=== PATIENT | female | born 1940 | race Caucasian/White ===

== ENCOUNTER 2016-12-03 10:37 | Outpatient (CLI) | payer MEDICARE, OTHER ==
--- NOTE | 2016-12-03 11:18 | XRAY Report ---
TWO VIEW CHEST: 12/03/2016 CLINICAL INDICATION: A 76-year-old with cough, [id number] smoking history, recent upper respiratory infection. COMPARISON: 04/28/2006. FINDINGS: Frontal and lateral views of the chest demonstrate a normal cardiac silhouette. The lungs are clear. No effusion or pneumothorax is present. IMPRESSION: NO EVIDENCE OF ACUTE CARDIOPULMONARY DISEASE. 11:9:30 JOB #: [id number] EXT JOB #:[id number]
== END 2016-12-03 10:38 | disposition home or self-care (01) ==
LOC: DI 10:37
PROVIDERS: ATTEND Physician Assistant Medical
DX: R05 Cough (principal)
CPT/HCPCS: 71020

== ENCOUNTER 2017-01-07 08:15 | Outpatient (CLI) | payer MEDICARE, OTHER ==
[2017-01-07 15:52] LABS: BASOPHILS # (AUTO) 0.1 10^3/uL (0.0-0.1); BASOPHILS % (AUTO) 1.3 %; EOSINOPHILS # (AUTO) 0.4 10^3/uL (0.0-0.7); EOSINOPHILS % (AUTO) 6.7 %; HCT - HEMATOCRIT 40.7 % (37.0-47.0); HGB - HEMOGLOBIN 13.6 g/dL (12.0-16.0); LYMPHOCYTES # (AUTO) 1.6 10^3/uL (1.5-3.5); LYMPHOCYTES % (AUTO) 27.4 %; MEAN CORPUSCULAR HEMOGLOBIN 32.1 pg (27.0-31.0); MEAN CORPUSCULAR HGB CONC 33.4 g/dL (32.0-36.0); MEAN CORPUSCULAR VOLUME 95.9 fL (81.0-99.0); MEAN PLATELET VOLUME 7.2 fL (7.9-10.8); MONOCYTES # (AUTO) 0.5 10^3/uL (0.0-1.0); MONOCYTES % (AUTO) 8.9 %; NEUTROPHILS # (AUTO) 3.3 10^3/uL (1.5-6.6); NEUTROPHILS % (AUTO) 55.7 %; NUCLEATED RED BLOOD CELLS AUTO 0.1 /100WBC; RED BLOOD COUNT 4.25 10^6/uL (4.20-5.40); RED CELL DISTRIBUTION WIDTH 13.9 % (12.0-15.0); UNCORRECTED WHITE BLOOD COUNT 5.9 x10^3/uL; WHITE BLOOD COUNT 5.9 x10^3/uL (4.8-10.8)
[2017-01-07 16:07] LABS: ALBUMIN/GLOBULIN RATIO 1.5 (1.0-2.2); BILIRUBIN,TOTAL 0.8 mg/dL (0.2-1.0); BUN - BLOOD UREA NITROGEN 13 mg/dL (6-20); CALCIUM 9.6 mg/dL (8.5-10.3); CARBON DIOXIDE - CO2 29 mmol/L (21-32); CHLORIDE 104 mmol/L (101-111); CHOL/HDL RATIO 2.8 (<4.4); CHOLESTEROL 165 mg/dL; CREATININE 0.8 mg/dL (0.4-1.0); GFR - MDRD 70 (>89); GLUCOSE 100 mg/dL (70-100); HDL CHOLESTEROL 59 mg/dL; LDL/HDL RATIO 1.5 (<4.4); SODIUM 142 mmol/L (135-145); TOTAL PROTEIN 6.7 g/dL (6.7-8.2); TRIGLYCERIDES 98 mg/dL; VLDL CHOLESTEROL 20 mg/dL
== END 2017-01-07 08:16 | disposition home or self-care (01) ==
LOC: LAB.R 08:15
PROVIDERS: ATTEND Physician Assistant Medical
DX: M81.0 Age-related osteoporosis without current pathological fracture (principal); F41.9 Anxiety disorder, unspecified; Z79.899 Other long term (current) drug therapy
CPT/HCPCS: 80053; 80061; 82306; 84443; 85025

== ENCOUNTER 2017-07-08 12:00 | Outpatient (CLI) | payer MEDICARE, OTHER ==
--- NOTE | 2017-07-09 14:01 | XRAY Report ---
EXAM: RIGHT HAND RADIOGRAPHY EXAM DATE: 07/08/2017 12:13 PM. CLINICAL HISTORY: Osteoarthritis of hand. COMPARISON: None. TECHNIQUE: 3 views. FINDINGS: Bones: Normal. No fractures or bone lesions. Joints: Moderately severe osteoarthritic change seen at the first CMC joint with "olbw-fu-ofli" appea rajan and marginal arthrosis. IP joints at the second through fifth fingers are also moderately narrow. Soft Tissues: Normal. No soft tissue swelling. IMPRESSION: 1. Moderate to severe osteoarthritic change at the first CMC joint with "nugd-il-shlk" appearance and marginal arthrosis. 2. IP joints of the second to fifth fingers also moderately narrow. [facility] Referring Provider Line: [phone] SITE ID: [id number]
== END 2017-07-08 12:01 | disposition home or self-care (01) ==
LOC: DI 12:00
PROVIDERS: ATTEND Physician Assistant Medical
DX: M19.041 Primary osteoarthritis, right hand (principal)

== ENCOUNTER 2017-12-13 16:48 | Emergency (ER) | payer MEDICARE, OTHER ==
--- NOTE | 2017-12-13 17:07 | ED Physician Documentation ---
PD HPI NVD - Stated complaint Stated Complaint: V/D - Chief complaint Chief Complaint: Abd Pain - History obtained from History obtained from: Patient - History of Present Illness Timing - onset: How many hours ago (4), Today Timing - duration: Hours (4) Timing - details: Abrupt onset, Still present Associated symptoms: No: Fever, Abdominal pain, Hematemesis, Hematochezia, Near syncope / syncope Contributing factors: Bad food (she had eggs benedict at [employer] this mroning and thought it tasted bad.). No: Sick contact Improved by: No: Vomiting Worsened by: Eating Similar symptoms before: Has not had sx before Recently seen: Not recently seen Review of Systems Constitutional: denies: Fever, Chills, Myalgias Nose: denies: Rhinorrhea / runny nose, Congestion Throat: denies: Sore throat Cardiac: denies: Chest pain / pressure Respiratory: denies: Cough GI: reports: Nausea, Vomiting, Diarrhea. denies: Abdominal Pain, Abdominal Swelling : denies: Dysuria, Frequency Skin: denies: Rash, Lesions Neurologic: denies: Near syncope, Altered mental status PD PAST MEDICAL HISTORY - Past Medical History Cardiovascular: Hypertension, Coronary artery disease, [place] Respiratory: None Endocrine/Autoimmune: None GI: None : None HEENT: Macular degeneration Psych: None Musculoskeletal: None Derm: None - Past Surgical History Past Surgical History: Yes General: Appendectomy Cardiovascular: Coronary stent - Present Medications Home Medications: Ambulatory Orders Medication Instructions Recorded Confirmed Aspirin [Aspir 81] 81 mg PO DAILY 06/16/13 08/26/15 Atorvastatin Calcium [Lipitor] 60 mg PO HS 06/16/13 08/26/15 Carvedilol [Coreg] 3.125 mg PO BID 06/16/13 08/26/15 Hydrocodone/Acetaminophen [[place] 10 - 325 mg PO 5XD 08/27/15 08/27/15 10-325 Tablet] LORazepam [Lorazepam] 1 mg PO QPM 08/27/15 08/27/15 Diphenoxylate HCl/Atropine 1 each PO Q6H PRN #12 tablet 12/13/17 [Diphenoxylate-Atrop 2.5-0.025] Ondansetron Odt [Zofran] 4 mg TL Q6H PRN #10 tablet 12/13/17 - Allergies Allergies/Adverse Reactions: Allergies Allergy/AdvReac Type Severity Reaction Status Date / Time clopidogrel bisulfate * Allergy Severe Rash Verified 08/26/15 09:41 [From Plavix] erythromycin base Allergy Mild Rash Verified 08/26/15 09:41 [Erythromycin Base] Penicillins Allergy Mild Rash Verified 08/26/15 09:41 spironolactone Allergy Mild Rash Verified 08/26/15 09:41 diazepam [From Valium] AdvReac Mild Anxiety Verified 08/26/15 09:41 - Social History Does the pt smoke?: No Smoking Status: Never smoker Does the pt drink ETOH?: Yes Does the pt have substance abuse?: No PD ED PE NORMAL - Vitals Vital signs reviewed: Yes - General General: Alert and oriented X 3, Well developed/nourished, Other (actively vomiting. Appears uncomfortable. ) - HEENT HEENT: Pharynx benign - Neck Neck: Supple, no meningeal sign, No adenopathy - Cardiac Cardiac: RRR, No murmur - Respiratory Respiratory: Clear bilaterally - Abdomen Abdomen: Soft, Non tender, Non distended, No organomegaly. No: Normal bowel sounds (increased) - Female Female : Deferred - Rectal Rectal: Deferred - Back Back: No CVA TTP - Derm Derm: Normal color, Warm and dry - Extremities Extremities: No tenderness to palpate, Normal ROM s pain - Neuro Neuro: Alert and oriented X 3, No motor deficit, Normal speech Results - Vitals Vitals: Vital Signs - 24 hr 12/13/17 12/13/17 16:56 18:52 Temperature 35.8 C L Heart Rate 86 90 Respiratory 20 16 Rate Blood Pressure 187/97 H 169/86 H O2 Saturation 100 97 Oxygen O2 Source Room air - Labs Labs: Laboratory Tests 12/13/17 17:39 Sodium 141 Potassium 3.4 L Chloride 104 Carbon Dioxide 25 Anion Gap 12.0 BUN 15 Creatinine 0.8 Estimated GFR (MDRD) 70 L Glucose 128 H Calcium 9.6 Total Bilirubin 1.1 H AST 27 ALT 29 Alkaline Phosphatase 95 Total Protein 7.1 Albumin 4.5 Globulin 2.6 Albumin/Globulin Ratio 1.7 Lipase 49 PD MEDICAL DECISION MAKING - ED course Complexity details: re-evaluated patient (much improved with IV fluids and meds , and taking orals well. Feels much better. ), considered differential (abrupt onset vomiting and diarrhea without abd pain nor tenderness. I did not feel workup needed. ), d/w patient Departure - Departure Disposition: 01 Home, Self Care Clinical Impression: Nausea vomiting and diarrhea Food poisoning Qualifiers: Encounter type: initial encounter Injury intent: accidental or unintentional Qualified Code(s): T62.91XA - Toxic effect of unspecified noxious substance eaten as food, accidental (unintentional), initial encounter Condition: Stable Record reviewed to determine appropriate education?: Yes Instructions: ED Food Poison Or Gastroenteritis Follow-Up: Madiha Daley PA-C [Primary Care Provider] - Prescriptions: Diphenoxylate HCl/Atropine [Diphenoxylate-Atrop 2.5-0.025] 1 each PO Q6H PRN # 12 tablet PRN Reason: Diarrhea Ondansetron Odt [Zofran] 4 mg TL Q6H PRN #10 tablet PRN Reason: Nausea / Vomiting Comments: Abrupt symptoms of stomach virus or food poisoning like this typically is short lived and will improve in 12-24 hours. Use ondansetron if needed for nausea and Lomotil if needed for diarrhea. Tylenol if needed for cramps or pains. Small frequent fluids. [place] food initially and progress as able. Recheck if not better in a day. Discharge Date/Time: 12/13/17 19:18
[2017-12-13] MEDS ORDERED: SODIUM CHLORIDE 0.9% 1,000 ML IV ONE (17:23)
[2017-12-13] MEDS ORDERED: ONDANSETRON 4 MG/2 ML VIAL IVP STA (17:23)
[2017-12-13] MEDS ORDERED: DIPHENOX/ATROPINE 2.5/0.025 MG TABLET PO STA (17:24)
[2017-12-13 17:57] LABS: ALBUMIN 4.5 g/dL (3.2-5.5); ALBUMIN/GLOBULIN RATIO 1.7 (1.0-2.2); BILIRUBIN,TOTAL 1.1 mg/dL (0.2-1.0); CALCIUM 9.6 mg/dL (8.5-10.3); CREATININE 0.8 mg/dL (0.4-1.0); TOTAL PROTEIN 7.1 g/dL (6.7-8.2)
[2017-12-13 18:53] VITALS: BP 169/86
== END 2017-12-13 19:18 | disposition home or self-care (01) ==
LOC: ED 16:48
DX: T62.8X1A Toxic effect of other specified noxious substances eaten as food, accidental (unintentional), initial encounter (principal); R11.2 Nausea with vomiting, unspecified; R19.7 Diarrhea, unspecified; I10 Essential (primary) hypertension; Z79.82 Long term (current) use of aspirin
CPT/HCPCS: 36415; 80053; 83690; 96361; 96374; 99283; A9270

== ENCOUNTER 2018-01-14 08:35 | Outpatient (CLI) | payer MEDICARE, OTHER ==
[2018-01-14 11:45] LABS: BASOPHILS # (AUTO) 0.1 10^3/uL (0.0-0.1); BASOPHILS % (AUTO) 0.9 %; EOSINOPHILS # (AUTO) 0.3 10^3/uL (0.0-0.7); EOSINOPHILS % (AUTO) 4.9 %; LYMPHOCYTES # (AUTO) 1.4 10^3/uL (1.5-3.5); LYMPHOCYTES % (AUTO) 24.2 %; MEAN CORPUSCULAR HEMOGLOBIN 33.1 pg (27.0-31.0); MEAN CORPUSCULAR HGB CONC 33.4 g/dL (32.0-36.0); MEAN CORPUSCULAR VOLUME 99.4 fL (81.0-99.0); MEAN PLATELET VOLUME 7.1 fL (7.9-10.8); MONOCYTES # (AUTO) 0.5 10^3/uL (0.0-1.0); MONOCYTES % (AUTO) 8.9 %; NEUTROPHILS # (AUTO) 3.6 10^3/uL (1.5-6.6); NEUTROPHILS % (AUTO) 61.1 %; PLT - PLATELET COUNT 280 10^3/uL (130-450); RED BLOOD COUNT 4.22 10^6/uL (4.20-5.40); RED CELL DISTRIBUTION WIDTH 13.9 % (12.0-15.0); WHITE BLOOD COUNT 5.9 x10^3/uL (4.8-10.8)
[2018-01-14 11:57] LABS: ALBUMIN/GLOBULIN RATIO 1.7 (1.0-2.2); ALKALINE PHOSPHATASE 82 IU/L (42-121); ALT ALANINE AMINOTRANSFERASE 18 IU/L (10-60); AST ASPARTATE AMINOTRANSFERASE 21 IU/L (10-42); BILIRUBIN,TOTAL 0.5 mg/dL (0.2-1.0); BUN - BLOOD UREA NITROGEN 14 mg/dL (6-20); CALCIUM 9.1 mg/dL (8.5-10.3); CARBON DIOXIDE - CO2 29 mmol/L (21-32); CHLORIDE 103 mmol/L (101-111); CHOL/HDL RATIO 2.7 (<4.4); CHOLESTEROL 159 mg/dL; CREATININE 0.6 mg/dL (0.4-1.0); GFR - MDRD 97 (>89); GLUCOSE 90 mg/dL (70-100); HDL CHOLESTEROL 59 mg/dL; LDL CHOLESTEROL,CALCULATED 80 mg/dL; LDL/HDL RATIO 1.4 (<4.4); SODIUM 139 mmol/L (135-145); TOTAL PROTEIN 6.4 g/dL (6.7-8.2); VLDL CHOLESTEROL 20 mg/dL
== END 2018-01-14 08:36 | disposition home or self-care (01) ==
LOC: LAB.R 08:35
PROVIDERS: ATTEND Physician Assistant Medical
DX: M81.0 Age-related osteoporosis without current pathological fracture (principal); Z79.899 Other long term (current) drug therapy; I10 Essential (primary) hypertension; E78.2 Mixed hyperlipidemia; F41.9 Anxiety disorder, unspecified
CPT/HCPCS: 80053; 80061; 82306; 83721; 84443; 85025

== ENCOUNTER 2018-01-24 10:10 | Outpatient (CLI) | payer MEDICARE, OTHER ==
--- NOTE | 2018-01-24 13:45 | DEXA Report ---
Procedure Date: 01/24/2018 Accession Number: [id number] / [id number] Procedure: DEX - Dexa Spine and/or Hip CPT Code: FULL RESULT: EXAM: Dexa Spine and/or Hip DATE: 01/24/2018 10:33 AM CLINICAL HISTORY: POSTMENOPAUSAL TECHNIQUE: Dual energy x-ray absorptiometry (DXA) was performed on a COTA System. Regions measured are the AP Spine, femoral neck, and if needed forearm. COMPARISON: None. In accordance with the International Society for Clinical Densitometry (ISCD) guidelines, data from previous exams may be reanalyzed using current recommendations and techniques. This is done to allow a more accurate basis for comparison with the current study. FINDINGS: The data for the lumbar spine is as follows: BMD (g/cm/cm) T-SCORE Z-SCORE REGION L1 0.907 -1.9 -0.6 L2 0.954 -2.0 -0.8 L3 1.088 -0.9 0.3 L4 1.243 0.4 1.6 TOTAL 1.059 -1.0 0.2 NOTE: All evaluable vertebrae are used for classification The data for the hip is as follows: BMD (g/cm/cm) T-SCORE Z-SCORE REGION Neck 0.806 -1.7 0.0 TOTAL 0.796 -1.7 -0.2 NOTE: The femoral neck or total proximal femur, whichever is lowest, is used for classification. IMPRESSION: THE WHO CLASSIFICATION BASED ON THE INTERNATIONAL REFERENCE STANDARD IS OSTEOPENIA. THE FRACTURE RISK IS INCREASED. RECOMMENDATION: Patients with diagnosis of osteoporosis or osteopenia should have regular bone mineral density assessment. For those eligible for Medicare, routine testing is allowed once every 2 years. Testing frequency can be increased for patients who have rapidly progressing disease or for those who are receiving medical therapy to restore bone mass. COMMENT: World Health Organization (WHO) definitions for osteoporosis and osteopenia: NORMAL BMD: T-score at -1.0 or higher, fracture risk is low OSTEOPENIA BMD: T-score between -1.0 and -2.5, fracture risk is increased. OSTEOPOROSIS BMD: T-score at -2.5 or lower, fracture risk is high. National Osteoporosis Foundation recommends: 1. Obtain adequate dietary calcium (at least 1200 mg per day) and vitamin D (400-800 international units per day). 2. Participate, as appropriate, in regular weightbearing and muscle-strengthening exercise. 3. Avoid tobacco use and reduce alcohol and caffeine intake. 4. For more detailed information see the website at www.NOF.org.
== END 2018-01-24 10:11 | disposition home or self-care (01) ==
LOC: DI 10:10
PROVIDERS: ATTEND Physician Assistant Medical
DX: M85.89 Other specified disorders of bone density and structure, multiple sites (principal)
CPT/HCPCS: 77080

== ENCOUNTER 2018-02-25 07:29 | Outpatient (CLI) | payer MEDICARE, OTHER ==
--- NOTE | 2018-02-25 13:24 | Ultrasound Report ---
Procedure Date: 02/25/2018 Accession Number: [id number] / [id number] Procedure: US - Retroperitoneal Limited CPT Code: FULL RESULT: EXAM: Retroperitoneal Limited DATE: 02/25/2018 8:26 AM CLINICAL HISTORY: AAA COMPARISON: 08/17/2015. TECHNIQUE: Real-time sonographic imaging of retroperitoneal vascular structures, including color-flow, was performed by the vegetable grader. Multiple canvas products sales representative static images were saved for review. FINDINGS: The infrarenal aortic aneurysm is stable at 2 x 2 centimeters in maximal diameter. The proximal abdominal aorta measures up to 2.3 cm in the mid abdominal aorta measures up to 2.3 cm. Right common iliac artery measures up to 0.9 x 1.3 cm and the left common iliac artery measures up to 1.0 x 1.2 cm. Vessels are patent by color Doppler. Atherosclerosis is noted throughout. IMPRESSION: Stable infrarenal abdominal aortic aneurysm, 3.2 cm. [facility]
== END 2018-02-25 07:30 | disposition home or self-care (01) ==
LOC: DI 07:29
PROVIDERS: ATTEND Physician Assistant Medical
DX: I71.4 Abdominal aortic aneurysm, without rupture (principal); Z78.0 Asymptomatic menopausal state
CPT/HCPCS: 76775

== ENCOUNTER 2018-08-23 08:00 | Outpatient (CLI) | payer MEDICARE, OTHER ==
[2018-08-23 13:10] LABS: BILIRUBIN,URINE NEGATIVE (NEGATIVE); GLUCOSE, URINE (UA) NEGATIVE (NEGATIVE); KETONES,URINE (UA) NEGATIVE (NEGATIVE); LEUKOCYTE ESTERASE, URINE SMALL (NEGATIVE); NITRITE,URINE NEGATIVE (NEGATIVE); OCCULT BLOOD,URINE NEGATIVE (NEGATIVE); PH,URINE 6.5 PH (5.0-7.5); PROTEIN,URINE NEGATIVE (NEGATIVE); UROBILINOGEN,URINE 0.2 (NORMAL) E.U./dL (NORMAL)
[2018-08-23 13:13] LABS: CLARITY,URINE CLEAR (CLEAR)
[2018-08-23 13:17] LABS: BACTERIA,URINE Rare /HPF (None Seen); RBC,URINE 0-5 /HPF (0-5); SQUAMOUS EPITHELIAL CELL,UR FEW Squamous (<= Few)
[2018-08-23 13:20] LABS: BASOPHILS # (AUTO) 0.1 10^3/uL (0.0-0.1); BASOPHILS % (AUTO) 0.8 %; EOSINOPHILS # (AUTO) 0.2 10^3/uL (0.0-0.7); EOSINOPHILS % (AUTO) 2.5 %; HGB - HEMOGLOBIN 13.1 g/dL (12.0-16.0); LYMPHOCYTES # (AUTO) 1.3 10^3/uL (1.5-3.5); LYMPHOCYTES % (AUTO) 15.5 %; MEAN CORPUSCULAR HEMOGLOBIN 34.2 pg (27.0-31.0); MEAN CORPUSCULAR VOLUME 97.7 fL (81.0-99.0); MEAN PLATELET VOLUME 7.3 fL (7.9-10.8); MONOCYTES # (AUTO) 0.5 10^3/uL (0.0-1.0); MONOCYTES % (AUTO) 6.4 %; NEUTROPHILS % (AUTO) 74.8 %; PLT - PLATELET COUNT 351 10^3/uL (130-450); RED BLOOD COUNT 3.82 10^6/uL (4.20-5.40); RED CELL DISTRIBUTION WIDTH 14.3 % (12.0-15.0); WHITE BLOOD COUNT 8.1 x10^3/uL (4.8-10.8)
[2018-08-23 13:36] LABS: ALBUMIN/GLOBULIN RATIO 1.6 (1.0-2.2); ALKALINE PHOSPHATASE 78 IU/L (42-121); ALT ALANINE AMINOTRANSFERASE 19 IU/L (10-60); AST ASPARTATE AMINOTRANSFERASE 22 IU/L (10-42); BILIRUBIN,TOTAL 0.4 mg/dL (0.2-1.0); BUN - BLOOD UREA NITROGEN 13 mg/dL (6-20); CALCIUM 9.5 mg/dL (8.5-10.3); CARBON DIOXIDE - CO2 28 mmol/L (21-32); CHLORIDE 102 mmol/L (101-111); CREATININE 0.7 mg/dL (0.4-1.0); GFR - MDRD 81 (>89); GLUCOSE 113 mg/dL (70-100); SODIUM 141 mmol/L (135-145); TOTAL PROTEIN 6.5 g/dL (6.7-8.2)
[2018-08-23 13:37] LABS: CRP - C-REACTIVE PROTEIN < 1.0 mg/dL (0-1.0)
== END 2018-08-23 23:59 | disposition home or self-care (01) ==
LOC: LAB.R 08:00
PROVIDERS: ATTEND Physician Assistant Medical
DX: R53.83 Other fatigue (principal); M15.9 Polyosteoarthritis, unspecified
CPT/HCPCS: 80053; 81001; 81003; 84443; 85025; 85651; 86140; 87086

== ENCOUNTER 2018-11-20 10:56 | Emergency (ER) | payer MEDICARE, OTHER ==
--- NOTE | 2018-11-20 12:03 | XRAY Report ---
Reason: SOB,cough Procedure Date: 11/20/2018 Accession Number: [id number] / [id number] Procedure: XR - Chest 2 View X-Ray CPT Code: 45475 FULL RESULT: EXAM: CHEST RADIOGRAPHY EXAM DATE: 11/20/2018 11:26 AM. CLINICAL HISTORY: SOB,cough. COMPARISON: CHEST 2 VIEW PA/LAT 12/03/2016 10:46 AM. TECHNIQUE: 2 views. FINDINGS: Lungs/Pleura: No focal opacities evident. No pleural effusion. No pneumothorax. Increased volumes noted. Bronchial wall thickening noted. Mediastinum: Heart and mediastinal contours are unremarkable. Other: None. IMPRESSION: 1. Nonspecific bronchial wall thickening could represent bronchitis or reactive airways disease. 2. No consolidation, effusions or pneumothorax. 3. Probable COPD. [facility]
[2018-11-20] MEDS ORDERED: LIDOCAINE 1% 2 ML VIAL MC ONE (12:38)
[2018-11-20] MEDS ORDERED: IPRATROPIUM/ALBUTEROL 3 ML NEB INH STA (12:38)
[2018-11-20] MEDS ORDERED: CHERRY SYRUP 10 ML UDC PO ONE (12:38)
[2018-11-20] MEDS ORDERED: cefTRIAXone 1 GM VIAL IM STA (12:38)
[2018-11-20] MEDS ORDERED: DEXAMETHASONE 10 MG/ML VIAL PO STA (12:38)
--- NOTE | 2018-11-20 12:42 | ED Physician Documentation ---
PD HPI URI - Stated complaint Stated Complaint: SOA COUGHING - Chief complaint Chief Complaint: Resp - History obtained from History obtained from: Patient, Family - History of Present Illness Timing - onset: How many days ago (5) Timing duration: Days (5) Timing details: Gradual onset, Still present Associated symptoms: Nasal congestion, Rhinorrhea, Dry cough, Dyspnea Contributing factors: Sick contact Improves by: Rest, Medication Similar symptoms before: Diagnosis (bronchitis) Recently seen: Not recently seen - Additional information Additional information: . 78-year-old female with cough and congestion feels some shortness of breath associated with this and she is short of breath anytime she tries to walk any distance. She is not bringing up any phlegm. She has not had a fever. She has used an inhaler previously but it is Review of Systems Constitutional: denies: Fever Eyes: denies: Decreased vision Ears: denies: Ear pain Nose: reports: Rhinorrhea / runny nose, Congestion Throat: denies: Sore throat Cardiac: denies: Chest pain / pressure, Palpitations Respiratory: reports: Dyspnea, Cough GI: denies: Abdominal Pain, Nausea, Vomiting : denies: Dysuria PD PAST MEDICAL HISTORY - Past Medical History Cardiovascular: Hypertension, Coronary artery disease, [place] Respiratory: None Endocrine/Autoimmune: None GI: None : None HEENT: Macular degeneration Psych: None Musculoskeletal: None Derm: None - Past Surgical History Past Surgical History: Yes General: Appendectomy Cardiovascular: Coronary stent - Present Medications Home Medications: Ambulatory Orders Medication Instructions Recorded Confirmed Atorvastatin Calcium [Lipitor] 60 mg PO HS 06/16/13 11/20/18 Carvedilol [Coreg] 3.125 mg PO BID 06/16/13 11/20/18 Hydrocodone/Acetaminophen [[place] 10 - 325 mg PO 5XD 08/27/15 11/20/18 10-325 Tablet] Ondansetron Odt [Zofran] 4 mg TL Q6H PRN #10 tablet 12/13/17 11/20/18 RX: Albuterol Sulf [Ventolin Hfa 1 - 2 puffs INH Q4HR PRN #1 inhaler 11/20/18 Inhaler] RX: Amlodipine Besylate 1 tab PO DAILY 11/20/18 11/20/18 RX: Cefdinir 300 mg PO BID #20 capsule 11/20/18 RX: Gabapentin 1 tab PO BID PRN 11/20/18 11/20/18 RX: Pantoprazole [Protonix] 1 tab PO DAILY 11/20/18 11/20/18 RX: traZODone [Desyrel] 1 tab PO QPM 11/20/18 11/20/18 - Allergies Allergies/Adverse Reactions: Allergies Allergy/AdvReac Type Severity Reaction Status Date / Time clopidogrel bisulfate * Allergy Severe Rash Verified 11/20/18 11:06 [From Plavix] erythromycin base Allergy Mild Rash Verified 11/20/18 11:06 [Erythromycin Base] Penicillins Allergy Mild Rash Verified 11/20/18 11:06 spironolactone Allergy Mild Rash Verified 11/20/18 11:06 diazepam [From Valium] AdvReac Mild Anxiety Verified 11/20/18 11:06 - Social History Does the pt smoke?: No Smoking Status: Never smoker Does the pt drink ETOH?: Yes Does the pt have substance abuse?: No PD ED PE NORMAL - Vitals Vital signs reviewed: Yes (hypertensive mild ) - General General: Alert and oriented X 3, No acute distress, Well developed/nourished - HEENT HEENT: Atraumatic, PERRL, EOMI, Ears normal - Neck Neck: Supple, no meningeal sign, No bony TTP - Cardiac Cardiac: RRR, No murmur - Respiratory Respiratory: No respiratory distress, Other (diminished breath sounds ) - Abdomen Abdomen: Soft, Non tender - Back Back: No CVA TTP, No spinal TTP - Derm Derm: Normal color, Warm and dry, No rash - Extremities Extremities: No deformity, No edema - Neuro Neuro: Alert and oriented X 3, ornamental plasterer helper 2-12 intact, No motor deficit, No sensory deficit, Normal speech Eye Opening: Spontaneous Motor: Obeys Commands Verbal: Oriented GCS Score: 15 - Psych Psych: Normal mood, Normal affect Results - Vitals Vitals: Vital Signs - 24 hr 11/20/18 11/20/18 11/20/18 11:04 12:50 13:24 Temperature 36.9 C 36.4 C L Heart Rate 83 63 71 Respiratory 17 20 12 Rate Blood Pressure 132/72 H 143/64 H O2 Saturation 95 94 Oxygen O2 Source Room air - Rads (name of study) chest Radiology: Prelim report reviewed, EMP read indepedently, See rad report PD MEDICAL DECISION MAKING - ED course Complexity details: reviewed results, re-evaluated patient, considered differential, d/w patient, d/w family ED course: 78-year-old female with a cough and congestion with some shortness of breath has some reactive airway disease she has marked improvement with use of a DuoNeb treatment she is taught how to use the spacer and we will place her on some antibiotic and we have given her a dose of dexamethasone. Departure - Departure Disposition: 01 Home, Self Care Clinical Impression: Bronchitis, asthmatic Condition: Stable Instructions: ED Bronchitis Asthmatic Follow-Up: Madiha Daley PA-C [Provider Admit Priv/Credential] - Prescriptions: RX: Albuterol Sulf [Ventolin Hfa Inhaler] 1 - 2 puffs INH Q4HR PRN #1 inhaler PRN Reason: Shortness Of Air/Wheezing RX: Cefdinir 300 mg PO BID #20 capsule Discharge Date/Time: 11/20/18 13:43
[2018-11-20 13:25] VITALS: BP 143/64
== END 2018-11-20 13:43 | disposition home or self-care (01) ==
LOC: ED 10:56
DX: J45.909 Unspecified asthma, uncomplicated (principal); I10 Essential (primary) hypertension
CPT/HCPCS: 71046; 94640; 99283; A9270

== ENCOUNTER 2018-12-06 16:11 | Outpatient (CLI) | payer MEDICARE, OTHER ==
[2018-12-06 16:40] LABS: HGB - HEMOGLOBIN 12.8 g/dL (12.0-16.0); MEAN CORPUSCULAR HEMOGLOBIN 32.4 pg (27.0-31.0); MEAN CORPUSCULAR HGB CONC 33.1 g/dL (32.0-36.0); MEAN CORPUSCULAR VOLUME 97.8 fL (81.0-99.0); MEAN PLATELET VOLUME 6.3 fL (7.9-10.8); RED BLOOD COUNT 3.94 10^6/uL (4.20-5.40); RED CELL DISTRIBUTION WIDTH 13.8 % (12.0-15.0); WHITE BLOOD COUNT 7.3 x10^3/uL (4.8-10.8)
[2018-12-06 16:46] LABS: ALBUMIN 4.1 g/dL (3.2-5.5); ALBUMIN/GLOBULIN RATIO 1.9 (1.0-2.2); BILIRUBIN,TOTAL 0.6 mg/dL (0.2-1.0); CALCIUM 9.5 mg/dL (8.5-10.3); CREATININE 0.8 mg/dL (0.4-1.0); TOTAL PROTEIN 6.3 g/dL (6.7-8.2)
== END 2018-12-06 16:12 | disposition home or self-care (01) ==
LOC: LAB 16:11
PROVIDERS: ATTEND Nurse Practitioner
DX: R60.9 Edema, unspecified (principal); I25.10 Atherosclerotic heart disease of native coronary artery without angina pectoris; I10 Essential (primary) hypertension
CPT/HCPCS: 36415; 80053; 83880; 85027

== ENCOUNTER 2018-12-08 08:31 | Outpatient (CLI) | payer MEDICARE, OTHER | END 2018-12-08 08:32 | disposition home or self-care (01) | LOC: DI 08:31 | PROVIDERS: ATTEND Nurse Practitioner | DX: R60.9 Edema, unspecified (principal); I25.10 Atherosclerotic heart disease of native coronary artery without angina pectoris; I10 Essential (primary) hypertension | CPT/HCPCS: 93306 ==

== ENCOUNTER 2019-03-23 08:09 | Outpatient (CLI) | payer MEDICARE, OTHER ==
[2019-03-23 08:43] LABS: CHOL/HDL RATIO 2.4 (<4.4); CHOLESTEROL 151 mg/dL; HDL CHOLESTEROL 62 mg/dL; LDL CHOLESTEROL,CALCULATED 78 mg/dL; LDL/HDL RATIO 1.3 (<4.4); VLDL CHOLESTEROL 11 mg/dL
== END 2019-03-23 08:10 | disposition home or self-care (01) ==
LOC: LAB 08:09
PROVIDERS: ATTEND Internal Medicine
DX: E78.2 Mixed hyperlipidemia (principal)
CPT/HCPCS: 36415; 80061; 83721

== ENCOUNTER 2019-07-05 09:00 | Outpatient (CLI) | payer MEDICARE, OTHER | END 2019-07-05 23:59 | disposition home or self-care (01) | LOC: LAB.R 09:00 | PROVIDERS: ATTEND Family Medicine | DX: R30.0 Dysuria (principal) | CPT/HCPCS: 87086 ==

== ENCOUNTER 2019-07-11 17:49 | Emergency (ER) | payer MEDICARE, OTHER ==
[2019-07-11 18:02] VITALS: BP 150/72
--- NOTE | 2019-07-11 18:09 | ED Physician Documentation ---
PD HPI UPPER EXT INJURY - Stated complaint Stated Complaint: GLF/RT ARM, BACK PX - Chief complaint Chief Complaint: Ext Problem - History obtained from History obtained from: Patient - History of Present Illness Location: Right, Shoulder, Arm Type of injury: Fall (She pushed grocery cart firmly to get it back into its shore and was off balance and fell forward onto her right shoulder. She denies other injury. She is hurting in the upper humerus and shoulder area. She denies prior injury to that area.) Where injury occurred: Other (Grocery store parking lot) Timing - onset: How many hours ago (2), Today Timing - duration: Hours (2) Timing - details: Abrupt onset, Still present Worsened by: Moving, Palpating Associated symptoms: No: Weakness, Numbness, Swelling Contributing factors: No: Anticoagulated Similar symptoms before: Has not had sx before Review of Systems Cardiac: denies: Chest pain / pressure Skin: denies: Abrasion (s), Laceration (s) Neurologic: denies: Altered mental status, Head injury PD PAST MEDICAL HISTORY - Past Medical History Cardiovascular: Hypertension, Coronary artery disease, [place] Respiratory: None Endocrine/Autoimmune: None GI: None : None HEENT: Macular degeneration Psych: None Musculoskeletal: None Derm: None - Past Surgical History Past Surgical History: Yes General: Appendectomy Cardiovascular: Coronary stent - Present Medications Home Medications: Ambulatory Orders Medication Instructions Recorded Confirmed Atorvastatin Calcium [Lipitor] 60 mg PO HS 06/16/13 11/20/18 carvediloL [Coreg] 3.125 mg PO BID 06/16/13 11/20/18 Hydrocodone/Acetaminophen [[place] 10 - 325 mg PO 5XD 08/27/15 11/20/18 10-325 Tablet] Ondansetron Odt [Zofran] 4 mg TL Q6H PRN #10 tablet 12/13/17 11/20/18 Albuterol Sulf [Ventolin Hfa 1 - 2 puffs INH Q4HR PRN #1 inhaler 11/20/18 Inhaler] Amlodipine Besylate 1 tab PO DAILY 11/20/18 11/20/18 Cefdinir 300 mg PO BID #20 capsule 11/20/18 Gabapentin 1 tab PO BID PRN 11/20/18 11/20/18 Pantoprazole [Protonix] 1 tab PO DAILY 11/20/18 11/20/18 traZODone [Desyrel] 1 tab PO QPM 11/20/18 11/20/18 Hydrocodone/Acetaminophen [[place] 1 each PO Q6H PRN #20 tablet 07/11/19 5-325 Tablet] - Allergies Allergies/Adverse Reactions: Allergies Allergy/AdvReac Type Severity Reaction Status Date / Time clopidogrel bisulfate * Allergy Severe Rash Verified 07/11/19 17:55 [From Plavix] erythromycin base Allergy Mild Rash Verified 07/11/19 17:55 [Erythromycin Base] Penicillins Allergy Mild Rash Verified 07/11/19 17:55 spironolactone Allergy Mild Rash Verified 07/11/19 17:55 diazepam [From Valium] AdvReac Mild Anxiety Verified 07/11/19 17:55 - Social History Does the pt smoke?: No Smoking Status: Never smoker Does the pt drink ETOH?: Yes Does the pt have substance abuse?: No PD ED PE NORMAL - Vitals Vital signs reviewed: Yes - General General: Alert and oriented X 3, No acute distress, Well developed/nourished - HEENT HEENT: Atraumatic - Neck Neck: Supple, no meningeal sign, No bony TTP, No adenopathy - Derm Derm: Normal color - Extremities Extremities: Other (The right wrist and forearm and elbow and not tender. The clavicle is also not tender. The right upper humerus has tenderness to palpation without any notable swelling. There is pain with attempted range of motion. There is no obvious dislocation by physical palpation.) - Neuro Neuro: Alert and oriented X 3, No motor deficit, No sensory deficit, Normal speech Results - Vitals Vitals: Vital Signs - 24 hr 07/11/19 17:55 Temperature 36.8 C Heart Rate 65 Respiratory 16 Rate Blood Pressure 150/72 H O2 Saturation 98 Oxygen O2 Source Room air - Rads (name of study) right humerus Radiology: Prelim report reviewed, EMP read contemporaneously (greater tuberosity nondisplaced fracture. ), See rad report PD MEDICAL DECISION MAKING - ED course Complexity details: reviewed results (looks like nondisplaced tuberosity fractu re. ), considered differential, d/w patient Departure - Departure Disposition: 01 Home, Self Care Clinical Impression: Accidental fall Qualifiers: Encounter type: initial encounter Qualified Code(s): W19.XXXA - Unspecified fall, initial encounter Fracture of greater tuberosity of humerus Qualifiers: Encounter type: initial encounter Fracture type: closed Fracture alignment: nondisplaced Laterality: right Qualified Code(s): S42.254A - Nondisplaced fracture of greater tuberosity of right humerus, initial encounter for closed fracture Condition: Stable Record reviewed to determine appropriate education?: Yes Instructions: ED Fx Upper Ext Follow-Up: Madiha Carter ARNP, TIARRA-C [Primary Care Provider] - Capo Knight MD [Provider Admit Priv/Credential] - Prescriptions: Hydrocodone/Acetaminophen [[place] 5-325 Tablet] 1 each PO Q6H PRN #20 tablet PRN Reason: Pain Comments: Use the sling much of the time. Gentle range of motion down low is okay. No overhead reaching, push pull, heavy lifting. Tylenol 4 times a day for pain or use hydrocodone if needed for worse pain. Follow-up with orthopedics or if they are unable to see you than your primary care in about 1 to 1-1/2 weeks to reevaluate if this is healing well enough and at that point they may start increasing your range of motion and exercises.
[2019-07-11] MEDS ORDERED: HYDROcod/ACETAM 5/325 MG TABLET PO STA (18:15)
--- NOTE | 2019-07-11 19:02 | XRAY Report ---
Reason: fall Procedure Date: 07/11/2019 Accession Number: [id number] / [id number] Procedure: XR - Humerus RT CPT Code: Final Report FULL RESULT: EXAM: RIGHT HUMERUS RADIOGRAPHY EXAM DATE: 07/11/2019 06:38 PM. CLINICAL HISTORY: Fall. COMPARISON: None. TECHNIQUE: 2 views. FINDINGS: Bones: The bones are osteopenic. Acute minimally displaced fracture of the humeral head which appears to be isolated to the greater tuberosity/lateral aspect. No suspicious osseous lesion. Joints: Mild acromioclavicular joint osteoarthritis. No dislocation. Other: None. IMPRESSION: 1. Acute minimally displaced fracture of the humeral head which appears to be isolated to the greater tuberosity/lateral aspect. Recommend Orthopedic Surgery consultation and CT shoulder for further evaluation. [facility]
== END 2019-07-11 19:05 | disposition home or self-care (01) ==
LOC: ED 17:49
DX: S42.254A Nondisplaced fracture of greater tuberosity of right humerus, initial encounter for closed fracture (principal); W18.30XA Fall on same level, unspecified, initial encounter; Y93.89 Activity, other specified; Y92.512 Supermarket, store or market as the place of occurrence of the external cause; I10 Essential (primary) hypertension
CPT/HCPCS: 73060; 99283; 99284; A9270

== ENCOUNTER 2019-07-18 09:14 | Outpatient (CLI) | payer MEDICARE, OTHER ==
--- NOTE | 2019-07-18 13:27 | XRAY Report ---
Reason: BACK PAIN,THORACIC LUMBAR REGION Procedure Date: 07/18/2019 Accession Number: [id number] / [id number] Procedure: XR - Lumbar Spine 2 View CPT Code: Final Report FULL RESULT: EXAM: LUMBOSACRAL SPINE RADIOGRAPHY EXAM DATE: 07/18/2019 09:36 AM. CLINICAL HISTORY: Back pain, thoracic lumbar region. COMPARISONS: XR LUMBOSACRAL SPINE 4 VIEWS 02/03/2008 7:46 AM. TECHNIQUE: 2 views. FINDINGS: Alignment: No finding of approximately 11 degrees of levoconvex thoracolumbar scoliosis centered about L2. A roughly 1.1 cm anterolisthesis of L4 on L5, apparent anterolisthesis potentially exacerbated by positioning, increased from prior. Bones: Five xso-pxv-imqaegh lumbar vertebral bodies are present. The bones are qualitatively osteopenic; this limits evaluation for underlying fractures or masses. Within these limitations, no definite fracture is seen. Disks: Within exam limitations, disk space height is mostly preserved. Facets: Significant and multilevel facet arthropathy more pronounced in the lower lumbar spine. Sacroiliac Joints: Unremarkable. Soft Tissues: Normal. The visualized bowel gas pattern is normal. IMPRESSION: Interval development of thoracolumbar scoliosis and listhesis as described. Marked osteopenia with no fracture seen as visualized. Given decreased sensitivity imposed by profound osteopenia and significant interval change in spinal configuration including listhesis, I recommend CT examination for further evaluation. [facility]
--- NOTE | 2019-07-18 13:30 | XRAY Report ---
Reason: BACK PAIN,THORACIC LUMBAR REGION Procedure Date: 07/18/2019 Accession Number: [id number] / [id number] Procedure: XR - Thoracic Spine 2 View CPT Code: Final Report FULL RESULT: EXAM: THORACIC SPINE RADIOGRAPHY EXAM DATE: 07/18/2019 09:37 AM. CLINICAL HISTORY: Back pain, thoracic/lumbar region. COMPARISON: CHEST 2 VIEW 11/20/2018 11:17 AM. CHEST 2 VIEW PA/LAT 12/03/2016 10:46 AM. TECHNIQUE: 2 views. FINDINGS: Alignment: There is thoracic kyphosis. No significant listhesis or scoliosis. Bones: The bones are qualitatively osteopenic; this limits evaluation for underlying fractures or masses. Within these limitations, there is mild loss of vertebral body height at what is likely T9, no more than 30% loss of height anteriorly. This finding is new compared to October 2018. Disks: Mild multilevel loss of disk space height. Soft Tissues: Cardiac stent is noted. The visualized lungs and cardiomediastinal silhouette are stable with redemonstration of calcifications of the aortic arch. IMPRESSION: Age indeterminate interval development of lower thoracic compression deformity in the setting of osteopenia, new compared to October 2018. RADIA
== END 2019-07-18 09:15 | disposition home or self-care (01) ==
LOC: DI 09:14
PROVIDERS: ATTEND Nurse Practitioner
DX: M51.34 Other intervertebral disc degeneration, thoracic region (principal); M43.8X4 Other specified deforming dorsopathies, thoracic region; M85.88 Other specified disorders of bone density and structure, other site; M47.816 Spondylosis without myelopathy or radiculopathy, lumbar region; M41.9 Scoliosis, unspecified; M43.16 Spondylolisthesis, lumbar region
CPT/HCPCS: 72070; 72100

== ENCOUNTER 2019-07-27 15:10 | Outpatient (CLI) | payer MEDICARE, OTHER ==
--- NOTE | 2019-07-27 16:09 | CT Report ---
Reason: DJD, L-SPINE Procedure Date: 07/27/2019 Accession Number: [id number] / [id number] Procedure: CT - LUMBAR SPINE WO CPT Code: Final Report FULL RESULT: EXAM: CT LUMBAR SPINE WITHOUT CONTRAST EXAM DATE: 07/27/2019 03:27 PM. CLINICAL HISTORY: Degenerative joint disease, back pain, status post ground-level fall, possible thoracic spine fracture on plain film radiographs. COMPARISONS: ABDOMEN/PELVIS W/ 08/26/2015 10:19 PM LUMBAR SPINE 2 VIEW 07/18/2019 9:27 AM. TECHNIQUE: Thin-section axial images were acquired of the lumbar spine from T12 to S1 without contrast. Post-processing: Coronal and sagittal reformats. Other: None. In accordance with CT protocol optimization, one or more of the following dose reduction techniques were utilized for this exam: automated exposure control, adjustment of mA and/or KV based on patient size, or use of iterative reconstructive technique. FINDINGS: Alignment: There is 4 mm leftward displacement of L3 on L4. There is 4 degrees levoscoliosis measured between L1-L2 and L4-L5. There is 6 mm anterolisthesis of L4 on L5. Bones: Five [id number] lumbar vertebral bodies are present. There is defect of bilateral L5 pars intra-articularis. No social or malalignment. There is adjacent osteophytosis. Disk Levels/Facets: T12-L1: Unremarkable. L1-L2: Unremarkable. L2-L3: Unremarkable. L3-L4: There is disk height loss. There is mild disk bulge. There is moderate bilateral facet hypertrophy. There is mild central canal narrowing. There is mild bilateral neural foraminal narrowing. L4-L5: There is 6 mm anterolisthesis of L4 on L5. There is a broad-based disk bulge. There is severe bilateral facet hypertrophy. There is moderate central canal narrowing. There is mild bilateral neural foraminal narrowing. L5-S1: Disk unremarkable. Moderate bilateral facet hypertrophy. No central canal or neural foraminal narrowing. Musculature: Normal. No fatty atrophy. Other: The aorta is calcified. There is a 3.2 cm infrarenal abdominal aortic aneurysm. There are bilateral nonobstructing renal calculi. IMPRESSION: 1. Interval fractures of bilateral L5 pars interarticularis. 2. Interval increase in size of 3.2 cm abdominal aortic aneurysm (previously 3 cm). 3. Grade 1 anterolisthesis of L4 on L5 with severe bilateral facet hypertrophy and moderate central canal narrowing. (Unchanged) 4. L3-L4 mild central canal narrowing. 4. Mild bilateral L3-L4 and mild bilateral L4-L5 neural foraminal narrowing. 6. Nonobstructing bilateral renal calculi. RADIA
--- NOTE | 2019-07-27 16:18 | CT Report ---
Reason: WEDGE COMPRESSION FRACTURE OF THORACIC SPINE Procedure Date: 07/27/2019 Accession Number: [id number] / [id number] Procedure: CT - THORACIC SPINE WO CPT Code: Final Report FULL RESULT: EXAM: CT THORACIC SPINE WITHOUT CONTRAST EXAM DATE: 07/27/2019 03:27 PM. CLINICAL HISTORY: WEDGE COMPRESSION FRACTURE OF THORACIC SPINE, fall, back pain. COMPARISONS: LUMBAR SPINE 2 VIEW 07/18/2019 9:27 AM ABDOMEN/PELVIS W/ 08/26/2015 10:19 PM CHEST 2 VIEW 11/20/2018 11:17 AM. TECHNIQUE: Thin-section axial images were acquired of the thoracic spine from C7 to L1 without contrast. Post-processing: Coronal and sagittal reformats. Other: None. In accordance with CT protocol optimization, one or more of the following dose reduction techniques were utilized for this exam: automated exposure control, adjustment of mA and/or KV based on patient size, or use of iterative reconstructive technique. FINDINGS: Alignment: 51 degrees kyphosis measured between T2-T3 and T10-T11. Bones: Deformity of superior endplate of T10 with 30% anterior height loss. There are fracture lines evident in the superior endplate (series 3, images 104 through 106). There is a mild amount of adjacent edema. No additional fracture. Disk Levels/Facets: There is no CT evidence of central canal narrowing. No evidence of neural foraminal narrowing. Musculature: Normal. No fatty atrophy. Other: The visualized lungs are clear. There are vascular calcifications. IMPRESSION: 1. Acute or subacute T10 wedge compression fracture with 30% anterior height loss. 2. Otherwise unremarkable thoracic spine CT. RADIA
--- NOTE | 2019-07-27 21:55 | CT Report ---
Reason: RT FRACTURE OF HUMERUS Procedure Date: 07/27/2019 Accession Number: [id number] / [id number] Procedure: CT - UPPER EXTREMITY WO - RT CPT Code: Final Report FULL RESULT: EXAM: RIGHT SHOULDER CT WITHOUT CONTRAST EXAM DATE: 07/27/2019 03:27 PM. CLINICAL HISTORY: RT FRACTURE OF HUMERUS. COMPARISON: HUMERUS RT 07/11/2019 6:23 PM. TECHNIQUE: Thin-section axial images were acquired of the shoulder without contrast. Post-processing: Oblique coronal and sagittal reformats. Other: None. In accordance with CT protocol optimization, one or more of the following dose reduction techniques were utilized for this exam: automated exposure control, adjustment of mA and/or KV based on patient size, or use of iterative reconstructive technique. FINDINGS: Bones: The bones are osteopenic. Subacute comminuted fracture of the greater tuberosity of the humerus involving the rotator cuff footplate. The fracture is minimally displaced and mildly impacted. The fracture is isolated to the greater tuberosity with no intra-articular extension. No significant callus formation identified, no medullary continuity. Acromioclavicular joint: Mild degenerative changes. Glenohumeral Joint: Mild degenerative changes. No large effusion. No calcified loose bodies. Musculature: Normal age related fatty atrophy. Other: Question mild subacromial subdeltoid bursitis. The visualized lungs are unremarkable. No lymphadenopathy in the visualized axilla. The aortic arch is calcified. IMPRESSION: 1. Subacute comminuted fracture of the greater tuberosity of the humerus involving the rotator cuff footplate. The fracture is isolated to the greater tuberosity with no intra-articular extension. No significant callus formation, no medullary continuity. 2. Question mild subacromial subdeltoid bursitis. RADIA
== END 2019-07-27 15:11 | disposition home or self-care (01) ==
LOC: DI 15:10
PROVIDERS: ATTEND Nurse Practitioner
DX: M43.06 Spondylolysis, lumbar region (principal); M51.36 Other intervertebral disc degeneration, lumbar region; M47.817 Spondylosis without myelopathy or radiculopathy, lumbosacral region; M47.816 Spondylosis without myelopathy or radiculopathy, lumbar region; M48.061 Spinal stenosis, lumbar region without neurogenic claudication; I71.4 Abdominal aortic aneurysm, without rupture; N20.0 Calculus of kidney; S22.070A Wedge compression fracture of T9-T10 vertebra, initial encounter for closed fracture; S42.251A Displaced fracture of greater tuberosity of right humerus, initial encounter for closed fracture; M19.011 Primary osteoarthritis, right shoulder
CPT/HCPCS: 72128; 72131

== ENCOUNTER 2019-08-25 07:47 | Outpatient (CLI) | payer MEDICARE, OTHER ==
[2019-08-25 08:17] LABS: ALBUMIN 4.1 g/dL (3.2-5.5); ALBUMIN/GLOBULIN RATIO 1.6 (1.0-2.2); BILIRUBIN,TOTAL 0.8 mg/dL (0.2-1.0); CALCIUM 9.4 mg/dL (8.5-10.3); TOTAL PROTEIN 6.6 g/dL (6.7-8.2)
[2019-08-25 09:36] LABS: BASOPHILS # (AUTO) 0.1 10^3/uL (0.0-0.1); BASOPHILS % (AUTO) 0.8 %; EOSINOPHILS # (AUTO) 0.2 10^3/uL (0.0-0.7); EOSINOPHILS % (AUTO) 2.5 %; LYMPHOCYTES # (AUTO) 1.7 10^3/uL (1.5-3.5); LYMPHOCYTES % (AUTO) 19.4 %; MEAN CORPUSCULAR HEMOGLOBIN 32.2 pg (27.0-31.0); MEAN CORPUSCULAR HGB CONC 31.8 g/dL (32.0-36.0); MEAN CORPUSCULAR VOLUME 101.2 fL (81.0-99.0); MONOCYTES # (AUTO) 0.8 10^3/uL (0.0-1.0); MONOCYTES % (AUTO) 8.7 %; NEUTROPHILS # (AUTO) 5.9 10^3/uL (1.5-6.6); PLT - PLATELET COUNT 278 10^3/uL (130-450); RED BLOOD COUNT 4.04 10^6/uL (4.20-5.40); RED CELL DISTRIBUTION WIDTH 14.6 % (12.0-15.0); WHITE BLOOD COUNT 8.7 x10^3/uL (4.8-10.8)
== END 2019-08-25 07:48 | disposition home or self-care (01) ==
LOC: LAB 07:47
PROVIDERS: ATTEND Nurse Practitioner
DX: Z01.818 Encounter for other preprocedural examination (principal); Z79.899 Other long term (current) drug therapy; R60.9 Edema, unspecified
CPT/HCPCS: 36415; 80053; 85025; 93005

== ENCOUNTER 2019-09-14 15:11 | Emergency (ER) | payer MEDICARE, OTHER ==
[2019-09-14] MEDS ORDERED: ONDANSETRON 4 MG/2 ML VIAL IVP STA (15:48)
[2019-09-14 16:26] LABS: BASOPHILS # (AUTO) 0.1 10^3/uL (0.0-0.1); BASOPHILS % (AUTO) 0.6 %; EOSINOPHILS % (AUTO) 0.2 %; HGB - HEMOGLOBIN 11.7 g/dL (12.0-16.0); LYMPHOCYTES # (AUTO) 1.2 10^3/uL (1.5-3.5); LYMPHOCYTES % (AUTO) 8.9 %; MEAN CORPUSCULAR HEMOGLOBIN 33.7 pg (27.0-31.0); MEAN CORPUSCULAR HGB CONC 32.8 g/dL (32.0-36.0); MEAN CORPUSCULAR VOLUME 102.9 fL (81.0-99.0); MEAN PLATELET VOLUME 9.1 fL (7.9-10.8); MONOCYTES # (AUTO) 0.5 10^3/uL (0.0-1.0); NEUTROPHILS # (AUTO) 11.4 10^3/uL (1.5-6.6); NEUTROPHILS % (AUTO) 85.8 %; PLT - PLATELET COUNT 303 10^3/uL (130-450); RED BLOOD COUNT 3.47 10^6/uL (4.20-5.40); RED CELL DISTRIBUTION WIDTH 13.6 % (12.0-15.0); WHITE BLOOD COUNT 13.3 x10^3/uL (4.8-10.8)
[2019-09-14 16:36] LABS: INR 1.2 (0.8-1.2)
[2019-09-14 16:43] LABS: ALBUMIN/GLOBULIN RATIO 1.7 (1.0-2.2); BILIRUBIN,TOTAL 0.8 mg/dL (0.2-1.0); CALCIUM 9.6 mg/dL (8.5-10.3); CREATININE 0.7 mg/dL (0.4-1.0); PARTIAL THROMBOPLASTIN TIME 26.6 secs (24.9-33.3); TOTAL PROTEIN 6.4 g/dL (6.7-8.2)
[2019-09-14 18:39] VITALS: BP 105/88
--- NOTE | 2019-09-14 19:33 | ED Physician Documentation ---
History of Present Illness - Stated complaint Stated Complaint: SOA, VOMITING BLOOD - Chief complaint Chief Complaint: General - History obtained from History obtained from: Patient, Family - History of Present Illness Timing: How many weeks ago (2) - Additonal information Additional information: Patient comes emergency department complaining of insomnia, hot flashes, chronic back and right shoulder pain, and over the last few days, intermittent vomiting. The patient denies any fevers or chills. She states it feels like when she went through menopause previously. She denies any vaginal discharge or bleeding. No abdominal pain. No dysuria, diarrhea, or constipation. No chest pain or shortness of breath. Patient states that she has started to feel anxious at night, because she knows she is going to have trouble sleeping and it keeps her awake. She states she was on a medication to help her sleep, but that this stopped working. She then tried taking Flexeril, but this did not work either. After this, she tried taking Vicodin and Tylenol for a couple of nights, and that seemed to help, but a few nights ago, this stopped working as well. Patient states she is following up with Ortho about her shoulder, which she states needs surgery. She has been stressed out about this. She states that when she vomited today, she noticed that it was brown and looked a little "red-tinged". She also states she had a stool that looked "black". She has a very distant history about 6 to 8 years ago, at least, of having a gastric ulcer. She has not had any upper abdominal pain and has not had any other black stools or any other episodes of vomiting.She states she is lost about 10 pounds in the last month because she does not feel like eating due to "just not feeling good". No other complaints at this time. She states she is not currently nauseated. Review of Systems Ten Systems: 10 systems reviewed and negative Constitutional: reports: Other (Hot flashes.) Eyes: reports: Reviewed and negative Ears: reports: Reviewed and negative Nose: reports: Reviewed and negative Throat: reports: Reviewed and negative Cardiac: reports: Reviewed and negative Respiratory: reports: Reviewed and negative GI: reports: Nausea, Vomiting, Hematemesis, Bloody / black stool : reports: Reviewed and negative Skin: reports: Reviewed and negative Musculoskeletal: reports: Reviewed and negative Neurologic: reports: Reviewed and negative Psychiatric: reports: Reviewed and negative Endocrine: reports: Reviewed and negative Immunocompromised: reports: Reviewed and negative PD PAST MEDICAL HISTORY - Past Medical History Cardiovascular: Hypertension, Coronary artery disease, [place] Respiratory: None Neuro: None Endocrine/Autoimmune: None GI: None : None HEENT: Macular degeneration Psych: None Musculoskeletal: None Derm: None - Past Surgical History Past Surgical History: Yes General: Appendectomy Cardiovascular: Coronary stent - Present Medications Home Medications: Ambulatory Orders Medication Instructions Recorded Confirmed Atorvastatin Calcium [Lipitor] 60 mg PO HS 06/16/13 11/20/18 carvediloL [Coreg] 3.125 mg PO BID 06/16/13 11/20/18 Hydrocodone/Acetaminophen [[place] 10 - 325 mg PO 5XD 08/27/15 11/20/18 10-325 Tablet] Ondansetron Odt [Zofran] 4 mg TL Q6H PRN #10 tablet 12/13/17 11/20/18 Albuterol Sulf [Ventolin Hfa 1 - 2 puffs INH Q4HR PRN #1 inhaler 11/20/18 Inhaler] Amlodipine Besylate 1 tab PO DAILY 11/20/18 11/20/18 Cefdinir 300 mg PO BID #20 capsule 11/20/18 Gabapentin 1 tab PO BID PRN 11/20/18 11/20/18 Pantoprazole [Protonix] 1 tab PO DAILY 11/20/18 11/20/18 traZODone [Desyrel] 1 tab PO QPM 11/20/18 11/20/18 Hydrocodone/Acetaminophen [[place] 1 each PO Q6H PRN #20 tablet 07/11/19 5-325 Tablet] Omeprazole 20 mg PO DAILY 60 Days #60 09/14/19 capsule. Ondansetron Odt [Zofran Odt] 4 mg TL Q6H 10 Days #12 tab 09/14/19 - Allergies Allergies/Adverse Reactions: Allergies Allergy/AdvReac Type Severity Reaction Status Date / Time clopidogrel bisulfate * Allergy Severe Rash Verified 07/11/19 17:55 [From Plavix] erythromycin base Allergy Mild Rash Verified 07/11/19 17:55 [Erythromycin Base] Penicillins Allergy Mild Rash Verified 07/11/19 17:55 spironolactone Allergy Mild Rash Verified 07/11/19 17:55 diazepam [From Valium] AdvReac Mild Anxiety Verified 07/11/19 17:55 - Social History Does the pt smoke?: No Smoking Status: Never smoker Does the pt drink ETOH?: Yes Does the pt have substance abuse?: No - Immunizations Immunizations are current?: Yes - POLST Patient has POLST: No PD ED PE NORMAL - Vitals Vital signs reviewed: Yes - General General: Alert and oriented X 3, No acute distress - HEENT HEENT: PERRL - Neck Neck: Supple, no meningeal sign - Cardiac Cardiac: RRR, No murmur - Respiratory Respiratory: Clear bilaterally - Abdomen Abdomen: Soft, Non tender, Non distended - Rectal Rectal: Other (Rectal exam revealed dark brown stool without gross blood. Guaiac testing was mandatorily performed in the lab and stated only "positive". ) - Derm Derm: Warm and dry - Extremities Extremities: No deformity - Neuro Neuro: Alert and oriented X 3 - Psych Psych: Normal mood, Normal affect Results - Vitals Vitals: Vital Signs - 24 hr 09/14/19 09/14/19 09/14/19 15:20 16:12 18:38 Temperature 36 C L Heart Rate 92 98 106 H Respiratory 18 16 16 Rate Blood Pressure 138/85 H 151/79 H 105/88 H O2 Saturation 99 99 97 Oxygen O2 Source Room air - Labs Labs: Microbiology 09/14/19 17:07 Occult Blood - Final Stool Laboratory Tests 09/14/19 09/14/19 09/14/19 15:55 15:55 15:55 WBC 13.3 H RBC 3.47 L Hgb 11.7 L Hct 35.7 L MCV 102.9 H MCH 33.7 H MCHC 32.8 RDW 13.6 Plt Count 303 MPV 9.1 Neut # (Auto) 11.4 H Lymph # (Auto) 1.2 L [place] # (Auto) 0.5 Eos # (Auto) 0.0 Baso # (Auto) 0.1 Absolute Nucleated RBC 0.00 Nucleated RBC % 0.0 PT INR APTT Sodium 142 Potassium 4.2 Chloride 108 Carbon Dioxide 24 Anion Gap 10.0 BUN 42 H Creatinine 0.7 Estimated GFR (MDRD) 81 L Glucose 122 H Calcium 9.6 Total Bilirubin 0.8 AST 20 ALT 25 Alkaline Phosphatase 67 Total Protein 6.4 L Albumin 4.0 Globulin 2.4 Albumin/Globulin Ratio 1.7 Lipase 43 TSH Blood Type O POSITIVE Antibody Screen NEGATIVE 09/14/19 09/14/19 15:55 15:55 WBC RBC Hgb Hct MCV MCH MCHC RDW Plt Count MPV Neut # (Auto) Lymph # (Auto) [place] # (Auto) Eos # (Auto) Baso # (Auto) Absolute Nucleated RBC Nucleated RBC % PT 14.0 H INR 1.2 APTT 26.6 Sodium Potassium Chloride Carbon Dioxide Anion Gap BUN Creatinine Estimated GFR (MDRD) Glucose Calcium Total Bilirubin AST ALT Alkaline Phosphatase Total Protein Albumin Globulin Albumin/Globulin Ratio Lipase TSH 0.90 Blood Type Antibody Screen PD MEDICAL DECISION MAKING - ED course Complexity details: reviewed old records, reviewed results, re-evaluated patient, considered differential, d/w patient, d/w family ED course: Patient was worked up in the emergency department laboratory studies and given a liter 0.9 normal saline. Her stool did not appear melanotic grossly, and it was unclear whether the patient's guaiac test was trace positive or whether was strongly positive, given that it is required that it be done in the lab and I could not view it personally. However, the patient's hemoglobin was 11.7 which was only minimally decreased. As such, I did not feel that it was likely, also given the fact the patient has not had any abdominal pain, that the patient had had major bleeding or recurrence of an ulcer. However, I did discuss with her that she does need to make an appointment with her primary care physician to have her upper GI bleeding evaluated. In the meantime, I have placed her on a PPI at home. The rest of the patient's labs were unremarkable forAbnormalities. She does have a TSH pending, which was not able to be completed during the time she was in the emergency department, due to lab analyzer malfunction. I have advised her to have her primary care physician follow-up on these results. We have discussed that I am not sure why she is having hot flashes at her age. She will need to talk to her primary care physician about further work-up of this issue. However, no emergent condition has been identified tonight. We have discussed home management symptoms as well as the usual indications for return. Departure - Departure Disposition: 01 Home, Self Care Clinical Impression: Hot flashes Vomiting Qualifiers: Vomiting type: bilious vomiting Nausea presence: with nausea Qualified Code(s): R11.14 - Bilious vomiting Anemia Qualifiers: Anemia type: unspecified type Qualified Code(s): D64.9 - Anemia, unspecified Condition: Fair Instructions: Anemia, ED Nausea Vomiting Prescriptions: Omeprazole 20 mg PO DAILY 60 Days #60 capsule. Ondansetron Odt [Zofran Odt] 4 mg TL Q6H 10 Days #12 tab Comments: Your labs, overall, looked fairly good. Your stool was found to be somewhat positive for blood, though it was not a dark black color.Your red blood cell levels were slightly decreased, but there is no evidence that you have lost a major amount of blood. However, given the history of ulcer, however distant, it is important for you to follow up with your primary care physician to discuss whether it is time to have another endoscopy. Please take the stomach medication, as directed, until you follow-up with your doctor. The thyroid test is still pending and will not be back tonight. Please have your doctor follow- up with the hospital on these test results. It is not clear why you are having the sensation of hot flashes. Your doctor can do further endocrine testing to see if there is any derangement in your hormones which could be causing you to feel this way.You may try the different sleeping medication to see if this helps should get better rest at night. Once again, it is very important that you call to make an appointment with your doctor to be seen within the next week to discuss these problems further. No emergent condition has been identified tonight. Discharge Date/Time: 09/14/19 19:03
== END 2019-09-14 19:03 | disposition home or self-care (01) ==
LOC: ED 15:11
DX: R23.2 Flushing (principal); R11.14 Bilious vomiting; D64.9 Anemia, unspecified; I10 Essential (primary) hypertension
CPT/HCPCS: 36415; 80053; 82272; 83690; 84443; 85025; 85610; 85730; 86850; 86900; 86901; 93005; 99283; 99284

== ENCOUNTER 2019-09-20 09:12 | Outpatient (CLI) | payer MEDICARE, OTHER ==
--- NOTE | 2019-09-20 16:09 | XRAY Report ---
Reason: displaced fracture of greater tuberosity Procedure Date: 09/20/2019 Accession Number: [id number] / [id number] Procedure: XR - Shoulder 3 View RT CPT Code: Final Report FULL RESULT: EXAM: RIGHT SHOULDER RADIOGRAPHY 3 VIEWS EXAM DATE: 09/20/2019. CLINICAL HISTORY: Follow-up displaced fracture of greater tuberosity. COMPARISON: CT done 07/27/2019. TECHNIQUE: AP, Grashey and scapular Y views. FINDINGS: Bones: The comminuted depressed fracture of the greater tuberosity is unchanged in position. Increased density consistent with callus present at the fracture site. No new abnormality. Joints: No dislocation. Soft tissues: Atherosclerosis of the axillary artery. Visualized right lung is clear. IMPRESSION: Comminuted displaced and depressed fracture of the greater tuberosity is unchanged in position from the CT done 07/27/2019. Callus. In the interval. RADIA
== END 2019-09-20 09:13 | disposition home or self-care (01) ==
LOC: DI 09:12
PROVIDERS: ATTEND Family Medicine
DX: S42.251A Displaced fracture of greater tuberosity of right humerus, initial encounter for closed fracture (principal)

== ENCOUNTER 2019-09-22 09:22 | Outpatient (CLI) | payer MEDICARE, OTHER | END 2019-09-22 09:23 | disposition critical access hospital (66) | LOC: EMS 09:22 | PROVIDERS: ATTEND Surgery | DX: M54.5 Low back pain (principal); W18.30XA Fall on same level, unspecified, initial encounter; Y92.008 Other place in unspecified non-institutional (private) residence as the place of occurrence of the external cause | CPT/HCPCS: A0425; A0429 ==

== ENCOUNTER 2019-09-22 09:28 | Emergency (ER) | payer MEDICARE, OTHER ==
--- NOTE | 2019-09-22 09:52 | ED Physician Documentation ---
PD HPI ALTERED MENTAL STATUS - Stated complaint Stated Complaint: GLF - Chief complaint Chief Complaint: General - History obtained from History obtained from: Patient PD PAST MEDICAL HISTORY - Past Medical History Cardiovascular: Hypertension, Coronary artery disease, [place] Respiratory: None Neuro: None Endocrine/Autoimmune: None GI: None : None HEENT: Macular degeneration Psych: None Musculoskeletal: None Derm: None - Past Surgical History Past Surgical History: Yes General: Appendectomy Cardiovascular: Coronary stent - Present Medications Home Medications: Ambulatory Orders Medication Instructions Recorded Confirmed Atorvastatin Calcium [Lipitor] 60 mg PO HS 06/16/13 11/20/18 carvediloL [Coreg] 3.125 mg PO BID 06/16/13 11/20/18 Hydrocodone/Acetaminophen [[place] 10 - 325 mg PO 5XD 08/27/15 11/20/18 10-325 Tablet] Ondansetron Odt [Zofran] 4 mg TL Q6H PRN #10 tablet 12/13/17 11/20/18 Albuterol Sulf [Ventolin Hfa 1 - 2 puffs INH Q4HR PRN #1 inhaler 11/20/18 Inhaler] Amlodipine Besylate 1 tab PO DAILY 11/20/18 11/20/18 Cefdinir 300 mg PO BID #20 capsule 11/20/18 Gabapentin 1 tab PO BID PRN 11/20/18 11/20/18 Pantoprazole [Protonix] 1 tab PO DAILY 11/20/18 11/20/18 traZODone [Desyrel] 1 tab PO QPM 11/20/18 11/20/18 Hydrocodone/Acetaminophen [[place] 1 each PO Q6H PRN #20 tablet 07/11/19 5-325 Tablet] Omeprazole 20 mg PO DAILY 60 Days #60 09/14/19 capsule. Ondansetron Odt [Zofran Odt] 4 mg TL Q6H 10 Days #12 tab 09/14/19 - Allergies Allergies/Adverse Reactions: Allergies Allergy/AdvReac Type Severity Reaction Status Date / Time clopidogrel bisulfate * Allergy Severe Rash Verified 09/22/19 10:02 [From Plavix] erythromycin base Allergy Mild Rash Verified 09/22/19 10:02 [Erythromycin Base] Penicillins Allergy Mild Rash Verified 09/22/19 10:02 spironolactone Allergy Mild Rash Verified 07/11/19 17:55 diazepam [From Valium] AdvReac Mild Anxiety Verified 09/22/19 10:02 - Social History Does the pt smoke?: No Smoking Status: Never smoker Does the pt drink ETOH?: Yes Does the pt have substance abuse?: No - Immunizations Immunizations are current?: Yes - POLST Patient has POLST: No Results - Vitals Vitals: Vital Signs - 24 hr 09/22/19 09:30 Temperature 36.4 C L Heart Rate 72 Respiratory 20 Rate Blood Pressure 183/75 H O2 Saturation 100 Oxygen O2 Source Room air
[2019-09-22] MEDS ORDERED: IPRATROPIUM/ALBUTEROL 3 ML NEB INH STA (11:13)
--- NOTE | 2019-09-22 11:13 | ED Physician Documentation ---
PD HPI SYNCOPE - Stated complaint Stated Complaint: GLF - Chief complaint Chief Complaint: General - History obtained from History obtained from: Patient - History of Present Illness Witnessed: Unwitnessed Timing - onset: How many weeks ago (has been feeling generally weaker and off balance, with some muscle twitching for couple of weeks. has had some cough and wheezing this week. Feeling difficult to walk on her own. Had controlled slump/fall this morning without injury. But could not get herself back up and had to "crawl to the phone to call for help".) Duration: Seconds Preceding symptoms: No: Headache, Vision changes, Dyspnea Associated symptoms: No: Incontinant of urine Injury occurred: Fell. No: Head injury, Neck injury Similar symptoms before: No diagnosis Recently seen: Clinic (seen by PCP for these symptoms and had gabapentin dose decreased in half and Trazodone dose decreased in half. She says that was 3 days ago, so on lower dose of those meds for 2 days without much improvement. Also having cough and wheezing the past few days.) Review of Systems Constitutional: denies: Fever, Chills, Myalgias Nose: reports: Congestion. denies: Rhinorrhea / runny nose Throat: reports: Sore throat Respiratory: reports: Cough GI: denies: Abdominal Pain, Nausea, Vomiting, Diarrhea : reports: Frequency. denies: Dysuria, Hematuria, Discharge Skin: denies: Abrasion (s), Laceration (s) Neurologic: reports: Generalized weakness. denies: Focal weakness, Numbness, Difficulty speaking, Altered mental status, Headache, Head injury PD PAST MEDICAL HISTORY - Past Medical History Cardiovascular: Hypertension, Coronary artery disease, [place] Respiratory: None Neuro: None Endocrine/Autoimmune: None GI: None : None HEENT: Macular degeneration Psych: None Musculoskeletal: None Derm: None - Past Surgical History Past Surgical History: Yes General: Appendectomy Cardiovascular: Coronary stent - Present Medications Home Medications: Ambulatory Orders Medication Instructions Recorded Confirmed Atorvastatin Calcium [Lipitor] 60 mg PO HS 06/16/13 11/20/18 carvediloL [Coreg] 3.125 mg PO BID 06/16/13 11/20/18 Hydrocodone/Acetaminophen [[place] 10 - 325 mg PO 5XD 08/27/15 11/20/18 10-325 Tablet] Ondansetron Odt [Zofran] 4 mg TL Q6H PRN #10 tablet 05/21/18 04/28/19 Albuterol Sulf [Ventolin Hfa 1 - 2 puffs INH Q4HR PRN #1 inhaler 11/20/18 Inhaler] Amlodipine Besylate 1 tab PO DAILY 11/20/18 11/20/18 Cefdinir 300 mg PO BID #20 capsule 11/20/18 Gabapentin 1 tab PO BID PRN 11/20/18 11/20/18 Pantoprazole [Protonix] 1 tab PO DAILY 11/20/18 11/20/18 traZODone [Desyrel] 1 tab PO QPM 11/20/18 11/20/18 Hydrocodone/Acetaminophen [[place] 1 each PO Q6H PRN #20 tablet 07/11/19 5-325 Tablet] Omeprazole 20 mg PO DAILY 60 Days #60 09/14/19 capsule. Ondansetron Odt [Zofran Odt] 4 mg TL Q6H 10 Days #12 tab 09/14/19 Albuterol Sulfate [Albuterol 2 puffs IH QID #1 hfa.aer.ad 09/22/19 Sulfate Hfa] Ferrous Sulfate 325 mg PO DAILY #30 tablet 09/22/19 dexAMETHasone [Decadron] 4 mg PO DAILY #5 tablet 09/22/19 - Allergies Allergies/Adverse Reactions: Allergies Allergy/AdvReac Type Severity Reaction Status Date / Time clopidogrel bisulfate * Allergy Severe Rash Verified 09/22/19 10:02 [From Plavix] erythromycin base Allergy Mild Rash Verified 09/22/19 10:02 [Erythromycin Base] Penicillins Allergy Mild Rash Verified 09/22/19 10:02 spironolactone Allergy Mild Rash Verified 07/11/19 17:55 diazepam [From Valium] AdvReac Mild Anxiety Verified 09/22/19 10:02 - Living Situation Living Situation: reports: Alone Living Arrangement: reports: At home (family in area ) - Social History Does the pt smoke?: No Smoking Status: Never smoker Does the pt drink ETOH?: Yes Does the pt have substance abuse?: No - Immunizations Immunizations are current?: Yes - POLST Patient has POLST: No PD ED PE NORMAL - Vitals Vital signs reviewed: Yes - General General: Alert and oriented X 3, No acute distress, Well developed/nourished - HEENT HEENT: Atraumatic, Ears normal, Moist mucous membranes, Pharynx benign - Neck Neck: Supple, no meningeal sign, No adenopathy - Cardiac Cardiac: RRR, No murmur - Respiratory Respiratory: No: Clear bilaterally (no coarse sounds. Has exp wheezing noted diffusely. ) - Abdomen Abdomen: Soft, Non tender - Back Back: No CVA TTP, No spinal TTP - Derm Derm: Normal color, Warm and dry - Extremities Extremities: No tenderness to palpate, No edema, No calf tenderness / cord - Neuro Neuro: Alert and oriented X 3, No motor deficit, Normal speech Results - Vitals Vitals: Vital Signs - 24 hr 09/22/19 09/22/19 09/22/19 09:30 12:32 12:36 Temperature 36.4 C L Heart Rate 72 80 80 Respiratory 20 20 20 Rate Blood Pressure 183/75 H 148/71 H O2 Saturation 100 100 Oxygen O2 Source Room air - EKG (time done) 11:22 Rate: Rate (enter#) (70s), Other (a lot of artifact baseline, so not interpretable. ) Ischemia: Normal ST segments - Labs Labs: Laboratory Tests 09/22/19 09/22/19 09/22/19 11:30 11:30 11:30 WBC 9.2 RBC 3.01 L Hgb 9.9 L Hct 31.1 L MCV 103.3 H MCH 32.9 H MCHC 31.8 L RDW 14.1 Plt Count 345 MPV 8.7 Neut # (Auto) 7.0 H Lymph # (Auto) 1.1 L [place] # (Auto) 0.8 Eos # (Auto) 0.1 Baso # (Auto) 0.1 Absolute Nucleated RBC 0.00 Nucleated RBC % 0.0 Sodium 144 Potassium 3.8 Chloride 111 Carbon Dioxide 26 Anion Gap 7.0 BUN 17 Creatinine 0.9 Estimated GFR (MDRD) 60 L Glucose 125 H Calcium 9.2 Phosphorus 2.6 Magnesium 2.0 Total Bilirubin 0.7 AST 17 ALT 16 Alkaline Phosphatase 60 Troponin I High Sens 10.2 B-Natriuretic Peptide Total Protein 6.2 L Albumin 3.7 Globulin 2.5 Albumin/Globulin Ratio 1.5 Lipase 33 Vitamin B12 TSH 09/22/19 09/22/19 11:30 11:30 WBC RBC Hgb Hct MCV MCH MCHC RDW Plt Count MPV Neut # (Auto) Lymph # (Auto) [place] # (Auto) Eos # (Auto) Baso # (Auto) Absolute Nucleated RBC Nucleated RBC % Sodium Potassium Chloride Carbon Dioxide Anion Gap BUN Creatinine Estimated GFR (MDRD) Glucose Calcium Phosphorus Magnesium Total Bilirubin AST ALT Alkaline Phosphatase Troponin I High Sens B-Natriuretic Peptide 290 H Total Protein Albumin Globulin Albumin/Globulin Ratio Lipase Vitamin B12 345 TSH 0.91 - Rads (name of study) chest xray Radiology: See rad report PD MEDICAL DECISION MAKING - ED course Complexity details: re-evaluated patient (feels improved breathing with neb. Less weakness feeling than coming here. Able to walk in ER, with some assistance for balance, but did better with using a walker. Symptoms may be med related and would need to be on the lower dose of the gabapentin a bit longer to see if symptoms improve. Also seems like bronchitis.), considered differential (generalized weakness for a week, gradual onset, and has had cough/wheezing as well, with dyspnea. No chest pain. Had slumping fall due to weakness this morning. ), d/w patient, d/w family (daughter concerned about her weakness and trouble standing. However, she is able to stand and walk around slowly with walker. ) Departure - Departure Disposition: 01 Home, Self Care Clinical Impression: Generalized weakness, Near syncope Anemia Qualifiers: Anemia type: iron deficiency Iron deficiency anemia type: unspecified iron deficiency Qualified Code(s): D50.9 - Iron deficiency anemia, unspecified Dyspnea Qualifiers: Dyspnea type: dyspnea on exertion Qualified Code(s): R06.09 - Other forms of dyspnea Condition: Stable Record reviewed to determine appropriate education?: Yes Instructions: ED Wheezing, ED Weakness [facility] Follow-Up: Madiha Carter ARNP, EQUIPMENT MANAGER-C [Primary Care Provider] - Prescriptions: Albuterol Sulfate [Albuterol Sulfate Hfa] 2 puffs IH QID #1 hfa.aer.ad dexAMETHasone [Decadron] 4 mg PO DAILY #5 tablet Ferrous Sulfate 325 mg PO DAILY #30 tablet Comments: Stay well-hydrated. For now continue at the decreased doses of medicine you had been directed (the lower trazodone and gabapentin). You are anemic which may have been from some of the intestinal bleeding with your recent visit. Add an iron supplement daily. Continue with the omeprazole. Use an albuterol inhaler 2 puffs 4 times a day for the next 7 to 10 days to help with wheeziness and improve breathing. Decadron steroid anti-inflammatory daily for 5 more days to help with bronchial inflammation. The allergies with the wheezing may be also given you some of the weakness and we will see if that helps improve things as well. Follow-up with your primary care next week for recheck, call today for an appointment. Your basic electrolytes and kidney function are okay otherwise. I would give a few more days at the lower dose of the gabapentin to see if some of the twitching improves. Discharge Date/Time: 09/22/19 13:27
[2019-09-22 11:41] LABS: BASOPHILS # (AUTO) 0.1 10^3/uL (0.0-0.1); BASOPHILS % (AUTO) 0.5 %; EOSINOPHILS # (AUTO) 0.1 10^3/uL (0.0-0.7); EOSINOPHILS % (AUTO) 1.5 %; HGB - HEMOGLOBIN 9.9 g/dL (12.0-16.0); LYMPHOCYTES # (AUTO) 1.1 10^3/uL (1.5-3.5); LYMPHOCYTES % (AUTO) 12.2 %; MEAN CORPUSCULAR HEMOGLOBIN 32.9 pg (27.0-31.0); MEAN CORPUSCULAR HGB CONC 31.8 g/dL (32.0-36.0); MEAN CORPUSCULAR VOLUME 103.3 fL (81.0-99.0); MEAN PLATELET VOLUME 8.7 fL (7.9-10.8); MONOCYTES # (AUTO) 0.8 10^3/uL (0.0-1.0); MONOCYTES % (AUTO) 8.2 %; NEUTROPHILS % (AUTO) 76.7 %; PLT - PLATELET COUNT 345 10^3/uL (130-450); RED BLOOD COUNT 3.01 10^6/uL (4.20-5.40); RED CELL DISTRIBUTION WIDTH 14.1 % (12.0-15.0); WHITE BLOOD COUNT 9.2 x10^3/uL (4.8-10.8)
[2019-09-22 11:58] LABS: ALBUMIN 3.7 g/dL (3.2-5.5); ALBUMIN/GLOBULIN RATIO 1.5 (1.0-2.2); BILIRUBIN,TOTAL 0.7 mg/dL (0.2-1.0); CALCIUM 9.2 mg/dL (8.5-10.3); CREATININE 0.9 mg/dL (0.4-1.0); PHOSPHORUS 2.6 mg/dL (2.5-4.6); TOTAL PROTEIN 6.2 g/dL (6.7-8.2)
[2019-09-22 12:13] LABS: THYROID STIMULATING HORMONE 0.91 uIU/mL (0.34-5.60)
[2019-09-22 12:32] VITALS: BP 148/71
== END 2019-09-22 13:27 | disposition home or self-care (01) ==
LOC: ED 09:28
DX: R55 Syncope and collapse (principal); R53.1 Weakness; D50.9 Iron deficiency anemia, unspecified; R06.09 Other forms of dyspnea; I10 Essential (primary) hypertension
CPT/HCPCS: 36415; 80053; 82607; 83690; 83735; 83880; 84100; 84443; 84484; 85025; 93005; 94640; 99284

== ENCOUNTER 2019-09-25 15:55 | Outpatient (CLI) | payer MEDICARE, OTHER | END 2019-09-25 15:56 | disposition short-term general hospital (02) | LOC: EMS 15:55 | PROVIDERS: ATTEND Surgery | DX: R00.1 Bradycardia, unspecified (principal) | CPT/HCPCS: A0425; A0427 ==

== ENCOUNTER 2019-12-19 08:00 | Outpatient (CLI) | payer MEDICARE, OTHER ==
--- NOTE | 2019-12-20 14:57 | XRAY Report ---
Reason: RIGHT HUMERUS GREATER TUBEROSITY FRACTURE Procedure Date: 12/19/2019 Accession Number: [id number] / [id number] Procedure: WCP - Shoulder 3 View RT CPT Code: Final Report FULL RESULT: EXAM: RIGHT SHOULDER RADIOGRAPHY EXAM DATE: 12/19/2019 02:49 PM. CLINICAL HISTORY: RIGHT HUMERUS GREATER TUBEROSITY FRACTURE. COMPARISON: SHOULDER 3 VIEW RT 09/20/2019 9:22 AM UPPER EXTREMITY RIGHT W/O 07/27/2019 3:23 PM. TECHNIQUE: 3 views. FINDINGS: Bones: Healing comminuted greater tuberosity fracture. Interval callus development. Fracture line is now quite subtle. Joints: The glenohumeral and acromioclavicular joints are normal. Soft tissues: Atherosclerotic arterial calcifications. Potential calcific tendinosis. IMPRESSION: Healing right humeral greater tuberosity fracture. RADIA
== END 2019-12-19 23:59 | disposition home or self-care (01) ==
LOC: DI.WCP 08:00
PROVIDERS: ATTEND Nurse Practitioner
DX: S42.251D Displaced fracture of greater tuberosity of right humerus, subsequent encounter for fracture with routine healing (principal); R19.7 Diarrhea, unspecified; I10 Essential (primary) hypertension; D64.9 Anemia, unspecified; R00.1 Bradycardia, unspecified; K21.9 Gastro-esophageal reflux disease without esophagitis; I25.10 Atherosclerotic heart disease of native coronary artery without angina pectoris; E78.2 Mixed hyperlipidemia
CPT/HCPCS: 36415; 80053; 82728; 83540; 84466; 85025; 85045

== ENCOUNTER 2019-12-19 14:18 | Outpatient (CLI) | payer MEDICARE, OTHER ==
[2019-12-19 18:05] LABS: ABSOLUTE RETICS # AUTO 0.048 10^6/uL (0.020-0.110); BASOPHILS # (AUTO) 0.1 10^3/uL (0.0-0.1); BASOPHILS % (AUTO) 0.8 %; EOSINOPHILS # (AUTO) 0.1 10^3/uL (0.0-0.7); EOSINOPHILS % (AUTO) 1.2 %; HGB - HEMOGLOBIN 11.7 g/dL (12.0-16.0); LYMPHOCYTES # (AUTO) 1.4 10^3/uL (1.5-3.5); LYMPHOCYTES % (AUTO) 13.6 %; MEAN CORPUSCULAR HEMOGLOBIN 31.2 pg (27.0-31.0); MEAN CORPUSCULAR HGB CONC 30.6 g/dL (32.0-36.0); MEAN CORPUSCULAR VOLUME 101.9 fL (81.0-99.0); MEAN PLATELET VOLUME 9.7 fL (7.9-10.8); MONOCYTES # (AUTO) 0.8 10^3/uL (0.0-1.0); MONOCYTES % (AUTO) 7.3 %; NEUTROPHILS # (AUTO) 7.9 10^3/uL (1.5-6.6); NEUTROPHILS % (AUTO) 76.6 %; PLT - PLATELET COUNT 283 10^3/uL (130-450); RED BLOOD COUNT 3.75 10^6/uL (4.20-5.40); RED CELL DISTRIBUTION WIDTH 13.4 % (12.0-15.0); WHITE BLOOD COUNT 10.3 x10^3/uL (4.8-10.8)
[2019-12-19 18:27] LABS: ALBUMIN 4.3 g/dL (3.2-5.5); ALBUMIN/GLOBULIN RATIO 1.9 (1.0-2.2); BILIRUBIN,TOTAL 0.6 mg/dL (0.2-1.0); CALCIUM 9.4 mg/dL (8.5-10.3); CREATININE 1.2 mg/dL (0.4-1.0); TOTAL PROTEIN 6.6 g/dL (6.7-8.2)
== END 2019-12-19 23:59 | disposition home or self-care (01) ==
LOC: LAB.WCP 14:18
PROVIDERS: ATTEND Nurse Practitioner
DX: R19.7 Diarrhea, unspecified (principal); I10 Essential (primary) hypertension; D64.9 Anemia, unspecified; R00.1 Bradycardia, unspecified; K21.9 Gastro-esophageal reflux disease without esophagitis; I25.10 Atherosclerotic heart disease of native coronary artery without angina pectoris; E78.2 Mixed hyperlipidemia
CPT/HCPCS: 36415; 80053; 82728; 83540; 84466; 85025; 85045

== ENCOUNTER 2020-03-08 11:58 | Outpatient (CLI) | payer MEDICARE, OTHER ==
[2020-03-08 12:27] LABS: BASOPHILS # (AUTO) 0.1 10^3/uL (0.0-0.1); BASOPHILS % (AUTO) 1.1 %; EOSINOPHILS # (AUTO) 0.2 10^3/uL (0.0-0.7); EOSINOPHILS % (AUTO) 2.1 %; HGB - HEMOGLOBIN 11.3 g/dL (12.0-16.0); LYMPHOCYTES # (AUTO) 1.3 10^3/uL (1.5-3.5); MEAN CORPUSCULAR HEMOGLOBIN 33.4 pg (27.0-31.0); MEAN CORPUSCULAR HGB CONC 31.9 g/dL (32.0-36.0); MEAN CORPUSCULAR VOLUME 104.7 fL (81.0-99.0); MEAN PLATELET VOLUME 8.4 fL (7.9-10.8); MONOCYTES # (AUTO) 0.5 10^3/uL (0.0-1.0); MONOCYTES % (AUTO) 6.2 %; NEUTROPHILS # (AUTO) 5.5 10^3/uL (1.5-6.6); NEUTROPHILS % (AUTO) 73.1 %; PLT - PLATELET COUNT 249 10^3/uL (130-450); RED BLOOD COUNT 3.38 10^6/uL (4.20-5.40); WHITE BLOOD COUNT 7.5 x10^3/uL (4.8-10.8)
[2020-03-08 12:50] LABS: ALBUMIN 4.1 g/dL (3.2-5.5); ALBUMIN/GLOBULIN RATIO 1.8 (1.0-2.2); BILIRUBIN,TOTAL 0.7 mg/dL (0.2-1.0); CALCIUM 9.4 mg/dL (8.5-10.3); CREATININE 1.3 mg/dL (0.4-1.0); TOTAL PROTEIN 6.4 g/dL (6.7-8.2)
== END 2020-03-08 11:59 | disposition home or self-care (01) ==
LOC: LAB 11:58
PROVIDERS: ATTEND Family Medicine
DX: D64.9 Anemia, unspecified (principal); R19.7 Diarrhea, unspecified; K21.9 Gastro-esophageal reflux disease without esophagitis
CPT/HCPCS: 36415; 80053; 81599; 82150; 83516; 83690; 84443; 85025; 86255

== ENCOUNTER 2020-03-09 09:14 | Outpatient (CLI) | payer MEDICARE, OTHER | END 2020-03-09 23:59 | disposition home or self-care (01) | LOC: LAB 09:14 | PROVIDERS: ATTEND Family Medicine | DX: R19.7 Diarrhea, unspecified (principal); D64.9 Anemia, unspecified; K21.9 Gastro-esophageal reflux disease without esophagitis | CPT/HCPCS: 81599; 83993; 87045; 87046; 87177; 87209; 87329; 87427; 87493 ==

== ENCOUNTER 2020-03-19 07:09 | Emergency (ER) | payer MEDICARE, OTHER ==
[2020-03-19] MEDS ORDERED: SODIUM CHLORIDE 0.9% 1,000 ML IV STA ×2 (07:48→08:53)
--- NOTE | 2020-03-19 07:59 | ED Physician Documentation ---
PD HPI DYSPNEA - Stated complaint Stated Complaint: SOA, DIZZY - Chief complaint Chief Complaint: Resp - History obtained from History obtained from: Patient - History of Present Illness Timing - onset: How many weeks ago (2) Timing - onset during: Light activity Timing - duration: Weeks (2) Timing - details: Gradual onset, Still present Inciting event(s): Other (has developed diarrhea) Improved by: Rest Worsened by: Exertion Associated symptoms: No: Fever, Cough, Hemoptysis, Wheezing, Chest pain / discomfort, Palpitations, Diaphoresis, Bilateral edema, Unilateral edema, Anxiety Similar symptoms before: Diagnosis (CHF) Recently seen: Not recently seen - Additional information Additional information: 79-year-old female with a history of COPD and CHF has developed weakness and she reports that over the past 2 weeks she has had diarrhea and her diarrhea was so bad yesterday that she was unable to get into see her doctor in follow-up. This morning she is somewhat better and able to get in to be seen. She states that yesterday she had been taking Lomotil and eventually then took some Imodium on top of that and her diarrhea was finally controlled. She reports taking as many as 20 Imodium tablets in a day without resolution of her diarrhea. Review of Systems Constitutional: reports: Fatigue, Other (Weakness). denies: Fever, Chills, Myalgias Eyes: denies: Decreased vision Ears: denies: Ear pain Nose: reports: Rhinorrhea / runny nose, Congestion Throat: denies: Sore throat Cardiac: denies: Chest pain / pressure, Palpitations, Pedal edema, Calf pain Respiratory: reports: Dyspnea. denies: Cough, Hemoptysis, Wheezing GI: reports: Diarrhea. denies: Abdominal Pain, Nausea, Vomiting : denies: Dysuria, Frequency Skin: denies: Rash Musculoskeletal: denies: Neck pain, Back pain, Extremity pain Neurologic: reports: Generalized weakness. denies: Focal weakness, Numbness PD PAST MEDICAL HISTORY - Past Medical History Cardiovascular: Hypertension, Coronary artery disease, [place] Respiratory: None Neuro: None Endocrine/Autoimmune: None GI: None REALTIME REPORTER: None : None HEENT: Macular degeneration Psych: None Musculoskeletal: None Derm: None - Past Surgical History Past Surgical History: Yes General: Appendectomy Cardiovascular: Coronary stent - Present Medications Home Medications: Ambulatory Orders Medication Instructions Recorded Confirmed Atorvastatin Calcium [Lipitor] 60 mg PO HS 06/16/13 11/20/18 carvediloL [Coreg] 3.125 mg PO BID 06/16/13 11/20/18 Hydrocodone/Acetaminophen [[place] 10 - 325 mg PO 5XD 08/27/15 11/20/18 10-325 Tablet] Ondansetron Odt [Zofran] 4 mg TL Q6H PRN #10 tablet 12/13/17 11/20/18 Albuterol Sulf [Ventolin Hfa 1 - 2 puffs INH Q4HR PRN #1 inhaler 11/20/18 Inhaler] Amlodipine Besylate 1 tab PO DAILY 11/20/18 11/20/18 Cefdinir 300 mg PO BID #20 capsule 11/20/18 Gabapentin 1 tab PO BID PRN 11/20/18 11/20/18 Pantoprazole [Protonix] 1 tab PO DAILY 11/20/18 11/20/18 traZODone [Desyrel] 1 tab PO QPM 11/20/18 11/20/18 Hydrocodone/Acetaminophen [[place] 1 each PO Q6H PRN #20 tablet 07/11/19 5-325 Tablet] Omeprazole 20 mg PO DAILY 60 Days #60 09/14/19 capsule. Ondansetron Odt [Zofran Odt] 4 mg TL Q6H 10 Days #12 tab 09/14/19 Albuterol Sulfate [Albuterol 2 puffs IH QID #1 hfa.aer.ad 09/22/19 Sulfate Hfa] Ferrous Sulfate 325 mg PO DAILY #30 tablet 09/22/19 dexAMETHasone [Decadron] 4 mg PO DAILY #5 tablet 09/22/19 Ciprofloxacin HCl [Cipro] 500 mg PO BID #14 tablet 03/19/20 - Allergies Allergies/Adverse Reactions: Allergies Allergy/AdvReac Type Severity Reaction Status Date / Time clopidogrel bisulfate * Allergy Severe Rash Verified 03/19/20 07:19 [From Plavix] erythromycin base Allergy Mild Rash Verified 03/19/20 07:19 [Erythromycin Base] Penicillins Allergy Mild Rash Verified 03/19/20 07:19 spironolactone Allergy Mild Rash Verified 03/19/20 07:19 diazepam [From Valium] AdvReac Mild Anxiety Verified 03/19/20 07:19 - Social History Does the pt smoke?: No Smoking Status: Never smoker Does the pt drink ETOH?: Yes Does the pt have substance abuse?: No - Immunizations Immunizations are current?: Yes - POLST Patient has POLST: No PD ED PE NORMAL - Vitals Vital signs reviewed: Yes (Normal) - General General: Alert and oriented X 3, No acute distress, Well developed/nourished - HEENT HEENT: Atraumatic, PERRL, EOMI - Neck Neck: Supple, no meningeal sign, No bony TTP - Cardiac Cardiac: RRR, No murmur - Respiratory Respiratory: No respiratory distress, Clear bilaterally - Abdomen Abdomen: Normal bowel sounds, Soft, Non tender, Non distended, No organomegaly - Back Back: No CVA TTP, No spinal TTP - Derm Derm: Normal color, Warm and dry, No rash - Extremities Extremities: No deformity, No edema, No calf tenderness / cord - Neuro Neuro: Alert and oriented X 3, train inspector 2-12 intact, No motor deficit, Normal speech Eye Opening: Spontaneous Motor: Obeys Commands Verbal: Oriented GCS Score: 15 - Psych Psych: Normal mood, Normal affect Results - Vitals Vitals: Vital Signs - 24 hr 03/19/20 03/19/20 07:19 09:27 Temperature 36.6 C Heart Rate 75 50 L Respiratory 18 14 Rate Blood Pressure 125/79 115/85 H O2 Saturation 99 100 Oxygen O2 Source Room air - Labs Labs: Laboratory Tests 03/19/20 03/19/20 03/19/20 08:00 08:00 08:00 WBC 6.3 RBC 3.70 L Hgb 12.3 Hct 38.4 MCV 103.8 H MCH 33.2 H MCHC 32.0 RDW 13.9 Plt Count 260 MPV 9.1 Neut # (Auto) 3.7 Lymph # (Auto) 1.7 [place] # (Auto) 0.6 Eos # (Auto) 0.2 Baso # (Auto) 0.1 Absolute Nucleated RBC 0.00 Nucleated RBC % 0.0 Sodium 140 Potassium 3.6 Chloride 107 Carbon Dioxide 22 Anion Gap 11.0 BUN 28 H Creatinine 1.3 H Estimated GFR (MDRD) 40 L Glucose 96 Calcium 9.8 Magnesium 1.9 Total Bilirubin 0.5 AST 20 ALT 25 Alkaline Phosphatase 76 B-Natriuretic Peptide 70 Total Protein 6.3 L Albumin 4.0 Globulin 2.3 Albumin/Globulin Ratio 1.7 Lipase 53 H Urine Color Urine Clarity Urine pH Ur Specific Tok Urine Protein Urine Glucose (UA) Urine Ketones Urine Occult Blood Urine Nitrite Urine Bilirubin Urine Urobilinogen Ur Leukocyte Esterase Urine RBC Urine WBC Ur Squamous Epith Cells Urine Bacteria Ur Microscopic Review Urine Culture Comments 03/19/20 09:17 WBC RBC Hgb Hct MCV MCH MCHC RDW Plt Count MPV Neut # (Auto) Lymph # (Auto) [place] # (Auto) Eos # (Auto) Baso # (Auto) Absolute Nucleated RBC Nucleated RBC % Sodium Potassium Chloride Carbon Dioxide Anion Gap BUN Creatinine Estimated GFR (MDRD) Glucose Calcium Magnesium Total Bilirubin AST ALT Alkaline Phosphatase B-Natriuretic Peptide Total Protein Albumin Globulin Albumin/Globulin Ratio Lipase Urine Color YELLOW Urine Clarity SL. CLOUDY Urine pH 5.5 Ur Specific Tok 1.020 Urine Protein NEGATIVE Urine Glucose (UA) NEGATIVE Urine Ketones NEGATIVE Urine Occult Blood NEGATIVE Urine Nitrite POSITIVE H Urine Bilirubin NEGATIVE Urine Urobilinogen 0.2 (NORMAL) Ur Leukocyte Esterase MODERATE H Urine RBC 0-5 Urine WBC 11-25 H Ur Squamous Epith Cells FEW Squamous Urine Bacteria Moderate H Ur Microscopic Review INDICATED Urine Culture Comments INDICATED Procedures - IVC sono (time) 07:40 Bedside IVC sono: IVC measures (cm), IVC collapsed c insp (cm) (complete), Dehydration (est 2+ liter deficit) PD MEDICAL DECISION MAKING - ED course Complexity details: reviewed old records, reviewed results, re-evaluated patient, considered differential, d/w patient ED course: 79-year-old female with a history of reactive airway disease and congestive heart failure has developed some odd shortness of breath. She does state that she is short of breath if she tries to exert herself and she feels particularly weak. She has had diarrhea for 2 weeks and she is found to be significantly dehydrated on interrogation of the inferior vena cava. Her lungs sound clear. She has no peripheral edema. I suspect the patient is significantly dehydrated and she is administered intravenous saline. She has physical improvement and is able to produce a urine specimen that appears infected. She is without symptoms. She has had diarrhea for the past year and stool sample from last week does not demonstrate common pathogen. She is elevated on the Calprotectin in the stool consistent with inflammatory bowel. She is administered IV rocephin and we will place her on cipro for the infection in the urine with hopes of empiric t reatment of colitis as well. Departure - Departure Disposition: Home, Self Care Clinical Impression: Dehydration Urinary tract infection Qualifiers: Urinary tract infection type: acute cystitis Hematuria presence: without perla turia Qualified Code(s): N30.00 - Acute cystitis without hematuria Condition: Stable Instructions: ED Dehydration, ED UTI Cystitis Female Follow-Up: Madiha Carter ARNP, ALMOND PAN FINISHER-C [Primary Care Provider] - Prescriptions: Ciprofloxacin HCl [Cipro] 500 mg PO BID #14 tablet
[2020-03-19 08:20] LABS: BASOPHILS # (AUTO) 0.1 10^3/uL (0.0-0.1); BASOPHILS % (AUTO) 1.1 %; EOSINOPHILS # (AUTO) 0.2 10^3/uL (0.0-0.7); EOSINOPHILS % (AUTO) 3.2 %; HGB - HEMOGLOBIN 12.3 g/dL (12.0-16.0); LYMPHOCYTES # (AUTO) 1.7 10^3/uL (1.5-3.5); LYMPHOCYTES % (AUTO) 27.8 %; MEAN CORPUSCULAR HEMOGLOBIN 33.2 pg (27.0-31.0); MEAN CORPUSCULAR VOLUME 103.8 fL (81.0-99.0); MEAN PLATELET VOLUME 9.1 fL (7.9-10.8); MONOCYTES # (AUTO) 0.6 10^3/uL (0.0-1.0); MONOCYTES % (AUTO) 8.9 %; NEUTROPHILS # (AUTO) 3.7 10^3/uL (1.5-6.6); NEUTROPHILS % (AUTO) 58.7 %; PLT - PLATELET COUNT 260 10^3/uL (130-450); RED CELL DISTRIBUTION WIDTH 13.9 % (12.0-15.0); WHITE BLOOD COUNT 6.3 x10^3/uL (4.8-10.8)
[2020-03-19 08:34] LABS: ALBUMIN/GLOBULIN RATIO 1.7 (1.0-2.2); BILIRUBIN,TOTAL 0.5 mg/dL (0.2-1.0); CALCIUM 9.8 mg/dL (8.5-10.3); CREATININE 1.3 mg/dL (0.4-1.0); MAGNESIUM 1.9 mg/dL (1.7-2.8); TOTAL PROTEIN 6.3 g/dL (6.7-8.2)
[2020-03-19 09:32] LABS: BILIRUBIN,URINE NEGATIVE (NEGATIVE); GLUCOSE, URINE (UA) NEGATIVE (NEGATIVE); KETONES,URINE (UA) NEGATIVE (NEGATIVE); LEUKOCYTE ESTERASE, URINE MODERATE (NEGATIVE); NITRITE,URINE POSITIVE (NEGATIVE); OCCULT BLOOD,URINE NEGATIVE (NEGATIVE); PH,URINE 5.5 PH (5.0-7.5); PROTEIN,URINE NEGATIVE (NEGATIVE); UROBILINOGEN,URINE 0.2 (NORMAL) E.U./dL (NORMAL)
[2020-03-19 09:34] LABS: CLARITY,URINE SL. CLOUDY (CLEAR)
[2020-03-19] MEDS ORDERED: cefTRIAXone 1 GM in SODIUM CHLORIDE 0.9% MINIBAG 100 ML IV STA (09:43)
[2020-03-19 10:01] LABS: RBC,URINE 0-5 /HPF (0-5)
[2020-03-19 10:02] LABS: BACTERIA,URINE Moderate /HPF (None Seen); SQUAMOUS EPITHELIAL CELL,UR FEW Squamous (<= Few)
[2020-03-19 11:01] VITALS: BP 116/70
== END 2020-03-19 11:03 | disposition home or self-care (01) ==
LOC: ED 07:09
DX: E86.0 Dehydration (principal); N30.00 Acute cystitis without hematuria
CPT/HCPCS: 36415; 80053; 81001; 81003; 83690; 83735; 83880; 85025; 87077; 87086; 87181; 96361; 96365; 99284

== ENCOUNTER 2020-04-09 11:17 | Outpatient (CLI) | payer MEDICARE, OTHER ==
[2020-04-09 11:33] LABS: BASOPHILS # (AUTO) 0.1 10^3/uL (0.0-0.1); BASOPHILS % (AUTO) 0.6 %; EOSINOPHILS # (AUTO) 0.3 10^3/uL (0.0-0.7); EOSINOPHILS % (AUTO) 3.2 %; HGB - HEMOGLOBIN 11.7 g/dL (12.0-16.0); LYMPHOCYTES # (AUTO) 1.9 10^3/uL (1.5-3.5); LYMPHOCYTES % (AUTO) 24.4 %; MEAN CORPUSCULAR HEMOGLOBIN 33.2 pg (27.0-31.0); MEAN CORPUSCULAR HGB CONC 31.9 g/dL (32.0-36.0); MEAN CORPUSCULAR VOLUME 104.3 fL (81.0-99.0); MEAN PLATELET VOLUME 8.3 fL (7.9-10.8); MONOCYTES # (AUTO) 0.7 10^3/uL (0.0-1.0); MONOCYTES % (AUTO) 8.6 %; NEUTROPHILS % (AUTO) 62.8 %; PLT - PLATELET COUNT 236 10^3/uL (130-450); RED BLOOD COUNT 3.52 10^6/uL (4.20-5.40); RED CELL DISTRIBUTION WIDTH 13.2 % (12.0-15.0); WHITE BLOOD COUNT 7.9 x10^3/uL (4.8-10.8)
[2020-04-09 11:47] LABS: ALBUMIN 4.2 g/dL (3.2-5.5); ALBUMIN/GLOBULIN RATIO 1.8 (1.0-2.2); BILIRUBIN,TOTAL 0.6 mg/dL (0.2-1.0); CALCIUM 9.5 mg/dL (8.5-10.3); CREATININE 1.3 mg/dL (0.4-1.0); TOTAL PROTEIN 6.5 g/dL (6.7-8.2)
--- NOTE | 2020-04-09 15:05 | XRAY Report ---
PROCEDURE: Thoracic Spine 3 View INDICATIONS: LAB DRAW,SCOLIOSUS,DJD,LUMBOSACRAL SPINE TECHNIQUE: 3 views of the thoracic spine were acquired. COMPARISON: CT the thoracic spine 07/27/2019 FINDINGS: Bones: There is a moderate anterior wedge compression fracture of T10 with vertebroplasty cement inte rnally. There is mild superior endplate scalloping of T6 without significant anterior column height l oss.. No suspicious bony lesions. 12 pairs of ribs are noted, and appear intact where visualized. Soft tissues: No paravertebral stripe thickening. Wire less pacemaker device present projecting to the left of the spine. IMPRESSION: 1. There is a new superior endplate scalloping deformity of T6 without significant anterior column he ight loss. 2. Interval vertebroplasty of the T10 compression fracture with slight progression of height loss com pared to the prior CT scan. Reviewed by: Coty Barrios MD on 04/09/2020 3:04 PM PDT Approved by: Coty Barrios MD on 04/09/2020 3:04 PM PDT Station ID: [id number]
--- NOTE | 2020-04-09 15:09 | XRAY Report ---
PROCEDURE: Lumbar Spine 2 View INDICATIONS: LAB DRAW,SCOLIOSUS,DJD,LUMBOSACRAL SPINE TECHNIQUE: 2 views of the lumbar spine were acquired. COMPARISON: CT lumbar spine 07/27/2019 FINDINGS: Bones: 5 [id number] vertebrae are present. Stable grade 1 anterolisthesis L4 on 5. Bilateral L5 pars defects.. No vertebral body compression fractures. No suspicious bony lesions. Soft tissues: Overlying bowel gas pattern is normal. No suspicious soft tissue calcifications. Hea vy abdominal aortic and iliac calcification. IMPRESSION: 1. No lumbar compression fractures. 2. Stable grade 1 L4-5 anterolisthesis. 3. L5 pars defects without anterolisthesis. 4. Atherosclerosis Reviewed by: Coty Barrios MD on 04/09/2020 3:08 PM PDT Approved by: Coty Barrios MD on 04/09/2020 3:08 PM PDT Station ID: [id number]
== END 2020-04-09 11:18 | disposition home or self-care (01) ==
LOC: LAB 11:17 → DI 11:18
PROVIDERS: ATTEND Nurse Practitioner
DX: M43.16 Spondylolisthesis, lumbar region (principal); I70.0 Atherosclerosis of aorta; R93.7 Abnormal findings on diagnostic imaging of other parts of musculoskeletal system; M35.3 Polymyalgia rheumatica; R79.9 Abnormal finding of blood chemistry, unspecified; D64.9 Anemia, unspecified; I25.10 Atherosclerotic heart disease of native coronary artery without angina pectoris; I10 Essential (primary) hypertension
CPT/HCPCS: 36415; 72072; 72100; 80053; 83880; 85025

== ENCOUNTER 2020-04-22 09:55 | Outpatient (CLI) | payer MEDICARE, OTHER ==
--- NOTE | 2020-04-22 11:40 | DEXA Report ---
PROCEDURE: Dexa Spine and/or Hip INDICATIONS: WEDGE COMPRESSION FX THORACIC, OSTEOPOROSIS TECHNIQUE: Dual energy x-ray absorptiometry (DXA) was performed on a [employer] System. Regions measur ed are the AP Spine, femoral neck, and if needed forearm. COMPARISON: 01/24/18 FINDINGS: Lumbar Spine: Bone Mineral Density 1.004 g/cm/cm,T score -1.5, compared to -1.0 on prior exam. Left Hip: Bone Mineral Density 0.767 g/cm/cm,T score -1.9, compared to -1.7 on prior exam. Left Femoral Neck: Bone Mineral Density 0.784 g/cm/cm, T score -1.8, compared to -1.7 on prior exam. (T score greater or equal to -1.0: NORMAL) (T score from -1.1 to -2.4: OSTEOPENIA) (T score less than or equal to -2.5 to: OSTEOPOROSIS) Impression: Moderate osteopenia in the spine, hip and femoral neck, progressive. Patients with diagnosis of osteoporosis or osteopenia should have regular bone mineral density assess ment. For those eligible for Medicare, routine testing is allowed once every 2 years. Testing frequ ency can be increased for patients who have rapidly progressing disease or for those who are receivin g medical therapy to restore bone mass. Reviewed by: Shira Greene MD on 04/22/2020 11:38 AM PDT Approved by: Shira Greene MD on 04/22/2020 11:38 AM PDT Station ID: [id number]
== END 2020-04-22 09:56 | disposition home or self-care (01) ==
LOC: DI 09:55
PROVIDERS: ATTEND Nurse Practitioner
DX: M85.89 Other specified disorders of bone density and structure, multiple sites (principal); S22.000A Wedge compression fracture of unspecified thoracic vertebra, initial encounter for closed fracture; S42.251A Displaced fracture of greater tuberosity of right humerus, initial encounter for closed fracture
CPT/HCPCS: 77080

== ENCOUNTER 2020-06-13 14:45 | Outpatient (CLI) | payer MEDICARE, OTHER ==
--- NOTE | 2020-06-13 17:25 | MRI Report ---
PROCEDURE: Thoracic Spine W/O INDICATIONS: CLOSED WEDGE FX OF T6, BACK PAIN TECHNIQUE: Noncontrast sagittal T1 spine echo and T2 fast spin echo, sagittal STIR, axial T1 and T2 fast spin ec ho through the thoracic spine. COMPARISON: Plain films of the thoracic spine dated 04.09.28. FINDINGS: Image quality: Excellent. Alignment and Curvature: There is moderate diffuse thoracic kyphosis. Bone Marrow: Marrow is of normal overall signal. No acute vertebral body compression fractures. Mi ld chronic wedging of T6. Moderate chronic wedging of T10 which demonstrates bony cement material wit hin it. Mild reactive signal within the end plates adjacent to the mid/lower thoracic endplates. Spinal Cord: Visualized spinal cord is normal in size and signal. Paraspinous Soft Tissues: No paravertebral masses. Disc space levels: Multilevel disc desiccation. Mild retropulsion at the upper T10 level, causing mil d canal stenosis. IMPRESSION: 1. Status post vertebral augmentation at T10 which demonstrates moderate chronic wedging. 2. Mild chronic wedging of T6. 3. No acute fracture. 4. Multilevel degenerative disc disease. No neural impingement. Reviewed by: Mena Giron MD on 06/13/2020 4:24 PM AKST Approved by: Mena Giron MD on 06/13/2020 4:24 PM AKST Station ID: [id number]
--- NOTE | 2020-06-13 17:32 | MRI Report ---
PROCEDURE: Lumbar Spine W/O INDICATIONS: CLOSED WEDGE FX OF T6, BACK PAIN TECHNIQUE: Noncontrast sagittal T1 spin echo and T2 fast echo, sagittal STIR, coronal T2, axial T1 and T2 fast s pin echo through the lumbar spine. COMPARISON: Plain films of the lumbar spine dated 04.09.20. FINDINGS: Image quality: Excellent. Alignment and Curvature: 5 lumbar type vertebral bodies are present by plain film. Mild grade 1 anter olisthesis of L3 on L4 and L4 on L5. Bone Marrow: Marrow is of normal overall signal. No acute vertebral body compression fractures. Mi ld reactive signal within the endplates adjacent to the T12-L1, L1-L2, L2-L3, L3-L4, and L4-L5 interv ertebral discs. Spinal Cord: Conus medullaris terminates at the lower L2 level. Visualized cord demonstrates normal signal and size. Paraspinous Soft Tissues: No paravertebral masses. T12-L1: Normal in appearance. L1-L2: Mild disc height loss and desiccation. Mild diffuse disc bulge. Mild facet and ligament fla vum hypertrophy. Mild canal stenosis. Mild bilateral foraminal stenosis. L2-L3: Mild disc desiccation and diffuse disc bulge. Mild facet and ligament flavum hypertrophy. M ild epidural lipomatosis. Mild canal stenosis. Mild bilateral foraminal stenosis. L3-L4: Severe disc height loss and desiccation. Mild diffuse disc bulge. Moderate facet hypertrophy . Mild ligament flavum hypertrophy and epidural lipomatosis. Mild canal stenosis. Moderate right and mild left foraminal stenosis. L4-L5: Moderate disc height loss and desiccation. Mild diffuse disc bulge with small superimposed bro ad-based right posterolateral protrusion. Mild facet and ligament flavum hypertrophy. Mild epidural l ipomatosis. Mild canal stenosis. Mild left and moderate right foraminal stenosis. L5-S1: Mild disc height loss and desiccation. Mild diffuse disc bulge. Moderate bilateral facet hyp ertrophy. Mild canal stenosis. Mild bilateral foraminal stenosis. IMPRESSION: 1. Micromultilevel lumbar 2. Mild multilevel canal stenoses. 3. Multilevel foraminal stenoses, worst at L3-L4 and L4-L5 where there are moderate foraminal stenose s. Reviewed by: Mena Giron MD on 06/13/2020 4:31 PM AKST Approved by: Mena Giron MD on 06/13/2020 4:31 PM AKST Station ID: [id number]
== END 2020-06-13 14:46 | disposition home or self-care (01) ==
LOC: DI 14:45
PROVIDERS: ATTEND Orthopaedic Surgery
DX: M43.15 Spondylolisthesis, thoracolumbar region (principal); S22.050A Wedge compression fracture of T5-T6 vertebra, initial encounter for closed fracture; M51.34 Other intervertebral disc degeneration, thoracic region; M51.26 Other intervertebral disc displacement, lumbar region; M48.061 Spinal stenosis, lumbar region without neurogenic claudication
CPT/HCPCS: 72146; 72148

== ENCOUNTER 2020-09-25 11:54 | Outpatient (CLI) | payer MEDICARE, OTHER ==
--- NOTE | 2020-09-25 16:26 | XRAY Report ---
PROCEDURE: Hip w/Pelvis 2-3V RT INDICATIONS: RIGHT HIP PAIN TECHNIQUE: AP pelvis with lateral view(s) of the right hip(s). COMPARISON: None. FINDINGS: Bones: No fractures or dislocations. Pelvic ring appears intact. No suspicious bony lesions. Soft tissues: The visualized bowel gas pattern is normal. No suspicious soft tissue calcifications. IMPRESSION: There is a slight degree of the hip joint space narrowing present bilaterally, considere d mild osteoarthritis, and no trauma is seen. Reviewed by: Gregorio Reyes MD on 09/25/2020 4:25 PM PST Approved by: Gregorio Reyes MD on 09/25/2020 4:25 PM PST Station ID: [id number]
== END 2020-09-25 11:55 | disposition home or self-care (01) ==
LOC: DI 11:54
PROVIDERS: ATTEND Pain Medicine Pain Medicine
DX: M25.551 Pain in right hip (principal)

== ENCOUNTER 2020-12-05 07:11 | Outpatient (CLI) | payer MEDICARE, OTHER ==
--- NOTE | 2020-12-05 14:55 | Ultrasound Report ---
PROCEDURE: Abdomen Limited INDICATIONS: SCAR OF SKIN TECHNIQUE: Real-time focused scanning was performed of the abdomen, with image documentation. COMPARISON: None FINDINGS: Sonographic images of the right lower quadrant demonstrate an approximately 11 x 3 x 3 mm focus of heterogeneous echogenicity immediately below the skin surface. IMPRESSION: Focus of heterogeneous echogenicity at the level of concern. This could represent a small postoperati ve hematoma or potentially postoperative seroma. Other etiologies such as a lipid poor lipoma cannot be excluded. Reviewed by: Shira Greene MD on 12/05/2020 2:54 PM PDT Approved by: Shira Greene MD on 12/05/2020 2:54 PM PDT Station ID: [id number]
== END 2020-12-05 07:12 | disposition home or self-care (01) ==
LOC: DI 07:11
PROVIDERS: ATTEND Internal Medicine
DX: R93.5 Abnormal findings on diagnostic imaging of other abdominal regions, including retroperitoneum (principal)

== ENCOUNTER 2021-03-10 16:21 | Emergency (ER) | payer MEDICARE, OTHER ==
[2021-03-10] MEDS ORDERED: SODIUM CHLORIDE 0.9% 1,000 ML IV STA ×3 (16:37→19:08)
--- NOTE | 2021-03-10 17:03 | XRAY Report ---
PROCEDURE: Chest 1 View X-Ray INDICATIONS: Chest Pain TECHNIQUE: One view of the chest was acquired. COMPARISON: 04/09/2020, 07/18/2019 FINDINGS: Surgical changes and devices: None. Lungs and pleura: No pleural effusions or pneumothorax. Lungs are clear. Mediastinum: Mediastinal contours appear normal. Heart size is mildly enlarged. Bones and chest wall: No suspicious bony lesions. Overlying soft tissues appear unremarkable. IMPRESSION: No acute cardiopulmonary pathology. Reviewed by: Gerard Alas MD on 03/10/2021 5:01 PM PDT Approved by: Gerard Alas MD on 03/10/2021 5:01 PM PDT Station ID: [id number]
[2021-03-10 17:05] LABS: BASOPHILS # (AUTO) 0.1 10^3/uL (0.0-0.1); BASOPHILS % (AUTO) 0.8 %; EOSINOPHILS # (AUTO) 0.2 10^3/uL (0.0-0.7); EOSINOPHILS % (AUTO) 1.5 %; HCT - HEMATOCRIT 40.5 % (37.0-47.0); LYMPHOCYTES # (AUTO) 1.8 10^3/uL (1.5-3.5); LYMPHOCYTES % (AUTO) 18.6 %; MEAN CORPUSCULAR HEMOGLOBIN 33.7 pg (27.0-31.0); MEAN CORPUSCULAR HGB CONC 32.1 g/dL (32.0-36.0); MEAN CORPUSCULAR VOLUME 104.9 fL (81.0-99.0); MONOCYTES # (AUTO) 0.8 10^3/uL (0.0-1.0); NEUTROPHILS # (AUTO) 6.9 10^3/uL (1.5-6.6); NEUTROPHILS % (AUTO) 70.1 %; PLT - PLATELET COUNT 308 10^3/uL (130-450); RED BLOOD COUNT 3.86 10^6/uL (4.20-5.40); WHITE BLOOD COUNT 9.8 x10^3/uL (4.8-10.8)
[2021-03-10 17:26] LABS: ALBUMIN 4.3 g/dL (3.2-5.5); ALBUMIN/GLOBULIN RATIO 1.6 (1.0-2.2); BILIRUBIN,TOTAL 0.8 mg/dL (0.2-1.0); CALCIUM 10.2 mg/dL (8.5-10.3); CREATININE 2.2 mg/dL (0.4-1.0); POTASSIUM 5.3 mmol/L (3.5-5.0)
--- NOTE | 2021-03-10 17:32 | ED Physician Documentation ---
History of Present Illness - Stated complaint Stated Complaint: LIGHTHEADED - Chief complaint Chief Complaint: General - History obtained from History obtained from: Patient, Family - History of Present Illness Timing: Today Pain level max: 0 Pain level now: 0 - Additonal information Additional information: Patient is an 80-year-old female who is brought into the emergency department today for near syncope. She states she has felt lightheaded and dizzy especially when standing up quickly or bending over today. She states she has not been eating and drinking well lately. Feels like she has a UTI. No chest pain. No shortness of breath. No palpitations. Worse with bending or standing up quickly, better with rest. Currently asymptomatic. She states she does have pain and burning with urination. No fevers. No chills. Review of Systems Constitutional: denies: Fever, Chills Throat: denies: Sore throat Cardiac: denies: Chest pain / pressure, Palpitations Respiratory: denies: Cough GI: denies: Abdominal Pain, Abdominal Swelling, Nausea, Vomiting, Diarrhea Skin: denies: Rash Musculoskeletal: reports: Neck pain (had some neck pain earlier today, none now). 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 : None HEENT: Macular degeneration Psych: None Musculoskeletal: None Derm: None - Past Surgical History Past Surgical History: Yes General: Appendectomy Cardiovascular: Coronary stent - Present Medications Home Medications: Ambulatory Orders Medication Instructions Recorded Confirmed Atorvastatin Calcium [Lipitor] 60 mg PO HS 06/16/13 11/20/18 carvediloL [Coreg] 3.125 mg PO BID 06/16/13 11/20/18 Hydrocodone/Acetaminophen [Ramsey 10 - 325 mg PO 5XD 08/27/15 11/20/18 10-325 Tablet] Ondansetron Odt [Zofran] 4 mg TL Q6H PRN #10 tablet 12/13/17 11/20/18 Albuterol Sulf [Ventolin Hfa 1 - 2 puffs INH Q4HR PRN #1 inhaler 11/20/18 Inhaler] Amlodipine Besylate 1 tab PO DAILY 11/20/18 11/20/18 Cefdinir 300 mg PO BID #20 capsule 11/20/18 Gabapentin 1 tab PO BID PRN 11/20/18 11/20/18 Pantoprazole [Protonix] 1 tab PO DAILY 11/20/18 11/20/18 traZODone [Desyrel] 1 tab PO QPM 11/20/18 11/20/18 Hydrocodone/Acetaminophen [Ramsey 1 each PO Q6H PRN #20 tablet 07/11/19 5-325 Tablet] Omeprazole 20 mg PO DAILY 60 Days #60 09/14/19 capsule. Ondansetron Odt [Zofran Odt] 4 mg TL Q6H 10 Days #12 tab 09/14/19 Albuterol Sulfate [Albuterol 2 puffs IH QID #1 hfa.aer.ad 09/22/19 Sulfate Hfa] Ferrous Sulfate 325 mg PO DAILY #30 tablet 09/22/19 dexAMETHasone [Decadron] 4 mg PO DAILY #5 tablet 09/22/19 Ciprofloxacin HCl [Cipro] 500 mg PO BID #14 tablet 03/19/20 Nitrofurantoin [Macrobid] 100 mg PO BID #10 cap 03/10/21 - Allergies Allergies/Adverse Reactions: Allergies Allergy/AdvReac Type Severity Reaction Status Date / Time clopidogrel bisulfate * Allergy Severe Rash Verified 03/10/21 16:33 [From Plavix] erythromycin base Allergy Mild Rash Verified 03/10/21 16:33 [Erythromycin Base] Penicillins Allergy Mild Rash Verified 03/10/21 16:33 spironolactone Allergy Mild Rash Verified 03/10/21 16:33 diazepam [From Valium] AdvReac Mild Anxiety Verified 03/10/21 16:33 - Social History Does the pt smoke?: No Smoking Status: Never smoker Does the pt drink ETOH?: Yes Does the pt have substance abuse?: No - Immunizations Immunizations are current?: Yes - POLST Patient has POLST: No PD ED PE NORMAL - Vitals Vital signs reviewed: Yes - General General: Alert and oriented X 3, No acute distress, Well developed/nourished - HEENT HEENT: PERRL, Moist mucous membranes - Neck Neck: Supple, no meningeal sign - Cardiac Cardiac: RRR, Strong equal pulses - Respiratory Respiratory: No respiratory distress, Clear bilaterally - Abdomen Abdomen: Soft, Non tender, Non distended - Back Back: No CVA TTP, No spinal TTP - Derm Derm: Warm and dry - Extremities Extremities: No edema, No calf tenderness / cord - Neuro Neuro: Alert and oriented X 3, recruiting manager 2-12 intact, No motor deficit, No sensory deficit, Normal speech Eye Opening: Spontaneous Motor: Obeys Commands Verbal: Oriented GCS Score: 15 - Psych Psych: Normal mood, Normal affect Results - Vitals Vitals: Vital Signs - 24 hr 03/10/21 03/10/21 03/10/21 16:26 16:52 17:06 Temperature 35.7 C L Heart Rate 75 74 72 Respiratory 18 21 20 Rate Blood Pressure 80/45 L 74/56 L 102/69 O2 Saturation 97 97 98 03/10/21 03/10/21 03/10/21 17:30 18:00 18:30 Temperature Heart Rate 57 L 52 L 59 L Respiratory 17 21 16 Rate Blood Pressure 84/41 L 92/38 L 88/55 L O2 Saturation 96 94 94 03/10/21 03/10/21 03/10/21 19:00 19:30 20:00 Temperature Heart Rate 55 L 71 60 Respiratory 16 19 15 Rate Blood Pressure 94/54 L 96/65 110/75 O2 Saturation 94 94 98 03/10/21 20:30 Temperature Heart Rate 76 Respiratory 15 Rate Blood Pressure 112/84 H O2 Saturation 96 Oxygen O2 Source Room air - EKG (time done) 1628 Rate: Rate (enter#) (71) Rhythm: NSR Sawyer: Normal Intervals: Prolonged MT QRS: Normal Ischemia: Normal ST segments - Labs Labs: Laboratory Tests 03/10/21 03/10/21 03/10/21 16:52 16:52 16:52 WBC 9.8 RBC 3.86 L Hgb 13.0 Hct 40.5 MCV 104.9 H MCH 33.7 H MCHC 32.1 RDW 14.0 Plt Count 308 MPV 9.0 Neut # (Auto) 6.9 H Lymph # (Auto) 1.8 Josephine # (Auto) 0.8 Eos # (Auto) 0.2 Baso # (Auto) 0.1 Absolute Nucleated RBC 0.00 Nucleated RBC % 0.0 Sodium 139 Potassium 5.3 H Chloride 105 Carbon Dioxide 22 Anion Gap 12.0 BUN 62 H Creatinine 2.2 H Estimated GFR (MDRD) 21 L Glucose 146 H Calcium 10.2 Total Bilirubin 0.8 AST 21 ALT 31 Alkaline Phosphatase 77 Troponin I High Sens 6.0 Total Protein 7.0 Albumin 4.3 Globulin 2.7 Albumin/Globulin Ratio 1.6 Lipase 46 Urine Color Urine Clarity Urine pH Ur Specific [place] Urine Protein Urine Glucose (UA) Urine Ketones Urine Occult Blood Urine Nitrite Urine Bilirubin Urine Urobilinogen Ur Leukocyte Esterase Urine RBC Urine WBC Urine WBC Clumps Ur Squamous Epith Cells Urine Bacteria Ur Microscopic Review Urine Culture Comments 03/10/21 18:18 WBC RBC Hgb Hct MCV MCH MCHC RDW Plt Count MPV Neut # (Auto) Lymph # (Auto) Josephine # (Auto) Eos # (Auto) Baso # (Auto) Absolute Nucleated RBC Nucleated RBC % Sodium Potassium Chloride Carbon Dioxide Anion Gap BUN Creatinine Estimated GFR (MDRD) Glucose Calcium Total Bilirubin AST ALT Alkaline Phosphatase Troponin I High Sens Total Protein Albumin Globulin Albumin/Globulin Ratio Lipase Urine Color YELLOW Urine Clarity CLOUDY Urine pH 5.0 Ur Specific [place] 1.015 Urine Protein NEGATIVE Urine Glucose (UA) NEGATIVE Urine Ketones NEGATIVE Urine Occult Blood TRACE-INTA Urine Nitrite POSITIVE H Urine Bilirubin NEGATIVE Urine Urobilinogen 0.2 (NORMAL) Ur Leukocyte Esterase MODERATE H Urine RBC 6-10 H Urine WBC >25 H Urine WBC Clumps PRESENT Ur Squamous Epith Cells FEW Squamous Urine Bacteria Many H Ur Microscopic Review INDICATED Urine Culture Comments INDICATED PD MEDICAL DECISION MAKING - ED course Complexity details: reviewed results, re-evaluated patient, considered differential, d/w patient, d/w family ED course: Patient with acute kidney injury, dehydration and UTI. She was hypotensive and orthostatic initially. Given IV fluids and oral antibiotics. Afebrile. No evidence of sepsis. Her blood pressure increased. She states her normal blood pressures around 100-120. She is no longer lightheaded or dizzy when she stands. Ambulating without difficulty. No abdominal or flank pain. No chest pain. No palpitations. We will place on antibiotics for home and have her recheck her labs with her doctor in a few days. Patient and family counseled regarding signs and symptoms for which I believe and urgent re-evaluation would be necessary. Patient with good understanding of and agreement to plan and is comfortable going home at this time This document was made in part using voice recognition software. While efforts are made to proofread this document, sound alike and grammatical errors may occur. Departure - Departure Disposition: 01 Home, Self Care Clinical Impression: Orthostatic hypotension, Acute kidney injury UTI (urinary tract infection) Qualifiers: Urinary tract infection type: acute cystitis Hematuria presence: without hematuria Qualified Code(s): N30.00 - Acute cystitis without hematuria Condition: Good Instructions: ED Hypotension Orthostatic, ED UTI Cystitis Female Follow-Up: your,doctor in 1 week [Other] Prescriptions: Nitrofurantoin [Macrobid] 100 mg PO BID #10 cap Comments: Take all antibiotics until gone. Make sure you are drinking plenty of water at home. You need to follow-up with your doctor in about 3 days to have your kidney function rechecked. Return if you worsen. Discharge Date/Time: 03/10/21 20:48
[2021-03-10 18:27] LABS: BILIRUBIN,URINE NEGATIVE (NEGATIVE); GLUCOSE, URINE (UA) NEGATIVE (NEGATIVE); KETONES,URINE (UA) NEGATIVE (NEGATIVE); LEUKOCYTE ESTERASE, URINE MODERATE (NEGATIVE); NITRITE,URINE POSITIVE (NEGATIVE); OCCULT BLOOD,URINE TRACE-INTA (NEGATIVE); PROTEIN,URINE NEGATIVE (NEGATIVE); UROBILINOGEN,URINE 0.2 (NORMAL) E.U./dL (NORMAL)
[2021-03-10 18:32] LABS: CLARITY,URINE CLOUDY (CLEAR)
[2021-03-10 19:01] LABS: BACTERIA,URINE Many /HPF (None Seen); SQUAMOUS EPITHELIAL CELL,UR FEW Squamous (<= Few); WBC CLUMPS,URINE PRESENT; WBC,URINE >25 /HPF (0-5)
[2021-03-10] MEDS ORDERED: cefTRIAXone 1 GM VIAL IVP STA (19:08)
[2021-03-10 20:33] VITALS: BP 112/84
== END 2021-03-10 20:48 | disposition home or self-care (01) ==
LOC: ED 16:21
DX: I95.1 Orthostatic hypotension (principal); N17.9 Acute kidney failure, unspecified; E86.0 Dehydration; N30.00 Acute cystitis without hematuria; I10 Essential (primary) hypertension
CPT/HCPCS: 36415; 80053; 81001; 81003; 83690; 84484; 85025; 87086; 87181; 93005; 96361; 96374; 99284

== ENCOUNTER 2021-03-12 09:50 | Outpatient (CLI) | payer MEDICARE, OTHER ==
[2021-03-12 10:38] LABS: ALBUMIN 4.1 g/dL (3.2-5.5); ALBUMIN/GLOBULIN RATIO 1.9 (1.0-2.2); BILIRUBIN,TOTAL 0.7 mg/dL (0.2-1.0); CALCIUM 9.6 mg/dL (8.5-10.3); CREATININE 0.9 mg/dL (0.4-1.0); POTASSIUM 4.6 mmol/L (3.5-5.0); TOTAL PROTEIN 6.3 g/dL (6.7-8.2)
== END 2021-03-12 09:51 | disposition home or self-care (01) ==
LOC: LAB 09:50
PROVIDERS: ATTEND Family Medicine
DX: R79.9 Abnormal finding of blood chemistry, unspecified (principal)
CPT/HCPCS: 36415; 80053

== ENCOUNTER 2021-04-22 08:00 | Outpatient (CLI) | payer MEDICARE, OTHER ==
[2021-04-22 18:00] LABS: BASOPHILS # (AUTO) 0.1 10^3/uL (0.0-0.1); BASOPHILS % (AUTO) 1.2 %; EOSINOPHILS # (AUTO) 0.4 10^3/uL (0.0-0.7); EOSINOPHILS % (AUTO) 4.6 %; HCT - HEMATOCRIT 39.2 % (37.0-47.0); HGB - HEMOGLOBIN 12.5 g/dL (12.0-16.0); LYMPHOCYTES # (AUTO) 1.9 10^3/uL (1.5-3.5); LYMPHOCYTES % (AUTO) 22.9 %; MEAN CORPUSCULAR HEMOGLOBIN 33.3 pg (27.0-31.0); MEAN CORPUSCULAR HGB CONC 31.9 g/dL (32.0-36.0); MEAN CORPUSCULAR VOLUME 104.5 fL (81.0-99.0); MEAN PLATELET VOLUME 9.1 fL (7.9-10.8); MONOCYTES # (AUTO) 0.7 10^3/uL (0.0-1.0); MONOCYTES % (AUTO) 8.8 %; NEUTROPHILS # (AUTO) 5.1 10^3/uL (1.5-6.6); NEUTROPHILS % (AUTO) 61.5 %; PLT - PLATELET COUNT 326 10^3/uL (130-450); RED BLOOD COUNT 3.75 10^6/uL (4.20-5.40); RED CELL DISTRIBUTION WIDTH 13.2 % (12.0-15.0); WHITE BLOOD COUNT 8.3 x10^3/uL (4.8-10.8)
[2021-04-22 18:20] LABS: ALBUMIN 4.2 g/dL (3.2-5.5); ALBUMIN/GLOBULIN RATIO 1.6 (1.0-2.2); BILIRUBIN,TOTAL 0.8 mg/dL (0.2-1.0); CALCIUM 9.5 mg/dL (8.5-10.3); CREATININE 0.8 mg/dL (0.4-1.0); POTASSIUM 4.3 mmol/L (3.5-5.0); TOTAL PROTEIN 6.8 g/dL (6.7-8.2)
[2021-04-22 18:28] LABS: THYROID STIMULATING HORMONE 2.53 uIU/mL (0.34-5.60)
[2021-04-26 12:17] LABS: NIL 0.02 IU/mL
== END 2021-04-22 23:59 | disposition home or self-care (01) ==
LOC: LAB.WCP 08:00
PROVIDERS: ATTEND Family Medicine
DX: N95.1 Menopausal and female climacteric states (principal); Z20.822 Contact with and (suspected) exposure to COVID-19
CPT/HCPCS: 36415; 80053; 84443; 85025; 86480; U0004; 83615

== ENCOUNTER 2021-04-28 07:00 | Outpatient (CLI) | payer MEDICARE, OTHER ==
[2021-04-28 14:51] LABS: CREATININE 0.8 mg/dL (0.4-1.0)
== END 2021-04-28 23:59 | disposition home or self-care (01) ==
LOC: LAB 07:00
PROVIDERS: ATTEND Family Medicine
DX: I70.213 Atherosclerosis of native arteries of extremities with intermittent claudication, bilateral legs (principal); N95.1 Menopausal and female climacteric states
CPT/HCPCS: 36415; 82565; 83615

== ENCOUNTER 2021-04-28 14:21 | Outpatient (CLI) | payer MEDICARE, OTHER | END 2021-04-28 14:22 | disposition home or self-care (01) | LOC: LAB 14:21 | PROVIDERS: ATTEND Family Medicine | DX: I70.213 Atherosclerosis of native arteries of extremities with intermittent claudication, bilateral legs (principal) ==

== ENCOUNTER 2021-04-29 12:42 | Outpatient (CLI) | payer MEDICARE, OTHER ==
[2021-04-29] MEDS ORDERED: IOVERSOL 320 100 ML VIAL IVP ONE ×3 (12:57→18:01)
--- NOTE | 2021-04-29 17:14 | CT Report ---
PROCEDURE: ANGIO LOWER EXT W/WO - B/L INDICATIONS: ATHEROSCLEROSIS OF ARTERIES OF EXTREM W/CLAUDICATI CONTRAST: IV CONTRAST: Optiray 320 ml: 125 PO CONTRAST: *NO PO CONTRAST TECHNIQUE: After the administration of intravenous contrast, 2 and 5 mm sections acquired from T12 to the feet, with optional delayed image acquisition from the knees to the feet. 3-dimensional maximum intensity projection (MIP) coronal and sagittal reformats, and/or 3-dimensional volume rendering reformatting w as then performed. For radiation dose reduction, the following was used: automated exposure control , adjustment of mA and/or kV according to patient size. COMPARISON: Correlation is made with abdominal ultrasound examinations dated 08/17/2015 and 12/05/2020 . FINDINGS: Image quality: Excellent. Extravascular tissues: Lung bases are clear. Heart size is normal. Liver and spleen are normal in size and enhancement. Gallbladder appears irregular and is partially decompressed at the time of thi s study Biliary system is non dilated. Pancreas enhances normally. No adrenal nodules. Kidneys ar e normal in size and enhancement, without hydronephrosis. Non opacified bowel loops demonstrate norm al wall thickness and enhancement. No free fluid or air. No retroperitoneal or mesenteric adenopath y. No ventral hernias. Bladder wall thickness is normal. No inguinal hernias or adenopathy. No sandoval spicious bony lesions. No vertebral body compression fractures. Abdominal aorta: Abdominal aorta demonstrates atherosclerotic calcification and irregularity. Within the proximal abdominal aorta, there is a mild aneurysm measuring 3.6 cm transversely and 3.2 cm AP. Right lower extremity: Vascular calcification and irregularity can be seen throughout. There is at l east 50% narrowing seen involving the right proximal common iliac artery. There is at least 50% narro wing can be seen involving the right internal iliac artery and the right external iliac artery. Dense calcification with areas of at least 50% narrowing can be seen involving the right common femoral ar erik. The right profunda femoris artery is within normal limits. Atherosclerotic irregularity is seen involving the right superficial femoral artery, with areas of up to 70% narrowing distally. Generali zed irregularity seen of the right popliteal artery. Irregularity with calcification can be seen invo lving the trifurcation vessels, with poor flow seen at the distal aspect of the right peroneal artery . Left lower extremity: The left lower extremity arterial system demonstrates atherosclerotic calcific ation and irregularity throughout. There is approximately 50% narrowing seen involving the left commo n iliac artery. Areas of at least 50% narrowing can be seen involving the left internal iliac artery and left external iliac artery. Dense calcification can be seen involving the left common femoral art kelton, with areas of 50% narrowing. The left profunda femoris artery is within normal limits. Atherosc lerotic calcification and irregularity can be seen involving the left superficial femoral artery, wit h areas of at least 50% narrowing distally. The left vertebral artery is irregular, with areas of 50% narrowing. There is poor flow seen at the distal aspect of the left peroneal artery. IMPRESSION: Mild abdominal aortic aneurysm seen that measures 2.27 m AP and 3.6 cm transversely. Dense atherosclerotic calcification and irregularity can be seen involving the lower extremity arteri al systems on both sides. Numerous areas of 50% narrowing can be seen, there is a 70% narrowing invol ving the right superficial femoral artery. Two-vessel runoff is seen on each side. Interventional radiology consultation is recommended, if clinically appropriate. Irregularity seen of the gallbladder wall. This has been previously seen by ultrasound. A follow-up u ltrasound is suggested, if clinically appropriate. Reviewed by: Mati Corrigan MD on 04/29/2021 4:13 PM ANDREW Approved by: Mati Corrigan MD on 04/29/2021 4:13 PM ANDREW Station ID: [id number]
== END 2021-04-29 12:43 | disposition home or self-care (01) ==
LOC: DI 12:42
PROVIDERS: ATTEND Family Medicine
DX: I70.213 Atherosclerosis of native arteries of extremities with intermittent claudication, bilateral legs (principal); I71.4 Abdominal aortic aneurysm, without rupture
CPT/HCPCS: 73706; Q9967

== ENCOUNTER 2021-06-03 11:43 | Outpatient (CLI) | payer MEDICARE, OTHER ==
--- NOTE | 2021-06-03 15:07 | XRAY Report ---
PROCEDURE: Knee 4 View LT INDICATIONS: LEFT KNEE PAIN TECHNIQUE: 4 views of the left knee(s) were acquired. COMPARISON: None. FINDINGS: Bones: No fractures or dislocations. No suspicious bony lesions. Soft tissues: No joint effusion. No suspicious soft tissue calcifications. IMPRESSION: No acute fracture. No osseous lesion. If symptoms and/or clinical suspicion for patholog y continue, further assessment with repeat plain films, or advanced imaging (e.g., CT, MRI, or bone s can) is recommended for further assessment. Reviewed by: Mena Giron MD on 06/03/2021 3:05 PM PST Approved by: Mena Giron MD on 06/03/2021 3:05 PM PST Station ID: [id number]
== END 2021-06-03 11:44 | disposition home or self-care (01) ==
LOC: DI 11:43
PROVIDERS: ATTEND Family Medicine
DX: M25.562 Pain in left knee (principal)

== ENCOUNTER 2021-08-06 09:49 | Outpatient (CLI) | payer MEDICARE, OTHER ==
[2021-08-06 10:21] LABS: CHOL/HDL RATIO 2.1 (<4.4); CHOLESTEROL 174 mg/dL; HDL CHOLESTEROL 83 mg/dL; LDL CHOLESTEROL,CALCULATED 80 mg/dL; TRIGLYCERIDES 56 mg/dL; VLDL CHOLESTEROL 11 mg/dL
== END 2021-08-06 09:50 | disposition home or self-care (01) ==
LOC: LAB 09:49
PROVIDERS: ATTEND Nurse Practitioner Family
DX: E78.5 Hyperlipidemia, unspecified (principal)
CPT/HCPCS: 36415; 80061; 83721

== ENCOUNTER 2021-09-18 11:52 | Outpatient (CLI) | payer MEDICARE, OTHER ==
--- NOTE | 2021-09-18 14:52 | CT Report ---
PROCEDURE: CHEST WO INDICATIONS: SHORTNESS OF BREATH, COPD TECHNIQUE: Noncontrast 1mm axial images were acquired from the pulmonary apices to the posterior costophrenic an gles. Axial 5 mm soft tissue kernel reconstructions were performed as well as 8 mm axial MIP and cor onal and sagittal 5 mm reformations. For radiation dose reduction, the following was used: automate d exposure control, adjustment of mA and/or kV according to patient size. COMPARISON: CXR 03/10/2021. CT thoracic spine 07/27/2019. FINDINGS: Image quality: Excellent. Lungs and pleura: Mild emphysematous change. Multiple small pulmonary nodules measuring 0.4 cm or le ss. Several of these are seen on the prior CT thoracic spine 07/27/2019. No acute air space opacities . No pleural effusions or pneumothorax. Central and peripheral airways are patent and normal in aleah iber. Mediastinum: Heart size is normal. Three-vessel coronary artery calcifications. No pericardial effu brock. No mediastinal adenopathy by size criteria. Thoracic aorta and central pulmonary arteries are normal in size. Esophagus is normal in caliber. No hiatal hernia. Bones and chest wall: No suspicious bony lesions. T10 compression fracture with vertebroplasty. Righ t shoulder DJD. No axillary or supraclavicular adenopathy by size criteria. The thyroid is normal in size and there are no incidental findings. Device at the left paramedian chest wall. Abdomen: Kidneys appear atrophic. Left adrenal nodule measuring 1.3 cm, (4/57), unchanged since 2019. This measures less than 10 Hounsfield units and is is consistent with a benign adenoma. IMPRESSION: 1. Mild emphysematous change. 2. No acute airspace opacity. 3. Multiple small pulmonary nodules measuring 0.4 cm or less. Many of these are seen on the CT from 2 020. Favor benign etiology. 4. Small benign left adrenal adenoma. Reviewed by: John Torrez MD on 09/18/2021 2:50 PM PST Approved by: John Torrez MD on 09/18/2021 2:50 PM PST Station ID: [id number]
== END 2021-09-18 11:53 | disposition home or self-care (01) ==
LOC: DI 11:52
PROVIDERS: ATTEND Family Medicine
DX: J43.9 Emphysema, unspecified (principal); R91.8 Other nonspecific abnormal finding of lung field; D35.02 Benign neoplasm of left adrenal gland

== ENCOUNTER 2021-11-27 13:35 | Outpatient (CLI) | payer MEDICARE, OTHER ==
--- NOTE | 2021-11-27 14:44 | Ultrasound Report ---
PROCEDURE: Duplex Ext Veins Left INDICATIONS: LEFT LEG EDEMA TECHNIQUE: Real-time imaging, as well as color and pulse Doppler interrogation, were performed of the lower extr emity deep veins from the inguinal ligament to the popliteal fossa. COMPARISON: None. FINDINGS: The deep veins are normally compressible, and free of intraluminal thrombus. Color and pu lse Doppler demonstrate normal phasic intraluminal flow. There is normal augmentation response to di stal compression maneuver. IMPRESSION: No sonographic evidence of DVT. Circumferential soft tissue edema in the left lower extr emity. Reviewed by: Mal Rosas MD on 11/27/2021 2:43 PM PDT Approved by: Mal Rosas MD on 11/27/2021 2:43 PM PDT Station ID: [id number]
== END 2021-11-27 13:36 | disposition home or self-care (01) ==
LOC: DI 13:35
PROVIDERS: ATTEND Family Medicine
DX: R60.0 Localized edema (principal)

== ENCOUNTER 2022-04-09 14:22 | Emergency (ER) | payer MEDICARE, OTHER ==
[2022-04-09] MEDS ORDERED: SODIUM CHLORIDE 0.9% 1,000 ML IV STA (14:47)
--- NOTE | 2022-04-09 14:51 | ED Physician Documentation ---
History of Present Illness - Stated complaint Stated Complaint: GEN WEAKNESS - Chief complaint Chief Complaint: General - Additonal information Additional information: 81-year-old female is brought to the emergency department for evaluation of 1 week diarrhea, increased generalized weakness and loss of appetite as well as abdominal pain. The patient reports that about a week ago she began having up to 10 or more watery stools a day. Nonbloody. She has at times taken up to 8 or 12 Imodium tablets without relief of the symptoms. She is also begun to feel generally weak, dehydrated and has a lack of appetite. She often has abdominal cramping. She denies any formal previous surgical abdominal history. She is not anticoagulated. She is on well water. Denies any recent antibiotics or travel. Due to the frequency of the diarrhea she has been incontinent of stool at times Review of Systems Constitutional: reports: Fatigue. denies: Fever, Chills Cardiac: denies: Chest pain / pressure, Palpitations Respiratory: denies: Dyspnea, Cough GI: reports: Abdominal Pain, Nausea, Vomiting, Diarrhea. 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 : None HEENT: Macular degeneration Psych: None Musculoskeletal: None Derm: None - Past Surgical History Past Surgical History: Yes General: Appendectomy Cardiovascular: Coronary stent - Present Medications Home Medications: Ambulatory Orders Medication Instructions Recorded Confirmed Atorvastatin Calcium [Lipitor] 80 mg PO HS 06/16/03/03/22 Albuterol Sulf [Ventolin Hfa 1 - 2 puffs INH Q4HR PRN #1 inhaler 11/20/18 03/03/22 Inhaler] Gabapentin 1 tab PO QID 11/20/18 03/03/22 Pantoprazole [Protonix] 1 tab PO DAILY 11/20/18 03/03/22 traZODone [Desyrel] 2 tab PO QPM 11/20/18 03/03/22 Albuterol Sulfate [Albuterol 2 puffs IH QID #1 hfa.aer.ad 09/22/19 03/03/22 Sulfate Hfa] Alendronate [Fosamax] 1 tab PO PRN PRN 07/11/21 03/03/22 Aspirin [Aspirin EC] 81 mg PO DAILY 07/11/21 03/03/22 Calcium Carbonate/Vitamin D3 2 tab PO DAILY 07/11/21 03/03/22 [Calcium 600 mg-D3 10 Mcg Sfgl] Cholecalciferol (Vitamin D3) 5,000 unit PO DAILY 07/11/21 03/03/22 [Vitamin D3] D-Mannose [Azo D-Mannose] 500 mg PO DAILY 07/11/21 03/03/22 Ibuprofen 2 tab PO BID 07/11/21 03/03/22 Multivitamin 1 each PO DAILY 07/11/21 03/03/22 busPIRone [Buspar] 1.5 tab PO DAILY 07/11/21 03/03/22 cilostazoL [Cilostazol] 1 tab PO BID 07/11/21 03/03/22 methocarbamoL [Methocarbamol] 500 mg PO PRN PRN 07/11/21 03/03/22 chlordiazePOXIDE [Librium] 25 mg PO Q6H PRN #12 cap 02/26/22 03/03/22 Azithromycin 500 mg PO DAILY 2 Days #4 tablet 04/09/22 - Allergies Allergies/Adverse Reactions: Allergies Allergy/AdvReac Type Severity Reaction Status Date / Time clopidogrel bisulfate * Allergy Severe Rash Verified 04/09/22 14:27 [From Plavix] erythromycin base Allergy Mild Rash Verified 04/09/22 14:27 [Erythromycin Base] Penicillins Allergy Mild Rash Verified 04/09/22 14:27 spironolactone Allergy Mild Rash Verified 04/09/22 14:27 diazepam [From Valium] AdvReac Mild Anxiety Verified 04/09/22 14:27 - Social History Does the pt smoke?: No Smoking Status: Never smoker Does the pt drink ETOH?: Yes Does the pt have substance abuse?: No - Immunizations Immunizations are current?: Yes - POLST Patient has POLST: No PD ED PE NORMAL - General General: Alert and oriented X 3, No acute distress - HEENT HEENT: Atraumatic. No: Moist mucous membranes (Dry mouth and oropharyngeal spaces) - Neck Neck: Supple, no meningeal sign, No adenopathy - Cardiac Cardiac: RRR, No murmur - Respiratory Respiratory: No respiratory distress, Clear bilaterally - Abdomen Abdomen: Normal bowel sounds, Soft. No: Non tender (generalized non focal, non peritoneal abdominal tenderness) - Back Back: No CVA TTP, No spinal TTP - Derm Derm: Normal color, Warm and dry, No rash - Extremities Extremities: No deformity, No tenderness to palpate, Normal ROM s pain - Neuro Neuro: Alert and oriented X 3 Eye Opening: Spontaneous Motor: Obeys Commands Verbal: Oriented GCS Score: 15 Results - Vitals Vitals: Vital Signs - 24 hr 04/09/22 14:27 Temperature 36.5 C Heart Rate 80 Respiratory 16 Rate Blood Pressure 144/85 H O2 Saturation 98 Oxygen O2 Source Room air - Labs Labs: Laboratory Tests 04/09/22 04/09/22 15:18 15:18 WBC 14.3 H RBC 4.26 Hgb 14.1 Hct 42.2 MCV 99.1 H MCH 33.1 H MCHC 33.4 RDW 12.9 Plt Count 361 MPV 8.8 Neut # (Auto) 12.6 H Lymph # (Auto) 1.0 L [place] # (Auto) 0.5 Eos # (Auto) 0.0 Baso # (Auto) 0.1 Absolute Nucleated RBC 0.00 Nucleated RBC % 0.0 Sodium 137 Potassium 3.9 Chloride 106 Carbon Dioxide 21 Anion Gap 10.0 BUN 15 Creatinine 0.8 Estimated GFR (MDRD) 69 L Glucose 141 H Calcium 10.6 H Total Bilirubin 0.7 AST 24 ALT 31 Alkaline Phosphatase 95 Total Protein 7.5 Albumin 4.3 Globulin 3.2 Albumin/Globulin Ratio 1.3 Lipase 285 H - Rads (name of study) CT abd Radiology: Final report received (Mild fluid-filled small bowel loops which could represent enteritis. It is overall nonobstructive pattern) PD MEDICAL DECISION MAKING - ED course Complexity details: reviewed results, re-evaluated patient, considered differential, d/w patient, d/w family ED course: 81-year-old female presents emergency department for evaluation of diarrhea that began about 1 week ago. No fevers and nonbloody. No recent antibiotic use but she is had a difficult time with incontinence due to the volume of stool. Her daughter reports to me that she is recently sober as of 1 month ago. Her labs today show a mild leukocytosis. She does have a mildly elevated lipase at just about 285. Stool culture as well as C. difficile of the stool is pending. The patient was unable to adequately give us a urine sample and she declined an in and out catheterization. The CT of the abdomen showed a diffuse enteritis. Given her age and the failure the diarrhea to resolve over the last week with routine conservative measures she will be started on a 3-day course of azithromycin for presumed infectious diarrhea. I am also recommending that they use a dose or 2 of Pepto-Bismol at home. If the stool culture C. difficile is positive antibiotic regimen will be changed. Routine care and concerns for avoidance of dehydration were also discussed. This patient did present with 2 large [employer] bins full of medication totaling more than 60. There were multiple repeat scripts and many very old medications. I am encouraging the patient and her daughter to follow-up with her primary to determine exactly what medications should be taken every day as polypharmacy may be contributing to the symptoms. Emergent return precautions otherwise discussed Departure - Departure Disposition: 01 Home, Self Care Clinical Impression: Elevated lipase Diarrhea Qualifiers: Diarrhea type: unspecified type Qualified Code(s): R19.7 - Diarrhea, unspecified Condition: Stable Instructions: ED Diarrhea Bacterial Inf Td Prescriptions: Azithromycin 500 mg PO DAILY 2 Days #4 tablet Comments: Karolyn you are seen today in the ER because you have had pretty bad diarrhea now for about 1 week. Today the most significant finding in your labs is that you have a mildly elevated lipase. This may be due to your years of alcohol use. The CT of your abdomen however did not show any bowel obstructions or problems with the gallbladder or liver. It does suggest an enteritis which is the medical term for inflammation within the small intestine. This could be the cause of the diarrhea. We are starting you on some antibiotics to treat possible infection. Your first dose of azithromycin was given in the emergency department today. For the next 2 days you are to take 500 mg. We have made the recommendation for you to take a dose or 2 of Pepto-Bismol to help reduce your diarrhea but you do need to make sure you are staying hydrated so I recommend using Pedialyte, broth or water at home. If you feel your symptoms are not getting better, you develop fevers or have bloody stools return immediately to the ER. It is important that you follow-up with your primary provider next week to discuss this ED visit. 1 point of discussion should be the concern of polypharmacy and which medications you are taking each day
[2022-04-09] MEDS ORDERED: ONDANSETRON 4 MG/2 ML VIAL IVP STA (14:53)
[2022-04-09] MEDS ORDERED: HYDROmorphone 1 MG/ML CARPUJECT IVP STA (14:53)
[2022-04-09 15:24] LABS: BASOPHILS # (AUTO) 0.1 10^3/uL (0.0-0.1); BASOPHILS % (AUTO) 0.6 %; EOSINOPHILS % (AUTO) 0.2 %; HCT - HEMATOCRIT 42.2 % (37.0-47.0); HGB - HEMOGLOBIN 14.1 g/dL (12.0-16.0); MEAN CORPUSCULAR HEMOGLOBIN 33.1 pg (27.0-31.0); MEAN CORPUSCULAR HGB CONC 33.4 g/dL (32.0-36.0); MEAN CORPUSCULAR VOLUME 99.1 fL (81.0-99.0); MEAN PLATELET VOLUME 8.8 fL (7.9-10.8); MONOCYTES # (AUTO) 0.5 10^3/uL (0.0-1.0); MONOCYTES % (AUTO) 3.4 %; NEUTROPHILS # (AUTO) 12.6 10^3/uL (1.5-6.6); NEUTROPHILS % (AUTO) 88.2 %; PLT - PLATELET COUNT 361 10^3/uL (130-450); RED BLOOD COUNT 4.26 10^6/uL (4.20-5.40); RED CELL DISTRIBUTION WIDTH 12.9 % (12.0-15.0); WHITE BLOOD COUNT 14.3 x10^3/uL (4.8-10.8)
[2022-04-09 15:46] LABS: ALBUMIN 4.3 g/dL (3.2-5.5); ALBUMIN/GLOBULIN RATIO 1.3 (1.0-2.2); BILIRUBIN,TOTAL 0.7 mg/dL (0.2-1.0); CALCIUM 10.6 mg/dL (8.5-10.3); CREATININE 0.8 mg/dL (0.4-1.0); POTASSIUM 3.9 mmol/L (3.5-5.0); TOTAL PROTEIN 7.5 g/dL (6.7-8.2)
--- NOTE | 2022-04-09 16:15 | CT Report ---
PROCEDURE: Abdomen/Pelvis WO INDICATIONS: diarrhea for 1 weeks TECHNIQUE: Noncontrast 5 mm thick sections acquired from the diaphragms to the symphysis. 5 mm coronal and sagi ttal reformats were then performed. For radiation dose reduction, the following was used: automated exposure control, adjustment of mA and/or kV according to patient size. COMPARISON: None. FINDINGS: Image quality: Excellent. ABDOMEN: Lung bases: Lung bases are clear. Heart size is enlarged. Solid organs: Liver and spleen are normal in size. Low-attenuation focus is present within the live r measuring 4 mm. Gallbladder is partially contracted, limiting evaluation. Pancreas is normal in co ntours. No adrenal nodules. Kidneys are atrophic in size, without hydronephrosis. Nonobstructing bi lateral renal calculi are present as well as renal vascular calcifications. Peritoneum and bowel: Unenhanced bowel loops are nonobstructive. Fluid-filled small bowel loops are present. No free fluid or air. Nodes and vessels: No retroperitoneal or mesenteric adenopathy by size criteria. Aorta and inferior vena cava are normal in caliber. Calcifications are present at the origin of the superior mesenteri c artery causing at least 60% stenosis as well as calcification at the origin of the left renal arter y with at least 60% stenosis. Miscellaneous: No ventral hernias. PELVIS: Genitourinary: Bladder wall thickness is normal. Miscellaneous: No inguinal hernias or adenopathy. Bones: No suspicious bony lesions. No vertebral body compression fractures. IMPRESSION: Mild fluid-filled small bowel loops which could represent enteritis. It is overall nonobstructive pat tern. Reviewed by: Shira Greene MD on 04/09/2022 4:14 PM PDT Approved by: Shira Greene MD on 04/09/2022 4:14 PM PDT Station ID: [id number]
[2022-04-09] MEDS ORDERED: AZITHROMYCIN 250 MG TABLET PO STA (16:48)
[2022-04-09 17:43] VITALS: BP 143/111
--- NOTE | 2022-04-10 12:11 | ED Physician Documentation ---
ED Addendum - Addendum Addendum: 04/10/22 12:09 Patient was seen in the emergency department yesterday for 1 week of diarrhea. Screening labs showed no worrisome electrolyte abnormality spearing a mildly elevated lipase. Patient did not have any upper abdominal tenderness and a CT of the abdomen showed an enteritis but nothing to suggest acute pancreatitis. Patient also has a history of alcohol abuse and has been sober now for 30 days. Stool culture yesterday was negative for C. difficile. The rest of the culture is pending. Given her age and the volume of the diarrhea we chose to empirically treat for suspected infectious etiology. She was given 500 mg of azithromycin in the emergency department yesterday but she does have an erythromycin allergy and the pharmacy refused to fill the azithromycin sent therefore a new prescription for Flagyl has been sent to the [facility] in [place].
== END 2022-04-09 17:50 | disposition home or self-care (01) ==
LOC: EDUNIT# → SUPCPDRO 14:22 → ED 14:22
DX: R19.7 Diarrhea, unspecified (principal); R74.8 Abnormal levels of other serum enzymes; I10 Essential (primary) hypertension
CPT/HCPCS: 36415; 74176; 80053; 83690; 85025; 87045; 87046; 87427; 87493; 96361; 96374; 99284; A9270; J1170

== ENCOUNTER 2022-04-28 05:43 | Outpatient (CLI) | payer MEDICARE, OTHER | END 2022-04-28 05:44 | disposition critical access hospital (66) | LOC: EMS 05:43 | DX: R47.81 Slurred speech (principal); R29.810 Facial weakness; R53.1 Weakness | CPT/HCPCS: A0425; A0429 ==

== ENCOUNTER 2022-04-28 05:57 | Emergency (ER) | payer MEDICARE, OTHER ==
[2022-04-28 06:27] LABS: BASOPHILS # (AUTO) 0.1 10^3/uL (0.0-0.1); BASOPHILS % (AUTO) 0.8 %; EOSINOPHILS # (AUTO) 0.2 10^3/uL (0.0-0.7); EOSINOPHILS % (AUTO) 3.2 %; HCT - HEMATOCRIT 35.4 % (37.0-47.0); HGB - HEMOGLOBIN 11.6 g/dL (12.0-16.0); LYMPHOCYTES # (AUTO) 0.9 10^3/uL (1.5-3.5); MEAN CORPUSCULAR HEMOGLOBIN 32.7 pg (27.0-31.0); MEAN CORPUSCULAR HGB CONC 32.8 g/dL (32.0-36.0); MEAN CORPUSCULAR VOLUME 99.7 fL (81.0-99.0); MEAN PLATELET VOLUME 9.1 fL (7.9-10.8); MONOCYTES # (AUTO) 0.5 10^3/uL (0.0-1.0); MONOCYTES % (AUTO) 8.4 %; NEUTROPHILS # (AUTO) 4.6 10^3/uL (1.5-6.6); NEUTROPHILS % (AUTO) 73.1 %; PLT - PLATELET COUNT 230 10^3/uL (130-450); RED BLOOD COUNT 3.55 10^6/uL (4.20-5.40); WHITE BLOOD COUNT 6.3 x10^3/uL (4.8-10.8)
--- NOTE | 2022-04-28 06:32 | ED Physician Documentation ---
History of Present Illness - Stated complaint Stated Complaint: CODE STROKE - Chief complaint Chief Complaint: Critical Care - History obtained from History obtained from: Patient, Family (daughter), EMS - Additonal information Additional information: 81-year-old woman with past medical history of high blood pressure, IA status post stent, not currently on any blood thinners, presents with Difficulty speaking and right-sided weakness when found on the floor the bathroom around 4 AM per daughter. Last seen normal at 8:30 PM last night.Further history limited by patient acuity. Patient was code stroke upon arrival. 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 HEENT: Macular degeneration Psych: None Musculoskeletal: None Derm: None - Past Surgical History Past Surgical History: Yes General: Appendectomy Cardiovascular: Coronary stent - Present Medications Home Medications: Ambulatory Orders Medication Instructions Recorded Confirmed Atorvastatin Calcium [Lipitor] 80 mg PO HS 06/16/13 04/28/22 Albuterol Sulf [Ventolin Hfa 1 - 2 puffs INH Q4HR PRN #1 inhaler 11/20/18 04/28/22 Inhaler] Gabapentin 1 tab PO QID 11/20/18 04/28/22 Pantoprazole [Protonix] 1 tab PO DAILY 11/20/18 04/28/22 traZODone [Desyrel] 2 tab PO QPM 11/20/18 04/28/22 Albuterol Sulfate [Albuterol 2 puffs IH QID #1 hfa.aer.ad 09/22/19 04/28/22 Sulfate Hfa] Alendronate [Fosamax] 1 tab PO PRN PRN 07/11/21 04/28/22 Aspirin [Aspirin EC] 81 mg PO DAILY 07/11/21 04/28/22 Calcium Carbonate/Vitamin D3 2 tab PO DAILY 07/11/21 04/28/22 [Calcium 600 mg-D3 10 Mcg Sfgl] Cholecalciferol (Vitamin D3) 5,000 unit PO DAILY 07/11/21 04/28/22 [Vitamin D3] D-Mannose [Azo D-Mannose] 500 mg PO DAILY 07/11/21 04/28/22 Ibuprofen 2 tab PO BID 07/11/21 04/28/22 Multivitamin 1 each PO DAILY 07/11/21 04/28/22 cilostazoL [Cilostazol] 1 tab PO BID 07/11/21 04/28/22 chlordiazePOXIDE [Librium] 25 mg PO Q6H PRN #12 cap 02/26/22 04/28/22 Furosemide [Lasix] 10 mg PO 04/28/22 - Allergies Allergies/Adverse Reactions: Allergies Allergy/AdvReac Type Severity Reaction Status Date / Time clopidogrel bisulfate * Allergy Severe Rash Verified 04/28/22 06:06 [From Plavix] erythromycin base Allergy Mild Rash Verified 04/28/22 06:06 [Erythromycin Base] Penicillins Allergy Mild Rash Verified 04/28/22 06:06 spironolactone Allergy Mild Rash Verified 04/28/22 06:06 diazepam [From Valium] AdvReac Mild Anxiety Verified 04/28/22 06:06 - Social History Does the pt smoke?: No Smoking Status: Never smoker Does the pt drink ETOH?: Yes Does the pt have substance abuse?: No - Immunizations Immunizations are current?: Yes - POLST Patient has POLST: No PD ED PE NORMAL - Vitals Vital signs reviewed: Yes - General General: Alert and oriented X 3, No acute distress, Well developed/nourished - HEENT HEENT: Atraumatic, PERRL, EOMI, Moist mucous membranes, Pharynx benign - Neck Neck: Supple, no meningeal sign - Cardiac Cardiac: RRR - Respiratory Respiratory: No respiratory distress, Clear bilaterally - Abdomen Abdomen: Non tender, Non distended - Derm Derm: Normal color, Warm and dry - Extremities Extremities: No deformity - Neuro Neuro: Other (Alert and oriented. NIHSS 5 (1 for dysarthria, 1 for aphasia, 1 for right upper extremity drift, 1 for ataxia in right upper extremity, 1 for ability to answer questions.)) - Psych Psych: Normal mood, Normal affect Results - Vitals Vitals: Vital Signs - 24 hr 04/28/22 04/28/22 04/28/22 05:58 06:33 07:03 Temperature 36.3 C L Heart Rate 85 87 73 Respiratory 18 17 16 Rate Blood Pressure 135/70 H 168/76 H 152/88 H O2 Saturation 94 95 92 Oxygen O2 Source Room air - EKG (time done) 0636 Rate: Rate (enter#) (80) Rhythm: NSR [place]: Normal Intervals: Prolonged AK (308) Ischemia: Other (abnormal progression in precordial leads) - Labs Labs: Laboratory Tests 04/28/22 04/28/22 04/28/22 06:20 06:20 06:20 WBC 6.3 RBC 3.55 L Hgb 11.6 L Hct 35.4 L MCV 99.7 H MCH 32.7 H MCHC 32.8 RDW 13.0 Plt Count 230 MPV 9.1 Neut # (Auto) 4.6 Lymph # (Auto) 0.9 L [place] # (Auto) 0.5 Eos # (Auto) 0.2 Baso # (Auto) 0.1 Absolute Nucleated RBC 0.00 Nucleated RBC % 0.0 Sodium 137 Potassium 3.2 L Chloride 107 Carbon Dioxide 23 Anion Gap 7.0 BUN 16 Creatinine 0.9 Estimated GFR (MDRD) 60 L Glucose 106 H Calcium 9.4 Total Bilirubin 0.6 AST 15 ALT 20 Alkaline Phosphatase 76 Troponin I High Sens 27.0 H* Total Protein 5.5 L Albumin 3.3 Globulin 2.2 Albumin/Globulin Ratio 1.5 Lipase 27 PD MEDICAL DECISION MAKING - ED course ED course: 6:15am no bleed on ED physician wet read of CT. normotensive at this time. d/w Dr. Prajapati, manager of applications development stroke neurologist, [facility] - agree that patient is outside window for tPA given LSN 8:30pm last night. possible lacunar stroke given symptom pattern. f/u with MRI, TTE. give asa 325 now PO if tolerated. permissive hypertension. goal SBP <200. avoid hypotension. 6:40am d/w radiology - there is a Focal occlusion of L MCA from distal M1 segment to proximal M2 segment. will contact Dr. Prajapati, stroke neurology regarding this for potential thrombectomy. patient is still outside 6 hour typic al thrombectomy window but we will see if she may be a candidate for intervention. 6:50am d/w Dr. Prajapati - patient is now having improvement in RUE weakness. Dr. Prajapati suspects M1 occlusion may be chronic and patient may have robust M2 flow, interventionalist will not likely take for thrombectomy given low NIHSS however if patient shows signs of decline in the first 24h she may be taken to IR. Dr. Prajapati is going to work on transfer to either [facility] or [facility]. 7am - reassessment - NIHSS 5 (patient now with mild R facial droop, but RUE ataxia has resolved). 7:20am - d/w Dr. Prajapati and juan jeffries, accepting MD Dr. Ocasio (interventional radiology). patient to be flown out via life flight. 7:30am - too foggy out. life flight declined. will transport lights and sirens by [facility] ground transport. - Critical Care Time Includes: Direct patient care, Review records, Reassess patient, Document care, Coordinate care, Medical consult Data interpretation: Labs, CXR Departure - Departure Disposition: 02 Transfer Acute Care Hosp Clinical Impression: Acute ischemic left MCA stroke Condition: Stable
[2022-04-28 06:40] LABS: ALBUMIN 3.3 g/dL (3.2-5.5); ALBUMIN/GLOBULIN RATIO 1.5 (1.0-2.2); BILIRUBIN,TOTAL 0.6 mg/dL (0.2-1.0); CALCIUM 9.4 mg/dL (8.5-10.3); CREATININE 0.9 mg/dL (0.4-1.0); POTASSIUM 3.2 mmol/L (3.5-5.0); TOTAL PROTEIN 5.5 g/dL (6.7-8.2)
[2022-04-28] MEDS ORDERED: ASPIRIN 325 MG TABLET PO STA (07:12)
[2022-04-28 07:38] VITALS: BP 179/92
--- NOTE | 2022-04-28 08:31 | XRAY Report ---
PROCEDURE: Chest 1 View X-Ray INDICATIONS: Chest Pain TECHNIQUE: One view of the chest was acquired. COMPARISON: 03/05/2022 and a 1621. FINDINGS: Surgical changes and devices: Malleolus spacer is noted projecting in left infrahilar region. Lungs and pleura: No pleural effusions or pneumothorax. There is pulmonary vascular congestion. Hazy opacities throughout bilateral lung pond are seen suggestive of pulmonary edema. No definite focal infiltrate. Mediastinum: Mediastinal contours appear normal. Heart size is enlarged. Bones and chest wall: No suspicious bony lesions. Overlying soft tissues appear unremarkable. IMPRESSION: Finding is suggestive of CHF. No gross pneumothorax. No significant pleural effusion. No significant discrepancies from preliminary reading. Reviewed by: Gerard Alas MD on 04/28/2022 8:30 AM PDT Approved by: Gerard Alas MD on 04/28/2022 8:30 AM PDT Station ID: [id number]
--- NOTE | 2022-04-28 08:33 | CT Report ---
PROCEDURE: ANGIO HEAD W/WO INDICATIONS: code stroke CONTRAST: IV CONTRAST: Optiray 320 ml: 80 PO CONTRAST: *NO PO CONTRAST TECHNIQUE: Precontrast 4.5 mm thick angled axial sections acquired from the foramen magnum to the vertex. Afte r the administration of intravenous contrast, 1 mm thick sections acquired through the [place] of [place] is. Postcontrast 4.5 mm thick sections then re-acquired from the foramen magnum to the vertex. 3-di mensional dznedni-gxobmpqlc-vcwbgcjrdy (MIP) and/or volume rendering reformats were acquired of the c entral intracranial vasculature. For radiation dose reduction, the following was used: automated ex posure control, adjustment of mA and/or kV according to patient size. COMPARISON: CTA Neck 04/28/22 FINDINGS: Image quality: Excellent. Anterior circulation: Intracranial internal carotid arteries are normal in size and flow. The flow within the paired anterior cerebral arteries is normal and symmetric. There is occlusion at the dist al left to M2 segment. The anterior communicating artery is seen. No aneurysms are seen. Posterior circulation: Slight left vertebral artery dominance. Visualized portions of the vertebral arteries demonstrate normal caliber, and join to form a normal appearing basilar artery. Flow withi n the posterior cerebral arteries is normal and symmetric. No aneurysms are seen. The ventricular system and cortical sulci demonstrate atrophy, consistent for patient's stated age. There are areas of hypodensity in the periventricular and subcortical white matter. There is no acut e intra or extra-axial fluid collection. No acute hemorrhage, mass lesion or midline shift. Brainst em is unremarkable. Globes are symmetrical. Sinuses are aerated. Osseous structures are intact. IMPRESSION: 1. No acute intracranial process. 2. Moderate atrophy and chronic microvascular ischemic changes. 3. There is occlusion within the distal left M1 segment of the middle cerebral artery appearing acut e. The above findings are concordant with preliminary report. Reviewed by: Shira Greene MD on 04/28/2022 8:32 AM PDT Approved by: Shira Greene MD on 04/28/2022 8:32 AM PDT Station ID: [id number]
--- NOTE | 2022-04-28 11:26 | CT Report ---
PROCEDURE: ANGIO NECK W INDICATIONS: code stroke CONTRAST: IV CONTRAST: Optiray 320 ml: 80 PO CONTRAST: *NO PO CONTRAST TECHNIQUE: After the administration of intravenous contrast, 1.5 mm axial sections acquired from the aortic arch to the [place]. Coronal 3-D maximum intensity projection (MIP) and/or volume rendering ref ormats were then performed. For radiation dose reduction, the following was used: automated exposur e control, adjustment of mA and/or kV according to patient size. COMPARISON: CTA head 04/28/2022, CT chest 09/18/2021 FINDINGS: Image quality: Excellent. The origins of the left and right common and external carotid arteries demonstrate no areas of hemody namically significant stenosis, vascular occlusion or aneurysmal dilation. There is calcification at the origin of the left internal carotid artery resulting in approximately 50-60% stenosis. There is moderate narrowing of the left carotid bulb. In addition, calcification is also noted at the origin o f the right internal carotid artery, measuring approximately 50%. Origin of the left vertebral artery and right vertebral artery demonstrate no areas of hemodynamically significant stenosis, vascular oc clusion or aneurysmal dilation. Aortic arch demonstrates conventional anatomy. Limited, visualized po rtions of the subclavian vasculature are unremarkable. 3 mm right upper lobe nodule is present on ser ies 2 image 65. It is unchanged compared to 09/18/2021. 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 3 mm right upper lobe nodule, unchanged from 09/18/2021. Recommend interval follow-up to document stab ility over 24 month period. The estimate of stenosis included in the report of the imaging study was calculated using the NASCET method CLINICAL RECOMMENDATION STATEMENTS: In patients <35 years with an ITN detected on CT, MRI, or extrathyroidal ultrasound, the Committee re commends further evaluation with dedicated thyroid ultrasound if the nodule is "e1 cm and has no susp icious imaging features, and if the patient has normal life expectancy. In patients "e35 years with an ITN detected on CT, MRI, or extrathyroidal ultrasound, the Committee r ecommends further evaluation with dedicated thyroid ultrasound if the nodule is "e1.5 cm and has no s uspicious imaging features, and if the patient has normal life expectancy. (ACR, 2014) Reviewed by: Shira Greene MD on 04/28/2022 11:24 AM PDT Approved by: Shira Greene MD on 04/28/2022 11:24 AM PDT Station ID: [id number]
== END 2022-04-28 08:14 | disposition short-term general hospital (02) ==
LOC: EDUNIT# → ED 05:57
DX: I63.89 Other cerebral infarction (principal); R47.01 Aphasia; G81.91 Hemiplegia, unspecified affecting right dominant side; R29.810 Facial weakness; R29.705 NIHSS score 5; Z20.822 Contact with and (suspected) exposure to COVID-19
CPT/HCPCS: 36415; 70496; 70498; 71045; 80053; 83690; 84484; 85025; 87635; 93005; 99285; 99291; A9270; Q9967

== ENCOUNTER 2022-04-30 17:55 | Emergency (ER) | payer MEDICARE, OTHER ==
--- NOTE | 2022-04-30 18:18 | ED Physician Documentation ---
PD HPI FOCAL NEURO - Stated complaint Stated Complaint: STRUGGLING TO SPEAK - Chief complaint Chief Complaint: Neuro - History obtained from History obtained from: Patient, Family - Additional information Additional information: This is an 81-year-old woman who presents by private vehicle with her daughter. The morning before last she was seen here for stroke symptoms and noted to have a left M1 occlusion and was flown to [facility] where her symptoms resolved and subsequently was discharged on aspirin. Today around 1 PM started to have similar symptoms again which included difficulty with speech and word finding as well as some right facial droop. Symptoms are somewhat better now. Since her symptoms were better while she was at [facility], no intervention was done. She denies headache. She has no history of heart rhythm problems but does have coronary stents. Review of Systems Constitutional: reports: Reviewed and negative Ears: reports: Reviewed and negative Throat: reports: Reviewed and negative Cardiac: reports: Reviewed and negative PD PAST MEDICAL HISTORY - Past Medical History Cardiovascular: Hypertension, Coronary artery disease, [place] Respiratory: None Neuro: None Endocrine/Autoimmune: None GI: None BELLMAN: None : None HEENT: Macular degeneration Psych: None Musculoskeletal: None Derm: None - Past Surgical History Past Surgical History: Yes General: Appendectomy Cardiovascular: Coronary stent - Present Medications Home Medications: Ambulatory Orders Medication Instructions Recorded Confirmed Atorvastatin Calcium [Lipitor] 80 mg PO HS 06/16/13 04/28/22 Albuterol Sulf [Ventolin Hfa 1 - 2 puffs INH Q4HR PRN #1 inhaler 11/20/18 04/28/22 Inhaler] Gabapentin 1 tab PO QID 11/20/18 04/28/22 Pantoprazole [Protonix] 1 tab PO DAILY 11/20/18 04/28/22 traZODone [Desyrel] 2 tab PO QPM 11/20/18 04/28/22 Albuterol Sulfate [Albuterol 2 puffs IH QID #1 hfa.aer.ad 09/22/19 04/28/22 Sulfate Hfa] Alendronate [Fosamax] 1 tab PO PRN PRN 07/11/21 04/28/22 Aspirin [Aspirin EC] 81 mg PO DAILY 07/11/21 04/28/22 Calcium Carbonate/Vitamin D3 2 tab PO DAILY 07/11/21 04/28/22 [Calcium 600 mg-D3 10 Mcg Sfgl] Cholecalciferol (Vitamin D3) 5,000 unit PO DAILY 07/11/21 04/28/22 [Vitamin D3] D-Mannose [Azo D-Mannose] 500 mg PO DAILY 07/11/21 04/28/22 Ibuprofen 2 tab PO BID 07/11/21 04/28/22 Multivitamin 1 each PO DAILY 07/11/21 04/28/22 cilostazoL [Cilostazol] 1 tab PO BID 07/11/21 04/28/22 chlordiazePOXIDE [Librium] 25 mg PO Q6H PRN #12 cap 02/26/22 04/28/22 Furosemide [Lasix] 10 mg PO 04/28/22 Clopidogrel [Plavix] 75 mg PO DAILY #21 tablet 04/30/22 - Allergies Allergies/Adverse Reactions: Allergies Allergy/AdvReac Type Severity Reaction Status Date / Time clopidogrel bisulfate * Allergy Severe Rash Verified 04/28/22 06:06 [From Plavix] erythromycin base Allergy Mild Rash Verified 04/28/22 06:06 [Erythromycin Base] Penicillins Allergy Mild Rash Verified 04/28/22 06:06 spironolactone Allergy Mild Rash Verified 04/28/22 06:06 diazepam [From Valium] AdvReac Mild Anxiety Verified 04/28/22 06:06 - Social History Does the pt smoke?: No Smoking Status: Never smoker Does the pt drink ETOH?: Yes Does the pt have substance abuse?: No - Immunizations Immunizations are current?: Yes - POLST Patient has POLST: No PD ED PE NORMAL - Vitals Vital signs reviewed: Yes - General General: Alert and oriented X 3, No acute distress - HEENT HEENT: PERRL, EOMI, Other (Very mild word finding difficulties and dysarthria, I do not appreciate a facial droop at this juncture.) - Neck Neck: Supple, no meningeal sign, No bony TTP - Cardiac Cardiac: RRR, No murmur - Respiratory Respiratory: No respiratory distress, Clear bilaterally - Abdomen Abdomen: Non tender - Derm Derm: Normal color, Warm and dry - Extremities Extremities: No edema, No calf tenderness / cord - Neuro Neuro: Alert and oriented X 3, Normal speech NIHSS - Time Time: 18:10 - Level of Consciousness Level of consciousness: (0) Alert, Keenly responsive LOC Questions: (0) Answers both Q's correct LOC Commands: (0) Performs both correctly - Gaze Best Gaze: (0) Normal - Visual Visual: (0) No loss - Facial Palsy Facial Palsy: (0) Normal, symmetrical movement - Motor Arms (both separate) Motor Arm (right): (0) No drift Motor Arm (left): (0) No drift - Motor Legs (both separate) Motor Leg (right): (0) No drift Motor Leg (left): (0) No drift - Limb Ataxia Limb Ataxia: (0) Absent - Sensory Sensory: (0) Normal - Best Language Best Language: (1) [id number] - Dysarthria Dysarthria: (1) [id number] dysarthria - Extinction and Inattention (formally neg Extinction and inattention: (0) No abnormality - Total Score/Results Total Score/Result: 2 Results - Vitals Vitals: Vital Signs - 24 hr 04/30/22 04/30/22 18:11 18:47 Temperature 36.8 C Heart Rate 72 63 Respiratory 18 14 Rate Blood Pressure 170/93 H 153/65 H O2 Saturation 98 99 Oxygen O2 Source Room air - Labs Labs: Laboratory Tests 04/30/22 04/30/22 04/30/22 18:24 18:24 19:17 WBC 7.1 RBC 3.98 L Hgb 13.1 Hct 39.2 MCV 98.5 MCH 32.9 H MCHC 33.4 RDW 13.1 Plt Count 287 MPV 9.0 Neut # (Auto) 4.2 Lymph # (Auto) 1.9 [place] # (Auto) 0.6 Eos # (Auto) 0.3 Baso # (Auto) 0.1 Absolute Nucleated RBC 0.00 Nucleated RBC % 0.0 INR (Fingerstick) 1.2 Sodium 138 Potassium 3.3 L Chloride 101 Carbon Dioxide 26 Anion Gap 11.0 BUN 11 Creatinine 0.9 Estimated GFR (MDRD) 60 L Glucose 102 H Calcium 9.5 PD MEDICAL DECISION MAKING - ED course ED course: 81yo with known left M1 MCA occlusion With waxing and waning strokelike symptoms today. Initial head CT was negative without contrast for hemorrhage and I spoke with Dr. Hunt, telestroke neurologist at 1900 who recommended loading with Plavix 300 mg. He reviewed chart, had MRI 02/26 with positive CVA in that distribution. She has a listed allergy to plavix, another DAPT tx is appropriate. I discussed with the patient what her previous reaction to clopidogrel was since she has a listed allergy to clopidogrel. She says she got a rash but it was not even for sure related to the complete a grill. Discussion with the patient and they are willing to retry it and she very much wants to go home. Admission to the hospital for observation was offered and declined. Departure - Departure Disposition: Home, Self Care Clinical Impression: Cerebrovascular accident (CVA) Qualifiers: CVA mechanism: embolism Precerebral and cerebral artery: middle cerebral artery Laterality of affected vessel: left Qualified Code(s): I63.412 - Cerebral infarction due to embolism of left middle cerebral artery Condition: Good Record reviewed to determine appropriate education?: Yes Instructions: ED Stroke Completed Prescriptions: Clopidogrel [Plavix] 75 mg PO DAILY #21 tablet Comments: As discussed the MRI done at [facility] the other night did prove that you had had a stroke, but they did not feel it necessary to address the clot by digging it out as it was probably there too long. The neurologist recommended we restart you on Plavix, you were loaded tonight with a higher dose and I am prescribing it for the next 3 weeks. Follow-up with your primary care physician, next available appointment. Return for new or worsening symptoms. Drink plenty of fluids.
[2022-04-30] MEDS ORDERED: iohexoL-300 100 ML VIAL ONE (18:31)
[2022-04-30 18:35] LABS: BASOPHILS # (AUTO) 0.1 10^3/uL (0.0-0.1); BASOPHILS % (AUTO) 0.9 %; EOSINOPHILS # (AUTO) 0.3 10^3/uL (0.0-0.7); EOSINOPHILS % (AUTO) 3.8 %; HCT - HEMATOCRIT 39.2 % (37.0-47.0); HGB - HEMOGLOBIN 13.1 g/dL (12.0-16.0); LYMPHOCYTES # (AUTO) 1.9 10^3/uL (1.5-3.5); LYMPHOCYTES % (AUTO) 26.8 %; MEAN CORPUSCULAR HEMOGLOBIN 32.9 pg (27.0-31.0); MEAN CORPUSCULAR HGB CONC 33.4 g/dL (32.0-36.0); MEAN CORPUSCULAR VOLUME 98.5 fL (81.0-99.0); MONOCYTES # (AUTO) 0.6 10^3/uL (0.0-1.0); MONOCYTES % (AUTO) 7.9 %; NEUTROPHILS # (AUTO) 4.2 10^3/uL (1.5-6.6); NEUTROPHILS % (AUTO) 60.2 %; PLT - PLATELET COUNT 287 10^3/uL (130-450); RED BLOOD COUNT 3.98 10^6/uL (4.20-5.40); RED CELL DISTRIBUTION WIDTH 13.1 % (12.0-15.0); WHITE BLOOD COUNT 7.1 x10^3/uL (4.8-10.8)
[2022-04-30] MEDS ORDERED: iohexoL-300 100 ML VIAL IVP ONE (18:42)
[2022-04-30 18:43] LABS: CALCIUM 9.5 mg/dL (8.5-10.3); CREATININE 0.9 mg/dL (0.4-1.0); POTASSIUM 3.3 mmol/L (3.5-5.0)
--- NOTE | 2022-04-30 18:51 | CT Report ---
PROCEDURE: Head W/O Stroke Protocol INDICATIONS: stroke sx TECHNIQUE: Noncontrast 4.5 mm thick angled axial sections acquired from the foramen magnum to the vertex, with c oronal reformats. For radiation dose reduction, the following was used: automated exposure control, adjustment of mA and/or kV according to patient size. COMPARISON: FINDINGS: Image quality: Excellent. CSF spaces: Basal cisterns are patent. No extra-axial fluid collections. Ventricles are normal in size and shape. Brain: No midline shift. No intracranial masses or hemorrhage. Robert-white matter interface is norm al. Skull and face: Calvarium and visualized facial bones are intact, without suspicious lesions. Sinuses: Visualized sinuses and mastoids are clear. IMPRESSION: CT head without acute intracranial abnormalities. Age-related senescent changes and sequela of chronic small vessel ischemic disease. Findings were discussed telephonically with Dr. Arhcibald at 1848 hrs. This study fulfills neurological imaging criteria for inclusion or exclusion of acute stroke therapie s based on available published neurological imaging guidelines. Reviewed by: Brennen Sanderson MD on 04/30/2022 6:49 PM PDT Approved by: Brennen Sanderson MD on 04/30/2022 6:49 PM PDT Station ID: [id number]
[2022-04-30] MEDS ORDERED: CLOPIDOGREL 300 MG TABLET PO STA (19:28)
--- NOTE | 2022-04-30 19:28 | CT Report ---
PROCEDURE: ANGIO HEAD W/WO INDICATIONS: stroke sx CONTRAST: IV CONTRAST: Optiray 320 ml: 80 PO CONTRAST: *NO PO CONTRAST TECHNIQUE: Precontrast 4.5 mm thick angled axial sections acquired from the foramen magnum to the vertex. Afte r the administration of intravenous contrast, 1 mm thick sections acquired through the [place] of [place] is. Postcontrast 4.5 mm thick sections then re-acquired from the foramen magnum to the vertex. 3-di mensional jnjvfph-kczxpsili-qczdygpexa (MIP) and/or volume rendering reformats were acquired of the c entral intracranial vasculature. For radiation dose reduction, the following was used: automated ex posure control, adjustment of mA and/or kV according to patient size. COMPARISON: 04/28/2022 FINDINGS: Image quality: Excellent. Anterior circulation: Intracranial internal carotid arteries are normal in size and flow. Moderate a therosclerotic calcifications of the intracranial segments of the internal carotid arteries without h igh-grade stenosis identified. The flow within the paired anterior cerebral arteries is normal and s ymmetric. Redemonstration of occlusion of the distal left middle cerebral artery, distal to the M2 se gment. Right middle cerebral artery appears patent. The anterior communicating artery is seen. No an eurysms are seen. Posterior circulation: Left dominant vertebral artery system as before. Visualized portions of the v ertebral arteries demonstrate normal caliber, and join to form a normal appearing basilar artery. Fl ow within the posterior cerebral arteries is normal and symmetric. No aneurysms are seen. CSF spaces: Ventricles are stable in size and shape. Basal cisterns are patent. No extra-axial flu id collections. Brain: No midline shift. No mass or mass effect. Robert-white matter interface appears intact. No abn ormal enhancement identified. Skull and face: Calvarium and facial bones appear intact, without suspicious lesions. Sinuses: Visualized sinuses and mastoids are clear. IMPRESSION: 1. Stable appearance of occlusion of the left middle cerebral artery distal to the M2 segment. 2. Stable CT evaluation of the head. Reviewed by: Brennen Sanderson MD on 04/30/2022 7:27 PM PDT Approved by: Brennen Sanderson MD on 04/30/2022 7:27 PM PDT Station ID: [id number]
--- NOTE | 2022-04-30 19:37 | CT Report ---
PROCEDURE: ANGIO NECK W INDICATIONS: stroke sx CONTRAST: IV CONTRAST: Optiray 320 ml: 80 PO CONTRAST: *NO PO CONTRAST TECHNIQUE: After the administration of intravenous contrast, 1.5 mm axial sections acquired from the aortic arch to the [place] of [place]. Coronal 3-D maximum intensity projection (MIP) and/or volume rendering ref ormats were then performed. For radiation dose reduction, the following was used: automated exposur e control, adjustment of mA and/or kV according to patient size. COMPARISON: 04/28/2022. FINDINGS: Image quality: Diagnostic. There is conventional anatomy of the great vessels off the aortic arch. Atherosclerotic calcification s noted at the origins of the great vessels without hemodynamically significant stenosis. Origins of the vertebral arteries are also patent without high-grade stenosis. Bilateral vertebral arteries are patent throughout the visualized course. Slight left vertebral artery dominance. Dense atheroscleroti c calcifications at the carotid bifurcation bilaterally with approximately 50% to 60% narrowing of th e proximal bilateral internal carotid arteries. No evidence for high-grade stenosis, occlusion, disse ction, or aneurysm. Atherosclerotic calcifications noted over the intracranial segments of the bilate ral internal carotid arteries without high-grade stenosis. Partially visualized occlusion of the dist al left middle cerebral artery better seen on dedicated CT angiogram of the head. Please see separate report. Visualized portion of the bilateral subclavian arteries are unremarkable. Soft tissues: Visualized neck soft tissues demonstrate no suspicious abnormalities. The thyroid is normal in size and there are no incidental findings. Bones: No suspicious bony lesions. No acute compression fractures. Multilevel cervical spondylosis, unchanged. Visualized cervical spine demonstrates straightening of cervical lordosis. This may be rel ated to positioning and/or muscle spasms. IMPRESSION: Stable appearance of 50-60% narrowing of the proximal internal carotid arteries bilaterally. Moderate atherosclerotic vascular calcifications. No evidence for high-grade occlusion of the visualized neck arterial vasculature. The estimate of stenosis included in the report of the imaging study was calculated using the NASCET method CLINICAL RECOMMENDATION STATEMENTS: In patients <35 years with an ITN detected on CT, MRI, or extrathyroidal ultrasound, the Committee re commends further evaluation with dedicated thyroid ultrasound if the nodule is "e1 cm and has no susp icious imaging features, and if the patient has normal life expectancy. In patients "e35 years with an ITN detected on CT, MRI, or extrathyroidal ultrasound, the Committee r ecommends further evaluation with dedicated thyroid ultrasound if the nodule is "e1.5 cm and has no s uspicious imaging features, and if the patient has normal life expectancy. (ACR, 2014) Reviewed by: Brennen Sanderson MD on 04/30/2022 7:35 PM PDT Approved by: Brennen Sanderson MD on 04/30/2022 7:35 PM PDT Station ID: [id number]
[2022-04-30 19:41] VITALS: BP 164/79
== END 2022-04-30 19:42 | disposition home or self-care (01) ==
LOC: ED 17:55
DX: I63.412 Cerebral infarction due to embolism of left middle cerebral artery (principal); R29.702 NIHSS score 2; I10 Essential (primary) hypertension
CPT/HCPCS: 36415; 36416; 70450; 70496; 70498; 80048; 85025; 85610; 99283; 99284; A9270; Q9967

== ENCOUNTER 2022-06-16 07:19 | Outpatient (CLI) | payer MEDICARE, OTHER ==
--- NOTE | 2022-06-16 10:57 | Ultrasound Report ---
PROCEDURE: Retroperitoneal Limited INDICATIONS: AAA TECHNIQUE: Real-time scanning was performed of the retroperitoneal organs, with image documentation. COMPARISON: Recommend annual ultrasound, limited, 02/25/2018. CT abdomen/pelvis without, 04/09/2022. FINDINGS: There are scattered atherosclerotic plaques in the abdominal aorta and iliac arteries. Proximal abdominal aorta: 2.4 x 2.3 cm. Image abdominal aorta: 1.9 x 1.9 cm. Distal abdominal aorta: 2.8 x 3.6 cm (previously 3.2 cm). Right common iliac artery: 0.9 x 1.0 cm Left common iliac artery: 0.9 x 1.0 cm IMPRESSION: 1. Mild distal abdominal aortic aneurysm, slightly increased. 2. Atherosclerosis. Reviewed by: Tavares Brush MD on 06/16/2022 10:56 AM PST Approved by: Tavares Brush MD on 06/16/2022 10:56 AM PST Station ID: [id number]
== END 2022-06-16 07:20 | disposition home or self-care (01) ==
LOC: DI 07:19
PROVIDERS: ATTEND Family Medicine
DX: I71.40 Abdominal aortic aneurysm, without rupture, unspecified (principal); I70.0 Atherosclerosis of aorta

== ENCOUNTER 2022-07-20 09:22 | Emergency (ER) | payer MEDICARE, OTHER ==
--- NOTE | 2022-07-20 10:49 | XRAY Report ---
PROCEDURE: Knee 3 View LT INDICATIONS: fell/slipped TECHNIQUE: 3 views of the left knee(s) were acquired. COMPARISON: 06/03/2021. Correlation is also made with the accompanying hip plain films. FINDINGS: Bones: No fractures or dislocations. No suspicious bony lesions. There is mild to moderate lateral and medial femorotibial joint space narrowing, with associated dege nerative change with subchondral sclerosis and osteophyte formation. On the sunrise view, there is mild lateral patellofemoral joint space narrowing, with associated rem odeling changes, including spurs along the margins of the patella. Soft tissues: There is a mild left knee joint effusion. No suspicious soft tissue calcifications. Atherosclerotic calcification is seen. IMPRESSION: Mild joint effusion. No acute bony abnormality is identified by plain film. Underlying degenerative changes are seen. Reviewed by: Mati Corrigan MD on 07/20/2022 9:48 AM [facility] Approved by: Mati Corrigan MD on 07/20/2022 9:48 AM [facility] Station ID: [id number]
--- NOTE | 2022-07-20 10:53 | XRAY Report ---
PROCEDURE: Hip w/Pelvis 2-3V LT INDICATIONS: fell to side; pain hip and knee TECHNIQUE: AP pelvis with lateral view(s) of the left hip(s). COMPARISON: 08-27-15. Correlation is also made with the accompanying knee plain films. FINDINGS: Bones: Chronic appearing lucency can be seen involving the left greater trochanter, with corticated m argins. No additional focal bony abnormalities can be seen. Pelvic ring appears intact. No suspiciou s bony lesions. Age-appropriate degenerative changes are seen. Soft tissues: The visualized bowel gas pattern is normal. No suspicious soft tissue calcifications. IMPRESSION: There is chronic appearing lucency involving the left greater trochanter. Please could r elate with focal tenderness. If clinically appropriate, please consider a follow-up dedicated CT for further evaluation. Reviewed by: Mati Corrigan MD on 07/20/2022 9:52 AM [facility] Approved by: Mati Corrigan MD on 07/20/2022 9:52 AM [facility] Station ID: [id number]
--- NOTE | 2022-07-20 12:24 | CT Report ---
PROCEDURE: PELVIS WO INDICATIONS: left hip possible fracture on xray TECHNIQUE: Noncontrast 3 mm axial sections acquired through the bony pelvis, with coronal and sagittal reformatt ing. For radiation dose reduction, the following was used: automated exposure control, adjustment of mA and/or kV according to patient size. COMPARISON: Correlation is made with hip plain films, 07/20/2022. Relation is made with prior abdome n and pelvis CT, 04/09/2022. FINDINGS: Image quality: Excellent. Bones: There is a comminuted, moderately displaced fracture seen of the left greater trochanter. The bone at this site appears lucent. No dislocation is seen. No additional focal bony abnormalities can be seen. Generalized degenerative changes are seen. Soft tissues: No dilated loops of small bowel are seen. No significant colonic abnormality can be se en. There is partial visualization of a distal abdominal aortic aneurysm, 3.37 m AP. Dense atheroscle rotic calcification can be seen. An apparent fibroid uterus can be seen. There is a fat-containing ri ght renal hernia. No enlarged lymph nodes are detected. IMPRESSION: Comminuted fracture of the left greater trochanter. At the fracture site, the bone appears lucent, and this may be related to a pathologic fracture. Additional findings: Abdominal aortic aneurysm partially seen Apparent fibroid uterus Fat-containing right renal hernia Reviewed by: Mati Corrigan MD on 07/20/2022 11:23 AM [facility] Approved by: Mati Corrigan MD on 07/20/2022 11:23 AM [facility] Station ID: [id number]
--- NOTE | 2022-07-20 13:33 | ED Physician Documentation ---
PD HPI LOWER EXT INJURY - Stated complaint Stated Complaint: FALL/LT LEG PX - Chief complaint Chief Complaint: Trauma Ext - History obtained from History obtained from: Patient - History of Present Illness PD HPI LOW EXT INJURY LOCATION: Left, Hip Type of injury: Fall Where injury occurred: Home Timing - onset: How many days ago (5) Timing - duration: Days (5) Timing - details: Abrupt onset, Still present (she tripped on a cord and fell to left side, striking hip and knee. Pain lateral left hip continues with walking. Using walker at home.) Worsened by: Moving, Palpating Associated symptoms: No: Weakness, Numbness, Swelling Contributing factors: No: Anticoagulated Similar symptoms before: Has not had sx before Review of Systems Constitutional: denies: Fever, Chills Nose: denies: Rhinorrhea / runny nose, Congestion Throat: denies: Sore throat Cardiac: denies: Chest pain / pressure Respiratory: denies: Dyspnea, Cough GI: denies: Abdominal Pain, Nausea, Vomiting Skin: denies: Abrasion (s) Musculoskeletal: denies: Back pain Neurologic: denies: Focal weakness, Numbness PD PAST MEDICAL HISTORY - Past Medical History Cardiovascular: Hypertension, Coronary artery disease, [place] Respiratory: None Neuro: None Endocrine/Autoimmune: None GI: None 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 HEENT: Macular degeneration Psych: None Musculoskeletal: None Derm: None - Past Surgical History Past Surgical History: Yes General: Appendectomy Cardiovascular: Coronary stent - Present Medications Home Medications: Ambulatory Orders Medication Instructions Recorded Confirmed Atorvastatin Calcium [Lipitor] 80 mg PO HS 06/16/13 04/28/22 Albuterol Sulf [Ventolin Hfa 1 - 2 puffs INH Q4HR PRN #1 inhaler 11/20/18 04/28/22 Inhaler] Gabapentin 1 tab PO QID 11/20/18 04/28/22 Pantoprazole [Protonix] 1 tab PO DAILY 11/20/18 04/28/22 traZODone [Desyrel] 2 tab PO QPM 11/20/18 04/28/22 Albuterol Sulfate [Albuterol 2 puffs IH QID #1 hfa.aer.ad 09/22/19 04/28/22 Sulfate Hfa] Alendronate [Fosamax] 1 tab PO PRN PRN 07/11/21 04/28/22 Aspirin [Aspirin EC] 81 mg PO DAILY 07/11/21 04/28/22 Calcium Carbonate/Vitamin D3 2 tab PO DAILY 07/11/21 04/28/22 [Calcium 600 mg-D3 10 Mcg Sfgl] Cholecalciferol (Vitamin D3) 5,000 unit PO DAILY 07/11/21 04/28/22 [Vitamin D3] D-Mannose [Azo D-Mannose] 500 mg PO DAILY 07/11/21 04/28/22 Ibuprofen 2 tab PO BID 07/11/21 04/28/22 Multivitamin 1 each PO DAILY 07/11/21 04/28/22 cilostazoL [Cilostazol] 1 tab PO BID 07/11/21 04/28/22 chlordiazePOXIDE [Librium] 25 mg PO Q6H PRN #12 cap 02/26/22 04/28/22 Furosemide [Lasix] 10 mg PO 04/28/22 Clopidogrel [Plavix] 75 mg PO DAILY #21 tablet 04/30/22 Acetaminophen [Acetaminophen Extra 500 mg PO QID PRN #50 tablet 07/20/22 Strength] Docusate Sodium 100Mg Capsule 100 mg PO DAILY #20 cap 07/20/22 [Colace 100Mg Capsule] Meloxicam [Mobic] 7.5 mg PO DAILY 10 Days #10 tablet 07/20/22 oxyCODONE [Roxicodone] 5 mg PO Q8H PRN #20 tablet 07/20/22 - Allergies Allergies/Adverse Reactions: Allergies Allergy/AdvReac Type Severity Reaction Status Date / Time clopidogrel bisulfate * Allergy Severe Rash Verified 07/20/22 09:49 [From Plavix] erythromycin base Allergy Mild Rash Verified 07/20/22 09:49 [Erythromycin Base] Penicillins Allergy Mild Rash Verified 07/20/22 09:49 spironolactone Allergy Mild Rash Verified 07/20/22 09:49 diazepam [From Valium] AdvReac Mild Anxiety Verified 07/20/22 09:49 - Social History Does the pt smoke?: No Smoking Status: Never smoker Does the pt drink ETOH?: Yes Does the pt have substance abuse?: No - Immunizations Immunizations are current?: Yes - POLST Patient has POLST: No PD ED PE NORMAL - Vitals Vital signs reviewed: Yes - General General: Alert and oriented X 3, No acute distress (no uncomfortable sitting in wheelchair in ED triage. ), Well developed/nourished - HEENT HEENT: Atraumatic - Neck Neck: Supple, no meningeal sign, No bony TTP - Back Back: No spinal TTP - Derm Derm: Normal color, Warm and dry - Extremities Extremities: Other (left lateral hip with local tenderness over the trochanter area. knee with mild tender lateral/anterior without effusion. ) - Neuro Neuro: Alert and oriented X 3, No motor deficit, No sensory deficit Results - Vitals Vitals: Vital Signs - 24 hr 07/20/22 07/20/22 09:45 13:44 Temperature 36.7 C 36.0 C L Heart Rate 73 76 Respiratory 18 16 Rate Blood Pressure 158/84 H 191/99 H O2 Saturation 97 97 Oxygen O2 Source Room air - Rads (name of study) knee xray Radiology: Prelim report reviewed (no fractures), See rad report hip xray Radiology: Prelim report reviewed (chronic changes at greater trochanter. suggest CT. ), See rad report pelvic CT/left hip Radiology: Prelim report reviewed (comminuted greater trochanter fracture. femoral shaft without fracture. ), See rad report PD Medical Decision Making - ED course Complexity details: reviewed results (trochanter fracture. can treat conservatively. She has walker at home. ), considered differential, d/w patient Departure - Departure Disposition: 01 Home, Self Care Clinical Impression: Fall from slip, trip, or stumble Qualifiers: Encounter type: initial encounter Qualified Code(s): W01.0XXA - Fall on same level from slipping, tripping and stumbling without subsequent striking against object, initial encounter Trochanteric fracture of femur Qualifiers: Encounter type: initial encounter Fracture type: closed Laterality: left Qualified Code(s): S72.102A - Unspecified trochanteric fracture of left femur, initial encounter for closed fracture Condition: Stable Record reviewed to determine appropriate education?: Yes Follow-Up: Ayde Humphries ARNP [Primary Care Provider] - [facility] [Provider Group] Prescriptions: Acetaminophen [Acetaminophen Extra Strength] 500 mg PO QID PRN #50 tablet PRN Reason: Pain Docusate Sodium 100Mg Capsule [Colace 100Mg Capsule] 100 mg PO DAILY #20 cap Meloxicam [Mobic] 7.5 mg PO DAILY 10 Days #10 tablet oxyCODONE [Roxicodone] 5 mg PO Q8H PRN #20 tablet PRN Reason: Pain Comments: Baljit do have a fracture of the trochanter of the left hip which is an attachment point for muscles and ligaments and not part of the main weightbearing structure of the hip. This would be treated conservatively with just decreased use and supported balance and weightbearing with walker. We can use some anti-inflammatories such as meloxicam once daily. For pain use Tylenol 4 times daily for the next week or 2. To that add oxycodone every 6-8 hours if needed for worse pain. Also use a daily stool softener during this time to reduce chance of constipation. Activity as tolerated with her walker. It would be good to ensure this is healing reasonably so follow-up with orthopedics in a about 1-1/2 weeks, call today or tomorrow for an appointment. I transmitted your prescriptions to [facility] pharmacy in [place]. I am prescribing a short course of narcotic pain medication for you. These are potentially dangerous and addictive medications that should be used carefully. These medications may constipate you. Take an mmhj-xkt-hpkwwwu stool softener such as docusate twice daily with plenty of water while taking these medications. If you go 24 hours without a bowel movement, take lvma-poo-fijfqnm MiraLAX, per package instructions. Do not drink or drive while taking these medications. If you received narcotic or sedating medications while in the emergency department do not drive for 24 hours. Store this medication in a safe, secure place and out of reach of children. It is a violation of federal law to give or sell this medication to another person or to use in a manner other than prescribed. The ED will not refill narcotic prescriptions, including prescriptions lost or stolen. You can dispose of unwanted medications at the [facility]'s office or at several pharmacies such as [facility]. Discharge Date/Time: 07/20/22 14:05
[2022-07-20] MEDS ORDERED: oxyCODONE 5 MG TABLET PO STA (13:45)
[2022-07-20] MEDS ORDERED: NAPROXEN 250 MG TABLET PO STA (13:45)
[2022-07-20] MEDS ORDERED: ACETAMINOPHEN 325 MG TABLET PO STA (13:45)
[2022-07-20 13:50] VITALS: BP 191/99
== END 2022-07-20 14:05 | disposition home or self-care (01) ==
LOC: ED 09:22
DX: S72.112A Displaced fracture of greater trochanter of left femur, initial encounter for closed fracture (principal); W01.0XXA Fall on same level from slipping, tripping and stumbling without subsequent striking against object, initial encounter; M25.462 Effusion, left knee; I10 Essential (primary) hypertension; I25.10 Atherosclerotic heart disease of native coronary artery without angina pectoris; I25.2 Old myocardial infarction
CPT/HCPCS: 72192; 73502; 73562; 99283; 99284; A9270

== ENCOUNTER 2022-07-22 20:30 | Emergency (ER) | payer MEDICARE, OTHER ==
--- NOTE | 2022-07-22 20:41 | ED Physician Documentation ---
PD HPI LOWER EXT INJURY - Stated complaint Stated Complaint: L LEG PX - History obtained from History obtained from: Patient, Family (daughter (in ED at bedside)) - History of Present Illness PD HPI LOW EXT INJURY LOCATION: Left, Hip Type of injury: Fall Where injury occurred: Home Timing - onset: How many weeks ago (1) Timing - details: Abrupt onset Improved by: Rest Worsened by: Moving, Palpating Contributing factors: No: Prior ortho surgery, Prosthetic joint Recently seen: Emergency Dept (2 days ago) - Additional information Additional information: Patient was treated and released from this emergency department 2 days ago with chief complaint of left hip pain patient per the ED MD chart from that visit, patient had fallen 5 days prior, and presented due to increasing difficulty with weightbearing on the left leg as well as ambulating with her walker. She was found on this recent ER visit to have a left greater trochanteric fracture seen on CT scan. Although it was a comminuted fracture, there was no evidence of a intertrochanteric or femoral neck fracture. Thus, she was discharged home. Patient presents again to this emergency department, daughter is at bedside. Patient and daughter say that patient is having difficulty getting up and out of her bed to an extent that they do not feel that she can continue to be cared for at home. The patient's daughter, for example, says that to get patient into the car and subsequently out of the car and into the emergency department, she required assistance from both the daughter as well as 2 other young strong family members. Patient says the pain medication that was prescribed is not controlling the pain. The pain medication is 5 mg oxycodone in the prescription says to take 1 every 8 hours as needed. Patient says she last took a dose at 8 AM, which is a little over 12 hours before this HPI. When I ask why she has waited so long between doses, she reiterates that she feels the pain medication does "nothing". Review of Systems Constitutional: reports: Reviewed and negative Cardiac: reports: Reviewed and negative Respiratory: reports: Reviewed and negative GI: reports: Reviewed and negative Musculoskeletal: reports: Joint pain, Pain with weight bearing. 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 HEENT: Macular degeneration Psych: None Musculoskeletal: None Derm: None - Past Surgical History Past Surgical History: Yes General: Appendectomy Cardiovascular: Coronary stent - Present Medications Home Medications: Ambulatory Orders Medication Instructions Recorded Confirmed Atorvastatin Calcium [Lipitor] 80 mg PO HS 06/16/13 04/28/22 Albuterol Sulf [Ventolin Hfa 1 - 2 puffs INH Q4HR PRN #1 inhaler 11/20/18 04/28/22 Inhaler] Gabapentin 1 tab PO QID 11/20/18 04/28/22 Pantoprazole [Protonix] 1 tab PO DAILY 11/20/18 04/28/22 traZODone [Desyrel] 2 tab PO QPM 11/20/18 04/28/22 Albuterol Sulfate [Albuterol 2 puffs IH QID #1 hfa.aer.ad 09/22/19 04/28/22 Sulfate Hfa] Alendronate [Fosamax] 1 tab PO PRN PRN 07/11/21 04/28/22 Aspirin [Aspirin EC] 81 mg PO DAILY 07/11/21 04/28/22 Calcium Carbonate/Vitamin D3 2 tab PO DAILY 07/11/21 04/28/22 [Calcium 600 mg-D3 10 Mcg Sfgl] Cholecalciferol (Vitamin D3) 5,000 unit PO DAILY 07/11/21 04/28/22 [Vitamin D3] D-Mannose [Azo D-Mannose] 500 mg PO DAILY 07/11/21 04/28/22 Ibuprofen 2 tab PO BID 07/11/21 04/28/22 Multivitamin 1 each PO DAILY 07/11/21 04/28/22 cilostazoL [Cilostazol] 1 tab PO BID 07/11/21 04/28/22 chlordiazePOXIDE [Librium] 25 mg PO Q6H PRN #12 cap 02/26/22 04/28/22 Furosemide [Lasix] 10 mg PO 04/28/22 Clopidogrel [Plavix] 75 mg PO DAILY #21 tablet 04/30/22 Acetaminophen [Acetaminophen Extra 500 mg PO QID PRN #50 tablet 07/20/22 Strength] Docusate Sodium 100Mg Capsule 100 mg PO DAILY #20 cap 07/20/22 [Colace 100Mg Capsule] Meloxicam [Mobic] 7.5 mg PO DAILY 10 Days #10 tablet 07/20/22 oxyCODONE [Roxicodone] 5 mg PO Q8H PRN #20 tablet 07/20/22 - Allergies Allergies/Adverse Reactions: Allergies Allergy/AdvReac Type Severity Reaction Status Date / Time clopidogrel bisulfate * Allergy Severe Rash Verified 07/22/22 20:42 [From Plavix] erythromycin base Allergy Mild Rash Verified 07/22/22 20:42 [Erythromycin Base] Penicillins Allergy Mild Rash Verified 07/22/22 20:42 spironolactone Allergy Mild Rash Verified 07/22/22 20:42 diazepam [From Valium] AdvReac Mild Anxiety Verified 07/22/22 20:42 - Social History Does the pt smoke?: No Smoking Status: Never smoker Does the pt drink ETOH?: Yes Does the pt have substance abuse?: No - Immunizations Immunizations are current?: Yes - POLST Patient has POLST: No PD ED PE NORMAL - Vitals Vital signs reviewed: Yes - General General: Alert and oriented X 3, No acute distress (at rest; appears to have painful discomfort with movement involving LLE, particularly at left hip), Well developed/nourished - Abdomen Abdomen: Soft, Non tender - Extremities Extremities: No edema PD ED PE EXPANDED - Extremities Extremities: Tenderness (left hip), Limited ROM (left hip) Results - Vitals Vitals: Vital Signs - 24 hr 07/22/22 07/22/22 07/22/22 20:34 21:40 22:40 Temperature 36.4 C L Heart Rate 84 84 Respiratory 16 16 17 Rate Blood Pressure 172/88 H 190/112 H O2 Saturation 98 98 07/23/22 07/23/22 07/23/22 02:50 03:48 04:58 Temperature Heart Rate 78 87 Respiratory 16 16 18 Rate Blood Pressure 177/89 H O2 Saturation 99 98 07/23/22 07/23/22 06:50 07:24 Temperature Heart Rate 77 Respiratory 17 16 Rate Blood Pressure 165/81 H O2 Saturation 98 Oxygen O2 Source Room air - Labs Labs: Laboratory Tests 07/23/22 07/23/22 07:42 07:42 WBC 20.7 H RBC 4.05 L Hgb 12.6 Hct 38.5 MCV 95.1 MCH 31.1 H MCHC 32.7 RDW 14.1 Plt Count 381 MPV 8.5 Neut # (Auto) 18.1 H Lymph # (Auto) 1.3 L [place] # (Auto) 0.8 Eos # (Auto) 0.1 Baso # (Auto) 0.1 Absolute Nucleated RBC 0.00 Nucleated RBC % 0.0 Manual Slide Review Indicated Platelet Estimate NORMAL (130-450,000) Platelet Morphology NORMAL APPEARANCE RBC Morph Micro Appear NORMAL APPEARANCE Sodium 136 Potassium 3.5 Chloride 101 Carbon Dioxide 25 Anion Gap 10.0 BUN 15 Creatinine 0.6 Estimated GFR (MDRD) 96 Glucose 114 H Calcium 9.3 PD Medical Decision Making - ED course Complexity details: reviewed old records, reviewed results, re-evaluated patient, considered differential, d/w patient, d/w family ED course: I discussed options with patient and her daughter (in ED at bedside). At this time, there are no indications for admission into the hospital. I pointed out that the pain medication is a lower-dose and less-frequent schedule than typical for this medication, although increasing amount per dose and/or frequency will increase risk of side effects including unsteadiness, falls. After much discussion , patient and daughter continue to express that they do not feel patient is going to be adequately taken care of at home. The plan is to hold p atient until AM for SW consult so that options appropriate to this situation can be better considered and discussed. Care of patient is turned over to oncoming ED physician at end of my shift pending SW consult
[2022-07-22] MEDS ORDERED: oxyCODONE 5 MG TABLET PO STA (21:31)
[2022-07-22] MEDS ORDERED: LOPERAMIDE 2 MG CAPSULE PO STA (22:18)
[2022-07-22] MEDS ORDERED: DIPHENOX/ATROPINE 2.5/0.025 MG TABLET PO STA (22:24)
[2022-07-23] MEDS ORDERED: oxyCODONE 5 MG TABLET PO STA (07:03)
[2022-07-23 07:46] LABS: BASOPHILS # (AUTO) 0.1 10^3/uL (0.0-0.1); BASOPHILS % (AUTO) 0.4 %; EOSINOPHILS # (AUTO) 0.1 10^3/uL (0.0-0.7); EOSINOPHILS % (AUTO) 0.6 %; HCT - HEMATOCRIT 38.5 % (37.0-47.0); HGB - HEMOGLOBIN 12.6 g/dL (12.0-16.0); LYMPHOCYTES # (AUTO) 1.3 10^3/uL (1.5-3.5); LYMPHOCYTES % (AUTO) 6.1 %; MEAN CORPUSCULAR HEMOGLOBIN 31.1 pg (27.0-31.0); MEAN CORPUSCULAR HGB CONC 32.7 g/dL (32.0-36.0); MEAN CORPUSCULAR VOLUME 95.1 fL (81.0-99.0); MEAN PLATELET VOLUME 8.5 fL (7.9-10.8); MONOCYTES # (AUTO) 0.8 10^3/uL (0.0-1.0); NEUTROPHILS # (AUTO) 18.1 10^3/uL (1.5-6.6); NEUTROPHILS % (AUTO) 87.6 %; PLT - PLATELET COUNT 381 10^3/uL (130-450); RED BLOOD COUNT 4.05 10^6/uL (4.20-5.40); RED CELL DISTRIBUTION WIDTH 14.1 % (12.0-15.0); WHITE BLOOD COUNT 20.7 x10^3/uL (4.8-10.8)
[2022-07-23 07:54] LABS: CALCIUM 9.3 mg/dL (8.5-10.3); CREATININE 0.6 mg/dL (0.4-1.0); POTASSIUM 3.5 mmol/L (3.5-5.0)
[2022-07-23 07:55] LABS: SLIDE REVIEW? Indicated
[2022-07-23 08:08] LABS: PLATELET ESTIMATE, MANUAL NORMAL (130-450,000) (NORMAL); PLATELET MORPHOLOGY NORMAL APPEARANCE (NORMAL); RBC MORPHOLOGY (MULTIPLE) NORMAL APPEARANCE (NORMAL)
--- NOTE | 2022-07-23 08:19 | XRAY Report ---
PROCEDURE: Hip w/Pelvis 2-3V LT INDICATIONS: L greater troch fx, inc pain TECHNIQUE: AP pelvis with lateral view(s) of the left hip(s). COMPARISON: 07/20/2022. FINDINGS: Bones: Again noted is comminuted fracture of left greater trochanter with slight superior and medial displacement of greater trochanteric fragment not significantly changed in appearance compared to pre vious pelvic CT study. No new fracture or dislocation. No evidence of avascular necrosis of femoral h ead. Pelvic ring appears intact. No suspicious bony lesions. Soft tissues: The visualized bowel gas pattern is normal. No suspicious soft tissue calcifications. IMPRESSION: Stable appearing slightly displaced and comminuted left greater trochanteric fracture. No new fracture or dislocation. No evidence of avascular necrosis. Reviewed by: Gerard Alas MD on 07/23/2022 8:17 AM PST Approved by: Gerard Alas MD on 07/23/2022 8:17 AM PST Station ID: [id number]
[2022-07-23 10:15] LABS: B. PARAPERTUSSIS- RESP PCR PAN NOT DETECTED; B. PERTUSSIS- RESP PCR PANEL NOT DETECTED; C. PNEUMONIAE- RESP PCR PANEL NOT DETECTED; CORONAVIRUS 229E-RESP PCR NOT DETECTED; CORONAVIRUS HKU1-RESP PCR NOT DETECTED; CORONAVIRUS NL63-RESP PCR NOT DETECTED; CORONAVIRUS OC43-RESP PCR NOT DETECTED; HUMAN METAPNEUMOVIRUS NOT DETECTED; INFLUENZA A- RESP PCR PANEL NOT DETECTED; INFLUENZA B - RESP PCR PANEL NOT DETECTED; M. PNEUMONIAE- RESP PCR PANEL NOT DETECTED; PARAINFLUENZA VIRUS 1 NOT DETECTED; PARAINFLUENZA VIRUS 2 NOT DETECTED; PARAINFLUENZA VIRUS 3 NOT DETECTED; PARAINFLUENZA VIRUS 4 NOT DETECTED; RHINOVIRUS/ENTEROVIRUS NOT DETECTED; RSV- RESP PCR PANEL NOT DETECTED; SARS-CoV-2 -RESP PCR PANEL NOT DETECTED
[2022-07-23] MEDS ORDERED: HYDROmorphone 2 MG TABLET PO STA (10:47)
--- NOTE | 2022-07-23 10:50 | ED Physician Documentation ---
ED Addendum - Addendum Addendum: 07/23/22 10:48 Patient was signed out to me by Dr. Armas awaiting social work consult. best worker evaluated the patient and the family would like to take her home with different pain medication. They will obtain a commode for home as well. They have family to help care for her. Patient is sitting up at the edge of the bed. Pain well controlled. Reviewed her CT findings from her visit yesterday and inform them of the possible pathological fracture. Recommend that she follow-up closely with orthopedics and her primary care provider. Patient and family counseled regarding signs and symptoms for which I believe and urgent re- evaluation would be necessary. Patient with good understanding of and agreement to plan and is comfortable going home at this time This document was made in part using voice recognition software. While efforts are made to proofread this document, sound alike and grammatical errors may occur. Departure - Departure Disposition: 01 Home, Self Care Clinical Impression: Greater trochanter fracture Qualifiers: Encounter type: initial encounter Fracture type: closed Fracture alignment: displaced Laterality: left Qualified Code(s): S72.112A - Displaced fracture of greater trochanter of left femur, initial encounter for closed fracture Condition: Good Instructions: ED Fx Lower Ext Follow-Up: LAMINE VARMA PA [Primary Care Provider] - [facility] [Provider Group] [facility] [Provider Group] Prescriptions: HYDROmorphone [Dilaudid] 2 mg PO Q6H PRN #14 tablet PRN Reason: pain Comments: Please follow-up with the orthopedist of your choice for further care. You may bear weight as tolerated. You will need to use a walker at home. A bedside commode should help as well. Your prescriptions were sent to [facility]. Your CT scan does show a lucency at the bone near the fracture site, could be possibly related to a pathological fracture, this can be further evaluated by orthopedics. I am prescribing a short course of narcotic pain medication for you. These are potentially dangerous and addictive medications that should be used carefully. These medications may constipate you. Take an tpvh-enz-dijnemm stool softener (docusate) twice daily with plenty of water while taking these medications. If you go 24 hours without a bowel movement, take mwum-sio-zjhrsnb miralax, per package instructions. Do not drink or drive while taking these medications. If you received narcotic or sedating medications while in the emergency department, do not drive for 24 hours. Store this medication in a safe, secure place and out of reach of children. It is a violation of federal law to give or sell this medication to another person or to use in a manner other than prescribed. The ED will not refill narcotic prescriptions, including prescriptions lost or stolen. To dispose of unwanted medications: 1. [facility] [address] in [place] has a medication drop box. They accept prescription medications (in pill form) Wednesday through Wednesday 9:00 a.m. to 5:00 p.m. 2. The [facility] [employer] accepts prescription medications (in pill form only) for disposal year round. Call for more information. 3. Contact the [facility] for the next [facility] sponsored prescription drug collection event. , [phone], or [phone]; L hip CT Scan FINDINGS: Image quality: Excellent. Bones: There is a comminuted, moderately displaced fracture seen of the left greater trochanter. The bone at this site appears lucent. No dislocation is seen. No additional focal bony abnormalities can be seen. Generalized degenerative changes are seen. Soft tissues: No dilated loops of small bowel are seen. No significant colonic abnormality can be seen. There is partial visualization of a distal abdominal aortic aneurysm, 3.37 m AP. Dense atherosclerotic calcification can be seen. An apparent fibroid uterus can be seen. There is a fat- containing right renal hernia. No enlarged lymph nodes are detected. IMPRESSION: Comminuted fracture of the left greater trochanter. At the fracture site, the bone appears lucent, and this may be related to a pathologic fracture. Additional findings: Abdominal aortic aneurysm partially seen Apparent fibroid uterus Fat-containing right renal hernia
[2022-07-23 10:57] VITALS: BP 160/99
== END 2022-07-23 11:08 | disposition home or self-care (01) ==
LOC: ED 20:30
DX: S72.112D Displaced fracture of greater trochanter of left femur, subsequent encounter for closed fracture with routine healing (principal); W18.30XD Fall on same level, unspecified, subsequent encounter; Z20.822 Contact with and (suspected) exposure to COVID-19; T40.2X1A Poisoning by other opioids, accidental (unintentional), initial encounter; T39.011A Poisoning by aspirin, accidental (unintentional), initial encounter; R41.0 Disorientation, unspecified; T50.905A Adverse effect of unspecified drugs, medicaments and biological substances, initial encounter; Y92.009 Unspecified place in unspecified non-institutional (private) residence as the place of occurrence of the external cause; S42.252D Displaced fracture of greater tuberosity of left humerus, subsequent encounter for fracture with routine healing
CPT/HCPCS: 36415; 73502; 80048; 80053; 80307; 83690; 85025; 87633; 93005; 99283; 99284; A9270; G0480; 80320; 80329

== ENCOUNTER 2022-07-23 18:15 | Outpatient (CLI) | payer MEDICARE, OTHER | END 2022-07-23 18:16 | disposition critical access hospital (66) | LOC: EMS 18:15 | DX: R41.0 Disorientation, unspecified (principal); T40.2X1A Poisoning by other opioids, accidental (unintentional), initial encounter; T39.011A Poisoning by aspirin, accidental (unintentional), initial encounter | CPT/HCPCS: A0425; A0429 ==

== ENCOUNTER 2022-07-23 18:29 | Emergency (ER) | payer MEDICARE, OTHER ==
--- NOTE | 2022-07-23 18:36 | ED Physician Documentation ---
History of Present Illness - Stated complaint Stated Complaint: ACCIDENTAL OD - History obtained from History obtained from: Patient, EMS - Additonal information Additional information: 81-year-old woman recently seen for a greater trochanter fracture of the left hip went home earlier today. She was out of her element having been up all night and then slept for a few hours at home. She got up at 4 PM and was confused because of everything that had transpired and actually took extra of her medications. Specifically she took 7 x 2 mg hydromorphones and somewhere from 3 to 6 x 500 mg aspirin with caffeine. Advised to come in by poison control. She is feeling okay. Her hip still hurts though. 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 HEENT: Macular degeneration Psych: None Musculoskeletal: None Derm: None - Past Surgical History Past Surgical History: Yes General: Appendectomy Cardiovascular: Coronary stent - Present Medications Home Medications: Ambulatory Orders Medication Instructions Recorded Confirmed Atorvastatin Calcium [Lipitor] 80 mg PO HS 06/16/13 04/28/22 Albuterol Sulf [Ventolin Hfa 1 - 2 puffs INH Q4HR PRN #1 inhaler 11/20/18 04/28/22 Inhaler] Gabapentin 1 tab PO QID 11/20/18 04/28/22 Pantoprazole [Protonix] 1 tab PO DAILY 11/20/18 04/28/22 traZODone [Desyrel] 2 tab PO QPM 11/20/18 04/28/22 Albuterol Sulfate [Albuterol 2 puffs IH QID #1 hfa.aer.ad 09/22/19 04/28/22 Sulfate Hfa] Alendronate [Fosamax] 1 tab PO PRN PRN 07/11/21 04/28/22 Aspirin [Aspirin EC] 81 mg PO DAILY 07/11/21 04/28/22 Calcium Carbonate/Vitamin D3 2 tab PO DAILY 07/11/21 04/28/22 [Calcium 600 mg-D3 10 Mcg Sfgl] Cholecalciferol (Vitamin D3) 5,000 unit PO DAILY 07/11/21 04/28/22 [Vitamin D3] D-Mannose [Azo D-Mannose] 500 mg PO DAILY 07/11/21 04/28/22 Ibuprofen 2 tab PO BID 07/11/21 04/28/22 Multivitamin 1 each PO DAILY 07/11/21 04/28/22 cilostazoL [Cilostazol] 1 tab PO BID 07/11/21 04/28/22 chlordiazePOXIDE [Librium] 25 mg PO Q6H PRN #12 cap 02/26/22 04/28/22 Furosemide [Lasix] 10 mg PO 04/28/22 Clopidogrel [Plavix] 75 mg PO DAILY #21 tablet 04/30/22 Acetaminophen [Acetaminophen Extra 500 mg PO QID PRN #50 tablet 07/20/22 Strength] Docusate Sodium 100Mg Capsule 100 mg PO DAILY #20 cap 07/20/22 [Colace 100Mg Capsule] Meloxicam [Mobic] 7.5 mg PO DAILY 10 Days #10 tablet 07/20/22 oxyCODONE [Roxicodone] 5 mg PO Q8H PRN #20 tablet 07/20/22 HYDROmorphone [Dilaudid] 2 mg PO Q6H PRN #14 tablet 07/23/22 - Allergies Allergies/Adverse Reactions: Allergies Allergy/AdvReac Type Severity Reaction Status Date / Time clopidogrel bisulfate * Allergy Severe Rash Verified 07/22/22 20:42 [From Plavix] erythromycin base Allergy Mild Rash Verified 07/22/22 20:42 [Erythromycin Base] Penicillins Allergy Mild Rash Verified 07/22/22 20:42 spironolactone Allergy Mild Rash Verified 07/22/22 20:42 diazepam [From Valium] AdvReac Mild Anxiety Verified 07/22/22 20:42 - Social History Does the pt smoke?: No Smoking Status: Never smoker Does the pt drink ETOH?: Yes Does the pt have substance abuse?: No - Immunizations Immunizations are current?: Yes - POLST Patient has POLST: No PD ED PE NORMAL - Vitals Vital signs reviewed: Yes - General General: Alert and oriented X 3, No acute distress - HEENT HEENT: Other (Small pupils) - Cardiac Cardiac: RRR, No murmur - Respiratory Respiratory: No respiratory distress, Clear bilaterally - Abdomen Abdomen: Non tender - Neuro Neuro: Alert and oriented X 3, Normal speech Results - Vitals Vitals: Vital Signs - 24 hr 07/23/22 07/23/22 18:37 21:57 Temperature 36.6 C Heart Rate 95 100 Respiratory 19 17 Rate Blood Pressure 181/88 H 170/102 H O2 Saturation 95 97 Oxygen O2 Source Room air - EKG (time done) 1842 Rate: Rate (enter#) (88) Rhythm: NSR Alexander: Normal Intervals: Prolonged CO QRS: Normal Ischemia: Q waves (anterior). No: ST elevation c/w ischemia, ST depression - Labs Labs: Laboratory Tests 07/23/22 07/23/22 07/23/22 18:40 18:40 19:45 WBC 17.7 H RBC 4.16 L Hgb 12.6 Hct 40.4 MCV 97.1 MCH 30.3 MCHC 31.2 L RDW 14.3 Plt Count 381 MPV 9.2 Neut # (Auto) 15.4 H Lymph # (Auto) 1.2 L [place] # (Auto) 0.8 Eos # (Auto) 0.0 Baso # (Auto) 0.1 Absolute Nucleated RBC 0.00 Nucleated RBC % 0.0 Sodium 137 Potassium 3.8 Chloride 100 L Carbon Dioxide 22 Anion Gap 15.0 H BUN 18 Creatinine 0.7 Estimated GFR (MDRD) 80 L Glucose 126 H Calcium 9.5 Total Bilirubin 1.2 H AST 25 ALT 22 Alkaline Phosphatase 98 Total Protein 7.2 Albumin 3.8 Globulin 3.4 Albumin/Globulin Ratio 1.1 Lipase 28 Salicylates < 6.0 < 6.0 Acetaminophen < 10 L < 10 L Ethyl Alcohol < 5.0 PD Medical Decision Making - ED course ED course: Per poison control recommendations we will check labs and also she will need a 4-hour Tylenol level which would be at 8 PM and every 2 hours salicylate levels until downtrending. Subsequent labs were again negative for Tylenol and aspirin. She remained well- appearing with normal vital signs in the emergency department. Disposition will be a problem though, she was not tolerating at home today due to her hip fracture, the supportive daughter is at the bedside and she had made arrangements for her to go to [facility] tomorrow morning. She is not a safe discharge and will stay in the department tonight for transfer to [facility] tomorrow. Care to the overnight emergency physician at shift change pending discharge in the morning. Departure - Departure Clinical Impression: Fracture of greater tuberosity of humerus Qualifiers: Encounter type: initial encounter Fracture type: closed Fracture alignment: displaced Laterality: left Qualified Code(s): S42.252A - Displaced fracture of greater tuberosity of left humerus, initial encounter for closed fracture Accidental overdose Qualifiers: Encounter type: initial encounter Qualified Code(s): T50.901A - Poisoning by unspecified drugs, medicaments and biological substances, accidental (unintentional), initial encounter Condition: Stable
[2022-07-23 18:47] LABS: BASOPHILS # (AUTO) 0.1 10^3/uL (0.0-0.1); BASOPHILS % (AUTO) 0.5 %; EOSINOPHILS % (AUTO) 0.2 %; HCT - HEMATOCRIT 40.4 % (37.0-47.0); HGB - HEMOGLOBIN 12.6 g/dL (12.0-16.0); LYMPHOCYTES # (AUTO) 1.2 10^3/uL (1.5-3.5); LYMPHOCYTES % (AUTO) 6.6 %; MEAN CORPUSCULAR HEMOGLOBIN 30.3 pg (27.0-31.0); MEAN CORPUSCULAR HGB CONC 31.2 g/dL (32.0-36.0); MEAN CORPUSCULAR VOLUME 97.1 fL (81.0-99.0); MEAN PLATELET VOLUME 9.2 fL (7.9-10.8); MONOCYTES # (AUTO) 0.8 10^3/uL (0.0-1.0); MONOCYTES % (AUTO) 4.6 %; NEUTROPHILS # (AUTO) 15.4 10^3/uL (1.5-6.6); NEUTROPHILS % (AUTO) 86.8 %; PLT - PLATELET COUNT 381 10^3/uL (130-450); RED BLOOD COUNT 4.16 10^6/uL (4.20-5.40); RED CELL DISTRIBUTION WIDTH 14.3 % (12.0-15.0); WHITE BLOOD COUNT 17.7 x10^3/uL (4.8-10.8)
[2022-07-23 19:03] LABS: ACETAMINOPHEN < 10 ug/mL (10-30); ALBUMIN 3.8 g/dL (3.2-5.5); ALBUMIN/GLOBULIN RATIO 1.1 (1.0-2.2); ALKALINE PHOSPHATASE 98 IU/L (42-121); ALT ALANINE AMINOTRANSFERASE 22 IU/L (10-60); AST ASPARTATE AMINOTRANSFERASE 25 IU/L (10-42); BILIRUBIN,TOTAL 1.2 mg/dL (0.2-1.0); BUN - BLOOD UREA NITROGEN 18 mg/dL (6-20); CALCIUM 9.5 mg/dL (8.5-10.3); CARBON DIOXIDE - CO2 22 mmol/L (21-32); CHLORIDE 100 mmol/L (101-111); CREATININE 0.7 mg/dL (0.4-1.0); ETOH - ETHANOL < 5.0 mg/dL; GFR - MDRD 80 (>89); GLUCOSE 126 mg/dL (70-100); LIPASE 28 U/L (22-51); POTASSIUM 3.8 mmol/L (3.5-5.0); SALICYLATE < 6.0 mg/dL; SODIUM 137 mmol/L (135-145); TOTAL PROTEIN 7.2 g/dL (6.7-8.2)
[2022-07-23 20:31] LABS: ACETAMINOPHEN < 10 ug/mL (10-30); SALICYLATE < 6.0 mg/dL
[2022-07-23] MEDS ORDERED: traZODone 50 MG TABLET PO STA (21:08)
[2022-07-23] MEDS ORDERED: HYDROmorphone 2 MG TABLET PO PRN (21:46)
[2022-07-24] MEDS ORDERED: HYDROmorphone 1 MG/ML CARPUJECT IVP STA (01:20)
[2022-07-24 09:44] VITALS: BP 156/89
--- NOTE | 2022-07-24 10:22 | ED Physician Documentation ---
ED Addendum - Addendum Addendum: 07/24/22 10:19 The patient's daughter is here states the [facility] is ready to take the patient. Paperwork has been submitted by her primary care and they are ready for her. The patient is awake alert and conversant. She states she is doing little bit better now this morning. She does not have much pain with just laying in bed. She does have some passive range of motion of the hip without much discomfort earlier this morning. The hospital is full. The patient might have met criteria for observation or hospitalization due to the altered mentation and the intractable pain. No beds are available however. Disposition: [facility] condition. Diagnoses: 1. Intractable pain due to trochanteric fracture on the left hip 2. Medication side effects from pain medication causing confusion 3. Accidental overdose on pain medication.
== END 2022-07-24 10:45 | disposition home or self-care (01) ==
LOC: EDUNIT# → ED 18:29
DX: T40.2X1A Poisoning by other opioids, accidental (unintentional), initial encounter (principal); T39.011A Poisoning by aspirin, accidental (unintentional), initial encounter; R41.0 Disorientation, unspecified; T50.905A Adverse effect of unspecified drugs, medicaments and biological substances, initial encounter; Y92.009 Unspecified place in unspecified non-institutional (private) residence as the place of occurrence of the external cause; S42.252D Displaced fracture of greater tuberosity of left humerus, subsequent encounter for fracture with routine healing
CPT/HCPCS: 36415; 80053; 80307; 83690; 85025; 93005; 99284; A9270; G0480; 80320; 80329

== ENCOUNTER 2022-08-09 08:00 | Outpatient (CLI) | payer MEDICARE, OTHER ==
[2022-08-09 17:30] LABS: CORONAVIRUS 229E-RESP PCR NOT DETECTED; CORONAVIRUS HKU1-RESP PCR NOT DETECTED; CORONAVIRUS NL63-RESP PCR NOT DETECTED; CORONAVIRUS OC43-RESP PCR NOT DETECTED
[2022-08-09 17:38] LABS: B. PARAPERTUSSIS- RESP PCR PAN NOT DETECTED; B. PERTUSSIS- RESP PCR PANEL NOT DETECTED; C. PNEUMONIAE- RESP PCR PANEL NOT DETECTED; HUMAN METAPNEUMOVIRUS NOT DETECTED; INFLUENZA A- RESP PCR PANEL NOT DETECTED; INFLUENZA B - RESP PCR PANEL NOT DETECTED; M. PNEUMONIAE- RESP PCR PANEL NOT DETECTED; PARAINFLUENZA VIRUS 1 NOT DETECTED; PARAINFLUENZA VIRUS 2 NOT DETECTED; PARAINFLUENZA VIRUS 3 NOT DETECTED; PARAINFLUENZA VIRUS 4 NOT DETECTED; RHINOVIRUS/ENTEROVIRUS NOT DETECTED; RSV- RESP PCR PANEL NOT DETECTED; SARS-CoV-2 -RESP PCR PANEL DETECTED
== END 2022-08-09 23:59 | disposition home or self-care (01) ==
LOC: LAB.R 08:00
PROVIDERS: ATTEND Internal Medicine
DX: U07.1 COVID-19 (principal)
CPT/HCPCS: 87633

== ENCOUNTER 2022-08-14 09:32 | Outpatient (CLI) | payer MEDICARE, OTHER ==
[2022-08-18 15:09] LABS: CREATININE URINE 42.7 mg/dL (Not Estab.); CREATININE URINE 24HR 598 mg/24 hr (800-1800); PROTEIN TOTAL URINE 7.8 mg/dL (Not Estab.); PROTEIN URINE 24HR 109 mg/24 hr (30-150)
== END 2022-08-14 09:33 | disposition home or self-care (01) ==
LOC: LAB.R 09:32
DX: C90.00 Multiple myeloma not having achieved remission (principal)
CPT/HCPCS: 82570; 84156; 84166

== ENCOUNTER 2023-05-12 11:59 | Emergency (ER) | payer MEDICARE, OTHER ==
[2023-05-12 12:15] VITALS: O2SAT 98
[2023-05-12 12:48] LABS: BASOPHILS # (AUTO) 0.1 10^3/uL (0.0-0.1); BASOPHILS % (AUTO) 1.1 %; EOSINOPHILS # (AUTO) 0.2 10^3/uL (0.0-0.7); EOSINOPHILS % (AUTO) 2.2 %; HCT - HEMATOCRIT 43.3 % (37.0-47.0); HGB - HEMOGLOBIN 13.9 g/dL (12.0-16.0); LYMPHOCYTES % (AUTO) 14.1 %; MEAN CORPUSCULAR HEMOGLOBIN 32.1 pg (27.0-31.0); MEAN CORPUSCULAR HGB CONC 32.1 g/dL (32.0-36.0); MEAN PLATELET VOLUME 8.2 fL (7.9-10.8); MONOCYTES # (AUTO) 0.5 10^3/uL (0.0-1.0); NEUTROPHILS # (AUTO) 5.4 10^3/uL (1.5-6.6); NEUTROPHILS % (AUTO) 74.2 %; PLT - PLATELET COUNT 278 10^3/uL (130-450); RED BLOOD COUNT 4.33 10^6/uL (4.20-5.40); RED CELL DISTRIBUTION WIDTH 13.6 % (12.0-15.0); WHITE BLOOD COUNT 7.3 x10^3/uL (4.8-10.8)
[2023-05-12 13:01] LABS: ALBUMIN 4.3 g/dL (3.2-5.5); ALBUMIN/GLOBULIN RATIO 1.8 (1.0-2.2); BILIRUBIN,TOTAL 0.6 mg/dL (0.2-1.0); CALCIUM 10.4 mg/dL (8.5-10.3); CREATININE 0.7 mg/dL (0.6-1.3); POTASSIUM 4.1 mmol/L (3.5-4.5); TOTAL PROTEIN 6.7 g/dL (6.4-8.9)
[2023-05-12] MEDS ORDERED: ONDANSETRON 4 MG/2 ML VIAL IVP STA (14:25)
[2023-05-12] MEDS ORDERED: HYDROmorphone 1 MG/ML CARPUJECT IVP STA ×2 (14:25→15:46)
--- NOTE | 2023-05-12 14:26 | ED Physician Documentation ---
PD HPI ABD PAIN - Stated complaint Stated Complaint: ABD PX - Chief complaint Chief Complaint: Abd Pain - History obtained from History obtained from: Patient - Additional information Additional information: 82-year-old woman who had appendectomy as a child. Then subsequently in her later adult life had some wound dehiscence and subsequently a scar revision. Otherwise no abdominal surgeries. For the last 3 days has had right lower quadrant pain radiating to the right lateral abdomen. It is associated with some retching. She has chronic diarrhea which is unchanged from prior no urinary complaints or fevers. 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 HEENT: Macular degeneration Psych: None Musculoskeletal: None Derm: None - Past Surgical History Past Surgical History: Yes General: Appendectomy Cardiovascular: Coronary stent - Present Medications Home Medications: Ambulatory Orders Medication Instructions Recorded Confirmed Atorvastatin Calcium [Lipitor] 80 mg PO HS 06/16/13 04/28/22 Albuterol Sulf [Ventolin Hfa 1 - 2 puffs INH Q4HR PRN #1 inhaler 11/20/18 04/28/22 Inhaler] Gabapentin 1 tab PO QID 11/20/18 04/28/22 Pantoprazole [Protonix] 1 tab PO DAILY 11/20/18 04/28/22 traZODone [Desyrel] 2 tab PO QPM 11/20/18 04/28/22 Albuterol Sulfate [Albuterol 2 puffs IH QID #1 hfa.aer.ad 09/22/19 04/28/22 Sulfate Hfa] Alendronate [Fosamax] 1 tab PO PRN PRN 07/11/21 04/28/22 Aspirin [Aspirin EC] 81 mg PO DAILY 07/11/21 04/28/22 Calcium Carbonate/Vitamin D3 2 tab PO DAILY 07/11/21 04/28/22 [Calcium 600 mg-D3 10 Mcg Sfgl] Cholecalciferol (Vitamin D3) 5,000 unit PO DAILY 07/11/21 04/28/22 [Vitamin D3] D-Mannose [Azo D-Mannose] 500 mg PO DAILY 07/11/21 04/28/22 Ibuprofen 2 tab PO BID 07/11/21 04/28/22 Multivitamin 1 each PO DAILY 07/11/21 04/28/22 cilostazoL [Cilostazol] 1 tab PO BID 07/11/21 04/28/22 chlordiazePOXIDE [Librium] 25 mg PO Q6H PRN #12 cap 02/26/22 04/28/22 Furosemide [Lasix] 10 mg PO 04/28/22 Clopidogrel [Plavix] 75 mg PO DAILY #21 tablet 04/30/22 Acetaminophen [Acetaminophen Extra 500 mg PO QID PRN #50 tablet 07/20/22 Strength] Docusate Sodium 100Mg Capsule 100 mg PO DAILY #20 cap 07/20/22 [Colace 100Mg Capsule] Meloxicam [Mobic] 7.5 mg PO DAILY 10 Days #10 tablet 07/20/22 oxyCODONE [Roxicodone] 5 mg PO Q8H PRN #20 tablet 07/20/22 HYDROmorphone [Dilaudid] 2 mg PO Q6H PRN #14 tablet 07/23/22 HYDROcod/ACETAM 5/325 [[place] 5/325] 1 - 2 tab PO Q6H PRN #15 tablet 05/12/23 Ondansetron Odt [Zofran] 4 mg TL Q6H PRN #10 tablet 05/12/23 - Allergies Allergies/Adverse Reactions: Allergies Allergy/AdvReac Type Severity Reaction Status Date / Time clopidogrel bisulfate * Allergy Severe Rash Verified 07/22/22 20:42 [From Plavix] erythromycin base Allergy Mild Rash Verified 07/22/22 20:42 [Erythromycin Base] Penicillins Allergy Mild Rash Verified 07/22/22 20:42 spironolactone Allergy Mild Rash Verified 07/22/22 20:42 diazepam [From Valium] AdvReac Mild Anxiety Verified 07/22/22 20:42 - Social History Does the pt smoke?: No Smoking Status: Never smoker Does the pt drink ETOH?: Yes Does the pt have substance abuse?: No - Immunizations Immunizations are current?: Yes - POLST Patient has POLST: No PD ED PE NORMAL - Vitals Vital signs reviewed: Yes - General General: Alert and oriented X 3, No acute distress - Cardiac Cardiac: RRR, No murmur - Respiratory Respiratory: No respiratory distress, Clear bilaterally - Abdomen Abdomen: Normal bowel sounds, Soft, Other (Incision with subcutaneous scarring in the right lower quadrant, no tenderness.) - Back Back: No CVA TTP, Other (No CVA tenderness nor a shingles rash.) - Neuro Neuro: Alert and oriented X 3, Normal speech Results - Vitals Vitals: Vital Signs - 24 hr 05/12/23 05/12/23 05/12/23 12:03 12:08 14:08 Temperature 36.2 C L 36.5 C Heart Rate 44 L 44 L 80 Respiratory 18 18 16 Rate Blood Pressure 143/79 H 143/79 H 160/90 H O2 Saturation 98 98 98 Oxygen O2 Source Room air - Labs Labs: Laboratory Tests 05/12/23 05/12/23 12:43 12:43 WBC 7.3 RBC 4.33 Hgb 13.9 Hct 43.3 MCV 100.0 H MCH 32.1 H MCHC 32.1 RDW 13.6 Plt Count 278 MPV 8.2 Neut # (Auto) 5.4 Lymph # (Auto) 1.0 L [place] # (Auto) 0.5 Eos # (Auto) 0.2 Baso # (Auto) 0.1 Absolute Nucleated RBC 0.00 Nucleated RBC % 0.0 Sodium 139 Potassium 4.1 Chloride 106 Carbon Dioxide 26 Anion Gap 7.0 BUN 12 Creatinine 0.7 Estimated GFR (MDRD) 80 L Glucose 106 H Calcium 10.4 H Total Bilirubin 0.6 AST 23 ALT 26 Alkaline Phosphatase 128 H Total Protein 6.7 Albumin 4.3 Globulin 2.4 Albumin/Globulin Ratio 1.8 Lipase 33 PD Medical Decision Making - ED course ED course: 82-year-old woman presents with abdominal pain, benign exam. Work-up in the emergency department shows normal CBC, CMP showing mild hypercalcemia and very modest elevation of alkaline phosphatase with otherwise normal liver enzymes. CT of the abdomen pelvis showing some evidence of mild biliary obstruction without gallstones or choledocholithiasis. She cannot have MRCP at least here as she has a pacemaker in place. We also discussed the incidental small AAA and she was already aware of it and undergoing surveillance for it. I will email her primary care physician and she will need follow-up with GI for either MRCP in a Hospital capable of doing an MRI in a patient with a pacemaker, we are not, or ERCP I would think. My concern would still be for bile duct cancer given the findings. Departure - Departure Disposition: 01 Home, Self Care Clinical Impression: Abdominal pain Qualifiers: Abdominal location: right upper quadrant Qualified Code(s): R10.11 - Right upper quadrant pain Condition: Good Record reviewed to determine appropriate education?: Yes Prescriptions: HYDROcod/ACETAM 5/325 [[place] 5/325] 1 - 2 tab PO Q6H PRN #15 tablet PRN Reason: Pain Ondansetron Odt [Zofran] 4 mg TL Q6H PRN #10 tablet PRN Reason: Nausea / Vomiting Comments: You were seen today for abdominal pain that we found is that your bile ducts looked inflamed. Under normal circumstances we would get an MRI, but cannot be done here due to your pacemaker. I will email Dyllan Baugh and have him refer you to GI for further evaluation and treatment. Return for any new or worsening symptoms. As discussed, you also have the small AAA which just needs to be surveillance every year. I sent your prescription electronically to [facility] in [place]. You should call Dr. Baugh's office to arrange a follow-up appointment to close the loop. I am prescribing a short course of narcotic pain medication for you. These are potentially dangerous and addictive medications that should be used carefully. These medications may constipate you. Take an [id number]-[id number] stool softener (docusate) twice daily with plenty of water while taking these medications. If you go 24 hours without a bowel movement, take [id number] miralax, per package instructions. Do not drink or drive while taking these medications. If you received narcotic or sedating medications while in the emergency department, do not drive for 24 hours. Store this medication in a safe, secure place and out of reach of children. It is a violation of federal law to give or sell this medication to another person or to use in a manner other than prescribed. The ED will not refill narcotic prescriptions, including prescriptions lost or stolen. To dispose of unwanted medications: 1. [facility] provides a drop box for medication in pill form only (no liquids) 8:00 am to 4:30 p.m. Wednesday-Wednesday in the lobby of the [facility], [address] [place] [address]. Empty pills into ziplock bag before disposal. Call [phone] for information. 2.[employer] is a free service available to all [facility] residents. Go to [email or web address] Note that many narcotic pain relievers also contain Tylenol/acetaminophen. Please ensure that your total dose of acetaminophen from all sources does not exceed 3 g (3000 mg) per day. Forms: PCP List
--- NOTE | 2023-05-12 15:37 | CT Report ---
PROCEDURE: ABDOMEN/PELVIS W INDICATIONS: IV only, right lower quadrant pain CONTRAST: 100mL Omni 300 TECHNIQUE: After the administration of IV contrast, 5 mm thick sections acquired from the diaphragms to the symp hysis. 5 mm thick coronal and sagittal reformats were acquired. For radiation dose reduction, the f ollowing was used: automated exposure control, adjustment of mA and/or kV according to patient size. COMPARISON: 04/09/2022 FINDINGS: Image quality: Excellent. Lung bases and heart: Bilateral lung bases are clear. Heart size is enlarged, no pericardial effusion . Pacemaker leads are seen in right atrium and right ventricle. Liver: No solid mass. Well-circumscribed subcentimeter hypodensities are again noted in right and lef t hepatic lobe and likely represent hepatic cysts series 2 images 21 and 30 Gallbladder and biliary tree: Gallbladder is markedly distended. No calcified stone is seen. There is intrahepatic biliary ductal dilatation and dilatation of common bile that measures up to 1.5 cm in d iameter. No gross choledocholithiasis is seen. Spleen: No splenomegaly. Small hypodensities in posterior aspect of spleen are seen. Pancreas: Mild dilatation of pancreatic duct measures up to 5 mm in diameter is seen.. Adrenals: 1.8 x 1.5 cm left adrenal nodule is noted and measures 2.5 Hounsfield units in density on p revious noncontrast CT of abdomen and pelvis in 2021 likely represent benign adrenal adenoma.. Kidneys and ureters: Nonobstructing stones are seen in bilateral kidneys measures up to 7 mm in size in mid to lower pole left kidney. No hydronephrosis or hydroureter. Bowel and peritoneum: There is no evidence of bowel obstruction. Suggestion of diffuse small bowel wa ll and gastric wall thickening. No significant colonic wall thickening. No significant mesenteric fat stranding. No abscess collection. Appendix is not definitively seen in right lower quadrant abdomen. No gross inflammatory changes are seen in right lower quadrant abdomen. No free fluid or free air. Lymph nodes: No central or retroperitoneal adenopathy. Vessels: Infrarenal abdominal aortic aneurysm is seen measures up to 3.1 cm in largest AP diameter.. Severe atherosclerotic calcifications are noted throughout abdominal aorta and bilateral iliac arteri es. PELVIS Reproductive organs: Unremarkable. Bladder: No abnormal wall thickening, accounting for underdistension. Pelvic lymph nodes: No pelvic adenopathy by size criteria. Bones: No aggressive osseous abnormality. There is prior internal fixation of left proximal femur. De generative disc disease throughout lower thoracic and lumbar spine is seen. Other: No significant ventral or inguinal hernia. IMPRESSION: 1. Markedly distended urinary bladder with intra and extrahepatic biliary ductal dilatation. No galls tones or choledocholithiasis is seen. No significant gallbladder wall thickening or pericholecystic f luid. Mild dilatation of pancreatic duct. Finding may representgallbladder wall contractility disorde r. Nuclear medicine HIDA scan or MRCP can be done for further evaluation. 2. Gastric and small bowel wall thickening with mild fluid distention of small bowel loops concerning for gastroenteritis with mild ileus. No focal transition zone. No secondary CT signs of acute append icitis. No abscess collection. No free fluid or free air. 3. Incidentally noted of possible left adrenal adenoma as above. 4. Tiny hypodensities in liver likely represent small cysts. 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 5. Infrarenal abdominal aortic aneurysm measures up to 3.1 cm in largest AP diameter. Severe atherosc lerotic disease. Reviewed by: Gerard Alas MD on 05/12/2023 3:36 PM PDT Approved by: Gerard Alas MD on 05/12/2023 3:36 PM PDT Station ID: [id number]
[2023-05-12 16:33] VITALS: BP 168/88
[2023-05-12] MEDS ORDERED: iohexoL-300 100 ML VIAL IVP ONE (20:18)
== END 2023-05-12 16:24 | disposition home or self-care (01) ==
LOC: ED 11:59
DX: R10.11 Right upper quadrant pain (principal); I71.40 Abdominal aortic aneurysm, without rupture, unspecified; Z95.0 Presence of cardiac pacemaker
CPT/HCPCS: 36415; 74177; 80053; 83690; 85025; 96374; 96375; 96376; 99284; J1170; Q9967

== ENCOUNTER 2023-05-24 11:35 | Outpatient (CLI) | payer MEDICARE, OTHER | END 2023-05-24 11:36 | disposition home or self-care (01) | LOC: LAB 11:35 | PROVIDERS: ATTEND Internal Medicine | DX: K83.8 Other specified diseases of biliary tract (principal); R79.89 Other specified abnormal findings of blood chemistry; R97.8 Other abnormal tumor markers | CPT/HCPCS: 36415; 82378; 86301 ==

== ENCOUNTER 2023-06-03 07:36 | Outpatient (CLI) | payer MEDICARE, OTHER | END 2023-06-03 23:59 | disposition critical access hospital (66) | LOC: EMS 07:36 | DX: R53.1 Weakness (principal); R10.31 Right lower quadrant pain; M79.605 Pain in left leg; M25.512 Pain in left shoulder | CPT/HCPCS: A0425; A0429 ==

== ENCOUNTER 2023-06-03 07:51 | Emergency (ER) | payer MEDICARE, OTHER ==
--- NOTE | 2023-06-03 08:23 | ED Physician Documentation ---
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 HEENT: Macular degeneration Psych: None Musculoskeletal: None Derm: None - Past Surgical History Past Surgical History: Yes General: Appendectomy Cardiovascular: Coronary stent - Present Medications Home Medications: Ambulatory Orders Medication Instructions Recorded Confirmed Atorvastatin Calcium [Lipitor] 80 mg PO HS 06/16/13 06/03/23 Albuterol Sulf [Ventolin Hfa 1 - 2 puffs INH Q4HR PRN #1 inhaler 11/20/18 06/03/23 Inhaler] Gabapentin 1 tab PO QID 11/20/18 06/03/23 Pantoprazole [Protonix] 1 tab PO DAILY 11/20/18 06/03/23 traZODone [Desyrel] 2 tab PO QPM 11/20/18 06/03/23 Albuterol Sulfate [Albuterol 2 puffs IH QID #1 hfa.aer.ad 09/22/19 06/03/23 Sulfate Hfa] Ibuprofen 2 tab PO BID 07/11/21 06/03/23 Multivitamin 1 each PO DAILY 07/11/21 06/03/23 Acetaminophen [Acetaminophen Extra 500 mg PO QID PRN #50 tablet 07/20/22 06/03/23 Strength] Meloxicam [Mobic] 7.5 mg PO DAILY 10 Days #10 tablet 07/20/22 06/03/23 HYDROcod/ACETAM 5/325 [[place] 5/325] 1 - 2 tab PO Q6H PRN #15 tablet 05/12/23 06/03/23 Ondansetron Odt [Zofran] 4 mg TL Q6H PRN #10 tablet 05/12/23 06/03/23 HYDROcodone/ACET 10/325 [[place] 10 1 each PO Q6H PRN #25 tablet 06/03/23 mg/325 mg] dexAMETHasone [Decadron] 4 mg PO DAILY #5 tablet 06/03/23 - Allergies Allergies/Adverse Reactions: Allergies Allergy/AdvReac Type Severity Reaction Status Date / Time clopidogrel bisulfate * Allergy Severe Rash Verified 06/03/23 08:06 [From Plavix] erythromycin base Allergy Mild Rash Verified 06/03/23 08:06 [Erythromycin Base] Penicillins Allergy Mild Rash Verified 06/03/23 08:06 spironolactone Allergy Mild Rash Verified 06/03/23 08:06 diazepam [From Valium] AdvReac Mild Anxiety Verified 06/03/23 08:06 - Social History Does the pt smoke?: No Smoking Status: Never smoker Does the pt drink ETOH?: Yes Does the pt have substance abuse?: No - Immunizations Immunizations are current?: Yes - POLST Patient has POLST: No Results - Vitals Vitals: Vital Signs - 24 hr 06/03/23 06/03/23 08:01 09:48 Temperature 36.7 C Heart Rate 86 79 Respiratory 18 14 Rate Blood Pressure 170/99 H 123/109 H O2 Saturation 98 97 Oxygen O2 Source Room air - Labs Labs: Laboratory Tests 06/03/23 06/03/23 06/03/23 08:51 08:51 10:32 WBC 13.4 H RBC 4.07 L Hgb 12.9 Hct 40.2 MCV 98.8 MCH 31.7 H MCHC 32.1 RDW 13.3 Plt Count 216 MPV 9.3 Neut # (Auto) Not Reportable Lymph # (Auto) Not Reportable [place] # (Auto) Not Reportable Eos # (Auto) Not Reportable Baso # (Auto) Not Reportable Absolute Nucleated RBC Not Reportable Total Counted 100 Band Neuts % (Manual) 0 Abnorm Lymph % (Manual) 0 Nucleated RBC % Not Reportable Neutrophils # (Manual) 11.5 H Lymphocytes # (Manual) 0.9 L Monocytes # (Manual) 0.8 Eosinophils # (Manual) 0.1 Basophils # (Manual) 0.0 Differential Comment MANUAL DIFFERENTIAL WBC Morphology NORMAL APPEARANCE Platelet Estimate NORMAL (130-450,000) Platelet Morphology NORMAL APPEARANCE RBC Morph Micro Appear NORMAL APPEARANCE Sodium 132 L Potassium 3.4 L Chloride 96 L Carbon Dioxide 27 Anion Gap 9.0 BUN 10 Creatinine 0.5 L Estimated GFR (MDRD) 118 Glucose 108 H Calcium 9.5 Magnesium 1.4 L Total Bilirubin 0.9 AST 74 H ALT 110 H Alkaline Phosphatase 162 H Total Protein 6.4 Albumin 3.6 Globulin 2.8 Albumin/Globulin Ratio 1.3 Lipase 49 Urine Color ORANGE Urine Clarity HAZY Urine pH 6.0 Ur Specific [place] 1.020 Urine Protein 100 H Urine Glucose (UA) NEGATIVE Urine Ketones 15 H Urine Occult Blood TRACE-INTA Urine Nitrite NEGATIVE Urine Bilirubin NEGATIVE Urine Urobilinogen 1 (NORMAL) Ur Leukocyte Esterase SMALL H Urine RBC 0-5 Urine WBC 6-10 H Ur Squamous Epith Cells FEW Squamous Urine Bacteria Few Ur Microscopic Review INDICATED Urine Culture Comments INDICATED Departure - Departure Disposition: 01 Home, Self Care Clinical Impression: Acute pain of left hip Condition: Stable Record reviewed to determine appropriate education?: Yes Follow-Up: Dyllan Baugh MD [Primary Care Provider] - Prescriptions: dexAMETHasone [Decadron] 4 mg PO DAILY #5 tablet HYDROcodone/ACET 10/325 [[place] 10 mg/325 mg] 1 each PO Q6H PRN #25 tablet PRN Reason: Pain 5-7 Comments: We can try changing your pain medicine from the current oxycodone to hydrocodone to see if that does better for you. It is a 10 mg tablets so would be 1 tablet 4 times daily as needed for pain. For milder pain you can use acetaminophen 500 to 650 mg 4 times daily. We can try an anti-inflammatory for the short-term as well. I prescribed Decadron steroid anti-inflammatory for 5 days. I would suggest calling your orthopedist and have a follow-up appointment. See if considerations such as some of the arthritis in the hip or the some of the prior fracture fragments could be now rubbing on areas that are causing pain. See if they have ideas of other interventions (injections or such). I sent a prescription to [facility] pharmacy. I am prescribing a short course of narcotic pain medication for you. These are potentially dangerous and addictive medications that should be used carefully. These medications may constipate you. Take an guzy-oqz-[id number] stool softener such as docusate twice daily with plenty of water while taking these medications. If you go 24 hours without a bowel movement, take rtwc-xwe-[id number] MiraLAX, per package instructions. Do not drink or drive while taking these medications. If you received narcotic or sedating medications while in the emergency department do not drive for 24 hours. Store this medication in a safe, secure place and out of reach of children. It is a violation of federal law to give or sell this medication to another person or to use in a manner other than prescribed. The ED will not refill narcotic prescriptions, including prescriptions lost or stolen. You can dispose of unwanted medications at the [facility]'s office or at several pharmacies such as [facility]. Take a daily stool softener while on the pain medicines so you do not get constipated. Forms: PCP List
[2023-06-03] MEDS ORDERED: HYDROmorphone 1 MG/ML CARPUJECT IVP STA ×2 (08:26→09:41)
[2023-06-03] MEDS ORDERED: KETOROLAC 15 MG/ML VIAL IVP STA (08:26)
--- NOTE | 2023-06-03 08:57 | XRAY Report ---
PROCEDURE: Hip w/Pelvis 2-3V LT INDICATIONS: left hip pain few days. prior hip repair TECHNIQUE: AP pelvis with lateral view(s) of the left hip(s). COMPARISON: X-ray left hip 07/23/2022 FINDINGS: Bones: No acute fractures or dislocations. Postsurgical changes from left intertrochanteric fracture fixation. The hardware appears intact without surrounding fracture or lucency. Mild degenerative padma nges of the right hip. No suspicious bony lesions. Soft tissues: No suspicious soft tissue calcifications or masses. Atherosclerotic vascular calcifica tions. IMPRESSION: No acute bony abnormality. Postoperative changes from left hip ORIF without evidence of subluxation. Reviewed by: Adolph Rosario MD on 06/03/2023 8:56 AM PST Approved by: Adolph Rosario MD on 06/03/2023 8:56 AM PST Station ID: [id number]
[2023-06-03 08:59] LABS: BASOPHILS % (AUTO) 0.4 %; EOSINOPHILS % (AUTO) 0.1 %; HCT - HEMATOCRIT 40.2 % (37.0-47.0); HGB - HEMOGLOBIN 12.9 g/dL (12.0-16.0); LYMPHOCYTES % (AUTO) 4.2 %; MEAN CORPUSCULAR HEMOGLOBIN 31.7 pg (27.0-31.0); MEAN CORPUSCULAR HGB CONC 32.1 g/dL (32.0-36.0); MEAN CORPUSCULAR VOLUME 98.8 fL (81.0-99.0); MEAN PLATELET VOLUME 9.3 fL (7.9-10.8); MONOCYTES % (AUTO) 7.1 %; PLT - PLATELET COUNT 216 10^3/uL (130-450); RED BLOOD COUNT 4.07 10^6/uL (4.20-5.40); RED CELL DISTRIBUTION WIDTH 13.3 % (12.0-15.0); WHITE BLOOD COUNT 13.4 x10^3/uL (4.8-10.8)
[2023-06-03 09:15] LABS: ABNORMAL LYMPHS % (MANUAL) 0 %; BAND NEUTROPHILS % (MANUAL) 0 %
[2023-06-03 09:18] LABS: ALBUMIN 3.6 g/dL (3.2-5.5); ALBUMIN/GLOBULIN RATIO 1.3 (1.0-2.2); BILIRUBIN,TOTAL 0.9 mg/dL (0.2-1.0); CALCIUM 9.5 mg/dL (8.5-10.3); CREATININE 0.5 mg/dL (0.6-1.3); MAGNESIUM 1.4 mg/dL (1.7-2.3); POTASSIUM 3.4 mmol/L (3.5-4.5); TOTAL PROTEIN 6.4 g/dL (6.4-8.9)
[2023-06-03 09:43] LABS: EOSINOPHILS # (MANUAL) 0.1 10^3/uL (0-0.7); LYMPHOCYTES # (MANUAL) 0.9 10^3/uL (1.5-3.5); LYMPHOCYTES % (MANUAL) 7 %; MONOCYTES # (MANUAL) 0.8 10^3/uL (0.0-1.0); NEUTROPHILS # (MANUAL) 11.5 10^3/uL (1.5-6.6)
[2023-06-03 09:44] LABS: PLATELET ESTIMATE, MANUAL NORMAL (130-450,000) (NORMAL); PLATELET MORPHOLOGY NORMAL APPEARANCE (NORMAL); RBC MORPHOLOGY (MULTIPLE) NORMAL APPEARANCE (NORMAL); WBC MORPHOLOGY (MULTIPLE) NORMAL APPEARANCE (NORMAL)
[2023-06-03 09:45] LABS: DIFFERENTIAL COMMENT MANUAL DIFFERENTIAL
[2023-06-03 09:54] VITALS: O2SAT 97
[2023-06-03 10:40] LABS: BILIRUBIN,URINE NEGATIVE (NEGATIVE); GLUCOSE, URINE (UA) NEGATIVE (NEGATIVE); KETONES,URINE (UA) 15 mg/dL (NEGATIVE); LEUKOCYTE ESTERASE, URINE SMALL (NEGATIVE); NITRITE,URINE NEGATIVE (NEGATIVE); OCCULT BLOOD,URINE TRACE-INTA (NEGATIVE); PROTEIN,URINE 100 mg/dL (NEGATIVE); UROBILINOGEN,URINE 1 (NORMAL) E.U./dL (NORMAL)
[2023-06-03 10:50] LABS: CLARITY,URINE HAZY (CLEAR)
[2023-06-03 11:01] LABS: RBC,URINE 0-5 /HPF (0-5); SQUAMOUS EPITHELIAL CELL,UR FEW Squamous (<= Few)
[2023-06-03 11:02] LABS: BACTERIA,URINE Few /HPF (None Seen)
[2023-06-03 11:31] VITALS: BP 142/88
== END 2023-06-03 11:31 | disposition home or self-care (01) ==
LOC: EDUNIT# → ED 07:51
DX: M25.552 Pain in left hip (principal); I10 Essential (primary) hypertension
CPT/HCPCS: 36415; 73502; 80053; 81001; 83690; 83735; 85025; 87086; 96374; 96375; 96376; 99284; J1170; 81003

== ENCOUNTER 2023-08-13 10:39 | Emergency (ER) | payer MEDICARE, OTHER ==
--- NOTE | 2023-08-13 11:40 | ED Physician Documentation ---
PD HPI LOWER EXT INJURY - Stated complaint Stated Complaint: GLF - Chief complaint Chief Complaint: Ext Problem - Additional information Additional information: 82-year-old female presents emergency department for left lower extremity pain a nd swelling. Patient reports that she had a mechanical fall about 2 weeks ago, she was walking down the stairs with her arms fall she fell down the last stair onto her left side. She has well-healing bruising to the left side of her face scattered well-healing bruises to her bilateral lower extremities denies any pain to her face or elsewhere in her body but feels like her left lower extremity starting to get more swollen and painful. She denies any use of blood thinners or antiplatelets. Left lower extremity she reports the skin is feeling more tight and she is having a harder time ambulating on it although she is able to ambulate without any difficulty. Denies any fevers or chills. 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 HEENT: Macular degeneration Psych: None Musculoskeletal: None Derm: None - Past Surgical History Past Surgical History: Yes General: Appendectomy Cardiovascular: Coronary stent - Present Medications Home Medications: Ambulatory Orders Medication Instructions Recorded Confirmed Atorvastatin Calcium [Lipitor] 80 mg PO HS 06/16/13 06/03/23 Albuterol Sulf [Ventolin Hfa 1 - 2 puffs INH Q4HR PRN #1 inhaler 11/20/18 06/03/23 Inhaler] Gabapentin 1 tab PO QID 11/20/18 06/03/23 Pantoprazole [Protonix] 1 tab PO DAILY 11/20/18 06/03/23 traZODone [Desyrel] 2 tab PO QPM 11/20/18 06/03/23 Albuterol Sulfate [Albuterol 2 puffs IH QID #1 hfa.aer.ad 09/22/19 06/03/23 Sulfate Hfa] Ibuprofen 2 tab PO BID 07/11/21 06/03/23 Multivitamin 1 each PO DAILY 07/11/21 06/03/23 Acetaminophen [Acetaminophen Extra 500 mg PO QID PRN #50 tablet 07/20/22 06/03/23 Strength] Meloxicam [Mobic] 7.5 mg PO DAILY 10 Days #10 tablet 07/20/22 06/03/23 HYDROcod/ACETAM 5/325 [C[place]ril 5/325] 1 - 2 tab PO Q6H PRN #15 tablet 05/12/23 06/03/23 Ondansetron Odt [Zofran] 4 mg TL Q6H PRN #10 tablet 05/12/23 06/03/23 HYDROcodone/ACET 10/325 [[place] 10 1 each PO Q6H PRN #25 tablet 06/03/23 mg/325 mg] dexAMETHasone [Decadron] 4 mg PO DAILY #5 tablet 06/03/23 - Allergies Allergies/Adverse Reactions: Allergies Allergy/AdvReac Type Severity Reaction Status Date / Time clopidogrel bisulfate * Allergy Severe Rash Verified 08/13/23 10:48 [From Plavix] erythromycin base Allergy Mild Rash Verified 08/13/23 10:48 [Erythromycin Base] Penicillins Allergy Mild Rash Verified 08/13/23 10:48 spironolactone Allergy Mild Rash Verified 08/13/23 10:48 diazepam [From Valium] AdvReac Mild Anxiety Verified 08/13/23 10:48 - Social History Does the pt smoke?: No Smoking Status: Never smoker Does the pt drink ETOH?: Yes Does the pt have substance abuse?: No - Immunizations Immunizations are current?: Yes - POLST Patient has POLST: No PD ED PE NORMAL - Vitals Vital signs reviewed: Yes - General General: Alert and oriented X 3, No acute distress, Well developed/nourished - HEENT HEENT: PERRL, EOMI, Other (Well-healing bruises to left side of her face without any swelling) - Neck Neck: No bony TTP - Cardiac Cardiac: RRR, No murmur, Strong equal pulses - Respiratory Respiratory: No respiratory distress, Clear bilaterally - Derm Derm: Other (Scattered bruising to left face bilateral lower extremities more bruising on the left lower leg with erythema surrounding what appears to be a large hematoma to connelly) - Extremities Extremities: No deformity, Other (2+ pitting edema to left lower extremity, No pitting edema to right lower extremity.) Results - Vitals Vitals: Vital Signs - 24 hr 08/13/23 08/13/23 10:44 13:00 Temperature 36.4 C L Heart Rate 80 63 Respiratory 20 20 Rate Blood Pressure 130/76 151/98 H O2 Saturation 100 97 Oxygen O2 Source Room air - Rads (name of study) RLE venous duplex Relevant Findings:: Final report received, EMP independent interpretation of test (No DVT, 5cm fluid collection to anterior connelly.) PD Medical Decision Making - ED course ED course: 82 yo female here with left lower extremity swelling after experiencing a fall about a week ago. Venous duplex was completed to rule out DVT which was found to be negative. Patient was told to go home continue to elevate leg above her heart and to start using compression stockings to help with the swelling. She is given strict return precautions and told to follow-up with primary care provider. Departure - Departure Disposition: Home, Self Care Clinical Impression: Hematoma of left lower extremity Qualifiers: Encounter type: initial encounter Qualified Code(s): S80.12XA - Contusion of left lower leg, initial encounter Condition: Good Instructions: ED Hematoma Comments: We have completed an ultrasound of your left lower extremity to rule out DVT which came back negative. As we discussed I would recommend keeping your left leg elevated above your heart to help with the swelling and uses your compression stockings that you have at home as well. Apply ice as needed for 20 minutes at a time to that hematoma and do some gentle massaging to help your body reabsorb the section of blood collection. Please come back to the emergency department for starting develop any fevers or chills, worsening pain, worsening swelling or redness or any other concerning symptoms. Forms: PCP List Discharge Date/Time: 08/13/23 13:02
[2023-08-13 13:02] VITALS: BP 151/98; O2SAT 97
--- NOTE | 2023-08-13 13:07 | Ultrasound Report ---
PROCEDURE: Duplex Ext Veins Left INDICATIONS: LLE swelling TECHNIQUE: Real-time imaging, as well as color and pulse Doppler interrogation, were performed of the lower extr emity deep veins from the inguinal ligament to the popliteal fossa. Attempted visualization of the ca lf veins was performed. COMPARISON: None. FINDINGS: The deep veins are normally compressible, and free of intraluminal thrombus. Color and pu lse Doppler demonstrate normal phasic intraluminal flow. There is normal augmentation response to di stal compression maneuver. There is a 5 cm fluid collection a region of recent injury involving the lateral margin of the left l ower leg/calf which likely represents a postsurgical hematoma. IMPRESSION: No deep venous thrombosis of the visualized lower extremity. Reviewed by: Susana Stevens MD, PhD on 08/13/2023 1:06 PM PST Approved by: Susana Stevens MD, PhD on 08/13/2023 1:06 PM [facility] Station ID: [id number]
== END 2023-08-13 13:02 | disposition home or self-care (01) ==
LOC: ED 10:39
DX: S80.12XA Contusion of left lower leg, initial encounter (principal); W10.9XXA Fall (on) (from) unspecified stairs and steps, initial encounter
CPT/HCPCS: 99283; 99284

== ENCOUNTER 2023-09-07 12:33 | Emergency (ER) | payer MEDICARE, OTHER ==
[2023-09-07 12:45] VITALS: BP 131/84; O2SAT 99
--- NOTE | 2023-09-07 13:47 | XRAY Report ---
PROCEDURE: Tib/Fib LT INDICATIONS: fall, pain TECHNIQUE: 2 views of the tibia and fibula were acquired. COMPARISON: None. FINDINGS: Bones: No displaced fibular or tibial shaft fracture. Soft tissues: Vascular calcifications. Partially seen ankle degenerative changes and calcaneal enthe sopathy. Possible small soft tissue dystrophic calcifications also present. IMPRESSION: No acute osseous abnormality. If there is high concern for occult injury, consider repeat radiography or cross-sectional imaging. Reviewed by: Amilcar Jay MD on 09/07/2023 1:46 PM PST Approved by: Amilcar Jay MD on 09/07/2023 1:46 PM PST Station ID: [id number]
--- NOTE | 2023-09-07 14:30 | ED Physician Documentation ---
PD HPI LOWER EXT INJURY - Stated complaint Stated Complaint: LT FOOT PX/SWELLING - Chief complaint Chief Complaint: Ext Problem - History obtained from History obtained from: Patient - History of Present Illness PD HPI LOW EXT INJURY LOCATION: Left, Lower leg Type of injury: Fall (anterior lower leg contusion with small laceration from fall a month ago. Was slow healing with local swelling. Has had increased swelling/ pain/ redness of the area the past few days. 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 HEENT: Macular degeneration Psych: None Musculoskeletal: None Derm: None - Past Surgical History Past Surgical History: Yes General: Appendectomy Cardiovascular: Coronary stent - Present Medications Home Medications: Ambulatory Orders Medication Instructions Recorded Confirmed Atorvastatin Calcium [Lipitor] 80 mg PO HS 06/16/13 06/03/23 Albuterol Sulf [Ventolin Hfa 1 - 2 puffs INH Q4HR PRN #1 inhaler 11/20/18 06/03/23 Inhaler] Gabapentin 1 tab PO QID 11/20/18 06/03/23 Pantoprazole [Protonix] 1 tab PO DAILY 11/20/18 06/03/23 traZODone [Desyrel] 2 tab PO QPM 11/20/18 06/03/23 Albuterol Sulfate [Albuterol 2 puffs IH QID #1 hfa.aer.ad 09/22/19 06/03/23 Sulfate Hfa] Ibuprofen 2 tab PO BID 07/11/21 06/03/23 Multivitamin 1 each PO DAILY 07/11/21 06/03/23 Acetaminophen [Acetaminophen Extra 500 mg PO QID PRN #50 tablet 07/20/22 06/03/23 Strength] Meloxicam [Mobic] 7.5 mg PO DAILY 10 Days #10 tablet 07/20/22 06/03/23 Ondansetron Odt [Zofran] 4 mg TL Q6H PRN #10 tablet 05/12/23 06/03/23 dexAMETHasone [Decadron] 4 mg PO DAILY #5 tablet 06/03/23 Doxycycline Hyclate 100 mg PO BID 7 Days #14 cap 09/07/23 Mupirocin 2% Oint [Bactroban 2% 1 applic TOP TID #15 gm 09/07/23 Oint] - Allergies Allergies/Adverse Reactions: Allergies Allergy/AdvReac Type Severity Reaction Status Date / Time clopidogrel bisulfate * Allergy Severe Rash Verified 09/07/23 12:44 [From Plavix] erythromycin base Allergy Mild Rash Verified 09/07/23 12:44 [Erythromycin Base] Penicillins Allergy Mild Rash Verified 09/07/23 12:44 spironolactone Allergy Mild Rash Verified 09/07/23 12:44 diazepam [From Valium] AdvReac Mild Anxiety Verified 09/07/23 12:44 - Social History Does the pt smoke?: No Smoking Status: Never smoker Does the pt drink ETOH?: Yes Does the pt have substance abuse?: No - Immunizations Immunizations are current?: Yes - POLST Patient has POLST: No PD ED PE NORMAL - Vitals Vital signs reviewed: Yes - General General: Alert and oriented X 3, No acute distress, Well developed/nourished - Derm Derm: Normal color, Warm and dry - Extremities Extremities: Other (anterior lower tibial area with focal swelling that has some redness around it. There is some bruising noted below it. No redness extension proximally. No calf tenderness. The area has minimal fluctuance. ) - Neuro Neuro: Alert and oriented X 3, No motor deficit, No sensory deficit Results - Vitals Vitals: Oxygen O2 Source Room air PD Medical Decision Making - ED course Complexity details: reviewed results (xray shows no fx nor fbs. ), considered differential (has had an hematoma/contusion for amonth and is getting more swollen and [ainful now the past few days. Presume infection. ), d/w patient Departure - Departure Disposition: 01 Home, Self Care Clinical Impression: Hematoma of lower extremity, Wound infection Condition: Stable Record reviewed to determine appropriate education?: Yes Instructions: ED Hematoma Follow-Up: Dyllan Baugh MD [Primary Care Provider] - Prescriptions: Mupirocin 2% Oint [Bactroban 2% Oint] 1 applic TOP TID #15 gm Doxycycline Hyclate 100 mg PO BID 7 Days #14 cap Comments: This looks to be a small collection of fluid in the area of the injury. It can be some old blood (hematoma) or just fluid from the injury (seroma). However with the increasing pain with some redness and warmth, presumption would be it is developing some infection. It does not feel like enough residual fluid at th is point need to open it with an incision. I would try some topical and oral antibiotics and see if that gets that partial and of it better. Use Edmundo wrap to help with swelling around the ankle and lower leg. Elevated often. I would suggest some warm towels or compresses to the area couple of times a day for 15 or 20 minutes at a time (there is no special timeframe per se). I sent your prescriptions to your preferred pharmacy. Consider some anti-inflammatory such as naproxen or ibuprofen twice daily as well to help with some of the inflammation. Recheck if not improving over the next several days. Forms: PCP List Discharge Date/Time: 09/07/23 15:22
[2023-09-07] MEDS: DOXYCYCLINE 100 MG TABLET PO STA (14:57)
== END 2023-09-07 15:22 | disposition home or self-care (01) ==
LOC: ED 12:33
DX: S80.12XA Contusion of left lower leg, initial encounter (principal); S81.812D Laceration without foreign body, left lower leg, subsequent encounter; L08.9 Local infection of the skin and subcutaneous tissue, unspecified; X58.XXXA Exposure to other specified factors, initial encounter; I10 Essential (primary) hypertension; I25.10 Atherosclerotic heart disease of native coronary artery without angina pectoris; I25.2 Old myocardial infarction; Z79.899 Other long term (current) drug therapy
CPT/HCPCS: 73590; 99283; A9270

== ENCOUNTER 2023-10-29 11:02 | Inpatient (IN) | payer MEDICARE, OTHER ==
--- NOTE | 2023-10-29 11:32 | ED Physician Documentation ---
PD HPI SKIN - Stated complaint Stated Complaint: HOLE IN LEG - Chief complaint Chief Complaint: Wound - Additional information Additional information: 83-year-old female presents emergency department for ongoing left lower extremity pain and swelling. Patient originally presented to the emergency department early July for concerns of a possible DVT of the left lower extremity. She fell about 2 weeks prior to that so since early July she has been having chronic issues with this left lower extremity. She recently had a well-healing bruise to the left connelly as well as multiple other bruises that have since then healed well without any difficulty. She had a venous duplex complete at that time which did not reveal a DVT and she was sent home with return precautions. She then came back to the emergency department September 07 for ongoing swelling of the left lower extremity that was having a lot of difficulty with healing. At that time she was diagnosed with a hematoma that is a small collection of old blood on the left lower extremity and she was given a prescription of doxycycline and mupirocin. She said going home she was doing her dressing changes daily and she noticed a thin piece of skin over the bruise that she pulled off and she said a very large amount of bright ronda blood came oozing out. She says it was not old blood. After that she said that she has had a pretty deep hole in her left connelly that she has been going to her primary care provider's office for weekly to have dressing change and packing complete but now she is complaining of new left lower extremity swelling and pain out of proportion that is spreading now down to her left calf. She says that she has been noticing some chills at home just some generalized unwell feeling. She went to her primary care provider's office today who sent her here to the emergency department because they have been having a really hard time getting her in with the wound care clinic as they are booked out until mid October or November. She has no history of type 2 diabetes. 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 HEENT: Macular degeneration Psych: None Musculoskeletal: None Derm: None - Past Surgical History Past Surgical History: Yes General: Appendectomy Cardiovascular: Coronary stent - Present Medications Home Medications: Ambulatory Orders Medication Instructions Recorded Confirmed Atorvastatin Calcium [Lipitor] 80 mg PO HS 06/16/13 10/29/23 Gabapentin 400 mg PO QPM 11/20/18 10/29/23 traZODone [Desyrel] 200 mg PO QPM PRN 11/20/18 10/29/23 Ibuprofen 400 mg PO BID PRN 07/11/21 10/29/23 Multivitamin 1 each PO DAILY 07/11/21 10/29/23 Meloxicam [Mobic] 7.5 mg PO DAILY 10 Days #10 tablet 07/20/22 10/29/23 Ondansetron Odt [Zofran] 4 mg TL Q6H PRN #10 tablet 05/12/23 10/29/23 Acetaminophen [Acetaminophen Extra 1,000 mg PO TID PRN 10/29/23 10/29/23 Strength] Aspirin EC [Ecotrin] 81 mg PO BID 10/29/23 10/29/23 Cholecalciferol [Vitamin D3] 50 mcg PO DAILY 10/29/23 10/29/23 Ipratropium [place] 2 spray KARINA TID PRN 10/29/23 10/29/23 Melatonin 5 mg PO QPM PRN 10/29/23 10/29/23 amLODIPine [Norvasc] mg PO DAILY 10/29/23 - Allergies Allergies/Adverse Reactions: Allergies Allergy/AdvReac Type Severity Reaction Status Date / Time clopidogrel bisulfate * Allergy Severe Rash Verified 10/29/23 11:35 [From Plavix] erythromycin base Allergy Mild Rash Verified 10/29/23 11:35 [Erythromycin Base] Penicillins Allergy Mild Rash Verified 10/29/23 11:35 spironolactone Allergy Mild Rash Verified 10/29/23 11:35 diazepam [From Valium] AdvReac Mild Anxiety Verified 10/29/23 11:35 - Social History Does the pt smoke?: No Smoking Status: Never smoker Does the pt drink ETOH?: Yes Does the pt have substance abuse?: No - Immunizations Immunizations are current?: Yes - POLST Patient has POLST: No PD ED PE NORMAL - Vitals Vital signs reviewed: Yes - General General: Alert and oriented X 3, No acute distress, Well developed/nourished - Derm Derm: Other (LLE erythema, 2+ pitting edema, weaping ulcer to left connelly with mild discoloration, tenderness out of proportion) Results - Vitals Vitals: Vital Signs - 24 hr 10/29/23 10/29/23 11:14 14:53 Temperature 36.4 C L 36.0 C L Heart Rate 69 53 L Respiratory 16 18 Rate Blood Pressure 116/69 182/91 H O2 Saturation 99 98 Oxygen O2 Source Room air - Labs Labs: Microbiology 10/29/23 12:03 Wound Culture - Preliminary Left Lower Extremity - Wound Laboratory Tests 10/29/23 10/29/23 11:50 11:50 WBC 7.6 RBC 3.98 L Hgb 12.4 Hct 40.8 MCV 102.5 H MCH 31.2 H MCHC 30.4 L RDW 14.3 Plt Count 256 MPV 9.5 Neut # (Auto) 5.2 Lymph # (Auto) 1.2 L [place] # (Auto) 0.5 Eos # (Auto) 0.2 Baso # (Auto) 0.1 Absolute Nucleated RBC 0.00 Nucleated RBC % 0.0 Sodium 138 Potassium 4.3 Chloride 106 Carbon Dioxide 27 Anion Gap 5.0 L BUN 18 Creatinine 1.0 Estimated GFR (MDRD) 53 L Glucose 88 Calcium 10.3 Magnesium 1.8 Total Bilirubin 0.3 AST 23 ALT 23 Alkaline Phosphatase 125 H Total Protein 6.4 Albumin 4.0 Globulin 2.4 Albumin/Globulin Ratio 1.7 Lipase 29 - Rads (name of study) CT with con of left lower extremity Relevant Findings:: Final report received, EMP independent interpretation of test, Other PD Medical Decision Making - ED course ED course: 83-year-old female presents emergency department for left lower extremity pain and swelling. Patient has been having this issue since early July she has tried multiple oral antibiotics for this wound infection and has had little to no relief. She comes in today with worsening left lower extremity swelling and pain out of proportion. A CT with contrast was completed to rule out possibility of this being necrotizing fasciitis which was found to be negative. CT results did not show any drainable abscesses or fluid collection but does show ulceration over the anterior aspect of the mid lower leg with extensive cellulitis in posterior left knee extending around left lower extremity left ankle and foot. There is a small amount of fluid along the posterior fascia and distal calf muscle without any evidence of emphysema or necrotizing fasciitis. I spoke with hospitalist Dr. Stone who suggested reaching out to surgery team for possible debridement of the wound as patient is having a delayed recovery and thinks this could be helpful. I spoke with Dr. Lees who came and evalua latha the patient and does not believe surgical debridement is warranted at this point in time see report note from Dr. Lees. Dr. Stone has graciously agreed to admit the patient for IV antibiotics he will be following patient to make sure that it is overall improving and send are getting worse, wound management and observing for possible abscess collection. 2 sets of blood cultures were collected as well as wound cultures collected prior to initiating Rocephin and vancomycin. Patient is agreeable to stay for hospitalization and IV antibiotics and understands the plan moving forward. Departure - Departure Disposition: [facility] DC/[place] Clinical Impression: Left leg cellulitis Discharge Date/Time: 10/29/23 16:50
[2023-10-29 11:55] LABS: BASOPHILS # (AUTO) 0.1 10^3/uL (0.0-0.1); BASOPHILS % (AUTO) 1.2 %; EOSINOPHILS # (AUTO) 0.2 10^3/uL (0.0-0.7); EOSINOPHILS % (AUTO) 2.9 %; HCT - HEMATOCRIT 40.8 % (37.0-47.0); HGB - HEMOGLOBIN 12.4 g/dL (12.0-16.0); LYMPHOCYTES # (AUTO) 1.2 10^3/uL (1.5-3.5); LYMPHOCYTES % (AUTO) 16.3 %; MEAN CORPUSCULAR HEMOGLOBIN 31.2 pg (27.0-31.0); MEAN CORPUSCULAR HGB CONC 30.4 g/dL (32.0-36.0); MEAN CORPUSCULAR VOLUME 102.5 fL (81.0-99.0); MEAN PLATELET VOLUME 9.5 fL (7.9-10.8); MONOCYTES # (AUTO) 0.5 10^3/uL (0.0-1.0); MONOCYTES % (AUTO) 6.8 %; NEUTROPHILS # (AUTO) 5.2 10^3/uL (1.5-6.6); NEUTROPHILS % (AUTO) 68.2 %; PLT - PLATELET COUNT 256 10^3/uL (130-450); RED BLOOD COUNT 3.98 10^6/uL (4.20-5.40); RED CELL DISTRIBUTION WIDTH 14.3 % (12.0-15.0); WHITE BLOOD COUNT 7.6 x10^3/uL (4.8-10.8)
[2023-10-29 12:19] LABS: ALBUMIN/GLOBULIN RATIO 1.7 (1.0-2.2); BILIRUBIN,TOTAL 0.3 mg/dL (0.2-1.0); CALCIUM 10.3 mg/dL (8.5-10.3); MAGNESIUM 1.8 mg/dL (1.7-2.3); POTASSIUM 4.3 mmol/L (3.5-4.5); TOTAL PROTEIN 6.4 g/dL (6.4-8.9)
[2023-10-29] MEDS: HYDROmorphone 0.5 MG/0.5 ML SYRINGE IVP STA ×3 (12:30→16:08)
[2023-10-29] MEDS ORDERED: iohexoL-300 100 ML VIAL ONE (12:37)
[2023-10-29] MEDS: iohexoL-300 100 ML VIAL IVP ONE (13:05)
--- NOTE | 2023-10-29 13:24 | CT Report ---
PROCEDURE: Lower Extremity LT W INDICATIONS: r/o nec fasc? Left connelly, LLE swelling, severe pain TECHNIQUE: After administration of contrast into mm axial sections acquired of the left lower extremity, with co tory and sagittal reformats. For radiation dose reduction, the following was used: automated expos ure control, adjustment of mA and/or kV according to patient size. CONTRAST: 100ml omni 300 COMPARISON: Left lower leg radiograph dated 09/07/2023. FINDINGS: Image quality: Excellent. Bones: Osteoarthritic changes are noted in left knee and left foot joints. No fracture or dislocatio n. No suspicious intraosseous lesion. No cortical erosion or abnormal periosteal reaction is seen. Soft tissues: There is subcutaneous soft tissue edema and swelling over dorsal aspect of left knee a nd proximal lower leg. Diffuse subcutaneous soft tissue edema and swelling throughout mid to distal l ower leg extending to hindfoot, midfoot and forefoot is seen. There is alteration involving anterior aspect of mid to distal lower leg. No discrete drainable peripherally enhancing fluid collection is s een. No area of abnormal intramuscular enhancement. Small amount of fluid is noted along dorsal fasci a of mid to distal gastrocnemius muscle and proximal portion of the soleus muscle. No large fascial f luid collection is noted. There is no abnormal soft tissue calcifications. No calcified intra-articul ar loose bodies. IMPRESSION: 1. Ulceration over anterior aspect of mid lower leg. Extensive cellulitis in posterior left knee exte nding to around left lower leg, left ankle and foot. No discrete drainable abscess collection is seen . No enhancing soft tissue mass. Small amount of fluid along posterior fascia of distal gastrocnemius muscle and proximal soleus muscle. No large fascial fluid collection is seen. No subcutaneous emphys luma or abnormal soft tissue calcifications. No evidence of necrotizing fasciitis. 2. Left knee and left foot osteoarthritis. No fracture or dislocation. No evidence of osteomyelitis. No suspicious bony lesions. Reviewed by: Gerard Alas MD on 10/29/2023 1:23 PM PDT Approved by: Gerard Alas MD on 10/29/2023 1:23 PM PDT Station ID: [id number]
--- NOTE | 2023-10-29 15:30 | CONSULTATION NOTE ---
Referring Provider Consult Date: 10/29/23 Chief Complaint - Chief Complaint Chief Complaint: painful swollen left leg History of Present Illness - History Obtained From Records Reviewed: yes History obtained from: pt Exam Limitations: none - History of Present Illness HPI Comment/Other: she bruised her left connelly just over 3 months ago. a couple weeks ago it open up by the bruise and spontaneously drained. she had more drainage with compression around that time. over the last 2 days she has had thin scant drainage needing dressing care 1 x per day. consult for leg debridement. she had a ct scan. 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 : reports: None HEENT: reports: Macular degeneration Psych: reports: None Musculoskeletal: reports: None Derm: reports: None MRSA Hx?: No - Past Surgical History General: reports: Appendectomy Cardiovascular: reports: Coronary stent - POLST Patient has POLST: No Meds/Allgy - Home Medications Home Medications: Ambulatory Orders Medication Instructions Recorded Confirmed Atorvastatin Calcium [Lipitor] 80 mg PO HS 06/16/13 06/03/23 Gabapentin 1 tab PO QID 11/20/18 06/03/23 traZODone [Desyrel] 2 tab PO QPM 11/20/18 06/03/23 Ibuprofen 2 tab PO BID 07/11/21 06/03/23 Multivitamin 1 each PO DAILY 07/11/21 06/03/23 Acetaminophen [Acetaminophen Extra 500 mg PO QID PRN #50 tablet 07/20/22 06/03/23 Strength] Meloxicam [Mobic] 7.5 mg PO DAILY 10 Days #10 tablet 07/20/22 06/03/23 Ondansetron Odt [Zofran] 4 mg TL Q6H PRN #10 tablet 05/12/23 06/03/23 Doxycycline Hyclate 100 mg PO BID 7 Days #14 cap 09/07/23 - Allergies Allergies/Adverse Reactions: Allergies Allergy/AdvReac Type Severity Reaction Status Date / Time clopidogrel bisulfate * Allergy Severe Rash Verified 10/29/23 11:35 [From Plavix] erythromycin base Allergy Mild Rash Verified 10/29/23 11:35 [Erythromycin Base] Penicillins Allergy Mild Rash Verified 10/29/23 11:35 spironolactone Allergy Mild Rash Verified 10/29/23 11:35 diazepam [From Valium] AdvReac Mild Anxiety Verified 10/29/23 11:35 Review of Systems - Other Findings Other Findings: history edema and compression stocking use. she states she can still get her compression stocking on 10 pt ros as above otherwise unremarkable Exam - Vital Signs Vital Signs: Vital Signs x48h Temp Pulse Resp BP Pulse Ox 10/29/23 14:53 36.0 C L 53 L 18 182/91 H 98 10/29/23 11:14 36.4 C L 69 16 116/69 99 - Physical Exam General Appearance: positive: No acute distress, Alert Eyes Bilateral: positive: PERRL, EOMI Neck: positive: No JVD, Trachea midline Respiratory: positive: No respiratory distress Skin: positive: Other (left connelly 3 to 4 mm circular full thickness skin loss with underlying tissue healthy. smaller 2 mm excoriation present. minimal cellulitis. no necrotic tissue mild diffuse edema present) Neurologic/Psychiatric: positive: Oriented x3 Conclusion/Plan - Problem List (1) Left leg cellulitis Conclusion/Plan: no necrotic tissue or abscess to drain. excision/ surgery not indicated - Lab Results Fish Bones: 10/29/23 11:50 10/29/23 11:50 - Diagnostic Imaging Results Diagnostic Imaging Results: positive: Final report reviewed, Read independently
--- NOTE | 2023-10-29 15:45 | PHARMACY PROGRESS NOTE ---
- Therapy Status Basis for treatment: Empirical Treatment indication: CELLULITIS Trough goal: AUC/MADHU 400-600 Concurrent antibiotics: CEFTRIAXONE 1 GM X 1 - SILKE Risk Risk level for Acute Kidney Injury: Moderate Acute Kidney Injury risk factors: Wt >100kg or BMI >40, Chronic baseline hypertension - Monitoring and Recommendation Clinical response to treatment: Lab Results 10/29/23 11:50 BUN 18 Creatinine 1.0 Estimated GFR (MDRD) 53 L Cultures 10/29/23 12:03 Left Lower Extremity - Wound Wound Culture - Preliminary Monitoring plan: Daily serum creatinine Areas for additional monitoring: IV to PO when appropriate, Therapy de- escalation based on culture results Pharmacy recommendation: Continue current regime (2 gm (14 mg/kg) IV q24h for estimated AUC/MADHU of 572)
[2023-10-29] MEDS ORDERED: SODIUM CHLORIDE FLUSH 0.9% 10 ML SYRINGE IVP PRN (15:48)
[2023-10-29] MEDS ORDERED: ONDANSETRON ODT 4 MG TABLET TL PRN (15:48)
[2023-10-29] MEDS ORDERED: ONDANSETRON 4 MG/2 ML VIAL IVP PRN (15:48)
--- NOTE | 2023-10-29 16:02 | HISTORY & PHYSICAL EXAMINATION ---
Chief Complaint - Chief Complaint Chief Complaint: Left lower extremity wound History of Present Illness - Admitted From Admitted From:: ED - History Obtained From Records Reviewed: Yes History obtained from: Patient Exam Limitations: None - History of Present Illness HPI Comment/Other: Patient is an 83-year-old female with a past medical history of CAD, hypertension who presented to the ED due to a draining left lower extremity wound from injury she suffered in July after losing her connelly while stumbling. Since then she has had multiple evaluations. Patient initially presented to the ED where she was evaluated for a DVT which was negative. She again returned to the ED on September 07 for ongoing swelling and she was diagnosed with a hematoma and given doxycycline and mupirocin which she completed. She was eval by her PCP who referred her to the wound clinic however she has not been able to go for her initial consultation yet. Patient has been having dressing changes and she reports that on one of her changes a small scab came off and revealed a hole at the wound site. This has been draining and appears to have a fluctuant area around the site. CT scan was performed in the ED showing ulceration over the mid lower leg with extensive cellulitis without any discrete drainable abscess. Wound culture has been obtained. She has been started on IV vancomycin and ceftriaxone. General surgery did evaluate the patient in person and does not feel there is any areas requiring debridement. 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 : reports: None HEENT: reports: Macular degeneration Psych: reports: None Musculoskeletal: reports: None Derm: reports: None MRSA Hx?: No - Past Surgical History General: reports: Appendectomy Cardiovascular: reports: Coronary stent - POLST Patient has POLST: No Meds/Allgy - Home Medications Home Medications: Ambulatory Orders Medication Instructions Recorded Confirmed Atorvastatin Calcium [Lipitor] 80 mg PO HS 06/16/13 06/03/23 Gabapentin 1 tab PO QID 11/20/18 06/03/23 traZODone [Desyrel] 2 tab PO QPM 11/20/18 06/03/23 Ibuprofen 2 tab PO BID 07/11/21 06/03/23 Multivitamin 1 each PO DAILY 07/11/21 06/03/23 Acetaminophen [Acetaminophen Extra 500 mg PO QID PRN #50 tablet 12/26/22 11/09/23 Strength] Meloxicam [Mobic] 7.5 mg PO DAILY 10 Days #10 tablet 07/20/22 06/03/23 Ondansetron Odt [Zofran] 4 mg TL Q6H PRN #10 tablet 05/12/23 06/03/23 Doxycycline Hyclate 100 mg PO BID 7 Days #14 cap 09/07/23 - Allergies Allergies/Adverse Reactions: Allergies Allergy/AdvReac Type Severity Reaction Status Date / Time clopidogrel bisulfate * Allergy Severe Rash Verified 10/29/23 11:35 [From Plavix] erythromycin base Allergy Mild Rash Verified 10/29/23 11:35 [Erythromycin Base] Penicillins Allergy Mild Rash Verified 10/29/23 11:35 spironolactone Allergy Mild Rash Verified 10/29/23 11:35 diazepam [From Valium] AdvReac Mild Anxiety Verified 10/29/23 11:35 Review of Systems - Constitutional Constitutional: denies: Fatigue, Fever, Chills, Malaise - Cardiovascular Cariovascular: denies: Irregular heart rate, Palpitations, Chest pain, Edema - All Other Systems All Other Systems: reports: Reviewed and negative Exam - Vital Signs Reviewed Vital Signs: Yes Vital Signs: Vital Signs x48h Temp Pulse Resp BP Pulse Ox 10/29/23 14:53 36.0 C L 53 L 18 182/91 H 98 10/29/23 11:14 36.4 C L 69 16 116/69 99 - Physical Exam General Appearance: positive: No acute distress, Alert Respiratory: positive: Chest non-tender, No respiratory distress, Breath sounds nml Cardiovascular: positive: Regular rate & rhythm, No murmur, No gallop Extremities: positive: Other (Left connelly showing an ulceration, draining purulent materal. Surrounding area is tender to the touch.) Conclusion/Plan - Problem List (1) Left leg cellulitis Conclusion/Plan: --Started on IV vancomycin and ceftriaxone. --Wound cultures are currently pending. Blood cultures have also been obtained. --Will see if we can discharge her to the wound clinic. --No debridement required per general surgery. - Lab Results Lab results reviewed: Yes Fish Bones: 10/29/23 11:50 10/29/23 11:50 - Diagnostic Imaging Results Diagnostic Imaging Results: positive: Final report reviewed
[2023-10-29] MEDS: cefTRIAXone 1 GM VIAL IVP STA (16:07)
[2023-10-29] MEDS: SODIUM CHLORIDE FLUSH 0.9% 10 ML SYRINGE IVP SCH (18:29)
[2023-10-29] MEDS: VANCOMYCIN INJ 2 GM in SODIUM CHLORIDE 0.9% 500 ML IV SCH (18:29)
[2023-10-29] MEDS: HYDROcod/ACETAM 5/325 MG TABLET PO PRN (19:12)
[2023-10-29] MEDS: GABAPENTIN 400 MG CAPSULE PO SCH (21:08)
[2023-10-29] MEDS: traZODone 50 MG TABLET PO PRN (21:08)
[2023-10-29] MEDS: ASPIRIN EC 81 MG TABLET PO SCH (21:08)
[2023-10-29] MEDS: ATORVASTATIN 40 MG TABLET PO SCH (21:08)
[2023-10-30] MEDS ORDERED: IPRATROPIUM BROMIDE NAS PRN (07:20)
[2023-10-30] MEDS: CHOLECALCIFEROL 25 MCG TABLET PO SCH (08:14)
[2023-10-30] MEDS: ENOXAPARIN 40 MG/0.4 ML SYRINGE SUBQ SCH (08:14)
[2023-10-30] MEDS: cefTRIAXone 2 GM in SODIUM CHLORIDE 0.9% MINIBAG 100 ML IV SCH (08:14)
[2023-10-30] MEDS: ACETAMINOPHEN 325 MG TABLET PO PRN (10:44)
--- NOTE | 2023-10-30 12:27 | PROVIDER PROGRESS NOTE ---
Assessment/Plan - Problem List (1) Left leg cellulitis Assessment/Plan: (1) Left leg cellulitis Conclusion/Plan: --Started on IV vancomycin and ceftriaxone. --Wound cultures are currently pending. Blood cultures have also been obtained. --Will see if we can discharge her to the wound clinic. --No debridement required per general surgery. Dispo: Anticipate discharge once wound cultures are finalized. Remains on IV antibiotics. - Current Meds Current Meds: Current Medications Generic Name Dose Route Start Last Admin Trade Name Freq PRN Reason Stop Dose Admin Acetaminophen 650 mg 10/29/23 15:48 10/30/23 10:44 Acetaminophen 325 Mg Tablet PO 650 mg Q4HR PRN Administration Pain 1 to 4, or Fever Hydrocodone Bitart/Acetaminophen 1 tab 10/29/23 15:48 10/30/23 11:51 Hydrocod/Acetam 5/325 Mg Tablet PO 1 tab Q4HR PRN Administration Pain 5 to 7 Aspirin 81 mg 10/29/23 21:00 10/30/23 08:14 Aspirin Ec 81 Mg Tablet PO 81 mg BID NELLY Administration Atorvastatin Calcium 80 mg 10/29/23 21:00 10/29/23 21:08 Atorvastatin 40 Mg Tablet PO 80 mg HS NELLY Administration Cholecalciferol 50 mcg 10/30/23 09:00 10/30/23 08:14 Cholecalciferol 25 Mcg Tablet PO 50 mcg DAILY NELLY Administration Enoxaparin Sodium 40 mg 10/30/23 09:00 10/30/23 08:14 Enoxaparin 40 Mg/0.4 Ml Syringe SUBQ 40 mg DAILY NELLY Administration Gabapentin 400 mg 10/29/23 21:00 10/29/23 21:08 Gabapentin 400 Mg Capsule PO 400 mg HS NELLY Administration Vancomycin HCl 2 gm/ Sodium 500 mls @ 250 mls/hr 10/29/23 16:30 10/29/23 20:30 Chloride IV Infused Q24H NELLY Infusion Ceftriaxone Sodium 2 gm/ 100 mls @ 200 mls/hr 10/30/23 09:00 10/30/23 08:14 Sodium Chloride IV 200 mls/hr DAILY NELLY Administration Sodium Chloride 10 ml 10/29/23 17:00 10/30/23 08:15 Sodium Chloride Flush 0.9% 10 Ml Syringe IVP 10 ml 0100,0900,1700 NELLY Administration Trazodone HCl 200 mg 10/29/23 19:00 10/29/23 21:08 Trazodone 50 Mg Tablet PO 200 mg QPM PRN Administration Insomnia - Lab Result Fish Bone Diagrams: 10/29/23 11:50 10/29/23 11:50 - Additional Planning My Orders: My Active Orders 10/29/23 15:48 Activity Orders [RC] Q2HR IO [RC] IOSHIFT Incentive Spirometry - RT [RC] TID Initiate Bowel Care Protocol [RC] .protocol Initiate Line Care Protocol [RC] QSHIFT Initiate Personal Care Protoco [RC] .protocol Oxygen Therapy [RC] .PRN Vital Signs [RC] 0800,1600,0000 Acetaminophen [Tylenol] 650 mg PO Q4HR PRN HYDROcod/ACETAM 5/325 [[place] 5/325] 1 tab PO Q4HR PRN Ondansetron Inj [Zofran Inj] 4 mg IVP Q6HR PRN Ondansetron Odt [Zofran Odt] 4 mg TL Q6HR PRN Sodium Chloride Flush 0.9% [Normal Saline Flush 0.9%] 10 ml IVP PRN PRN Code Status [OTHERS] Routine Condition of Patient [OTHERS] Routine DVT Prophylaxis [OTHERS] Routine 10/29/23 Dinner Regular Diet [DIET] 10/29/23 17:00 Sodium Chloride Flush 0.9% [Normal Saline Flush 0.9%] 10 ml IVP 0100,0900,1700 10/29/23 19:00 traZODone [Desyrel] 200 mg PO QPM PRN 10/29/23 21:00 Aspirin EC [Ecotrin] 81 mg PO BID Atorvastatin [Lipitor] 80 mg PO HS Gabapentin [Neurontin] 400 mg PO HS 10/30/23 07:20 Patient Own Med 2 each KARINA TID PRN 10/30/23 09:00 Cholecalciferol [Vitamin D3] 50 mcg PO DAILY Enoxaparin [Lovenox] 40 mg SUBQ DAILY amLODIPine [Norvasc] DOSE UNIT RTE FREQ cefTRIAXone [Rocephin] 2 gm Sodium Chloride 0.9% Minibag [Normal Saline 0.9% Minibag] 100 ml IV DAILY 10/31/23 05:00 BMP - BASIC METABOLIC PANEL [CHEM] DAILYLAB CBC [CBC - COMP BLD CT W/AUTO DIFF] [HEME] DAILYLAB 11/01/23 05:00 BMP - BASIC METABOLIC PANEL [CHEM] DAILYLAB CBC [CBC - COMP BLD CT W/AUTO DIFF] [HEME] DAILYLAB 11/02/23 05:00 BMP - BASIC METABOLIC PANEL [CHEM] DAILYLAB CBC [CBC - COMP BLD CT W/AUTO DIFF] [HEME] DAILYLAB 11/03/23 05:00 BMP - BASIC METABOLIC PANEL [CHEM] DAILYLAB CBC [CBC - COMP BLD CT W/AUTO DIFF] [HEME] DAILYLAB 11/04/23 05:00 BMP - BASIC METABOLIC PANEL [CHEM] DAILYLAB CBC [CBC - COMP BLD CT W/AUTO DIFF] [HEME] DAILYLAB Subjective - Subjective Patient Reports: Feeling Better, Resting Comfortably, No Complaints Objective Vital Signs: Vital Signs - 24 hr 10/29/23 10/29/23 10/29/23 14:53 16:00 23:54 Temperature 36.0 C L 36.6 C 36.6 C Heart Rate 53 L Heart Rate [ 76 70 Radial] Respiratory 18 16 18 Rate Blood Pressure 182/91 H Blood Pressure 149/84 H 139/73 H [Right Brachial artery] O2 Saturation 98 90 L 95 10/30/23 07:52 Temperature 36.6 C Heart Rate Heart Rate [ 67 Radial] Respiratory 18 Rate Blood Pressure Blood Pressure 151/81 H [Right Brachial artery] O2 Saturation 97 Oxygen O2 Source Room air I&O (Last 24 Hrs): Intake and Output Totals x24h 10/28/23 10/29/23 10/30/23 23:59 23:59 23:59 Intake Total 1000 240 Balance 1000 240 Neuro: Alert, CN 2-12 Grossly Intact, Oriented Times 3 Cardiovascular: Regular rate, Normal S1, Normal S2, No murmurs Respiratory: Chest non-tender, No respiratory distress, Breath sounds nml Abdomen: Normal bowel sounds, Soft, No tenderness, No hepatospenomegaly, No masses Extremities: No clubbing, No cyanosis, No edema, Normal pulses, No tenderness/swelling, Other (Wound area is wrapped. No discharge.) - Results Results: Laboratory Results WBC 7.6 x10^3/uL (4.8-10.8) 10/29/23 11:50 RBC 3.98 10^6/uL (4.20-5.40) L 10/29/23 11:50 Hgb 12.4 g/dL (12.0-16.0) 10/29/23 11:50 Hct 40.8 % (37.0-47.0) 10/29/23 11:50 MCV 102.5 fL (81.0-99.0) H 10/29/23 11:50 MCH 31.2 pg (27.0-31.0) H 10/29/23 11:50 MCHC 30.4 g/dL (32.0-36.0) L 10/29/23 11:50 RDW 14.3 % (12.0-15.0) 10/29/23 11:50 Plt Count 256 10^3/uL (130-450) 10/29/23 11:50 MPV 9.5 fL (7.9-10.8) 10/29/23 11:50 Neut # (Auto) 5.2 10^3/uL (1.5-6.6) 10/29/23 11:50 Lymph # (Auto) 1.2 10^3/uL (1.5-3.5) L 10/29/23 11:50 [place] # (Auto) 0.5 10^3/uL (0.0-1.0) 10/29/23 11:50 Eos # (Auto) 0.2 10^3/uL (0.0-0.7) 10/29/23 11:50 Baso # (Auto) 0.1 10^3/uL (0.0-0.1) 10/29/23 11:50 Absolute Nucleated RBC 0.00 x10^3/uL 10/29/23 11:50 Nucleated RBC % 0.0 /100WBC 10/29/23 11:50 Sodium 138 mmol/L (135-145) 10/29/23 11:50 Potassium 4.3 mmol/L (3.5-4.5) 10/29/23 11:50 Chloride 106 mmol/L (101-111) 10/29/23 11:50 Carbon Dioxide 27 mmol/L (21-32) 10/29/23 11:50 Anion Gap 5.0 (6-13) L 10/29/23 11:50 BUN 18 mg/dL (6-20) 10/29/23 11:50 Creatinine 1.0 mg/dL (0.6-1.3) 10/29/23 11:50 Estimated GFR (MDRD) 53 (>89) L 10/29/23 11:50 Glucose 88 mg/dL (74-104) 10/29/23 11:50 Calcium 10.3 mg/dL (8.5-10.3) 10/29/23 11:50 Magnesium 1.8 mg/dL (1.7-2.3) 10/29/23 11:50 Total Bilirubin 0.3 mg/dL (0.2-1.0) 10/29/23 11:50 AST 23 IU/L (10-42) 10/29/23 11:50 ALT 23 IU/L (10-60) 10/29/23 11:50 Alkaline Phosphatase 125 IU/L (42-121) H 10/29/23 11:50 Total Protein 6.4 g/dL (6.4-8.9) 10/29/23 11:50 Albumin 4.0 g/dL (3.2-5.5) 10/29/23 11:50 Globulin 2.4 g/dL (2.1-4.2) 10/29/23 11:50 Albumin/Globulin Ratio 1.7 (1.0-2.2) 10/29/23 11:50 Lipase 29 U/L (11-82) 10/29/23 11:50 - Procedures Procedures: Procedures EXCISION OF STOMACH, ENDO, DIAGN (08/26/15) TRANSFUSE NONAUT RED BLOOD CELLS IN PERIPH VEIN, PERC (08/26/15)
--- NOTE | 2023-10-30 13:40 | PHARMACY PROGRESS NOTE ---
- Best Possible Medication History Admit Date and Time: 10/29/23 1548 Processed by: Pharmacy Medications reviewed in ED?: Yes Medication History completed: Yes Patient Interview: Completed Secondary Source(s): Insurance records As the person ultimately responsible for medication therapy, providers are able to order a medication from an existing home medication list in [facility] via the "Reconcile Routine" prior to Confirmation of that medication by donor support technician. Such practice is discouraged except when the physician, in their clinical judgment, deems that a medical need exists for a medication without regard to previous use.
[2023-10-31 05:28] LABS: BASOPHILS # (AUTO) 0.1 10^3/uL (0.0-0.1); BASOPHILS % (AUTO) 1.3 %; EOSINOPHILS # (AUTO) 0.3 10^3/uL (0.0-0.7); EOSINOPHILS % (AUTO) 6.2 %; HCT - HEMATOCRIT 37.8 % (37.0-47.0); HGB - HEMOGLOBIN 11.9 g/dL (12.0-16.0); LYMPHOCYTES # (AUTO) 1.2 10^3/uL (1.5-3.5); LYMPHOCYTES % (AUTO) 25.9 %; MEAN CORPUSCULAR HEMOGLOBIN 31.9 pg (27.0-31.0); MEAN CORPUSCULAR HGB CONC 31.5 g/dL (32.0-36.0); MEAN CORPUSCULAR VOLUME 101.3 fL (81.0-99.0); MEAN PLATELET VOLUME 8.4 fL (7.9-10.8); MONOCYTES # (AUTO) 0.4 10^3/uL (0.0-1.0); MONOCYTES % (AUTO) 9.8 %; NEUTROPHILS # (AUTO) 2.5 10^3/uL (1.5-6.6); NEUTROPHILS % (AUTO) 55.2 %; PLT - PLATELET COUNT 234 10^3/uL (130-450); RED BLOOD COUNT 3.73 10^6/uL (4.20-5.40); RED CELL DISTRIBUTION WIDTH 14.1 % (12.0-15.0); WHITE BLOOD COUNT 4.5 x10^3/uL (4.8-10.8)
[2023-10-31 05:47] LABS: CALCIUM 9.8 mg/dL (8.5-10.3); CREATININE 0.7 mg/dL (0.6-1.3); POTASSIUM 3.8 mmol/L (3.5-4.5)
[2023-10-31] MEDS: MULTIVITAMIN TABLET PO SCH (07:43)
[2023-10-31] MEDS: amLODIPine 5 MG TABLET PO SCH (08:47)
[2023-10-31] MEDS ORDERED: NON FORMULARY MED (Multivitamin [Multivitamin] 1 EACH Tablet) PO SCH (09:00)
--- NOTE | 2023-10-31 11:07 | PROVIDER PROGRESS NOTE ---
Assessment/Plan - Problem List (1) Left leg cellulitis Assessment/Plan: (1) Left leg cellulitis Conclusion/Plan: --Started on IV vancomycin and ceftriaxone. --Wound cultures are currently pending. Blood cultures have also been obtained. --Will see if we can discharge her to the wound clinic. She has a follow up in October. --No debridement required per general surgery. --Dressing change today. Dispo: Anticipate discharge once wound cultures are finalized. Remains on IV antibiotics. - Current Meds Current Meds: Current Medications Generic Name Dose Route Start Last Admin Trade Name Freq PRN Reason Stop Dose Admin Acetaminophen 650 mg 10/29/23 15:48 10/30/23 14:55 Acetaminophen 325 Mg Tablet PO 650 mg Q4HR PRN Administration Pain 1 to 4, or Fever Amlodipine Besylate 5 mg 10/31/23 09:00 10/31/23 08:47 Amlodipine 5 Mg Tablet PO 5 mg DAILY NELLY Administration Aspirin 81 mg 10/29/23 21:00 10/31/23 08:47 Aspirin Ec 81 Mg Tablet PO 81 mg BID NELLY Administration Atorvastatin Calcium 80 mg 10/29/23 21:00 10/30/23 21:10 Atorvastatin 40 Mg Tablet PO 80 mg HS NELLY Administration Cholecalciferol 50 mcg 10/30/23 09:00 10/31/23 08:47 Cholecalciferol 25 Mcg Tablet PO 50 mcg DAILY NELLY Administration Enoxaparin Sodium 40 mg 10/30/23 09:00 10/31/23 08:47 Enoxaparin 40 Mg/0.4 Ml Syringe SUBQ 40 mg DAILY NELLY Administration Gabapentin 400 mg 10/29/23 21:00 10/30/23 21:10 Gabapentin 400 Mg Capsule PO 400 mg HS NELLY Administration Vancomycin HCl 2 gm/ Sodium 500 mls @ 250 mls/hr 10/29/23 16:30 10/30/23 18:51 Chloride IV Infused Q24H NELLY Infusion Ceftriaxone Sodium 2 gm/ 100 mls @ 200 mls/hr 10/30/23 09:00 10/31/23 08:48 Sodium Chloride IV 200 mls/hr DAILY NELLY Administration Multivitamins 1 tab 10/31/23 08:00 10/31/23 07:43 Multivitamin Tablet PO 1 tab DAILYWM NELLY Administration Sodium Chloride 10 ml 10/29/23 17:00 10/31/23 08:48 Sodium Chloride Flush 0.9% 10 Ml Syringe IVP 10 ml 0100,0900,1700 NELLY Administration Trazodone HCl 200 mg 10/29/23 19:00 10/30/23 21:10 Trazodone 50 Mg Tablet PO 200 mg QPM PRN Administration Insomnia - Lab Result Fish Bone Diagrams: 10/31/23 05:23 10/31/23 05:23 - Additional Planning My Orders: My Active Orders 10/31/23 08:00 Multivitamin [Theragran] 1 tab PO DAILYWM 10/31/23 09:00 amLODIPine [Norvasc] 5 mg PO DAILY 10/31/23 10:39 HYDROcod/ACETAM 5/325 [[place] 5/325] 1 - 2 tab PO Q4HR PRN 11/01/23 05:00 BMP - BASIC METABOLIC PANEL [CHEM] DAILYLAB CBC [CBC - COMP BLD CT W/AUTO DIFF] [HEME] DAILYLAB 11/02/23 05:00 BMP - BASIC METABOLIC PANEL [CHEM] DAILYLAB CBC [CBC - COMP BLD CT W/AUTO DIFF] [HEME] DAILYLAB 11/03/23 05:00 BMP - BASIC METABOLIC PANEL [CHEM] DAILYLAB CBC [CBC - COMP BLD CT W/AUTO DIFF] [HEME] DAILYLAB 11/04/23 05:00 BMP - BASIC METABOLIC PANEL [CHEM] DAILYLAB CBC [CBC - COMP BLD CT W/AUTO DIFF] [HEME] DAILYLAB Subjective - Subjective Patient Reports: Resting Comfortably, No Complaints Objective Vital Signs: Vital Signs - 24 hr 10/30/23 10/30/23 10/31/23 15:59 23:48 08:00 Temperature 36.6 C 36.5 C 36.5 C Heart Rate [ 63 73 71 Brachial] Respiratory 20 18 18 Rate Blood Pressure 143/72 H 146/72 H 153/95 H [Right Brachial artery] O2 Saturation 97 96 100 Oxygen O2 Source Room air I&O (Last 24 Hrs): Intake and Output Totals x24h 10/29/23 10/30/23 10/31/23 23:59 23:59 23:59 Intake Total 1000 2080 240 Balance 1000 2080 240 General: Alert, Oriented x3, Cooperative, No acute distress Cardiovascular: Regular rate, Normal S1, Normal S2, No murmurs Respiratory: Chest non-tender, No respiratory distress, Breath sounds nml Abdomen: Normal bowel sounds, Soft, No tenderness, No hepatospenomegaly, No masses Comments/Notes: Unchanged wound. - Results Results: Laboratory Results WBC 4.5 x10^3/uL (4.8-10.8) L 10/31/23 05:23 RBC 3.73 10^6/uL (4.20-5.40) L 10/31/23 05:23 Hgb 11.9 g/dL (12.0-16.0) L 10/31/23 05:23 Hct 37.8 % (37.0-47.0) 10/31/23 05:23 MCV 101.3 fL (81.0-99.0) H 10/31/23 05:23 MCH 31.9 pg (27.0-31.0) H 10/31/23 05:23 MCHC 31.5 g/dL (32.0-36.0) L 10/31/23 05:23 RDW 14.1 % (12.0-15.0) 10/31/23 05:23 Plt Count 234 10^3/uL (130-450) 10/31/23 05:23 MPV 8.4 fL (7.9-10.8) 10/31/23 05:23 Neut # (Auto) 2.5 10^3/uL (1.5-6.6) 10/31/23 05:23 Lymph # (Auto) 1.2 10^3/uL (1.5-3.5) L 10/31/23 05:23 [place] # (Auto) 0.4 10^3/uL (0.0-1.0) 10/31/23 05:23 Eos # (Auto) 0.3 10^3/uL (0.0-0.7) 10/31/23 05:23 Baso # (Auto) 0.1 10^3/uL (0.0-0.1) 10/31/23 05:23 Absolute Nucleated RBC 0.00 x10^3/uL 10/31/23 05:23 Nucleated RBC % 0.0 /100WBC 10/31/23 05:23 Sodium 141 mmol/L (135-145) 10/31/23 05:23 Potassium 3.8 mmol/L (3.5-4.5) 10/31/23 05:23 Chloride 108 mmol/L (101-111) 10/31/23 05:23 Carbon Dioxide 30 mmol/L (21-32) 10/31/23 05:23 Anion Gap 3.0 (6-13) L 10/31/23 05:23 BUN 15 mg/dL (6-20) 10/31/23 05:23 Creatinine 0.7 mg/dL (0.6-1.3) 10/31/23 05:23 Estimated GFR (MDRD) 80 (>89) L 10/31/23 05:23 Glucose 99 mg/dL (74-104) 10/31/23 05:23 Calcium 9.8 mg/dL (8.5-10.3) 10/31/23 05:23 Magnesium 1.8 mg/dL (1.7-2.3) 10/29/23 11:50 Total Bilirubin 0.3 mg/dL (0.2-1.0) 10/29/23 11:50 AST 23 IU/L (10-42) 10/29/23 11:50 ALT 23 IU/L (10-60) 10/29/23 11:50 Alkaline Phosphatase 125 IU/L (42-121) H 10/29/23 11:50 Total Protein 6.4 g/dL (6.4-8.9) 10/29/23 11:50 Albumin 4.0 g/dL (3.2-5.5) 10/29/23 11:50 Globulin 2.4 g/dL (2.1-4.2) 10/29/23 11:50 Albumin/Globulin Ratio 1.7 (1.0-2.2) 10/29/23 11:50 Lipase 29 U/L (11-82) 10/29/23 11:50 - Procedures Procedures: Procedures EXCISION OF STOMACH, ENDO, DIAGN (08/26/15) TRANSFUSE NONAUT RED BLOOD CELLS IN PERIPH VEIN, PERC (08/26/15)
[2023-10-31] MEDS: HYDROcod/ACETAM 5/325 MG TABLET PO PRN (11:34)
[2023-11-01 05:56] LABS: BASOPHILS # (AUTO) 0.1 10^3/uL (0.0-0.1); BASOPHILS % (AUTO) 1.6 %; EOSINOPHILS # (AUTO) 0.3 10^3/uL (0.0-0.7); EOSINOPHILS % (AUTO) 5.4 %; HCT - HEMATOCRIT 39.7 % (37.0-47.0); HGB - HEMOGLOBIN 12.7 g/dL (12.0-16.0); LYMPHOCYTES # (AUTO) 1.6 10^3/uL (1.5-3.5); LYMPHOCYTES % (AUTO) 29.2 %; MEAN CORPUSCULAR HEMOGLOBIN 32.2 pg (27.0-31.0); MEAN CORPUSCULAR VOLUME 100.8 fL (81.0-99.0); MEAN PLATELET VOLUME 10.1 fL (7.9-10.8); MONOCYTES # (AUTO) 0.5 10^3/uL (0.0-1.0); MONOCYTES % (AUTO) 8.7 %; NEUTROPHILS % (AUTO) 53.7 %; PLT - PLATELET COUNT 206 10^3/uL (130-450); RED BLOOD COUNT 3.94 10^6/uL (4.20-5.40); RED CELL DISTRIBUTION WIDTH 14.1 % (12.0-15.0); WHITE BLOOD COUNT 5.5 x10^3/uL (4.8-10.8)
[2023-11-01 06:14] LABS: CALCIUM 9.8 mg/dL (8.5-10.3); CREATININE 0.7 mg/dL (0.6-1.3)
[2023-11-01 07:52] VITALS: O2SAT 97
--- NOTE | 2023-11-01 10:42 | Discharge Plan ---
Discharge Plan Problem Reviewed?: Yes Disposition: Home, Self Care Prescriptions: HYDROcod/ACETAM /325 [[place] 5/325] 1 - 2 tab PO Q4HR PRN #5 tab PRN Reason: Pain 5 to 7 Cefdinir 300 mg PO BID 4 Days #8 cap Diet: Regular Activity Restrictions: No Restrictions No Smoking: If you smoke, Please STOP! Call for help.
--- NOTE | 2023-11-01 10:44 | DISCHARGE SUMMARY ---
Discharge Summary Admit Date: 10/29/23 Discharge Date: 11/01/23 Discharging Provider: Shireen Maldonado Discharge Disposition: 01 Home, Self Care - HPI History of Present Illness: Patient is an 83-year-old female with a past medical history of CAD, hypertension who presented to the ED due to a draining left lower extremity wound from injury she suffered in July after losing her connelly while stumbling. Since then she has had multiple evaluations. Patient initially presented to the ED where she was evaluated for a DVT which was negative. She again returned to the ED on September 07 for ongoing swelling and she was diagnosed with a hematoma and given doxycycline and mupirocin which she completed. She was eval by her PCP who referred her to the wound clinic however she has not been able to go for her initial consultation yet. Patient has been having dressing changes and she reports that on one of her changes a small scab came off and revealed a hole at the wound site. This has been draining and appears to have a fluctuant area around the site. CT scan was performed in the ED showing ulceration over the mid lower leg with extensive cellulitis without any discrete drainable abscess. Wound culture has been obtained. She has been started on IV vancomycin and ceftriaxone. General surgery did evaluate the patient in person and does not feel there is any areas requiring debridement. - HOSPITAL COURSE Hospital Course: Patient is a an 83-year-old female who presented to the ED due to a draining left lower extremity wound from injury sustained in July. Patient was admitted and started on IV vancomycin and ceftriaxone after being evaluated by general surgery. They had not recommended any debridement or incision and drainage. A wound culture was obtained which did not show any pathologic organisms. She was subsequently discharged on cefdinir for her wound. She has been instructed to follow-up with her PCP in regards to getting a referral for wound care at [facility] as [facility] be hospitals wound care clinic has a prolonged wait list. - ALLERGIES Allergies/Adverse Reactions: Allergies Allergy/AdvReac Type Severity Reaction Status Date / Time clopidogrel bisulfate * Allergy Severe Rash Verified 10/29/23 11:35 [From Plavix] erythromycin base Allergy Mild Rash Verified 10/29/23 11:35 [Erythromycin Base] Penicillins Allergy Mild Rash Verified 10/29/23 11:35 spironolactone Allergy Mild Rash Verified 10/29/23 11:35 diazepam [From Valium] AdvReac Mild Anxiety Verified 10/29/23 11:35 - MEDICATIONS Home Medications: Ambulatory Orders Medication Instructions Recorded Confirmed Atorvastatin Calcium [Lipitor] 80 mg PO HS 06/16/13 10/29/23 Gabapentin 400 mg PO QPM 11/20/18 10/29/23 traZODone [Desyrel] 200 mg PO QPM PRN 11/20/18 10/29/23 Ibuprofen 400 mg PO BID PRN 07/11/21 10/29/23 Multivitamin 1 each PO DAILY 07/11/21 10/29/23 Meloxicam [Mobic] 7.5 mg PO DAILY 10 Days #10 tablet 07/20/22 10/29/23 Ondansetron Odt [Zofran Odt] 4 mg TL Q6H PRN #10 tablet 05/12/23 10/29/23 Acetaminophen [Acetaminophen Extra 1,000 mg PO TID PRN 10/29/23 10/29/23 Strength] Aspirin EC [Ecotrin] 81 mg PO BID 10/29/23 10/29/23 Cholecalciferol [Vitamin D3] 50 mcg PO DAILY 10/29/23 10/29/23 Ipratropium [place] 2 spray KARINA TID PRN 10/29/23 10/29/23 Melatonin 5 mg PO QPM PRN 10/29/23 10/29/23 amLODIPine [Norvasc] 5 mg PO DAILY 10/29/23 10/30/23 Cefdinir 300 mg PO BID 4 Days #8 cap 11/01/23 HYDROcod/ACETAM 5/325 [[place] 5/325] 1 - 2 tab PO Q4HR PRN #5 tab 11/01/23 - PHYSICAL EXAM AT DISCHARGE General Appearance: positive: No acute distress, Alert Respiratory: positive: Chest non-tender, No respiratory distress, Breath sounds nml Cardiovascular: positive: Regular rate & rhythm, No murmur, No gallop Skin: positive: Other (R LE wound.) - LABS Result Diagrams: 11/01/23 05:08 11/01/23 05:08
[2023-11-01 11:32] VITALS: BP 147/83
== END 2023-11-01 12:41 | disposition home or self-care (01) | DRG 603 ==
LOC: ED 11:02 → MS2 15:48
PROVIDERS: ADMIT Family Medicine; ATTEND Family Medicine
DX: L03.116 Cellulitis of left lower limb (principal); L97.929 Non-pressure chronic ulcer of unspecified part of left lower leg with unspecified severity; I25.10 Atherosclerotic heart disease of native coronary artery without angina pectoris; I10 Essential (primary) hypertension; I25.2 Old myocardial infarction; Z79.899 Other long term (current) drug therapy; Z88.0 Allergy status to penicillin; Z88.1 Allergy status to other antibiotic agents; Z88.8 Allergy status to other drugs, medicaments and biological substances
CPT/HCPCS: 36415; 73701; 80048; 80053; 83690; 83735; 85025; 87040; 87070; 87205; 96374; 96376; 99285; A9270; J1170; J1650; J3370; Q9967

== ENCOUNTER 2023-11-30 06:47 | Outpatient (CLI) | payer MEDICARE, OTHER ==
--- NOTE | 2023-11-30 17:08 | Ultrasound Report ---
PROCEDURE: Arterial Duplex Lwr Ext LT INDICATIONS: UNSPECIFIED OPEN WOUND, LEFT LOWER LEG TECHNIQUE: Color and pulse Doppler interrogation was performed of the left lower extremity arterial system, with image documentation. COMPARISON: None FINDINGS: Common femoral artery: 113 cm/sec, with triphasic flow. Deep femoral artery: 74 cm/sec, with triphasic flow. Proximal superficial femoral artery: 77 cm/sec, with triphasic flow. Mid superficial femoral artery: 96 cm/sec, with triphasic flow. Distal superficial femoral artery: 80 cm/sec, with triphasic flow. Popliteal artery: 76 cm/sec, with triphasic flow. Posterior tibial artery: 60 cm/sec, with triphasic flow. Anterior tibial artery/dorsalis pedis: 60 cm/sec, with triphasic flow. Robert-scale imaging description: Mild atherosclerotic plaque is present throughout. No focal hemodyna mically significant stenosis. IMPRESSION: Patent lower extremity vasculature without hemodynamically significant stenosis. Reviewed by: Larisa Mondragon MD on 11/30/2023 5:07 PM PDT Approved by: Larisa Mondragon MD on 11/30/2023 5:07 PM PDT Station ID: [id number]
== END 2023-11-30 06:48 | disposition home or self-care (01) ==
LOC: DI 06:47
PROVIDERS: ATTEND Surgery
DX: S81.802A Unspecified open wound, left lower leg, initial encounter (principal)

== ENCOUNTER 2024-01-13 19:41 | Outpatient (CLI) | payer MEDICARE, OTHER | END 2024-01-13 23:59 | disposition critical access hospital (66) | LOC: EMS 19:41 | DX: R06.02 Shortness of breath (principal); F41.9 Anxiety disorder, unspecified | CPT/HCPCS: A0425; A0429 ==

== ENCOUNTER 2024-01-13 19:54 | Inpatient (IN) | payer MEDICARE, OTHER ==
--- NOTE | 2024-01-13 21:02 | ED Physician Documentation ---
History of Present Illness - Stated complaint Stated Complaint: SOA - Chief complaint Chief Complaint: Resp - History obtained from History obtained from: Patient, Family (daughter) - Additonal information Additional information: 83-year-old woman presents to the ED with multiple medical complaints, predominantly that she is not able to sleep due to left lower extremity wound pain. She endorses some nausea and shortness of breath associated with pain. Denies chest pain, dizziness, cough, fever, nausea vomiting. Denies leg swelling. Denies erythema around the wound or increased swelling. PD PAST MEDICAL HISTORY - Past Medical History Cardiovascular: Hypertension, Coronary artery disease, [place] Respiratory: None Neuro: None Endocrine/Autoimmune: None GI: None [employer]: None : None HEENT: Macular degeneration Psych: None Musculoskeletal: None Derm: None - Past Surgical History Past Surgical History: Yes General: Appendectomy Cardiovascular: Coronary stent - Present Medications Home Medications: Ambulatory Orders Medication Instructions Recorded Confirmed Atorvastatin Calcium [Lipitor] 80 mg PO HS 06/16/13 10/29/23 Gabapentin 400 mg PO QPM 11/20/18 10/29/23 traZODone [Desyrel] 200 mg PO QPM PRN 11/20/18 10/29/23 Ibuprofen 400 mg PO BID PRN 07/11/21 10/29/23 Multivitamin 1 each PO DAILY 07/11/21 10/29/23 Meloxicam [Mobic] 7.5 mg PO DAILY 10 Days #10 tablet 07/20/22 10/29/23 Ondansetron Odt [Zofran Odt] 4 mg TL Q6H PRN #10 tablet 05/12/23 10/29/23 Acetaminophen [Acetaminophen Extra 1,000 mg PO TID PRN 10/29/23 10/29/23 Strength] Aspirin EC [Ecotrin] 81 mg PO BID 10/29/23 10/29/23 Cholecalciferol [Vitamin D3] 50 mcg PO DAILY 10/29/23 10/29/23 Ipratropium [place] 2 spray KARINA TID PRN 10/29/23 10/29/23 Melatonin 5 mg PO QPM PRN 10/29/23 10/29/23 amLODIPine [Norvasc] 5 mg PO DAILY 10/29/23 10/30/23 Cefdinir 300 mg PO BID 4 Days #8 cap 11/01/23 HYDROcod/ACETAM 5/325 [[place] 5/325] 1 - 2 tab PO Q4HR PRN #5 tab 11/01/23 Oxycodone HCl/Acetaminophen 1 each PO Q4H PRN #8 tablet 01/13/24 [Percocet 5-325 mg Tablet] - Allergies Allergies/Adverse Reactions: Allergies Allergy/AdvReac Type Severity Reaction Status Date / Time clopidogrel bisulfate * Allergy Severe Rash Verified 01/13/24 20:01 [From Plavix] erythromycin base Allergy Mild Rash Verified 01/13/24 20:01 [Erythromycin Base] Penicillins Allergy Mild Rash Verified 01/13/24 20:01 spironolactone Allergy Mild Rash Verified 01/13/24 20:01 diazepam [From Valium] AdvReac Mild Anxiety Verified 01/13/24 20:01 - Social History Does the pt smoke?: No Smoking Status: Never smoker Does the pt drink ETOH?: Yes Does the pt have substance abuse?: No - Immunizations Immunizations are current?: Yes - POLST Patient has POLST: No PD ED PE NORMAL - Vitals Vital signs reviewed: Yes - General General: Alert and oriented X 3, No acute distress, Well developed/nourished - HEENT HEENT: Atraumatic, PERRL, EOMI - Neck Neck: Supple, no meningeal sign - Cardiac Cardiac: RRR - Respiratory Respiratory: No respiratory distress, Clear bilaterally - Abdomen Abdomen: Non tender, Non distended - Derm Derm: Normal color, Warm and dry, Other (Small left lower extremity wound, covered with clean bandage. When exposed, no signs of cellulitis and it appears to be healing well.) - Extremities Extremities: No tenderness to palpate, Normal ROM s pain, No edema Results - Vitals Vitals: Vital Signs - 24 hr 01/13/24 19:54 Temperature 36.6 C Heart Rate 99 Respiratory 16 Rate Blood Pressure 104/74 O2 Saturation 99 Oxygen O2 Source Room air PD Medical Decision Making - ED course ED course: 83-year-old woman presents with left lower extremity causing her pain, associated nausea and shortness of breath related to pain. She was provided with pain meds with relief. Return precautions given. plan to f/u with pcp and wound clinic. Departure - Departure Disposition: Home, Self Care Clinical Impression: Leg pain Condition: Stable Instructions: ED RICE Prescriptions: Oxycodone HCl/Acetaminophen [Percocet 5-325 mg Tablet] 1 each PO Q4H PRN #8 tablet PRN Reason: Pain >8 Comments: You were seen in the emergency department for leg pain. Pain meds sent to [facility]. Do not use when driving or operating heavy machinery. Dispose of any unused pills at your local police station. This medication may cause constipation. If you are prone to constipation then please take with [id number] sennadocusate and MiraLAX. Please follow-up with your primary care provider and return to the emergency department if you have any new or worsening symptoms or other concerns. Forms: PCP List
[2024-01-13] MEDS ORDERED: MORPHINE 2 MG/ML CARPUJECT ONE (21:18)
[2024-01-13] MEDS: MORPHINE 2 MG/ML CARPUJECT IVP STA (21:20)
[2024-01-13 21:33] LABS: BASOPHILS # (AUTO) 0.1 10^3/uL (0.0-0.1); BASOPHILS % (AUTO) 0.7 %; EOSINOPHILS % (AUTO) 0.4 %; HCT - HEMATOCRIT 26.7 % (37.0-47.0); HGB - HEMOGLOBIN 8.3 g/dL (12.0-16.0); LYMPHOCYTES # (AUTO) 1.2 10^3/uL (1.5-3.5); LYMPHOCYTES % (AUTO) 14.3 %; MEAN CORPUSCULAR HEMOGLOBIN 32.8 pg (27.0-31.0); MEAN CORPUSCULAR HGB CONC 31.1 g/dL (32.0-36.0); MEAN CORPUSCULAR VOLUME 105.5 fL (81.0-99.0); MEAN PLATELET VOLUME 9.7 fL (7.9-10.8); MONOCYTES # (AUTO) 0.4 10^3/uL (0.0-1.0); NEUTROPHILS % (AUTO) 70.7 %; PLT - PLATELET COUNT 293 10^3/uL (130-450); RED BLOOD COUNT 2.53 10^6/uL (4.20-5.40); RED CELL DISTRIBUTION WIDTH 14.4 % (12.0-15.0); WHITE BLOOD COUNT 8.5 x10^3/uL (4.8-10.8)
[2024-01-13 21:38] LABS: SLIDE REVIEW? Indicated
[2024-01-13 21:52] LABS: BILIRUBIN,TOTAL 0.4 mg/dL (0.2-1.0); CALCIUM 9.8 mg/dL (8.5-10.3); CREATININE 0.9 mg/dL (0.6-1.3); POTASSIUM 4.6 mmol/L (3.5-4.5)
[2024-01-13 21:58] LABS: DIFFERENTIAL COMMENT MANUAL=AUTO DIFF; PLATELET ESTIMATE, MANUAL NORMAL (130-450,000) (NORMAL); PLATELET MORPHOLOGY NORMAL APPEARANCE (NORMAL); RBC MORPHOLOGY (MULTIPLE) H (NORMAL)
--- NOTE | 2024-01-13 21:59 | ED Physician Documentation ---
ED Addendum - Addendum Addendum: 01/13/24 21:54 Note that patient requested discharge prior to labs resulting and stated that she was feeling completely asymptomatic except for pain in the leg. As she was leaving she became acutely lightheaded, vomited and had a presyncopal episode. She returned to the ED where orthostatic vital signs were done which determined she did not have orthostasis. However her labs had resulted at the time and showed new onset anemia with hemoglobin 8.3, decreased from 11/01/2023 with 12.7. Patient had black emesis reportedly in the waiting room and given her new medication of Eliquis that she started a week ago she is a candidate for blood transfusion and possible GI intervention by her surgeon. Dr. Lees recommends admission to med/surg for stabilization and possible endoscopy tomorrow. 01/13/24 21:59 Disposition admit Condition stable Impression 1. shortness of breath 2. anemia 3. black emesis 4. dizziness
[2024-01-13] MEDS ORDERED: traZODone 50 MG TABLET PO PRN (22:28)
[2024-01-13] MEDS ORDERED: NON FORMULARY MED (Melatonin [Melatonin] 5 MG Tablet) PO PRN (22:28)
[2024-01-13] MEDS ORDERED: ONDANSETRON ODT 4 MG TABLET TL PRN ×2 (22:28→22:31)
--- NOTE | 2024-01-13 22:47 | HISTORY & PHYSICAL EXAMINATION ---
Chief Complaint - Chief Complaint Chief Complaint: Weakness History of Present Illness - Admitted From Admitted From:: ER - History Obtained From Records Reviewed: Yes History obtained from: Patient, staff, chart Exam Limitations: Virtual exam - History of Present Illness HPI Comment/Other: H&P was conducted via video remotely, using Access Cart. Patient is in [place]. Physician is in [place]. CVIR TECH at bedside. 83 yo F with PMH of AFib on Eliquis, HTN, CAD, Macular Degeneration, LLE wound presented to the ER with c/o 2 day h/o weakness. Pt has had wound on LLE since 05/2023; it is healing, but is sometimes painful and keeps her awake at night. Pt was started on Eliquis 7-10 days ago for her AFib with no noticed side effects. Pt noticed that she had increased weakness, fatigue, SOB about 2 days ago, on Wednesday. Yesterday, she had a black BM, formed. No other symptoms. She saw her PCP earlier today for weakness. She then came to the ER. She could not give more history. She was given pain medications for her LLE wound pain. As she was being discharged, she had Nausea with black emesis x 1 and felt dizzy. She had not had these symptoms prior to this. No abdo pain. No CP, cough. No F/C. No dysuria. In the ER, BP 99/83, Hgb 8.3 (down from 12.7 in 10/2023), MCV 105.5 ER Provider D/W General Surgeon who will consult and possibly do EGD in AM. Pt was given Morphine in the ER and PRBC 1 unit was ordered. 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 : reports: None HEENT: reports: Macular degeneration Psych: reports: None Musculoskeletal: reports: None Derm: reports: None MRSA Hx?: No - Past Surgical History General: reports: Appendectomy Cardiovascular: reports: Coronary stent - POLST Patient has POLST: No Meds/Allgy - Home Medications Home Medications: Ambulatory Orders Medication Instructions Recorded Confirmed Atorvastatin Calcium [Lipitor] 80 mg PO HS 06/16/13 10/29/23 Gabapentin 400 mg PO QPM 11/20/18 10/29/23 traZODone [Desyrel] 200 mg PO QPM PRN 11/20/18 10/29/23 Ibuprofen 400 mg PO BID PRN 07/11/21 10/29/23 Multivitamin 1 each PO DAILY 07/11/21 10/29/23 Meloxicam [Mobic] 7.5 mg PO DAILY 10 Days #10 tablet 07/20/22 10/29/23 Ondansetron Odt [Zofran Odt] 4 mg TL Q6H PRN #10 tablet 05/12/23 10/29/23 Acetaminophen [Acetaminophen Extra 1,000 mg PO TID PRN 10/29/23 10/29/23 Strength] Aspirin EC [Ecotrin] 81 mg PO BID 10/29/23 10/29/23 Cholecalciferol [Vitamin D3] 50 mcg PO DAILY 10/29/23 10/29/23 Ipratropium [place] 2 spray KARINA TID PRN 10/29/23 10/29/23 Melatonin 5 mg PO QPM PRN 10/29/23 10/29/23 amLODIPine [Norvasc] 5 mg PO DAILY 10/29/23 10/30/23 Cefdinir 300 mg PO BID 4 Days #8 cap 11/01/23 HYDROcod/ACETAM 5/325 [Flint 5/325] 1 - 2 tab PO Q4HR PRN #5 tab 11/01/23 Oxycodone HCl/Acetaminophen 1 each PO Q4H PRN #8 tablet 01/13/24 [Percocet 5-325 mg Tablet] - Allergies Allergies/Adverse Reactions: Allergies Allergy/AdvReac Type Severity Reaction Status Date / Time clopidogrel bisulfate * Allergy Severe Rash Verified 01/13/24 20:01 [From Plavix] erythromycin base Allergy Mild Rash Verified 01/13/24 20:01 [Erythromycin Base] Penicillins Allergy Mild Rash Verified 01/13/24 20:01 spironolactone Allergy Mild Rash Verified 01/13/24 20:01 diazepam [From Valium] AdvReac Mild Anxiety Verified 01/13/24 20:01 Review of Systems - All Other Systems All Other Systems: reports: Reviewed and negative Exam - Vital Signs Reviewed Vital Signs: Yes Vital Signs: Vital Signs x48h Temp Pulse Pulse Pulse Pulse Resp BP 01/13/24 22:20 89 16 109/72 01/13/24 21:51 98 98 93 01/13/24 21:30 87 16 99/83 H 01/13/24 19:54 36.6 C 99 16 104/74 BP BP BP Pulse Ox 01/13/24 22:20 97 01/13/24 21:51 125/68 106/63 119/63 01/13/24 21:30 97 01/13/24 19:54 99 - Physical Exam General Appearance: positive: No acute distress, Alert Eyes Bilateral: positive: EOMI, No scleral icterus Respiratory: positive: Other (Access cart stethoscope not working; per ER Provider: CTA B/L) Cardiovascular: positive: Other (Access cart stethoscope not working; per ER Pr ovider: RRR, no murmurs) Abdomen: positive: Other (per ER Provider: non-distended, NT, Soft) Extremities: positive: Other (per ER Provider: moves all extrem, no edema; Small left lower extremity wound, covered with clean bandage. When exposed, no signs of cellulitis and it appears to be healing well.) Neurologic/Psychiatric: positive: Oriented x3, Mood/affect nml, Other (per ER Provider: NFD) Conclusion/Plan - Problem List (1) GI bleed Conclusion/Plan: GI Bleed Anemia, macrocytic Melena Hematemesis Hypotension Dizziness Weakness Fatigue -BP 99/83, Hgb 8.3 (down from 12.7 in 10/2023), MCV 105.5 -ER Provider D/W General Surgeon who will consult and possibly do EGD in AM. -Pt was given Morphine in the ER and PRBC 1 unit was ordered. -admit to Med Tele -IVF: bolus then infusion -continue 1U PRBC txn ordered by ER -check FOB -H/H q6h -Protonix 40 mg IV Q12h -check B12/Folate, iron studies -anti-emetics PRN -hold home medications: Eliquis, ASA, Motrin, Mobic, Amlodipine -NPO -mgmt per General Surgeon AFib on Eliquis HTN CAD -BP 99/83 -continue home medications: statin -hold home medications: Eliquis, ASA, Amlodipine LLE wound, healing -continue home medications: Tylenol, HC, Gabapentin -hold home medications: Motrin, Mobic VTE Prophylaxis: SCDs only d/t GI Bleed Code Status: D/W pt; she is DNR/DNI; her daughter has medical POA ~Maite Hutton MD Hospitalist - Lab Results Lab results reviewed: Yes Fish Bones: 01/13/24 20:55 01/13/24 20:55
[2024-01-13] MEDS ORDERED: IPRATROPIUM 0.2 MG/ML NEB INH PRN (22:49)
--- NOTE | 2024-01-13 22:53 | XRAY Report ---
PROCEDURE: Chest 1V INDICATIONS: soa TECHNIQUE: One view of the chest was acquired. COMPARISON: 03/10/2021 FINDINGS: Surgical changes and devices: Left cardiac pacemaker Lungs and pleura: No pleural effusions or pneumothorax. Lungs are clear. Mediastinum: Mediastinal contours appear normal. Heart size is normal. Bones and chest wall: No suspicious bony lesions. Overlying soft tissues appear unremarkable. IMPRESSION: No acute cardiopulmonary process. Reviewed by: Brennen Lisa MD on 01/13/2024 10:51 PM PDT Approved by: Brennen Lisa MD on 01/13/2024 10:51 PM PDT Station ID: [id number]
[2024-01-13 23:09] LABS: HCT - HEMATOCRIT 24.9 % (37.0-47.0); HGB - HEMOGLOBIN 7.9 g/dL (12.0-16.0)
[2024-01-14] MEDS: SODIUM CHLORIDE 0.9% 500 ML IV ONE (00:50)
[2024-01-14] MEDS: PANTOPRAZOLE 40 MG VIAL IVP SCH ×2 (00:55→12:51)
[2024-01-14] MEDS: HYDROcod/ACETAM 5/325 MG TABLET PO PRN (00:58)
[2024-01-14] MEDS: ACETAMINOPHEN 500 MG TABLET PO PRN (03:44)
[2024-01-14] MEDS: LACTATED RINGERS 1,000 ML IV SCH (06:22)
[2024-01-14] MEDS: SODIUM CHLORIDE FLUSH 0.9% 10 ML SYRINGE IVP SCH (06:24)
[2024-01-14] MEDS: ONDANSETRON 4 MG/2 ML VIAL IVP PRN (07:27)
[2024-01-14] MEDS: SODIUM CHLORIDE FLUSH 0.9% 10 ML SYRINGE IVP PRN (07:28)
[2024-01-14 07:29] LABS: BASOPHILS % (AUTO) 0.6 %; EOSINOPHILS % (AUTO) 0.2 %; HCT - HEMATOCRIT 23.9 % (37.0-47.0); HGB - HEMOGLOBIN 7.7 g/dL (12.0-16.0); LYMPHOCYTES # (AUTO) 1.7 10^3/uL (1.5-3.5); LYMPHOCYTES % (AUTO) 27.6 %; MEAN CORPUSCULAR HGB CONC 32.2 g/dL (32.0-36.0); MEAN CORPUSCULAR VOLUME 96.4 fL (81.0-99.0); MEAN PLATELET VOLUME 9.7 fL (7.9-10.8); MONOCYTES # (AUTO) 0.4 10^3/uL (0.0-1.0); MONOCYTES % (AUTO) 6.5 %; NEUTROPHILS # (AUTO) 3.7 10^3/uL (1.5-6.6); NEUTROPHILS % (AUTO) 60.4 %; PLT - PLATELET COUNT 240 10^3/uL (130-450); RED BLOOD COUNT 2.48 10^6/uL (4.20-5.40); RED CELL DISTRIBUTION WIDTH 18.7 % (12.0-15.0); WHITE BLOOD COUNT 6.2 x10^3/uL (4.8-10.8)
[2024-01-14 07:43] LABS: CALCIUM 9.4 mg/dL (8.5-10.3); CREATININE 0.7 mg/dL (0.6-1.3); MAGNESIUM 1.6 mg/dL (1.7-2.3); POTASSIUM 4.4 mmol/L (3.5-4.5)
[2024-01-14] MEDS: MULTIVITAMIN TABLET PO SCH (08:38)
[2024-01-14] MEDS: CHOLECALCIFEROL 25 MCG TABLET PO SCH (08:38)
[2024-01-14 10:58] LABS: HCT - HEMATOCRIT 22.6 % (37.0-47.0); HGB - HEMOGLOBIN 7.1 g/dL (12.0-16.0)
--- NOTE | 2024-01-14 11:22 | PHARMACY PROGRESS NOTE ---
- Best Possible Medication History Admit Date and Time: 01/13/241 Processed by: Pharmacy Medications reviewed in ED?: No Medication History completed: Yes Patient Interview: Pt unable to participate Secondary Source(s): Physician records, Pharmacy records, Insurance records, Previous admit records As the person ultimately responsible for medication therapy, providers are able to order a medication from an existing home medication list in [facility] via the "Reconcile Routine" prior to Confirmation of that medication by data support analyst. Such practice is discouraged except when the physician, in their clinical judgme nt, deems that a medical need exists for a medication without regard to previous use.
[2024-01-14] MEDS: LORazepam 1 MG TABLET PO PRN (12:51)
[2024-01-14 17:21] LABS: HCT - HEMATOCRIT 20.9 % (37.0-47.0)
[2024-01-14 17:26] LABS: HGB - HEMOGLOBIN 6.9 g/dL (12.0-16.0)
--- NOTE | 2024-01-14 17:29 | CONSULTATION NOTE ---
Referring Provider Consult Date: 01/14/24 Chief Complaint - Chief Complaint Chief Complaint: n/v and dark stool and feeling weak History of Present Illness - History Obtained From Records Reviewed: yes History obtained from: pt Exam Limitations: none - History of Present Illness HPI Comment/Other: history of aspirin and meloxicam use. started on eliquis a week ago. ugi bleed with coffee ground emesis and dark stool. last dark stool this am. she feels much improved after medical care. 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 : reports: Incontinence HEENT: reports: Macular degeneration Psych: reports: None Musculoskeletal: reports: None Derm: reports: Other MRSA Hx?: No Other Past Medical History: Pacemaker placed six months ago - Past Surgical History General: reports: Appendectomy Ortho: reports: Other Cardiovascular: reports: Coronary stent - POLST Patient has POLST: No Meds/Allgy - Home Medications Home Medications: Ambulatory Orders Medication Instructions Recorded Confirmed Atorvastatin Calcium [Lipitor] 80 mg PO HS 06/16/13 01/14/24 Gabapentin 400 mg PO QPM 11/20/18 01/14/24 traZODone [Desyrel] 200 mg PO QPM PRN 11/20/18 01/14/24 Meloxicam [Mobic] 7.5 mg PO DAILY 10 Days #10 tablet 07/20/22 01/14/24 Acetaminophen [Acetaminophen Extra 1,000 mg PO TID 10/29/23 01/14/24 Strength] Aspirin EC [Ecotrin] 81 mg PO BID 10/29/23 01/14/24 Oxycodone HCl/Acetaminophen 1 each PO Q4H PRN #8 tablet 01/13/24 [Percocet 5-325 mg Tablet] Diphenoxylate HCl/Atropine 1 - 2 tab PO Q6H PRN 01/14/24 01/14/24 [Diphenoxylate-Atrop 2.5-0.025] HYDROcod/ACET 5/325 Prepack 4 1 tab PO Q6H PRN 01/14/24 01/14/24 [NORCO 5/325 Prepack 4] Ondansetron Odt [Zofran Odt] 4 mg TL Q12H PRN 01/14/24 01/14/24 amLODIPine [Norvasc] 5 mg PO DAILY 01/14/24 01/14/24 cilostazoL [Cilostazol] 50 mg PO BID 01/14/24 01/14/24 - Allergies Allergies/Adverse Reactions: Allergies Allergy/AdvReac Type Severity Reaction Status Date / Time clopidogrel bisulfate * Allergy Severe Rash Verified 01/13/24 20:01 [From Plavix] erythromycin base Allergy Mild Rash Verified 01/13/24 20:01 [Erythromycin Base] Penicillins Allergy Mild Rash Verified 01/13/24 20:01 spironolactone Allergy Mild Rash Verified 01/13/24 20:01 diazepam [From Valium] AdvReac Mild Anxiety Verified 01/13/24 20:01 Review of Systems - Other Findings Other Findings: she has significant comorbidities Exam - Vital Signs Reviewed Vital Signs: Yes Vital Signs: Vital Signs x48h Temp Pulse Pulse Resp BP Pulse Ox O2 Flow Rate 01/14/24 15:24 36.6 C 116 H 20 134/76 H 98 1 01/14/24 12:31 36.5 C 104 H 98 1 01/14/24 10:00 1 01/14/24 09:55 120 H 115/68 99 1 - Physical Exam General Appearance: positive: No acute distress, Alert Eyes Bilateral: positive: PERRL, EOMI Neck: positive: No JVD Respiratory: positive: No respiratory distress Abdomen: positive: Non-tender, No distention Neurologic/Psychiatric: positive: Oriented x3 Conclusion/Plan - Problem List (1) GI bleed due to NSAIDs Conclusion/Plan: agree with current care. she has 50 pack year hx, copd, hx multiple strokes with lucar infarcts, and hx CAD. sats earlier today on standing were in the 70's. she unlikely has a bleeding vessel. 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 ok to have clears. no plan for egd today - Lab Results Lab results reviewed: Yes Fish Bones: 01/14/24 17:15 01/14/24 07:20
--- NOTE | 2024-01-14 19:32 | PROVIDER PROGRESS NOTE ---
Assessment/Plan - Problem List (1) Gastrointestinal hemorrhage Assessment/Plan: Risk factors for gastrointestinal hemorrhage include alcohol use, NSAID use and use of aspirin in addition to recent anticoagulation with apixaban Plan: 1. Continue treatment with pantoprazole. 2. Withhold anticoagulation. 3. SCDs for DVT prophylaxis. 4. Surgery consulted for possible endoscopy procedure. 5. Continue to monitor hemoglobin and hematocrit. (2) Anemia due to acute blood loss Assessment/Plan: Continue to monitor hemoglobin and hematocrit and replace blood products as needed. (3) Atrial fibrillation Assessment/Plan: Withhold anticoagulation - Current Meds Current Meds: Current Medications Generic Name Dose Route Start Last Admin Trade Name Freq PRN Reason Stop Dose Admin Acetaminophen 1,000 mg 01/13/24 22:28 01/14/24 03:44 Acetaminophen 500 Mg Tablet PO 1,000 mg TID PRN Administration PAIN 1-4 Hydrocodone Bitart/Acetaminophen 1 tab 01/13/24 22:28 01/14/24 16:03 Hydrocod/Acetam 5/325 Mg Tablet PO 1 tab Q4HR PRN Administration Pain 5 to 7 Cholecalciferol 50 mcg 01/14/24 09:00 01/14/24 08:38 Cholecalciferol 25 Mcg Tablet PO 50 mcg DAILY NELLY Administration Lactated Ringer's 1,000 mls @ 100 mls/hr 01/13/24 23:00 01/14/24 15:55 Lr IV 100 mls/hr .Q10H NELLY Administration Lorazepam 1 mg 01/14/24 12:27 01/14/24 12:51 Lorazepam 1 Mg Tablet PO 1 mg Q6H PRN Administration Anxiety Multivitamins 1 tab 01/14/24 08:00 01/14/24 08:38 Multivitamin Tablet PO 1 tab DAILYWM NELLY Administration Ondansetron HCl 4 mg 01/13/24 22:31 01/14/24 07:27 Ondansetron 4 Mg/2 Ml Vial IVP 4 mg Q6HR PRN Administration Nausea / Vomiting Pantoprazole Sodium 40 mg 01/14/24 11:00 01/14/24 12:51 Pantoprazole 40 Mg Vial IVP 40 mg BID NELLY Administration Sodium Chloride 10 ml 01/13/24 22:31 01/14/24 07:28 Sodium Chloride Flush 0.9% 10 Ml Syringe IVP 10 ml PRN PRN Administration NEEDED PER PROVIDER ORDERS Sodium Chloride 10 ml 01/14/24 01:00 01/14/24 18:25 Sodium Chloride Flush 0.9% 10 Ml Syringe IVP Not Given 0100,0900,1700 NELLY - Lab Result Fish Bone Diagrams: 01/14/24 17:15 01/14/24 07:20 - Additional Planning My Orders: My Active Orders 01/14/24 11:00 Pantoprazole [Protonix] 40 mg IVP BID 01/14/24 12:27 LORazepam [Ativan] 1 mg PO Q6H PRN 01/14/24 18:54 Transfuse RBCs Leukoreduced [RC] .ONCE 01/14/24 18:59 TYPE AND SCREEN Routine 01/14/24 19:00 RBC, LEUKOREDUCED Routine TYPE AND SCREEN Routine 01/15/24 Breakfast Clear Liquid Diet [DIET] Subjective - Subjective Patient Reports: Other (Alert. Denies chest pain, shortness of breath and abdominal pain.) Objective Vital Signs: Vital Signs - 24 hr 01/13/24 01/13/24 01/13/24 19:54 21:30 21:51 Temperature 36.6 C Heart Rate 99 87 Heart Rate [ Brachial] Heart Rate [ Monitoring electrodes] Heart Rate [ 98 Sitting] Heart Rate [ 98 Standing] Heart Rate [ 93 Supine] Respiratory 16 16 Rate Blood Pressure 104/74 99/83 H Blood Pressure [Right Brachial artery] Blood Pressure 125/68 [Sitting] Blood Pressure 106/63 [Standing] Blood Pressure 119/63 [Supine] O2 Saturation 99 97 If not protocol : Oxygen Flow, liters/minute 01/13/24 01/14/24 01/14/24 22:20 00:00 03:10 Temperature 36.5 C 36.7 C Heart Rate 89 88 Heart Rate [ Brachial] Heart Rate [ 82 118 H Monitoring electrodes] Heart Rate [ Sitting] Heart Rate [ Standing] Heart Rate [ Supine] Respiratory 16 18 12 Rate Blood Pressure 109/72 136/72 H Blood Pressure 155/75 H 141/80 H [Right Brachial artery] Blood Pressure [Sitting] Blood Pressure [Standing] Blood Pressure [Supine] O2 Saturation 97 96 96 If not protocol : Oxygen Flow, liters/minute 01/14/24 01/14/24 01/14/24 03:27 05:34 06:17 Temperature 36.7 C 36.7 C 36.6 C Heart Rate Heart Rate [ Brachial] Heart Rate [ 98 110 H 82 Monitoring electrodes] Heart Rate [ Sitting] Heart Rate [ Standing] Heart Rate [ Supine] Respiratory 20 18 16 Rate Blood Pressure Blood Pressure 111/58 L 120/76 112/63 [Right Brachial artery] Blood Pressure [Sitting] Blood Pressure [Standing] Blood Pressure [Supine] O2 Saturation 98 98 98 If not protocol : Oxygen Flow, liters/minute 01/14/24 01/14/24 01/14/24 07:44 09:55 10:00 Temperature 36.5 C Heart Rate Heart Rate [ 95 Brachial] Heart Rate [ 120 H Monitoring electrodes] Heart Rate [ Sitting] Heart Rate [ Standing] Heart Rate [ Supine] Respiratory 20 Rate Blood Pressure Blood Pressure 129/70 115/68 [Right Brachial artery] Blood Pressure [Sitting] Blood Pressure [Standing] Blood Pressure [Supine] O2 Saturation 98 99 If not protocol 1 1 : Oxygen Flow, liters/minute 01/14/24 01/14/24 12:31 15:24 Temperature 36.5 C 36.6 C Heart Rate Heart Rate [ 104 H 116 H Brachial] Heart Rate [ Monitoring electrodes] Heart Rate [ Sitting] Heart Rate [ Standing] Heart Rate [ Supine] Respiratory 20 Rate Blood Pressure Blood Pressure 134/76 H [Right Brachial artery] Blood Pressure [Sitting] Blood Pressure [Standing] Blood Pressure [Supine] O2 Saturation 98 98 If not protocol 1 1 : Oxygen Flow, liters/minute Oxygen O2 Source Nasal cannula I&O (Last 24 Hrs): Intake and Output Totals x24h 01/12/24 01/13/24 01/14/24 23:59 23:59 23:59 Intake Total 1255 Balance 1255 General: Alert, Oriented x3, No acute distress Neck: Supple, No JVD Neuro: Alert, Non Focal Cardiovascular: Other (Positive S1-S2 no extra heart sounds.) Respiratory: Other (Good air exchange in all lung pond no wheezing no crackles) Abdomen: Soft, Other Extremities: No cyanosis, No edema - Results Results: Laboratory Results WBC 6.2 x10^3/uL (4.8-10.8) 01/14/24 07:20 RBC 2.48 10^6/uL (4.20-5.40) L 01/14/24 07:20 Hgb 6.9 g/dL (12.0-16.0) L* 01/14/24 17:15 Hct 20.9 % (37.0-47.0) L 01/14/24 17:15 MCV 96.4 fL (81.0-99.0) 01/14/24 07:20 MCH 31.0 pg (27.0-31.0) 01/14/24 07:20 MCHC 32.2 g/dL (32.0-36.0) 01/14/24 07:20 RDW 18.7 % (12.0-15.0) H 01/14/24 07:20 Plt Count 240 10^3/uL (130-450) 01/14/24 07:20 MPV 9.7 fL (7.9-10.8) 01/14/24 07:20 Neut # (Auto) 3.7 10^3/uL (1.5-6.6) 01/14/24 07:20 Lymph # (Auto) 1.7 10^3/uL (1.5-3.5) 01/14/24 07:20 Bay # (Auto) 0.4 10^3/uL (0.0-1.0) 01/14/24 07:20 Eos # (Auto) 0.0 10^3/uL (0.0-0.7) 01/14/24 07:20 Baso # (Auto) 0.0 10^3/uL (0.0-0.1) 01/14/24 07:20 Absolute Nucleated RBC 0.00 x10^3/uL 01/14/24 07:20 Band Neuts % (Manual) Not Reportable 01/13/24 20:55 Abnorm Lymph % (Manual) Not Reportable 01/13/24 20:55 Nucleated RBC % 0.0 /100WBC 01/14/24 07:20 Neutrophils # (Manual) Not Reportable 01/13/24 20:55 Lymphocytes # (Manual) Not Reportable 01/13/24 20:55 Monocytes # (Manual) Not Reportable 01/13/24 20:55 Eosinophils # (Manual) Not Reportable 01/13/24 20:55 Basophils # (Manual) Not Reportable 01/13/24 20:55 Differential Comment MANUAL=AUTO DIFF 01/13/24 20:55 Manual Slide Review Indicated 01/13/24 20:55 Platelet Estimate NORMAL (130-450,000) (NORMAL) 01/13/24 20:55 Platelet Morphology NORMAL APPEARANCE (NORMAL) 01/13/24 20:55 RBC Morph Micro Appear H (NORMAL) 01/13/24 20:55 Sodium 139 mmol/L (135-145) 01/14/24 07:20 Potassium 4.4 mmol/L (3.5-4.5) 01/14/24 07:20 Chloride 110 mmol/L (101-111) 01/14/24 07:20 Carbon Dioxide 23 mmol/L (21-32) 01/14/24 07:20 Anion Gap 6.0 (6-13) 01/14/24 07:20 BUN 67 mg/dL (6-20) H 01/14/24 07:20 Creatinine 0.7 mg/dL (0.6-1.3) 01/14/24 07:20 Estimated GFR (MDRD) 80 (>89) L 01/14/24 07:20 Glucose 127 mg/dL (74-104) H 01/14/24 07:20 Calcium 9.4 mg/dL (8.5-10.3) 01/14/24 07:20 Magnesium 1.6 mg/dL (1.7-2.3) L 01/14/24 07:20 Iron 239 ug/dL (50-212) H 01/14/24 07:20 TIBC 259 ug/dL (250-450) 01/14/24 07:20 % Saturation 92 % (20-50) H 01/14/24 07:20 Transferrin 185 mg/dL (203-362) L 01/14/24 07:20 Total Bilirubin 0.4 mg/dL (0.2-1.0) 01/13/24 20:55 AST 16 IU/L (10-42) 01/13/24 20:55 ALT 21 IU/L (10-60) 01/13/24 20:55 Alkaline Phosphatase 72 IU/L (42-121) 01/13/24 20:55 Total Protein 6.0 g/dL (6.4-8.9) L 01/13/24 20:55 Albumin 4.0 g/dL (3.2-5.5) 01/13/24 20:55 Globulin 2.0 g/dL (2.1-4.2) L 01/13/24 20:55 Albumin/Globulin Ratio 2.0 (1.0-2.2) 01/13/24 20:55 Lipase 15 U/L (11-82) 01/13/24 20:55 Vitamin B12 457 pg/mL (180-914) 01/14/24 07:20 Blood Type O POSITIVE 01/13/24 22:02 Antibody Screen NEGATIVE 01/13/24 22:02 Crossmatch IS Only See Detail 01/13/24 22:02 - Procedures Procedures: Procedures EXCISION OF STOMACH, ENDO, DIAGN (08/26/15) TRANSFUSE NONAUT RED BLOOD CELLS IN PERIPH VEIN, PERC (08/26/15)
[2024-01-14] MEDS: ATORVASTATIN 40 MG TABLET PO SCH (20:11)
[2024-01-14] MEDS: GABAPENTIN 400 MG CAPSULE PO SCH (20:12)
[2024-01-15 01:16] LABS: HCT - HEMATOCRIT 20.3 % (37.0-47.0)
[2024-01-15 01:18] LABS: HGB - HEMOGLOBIN 6.4 g/dL (12.0-16.0)
--- NOTE | 2024-01-15 09:23 | PROVIDER PROGRESS NOTE ---
Assessment/Plan - Problem List (1) Gastrointestinal hemorrhage Assessment/Plan: Risk factors for gastrointestinal hemorrhage include alcohol use, NSAID use and use of aspirin in addition to recent anticoagulation with apixaban Plan: 1. Continue treatment with IV pantoprazole 40 mg BID 2. Withhold anticoagulation. 3. SCDs for DVT prophylaxis. 4. It is Dr. Lees opinion that patient would not benefit from an endoscopy procedure at this time. He recommended starting a clear liquid diet. Continue to monitor. Patient has a long history of alcohol use and is at risk for esopageal varices. Her GI hemorrhage is most likely an upper gastrointestinal hemorrhage and may be related to NSAID, aspirin and alcohol use. 5. Continue to monitor hemoglobin and hematocrit. (2) Anemia due to acute blood loss Assessment/Plan: Continue to monitor hemoglobin and hematocrit and replace blood products as needed. Since admission, patient has received 2 units of packed red blood cells and hemoglobin/hematocrit is currently 7.9/24.3 with a platelet count of 205. She is not medically cleared for discharge at this time. Recommend she have 3 stable hemoglobin/hematocrit prior to discharge.If she has evidence of recurrent hemorrhage, reconsult general surgery for reevaluation. (3) Atrial fibrillation Assessment/Plan: Withhold anticoagulation - Current Meds Current Meds: Current Medications Generic Name Dose Route Start Last Admin Trade Name Freq PRN Reason Stop Dose Admin Acetaminophen 1,000 mg 01/13/24 22:28 01/14/24 03:44 Acetaminophen 500 Mg Tablet PO 1,000 mg TID PRN Administration PAIN 1-4 Hydrocodone Bitart/Acetaminophen 1 tab 01/13/24 22:28 01/15/24 06:08 Hydrocod/Acetam 5/325 Mg Tablet PO 1 tab Q4HR PRN Administration Pain 5 to 7 Atorvastatin Calcium 80 mg 01/14/24 21:00 01/14/24 20:11 Atorvastatin 40 Mg Tablet PO 80 mg HS NELLY Administration Cholecalciferol 50 mcg 01/14/24 09:00 01/15/24 08:05 Cholecalciferol 25 Mcg Tablet PO 50 mcg DAILY NELLY Administration Gabapentin 400 mg 01/14/24 21:00 01/14/24 20:12 Gabapentin 400 Mg Capsule PO 400 mg QPM NELLY Administration Lactated Ringer's 1,000 mls @ 100 mls/hr 01/13/24 23:00 01/15/24 07:30 Lr IV 100 mls/hr .Q10H NELLY Infusion Lorazepam 1 mg 01/14/24 12:27 01/14/24 21:01 Lorazepam 1 Mg Tablet PO 1 mg Q6H PRN Administration Anxiety Multivitamins 1 tab 01/14/24 08:00 01/15/24 08:05 Multivitamin Tablet PO 1 tab DAILYWM NELLY Administration Ondansetron HCl 4 mg 01/13/24 22:31 01/14/24 07:27 Ondansetron 4 Mg/2 Ml Vial IVP 4 mg Q6HR PRN Administration Nausea / Vomiting Pantoprazole Sodium 40 mg 01/14/24 11:00 01/15/24 08:05 Pantoprazole 40 Mg Vial IVP 40 mg BID NELLY Administration Sodium Chloride 10 ml 01/13/24 22:31 01/14/24 20:11 Sodium Chloride Flush 0.9% 10 Ml Syringe IVP 10 ml PRN PRN Administration NEEDED PER PROVIDER ORDERS Sodium Chloride 10 ml 01/14/24 01:00 01/15/24 08:08 Sodium Chloride Flush 0.9% 10 Ml Syringe IVP 10 ml 0100,0900,1700 NELLY Administration - Lab Result Fish Bone Diagrams: 01/15/24 09:30 01/15/24 09:30 - Additional Planning My Orders: My Active Orders 01/14/24 11:00 Pantoprazole [Protonix] 40 mg IVP BID 01/14/24 12:27 LORazepam [Ativan] 1 mg PO Q6H PRN 01/14/24 18:54 Transfuse RBCs Leukoreduced [RC] .ONCE 01/15/24 Breakfast Clear Liquid Diet [DIET] Subjective - Subjective Patient Reports: Other (Alert. Reports her abdominal discomfort has improved. She denies shortness of breath and chest pain. She has no other complaints at this time.) Objective Vital Signs: Vital Signs - 24 hr 01/14/24 01/14/24 01/14/24 09:55 10:00 12:31 Temperature 36.5 C Heart Rate [ 104 H Brachial] Heart Rate [ 120 H Monitoring electrodes] Respiratory Rate Blood Pressure 115/68 [Right Brachial artery] O2 Saturation 99 98 If not protocol 1 1 1 : Oxygen Flow, liters/minute 01/14/24 01/14/24 01/14/24 15:24 20:00 20:47 Temperature 36.6 C 36.6 C 36.8 C Heart Rate [ 116 H 94 101 H Brachial] Heart Rate [ Monitoring electrodes] Respiratory 24 Rate Blood Pressure 134/76 H 110/64 117/61 [Right Brachial artery] O2 Saturation 98 97 95 If not protocol 1 1 1 : Oxygen Flow, liters/minute 01/14/24 01/14/24 01/14/24 21:03 23:26 23:56 Temperature 36.6 C 36.7 C 36.6 C Heart Rate [ 101 H 81 93 Brachial] Heart Rate [ Monitoring electrodes] Respiratory 22 20 17 Rate Blood Pressure 114/60 105/50 L 124/62 [Right Brachial artery] O2 Saturation 95 96 98 If not protocol 1 1 : Oxygen Flow, liters/minute 01/15/24 01/15/24 01/15/24 02:44 03:05 06:17 Temperature 36.5 C 36.6 C 36.6 C Heart Rate [ 76 77 76 Brachial] Heart Rate [ Monitoring electrodes] Respiratory 18 18 16 Rate Blood Pressure 107/65 112/51 L 113/56 L [Right Brachial artery] O2 Saturation 98 97 98 If not protocol 1 1 1 : Oxygen Flow, liters/minute Oxygen O2 Source Nasal cannula I&O (Last 24 Hrs): Intake and Output Totals x24h 01/13/24 01/14/24 01/15/24 23:59 23:59 23:59 Intake Total 2946.667 1191.667 Balance 2946.667 1191.667 General: Alert, Oriented x3 HEENT: Atraumatic Neck: No JVD, No thyromegaly Neuro: Alert, Non Focal Cardiovascular: Other (Positive S1-S2 no extra heart sounds.) Respiratory: Other (Good air exchange in all lung pond no wheezing no crack les.) Abdomen: Other (Soft nontender nondistended positive bowel sounds.) Extremities: No cyanosis, No edema Skin: No rashes - Results Results: Laboratory Results WBC 6.2 x10^3/uL (4.8-10.8) 01/14/24 07:20 RBC 2.48 10^6/uL (4.20-5.40) L 01/14/24 07:20 Hgb 6.4 g/dL (12.0-16.0) L* 01/15/24 01:11 Hct 20.3 % (37.0-47.0) L 01/15/24 01:11 MCV 96.4 fL (81.0-99.0) 01/14/24 07:20 MCH 31.0 pg (27.0-31.0) 01/14/24 07:20 MCHC 32.2 g/dL (32.0-36.0) 01/14/24 07:20 RDW 18.7 % (12.0-15.0) H 01/14/24 07:20 Plt Count 240 10^3/uL (130-450) 01/14/24 07:20 MPV 9.7 fL (7.9-10.8) 01/14/24 07:20 Neut # (Auto) 3.7 10^3/uL (1.5-6.6) 01/14/24 07:20 Lymph # (Auto) 1.7 10^3/uL (1.5-3.5) 01/14/24 07:20 [place] # (Auto) 0.4 10^3/uL (0.0-1.0) 01/14/24 07:20 Eos # (Auto) 0.0 10^3/uL (0.0-0.7) 01/14/24 07:20 Baso # (Auto) 0.0 10^3/uL (0.0-0.1) 01/14/24 07:20 Absolute Nucleated RBC 0.00 x10^3/uL 01/14/24 07:20 Band Neuts % (Manual) Not Reportable 01/13/24 20:55 Abnorm Lymph % (Manual) Not Reportable 01/13/24 20:55 Nucleated RBC % 0.0 /100WBC 01/14/24 07:20 Neutrophils # (Manual) Not Reportable 01/13/24 20:55 Lymphocytes # (Manual) Not Reportable 01/13/24 20:55 Monocytes # (Manual) Not Reportable 01/13/24 20:55 Eosinophils # (Manual) Not Reportable 01/13/24 20:55 Basophils # (Manual) Not Reportable 01/13/24 20:55 Differential Comment MANUAL=AUTO DIFF 01/13/24 20:55 Manual Slide Review Indicated 01/13/24 20:55 Platelet Estimate NORMAL (130-450,000) (NORMAL) 01/13/24 20:55 Platelet Morphology NORMAL APPEARANCE (NORMAL) 01/13/24 20:55 RBC Morph Micro Appear H (NORMAL) 01/13/24 20:55 Sodium 139 mmol/L (135-145) 01/14/24 07:20 Potassium 4.4 mmol/L (3.5-4.5) 01/14/24 07:20 Chloride 110 mmol/L (101-111) 01/14/24 07:20 Carbon Dioxide 23 mmol/L (21-32) 01/14/24 07:20 Anion Gap 6.0 (6-13) 01/14/24 07:20 BUN 67 mg/dL (6-20) H 01/14/24 07:20 Creatinine 0.7 mg/dL (0.6-1.3) 01/14/24 07:20 Estimated GFR (MDRD) 80 (>89) L 01/14/24 07:20 Glucose 127 mg/dL (74-104) H 01/14/24 07:20 Calcium 9.4 mg/dL (8.5-10.3) 01/14/24 07:20 Magnesium 1.6 mg/dL (1.7-2.3) L 01/14/24 07:20 Iron 239 ug/dL (50-212) H 01/14/24 07:20 TIBC 259 ug/dL (250-450) 01/14/24 07:20 % Saturation 92 % (20-50) H 01/14/24 07:20 Transferrin 185 mg/dL (203-362) L 01/14/24 07:20 Total Bilirubin 0.4 mg/dL (0.2-1.0) 01/13/24 20:55 AST 16 IU/L (10-42) 01/13/24 20:55 ALT 21 IU/L (10-60) 01/13/24 20:55 Alkaline Phosphatase 72 IU/L (42-121) 01/13/24 20:55 Total Protein 6.0 g/dL (6.4-8.9) L 01/13/24 20:55 Albumin 4.0 g/dL (3.2-5.5) 01/13/24 20:55 Globulin 2.0 g/dL (2.1-4.2) L 06/20/24 20:55 Albumin/Globulin Ratio 2.0 (1.0-2.2) 01/13/24 20:55 Lipase 15 U/L (11-82) 01/13/24 20:55 Vitamin B12 457 pg/mL (180-914) 01/14/24 07:20 Blood Type O POSITIVE 01/13/24 22:02 Antibody Screen NEGATIVE 01/13/24 22:02 Crossmatch IS Only See Detail 01/13/24 22:02 - Procedures Procedures: Procedures EXCISION OF STOMACH, ENDO, DIAGN (08/26/15) TRANSFUSE NONAUT RED BLOOD CELLS IN PERIPH VEIN, PERC (08/26/15)
[2024-01-15 09:37] LABS: BASOPHILS % (AUTO) 0.4 %; EOSINOPHILS % (AUTO) 0.7 %; HCT - HEMATOCRIT 24.3 % (37.0-47.0); HGB - HEMOGLOBIN 7.9 g/dL (12.0-16.0); LYMPHOCYTES % (AUTO) 15.5 %; MEAN CORPUSCULAR HEMOGLOBIN 31.6 pg (27.0-31.0); MEAN CORPUSCULAR HGB CONC 32.5 g/dL (32.0-36.0); MEAN CORPUSCULAR VOLUME 97.2 fL (81.0-99.0); MEAN PLATELET VOLUME 9.1 fL (7.9-10.8); MONOCYTES % (AUTO) 6.5 %; NEUTROPHILS % (AUTO) 66.9 %; PLT - PLATELET COUNT 205 10^3/uL (130-450); RED CELL DISTRIBUTION WIDTH 17.2 % (12.0-15.0); WHITE BLOOD COUNT 7.2 x10^3/uL (4.8-10.8)
[2024-01-15 09:40] LABS: SLIDE REVIEW? Indicated
[2024-01-15 09:41] LABS: ABNORMAL LYMPHS % (MANUAL) 0 %
[2024-01-15 09:56] LABS: CALCIUM 9.3 mg/dL (8.5-10.3); CREATININE 0.7 mg/dL (0.6-1.3); MAGNESIUM 1.7 mg/dL (1.7-2.3); POTASSIUM 3.9 mmol/L (3.5-4.5)
[2024-01-15 10:11] LABS: BAND NEUTROPHILS % (MANUAL) 3 %; LYMPHOCYTES # (MANUAL) 1.2 10^3/uL (1.5-3.5); LYMPHOCYTES % (MANUAL) 17 %; MONOCYTES # (MANUAL) 0.4 10^3/uL (0.0-1.0); NEUTROPHILS # (MANUAL) 5.6 10^3/uL (1.5-6.6)
[2024-01-15 10:12] LABS: DIFFERENTIAL COMMENT MANUAL DIFFERENTIAL
[2024-01-15 10:13] LABS: PLATELET ESTIMATE, MANUAL NORMAL (130-450,000) (NORMAL); PLATELET MORPHOLOGY NORMAL APPEARANCE (NORMAL); WBC MORPHOLOGY (MULTIPLE) NORMAL APP (NORMAL)
[2024-01-15 16:14] LABS: HGB - HEMOGLOBIN 7.7 g/dL (12.0-16.0)
[2024-01-15 21:59] LABS: HCT - HEMATOCRIT 23.5 % (37.0-47.0); HGB - HEMOGLOBIN 7.5 g/dL (12.0-16.0)
[2024-01-16 04:37] LABS: BASOPHILS # (AUTO) 0.1 10^3/uL (0.0-0.1); BASOPHILS % (AUTO) 0.9 %; EOSINOPHILS # (AUTO) 0.2 10^3/uL (0.0-0.7); EOSINOPHILS % (AUTO) 2.7 %; HCT - HEMATOCRIT 23.1 % (37.0-47.0); HGB - HEMOGLOBIN 7.5 g/dL (12.0-16.0); LYMPHOCYTES # (AUTO) 1.2 10^3/uL (1.5-3.5); LYMPHOCYTES % (AUTO) 22.2 %; MEAN CORPUSCULAR HEMOGLOBIN 32.1 pg (27.0-31.0); MEAN CORPUSCULAR HGB CONC 32.5 g/dL (32.0-36.0); MEAN CORPUSCULAR VOLUME 98.7 fL (81.0-99.0); MEAN PLATELET VOLUME 9.9 fL (7.9-10.8); MONOCYTES # (AUTO) 0.4 10^3/uL (0.0-1.0); MONOCYTES % (AUTO) 6.9 %; NEUTROPHILS # (AUTO) 3.2 10^3/uL (1.5-6.6); NEUTROPHILS % (AUTO) 58.3 %; PLT - PLATELET COUNT 212 10^3/uL (130-450); RED BLOOD COUNT 2.34 10^6/uL (4.20-5.40); RED CELL DISTRIBUTION WIDTH 17.2 % (12.0-15.0); WHITE BLOOD COUNT 5.5 x10^3/uL (4.8-10.8)
[2024-01-16 04:52] LABS: SLIDE REVIEW? Indicated
[2024-01-16 04:54] LABS: CREATININE 0.6 mg/dL (0.6-1.3); MAGNESIUM 1.7 mg/dL (1.7-2.3); POTASSIUM 3.6 mmol/L (3.5-4.5)
[2024-01-16 05:21] LABS: PLATELET ESTIMATE, MANUAL NORMAL (130-450,000) (NORMAL); PLATELET MORPHOLOGY NORMAL APPEARANCE (NORMAL)
[2024-01-16] MEDS: PANTOPRAZOLE 40 MG TABLET PO SCH (08:39)
--- NOTE | 2024-01-16 12:32 | Discharge Plan ---
Discharge Plan Problem Reviewed?: Yes Disposition: 01 Home, Self Care Condition: Stable Prescriptions: Oxycodone HCl/Acetaminophen [Percocet 5-325 mg Tablet] 1 each PO Q4H PRN #8 tablet PRN Reason: Pain >8 Pantoprazole [Protonix] 40 mg PO BID #60 tab Pantoprazole [Protonix] 40 mg PO DAILY #30 tablet Pantoprazole [Protonix] 40 mg PO DAILY #60 tablet Diet: Soft Activity Restrictions: Activity as Tolerated Shower Restrictions: No Driving Restrictions: No Assistance Devices: Walker Weight Bearing: Full Weight Instruction Topics: ED RICE Health Concerns: History of Present Illness: Karolyn Keith is an 83-year-old woman admitted on January 13, 2024 with complaints of melena. Patient has a past medical history significant for paroxysmal atrial fibrillation and treatment was initiated with apixaban 1 week prior to her admission. Patient also takes meloxicam, aspirin and reportedly may drink alcohol. Hospital Course: She was admitted to the medical floor as an inpatient. Treatment was initiated with pantoprazole 40 mg twice daily intravenously and then transition to 40 mg twice daily by mouth. On admission, hemoglobin hematocrit were 6.9/20.9. Patient was transfused with 2 units packed red blood cells during her hospitalization. She remained hemodynamically stable throughout her hospitalization. She had no significant arrhythmias except for her baseline intermittent paroxysmal atrial fibrillation. On January 14, 2024, general surgery was consulted for endoscopy procedure. Dr. Edgar Lees felt she was at too high risk for an endoscopy procedure and recommended empiric treatment with proton pump inhibitors. Over the last 24 hours, hemoglobin/hematocrit have remained stable and patient can be discharged to home at this time. CODE STATUS: DO NOT RESUSCITATE. Plan of Treatment: 1. Continue all medications as prescribed. 2. Withhold apixaban (Eliquis) for 2 weeks and then reinitiate therapy unless instructed otherwise by your primary care provider. 3. Please take pantoprazole 40 mg twice daily for 4 weeks and then transition to 40 mg once daily for 60 days. Please discuss with your primary care provider whether you should should continue to take pantoprazole for an extended period of time. 4. Please stop taking meloxicam and aspirin. Recommend discontinuing the meloxicam and aspirin indefinitely unless Dr. Baugh decides to reinitiate treatment with those medications at a later date. 5. Please do not drink any alcohol. 6. Please either obtain a urea breath test or stool antigen assay for Helicobacter pylori. Unfortunately these tests could not be performed in the hospital. 7. Recommend consultation with a telecommunications field engineer to evaluate for endoscopy procedure as an outpatient. 8. Please follow-up with Dr. Dyllan Baugh in 2-4 weeks. Care Goals: Goal of care is to return to baseline function and to avoid future episodes of gastrointestinal hemorrhage. Assessment: (1) Gastrointestinal hemorrhage Assessment/Plan: Risk factors for gastrointestinal hemorrhage include alcohol use, NSAID use and use of aspirin in addition to recent anticoagulation with apixaban Plan: 1. Continue treatment with Pantoprazole 40 mg twice daily for 4 weeks and then pantoprazole 40 mg daily for 8 weeks. 2. Withhold anticoagulation for 14 more days and then reinitiate treatment with apixaban or another anticoagulant such as warfarin. Please discuss with your primary care provider. 3. It is Dr. Lees opinion that patient would not benefit from an endoscopy procedure at this time. Continue to monitor. Patient has a long history of alcohol use and is at risk for esopageal varices. Her GI hemorrhage is most likely an upper gastrointestinal hemorrhage and may be related to NSAID, aspirin and alcohol use. 4. Recommend patient undergo an endoscopy procedure as an outpatient. Recommend consultation with gastroenterology. 5. Continue to monitor hemoglobin and hematocrit intermittently as an outpatient. (2) Anemia due to acute blood loss Assessment/Plan: Since admission, patient has received 2 units of packed red blood cells and hemoglobin/hematocrit is currently stable at 7.5/23.1 with a platelet count of 212K. (3) Atrial fibrillation Assessment/Plan: Recommend withholding anticoagulation for 14 days then Reinitiate treatment with apixaban or another anticoagulant per primary care provider Additional Instructions or Follow Up instructions: You were seen in the emergency department for leg pain. Pain meds sent to [facility]. Do not use when driving or operating heavy machinery. Dispose of any unused pills at your local police station. This medication may cause constipation. If you are prone to constipation then please take with [id number] sennadocusate and MiraLAX. Please follow-up with your primary care provider and return to the emergency department if you have any new or worsening symptoms or other concerns. No Smoking: If you smoke, Please STOP! Call for help. Follow-up with: Dyllan Baugh MD [Primary Care Provider] -
--- NOTE | 2024-01-16 12:32 | DISCHARGE SUMMARY ---
"Discharge Summary Admit Date: 01/13/24 Discharge Date: 01/16/24 Discharging Provider: Bo Webster MD Primary Care Provider: Dyllan Baugh MD Code Status: Do Not Attempt Resuscitation Condition at Discharge: Stable Discharge Disposition: 01 Home, Self Care Discharge Facility Name: [facility] - DIAGNOSES Admission Diagnoses: (1) Gastrointestinal hemorrhage (2) Anemia due to acute blood loss Discharge Diagnoses with Status of Each Condition: (1) Gastrointestinal hemorrhage (2) Anemia due to acute blood loss (3) Atrial fibrillation - HPI History of Present Illness: Karolyn Keith is an 83-year-old woman admitted on January 13, 2024 with complaints of melena. Patient has a past medical history significant for paroxysmal atrial fibrillation and treatment was initiated with apixaban 1 week prior to her a dmission. Patient also takes meloxicam, aspirin and reportedly may drink alcohol. - CONSULTS | PROCEDURES Consultations: 01/14/2024 General Surgery (Dr. Edgar Lees) - HOSPITAL COURSE Hospital Course: She was admitted to the medical floor as an inpatient. Treatment was initiated with pantoprazole 40 mg twice daily intravenously and then transition to 40 mg twice daily by mouth. On admission, hemoglobin hematocrit were 6.9/20.9. Patient was transfused with 2 units packed red blood cells during her hospitalization. She remained hemodynamically stable throughout her hospitalization. She had no significant arrhythmias except for her baseline intermittent paroxysmal atrial fibrillation. On January 14, 2024, general surgery was consulted for endoscopy procedure. Dr. Edgar Lees felt she was at too high risk for an endoscopy procedure and recommended empiric treatment with proton pump inhibitors. Over the last 24 hours, hemoglobin/hematocrit have remained stable and patient can be discharged to home at this time. CODE STATUS: DO NOT RESUSCITATE. - ALLERGIES Allergies/Adverse Reactions: Allergies Allergy/AdvReac Type Severity Reaction Status Date / Time clopidogrel bisulfate * Allergy Severe Rash Verified 01/13/24 20:01 [From Plavix] erythromycin base Allergy Mild Rash Verified 01/13/24 20:01 [Erythromycin Base] Penicillins Allergy Mild Rash Verified 01/13/24 20:01 spironolactone Allergy Mild Rash Verified 01/13/24 20:01 diazepam [From Valium] AdvReac Mild Anxiety Verified 01/13/24 20:01 - MEDICATIONS Home Medications: Ambulatory Orders Medication Instructions Recorded Confirmed Atorvastatin Calcium [Lipitor] 80 mg PO HS 06/16/13 01/14/24 Gabapentin 400 mg PO QPM 11/20/18 01/14/24 traZODone [Desyrel] 200 mg PO QPM PRN 11/20/18 01/14/24 Meloxicam [Mobic] 7.5 mg PO DAILY 10 Days #10 tablet 07/20/22 01/14/24 Acetaminophen [Acetaminophen Extra 1,000 mg PO TID 10/29/23 01/14/24 Strength] Oxycodone HCl/Acetaminophen 1 each PO Q4H PRN #8 tablet 01/13/24 [Percocet 5-325 mg Tablet] Diphenoxylate HCl/Atropine 1 - 2 tab PO Q6H PRN 01/14/24 01/14/24 [Diphenoxylate-Atrop 2.5-0.025] HYDROcod/ACET 5/325 Prepack 4 1 tab PO Q6H PRN 01/14/24 01/14/24 [NORCO 5/325 Prepack 4] Ondansetron Odt [Zofran Odt] 4 mg TL Q12H PRN 01/14/24 01/14/24 amLODIPine [Norvasc] 5 mg PO DAILY 01/14/24 01/14/24 cilostazoL [Cilostazol] 50 mg PO BID 01/14/24 01/14/24 Multivitamin [Theragran] 1 tab PO DAILYWM tab 01/16/24 Pantoprazole [Protonix] 40 mg PO BID #60 tab 01/16/24 Pantoprazole [Protonix] 40 mg PO DAILY #30 tablet 01/16/24 Pantoprazole [Protonix] 40 mg PO DAILY #60 tablet 01/16/24 - PHYSICAL EXAM AT DISCHARGE General Appearance: positive: No acute distress, Alert Eyes Bilateral: positive: Conjunctivae nml, No scleral icterus Neck: positive: No JVD, Trachea midline Respiratory: positive: Other (Good air exchange in all lung pond no wheezing no crackles.) Cardiovascular: positive: Other (Positive S1-S2 no extra heart sounds.) Abdomen: positive: Other (Soft nontender nondistended positive bowel sounds.) Skin: positive: No rash Extremities: positive: No pedal edema Neurologic/Psychiatric: positive: Oriented x3, Motor nml - LABS Result Diagrams: 01/16/24 04:10 01/16/24 04:10 - QUALITY (Female Hip Fx Only) Was patient sent home on osteoporosis medication?: No - FOLLOW UP Follow Up: Please follow-up with Dr. Dyllan Baugh in 2-4 weeks - TIME SPENT Time Spent in Discharge (Minutes): 33 (33 minutes spent coordinating discharge for Karolyn Griggs. Time was spent writing prescriptions, discussing with pharmacy, and counseling patient and family with regard to her discharge.)"
[2024-01-16 13:12] VITALS: O2SAT 98
[2024-01-16 15:24] VITALS: BP 127/67
[2024-01-17 20:07] LABS: FOLATE HEMOLYSATE 423.6 ng/mL (Not Estab.); FOLATE RBC 1810 ng/mL (>498); HEMATOCRIT 23.4 % (34.0-46.6)
== END 2024-01-16 15:42 | disposition home or self-care (01) | DRG 378 ==
LOC: EDUNIT# → ED 19:54 → MS2 22:31
PROVIDERS: ADMIT Internal Medicine; ATTEND Internal Medicine
PROC: 30233N1 Transfusion of Nonautologous Red Blood Cells into Peripheral Vein, Percutaneous Approach (ICD-10-PCS; principal; 2024-01-14)
DX: M79.605 Pain in left leg (principal); R06.02 Shortness of breath; R55 Syncope and collapse; R11.2 Nausea with vomiting, unspecified; D64.9 Anemia, unspecified; K92.0 Hematemesis; D62 Acute posthemorrhagic anemia; K92.1 Melena; I48.0 Paroxysmal atrial fibrillation; I10 Essential (primary) hypertension; I25.10 Atherosclerotic heart disease of native coronary artery without angina pectoris; I25.2 Old myocardial infarction; I95.9 Hypotension, unspecified; J44.9 Chronic obstructive pulmonary disease, unspecified; S81.802D Unspecified open wound, left lower leg, subsequent encounter; X58.XXXD Exposure to other specified factors, subsequent encounter; R42 Dizziness and giddiness; R53.1 Weakness; R53.83 Other fatigue; Z66 Do not resuscitate; Z79.01 Long term (current) use of anticoagulants; Z79.82 Long term (current) use of aspirin; Z87.891 Personal history of nicotine dependence; Z88.0 Allergy status to penicillin; Z88.8 Allergy status to other drugs, medicaments and biological substances; Z90.49 Acquired absence of other specified parts of digestive tract; Z95.0 Presence of cardiac pacemaker; Z95.5 Presence of coronary angioplasty implant and graft
CPT/HCPCS: 36415; 71045; 80048; 80053; 82607; 82747; 83540; 83690; 83735; 84466; 85014; 85018; 85025; 86850; 86900; 86901; 86920; 96374; 99284; 99285; A9270; J7120; J8499; P9016; 82274; 83013; 85027; 87338

== ENCOUNTER 2024-03-30 09:46 | Outpatient (CLI) | payer MEDICARE, OTHER ==
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
== END 2024-03-30 09:47 | disposition home or self-care (01) ==
LOC: DI 09:46
PROVIDERS: ATTEND Student in an Organized Health Care Education/Training Program
DX: M85.89 Other specified disorders of bone density and structure, multiple sites (principal); Z78.0 Asymptomatic menopausal state

== ENCOUNTER 2024-04-14 13:56 | Emergency (ER) | payer MEDICARE, OTHER ==
[2024-04-14 14:10] VITALS: BP 134/85; O2SAT 70
--- NOTE | 2024-04-14 14:11 | ED Physician Documentation ---
History of Present Illness - Stated complaint Stated Complaint: RT HAND LAC - Chief complaint Chief Complaint: Laceration - Additonal information Additional information: 83-year-old female anticoagulated presents emergency department for right hand laceration. Patient reports she is right-hand dominant she was outside feeding the deer as she turned around to go open the door she lost her balance that she has a bad hip and hit the dorsal aspect of her right hand onto the doorknob. She reports there was a significant amount of bleeding at home prior to arrival and is worried she may need stitches. 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: None : Incontinence HEENT: Macular degeneration Psych: None Musculoskeletal: None Derm: Other - Past Surgical History Past Surgical History: Yes General: Appendectomy Ortho: Other Cardiovascular: Coronary stent - Present Medications Home Medications: Ambulatory Orders Medication Instructions Recorded Confirmed Atorvastatin Calcium [Lipitor] 80 mg PO HS 06/16/13 01/14/24 Gabapentin 400 mg PO QPM 11/20/18 01/14/24 traZODone [Desyrel] 200 mg PO QPM PRN 11/20/18 01/14/24 Meloxicam [Mobic] 7.5 mg PO DAILY 10 Days #10 tablet 07/20/22 01/14/24 Acetaminophen [Acetaminophen Extra 1,000 mg PO TID 10/29/23 01/14/24 Strength] Oxycodone HCl/Acetaminophen 1 each PO Q4H PRN #8 tablet 01/13/24 [Percocet 5-325 mg Tablet] Diphenoxylate HCl/Atropine 1 - 2 tab PO Q6H PRN 01/14/24 01/14/24 [Diphenoxylate-Atrop 2.5-0.025] HYDROcod/ACET 5/325 Prepack 4 1 tab PO Q6H PRN 01/14/24 01/14/24 [NORCO 5/325 Prepack 4] Ondansetron Odt [Zofran Odt] 4 mg TL Q12H PRN 01/14/24 01/14/24 amLODIPine [Norvasc] 5 mg PO DAILY 01/14/24 01/14/24 cilostazoL [Cilostazol] 50 mg PO BID 01/14/24 01/14/24 Multivitamin [Theragran] 1 tab PO DAILYWM tab 01/16/24 Pantoprazole [Protonix] 40 mg PO BID #60 tab 01/16/24 Pantoprazole [Protonix] 40 mg PO DAILY #30 tablet 01/16/24 Pantoprazole [Protonix] 40 mg PO DAILY #60 tablet 01/16/24 - Allergies Allergies/Adverse Reactions: Allergies Allergy/AdvReac Type Severity Reaction Status Date / Time clopidogrel bisulfate * Allergy Severe Rash Verified 04/14/24 14:02 [From Plavix] erythromycin base Allergy Mild Rash Verified 04/14/24 14:02 [Erythromycin Base] Penicillins Allergy Mild Rash Verified 04/14/24 14:02 spironolactone Allergy Mild Rash Verified 04/14/24 14:02 diazepam [From Valium] AdvReac Mild Anxiety Verified 04/14/24 14:02 - Social History Does the pt smoke?: No Smoking Status: Never smoker Does the pt drink ETOH?: Yes Does the pt have substance abuse?: No - Immunizations Immunizations are current?: No Immunizations: TDAP >10years/unknown - POLST Patient has POLST: No PD ED PE NORMAL - Vitals Vital signs reviewed: Yes - General General: Alert and oriented X 3, No acute distress, Well developed/nourished - Derm Derm: Other (4cm laceration across the dorsal aspect of the Right hand. bleeding controlled with surrounding hematoma) - Extremities Extremities: No deformity, Other (tenderness with palpation to the dorsal aspect of right hand) Results - Vitals Vitals: Vital Signs - 24 hr 04/14/24 14:02 Temperature 36.5 C Heart Rate 68 Respiratory 16 Rate Blood Pressure 134/85 H O2 Saturation 70 L Oxygen O2 Source Room air - Rads (name of study) right hand Xray Relevant Findings:: Final report received, EMP independent interpretation of test, Other (No acute bony abnormalities or findings) Procedures - Laceration (location) right hand Length in cm: 4 Wound type: Linear Neurovascular status: Sensory intact, Motor intact, Vascular intact Tendon involvement: Tendon intact Anesthesia: Lidocaine 1% with epi Wound preparation: Irrigated copiously NS, Wound explored, To the base Skin layer closure: Nylon, Interrupted, Size #-0 - enter number (4-0), Sutures - enter # (4) Other: Patient tolerated well, No complications, Neurovascular intact, Dressing applied, Tetanus booster given PD Medical Decision Making - ED course ED course: Wound inspected under direct bright light with good visualization. Area with linear laceration across soft tissue through adipose without exposure of muscle belly or tendon. X-rays are complete for further evaluation no acute bony abnormalities or findings. No overt foreign body. Area hemostatic After pressure dressing applied And injection of lidocaine with epi. Neurovascular exam congruent with above. Area extensively irrigated with sterile normal saline under pressure. Laceration repaired in simple fashion With a total of 4 interrupted sutures. (please see procedure note for further details). Patient tolerated procedure well and neurovascular exam intact and unchanged post repair with intact distal pulses and cap refill. Cautious return precautions discussed w/ full understanding. Wound care discussed. Prompt follow up with primary care Provider or urgent care discussed and return for suture removal in 10-12 days. Patient was informed that she may benefit from skipping her blood thinners for couple days that she is going to continue to ooze if she does not and understands the risks of doing so. Departure - Departure Disposition: 01 Home, Self Care Clinical Impression: Laceration of right hand Qualifiers: Encounter type: initial encounter Foreign body presence: without foreign body Qualified Code(s): S61.411A - Laceration without foreign body of right hand, initial encounter Instructions: ED Laceration All Comments: Come back for any signs of infection which would include: Redness, swelling, drainage, increased pain, or fevers. You can wash it soap and water. Keep it covered and moist with bacitracin ointment which is available over the counter; avoid neosporin. Follow-up with your physician in 10-12 days for suture removal. Forms: PCP List Discharge Date/Time: 04/14/24 15:10
[2024-04-14] MEDS: ACETAMINOPHEN 500 MG TABLET PO STA (14:27)
[2024-04-14] MEDS: LIDOCAINE 1%-EPI 1:100000 20 ML MDV TD STA (14:28)
[2024-04-14] MEDS: BACITRACIN ZINC OINT 1 PACKET TOP STA (14:49)
[2024-04-14] MEDS: TETANUS/DIPHTHERIA/PERTUSSIS 0.5 ML SYRINGE IM ONE (14:51)
--- NOTE | 2024-04-14 14:51 | XRAY Report ---
PROCEDURE: Hand 3+V RT INDICATIONS: right dorsal hand laceration TECHNIQUE: 3 views of the hand(s) acquired. COMPARISON: None. FINDINGS: Bones: No fractures or dislocations. 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 No suspicious bony lesions. Soft tissues: No suspicious soft tissue calcifications or masses. No radiopaque foreign body or soft tissue gas. IMPRESSION: No acute bony abnormality. Reviewed by: Jono Coats MD on 04/14/2024 2:49 PM PDT Approved by: Jono Coats MD on 04/14/2024 2:49 PM PDT Station ID: [id number]
== END 2024-04-14 15:10 | disposition home or self-care (01) ==
LOC: ED 13:56
DX: S61.411A Laceration without foreign body of right hand, initial encounter (principal); W22.09XA Striking against other stationary object, initial encounter; Y93.K9 Activity, other involving animal care
CPT/HCPCS: 12002; 73130; 90471; 90715; 99283; A9270

== ENCOUNTER 2025-03-18 11:51 | Inpatient (IN) ==
--- OUTSIDE RECORDS SUMMARY | 2025-03-18 11:57 | EXTERNAL MEDICAL SUMMARY RPT | Continuity of Care Document ---
Author Organization [facility] Address [address] [address] Phone Problems date description facility 2024-12-20 13:19 Other specified isael pausal and perimenopausal disorders [employer] 2024-12-25 10:01 Nondisplaced fractur e of greater trochanter of left femur, sequela [employer] [facility] 2024-12-26 00:02 Nondisplaced fractur e of greater trochanter of left femur, [facility] 2025-01-14 18:05 Heart failure, unspecified [email or web address] [facility] 2025-01-17 08:54 Heart failure, unspecified [email or web address] [facility] 2025-01-17 08:54 Shortness of breath [facility] 2025-01-17 08:54 Other specified symp toms and signs involving the circulatory and respiratory systems [facility] 2025-01-17 08:54 Other fatigue [facility] 2025-02-01 10:08 Pneumonia, unspecified organism [facility] 2025-02-01 10:22 Pneumonia, unspecified organism [facility] 2025-02-01 12:17 Pneumonia, unspecified organism [facility] 2025-02-05 14:03 Anemia, unspecified [facility] 2025-02-05 14:03 Pneumonia, unspecified organism [facility] 2025-02-05 14:03 Weakness [facility] 2025-02-15 11:54 Urinary tract infection, site n ot specified [employer] [facility] 2025-02-15 12:05 Urinary tract infection, site n ot specified [facility] 2025-02-15 15:09 Urinary tract infection, site n ot specified [facility] 2025-02-16 00:04 Urinary tract infection, site n ot specified [employer] [facility] 2025-03-10 20:09 Heart failure, unspecified [email or web address] [facility] 2025-03-12 11:27 Heart failure, unspecified [facility] 2025-03-13 09:36 Heart failure, unspecified [employer] [facility] 2025-03-13 09:36 Shortness of breath josefina Goldberg [facility] 2025-03-14 14:02 Abscess of tendon sheath, right lower leg [facility] Results/Labs test date facility value unit notes Result panel 1 ABNORMAL LYMPHS % (MANUAL) 2025-01-14 15:50 [facility] 0 % (missing) BASOPHILS # (MANUAL) 2025-01-14 15:50 [facility] 0.0 10 3/ul (missing) EOSINOPHILS # (MANUAL) 2025-01-14 15:50 [employer] [facility] 0.0 10 3/ul (missing) BILIRUBIN,TOTAL 2025-01-14 15:50 [facility] 0.4 mg/dl As of January 2023 testing method has changed, this may include reference ranges. MONOCYTES # (MANUAL) 2025-01-14 15:50 [employer] 0.6 10 3/ul (missing) CREATININE 2025-01-14 15:50 [employer] 0.8 mg/dl As of January 2023 testing method has changed, this may include reference ranges. PLATELET MORPHOLOGY 2025-01-14 15:50 [employer] 1+ GIANT PLATELETS (missing ) (missing) ALBUMIN/GLOBULIN RATIO 2025-01-14 15:50 [employer] 1.8 (missing ) (missing) TOTAL CELLS COUNTED 2025-01-14 15:50 [employer] 100 (missing ) (missing) MEAN CORPUSCULAR VOLUME 2025-01-14 15:50 [employer] [facility] 102.5 fl (missing) WHITE BLOOD COUNT 2025-01-14 15:50 [employer] [facility] 11.3 x10 3/ul (missing) CHLORIDE 2025-01-14 15:50 [employer] [facility] 110 mmol/l As of January 2023 testing method has changed, this may include reference ranges. ALKALINE PHOSPHATASE 2025-01-14 15:50 [employer] 113 iu/l As of January 2023 testing method has changed, this may include reference ranges. GLUCOSE 2025-01-14 15:50 [facility] 116 mg/dl As of January 2023 testing method has changed, this may include reference ranges. BUN - BLOOD UREA NITROGEN 2025-01-14 15:50 [facility] 14 mg/dl As of January 2023 testing method has changed, this may include reference ranges. SODIUM 2025-01-14 15:50 [facility] 143 mmol/l Unknown ALT ALANINE AMINOTRANSFERASE 2025-01-14 15:50 [facility] 15 iu/l As of January 2023 testing method has changed, this may include reference ranges. RED CELL DISTRIBUTION WIDTH 2025-01-14 15:50 [employer] 16.8 % (missing) AST ASPARTATE AMINOTRANSFERASE 2025-01-14 15:50 [facility] 19 iu/l As of January 2023 testing method has changed, this may include reference ranges. BAND NEUTROPHILS % (MANUAL) 2025-01-14 15:50 [employer] 2 % (missing) GLOBULIN 2025-01-14 15:50 [employer] 2.1 g/dl (missing) LYMPHOCYTES # (MANUAL) 2025-01-14 15:50 [employer] 2.6 10 3/ul (missing) CARBON DIOXIDE - CO2 2025-01-14 15:50 [employer] 26 mmol/l As of January 2023 testing method has changed, this may include reference ranges. MEAN CORPUSCULAR HGB CONC 2025-01-14 15:50 [employer] 28.7 g/dl (missing) MEAN CORPUSCULAR HEMOGLOBIN 2025-01-14 15:50 [employer] 29.4 pg (missing) INR 2025-01-14 15:50 [employer] 3.1 (missing ) Oral Anticoagulant Indication INR range Venous Thrombosis, P.E. 2.0 - 3.0 Mechanical Valve 2.5 - 3.5 RED BLOOD COUNT 2025-01-14 15:50 [employer] 3.20 10 6/ul (missing) ALBUMIN 2025-01-14 15:50 [employer] 3.7 g/dl As of January 2023 testing method has changed, this may include reference ranges. POTASSIUM 2025-01-14 15:50 [employer] 3.8 mmol/l As of January 2023 testing method has changed, this may include reference ranges. HCT - HEMATOCRIT 2025-01-14 15:50 [facility] 32.8 % (missing) PT - PROTHROMBIN TIME 2025-01-14 15:50 [facility] 33.6 secs (missing) REACTIVE LYMPHS % (MANUAL) 2025-01-14 15:50 [facility] 4 % (missing) PLT - PLATELET COUNT 2025-01-14 15:50 [facility] 416 10 3/ul (missing) TOTAL PROTEIN 2025-01-14 15:50 [facility] 5.8 g/dl As of January 2023 testing method has changed, this may include reference ranges. BNP - B-NATRIURETIC PEPTIDE 2025-01-14 15:50 [facility] 537 pg/ml (missing) GFR - MDRD 2025-01-14 15:50 [facility] 68 (missing ) Social History date description facility
--- NOTE | 2025-03-18 12:38 | ED Physician Documentation ---
History of Present Illness Stated complaint Stated Complaint: SOA, GI Chief complaint Chief Complaint: General History obtained from History obtained from: Patient and Family Additonal information Additional information: This is a shira 84-year-old woman with history of congestive heart failure, coronary disease with stents in place, atrial fibrillation. She also has a history of remote ulcer bleed. Over the last week or 2 she is having worsening shortness of breath. That is despite doubling her Lasix from 20 mg a day up to 40 mg a day. She is also had some dark and tarry stools over the last few days. They tell me she also has some sort of hematologic problem pending workup with anemia, elevated white count. She is to see hematology in the next few weeks. She is in no physical pain except for chronic pain of the hip which she has a known hip fracture with failing hardware in place, but her medical condition as of late has precluded fixation. That said she would like a painkiller for that. Meds/Allgy Home Medications Ambulatory Orders Medication Instructions Recorded Confirmed atorvastatin 40 mg tablet (Lipitor) 80 mg PO HS 03/18/25 acetaminophen 500 mg tablet 1,000 mg PO TID 10/29/23 0 03/18/25 (Acetaminophen Extra Strength) Diphenoxylate Hcl/Atropine 1 - 2 tab PO Q6H PRN Diarrh ea 01/14/24 03/18/25 [Diphenoxylate-Atrop 2.5-0.025] amlodipine 5 mg tablet 5 mg PO DAILY 01/14/2403/18 cilostazol 50 mg tablet 50 mg PO BID 01/14/24 ondansetron 4 mg disintegrating 4 mg translingual Q12H PRN Nausea 01/14/24 03/18/25 tablet / Vomiting multivitamin with folic acid 400 1 tab PO DAILYWM 12/2503/18/25 mcg tablet (Thera) furosemide 20 mg tablet (Lasix) 20 mg PO DAILY #14 tab s 01/14/25 03/18/25 gabapentin 100 mg capsule 200 mg PO QPM 02/15/2503/18 trazodone 50 mg tablet 50 mg PO QPM PRN Insomnia 03/18/25 metoprolol succinate 25 mg mg PO 03/18/25 tablet,extended release 24 hr Allergies Allergies Allergy/AdvReac Type Severity Reaction Status Date / Time clopidogrel bisulfate * Allergy Severe Rash Verified 03/18/25 12:07 (From Plavix) erythromycin base Allergy Mild Rash Verified 03/18/25 12:07 (Erythromycin Base) Penicillins Allergy Mild Rash Verified 03/18/25 12:07 spironolactone Allergy Mild Rash Verified 03/18/25 12:07 diazepam (From Valium) AdvReac Mild Anxiety Verified 03/18/25 12:07 PFS Active Problems All Active Problems (Updated 03/18/25 @ 13:22 by Ramon Archibald MD) CHF (congestive heart failure) (Acute) Acute upper gastrointestinal bleeding (Acute) Complicated UTI (urinary tract infection) (Acute) Anemia (Acute) Pneumonia (Acute) Hematoma (Acute) Cellulitis of hand (Acute) Chronic sinusitis (Acute) Cat scratch of hand (Acute) Medical History Medical History GI bleed Nausea vomiting and diarrhea Food poisoning Bronchitis, asthmatic Accidental fall Fracture of greater tuberosity of humerus Vomiting Hot flashes Anemia Generalized weakness Near syncope Dyspnea Urinary tract infection Dehydration Open wound of abdomen ISTAP type 1 skin tear of right forearm Open wound of right wrist Left leg cellulitis Shortness of breath Dizziness Gastrointestinal hemorrhage Anemia due to acute blood loss Venous stasis ulcer of left lower leg with edema of left lower leg Atrial fibrillation Non-pressure chronic ulcer of skin of other sites with fat layer exposed Esophageal varices determined by endoscopy Hyperlipidemia HTN (hypertension) ETOH abuse Hx of cholecystitis GI bleed due to NSAIDs Social History Social History (Updated 03/18/25 @ 12:23 by Brandon Rivera, RN, BSN) Smoking Status: Current every day smoker If you are a former smoker, when did you quit? (Date/Year): 07/26/2008 Number of Years Smoked: 65 How many cigarettes a day do you smoke? (20 cigarettes=1 Pk): 1 Do you dip or chew tobacco?: No Patient requests smoking cessation consult: No Initiate information on smoking cessation: No Living arrangement: At home (family in area ) Living Condition: Alone Level: Assisted Do you feel safe in your home environment?: Yes History of physical, verbal, emotional, or financial abuse?: No Frequency: Occasional POLST Patient has POLST: No Exam Exam Vital Signs: Vital Signs x48h Temp Pulse Resp BP Pulse Ox 03/18/25 12:06 36.5 C 89 24 118/53 L 95 Constitutional She does appear mildly breathless, she is in A-fib on the monitor with rates in the 80s. Respiratory Mildly tachypneic, wheezes at the bases and diminished at the bases. Cardiovascular Irregularly irregular, no murmur Gastrointestinal nontender to palpation Extremities 3+ pitting pedal edema Neurology GCS 15 Results Vitals Vitals: Vital Signs - 24 hr 03/18/25 12:06 03/18/25 12:55 Temperature 36.5 C Temperature Source Temporal Artery Scan Pulse Rate 89 Respiratory Rate 24 Blood Pressure 118/53 L O2 Saturation 95 O2 Source Room air Pain Intensity 6 8 Oxygen O2 Source Room air EKG (time done) 1213: EKG releavant findings:: EKG personally interpreted by author of this note. Relevant findings are: Atrial fibrillation with rate of 72. Single PVC on the rhythm strip. Anterior Q waves. No ST elevation or depression. Labs Labs: Laboratory Tests 03/18/25 12:49 WBC 21.0 H RBC 2.55 L Hgb 6.8 L* Hct 24.7 L MCV 96.9 MCH 26.7 L MCHC 27.5 L RDW 18.1 H Plt Count 328 MPV 10.3 Sodium 140 Potassium 3.5 Chloride 102 Carbon Dioxide 33 H Anion Gap 5.0 L BUN 19 Creatinine 0.8 Estimated GFR (MDRD) 68 L Glucose 106 H Calcium 9.2 Magnesium 2.0 Total Bilirubin 1.3 H AST 39 ALT 26 Alkaline Phosphatase 105 B-Natriuretic Peptide 482 H Total Protein 6.1 L Albumin 3.3 Globulin 2.8 Albumin/Globulin Ratio 1.2 Rads (name of study) 1v CXR Cardiomegaly and mild vascular congestion slightly improved : Relevant Findings:: Final report received and EMP independent interpretation of test (Mild chf) PD Medical Decision Making ED course ED course: This is a shira 84-year-old woman who is anticoagulated for A-fib and has a history of recently worsening CHF. She also has a history of ulcer bleeding and has some dark and tarry stools. She is found to be more anemic than her usual, and is guaiac positive. She was administered IV Protonix, Lasix, pcc and we will ready blood. Given her comorbidities I spoke with the OVER SHORT AND DAMAGE CLERK, Julito Fabian who said she was appropriate to sedate at this facility. Subsequently spoke with Dr. Montano who will consult and potentially do EGD tomorrow. Subsequently spoke with Dr. Meyers for admission at 1:23 PM. The patient and family are counseled as to the diagnosis and need for admission. This document was made in part using voice recognition software, while efforts are made to proofread this document, sound alike an grammatical errors may o ccur. Discharge Plan Discharge Patient Disposition: 66 [facility] DC/Xfer Condition: Serious Clinical Impression: Acute upper gastrointestinal bleeding, CHF (congestive heart failure) Prescriptions: No Action atorvastatin [Lipitor] 40 MG tablet 80 mg PO HS trazodone 50 mg tablet 50 mg PO QPM PRN (Reason: Insomnia) gabapentin 100 mg capsule 200 mg PO QPM acetaminophen [Acetaminophen Extra Strength] 500 MG tablet 1,000 mg PO TID Diphenoxylate Hcl/Atropine [Diphenoxylate-Atrop 2.5-0.025] 1 EACH tablet 1 - 2 tab PO Q6H PRN (Reason: Diarrhea) Patient Comments: TAKE ONE OR TWO TABLETS BY MOUTH EVERY 6 HOURS NEEDED. UP TO 8 TABLETS DAILY cilostazol 50 MG tablet 50 mg PO BID amlodipine 5 MG tablet 5 mg PO DAILY ondansetron 4 MG tablet,disintegrating 4 mg translingual Q12H PRN (Reason: Nausea / Vomiting) multivitamin with folic acid [Thera] 1 TAB tablet 1 tab PO DAILYWM 0RF furosemide [Lasix] 20 mg tablet 20 mg PO DAILY Qty: 14 0RF metoprolol succinate 25 mg tablet extended release 24 hr PO Patient Comments: TAKE 1/2 TABLET BY MOUTH ONCE DAILY Print Language: Occitan
[2025-03-18] MEDS: HYDROcod/ACETAM 5/325 MG TABLET PO STA (12:55)
[2025-03-18 12:56] LABS: HCT - HEMATOCRIT 24.7 % (37.0-47.0); MEAN PLATELET VOLUME 10.3 fL (7.9-10.8); PLT - PLATELET COUNT 328 10^3/uL (130-450); RED CELL DISTRIBUTION WIDTH 18.1 % (12.0-15.0)
[2025-03-18 13:02] LABS: HGB - HEMOGLOBIN 6.8 g/dL (12.0-16.0)
[2025-03-18 13:03] LABS: ABNORMAL LYMPHS % (MANUAL) 0 %; BASOPHILS # (MANUAL) 0.0 10^3/uL (0-0.1); EOSINOPHILS # (MANUAL) 0.0 10^3/uL (0-0.7); MONOCYTES # (MANUAL) 0.0 10^3/uL (0.0-1.0)
[2025-03-18 13:08] LABS: ALT ALANINE AMINOTRANSFERASE 26.0 IU/L (10-60); AST ASPARTATE AMINOTRANSFERASE 39.0 IU/L (10-42); BUN - BLOOD UREA NITROGEN 19.0 mg/dL (6-20); CARBON DIOXIDE - CO2 33.0 mmol/L (21-32); CREATININE 0.8 mg/dL (0.6-1.3); GFR - MDRD 68.0 (>89)
--- NOTE | 2025-03-18 13:15 | XRAY Report ---
PROCEDURE: XR Chest 1V INDICATIONS: dyspnea TECHNIQUE: Single frontal view of the chest was obtained COMPARISON: 03/10/2025 FINDINGS: Instrumentation: Left-sided dual-chamber pacemaker Heart size, mediastinum and pulmonary vasculature: Heart size is enlarged. Mild vascular congestion. Atherosclerotic vascular calcification noted in the aortic arch. Lungs and pleural spaces: Clear. No pneumothorax or pleural effusion. Osseous structures: Unremarkable IMPRESSION: Cardiomegaly and mild vascular congestion slightly improved Reviewed by: Randall Redmond MD on 03/18/2025 12:14 PM AKDT Approved by: Randall Redmond MD on 03/18/2025 12:14 PM AKDT Station ID: [id number]
[2025-03-18 13:23] LABS: BAND NEUTROPHILS % (MANUAL) 1 %; LYMPHOCYTES # (MANUAL) 3.2 10^3/uL (1.5-3.5); LYMPHOCYTES % (MANUAL) 13 %; MYELOCYTES % (MANUAL) 13 %; NEUTROPHILS # (MANUAL) 15.1 10^3/uL (1.5-6.6); NUCLEATED RBC (MANUAL) 12 %; REACTIVE LYMPHS % (MANUAL) 2 %
--- NOTE | 2025-03-18 13:29 | HISTORY & PHYSICAL EXAMINATION ---
Chief Complaint Chief Complaint Chief Complaint: Shortness of breath History of Present Illness Admitted From Admitted From:: Home History Obtained From Records Reviewed: EMR History obtained from: Patient, patient's daughter Exam Limitations: None History of Present Illness HPI Comment/Other: Patient is a 84-year-old female with a history of atrial fibrillation on Eliquis, heart failure with reduced ejection fraction who presents with worsening shortness of breath. Patient states that for the past 2 to 3 weeks, she has had progressive shortness of breath. This is worsened with activity and lying flat. She recently saw her custodial foreman, last Wednesday, and was switched from diuretic that she cannot recall to Lasix. She has been taking this daily without any relief of her shortness of breath. She endorses a low-salt diet. She tries to take keep under 50 ounces, but she drinks a lot of Pepsi and tea at home. Additionally, she has been having dark stools at home. She states this has been ongoing for about 2 weeks. She has never noticed any bright red blood there. She has never had an EGD or colonoscopy. Of note, she was admitted in 12/2023 for similar bleeding. At that time, her Eliquis was held, and her hemoglobin stabilized without any intervention. Finally, in the outpatient setting, she has been having marked leukocytosis, as high as the 20s, as well as anemia. She was recently referred to a cake press operator, and has an appointment with them on April 11. She has not had a bone marrow biopsy done. She does endorse night sweats. She has not had any weight loss. In the ER, she was slightly tachycardic with heart rate of 89, afebrile, satting 95% on room air, and respiratory rate was 24. Her blood pressure was 118/53. Lab work revealed white count of 21. Her hemoglobin was 6.8, and her baseline appears to be around 7.5. Urinalysis, BMP are ordered, and are pending. She received 1 unit packed red blood cells, as well as PCC. She also got a dose of IV Lasix. Chest x-ray showed cardiomegaly, as well as mild vascular congestion. She is admitted for acute GI bleed, and shortness of breath. Meds/Allgy Home Medications Ambulatory Orders Medication Instructions Recorded Confirmed atorvastatin 40 mg tablet (Lipitor) 80 mg PO HS 03/18/25 acetaminophen 500 mg tablet 1,000 mg PO TID 10/29/23 0 03/18/25 (Acetaminophen Extra Strength) Diphenoxylate Hcl/Atropine 1 - 2 tab PO Q6H PRN Diarrh ea 01/14/24 03/18/25 [Diphenoxylate-Atrop 2.5-0.025] amlodipine 5 mg tablet 5 mg PO DAILY 01/14/2403/18 cilostazol 50 mg tablet 50 mg PO BID 01/14/24 ondansetron 4 mg disintegrating 4 mg translingual Q12H PRN Nausea 01/14/24 03/18/25 tablet / Vomiting multivitamin with folic acid 400 1 tab PO DAILYWM 12/2503/18/25 mcg tablet (Thera) furosemide 20 mg tablet (Lasix) 20 mg PO DAILY #14 tab s 01/14/25 03/18/25 gabapentin 100 mg capsule 200 mg PO QPM 02/15/2503/18 trazodone 50 mg tablet 50 mg PO QPM PRN Insomnia 03/18/25 metoprolol succinate 25 mg mg PO 03/18/25 tablet,extended release 24 hr Allergies Allergies Allergy/AdvReac Type Severity Reaction Status Date / Time clopidogrel bisulfate * Allergy Severe Rash Verified 03/18/25 12:07 (From Plavix) erythromycin base Allergy Mild Rash Verified 03/18/25 12:07 (Erythromycin Base) Penicillins Allergy Mild Rash Verified 03/18/25 12:07 spironolactone Allergy Mild Rash Verified 03/18/25 12:07 diazepam (From Valium) AdvReac Mild Anxiety Verified 03/18/25 12:07 PFS Active Problems All Active Problems (Updated 03/18/25 @ 15:23 by Erwin Chandra MD) CHF (congestive heart failure) (Acute) Acute upper gastrointestinal bleeding (Acute) Complicated UTI (urinary tract infection) (Acute) Anemia (Acute) Pneumonia (Acute) Hematoma (Acute) Cellulitis of hand (Acute) Chronic sinusitis (Acute) Cat scratch of hand (Acute) Medical History Medical History GI bleed Nausea vomiting and diarrhea Food poisoning Bronchitis, asthmatic Accidental fall Fracture of greater tuberosity of humerus Vomiting Hot flashes Anemia Generalized weakness Near syncope Dyspnea Urinary tract infection Dehydration Open wound of abdomen ISTAP type 1 skin tear of right forearm Open wound of right wrist Left leg cellulitis Shortness of breath Dizziness Gastrointestinal hemorrhage Anemia due to acute blood loss Venous stasis ulcer of left lower leg with edema of left lower leg Atrial fibrillation Non-pressure chronic ulcer of skin of other sites with fat layer exposed Esophageal varices determined by endoscopy Hyperlipidemia HTN (hypertension) ETOH abuse Hx of cholecystitis GI bleed due to NSAIDs Social History Social History (Updated 03/18/25 @ 12:23 by Brandon Rivera, RN, BSN) Smoking Status: Current every day smoker If you are a former smoker, when did you quit? (Date/Year): 07/26/2008 Number of Years Smoked: 65 How many cigarettes a day do you smoke? (20 cigarettes=1 Pk): 1 Do you dip or chew tobacco?: No Do you vape?: No Patient requests smoking cessation consult: No Initiate information on smoking cessation: No Living arrangement: At home (family in area ) Living Condition: Alone Level: Assisted Do you feel safe in your home environment?: Yes History of physical, verbal, emotional, or financial abuse?: No Frequency: Occasional POLST Patient has POLST: No Review of Systems Constitutional Reports: Chills, Weakness and Poor appetite; Denies: Fatigue, Fever or Malaise Eyes Denies: Pain, Irritation, Blurry vision, Vision loss or Diplopia Ears, nose, mouth, and throat Denies: Ear pain, Hearing loss, Tinnitus, Nose bleeds, Nasal discharge, Mouth lesions, Bleeding gums or Neck pain Cardiovascular Reports: Irregular heart rate, edema, shortness of breath with exertion, shortness of breath when lying down and Decreased exercise tolerance; Denies: chest pain, palpitations or Syncope Respiratory Reports: Shortness of breath; Denies: Cough, Sputum production or Wheezing Gastrointestinal Reports: Rectal bleeding; Denies: Abdominal pain, Abdominal distention, Nausea, Vomiting, Heartburn, Diarrhea or Constipation Genitourinary Denies: Painful urination, Urinary frequency or Urinary urgency Musculoskeletal Denies: Back pain, Neck pain, Extremity pain, Extremity swelling or Joint pain Integumentary/Breast Denies: Rash, Itching, Dryness, Redness or Skin pain Neurological Denies: Headache, General weakness, Weakness in extremities, Numbness in extremities, Abnormal gait or Dizziness Psychiatric Denies: Depression, Anxiety, Mood swings or Panic attacks Endocrine Denies: Excessive urination, Excessive thirst or Fatigue Hematologic/Lymphatic Reports: Anemia; Denies: Easy bruising or Easy bleeding Allergic/Immunologic Denies: Hives, Tongue swelling, Facial swelling or Wheezing Prior Level of Functionality: Lives with her daughter. Ambulates with cane and walker. Dependent on daughter for activities of daily living. Exam Exam Vital Signs: Vital Signs x48h Temp Pulse Pulse Resp BP BP Pulse Ox 03/18/25 15:33 98.6 F 77 20 123/65 95 03/18/25 14:40 97.9 F 77 20 128/57 L 93 03/18/25 12:06 97.7 F 89 24 118/53 L 95 Constitutional normal general appearance, no apparent distress, average body habitus and no limitations HENMT normocephalic, head/scalp atraumatic and hearing grossly normal bilaterally Eyes PERRL, EOMs intact bilaterally and conjunctivae normal Neck/C-Spine visual inspection normal, trachea midline and cervical spine nontender Chest inspection of chest normal Respiratory breath sounds equal bilaterally, normal respiratory effort, clear to auscultation bilaterally, no wheezes, no rales and no retractions Cardiovascular normal heart rate noted, rhythm abnormal (irregular), no gallop, no rub and no murmur Gastrointestinal abdomen normal to inspection, abdomen soft to palpation, nontender to palpation and normoactive bowel sounds Genitourinary no CVA tenderness and bladder normal to palpation Back/Pelvis spine normal to inspection, no thoracic spine tenderness and no lumbar spine tenderness Extremities normal to inspection, normal to palpation and no tenderness 3+ pitting edema to knees Neurology no movement abnormality noted and no focal motor deficit noted Psychiatry mental status grossly normal, oriented x3, thought process normal, cooperative and affect normal Skin skin color normal, no rash, no lesions and no wounds Conclusion/Plan Problem List (1) Acute upper gastrointestinal bleeding: Plan: Patient presents with a hemoglobin of 6.8. Baseline is about 7.5. Also endorses dark stools at home for about 2 weeks. Stool guaiac is positive. Continue to trend H&H every 8 hours. IV Protonix 40 mg twice daily. Hold home Eliquis. General Surgery consulted in case of need for EGD. (2) CHF (congestive heart failure): Plan: Patient with a history of congestive heart failure, with reduced EF, unknown ejection fraction. proBNP ordered, pending. Received a dose of IV Lasix. Continue diuresis slowly. She is currently n.p.o., and may be having an active GI bleed. Qualifiers: Heart failure chronicity: chronic Heart failure type: unspecified Q ualified Code(s): I50.9 - Heart failure, unspecified (3) Shortness of breath: Plan: Likely multifactorial secondary to congestive heart failure exacerbation as well as anemia. Treatment as above. (4) Anemia due to acute blood loss: Plan: Acute on chronic anemia with positive guaiac. Treat for GI bleed as above. Patient should also see hematology in the outpatient setting for further workup including bone marrow biopsy. Outpatient doctor has completed iron studiesvitamin B12 is within normal limits, folate is within normal limits. Iron levels were high in 2023 at 239, and when repeated in January 2025 or 44. TIBC is low, percent saturation is normal, and ferritin is normal as well. (5) Atrial fibrillation: Plan: Hold Eliquis at this time. Continue metoprolol. Qualifiers: Atrial fibrillation type: unspecified Qualified Code(s): I48.91 - Unspecified atrial fibrillation (6) Hyperlipidemia: Plan: Continue statin. Qualifiers: Hyperlipidemia type: unspecified Qualified Code(s): E78.5 - Hyperlipidemia, unspecified (7) HTN (hypertension): Plan: Hold antihypertensives in setting of active GI bleed. Qualifiers: Hypertension type: unspecified Qualified Code(s): I10 - Essential (primary) hypertension Lab Results Lab results reviewed: Yes 03/18/25 12:49 03/18/25 12:49 Diagnostic Imaging Results Diagnostic Imaging Results: positive Final report reviewed Core Measures Anticipated LOS I expect patient to be DC'd or transferred within 96 hours.: Yes Issues Hospital Issues and Management Plan: None anticipated. DVT/VTE - Prophylaxis VTE/DVT Device ordered at admit?: Yes VTE/DVT Prophylaxis med ordered at admit?: No Not Ordered - Medical Reason: Contraindicated
[2025-03-18] MEDS: FUROSEMIDE 40 MG/4 ML VIAL IVP STA (13:37)
[2025-03-18] MEDS: PANTOPRAZOLE 40 MG VIAL IVP STA (13:37)
[2025-03-18] MEDS: HUM PROTHROMBIN CPLX(PCC)-LANS 2,000 UNIT IV STA (13:56)
--- OUTSIDE RECORDS SUMMARY | 2025-03-18 13:58 | EXTERNAL MEDICAL SUMMARY RPT | Continuity of Care Document ---
Author Organization [place] Address [address] [address] Phone Problems date description facility 2024-12-20 13:19 Other specified isael pausal and perimenopausal disorders [facility] 2024-12-25 10:01 Nondisplaced fractur e of greater trochanter of left femur, sequela [facility] 2024-12-26 00:02 Nondisplaced fractur e of greater trochanter [facility] left femur[facility] 2025-01-14 18:05 Heart failure, unspecified [facility] 2025-01-17 08:54 Heart failure, unspecified [facility] 2025-01-17 08:54 [facility] 2025-01-17 08:54 Other specified symp toms and signs involving the circulatory and respiratory systems [email or web address] 2025-[facility]-17 08:54 Other fatigue [facility] 2025-02-01 10:08 Pneumonia, unspecified organism [facility] 2025-02-01 10:22 Pneumonia, unspecified organism [facility] 2025-02-01 12:17 Pneumonia, unspecified [email or web address] 2025-02-05 14:03 Anemia, unspecified [facility] 2025-02-05 14:03 Pneumonia, unspecified organism [facility] 2025-02-05 14:03 Weakness [email or web address] 2025-02-15 11:54 Urinary tract infection, site n ot specified [facility] 2025-02-15 12:05 Urinary tract infection, site n ot specified [facility] 2025-02-15 15:09 Urinary tract infection, site n ot specified [facility] 2025-02-16 00:04 Urinary tract infection, site n ot specified [facility] 2025-03-10 20:09 Heart failure, unspecified id [facility] 2025-03-12 11:27 Heart failure, unspecified anthony [facility] 2025-03-13 09:36 Heart failure, unspecified [facility] 2025-03-13 09:36 Shortness of breath Yris Goldberg [facility] 2025-03-14 14:02 Abscess of tendon sheath, right lower leg [facility] 2025-03-18 12:07 Abscess of tendon sheath, right lower leg [facility] Results/Labs test date facility value unit notes Result panel 1 ABNORMAL LYMPHS % (MANUAL) 2025-01-14 15:50 [facility] 0 % (missing) BASOPHILS # (MANUAL) 2025-01-14 15:50 [facility] 0.0 10 3/ul (missing) EOSINOPHILS # (MANUAL) 2025-01-14 15:50 [facility] 0.0 10 3/ul (missing) BILIRUBIN,TOTAL 2025-01-14 15:50 [facility] 0.4 mg/dl As of January 2023 testing method has changed, this may include reference ranges. MONOCYTES # (MANUAL) 2025-01-14 15:50 [facility] 0.6 10 3/ul (missing) CREATININE 2025-01-14 15:50 [facility] 0.8 mg/dl As of January 2023 testing method has changed, this may include reference ranges. PLATELET MORPHOLOGY 2025-01-14 15:50 [facility] 1+ GIANT PLATELETS (missing ) (missing) ALBUMIN/GLOBULIN RATIO 2025-01-14 15:50 [facility] 1.8 (missing ) (missing) TOTAL CELLS COUNTED 2025-01-14 15:50 [facility] 100 (missing ) (missing) MEAN CORPUSCULAR VOLUME 2025-01-14 15:50 [facility] 102.5 fl (missing) WHITE BLOOD COUNT 2025-01-14 15:50 [facility] 11.3 x10 3/ul (missing) CHLORIDE 2025-01-14 15:50 [facility] 110 mmol/l As of January 2023 testing method has changed, this may include reference ranges. ALKALINE PHOSPHATASE 2025-01-14 15:50 [facility] 113 iu/l As of January 2023 testing method has changed, this may include reference ranges. GLUCOSE 2025-01-14 15:50 [facility] 116 mg/dl As of January 2023 testing method has changed, this may include reference ranges. BUN - BLOOD UREA NITROGEN 2025-01-14 15:50 [facility] 14 mg/dl As of January 2023 testing method has changed, this may include reference ranges. SODIUM 2025-01-14 15:50 [facility] 143 mmol/l Unknown ALT ALANINE AMINOTRANSFERASE 2025-01-14 15:50 [facility] 15 iu/l As of January 2023 testing method has changed, this may include reference ranges. RED CELL DISTRIBUTION WIDTH 2025-01-14 15:50 [facility] 16.8 % (missing) AST ASPARTATE AMINOTRANSFERASE 2025-01-14 15:50 [facility] 19 iu/l As of January 2023 testing method has changed, this may include reference ranges. BAND NEUTROPHILS % (MANUAL) 2025-01-14 15:50 [facility] 2 % (missing) GLOBULIN 2025-01-14 15:50 [facility] 2.1 g/dl (missing) LYMPHOCYTES # (MANUAL) 2025-01-14 15:50 [facility] 2.6 10 3/ul (missing) CARBON DIOXIDE - CO2 2025-01-14 15:50 [facility] 26 mmol/l As of January 2023 testing method has changed, this may include reference ranges. MEAN CORPUSCULAR HGB CONC 2025-01-14 15:50 [facility] 28.7 g/dl (missing) MEAN CORPUSCULAR HEMOGLOBIN 2025-01-14 15:50 [facility] 29.4 pg (missing) INR 2025-01-14 15:50 [facility] 3.1 (missing ) Oral Anticoagulant Indication INR range Venous Thrombosis, P.E. 2.0 - 3.0 Mechanical Valve 2.5 - 3.5 RED BLOOD COUNT 2025-01-14 15:50 [facility] 3.20 10 6/ul (missing) ALBUMIN 2025-01-14 15:50 [facility] 3.7 g/dl As of January 2023 testing method has changed, this may include reference ranges. POTASSIUM 2025-01-14 15:50 [facility] 3.8 mmol/l As of January 2023 testing method has changed, this may include reference ranges. HCT - HEMATOCRIT 2025-01-14 15:50 [facility] 32.8 % (missing) PT - PROTHROMBIN TIME 2025-01-14 15:50 [facility] 33.6 secs (missing) REACTIVE LYMPHS % (MANUAL) 2025-01-14 15:50 [facility] 4 % (missing) PLT - PLATELET COUNT 2025-01-14 15:50 [facility] [facility] 416 10 3/ul (missing) TOTAL PROTEIN 2025-01-14 15:50 [facility] 5.8 g/dl As of January 2023 testing method has changed, this may include reference ranges. BNP - B-NATRIURETIC PEPTIDE 2025-01-14 15:50 [facility] 537 pg/ml (missing) GFR - MDRD 2025-01-14 15:50 [email or web address] 68 (missing ) Social History date description facility
[2025-03-18] MEDS: LACTATED RINGERS 1,000 ML IV SCH (14:47)
[2025-03-18] MEDS: ACETAMINOPHEN 325 MG TABLET PO PRN (16:12)
[2025-03-18] MEDS: SODIUM CHLORIDE FLUSH 0.9% 10 ML SYRINGE IVP SCH (17:26)
[2025-03-18] MEDS ORDERED: ACETAMINOPHEN 1,000 MG/100 ML 1,000 MG/100 ML BAG IV PRN (17:51)
[2025-03-18] MEDS: oxyCODONE 5 MG TABLET PO PRN (18:04)
[2025-03-18 19:53] LABS: KETONES,URINE (UA) NEGATIVE (NEGATIVE); OCCULT BLOOD,URINE NEGATIVE (NEGATIVE)
[2025-03-18 19:54] LABS: GLUCOSE, URINE (UA) NEGATIVE (NEGATIVE); SQUAMOUS EPITHELIAL CELL,UR MOD Squamous (<= Few)
[2025-03-18] MEDS: PANTOPRAZOLE 40 MG VIAL IVP SCH (20:26)
[2025-03-18 22:07] LABS: HCT - HEMATOCRIT 29.3 % (37.0-47.0); HGB - HEMOGLOBIN 8.5 g/dL (12.0-16.0)
[2025-03-18 22:15] LABS: KETONES,URINE (UA) NEGATIVE (NEGATIVE); OCCULT BLOOD,URINE NEGATIVE (NEGATIVE)
[2025-03-18 22:16] LABS: GLUCOSE, URINE (UA) NEGATIVE (NEGATIVE); SQUAMOUS EPITHELIAL CELL,UR FEW Squamous (<= Few)
[2025-03-18] MEDS: CIPROFLOXACIN 400 MG/200 ML 400 MG/200 ML BAG IV SCH (23:10)
[2025-03-19] MEDS: MORPHINE 10 MG/ML VIAL IVP ONE (00:50)
[2025-03-19] MEDS: MORPHINE 2 MG/ML CARPUJECT IVP ONE (01:11)
[2025-03-19 04:25] LABS: HCT - HEMATOCRIT 28.0 % (37.0-47.0); HGB - HEMOGLOBIN 8.1 g/dL (12.0-16.0)
[2025-03-19 08:26] LABS: HCT - HEMATOCRIT 29.6 % (37.0-47.0); HGB - HEMOGLOBIN 8.5 g/dL (12.0-16.0); MEAN PLATELET VOLUME 10.1 fL (7.9-10.8); PLT - PLATELET COUNT 293.0 10^3/uL (130-450); RED CELL DISTRIBUTION WIDTH 19.0 % (12.0-15.0)
[2025-03-19 08:41] LABS: BUN - BLOOD UREA NITROGEN 17.0 mg/dL (6-20); CARBON DIOXIDE - CO2 31.0 mmol/L (21-32); CREATININE 0.9 mg/dL (0.6-1.3); GFR - MDRD 60.0 (>89)
[2025-03-19] MEDS: PANTOPRAZOLE 40 MG TABLET PO SCH (09:06)
[2025-03-19] MEDS: cefTRIAXone 1 GM VIAL IVP SCH (09:08)
--- NOTE | 2025-03-19 10:00 | PROVIDER PROGRESS NOTE ---
Subjective Subjective Subjective: Patient is feeling a little better today. Her chronic back pain is acting up. She still has some mild shortness of breath, worsened with activity. She has not had a bowel movement so no blood in her stool. Denies any fevers or chills. Current Medications Current Medications Current Medications: Current Medications Generic Name Dose Route Start Last Admin Trade Name Freq PRN Reason Stop Dose Admin Atorvastatin Calcium 80 mg 03/19/25 21:00 Atorvastatin 40 Mg Tablet PO HS NELLY Ceftriaxone Sodium 1 gm 03/19/25 09:00 03/19/25 09:08 Ceftriaxone 1 Gm Vial IVP 1 gm DAILY NELLY Administration Furosemide 20 mg 03/19/25 14:00 Furosemide 20 Mg/2 Ml Vial IVP BIDDIURETIC NELLY Gabapentin 200 mg 03/19/25 21:00 Gabapentin 100 Mg Capsule PO QPM NELLY Lidocaine 1 patch 03/18/25 17:51 03/19/25 09:08 Lidocaine Patch 4% TOP 1 patch DAILY PRN Administration PAIN 5-7 Multivitamins 1 tab 03/20/25 08:00 Multivitamin Tablet PO DAILYWM NELLY Oxycodone HCl 5 mg 03/18/25 17:53 03/19/25 09:07 Oxycodone 5 Mg Tablet PO 5 mg Q4HR PRN Administration Moderate Pain (Level 4-6) Pantoprazole Sodium 40 mg 03/19/25 09:00 03/19/25 09:06 Pantoprazole 40 Mg Tablet PO 40 mg BID NELLY Administration Sodium Chloride 10 ml 03/18/25 14:11 Sodium Chloride Flush 0.9% 10 Ml Syringe IVP PRN PRN NEEDED PER PROVIDER ORDERS Sodium Chloride 10 ml 03/18/25 17:00 03/19/25 09:11 Sodium Chloride Flush 0.9% 10 Ml Syringe IVP 10 ml 0100,0900,1700 NELLY Administration Sterile Water 10 ml 03/19/25 09:00 03/19/25 09:13 Water For Injection,Sterile 10 Ml Vial MC 10 ml DAILY NELLY Administration Trazodone HCl 50 mg 03/18/25 23:30 03/18/25 23:10 Trazodone 50 Mg Tablet PO 50 mg QPM NELLY Administration Objective Vital Signs/Intake & Output Reviewed Vital Signs: Yes Vital Signs: Vital Signs x48h Temp Pulse Resp BP Pulse Ox 03/19/25 08:18 98.1 F 80 18 146/68 H 95 Intake & Output: Intake & Output 03/16/25 03/17/25 03/18/25 03/19/25 23:59 23:59 23:59 23:59 Intake Total 380 / 380 200 / 200 Output Total 470 / 470 300 / 300 Balance -90 / -90 -100 / -100 Weight (kg) 64.5 kg Objective General Appearance: positive No acute distress, Alert, Mild distress and Other (Slightly tachypneic, even at rest) Eyes Bilateral: positive Normal inspection, PERRL and EOMI ENT: positive ENT inspection nml, Pharynx nml and No signs of dehydration Neck: positive Nml inspection, Thyroid nml and No JVD Respiratory: positive Chest non-tender, No respiratory distress and Other Cardiovascular: positive No murmur, No gallop and Irregularly irregular; negative Tachycardia or Systolic murmur Abdomen: positive Non-tender, No organomegaly and No distention; negative Guarding or Splenomegaly Back: positive Nml inspection; negative CVA tenderness (R) or CVA tenderness (L) Skin: positive Color nml, No rash, Warm and Dry Extremities: positive Non-tender, Full ROM, Nml appearance and Pedal edema (3+ to knee) Neurologic/Psychiatric: positive Oriented x3, Motor nml and Mood/affect nml Lab Results 03/19/25 08:20 03/19/25 08:20 Other Labs: Lab Results x24hrs 03/19/25 03/19/25 03/18/25 Range/Units 08:20 04:19 22:02 WBC 27.2 H (4.8-10.8) x10^3/uL RBC 3.21 L (4.20-5.40) 10^6/uL Hgb 8.5 L 8.1 L 8.5 L (12.0-16.0) g/dL Hct 29.6 L 28.0 L 29.3 L (37.0-47.0) % MCV 92.2 (81.0-99.0) fL MCH 26.5 L (27.0-31.0) pg MCHC 28.7 L (32.0-36.0) g/dL RDW 19.0 H (12.0-15.0) % Plt Count 293 (130-450) 10^3/uL MPV 10.1 (7.9-10.8) fL Neut # (Auto) Lymph # (Auto) [place] # (Auto) Eos # (Auto) Baso # (Auto) Absolute Nucleated RBC Total Counted Band Neuts % (Manual) (0 - 10) % Reactive Lymphs % (Man) % Abnorm Lymph % (Manual) % Myelocytes % ( - 0) % Nucleated RBC % Neutrophils # (Manual) (1.5-6.6) 10^3/uL Lymphocytes # (Manual) (1.5-3.5) 10^3/uL Monocytes # (Manual) (0.0-1.0) 10^3/uL Eosinophils # (Manual) (0-0.7) 10^3/uL Basophils # (Manual) (0-0.1) 10^3/uL Nucleated RBCs % Differential Comment RBC Morph Micro Appear (NORMAL) Sodium 139 (135-145) mmol/L Potassium 4.1 (3.5-4.5) mmol/L Chloride 100 L (101-111) mmol/L Carbon Dioxide 31 (21-32) mmol/L Anion Gap 8.0 (6-13) BUN 17 (6-20) mg/dL Creatinine 0.9 (0.6-1.3) mg/dL Estimated GFR (MDRD) 60 L (>89) Glucose 122 H (74-104) mg/dL Calcium 9.3 (8.5-10.3) mg/dL Magnesium (1.7-2.3) mg/dL Total Bilirubin (0.2-1.0) mg/dL AST (10-42) IU/L ALT (10-60) IU/L Alkaline Phosphatase (42-121) IU/L B-Natriuretic Peptide (5-100) pg/mL Total Protein (6.4-8.9) g/dL Albumin (3.2-5.5) g/dL Globulin (2.1-4.2) g/dL Albumin/Globulin Ratio (1.0-2.2) Urine Color Urine Clarity (CLEAR) Urine pH (5.0-7.5) PH Ur Specific [place] (1.002-1.030) Urine Protein (NEGATIVE) mg/dL Urine Glucose (UA) (NEGATIVE) mg/dL Urine Ketones (NEGATIVE) mg/dL Urine Occult Blood (NEGATIVE) Urine Nitrite (NEGATIVE) Urine Bilirubin (NEGATIVE) Urine Urobilinogen (NORMAL) E.U./dL Ur Leukocyte Esterase (NEGATIVE) Urine RBC (0-5) /HPF Urine WBC (0-5) /HPF Ur Squamous Epith Cells (<= Few) Urine Bacteria (None Seen) /HPF Urine Culture Comments Blood Type Antibody Screen Crossmatch IS Only 03/18/25 03/18/25 03/18/25 Range/Units 21:52 19:20 15:30 WBC (4.8-10.8) x10^3/uL RBC (4.20-5.40) 10^6/uL Hgb (12.0-16.0) g/dL Hct (37.0-47.0) % MCV (81.0-99.0) fL MCH (27.0-31.0) pg MCHC (32.0-36.0) g/dL RDW (12.0-15.0) % Plt Count (130-450) 10^3/uL MPV (7.9-10.8) fL Neut # (Auto) Lymph # (Auto) [place] # (Auto) Eos # (Auto) Baso # (Auto) Absolute Nucleated RBC Total Counted Band Neuts % (Manual) (0 - 10) % Reactive Lymphs % (Man) % Abnorm Lymph % (Manual) % Myelocytes % ( - 0) % Nucleated RBC % Neutrophils # (Manual) (1.5-6.6) 10^3/uL Lymphocytes # (Manual) (1.5-3.5) 10^3/uL Monocytes # (Manual) (0.0-1.0) 10^3/uL Eosinophils # (Manual) (0-0.7) 10^3/uL Basophils # (Manual) (0-0.1) 10^3/uL Nucleated RBCs % Differential Comment RBC Morph Micro Appear (NORMAL) Sodium (135-145) mmol/L Potassium (3.5-4.5) mmol/L Chloride (101-111) mmol/L Carbon Dioxide (21-32) mmol/L Anion Gap (6-13) BUN (6-20) mg/dL Creatinine (0.6-1.3) mg/dL Estimated GFR (MDRD) (>89) Glucose (74-104) mg/dL Calcium (8.5-10.3) mg/dL Magnesium (1.7-2.3) mg/dL Total Bilirubin (0.2-1.0) mg/dL AST (10-42) IU/L ALT (10-60) IU/L Alkaline Phosphatase (42-121) IU/L B-Natriuretic Peptide 403 H (5-100) pg/mL Total Protein (6.4-8.9) g/dL Albumin (3.2-5.5) g/dL Globulin (2.1-4.2) g/dL Albumin/Globulin Ratio (1.0-2.2) Urine Color YELLOW YELLOW Urine Clarity HAZY HAZY (CLEAR) Urine pH 5.0 6.0 (5.0-7.5) PH Ur Specific [place] 1.020 1.015 (1.002-1.030) Urine Protein TRACE NEGATIVE (NEGATIVE) mg/dL Urine Glucose (UA) NEGATIVE NEGATIVE (NEGATIVE) mg/dL Urine Ketones NEGATIVE NEGATIVE (NEGATIVE) mg/dL Urine Occult Blood NEGATIVE NEGATIVE (NEGATIVE) Urine Nitrite NEGATIVE NEGATIVE (NEGATIVE) Urine Bilirubin NEGATIVE NEGATIVE (NEGATIVE) Urine Urobilinogen 0.2 (NORMAL) 0.2 (NORMAL) (NORMAL) E.U./dL Ur Leukocyte Esterase MODERATE H TRACE H (NEGATIVE) Urine RBC None Seen 0-5 (0-5) /HPF Urine WBC 11-25 H 6-10 H (0-5) /HPF Ur Squamous Epith Cells FEW Squamous MOD Squamous H (<= Few) Urine Bacteria Moderate H Moderate H (None Seen) /HPF Urine Culture Comments INDICATED Blood Type Antibody Screen Crossmatch IS Only 03/18/25 03/18/25 03/18/25 Range/Units 13:20 12:49 12:49 WBC (4.8-10.8) x10^3/uL RBC (4.20-5.40) 10^6/uL Hgb (12.0-16.0) g/dL Hct (37.0-47.0) % MCV (81.0-99.0) fL MCH (27.0-31.0) pg MCHC (32.0-36.0) g/dL RDW (12.0-15.0) % Plt Count (130-450) 10^3/uL MPV (7.9-10.8) fL Neut # (Auto) Lymph # (Auto) [place] # (Auto) Eos # (Auto) Baso # (Auto) Absolute Nucleated RBC Total Counted Band Neuts % (Manual) (0 - 10) % Reactive Lymphs % (Man) % Abnorm Lymph % (Manual) % Myelocytes % ( - 0) % Nucleated RBC % Neutrophils # (Manual) (1.5-6.6) 10^3/uL Lymphocytes # (Manual) (1.5-3.5) 10^3/uL Monocytes # (Manual) (0.0-1.0) 10^3/uL Eosinophils # (Manual) (0-0.7) 10^3/uL Basophils # (Manual) (0-0.1) 10^3/uL Nucleated RBCs % Differential Comment RBC Morph Micro Appear 1+ MACROCYTOSIS 1+ TEARDROP CELLS (NORMAL) Sodium 140 (135-145) mmol/L Potassium 3.5 (3.5-4.5) mmol/L Chloride 102 (101-111) mmol/L Carbon Dioxide 33 H (21-32) mmol/L Anion Gap 5.0 L (6-13) BUN 19 (6-20) mg/dL Creatinine 0.8 (0.6-1.3) mg/dL Estimated GFR (MDRD) 68 L (>89) Glucose 106 H (74-104) mg/dL Calcium 9.2 (8.5-10.3) mg/dL Magnesium 2.0 (1.7-2.3) mg/dL Total Bilirubin 1.3 H (0.2-1.0) mg/dL AST 39 (10-42) IU/L ALT 26 (10-60) IU/L Alkaline Phosphatase 105 (42-121) IU/L B-Natriuretic Peptide 482 H (5-100) pg/mL Total Protein 6.1 L (6.4-8.9) g/dL Albumin 3.3 (3.2-5.5) g/dL Globulin 2.8 (2.1-4.2) g/dL Albumin/Globulin Ratio 1.2 (1.0-2.2) Urine Color Urine Clarity (CLEAR) Urine pH (5.0-7.5) PH Ur Specific [place] (1.002-1.030) Urine Protein (NEGATIVE) mg/dL Urine Glucose (UA) (NEGATIVE) mg/dL Urine Ketones (NEGATIVE) mg/dL Urine Occult Blood (NEGATIVE) Urine Nitrite (NEGATIVE) Urine Bilirubin (NEGATIVE) Urine Urobilinogen (NORMAL) E.U./dL Ur Leukocyte Esterase (NEGATIVE) Urine RBC (0-5) /HPF Urine WBC (0-5) /HPF Ur Squamous Epith Cells (<= Few) Urine Bacteria (None Seen) /HPF Urine Culture Comments Blood Type O POSITIVE Antibody Screen NEGATIVE Crossmatch IS Only See Detail 03/18/25 03/18/25 03/18/25 Range/Units 12:49 12:49 12:49 WBC (4.8-10.8) x10^3/uL RBC (4.20-5.40) 10^6/uL Hgb (12.0-16.0) g/dL Hct (37.0-47.0) % MCV (81.0-99.0) fL MCH (27.0-31.0) pg MCHC (32.0-36.0) g/dL RDW (12.0-15.0) % Plt Count (130-450) 10^3/uL MPV (7.9-10.8) fL Neut # (Auto) Lymph # (Auto) [place] # (Auto) Eos # (Auto) Baso # (Auto) Absolute Nucleated RBC Total Counted Band Neuts % (Manual) (0 - 10) % Reactive Lymphs % (Man) % Abnorm Lymph % (Manual) % Myelocytes % ( - 0) % Nucleated RBC % Neutrophils # (Manual) (1.5-6.6) 10^3/uL Lymphocytes # (Manual) (1.5-3.5) 10^3/uL Monocytes # (Manual) (0.0-1.0) 10^3/uL Eosinophils # (Manual) (0-0.7) 10^3/uL Basophils # (Manual) (0-0.1) 10^3/uL Nucleated RBCs % Differential Comment RBC Morph Micro Appear 1+ POLYCHROMASIA 2+ MICROCYTOSIS 1+ OVALOCYTES (NORMAL) Sodium (135-145) mmol/L Potassium (3.5-4.5) mmol/L Chloride (101-111) mmol/L Carbon Dioxide (21-32) mmol/L Anion Gap (6-13) BUN (6-20) mg/dL Creatinine (0.6-1.3) mg/dL Estimated GFR (MDRD) (>89) Glucose (74-104) mg/dL Calcium (8.5-10.3) mg/dL Magnesium (1.7-2.3) mg/dL Total Bilirubin (0.2-1.0) mg/dL AST (10-42) IU/L ALT (10-60) IU/L Alkaline Phosphatase (42-121) IU/L B-Natriuretic Peptide (5-100) pg/mL Total Protein (6.4-8.9) g/dL Albumin (3.2-5.5) g/dL Globulin (2.1-4.2) g/dL Albumin/Globulin Ratio (1.0-2.2) Urine Color Urine Clarity (CLEAR) Urine pH (5.0-7.5) PH Ur Specific [place] (1.002-1.030) Urine Protein (NEGATIVE) mg/dL Urine Glucose (UA) (NEGATIVE) mg/dL Urine Ketones (NEGATIVE) mg/dL Urine Occult Blood (NEGATIVE) Urine Nitrite (NEGATIVE) Urine Bilirubin (NEGATIVE) Urine Urobilinogen (NORMAL) E.U./dL Ur Leukocyte Esterase (NEGATIVE) Urine RBC (0-5) /HPF Urine WBC (0-5) /HPF Ur Squamous Epith Cells (<= Few) Urine Bacteria (None Seen) /HPF Urine Culture Comments Blood Type Antibody Screen Crossmatch IS Only 03/18/25 Range/Units 12:49 WBC 21.0 H (4.8-10.8) x10^3/uL RBC 2.55 L (4.20-5.40) 10^6/uL Hgb 6.8 L* (12.0-16.0) g/dL Hct 24.7 L (37.0-47.0) % MCV 96.9 (81.0-99.0) fL MCH 26.7 L (27.0-31.0) pg MCHC 27.5 L (32.0-36.0) g/dL RDW 18.1 H (12.0-15.0) % Plt Count 328 (130-450) 10^3/uL MPV 10.3 (7.9-10.8) fL Neut # (Auto) Not Reportable Lymph # (Auto) Not Reportable [place] # (Auto) Not Reportable Eos # (Auto) Not Reportable Baso # (Auto) Not Reportable Absolute Nucleated RBC Not Reportable Total Counted 100 Band Neuts % (Manual) 1 (0 - 10) % Reactive Lymphs % (Man) 2 % Abnorm Lymph % (Manual) 0 % Myelocytes % 13 H ( - 0) % Nucleated RBC % Not Reportable Neutrophils # (Manual) 15.1 H (1.5-6.6) 10^3/uL Lymphocytes # (Manual) 3.2 (1.5-3.5) 10^3/uL Monocytes # (Manual) 0.0 (0.0-1.0) 10^3/uL Eosinophils # (Manual) 0.0 (0-0.7) 10^3/uL Basophils # (Manual) 0.0 (0-0.1) 10^3/uL Nucleated RBCs 12 % Differential Comment MANUAL DIFFERENTIAL RBC Morph Micro Appear 2+ HYPOCHROMASIA (NORMAL) Sodium (135-145) mmol/L Potassium (3.5-4.5) mmol/L Chloride (101-111) mmol/L Carbon Dioxide (21-32) mmol/L Anion Gap (6-13) BUN (6-20) mg/dL Creatinine (0.6-1.3) mg/dL Estimated GFR (MDRD) (>89) Glucose (74-104) mg/dL Calcium (8.5-10.3) mg/dL Magnesium (1.7-2.3) mg/dL Total Bilirubin (0.2-1.0) mg/dL AST (10-42) IU/L ALT (10-60) IU/L Alkaline Phosphatase (42-121) IU/L B-Natriuretic Peptide (5-100) pg/mL Total Protein (6.4-8.9) g/dL Albumin (3.2-5.5) g/dL Globulin (2.1-4.2) g/dL Albumin/Globulin Ratio (1.0-2.2) Urine Color Urine Clarity (CLEAR) Urine pH (5.0-7.5) PH Ur Specific [place] (1.002-1.030) Urine Protein (NEGATIVE) mg/dL Urine Glucose (UA) (NEGATIVE) mg/dL Urine Ketones (NEGATIVE) mg/dL Urine Occult Blood (NEGATIVE) Urine Nitrite (NEGATIVE) Urine Bilirubin (NEGATIVE) Urine Urobilinogen (NORMAL) E.U./dL Ur Leukocyte Esterase (NEGATIVE) Urine RBC (0-5) /HPF Urine WBC (0-5) /HPF Ur Squamous Epith Cells (<= Few) Urine Bacteria (None Seen) /HPF Urine Culture Comments Blood Type Antibody Screen Crossmatch IS Only Assessment/Plan Problem List (1) Acute upper gastrointestinal bleeding: Impression: Patient presents with a hemoglobin of 6.8. Improved to 8.5 after one unit of blood. Baseline is about 7.5. Also endorses dark stools at home for about 2 weeks. Stool guaiac is positive. Hemoblobin stable. No active GI bleeding. IV Protonix 40 mg twice daily switched to oral tabs. Hold home Eliquis. Start clear liquids this AM. General Surgery consulted in case of need for EGD - spoke with Dr. Montano, will hold on consult/EGD today as hemoglobin has stabilized. (2) CHF (congestive heart failure): Impression: Patient with a history of congestive heart failure, with reduced EF, unknown ejection fraction. I have requested records from her furniture stainer, Dr. Hager, at [facility]. Pending. proBNP slightly elevated. Received a dose of IV Lasix. Continue diuresis today with IV Lasix 20mg BID. Qualifiers: Heart failure chronicity: chronic Heart failure type: unspecified Q ualified Code(s): I50.9 - Heart failure, unspecified (3) Leukocytosis: Impression: Patient has leukocytosis of 27,000. Per her, this has been happening in the outpatient setting, and her PCP has referred her to early childhood assistant for bone marrow biopsy and further evaluation. Blood cultures are ordered, pending. UA is positive for an infection. Will start IV Rocephin. Continue to trend. Qualifiers: Leukocytosis type: unspecified Qualified Code(s): D72.829 - Elevated white blood cell count, unspecified (4) Shortness of breath: Impression: Likely multifactorial secondary to congestive heart failure exacerbation as well as anemia. Treatment as above. (5) Anemia due to acute blood loss: Impression: Acute on chronic anemia with positive guaiac. Should receive complete outpatient workup including colonoscopy. Patient should also see hematology in the outpatient setting for further workup including bone marrow biopsy. Outpatient doctor has completed iron studiesvitamin B12 is within normal limits, folate is within normal limits. Iron levels were high in 2023 at 239, and when repeated in January 2025 or 44. TIBC is low, percent saturation is normal, and ferritin is normal as well. (6) Atrial fibrillation: Impression: Hold Eliquis at this time. Continue metoprolol. Qualifiers: Atrial fibrillation type: unspecified Qualified Code(s): I48.91 - Unspecified atrial fibrillation (7) Hyperlipidemia: Impression: Continue statin. Qualifiers: Hyperlipidemia type: unspecified Qualified Code(s): E78.5 - Hyperlipidemia, unspecified (8) HTN (hypertension): Impression: Hold antihypertensives in setting of active GI bleed. Qualifiers: Hypertension type: unspecified Qualified Code(s): I10 - Essential (primary) hypertension
[2025-03-19] MEDS: MORPHINE 2 MG/ML CARPUJECT IVP PRN (11:59)
[2025-03-19] MEDS: ACETAMINOPHEN 325 MG TABLET PO PRN (12:00)
[2025-03-19] MEDS: SODIUM CHLORIDE FLUSH 0.9% 10 ML SYRINGE IVP PRN (12:00)
[2025-03-19] MEDS: FUROSEMIDE 20 MG/2 ML VIAL IVP SCH (13:40)
--- NOTE | 2025-03-19 18:01 | PHARMACY PROGRESS NOTE ---
Best Possible Medication History Admit Date and Time: 03/18/25 [id number] Home Medications Medication Instructions Recorded Confirmed Type atorvastatin 40 mg tablet (Lipitor) 80 mg PO HS 03/18/25 History acetaminophen 500 mg tablet 1,000 mg PO TID 10/29/23 0 03/18/25 History (Acetaminophen Extra Strength) amlodipine 5 mg tablet 5 mg PO DAILY 01/14/2403/18 History cilostazol 50 mg tablet 50 mg PO BID 01/14/24 History ondansetron 4 mg disintegrating 4 mg translingual Q12H PRN Nausea 01/14/24 03/18/25 History tablet / Vomiting multivitamin with folic acid 400 1 tab PO DAILYWM 12/2503/18/25 Rx mcg tablet (Thera) furosemide 20 mg tablet (Lasix) 20 mg PO DAILY #14 tab s 01/14/25 03/18/25 Rx gabapentin 100 mg capsule 400 mg PO QPM 02/15/2503/19 History trazodone 50 mg tablet 100 mg PO QPM PRN Insomnia 0 02/15/25 03/19/25 History metoprolol succinate 25 mg 12.5 mg PO DAILY 03/18/25 0 03/19/25 History tablet,extended release 24 hr diphenoxylate-atropine 2.5 1 - 2 tab PO Q6H PRN diarrh ea 03/19/25 03/19/25 History mg-0.025 mg tablet Processed by: Pharmacy Medications reviewed in ED?: Yes Medication History completed: Yes Patient Interview: Completed Secondary Source(s): Insurance records [facility] Statement: As the person ultimately responsible for medication therapy, providers are able to order a medication from an existing home medication list in [facility] via the "Reconcile Routine" prior to Confirmation of that medication by program support clerk. Such practice is discouraged except when the physician, in their clinical judgment, deems that a medical need exists for a medication without regard to previous use.
[2025-03-19] MEDS: GABAPENTIN 100 MG CAPSULE PO SCH (20:28)
[2025-03-19] MEDS: ATORVASTATIN 40 MG TABLET PO SCH (20:29)
[2025-03-19] MEDS: ONDANSETRON 4 MG/2 ML VIAL IVP PRN (20:56)
[2025-03-20 05:03] LABS: HCT - HEMATOCRIT 26.6 % (37.0-47.0); HGB - HEMOGLOBIN 7.6 g/dL (12.0-16.0); MEAN PLATELET VOLUME 10.1 fL (7.9-10.8); PLT - PLATELET COUNT 230.0 10^3/uL (130-450); RED CELL DISTRIBUTION WIDTH 19.0 % (12.0-15.0)
[2025-03-20 05:20] LABS: BUN - BLOOD UREA NITROGEN 17.0 mg/dL (6-20); CARBON DIOXIDE - CO2 32.0 mmol/L (21-32); CREATININE 0.8 mg/dL (0.6-1.3); GFR - MDRD 68.0 (>89)
[2025-03-20] MEDS: MULTIVITAMIN TABLET PO SCH (08:40)
--- NOTE | 2025-03-20 12:50 | PROVIDER PROGRESS NOTE ---
Subjective Prog Note Date Prog Note Date: 03/20/25 Prog Note Time: 12:40 Subjective Pt reports feeling: Improved Subjective: She is still pretty tired. But she says that she feels better. She is actually able to sit up in a chair and speak without completely losing her breath. She still gets very short of breath and tachypneic with walking to the bathroom. Because she has been so tachypneic, she thought that maybe she qualified for oxygen. She did have a nasal cannula on March 10, and December 2023. But with this stay she has been on room air and saturating at 92 to 96%. She is sitting up eating breakfast. She has eaten 25 to 75% of her food. No bowel movement since admission. Current Medications Current Medications Current Medications: Current Medications Generic Name Dose Route Start Last Admin Trade Name Freq PRN Reason Stop Dose Admin Acetaminophen 650 mg 03/19/25 11:43 03/20/25 12:28 Acetaminophen 325 Mg Tablet PO 650 mg Q4HR PRN Administration Pain or Fever > 38C (100.4F) Atorvastatin Calcium 80 mg 03/19/25 21:00 03/19/25 20:29 Atorvastatin 40 Mg Tablet PO 80 mg HS NELLY Administration Ceftriaxone Sodium 1 gm 03/19/25 09:00 03/20/25 08:40 Ceftriaxone 1 Gm Vial IVP 1 gm DAILY NELLY Administration Furosemide 20 mg 03/19/25 14:00 03/20/25 06:03 Furosemide 20 Mg/2 Ml Vial IVP 20 mg BIDDIURETIC NELLY Administration Gabapentin 200 mg 03/19/25 21:00 03/19/25 20:28 Gabapentin 100 Mg Capsule PO 200 mg QPM NELLY Administration Hydroxyzine Pamoate 25 mg 03/19/25 11:43 03/19/25 20:28 Hydroxyzine Pamoate 25 Mg Capsule PO 25 mg BID PRN Administration Anxiety Lidocaine 1 patch 03/18/25 17:51 03/19/25 09:08 Lidocaine Patch 4% TOP 1 patch DAILY PRN Administration PAIN 5-7 Morphine Sulfate 2 mg 03/19/25 11:44 03/20/25 11:14 Morphine 2 Mg/Ml Carpuject IVP 2 mg Q6HR PRN Administration Severe Pain (Level 7-10) Multivitamins 1 tab 03/20/25 08:00 03/20/25 08:40 Multivitamin Tablet PO Not Given DAILYWM NELLY Ondansetron HCl 4 mg 03/19/25 20:48 03/19/25 20:56 Ondansetron 4 Mg/2 Ml Vial IVP 4 mg Q4HR PRN Administration Nausea / Vomiting Oxycodone HCl 5 mg 03/18/25 17:53 03/20/25 09:32 Oxycodone 5 Mg Tablet PO 5 mg Q4HR PRN Administration Moderate Pain (Level 4-6) Pantoprazole Sodium 40 mg 03/20/25 16:00 Pantoprazole 40 Mg Tablet PO [facility]AC [facility] Sodium Chloride 10 ml 03/18/25 14:11 03/19/25 19:13 Sodium Chloride Flush 0.9% 10 Ml Syringe IVP 10 ml PRN PRN Administration NEEDED PER PROVIDER ORDERS Sodium Chloride 10 ml 03/18/25 17:00 03/20/25 08:40 Sodium Chloride Flush 0.9% 10 Ml Syringe IVP 10 ml 0100,0900,1700 NELLY Administration Sterile Water 10 ml 03/19/25 09:00 03/20/25 08:40 Water For Injection,Sterile 10 Ml Vial MC 10 ml DAILY NELLY Administration Trazodone HCl 100 mg 03/19/25 20:02 03/19/25 20:28 Trazodone 50 Mg Tablet PO 100 mg QPM PRN Administration Insomnia Objective Vital Signs/Intake & Output Reviewed Vital Signs: Yes Vital Signs: Vital Signs x48h Temp Resp BP Pulse Ox 03/20/25 08:44 36.5 C 16 127/71 96 Intake & Output: Intake & Output 03/17/25 03/18/25 03/19/25 03/20/25 23:59 23:59 23:59 23:59 Intake Total 380 / 380 950 / 950 360 / 360 Output Total 470 / 470 700 / 700 650 / 650 Balance -90 / -90 250 / 250 -290 / -290 Weight (kg) 64.5 kg Objective General Appearance: positive No acute distress, Alert and Other (Colleen tiny elderly female who is alert, oriented, cheerful, chatting away, and following commands. 5 foot 2 inches tall, 64.5 kg) Eyes Bilateral: positive Normal inspection, PERRL and EOMI ENT: positive Pharynx nml and No signs of dehydration Neck: positive No JVD; negative Stiff neck or Carotid bruit Respiratory: positive Chest non-tender, No respiratory distress and Breath sounds nml Cardiovascular: positive Regular rate & rhythm and Tachycardia (Pulse rate consistently in the high 90s since yesterday.) Abdomen: positive Non-tender, No organomegaly and Nml bowel sounds Skin: positive Warm, Dry and Pallor Extremities: positive Non-tender, Full ROM and Nml appearance Neurologic/Psychiatric: positive Oriented x3, CN's nml (2-12) and Motor nml Lab Results 03/20/25 04:12 03/20/25 04:12 Other Labs: Lab Results x24hrs 03/20/25 Range/Units 04:12 WBC 20.0 H (4.8-10.8) x10^3/uL RBC 2.84 L (4.20-5.40) 10^6/uL Hgb 7.6 L (12.0-16.0) g/dL Hct 26.6 L (37.0-47.0) % MCV 93.7 (81.0-99.0) fL MCH 26.8 L (27.0-31.0) pg MCHC 28.6 L (32.0-36.0) g/dL RDW 19.0 H (12.0-15.0) % Plt Count 230 (130-450) 10^3/uL MPV 10.1 (7.9-10.8) fL Sodium 139 (135-145) mmol/L Potassium 4.0 (3.5-4.5) mmol/L Chloride 101 (101-111) mmol/L Carbon Dioxide 32 (21-32) mmol/L Anion Gap 6.0 (6-13) BUN 17 (6-20) mg/dL Creatinine 0.8 (0.6-1.3) mg/dL Estimated GFR (MDRD) 68 L (>89) Glucose 117 H (74-104) mg/dL Calcium 8.7 (8.5-10.3) mg/dL Magnesium 2.1 (1.7-2.3) mg/dL Assessment/Plan Problem List (1) Acute upper gastrointestinal bleeding: Impression: Patient presents with a hemoglobin of 6.8. Improved to 8.5 after one unit of blood. Baseline is about 7.5. Today she is 7.6. Also endorses dark stools at home for about 2 weeks. Stool guaiac is positive.But she has not had any active bowel movement since admission.Her IV Protonix was switched to oral Protonix on March 19. We are holding her home [place]. She tolerated clear liquids yesterday and as such I am advancing her diet today.I am not happy that the hemoglobin dropped close to 1 g today. I will continue to monitor. Plan is for discharge tomorrow. But if her hemoglobin drops, she may have to stay another day. General Surgery consulted in case of need for EGD - spoke with Dr. Montano, will hold on consult/EGD today as hemoglobin has stabilized. (2) CHF (congestive heart failure): Impression: Patient with a history of congestive heart failure, with reduced EF, unknown ejection fraction. I have requested records from her field reviewer, Dr. Hager, at [facility]. Pending. proBNP slightly elevated. I am continuing her Lasix 20 mg IV push. Weight was 60 kg on March 10. In the ER she was 63.9 kg. Today she is 64.9 kg. Urine output has been between 470 cc and 700 cc with this Lasix. Will increase to 40 mg since she appears to be with water weight increase and not a negative fluid balance Qualifiers: Heart failure chronicity: chronic Heart failure type: unspecified Q ualified Code(s): I50.9 - Heart failure, unspecified (3) Leukocytosis: Impression: Patient has leukocytosis of 27,000. Per her, this has been happening in the outpatient setting, and her PCP has referred her to product responsibility liaison for bone marrow biopsy and further evaluation. Previous smear review was in March 10 as ordered by the ER provider. She has hypochromic microcytic anemia with nucleated red cells. Neutrophilia with a left shift and no definitive dysplastic features. Blood cultures are without any growth. UA is positive for infection. She received ciprofloxacin on the , and has received Rocephin on the and today. I should be able to stop Rocephin tomorrow. Qualifiers: Leukocytosis type: unspecified Qualified Code(s): D72.829 - Elevated white blood cell count, unspecified (4) Shortness of breath: Impression: Likely multifactorial secondary to congestive heart failure exacerbation as well as anemia. Treatment as above. (5) Anemia due to acute blood loss: Impression: Acute on chronic anemia with positive guaiac. Should receive complete outpatient workup including colonoscopy. Patient should also see hematology in the outpatient setting for further workup including bone marrow biopsy. Outpatient doctor has completed iron studiesvitamin B12 is within normal limits, folate is within normal limits. Iron levels were high in 2023 at 239, and when repeated in January 2025 or . TIBC is low, percent saturation is normal, and ferritin is normal as well. (6) Atrial fibrillation: Impression: Hold Eliquis at this time. Continue metoprolol. Qualifiers: Atrial fibrillation type: unspecified Qualified Code(s): I48.91 - Unspecified atrial fibrillation (7) Hyperlipidemia: Impression: Continue statin. Qualifiers: Hyperlipidemia type: unspecified Qualified Code(s): E78.5 - Hyperlipidemia, unspecified (8) HTN (hypertension): Impression: Hold antihypertensives in setting of active GI bleed. Qualifiers: Hypertension type: unspecified Qualified Code(s): I10 - Essential (primary) hypertension
[2025-03-20] MEDS: FUROSEMIDE 20 MG/2 ML VIAL IVP SCH (13:28)
[2025-03-20 15:27] LABS: HCT - HEMATOCRIT 29.0 % (37.0-47.0); HGB - HEMOGLOBIN 8.1 g/dL (12.0-16.0); MEAN PLATELET VOLUME 10.8 fL (7.9-10.8); PLT - PLATELET COUNT 246.0 10^3/uL (130-450); RED CELL DISTRIBUTION WIDTH 18.9 % (12.0-15.0)
[2025-03-20] MEDS: PANTOPRAZOLE 40 MG TABLET PO SCH (18:40)
[2025-03-21 09:25] LABS: HCT - HEMATOCRIT 28.2 % (37.0-47.0); HGB - HEMOGLOBIN 8.1 g/dL (12.0-16.0); MEAN PLATELET VOLUME 10.5 fL (7.9-10.8); PLT - PLATELET COUNT 259.0 10^3/uL (130-450); RED CELL DISTRIBUTION WIDTH 18.4 % (12.0-15.0)
[2025-03-21 09:37] LABS: BUN - BLOOD UREA NITROGEN 20.0 mg/dL (6-20); CARBON DIOXIDE - CO2 32.0 mmol/L (21-32); CREATININE 1.0 mg/dL (0.6-1.3); GFR - MDRD 53.0 (>89)
--- NOTE | 2025-03-21 09:44 | Discharge Summary ---
"Discharge Summary Admit Date: 03/18/25 Discharge Date: 03/22/25 Discharging Provider: Dr. Erwin Chandra Primary Care Provider: Dr. Dyllan Baugh Code Status: Do Not Attempt Resuscitation Discharge Facility Name: Home with Home Health DIAGNOSES Discharge Diagnoses with Status of Each Condition: Acute upper GI bleedpatient presented with hemoglobin of 6.8has been stable around 8.1 after one unit of blood here. She does have a history of iron deficiency anemia and has been taking iron supplements appropriately with vitamin C supplementation in the outpatient setting. Stool guaiac was positive. She was advised to continue oral Protonix 40 mg twice daily on discharge. She was advised extensively to follow-up with general surgery to get a colonoscopy completed. CHF Completed diuresis with IV Lasix here. Breathing more comfortably at this time. Continue oral Lasix, cardiac diet, daily ins and outs. Leukocytosispatient has had a leukocytosis is 27,000 while here. She has been having elevated levels in the outpatient setting as well. Here, she completed a course of Rocephin for urinary tract infection. To evaluate further, I did get a CT abdomen/pelvis which showed some biliary dilatation. This was followed with abdominal ultrasound which showed some sludge. She is not having any typical pain there. She does not have any nausea or vomiting. Advised to follow-up with the MRCP or ERCP in the outpatient setting if she does experience pain in that region. Shortness of breathdue to congestive heart failure as well as anemia. Resolved. Anemialikely due to acute blood loss. Continue oral iron supplementation. Patient needs a colonoscopy in the outpatient setting. Atrial fibrillationhold Eliquis at this time. Continue metoprolol. Advised to recheck hemoglobin in 1 week, follow-up with PCP, and resume when they say it is okay to do so. Hyperlipidemiacontinue statin. Hypertensioncontinue home metoprolol and amlodipine. Fractured screw within the distal aspect of the femoral prosthesis of the left femurhas had pain in this left hip since then. She has been told by her orthopedic surgeon that he would not operate on it until her anemia was resolved, and her cardiac status was stable. She needs to follow-up with with the above recommendations prior to this being revised. Dilated biliary duct - Patient had abdominal pain. CT abdomen/pelvis ordered as she had a significant leukocytosis. This showed dilated common bile duct. Followed by abdominal ultrasound which showed the same, as well as gallbladder sludge. Patient was not having symptoms. No fevers or chills. Tolerating food well. Advised that she may require MRCP or ERCP in the future if she has further pain here. HPI History of Present Illness: Patient is a 84-year-old female with a history of atrial fibrillation on Eliquis, heart failure with reduced ejection fraction who presents with worsening shortness of breath. Patient states that for the past 2 to 3 weeks, she has had progressive shortness of breath. This is worsened with activity and lying flat. She recently saw her movie machine operator, last Wednesday, and was switched from diuretic that she cannot recall to Lasix. She has been taking this daily without any relief of her shortness of breath. She endorses a low-salt diet. She tries to take keep under 50 ounces, but she drinks a lot of Pepsi and tea at home. Additionally, she has been having dark stools at home. She states this has been ongoing for about 2 weeks. She has never noticed any bright red blood there. She has never had an EGD or colonoscopy. Of note, she was admitted in 12/2023 for similar bleeding. At that time, her Eliquis was held, and her hemoglobin stabilized without any intervention. Finally, in the outpatient setting, she has been having marked leukocytosis, as high as the 20s, as well as anemia. She was recently referred to a climatology professor, and has an appointment with them on April 11. She has not had a bone marrow biopsy done. She does endorse night sweats. She has not had any weight loss. In the ER, she was slightly tachycardic with heart rate of 89, afebrile, satting 95% on room air, and respiratory rate was 24. Her blood pressure was 118/53. Lab work revealed white count of 21. Her hemoglobin was 6.8, and her baseline appears to be around 7.5. Urinalysis, BMP are ordered, and are pending. She received 1 unit packed red blood cells, as well as PCC. She also got a dose of IV Lasix. Chest x-ray showed cardiomegaly, as well as mild vascular congestion. She is admitted for acute GI bleed, and shortness of breath. CONSULTS | PROCEDURES Procedures: Abdominal ultrasound, abdomen/pelvis CT, chest x-ray HOSPITAL COURSE Hospital Course: Patient is a 84-year-old female with a history of iron deficiency anemia, atrial fibrillation on Eliquis, heart failure with reduced ejection fraction who presented with dark stools and progressive shortness of breath. Patient presented with hemoglobin of 6.8has been stable around 8.1 after one unit of blood here. She does have a history of iron deficiency anemia and has been taking iron supplements appropriately with vitamin C supplementation in the outpatient setting. Stool guaiac was positive. She was advised to continue oral Protonix 40 mg twice daily on discharge. She was advised extensively to follow-up with general surgery to get a colonoscopy completed. For her CHF, she did have lower extremity swelling and bilateral bibasilar crackles. Completed diuresis with IV Lasix here. Breathing more comfortably at this time. Continue oral Lasix, cardiac diet, daily ins and outs. Patient has had a leukocytosis as high as 27,000 while here. She has been having elevated levels in the outpatient setting as well. Here, she completed a course of Rocephin for urinary tract infection. To evaluate further, I did get a CT abdomen/pelvis which showed some biliary dilatation. This was followed with abdominal ultrasound which showed some sludge. She is not having any typical pain there. She does not have any nausea or vomiting. Advised to follow-up with the MRCP or ERCP in the outpatient setting if she does experience pain in that region. She has an appointment with hematology on 04/11 to further evaluate as well. Shortness of breath was attributed to congestive heart failure as well as anemia. Resolved. Anemia was likely due to acute blood loss. Continue oral iron supplementation. Patient needs a colonoscopy in the outpatient setting. Atrial fibrillation - she was advbised hold Eliquis at this time. Continue metoprolol. Advised to recheck hemoglobin in 1 week, follow-up with PCP, and resume when they say it is okay to do so. She has a fractured screw within the distal aspect of the femoral prosthesis of the left femurhas had pain in this left hip since then. She has been told by her orthopedic surgeon that he would not operate on it until her anemia was resolved, and her cardiac status was stable. She needs to follow-up with with the above recommendations prior to this being revised. She was also noted to have a dilated biliary duct as stated above - patient had abdominal pain. CT abdomen/pelvis ordered as she had a significant leukocytosis. This showed dilated common bile duct. Followed by abdominal ultrasound which showed the same, as well as gallbladder sludge. Patient was not having symptoms. No fevers or chills. Tolerating food well. Advised that she may require MRCP or ERCP in the future if she has further pain here. She needs close follow up with a primary care provider, cardiology, general surgery, orthopedic surgery on discharge. ALLERGIES Allergies Allergy/AdvReac Type Severity Reaction Status Date / Time clopidogrel bisulfate * Allergy Severe Rash Verified 03/18/25 12:07 (From Plavix) erythromycin base Allergy Mild Rash Verified 03/18/25 12:07 (Erythromycin Base) Penicillins Allergy Mild Rash Verified 03/18/25 12:07 spironolactone Allergy Mild Rash Verified 03/18/25 12:07 diazepam (From Valium) AdvReac Mild Anxiety Verified 03/18/25 12:07 MEDICATIONS Ambulatory Orders Medication Instructions Recorded Confirmed atorvastatin 40 mg tablet (Lipitor) 80 mg PO HS 03/18/25 acetaminophen 500 mg tablet 1,000 mg PO TID 10/29/23 0 03/18/25 (Acetaminophen Extra Strength) amlodipine 5 mg tablet 5 mg PO DAILY 01/14/2403/18 cilostazol 50 mg tablet 50 mg PO BID 01/14/24 ondansetron 4 mg disintegrating 4 mg translingual Q12H PRN Nausea 01/14/24 03/18/25 tablet / Vomiting multivitamin with folic acid 400 1 tab PO DAILYWM 12/2503/18/25 mcg tablet (Thera) furosemide 20 mg tablet (Lasix) 20 mg PO DAILY #14 tab s 01/14/25 03/18/25 gabapentin 100 mg capsule 400 mg PO QPM 02/15/2503/19 trazodone 50 mg tablet 100 mg PO QPM PRN Insomnia 0 02/15/25 03/19/25 metoprolol succinate 25 mg 12.5 mg PO DAILY 03/18/25 0 03/19/25 tablet,extended release 24 hr diphenoxylate-atropine 2.5 1 - 2 tab PO Q6H PRN diarrh ea 03/19/25 03/19/25 mg-0.025 mg tablet pantoprazole 40 mg tablet,delayed 40 mg PO BIDAC #60 t abs 03/21/25 release oxycodone 5 mg tablet 5 mg PO Q8H PRN pain #14 tab s 03/22/25 PHYSICAL EXAM AT DISCHARGE Vital Signs: Vital Signs x48h Temp Pulse Resp BP Pulse Ox 03/22/25 13:55 97.9 F 78 18 111/65 96 03/22/25 08:07 98.1 F 84 16 106/60 92 General Appearance: positive No acute distress, Alert, No distress Eyes Bilateral: positive Normal inspection, PERRL and EOMI ENT: positive ENT inspection nml, Pharynx nml and No signs of dehydration Neck: positive Nml inspection, Thyroid nml and No JVD Respiratory: positive Chest non-tender, No respiratory distress and Other Cardiovascular: positive No murmur, No gallop and Irregularly irregular; negative Tachycardia or Systolic murmur Abdomen: positive Non-tender, No organomegaly and No distention; negative Guarding or Splenomegaly Back: positive Nml inspection; negative CVA tenderness (R) or CVA tenderness (L) Skin: positive Color nml, No rash, Warm and Dry Extremities: positive Non-tender, Full ROM, Nml appearance and Pedal edema (1+ to knee, improved) Neurologic/Psychiatric: positive Oriented x3, Motor nml and Mood/affect nml LABS 03/22/25 05:39 03/22/25 05:39 FOLLOW UP Follow Up: She needs close follow up with a primary care provider, cardiology, general surgery, orthopedic surgery on discharge. TIME SPENT Time Spent in Discharge (Minutes): 35 Discharge Plan Discharge Patient Disposition: 06 Home Health Service Condition: Stable Prescriptions: New pantoprazole 40 mg Tablet,Delayed Release (Dr/Ec) 40 mg PO BIDAC Qty: 60 0RF oxycodone 5 mg tablet 5 mg PO Q8H PRN (Reason: pain) Qty: 14 0RF Continued atorvastatin [Lipitor] 40 MG tablet 80 mg PO HS trazodone 50 mg tablet 100 mg PO QPM PRN (Reason: Insomnia) gabapentin 100 mg capsule 400 mg PO QPM acetaminophen [Acetaminophen Extra Strength] 500 MG tablet 1,000 mg PO TID cilostazol 50 MG tablet 50 mg PO BID amlodipine 5 MG tablet 5 mg PO DAILY ondansetron 4 MG tablet,disintegrating 4 mg translingual Q12H PRN (Reason: Nausea / Vomiting) multivitamin with folic acid [Thera] 1 TAB tablet 1 tab PO DAILYWM 0RF furosemide [Lasix] 20 mg tablet 20 mg PO DAILY Qty: 14 0RF metoprolol succinate 25 mg tablet extended release 24 hr 12.5 mg PO DAILY Patient Comments: TAKE 1/2 TABLET BY MOUTH ONCE DAILY diphenoxylate-atropine 2.5-0.025 mg tablet 1 - 2 tab PO Q6H PRN (Reason: diarrhea) Patient Comments: TAKE 1 TO 2 TABLETS BY MOUTH EVERY SIX HOURS NEEDED, up to 8 tablets daily Activity Restrictions: Activity as Tolerated Diet: Regular Health Concerns: You came in because of worsening shortness of breath over the last few days. We talked about how this was likely attributed to a few things: First of all, your anemia. Your blood levels have been low, even in the outpatient setting. You are having some dark stools. You received 1 unit of blood while here, and your hemoglobin or blood levels have stabilized. I would like you to hold your Eliquis for an additional week, have your levels rechecked, and then restart if they continue to be stable after consulting with your primary care provider and your movie machine operator. You can also continue your iron pill every other day with vitamin C as prescribed. As you know, this can sometimes cause constipation, which you say is never a problem you have had. I would also like you to continue Protonix 40 mg twice a day, which helps suppress some acid in your stomach and prevents the formation of ulcers which can lead to bleeding. As discussed, you need to follow-up with a general surgeon in the outpatient and make sure that you get a colonoscopy done. Your low blood levels, and the fact that you are having night sweats, and a decreased appetite are concerning. Secondly, you had some fluid buildup on your lungs. I understand that you were taking Lasix at home without much relief. We have put you on a stronger dose via your IV, and you are looking and feeling much better. Please continue your Lasix dose at home. Finally, we talked about your high white blood cell count. I know that you for the past year, your primary care provider has been working on trying to figure this out. You received IV antibiotics here for a urinary tract infection. Yesterday evening, you had some new abdominal pain. I wanted to make sure we weren't missing a source of infection. We ordered a CT abdomen/pelvis and it did show some biliary dilatation, which means that the entrance to your gallbladder, where there is a bile duct, was larger than anticipated. We followed this with an abdominal ultrasound which confirmed this. Sometimes this means that there can be stones passing through here which can intermittently cause pain. There were no signs of cholecystitis or gallbladder infection, and your abdominal pain quickly resolved. We talked about how you may have to follow-up in the outpatient if this were to come back with a MRCP or ERCP, or even consider an elective gallbladder removal if it becomes too cumbersome. However, you feel great right now, and have no abdominal pain or nausea or vomiting. Nevertheless, for this high white count, I know that you have an appointment with the climatology professor on 04/11. Please make sure you attend this. Thank you for allowing us to take care of you. We are glad you're feeling better. Print Language: German Patient Instructions: Anemia Stand Alone Forms: PCP List Follow-up Care: Dyllan Baugh MD [Primary Care Provider, Internal Medicine] Nader Montano MD [Provider Admit Priv/Credential, Surgery, General] Vitals documented within 30 minutes of discharge?: Yes"
[2025-03-21] MEDS: POTASSIUM CHLORIDE 20 MEQ TABLET PO ONE (10:31)
--- NOTE | 2025-03-21 14:01 | PROVIDER PROGRESS NOTE ---
Subjective Subjective Subjective: Patient is feeling a little better today. Her chronic back pain is acting up. She still has some mild shortness of breath, worsened with activity. She has not had a bowel movement so no blood in her stool. Denies any fevers or chills.She is having some abdominal pain which is intermittent and new for her. She states at home, she has high-volume diarrhea at all times. This has been ongoing for the last few years. She has never had a colonoscopy in the past. Current Medications Current Medications Current Medications: Current Medications Generic Name Dose Route Start Last Admin Trade Name Freq PRN Reason Stop Dose Admin Acetaminophen 650 mg 03/19/25 11:43 03/20/25 20:56 Acetaminophen 325 Mg Tablet PO 650 mg Q4HR PRN Administration Pain or Fever > 38C (100.4F) Atorvastatin Calcium 80 mg 03/19/25 21:00 03/20/25 20:57 Atorvastatin 40 Mg Tablet PO 80 mg HS NELLY Administration Ceftriaxone Sodium 1 gm 03/19/25 09:00 03/21/25 08:23 Ceftriaxone 1 Gm Vial IVP 1 gm DAILY NELLY Administration Furosemide 40 mg 03/20/25 14:00 03/21/25 06:02 Furosemide 20 Mg/2 Ml Vial IVP 40 mg BIDDIURETIC NELLY Administration Gabapentin 200 mg 03/19/25 21:00 03/20/25 20:57 Gabapentin 100 Mg Capsule PO 200 mg QPM NELLY Administration Hydroxyzine Pamoate 25 mg 03/19/25 11:43 03/21/25 06:07 Hydroxyzine Pamoate 25 Mg Capsule PO 25 mg BID PRN Administration Anxiety Lidocaine 1 patch 03/18/25 17:51 03/19/25 09:08 Lidocaine Patch 4% TOP 1 patch DAILY PRN Administration PAIN 5-7 Morphine Sulfate 2 mg 03/19/25 11:44 03/20/25 22:42 Morphine 2 Mg/Ml Carpuject IVP 2 mg Q6HR PRN Administration Severe Pain (Level 7-10) Multivitamins 1 tab 03/20/25 08:00 03/21/25 08:23 Multivitamin Tablet PO Not Given DAILYWM NELLY Ondansetron HCl 4 mg 03/19/25 20:48 03/21/25 12:43 Ondansetron 4 Mg/2 Ml Vial IVP 4 mg Q4HR PRN Administration Nausea / Vomiting Oxycodone HCl 5 mg 03/18/25 17:53 03/21/25 08:59 Oxycodone 5 Mg Tablet PO 5 mg Q4HR PRN Administration Moderate Pain (Level 4-6) Pantoprazole Sodium 40 mg 03/20/25 16:00 03/21/25 06:02 Pantoprazole 40 Mg Tablet PO 40 mg BIDAC NELLY Administration Sodium Chloride 10 ml 03/18/25 14:11 03/19/25 19:13 Sodium Chloride Flush 0.9% 10 Ml Syringe IVP 10 ml PRN PRN Administration NEEDED PER PROVIDER ORDERS Sodium Chloride 10 ml 03/18/25 17:00 03/21/25 08:23 Sodium Chloride Flush 0.9% 10 Ml Syringe IVP 10 ml 0100,0900,1700 NELLY Administration Sterile Water 10 ml 03/19/25 09:00 03/21/25 08:23 Water For Injection,Sterile 10 Ml Vial MC 10 ml DAILY NELLY Administration Trazodone HCl 100 mg 03/19/25 20:02 03/19/25 20:28 Trazodone 50 Mg Tablet PO 100 mg QPM PRN Administration Insomnia Objective Vital Signs/Intake & Output Reviewed Vital Signs: Yes Vital Signs: Vital Signs x48h Temp Pulse Resp BP Pulse Ox 03/21/25 07:27 97.7 F 98 18 110/71 98 Intake & Output: Intake & Output 03/18/25 03/19/25 03/20/25 03/21/25 23:59 23:59 23:59 23:59 Intake Total 380 / 380 950 / 950 1140 / 1140 600 / 600 Output Total 470 / 470 700 / 700 1350 / 1350 1000 / 1000 Balance -90 / -90 250 / 250 -210 / -210 -400 / -400 Weight (kg) 64.5 kg Objective General Appearance: positive No acute distress, Alert, Mild distress and Other (Slightly tachypneic, even at rest) Eyes Bilateral: positive Normal inspection, PERRL and EOMI ENT: positive ENT inspection nml, Pharynx nml and No signs of dehydration Neck: positive Nml inspection, Thyroid nml and No JVD Respiratory: positive Chest non-tender, No respiratory distress and Other Cardiovascular: positive No murmur, No gallop and Irregularly irregular; negative Tachycardia or Systolic murmur Abdomen: positive Non-tender, No organomegaly and No distention; negative Guarding or Splenomegaly Back: positive Nml inspection; negative CVA tenderness (R) or CVA tenderness (L) Skin: positive Color nml, No rash, Warm and Dry Extremities: positive Non-tender, Full ROM, Nml appearance and Pedal edema (3+ to knee) Neurologic/Psychiatric: positive Oriented x3, Motor nml and Mood/affect nml Lab Results 03/21/25 09:10 03/21/25 09:10 Other Labs: Lab Results x24hrs 03/21/25 03/20/25 Range/Units 09:10 15:12 WBC 25.4 H 23.5 H (4.8-10.8) x10^3/uL RBC 3.01 L 3.10 L (4.20-5.40) 10^6/uL Hgb 8.1 L 8.1 L (12.0-16.0) g/dL Hct 28.2 L 29.0 L (37.0-47.0) % MCV 93.7 93.5 (81.0-99.0) fL MCH 26.9 L 26.1 L (27.0-31.0) pg MCHC 28.7 L 27.9 L (32.0-36.0) g/dL RDW 18.4 H 18.9 H (12.0-15.0) % Plt Count 259 246 (130-450) 10^3/uL MPV 10.5 10.8 (7.9-10.8) fL Sodium 135 (135-145) mmol/L Potassium 3.0 L (3.5-4.5) mmol/L Chloride 95 L (101-111) mmol/L Carbon Dioxide 32 (21-32) mmol/L Anion Gap 8.0 (6-13) BUN 20 (6-20) mg/dL Creatinine 1.0 (0.6-1.3) mg/dL Estimated GFR (MDRD) 53 L (>89) Glucose 162 H (74-104) mg/dL Calcium 8.7 (8.5-10.3) mg/dL Assessment/Plan Problem List (1) Acute upper gastrointestinal bleeding: Impression: Patient presents with a hemoglobin of 6.8. Improved to 8.5 after one unit of blood. Stable now around 8.1. Baseline is about 7.5. Also endorses dark stools at home for about 2 weeks. Stool guaiac is positive. Hemoblobin stable. No active GI bleeding. IV Protonix 40 mg twice daily switched to oral tabs. Hold home Eliquis. Start regular diet today. General Surgery consulted in case of need for EGD - spoke with Dr. Montano, will hold on consult/EGD today as hemoglobin has stabilized. (2) CHF (congestive heart failure): Impression: Patient with a history of congestive heart failure, with reduced EF, unknown ejection fraction. I have requested records from her blade sharpener, Dr. Hager, at [facility]. Pending. proBNP slightly elevated. Received a dose of IV Lasix. Continue diuresis today with IV Lasix 40 mg BID. Continue cardiac diet, daily intakes, strict ins and outs. Over the last few days, she has put out 700 cc of urine, then 1350, then 1000cc. Qualifiers: Heart failure chronicity: chronic Heart failure type: unspecified Q ualified Code(s): I50.9 - Heart failure, unspecified (3) Leukocytosis: Impression: Patient has leukocytosis of 27,000. Per her, this has been happening in the outpatient setting, and her PCP has referred her to corporate ethics officer for bone marrow biopsy and further evaluation. Blood cultures are ordered, pending. UA is positive for an infection. Continue Rocephin. Continue to trend. In case there is an infectious etiology for this leukocytosis has not been explored yet, CT abdomen/pelvis has been ordered. Patient has been having ongoing abdominal pain, as well as diarrhea. Qualifiers: Leukocytosis type: unspecified Qualified Code(s): D72.829 - Elevated white blood cell count, unspecified (4) Shortness of breath: Impression: Likely multifactorial secondary to congestive heart failure exacerbation as well as anemia. Treatment as above. (5) Anemia due to acute blood loss: Impression: Acute on chronic anemia with positive guaiac. Should receive complete outpatient workup including colonoscopy. Patient should also see hematology in the outpatient setting for further workup including bone marrow biopsy. Outpatient doctor has completed iron studiesvitamin B12 is within normal limits, folate is within normal limits. Iron levels were high in 2023 at 239, and when repeated in January 2025 or 44. TIBC is low, percent saturation is normal, and ferritin is normal as well. (6) Atrial fibrillation: Impression: Hold Eliquis at this time. Continue metoprolol. Qualifiers: Atrial fibrillation type: unspecified Qualified Code(s): I48.91 - Unspecified atrial fibrillation (7) Hyperlipidemia: Impression: Continue statin. Qualifiers: Hyperlipidemia type: unspecified Qualified Code(s): E78.5 - Hyperlipidemia, unspecified (8) HTN (hypertension): Impression: Hold antihypertensives in setting of active GI bleed. Qualifiers: Hypertension type: unspecified Qualified Code(s): I10 - Essential (primary) hypertension
--- NOTE | 2025-03-21 18:48 | CT Report ---
EXAM: CT Abdomen/Pelvis W DATE: 03/21/2025 12:20 PM PDT INDICATION: 84 years Female with abd pain/leukocytosis TECHNIQUE: Using MDCT technique, axial images were obtained through the abdomen and pelvis, from the bases of the lungs through the pubic symphysis, following the intravenous administration of contrast. Sagittal and coronal MPR reconstructions were performed. Scan was performed in compliance with NEMA XR 29-213 Dose Limiting Standard. In accordance with CT protocol optimization, one or more of the following dose reduction techniques were utilized for this exam: automated exposure control, adjustment of mA and/or KV based on patient size, or use of iterative reconstructive technique. PROTOCOL: Routine LIMITATION: None. CONTRAST: 80 cc Omnipaque 300 COMPARISON: 05/12/2023 FINDINGS: Lung bases and visualized mediastinum: Significant cardiomegaly. Small pericardial effusion. Bilateral geographic areas of groundglass density Liver: No significant focal lesion seen. Significant hepatomegaly measuring 20.5 cm. Spleen: Stable appearance of several small hypodense lesions, most likely benign. Splenomegaly measuring 15 cm Pancreas: No significant focal lesion seen. Gallbladder and bile ducts: Decompressed gallbladder at this time. There is persistent prominence of the CBD measuring 1 cm. There is mild to moderate intrahepatic biliary dilatation, also probably with some periportal edema. Adrenal glands: No significant focal lesion seen. Kidneys and ureters: No calculi, hydronephrosis, or suspicious focal lesions are seen. GI tract, mesentery, and peritoneum: No significant lesion seen. Upper abdomen and retroperitoneal spaces: No significant adenopathy or other mass seen. Vascular structures: Infrarenal abdominal aortic aneurysm measuring 3.6 x 3.1 cm, stable or slightly more prominent. Severe atherosclerotic disease. Urinary bladder: No significant focal lesion seen. Reproductive organs: The uterus and adnexal regions are unremarkable. Inguinal regions and abdominal wall: There is a right inguinal hernia measuring 2.6 x 2.3 cm. This contains a short segment of small bowel, without signs of complications. Osseous structures: No significant focal lesion seen. IMPRESSION: 1. Mild to moderate biliary dilatation, improved compared to prior study, with collapsed gallbladder at this time. No definite obstructing lesion seen. 2. Chronic findings as above, no acute intra-abdominal abnormality seen. 3. Cardiomegaly with probable mild alveolar pulmonary edema, also a small pericardial effusion. Reviewed by: Mike Sal MD on 03/21/2025 6:47 PM PDT Approved by: Mike Sal MD on 03/21/2025 6:47 PM PDT Station ID: [id number]
[2025-03-22 06:04] LABS: HCT - HEMATOCRIT 27.8 % (37.0-47.0); HGB - HEMOGLOBIN 7.8 g/dL (12.0-16.0); MEAN PLATELET VOLUME 10.3 fL (7.9-10.8); PLT - PLATELET COUNT 219.0 10^3/uL (130-450); RED CELL DISTRIBUTION WIDTH 18.1 % (12.0-15.0)
[2025-03-22 06:25] LABS: BUN - BLOOD UREA NITROGEN 20.0 mg/dL (6-20); CARBON DIOXIDE - CO2 33.0 mmol/L (21-32); CREATININE 0.9 mg/dL (0.6-1.3); GFR - MDRD 60.0 (>89)
[2025-03-22] MEDS: POTASSIUM CHLORIDE 20 MEQ TABLET PO ONE ×2 (12:15→12:21)
--- NOTE | 2025-03-22 12:15 | Ultrasound Report ---
PROCEDURE: US Abdomen Limited INDICATIONS: galbladder TECHNIQUE: Real-time focused scanning was performed of the abdomen, with image documentation. COMPARISONS: CT yesterday FINDINGS: Liver measures 18 cm. No focal lesion identified. Small perihepatic fluid seen superior to the liver. Gallbladder sludge. No sonographic Peoples's sign. Wall measures 2 mm, within normal limits. CBD is dilated at 14 mm. Bladder is distended Pancreas is unremarkable. Right kidney measures 11 cm. No solid lesion identified. IVC is patent. IMPRESSION: There is gallbladder sludge and distention. No sonographic Peoples's sign to suggest cholecystitis. CBD is dilated at 14 mm. MRCP is reasonable to further evaluate if clinically appropriate. Small volume perihepatic fluid. Reviewed by: Amilcar Jay MD on 03/22/2025 12:13 PM PDT Approved by: Amilcar Jay MD on 03/22/2025 12:13 PM PDT Station ID: [id number]
[2025-03-22 14:47] VITALS: BP 111/65; TEMP 97.9; O2SAT 96
== END 2025-03-22 14:15 | disposition home health service (06) | DRG 377 ==
LOC: ED 11:51 → MS3 13:54
PROVIDERS: ADMIT Internal Medicine; ATTEND Internal Medicine
DX: D64.9 Anemia, unspecified; I25.10 Atherosclerotic heart disease of native coronary artery without angina pectoris; K83.8 Other specified diseases of biliary tract; Z79.01 Long term (current) use of anticoagulants; N39.0 Urinary tract infection, site not specified; M25.552 Pain in left hip; D72.829 Elevated white blood cell count, unspecified; I50.9 Heart failure, unspecified; Z95.5 Presence of coronary angioplasty implant and graft; M54.9 Dorsalgia, unspecified; I50.23 Acute on chronic systolic (congestive) heart failure; D62 Acute posthemorrhagic anemia; I48.91 Unspecified atrial fibrillation; I11.0 Hypertensive heart disease with heart failure; E78.5 Hyperlipidemia, unspecified; K92.2 Gastrointestinal hemorrhage, unspecified; G89.29 Other chronic pain; T84.011A Broken internal left hip prosthesis, initial encounter; R00.0 Tachycardia, unspecified; F17.210 Nicotine dependence, cigarettes, uncomplicated

== ENCOUNTER 2025-05-18 23:15 | Inpatient (IN) ==
--- OUTSIDE RECORDS SUMMARY | 2025-05-18 23:29 | EXTERNAL MEDICAL SUMMARY RPT | Continuity of Care Document ---
Author Organization [place] Address [address] [address] Phone Problems date description facility 2025-03-10 20:09 Heart failure, unspecified [facility] 2025-03-12 11:27 Heart failure, unspecified [facility] 2025-03-13 09:36 Heart failure, unspecified [facility] 2025-03-13 09:36 [facility] 2025-03-14 14:02 Abscess of tendon sheath, right lower leg [facility] 2025-03-18 12:07 Abscess of tendon sheath, right lower leg [facility] 2025-03-18 13:55 Gastrointestinal hemorrhage, un specified [facility] 2025-03-18 14:43 Gastrointestinal hemorrhage, un [facility] 2025-03-19 08:35 Acute posthemorrhagic anemia [facility] 2025-03-19 08:35 Hyperlipidemia, unspecified [facility] 2025-03-19 08:35 Essential (primary) hypertensio n [facility] 2025-03-19 08:35 [facility] 2025-03-19 08:35 Heart failure, unspecified [facility] 2025-03-19 08:35 Gastrointestinal hemorrhage, un specified [facility] 2025-03-19 08:35 [facility]ness [facility] breath [facility] 2025-03-21 09:44 Acute posthemorrhagic anemia [facility] 2025-03-21 09:44 Elevated white blood cell count , unspecified [facility] 2025-03-21 09:44 Hyperlipidemia, unspecified i [facility] 2025-03-21 09:44 Essential (primary) hypertensio n [facility] 2025-03-21 09:44 Unspecified atrial fibrillation [facility] 2025-03-21 09:44 Heart failure, unspecified [facility] 2025-03-21 09:44 Gastrointestinal hemorrhage, un specified [facility] 2025-03-21 09:44 Shortness of breath [facility]25-03-21 12:05 [facility]orrhagic [facility] 2025-03-21 12:05 Elevated white blood cell count , unspecified [facility] 2025-03-21 12:05 Hyperlipidemia, unspecified i [facility] 2025-03-21 12:05 Essential (primary) [facility]ensio n [facility] 2025-03-21 12:05 Unspecified atrial fibrillation [facility] 2025-03-21 12:05 Heart failure, unspecified anthony [facility] 2025-03-21 12:05 Gastrointestinal hemorrhage, un specified [facility] 2025-03-21 12:05 Shortness of breath josefina [facility] 2025-03-21 12:06 Acute [facility]hemorrhagic anemia [facility] 2025-03-21 12:06 Elevated white blood cell count , unspecified [facility] 2025-03-21 12:06 Hyperlipidemia, unspecified [facility] 2025-03-21 12:06 Essential (primary) hypertensio n [facility] 2025-03-21 12:06 Unspecified atrial fibrillation [facility] 2025-03-21 12:06 Heart failure, unspecified anthony [facility] 2025-03-21 12:06 Gastrointestinal hemorrhage, un specified [facility] 2025-03-21 12:06 Shortness of breath [facility] 2025-03-22 12:48 Acute posthemorrhagic anemia [facility] 2025-03-22 12:48 Elevated white blood cell count , [facility] 2025-03-22 12:48 Hyperlipidemia, unspecified i [facility] 2025-03-22 12:48 Essential (primary) [facility]ensio n [facility] 2025-03-22 12:48 Unspecified atrial fibrillation [facility]25-03-[facility] 12:48 Heart failure, unspecified id [facility] 2025-03-22 12:48 Gastrointestinal hemorrhage, un specified [facility] 2025-03-22 12:48 Shortness of breath [facility] 2025-03-22 13:33 Acute posthemorrhagic anemia [facility] 2025-03-22 13:33 Elevated white blood cell count , unspecified [facility] 2025-03-22 13:33 Hyperlipidemia, unspecified i [facility] 2025-03-22 13:33 Essential (primary) hypertensio n [facility] 2025-03-22 13:33 Unspecified atrial fibrillation [facility] 2025-03-22 13:33 Heart failure, unspecified [facility] 2025-03-22 13:33 Gastrointestinal hemorrhage, un specified [facility] 2025-03-22 13:33 Shortness of breath anthonybeleno Friedmana [facility] 2025-03-22 14:47 Acute posthemorrhagic anemia [facility] 2025-03-22 14:47 Elevated white blood cell count , unspecified [facility] 2025-03-22 14:47 Hyperlipidemia, unspecified i [facility] 2025-03-22 14:47 Essential (primary) hypertensio n [facility] 2025-03-22 14:47 Unspecified atrial fibrillation [facility] 2025-03-22 14:47 Heart failure, unspecified id [facility] 2025-03-22 14:47 Gastrointestinal hemorrhage, un specified [facility] 2025-03-22 14:47 Shortness of breath josefina Friedmana [facility] 2025-04-11 11:58 Abscess of tendon sheath, right lower leg [facility] 2025-04-11 11:59 Abscess of tendon sheath, right lower leg [facility] 2025-04-11 12:00 Abscess of tendon sheath, right lower leg [facility] 2025-04-11 12:06 Abscess of tendon sheath, right lower leg [facility] 2025-04-11 13:02 Anemia, unspecified [facility] 2025-04-11 13:02 Elevated white blood cell count , unspecified [facility] 2025-04-11 13:02 Hepatomegaly with sp lenomegaly, not elsewhere [facility] 2025-04-12 00:05 Anemia, unspecified [facility] 2025-04-12 06:59 Anemia, unspecified [facility] 2025-04-12 06:59 Elevated white blood cell count , unspecified [facility] 2025-04-12 06:59 Hepatomegaly with sp lenomegaly, not elsewhere classified [facility] 2025-04-12 08:13 Anemia, unspecified [facility] 2025-04-12 08:56 Acute posthemorrhagic anemia [facility] 2025-04-12 08:56 Anemia, unspecified [facility] 2025-04-12 08:56 Elevated white blood cell count , unspecified [facility] 2025-04-12 08:56 Hyperlipidemia, unspecified i [facility] 2025-04-12 08:56 Other chronic pain [facility] 2025-04-12 08:56 Essential (primary) hypertensio n [facility] 2025-04-12 08:56 Unspecified atrial fibrillation [facility] 2025-04-12 08:56 Heart failure, unspecified [facility] 2025-04-12 08:56 Pneumonia, unspecified organism [facility] 2025-04-12 08:56 Gastrointestinal hemorrhage, un specified [facility] 2025-04-12 08:56 Pain in left knee [facility] 2025-04-12 08:56 Pain in left leg [facility] 2025-04-12 08:56 Shortness of breath [facility] 2025-04-12 08:56 Other specified symp toms and signs involving the circulatory and respiratory systems [facility] 2025-04-12 08:56 Hepatomegaly with sp lenomegaly, not elsewhere classified [facility] 2025-04-12 08:56 Other fecal abnormalities [facility] 2025-04-12 08:56 Weakness [facility] 2025-04-12 08:56 Other fatigue [facility] 2025-04-12 08:56 Laceration without f oreign body of right hand, initial encounter [facility] 2025-04-12 08:56 Unspecified injury of left hip, initial encounter [facility] 2025-04-12 08:57 Acute posthemorrhagic anemia [facility] 2025-04-12 08:57 Anemia, unspecified [facility] 2025-04-12 08:57 Elevated white blood cell count , unspecified [facility] 2025-04-12 08:57 Hyperlipidemia, unspecified i [facility] 2025-04-12 08:57 Other chronic pain [facility] 2025-04-12 08:57 Essential (primary) hypertensio n [facility] 2025-04-12 08:57 Unspecified atrial fibrillation [facility] 2025-04-12 08:57 Heart failure, unspecified [facility] 2025-04-12 08:57 Pneumonia, unspecified organism [facility] 2025-04-12 08:57 Gastrointestinal hemorrhage, un specified [facility] 2025-04-12 08:57 Pain in left knee [facility] 2025-04-12 08:57 Pain in left leg [facility] 2025-04-12 08:57 Shortness of breath [facility] 2025-04-12 08:57 Other specified symp toms and signs involving the circulatory and respiratory systems [facility] 2025-04-12 08:57 Hepatomegaly with sp lenomegaly, not elsewhere classified [facility] 2025-04-12 08:57 Other fecal abnormalities [facility] 2025-04-12 08:57 Weakness [facility] 2025-04-12 08:57 Other fatigue [facility] 2025-04-12 08:57 Laceration without f oreign body of right hand, initial encounter [facility] 2025-04-12 08:57 Unspecified injury of left hip, initial encounter [facility] 2025-04-16 13:26 Anemia, unspecified [facility] 2025-05-04 13:46 Anemia, unspecified [facility] 2025-05-05 00:01 Anemia, unspecified [facility] 2025-05-05 00:01 Elevated white blood cell count , unspecified [facility] 2025-05-05 00:01 Hepatomegaly with sp lenomegaly, not elsewhere [facility] 2025-05-08 16:17 Anemia, unspecified [facility] 2025-05-08 16:17 Elevated white blood cell count , unspecified [facility] 2025-05-08 16:17 Hepatomegaly with sp lenomegaly, not elsewhere classified [facility] 2025-05-17 07:48 Anemia, unspecified [facility] 2025-05-17 07:48 Elevated white blood cell count , unspecified [facility] 2025-05-17 08:23 Anemia, unspecified [facility] 2025-05-17 08:23 Elevated white blood cell count , unspecified [facility] 2025-05-18 00:03 Anemia, unspecified [facility] 2025-05-18 00:03 Elevated white blood cell count , unspecified [facility] 2025-05-18 10:58 Elevated white blood cell count , unspecified [facility] Results/Labs test date facility value unit notes Result panel 1 CIPROFLOXACIN 2025-02-15 11:12 [facility] >=4 (missing) (missing) LEVOFLOXACIN 2025-02-15 11:12 [facility] >=8 (missing) (missing) CEFEPIME 2025-02-15 11:12 [facility] <=0.12 (missing) (missing) ERTAPENEM 2025-02-15 11:12 [facility] <=0.12 (missing) (missing) CEFTRIAXONE 2025-02-15 11:12 [facility] <=0.25 (missing) (missing) IMIPENEM 2025-02-15 11:12 [facility] <=0.25 (missing) (missing) GENTAMICIN 2025-02-15 11:12 [facility] <=1 (missing) (missing) TOBRAMYCIN 2025-02-15 11:12 [facility] <=1 (missing) (missing) NITROFURANTOIN 2025-02-15 11:12 [facility] <=16 (missing) (missing) TRIMETHOPRIM/SULFA METHOXAZOLE 2025-02-15 11:12 [facility] <=20 (missing) (missing) CUL, URINE 2025-02-15 11:12 [facility] 100>100,000 CFU/mL (missing) (missing) CEFAZOLIN 2025-02-15 11:12 [facility] 16 (missing) (missing) AMPICILLIN 2025-02-15 11:12 [facility] 16 (missing) This organism is NEGATIVE for Extended Spectrum Beta Lactamase AMPICILLIN/SULBACT AM 2025-02-15 11:12 [facility] 4 (missing) (missing) O:ESCCOL 2025-02-15 11:12 [facility] ESCCOLESCHERICHIA COLIESCHERICHIA COLI (missing) (missing) CUL, URINE 2025-02-15 11:12 [facility] UCC.6COLONY COUNT (missing) (missing) Result panel 2 ABNORMAL LYMPHS % (MANUAL) 2025-03-10 17:28 [facility] 0 % (missing) BASOPHILS # (MANUAL) 2025-03-10 17:28 [facility] 0.0 10 3/ul (missing) EOSINOPHILS # (MANUAL) 2025-03-10 17:28 [facility] 0.0 10 3/ul (missing) MONOCYTES # (MANUAL) 2025-03-10 17:28 [facility] 0.0 10 3/ul (missing) LYMPHOCYTES # (MANUAL) 2025-03-10 17:28 [facility] 0.6 10 3/ul (missing) METAMYELOCYTES % (MANUAL) 2025-03-10 17:28 [facility] 1 % (missing) NUCLEATED RBC (MANUAL) 2025-03-10 17:28 [facility] 1 % (missing) RBC MORPHOLOGY (MULTIPLE) 2025-03-10 17:28 [facility] 1+ ANISOCYTOSIS (reji ng) (missing) PLATELET MORPHOLOGY 2025-03-10 17:28 [facility] 1+ LARGE PLATELETS (reji ng) (missing) RBC MORPHOLOGY (MULTIPLE) 2025-03-10 17:28 [facility] 1+ MICROCYTOSIS (reji ng) (missing) RBC MORPHOLOGY (MULTIPLE) 2025-03-10 17:28 [facility] 1+ POLYCHROMASIA (reji ng) (missing) CREATININE 2025-03-10 17:28 [facility] 1.1 mg/dl As of January 2023 testing method has changed, this may include reference ranges. BILIRUBIN,TOTAL 2025-03-10 17:28 [facility] 1.2 mg/dl As of January 2023 testing method has changed, this may include reference ranges. ALBUMIN/GLOBULIN RATIO 2025-03-10 17:28 [facility] 1.3 (reji ng) (missing) NEUTROPHILS # (MANUAL) 2025-03-10 17:28 [facility] 10.2 10 3/ul (missing) MEAN PLATELET VOLUME 2025-03-10 17:28 [facility] 10.8 fl (missing) TROPONIN I HIGH SENSITIVITY 2025-03-10 17: [facility] 10.8 ng/l A HIGH SENSITIVITY TROPONIN result of >= 14.9 ng/L for females is considered POSITIVE. A HIGH SENSITIVITY TROPONIN result of >= 19.8 ng/L for males is considered POSITIVE. A HIGH SENSITIVITY TROPONIN result of >= 17.9 ng/L for unspecified is considered POSITIVE. TOTAL CELLS COUNTED 2025-03-10 17: [facility] (reji ng) (missing) CHLORIDE 2025-03-10 17:28 [facility] 103 mmol/l As of January 2023 testing method has changed, this may include reference ranges. WHITE BLOOD COUNT 2025-03-10 17: [facility] 11.6 x10 3/ul (missing) ALKALINE PHOSPHATASE 2025-03-10 17:28 [facility] 119 iu/l As of January 2023 testing method has changed, this may include reference ranges. SODIUM 2025-03-10 17:28 [facility] 137 mmol/l (missing) BUN - BLOOD [facility] NITROGEN 2025-03-10 17:28 [facility] 17 mg/dl As of January 2023 testing method has changed, this may include reference ranges. RED CELL DISTRIBUTION WIDTH 2025-03-10 17:28 [facility] 17.2 % (missing) BAND NEUTROPHILS % (MANUAL) 2025-03-10 17:28 [facility] 2 % (missing) MYELOCYTES % (MANUAL) 2025-03-10 17:28 [facility] 2 % (missing) RBC MORPHOLOGY (MULTIPLE) 2025-03-10 17:28 [facility] 2+ BASO STIPPLING (critical access hospital) (missing) RBC MORPHOLOGY (MULTIPLE) 2025-03-10 17:28 [facility] 2+ HYPOCHROMASIA (critical access hospital) (missing) RED BLOOD COUNT 2025-03-10 17:28 [facility] 2.71 10 6/ul (missing) GLOBULIN 2025-03-10 17:28 [facility] 2.8 g/dl (missing) LIPASE 2025-03-10 17:28 [facility] 21 u/l As of January 2023 testing method has changed, this may include reference ranges. HCT - HEMATOCRIT 2025-03-10 17: [facility] 26.3 % (missing) MEAN CORPUSCULAR HEMOGLOBIN 2025-03-10 17: [facility] 26.9 pg (missing) CARBON DIOXIDE - CO2 2025-03-10 17: [facility] 27 mmol/l As of January 2023 testing method has changed, this may include reference ranges. MEAN CORPUSCULAR HGB CONC 2025-03-10 17:28 [facility] 27.8 g/dl (missing) ALT ALANINE AMINOTRANSFERASE 2025-03-10 17:28 [facility] 28 iu/l As of January 2023 testing method has changed, this may include reference ranges. ALBUMIN 2025-03-10 17: [facility] 3.5 g/dl As of January 2023 testing method has changed, this may include reference ranges. POTASSIUM 2025-03-10 17:28 [facility] 3.8 mmol/l As of January 2023 testing method has changed, this may include reference ranges. PLT - PLATELET COUNT 2025-03-10 17:28 [facility] 337 10 3/ul (missing) PROMYELOCYTES % (MANUAL) 2025-03-10 17:28 [facility] 4 % (missing) GFR - MDRD 2025-03-10 17:28 [facility] 47 (critical access hospital) The IDMS-traceable MDRD Study Equation has been validated extensively in and populations between the ages of 18 and 70 with impaired kidney function (eGFR < 60 mL/min/1.73m2) and has shown good performance for patients with all common causes of kidney disease. Although this equation has not been validated for patients older than 70, an MDRD-derived eGFR may still be a useful tool for providers caring for patients older than 70. References: http://www.nkde p.nih.gov/lab-e valuation/gfr/c reatinine-stand ardization, last updated September 2011. AST ASPARTATE AMINOTRANSFERASE 2025-03-10 17:28 [facility] 49 iu/l As of January 2023 testing method has changed, this may include reference ranges. BNP - B-NATRIURETIC PEPTIDE 2025-03-10 17:28 [facility] 563 pg/ml (missing) TOTAL PROTEIN 2025-03-10 17:28 [facility] 6.3 g/dl As of January 2023 testing method has changed, this may include reference ranges. ANION GAP 2025-03-10 17:28 [facility] 7.0 (reji ng) (missing) HGB - HEMOGLOBIN 2025-03-10 17:28 [facility] 7.3 g/dl (missing) CALCIUM 2025-03-10 17:28 [facility] 8.7 mg/dl As of January 2023 testing method has changed, this may include reference ranges. GLUCOSE 2025-03-10 17:28 [facility] 83 mg/dl As of January 2023 testing method has changed, this may include reference ranges. MEAN CORPUSCULAR VOLUME 2025-03-10 17:28 [facility] 97.0 fl (missing) SLIDE REVIEW? 2025-03-10 17:28 [facility] Indicated (reji ng) (missing) SLIDE SENT FOR PATH REVIEW? 2025-03-10 17:28 [facility] Indicated (reji ng) (missing) DIFFERENTIAL COMMENT 2025-03-10 17:28 [facility] MANUAL DIFFERENTIAL (reji ng) (missing) PLATELET ESTIMATE, MANUAL 2025-03-10 17:28 [facility] NORMAL (130-450,000) (reji ng) (missing) Result panel 3 PATHOLOGIST SLIDE COMMENTS 2025-03-10 18:14 [facility] SEE SEPARATE REPORT (missing) 03/10/25 [id number] [facility] Report faxed to the ordering physician and scanned to the patient's EMR. Pathologist Slide Review Performed At: [facility], [facility] [address], [address] [place] [address] CLIA# [id number] Result panel 4 ABNORMAL LYMPHS % (MANUAL) 2025-03-18 12:49 [facility] 0 % (missing) BASOPHILS # (MANUAL) 2025-03-18 12:49 [facility] 0.0 10 3/ul (missing) EOSINOPHILS # (MANUAL) 2025-03-18 12:49 [facility] 0.0 10 3/ul (missing) MONOCYTES # (MANUAL) 2025-03-18 12:49 [facility] 0.0 10 3/ul (missing) CREATININE 2025-03-18 12:49 [facility] 0.8 mg/dl As of January 2023 testing method has changed, this may include reference ranges. BAND NEUTROPHILS % (MANUAL) 2025-03-18 12:49 [facility] 1 % (missing) RBC MORPHOLOGY (MULTIPLE) 2025-03-18 12:49 [facility] 1+ MACROCYTOSIS (reji ng) (missing) RBC MORPHOLOGY (MULTIPLE) 2025-03-18 12:49 [facility] 1+ OVALOCYTES (reji ng) (missing) RBC MORPHOLOGY (MULTIPLE) 2025-03-18 12:49 [facility] 1+ POLYCHROMASIA (reji ng) (missing) RBC MORPHOLOGY (MULTIPLE) 2025-03-18 12:49 [facility] 1+ TEARDROP CELLS (reji ng) (missing) ALBUMIN/GLOBULIN RATIO 2025-03-18 12:49 [facility] 1.2 (reji ng) (missing) BILIRUBIN,TOTAL 2025-03-18 12:49 [facility] 1.3 mg/dl As of January 2023 testing method has changed, this may include reference ranges. MEAN PLATELET VOLUME 2025-03-18 12:49 [facility] 10.3 fl (missing) TOTAL CELLS COUNTED 2025-03-18 12:49 [facility] 100 (reji ng) (missing) CHLORIDE 2025-03-18 12:49 [facility] 102 mmol/l As of January 2023 testing method has changed, this may include reference ranges. ALKALINE PHOSPHATASE 2025-03-18 12:49 [facility] 105 iu/l As of January 2023 testing method has changed, this may include reference ranges. GLUCOSE 2025-03-18 12:49 [facility] 106 mg/[facility] As of January 2023 testing method has changed, this may include reference ranges. NUCLEATED RBC (MANUAL) 2025-03-18 12:49 [facility] 12 % (missing) MYELOCYTES % (MANUAL) 2025-03-18 12:49 [facility] 13 % (missing) SODIUM 2025-03-18 12:49 [facility] 140 mmol/l (missing) NEUTROPHILS # (MANUAL) 2025-03-18 12:49 [facility] 15.1 10 3/ul (missing) RED CELL DISTRIBUTION WIDTH 2025-03-18 12:49 [facility] 18.1 % (missing) BUN - BLOOD UREA NITROGEN 2025-03-18 12:49 [facility] 19 mg/dl As of January 2023 testing method has changed, this may include reference ranges. REACTIVE LYMPHS % (MANUAL) 2025-03-18 12:49 [facility] 2 % (missing) RBC MORPHOLOGY (MULTIPLE) 2025-03-18 12:49 [facility] 2+ HYPOCHROMASIA (reji ng) (missing) RBC MORPHOLOGY (MULTIPLE) 2025-03-18 12:49 [facility] 2+ MICROCYTOSIS (reji ng) (missing) MAGNESIUM 2025-03-18 12:49 [facility] 2.0 mg/dl As of January 2023 testing method has changed, this may include reference ranges. RED BLOOD COUNT 2025-03-18 12:49 [facility] 2.55 10 6/ul (missing) GLOBULIN 2025-03-18 12:49 [facility] 2.8 g/dl (missing) WHITE BLOOD COUNT 2025-03-18 12:49 [facility] 21.0 x10 3/ul (missing) HCT - HEMATOCRIT 2025-03-18 12:49 [facility] 24.7 % (missing) ALT ALANINE AMINOTRANSFERASE 2025-03-18 12:49 [facility] 26 iu/l As of January 2023 testing method has changed, this may include reference ranges. MEAN CORPUSCULAR HEMOGLOBIN 2025-03-18 12:49 [facility] 26.7 pg (missing) MEAN CORPUSCULAR HGB CONC 2025-03-18 12:49 [facility] 27.5 g/dl (missing) LYMPHOCYTES # (MANUAL) 2025-03-18 12:49 [facility] 3.2 10 3/ul (missing) ALBUMIN 2025-03-18 12:49 [facility] 3.3 g/dl As of January 2023 testing method has changed, this may include reference ranges. POTASSIUM 2025-03-18 12:49 [facility] 3.5 mmol/l As of January 2023 testing method has changed, this may include reference ranges. PLT - PLATELET COUNT 2025-03-18 12:49 [facility] 328 10 3/ul (missing) CARBON DIOXIDE - CO2 2025-03-18 12:49 [facility] 33 mmol/l As of January 2023 testing method has changed, this may include reference ranges. AST ASPARTATE AMINOTRANSFERASE 2025-03-18 12:49 [facility] 39 iu/l As of January 2023 testing method has changed, this may include reference ranges. BNP - B-NATRIURETIC PEPTIDE 2025-03-18 12:49 [facility] 482 pg/ml (missing) ANION GAP 2025-03-18 12:49 [facility] 5.0 (reji ng) (missing) TOTAL PROTEIN 2025-03-18 12:49 [facility] 6.1 g/dl As of January 2023 testing method has changed, this may include reference ranges. HGB - HEMOGLOBIN 2025-03-18 12:49 [facility] 6.8 g/dl Called to JORDYN Fong/SUJATHA/ED by Burt Echevarria M.T.([facility]) at 1300 03/18/25. Read back(Y/N)? Y GFR - MDRD 2025-03-18 12:49 [facility] 68 (reji ng) The IDMS-traceable MDRD Study Equation has been validated extensively in and populations between the ages of 18 and 70 with impaired kidney function (eGFR < 60 mL/min/1.73m2) and has shown good performance for patients with all common causes of kidney disease. Although this equation has not been validated for patients older than 70, an MDRD-derived eGFR may still be a useful tool for providers caring for patients older than 70. References: http://www.nkde p.nih.gov/lab-e valuation/gfr/c reatinine-stand ardization, last updated September 2011. CALCIUM 2025-03-18 12:49 [facility] 9.2 mg/dl As of January 2023 testing method has changed, this may include reference ranges. MEAN CORPUSCULAR VOLUME 2025-03-18 12:49 [facility] 96.9 fl (missing) DIFFERENTIAL COMMENT 2025-03-18 12:49 [facility] MANUAL DIFFERENTIAL (reji ng) (missing) Result panel 5 OCCULT BLOOD IN PAT. SINGLE 2025-03-18 13:05 [facility] 1ONE (missing) (missin g) OCCULT BLOOD IN PAT. SINGLE 2025-03-18 13:05 [facility] NEGREFERENCE RANGE: NEGATIVE (missing) (missing) OCCULT BLOOD IN PAT. SINGLE 2025-03-18 13:05 [facility] NO.CARDSNUMBER OF CARDS (missing) (missing) OCCULT BLOOD IN PAT. SINGLE 2025-03-18 13:05 [facility] OCCULTOCCULT BLOOD (missing) (missing) OCCULT BLOOD IN PAT. SINGLE 2025-03-18 13:05 [facility] PPOSITIVE (missing) (missin g) OCCULT BLOOD IN PAT. SINGLE 2025-03-18 13:05 [facility] RR.NEGRR.NEG (missing) (missin g) Result panel 6 BNP - B-NATRIURETIC PEPTIDE 2025-03-18 15:30 [facility] 403 pg/ml (missing) Result panel 7 RBC,URINE 2025-03-18 19:20 [facility] 0-5 /hpf (missing) UROBILINOGEN,URI NE 2025-03-18 19:20 [facility] 0.2 (NORMAL) e.u./dl (missing) SPECIFIC GRAVITY,URINE 2025-03-18 19:20 [facility] 1.015 (missing) (missing) WBC,URINE 2025-03-18 19:20 [facility] 6-10 /hpf (missing) PH,URINE 2025-03-18 19:20 [facility] 6.0 ph (missing) CLARITY,URINE 2025-03-18 19:20 [facility] HAZY (missing) (missing) SQUAMOUS EPITHELIAL CELL,UR 2025-03-18 19:20 [facility] MOD Squamous (missing) (missing) BACTERIA,URINE 2025-03-18 19:20 [facility] Moderate /hpf (missing) NITRITE,URINE 2025-03-18 19:20 [facility] NEGATIVE (missing) (missing) OCCULT BLOOD,URINE 2025-03-18 19:20 [facility] NEGATIVE (missing) (missing) BILIRUBIN,URINE 2025-03-18 19:20 [facility] NEGATIVE (missing) Bilirubin can be influenced by color interference. Please correlate positive results with clinical presentation GLUCOSE, URINE (UA) 2025-03-18 19:20 [facility] NEGATIVE mg/dl (missing) KETONES,URINE (UA) 2025-03-18 19:20 [facility] NEGATIVE mg/dl (missing) PROTEIN,URINE 2025-03-18 19:20 [facility] NEGATIVE mg/dl (missing) LEUKOCYTE ESTERASE, URINE 2025-03-18 19:20 [facility] TRACE (missing) (missing) COLOR,URINE 2025-03-18 19:20 [facility] YELLOW (missing) (missing) Result panel 8 UROBILINOGEN,URINE 2025-03-18 21:52 [facility] 0.2 (NORMAL) e.u./dl (missing) SPECIFIC GRAVITY,URINE 2025-03-18 21:52 [facility] 1.020 (missing) (missing) WBC,URINE 2025-03-18 21:52 [facility] 11-25 /hpf (missing) PH,URINE 2025-03-18 21:52 [facility] 5.0 ph (missing) CUL, URINE 2025-03-18 21:52 [facility] CXPCULTURE IN PROGRESS. RESULTS TO FOLLOW. (missing) (missing) SQUAMOUS EPITHELIAL CELL,UR 2025-03-18 21:52 [facility] FEW Squamous (missing) (missing) CLARITY,URINE 2025-03-18 21:52 [facility] HAZY (missing) (missing) UR CULTURE IF IND 2025-03-18 21:52 [facility] INDICATED (missing) (missing) LEUKOCYTE ESTERASE, URINE 2025-03-18 21:52 [facility] MODERATE (missing) (missing) BACTERIA,URINE 2025-03-18 21:52 [facility] Moderate /hpf (missing) NITRITE,URINE 2025-03-18 21:52 [facility] NEGATIVE (missing) (missing) OCCULT BLOOD,URINE 2025-03-18 21:52 [facility] NEGATIVE (missing) (missing) BILIRUBIN,URINE 2025-03-18 21:52 [facility] NEGATIVE (missing) Bilirubin can be influenced by color interference. Please correlate positive results with clinical presentation GLUCOSE, URINE (UA) 2025-03-18 21:52 [facility] NEGATIVE mg/dl (missing) KETONES,URINE (UA) 2025-03-18 21:52 [facility] NEGATIVE mg/dl (missing) CUL, URINE 2025-03-18 21:52 [facility] NGNo growth (missing) (missing) RBC,URINE 2025-03-18 21:52 [facility] None Seen /hpf (missing) PROTEIN,URINE 2025-03-18 21:52 [facility] TRACE mg/dl (missing) COLOR,URINE 2025-03-18 21:52 [facility] YELLOW (missing) URINE CLEAN CATCH Result panel 9 HCT - HEMATOCRIT 2025-03-18 22:02 [facility] 29.3 % (missing) HGB - HEMOGLOBIN 2025-03-18 22:02 [facility] 8.5 g /dl (missing) Result panel 10 HCT - HEMATOCRIT 2025-03-19 04:19 [facility] 28.0 % (missing) HGB - HEMOGLOBIN 2025-03-19 04:19 [facility] 8.1 g /dl (missing) Result panel 11 CREATININE 2025-03-19 08:20 [facility] 0.9 mg/dl As of January 2023 testing method has changed, this may include reference ranges. MEAN PLATELET VOLUME 2025-03-19 08:20 [facility] 10.1 fl (missing) CHLORIDE 2025-03-19 08:20 [facility] 100 mmol/l As of January 2023 testing method has changed, this may include reference ranges. GLUCOSE 2025-03-19 08:20 [facility] 122 mg/dl As of January 2023 testing method has changed, this may include reference ranges. SODIUM 2025-03-19 08:20 [facility] 139 mmol/l (missing) BUN - BLOOD UREA NITROGEN 2025-03-19 08:20 [facility] 17 mg/dl As of Jan testing method has changed, this may include reference ranges. RED CELL DISTRIBUTION WIDTH 2025-03-19 08:20 [facility] 19.0 % (mi ssing) MEAN CORPUSCULAR HEMOGLOBIN 2025-03-19 08:20 [facility] 26.5 pg (missing) WHITE BLOOD COUNT 2025-03-19 08:20 [facility] 27.2 x10 3/ul (missing) MEAN CORPUSCULAR HGB CONC 2025-03-19 08:20 [facility] 28.7 g/dl (missing) HCT - HEMATOCRIT 2025-03-19 08:20 [facility] 29.6 % (missing) PLT - PLATELET COUNT 2025-03-19 08:20 [facility] 293 10 3/ul (missing) RED BLOOD COUNT 2025-03-19 08:20 [facility] 3.21 10 6/ul (missing) CARBON DIOXIDE - CO2 2025-03-19 08:20 [facility] 31 mmol/l As of January 2023 testing method has changed, this may include reference ranges. POTASSIUM 2025-03-19 08:20 [facility] 4.1 mmol/l As of January 2023 testing method has changed, this may include reference ranges. GFR - MDRD 2025-03-19 08:20 [facility] 60 (missin g) The IDMS-traceable MDRD Study Equation has been validated extensively in and populations between the ages of 18 and 70 with impaired kidney function (eGFR < 60 mL/min/1.73m2) and has shown good performance for patients with all common causes of kidney disease. Although this equation has not been validated for patients older than 70, an MDRD-derived eGFR may still be a useful tool for providers caring for patients older than 70. References: http://www.nkdep.n ih.gov/lab-evaluat ion/gfr/creatinine -stand ardization, last updated September 2011. ANION GAP 2025-03-19 08:20 [facility] 8.0 (missing ) (missing) HGB - HEMOGLOBIN 2025-03-19 08:20 [facility] 8.5 g /dl (missing) CALCIUM 2025-03-19 08:20 [facility] 9.3 mg/dl As of January 2023 testing method has changed, this may include reference ranges. MEAN CORPUSCULAR VOLUME 2025-03-19 08:20 [facility] 92.2 fl (missing) Result panel 12 CULTURE, BLOOD #1 2025-03-19 12:25 [facility] NG1D NO GROWTH AFTER 1 DAY (missing) (missing) CULTURE, BLOOD #1 2025-03-19 12:25 [facility] NG2D NO GROWTH AFTER 2 DAYS (missing) (missing) CULTURE, BLOOD #1 2025-03-19 12:25 [facility] NG5D NO GROWTH AFTER 5 DAYS (missing) (missing) Result panel 13 CULTURE, BLOOD #2 2025-03-19 12:31 [facility] NG1D NO GROWTH AFTER 1 DAY (missing) (missing) CULTURE, BLOOD #2 2025-03-19 12:31 [facility] NG2D NO GROWTH AFTER 2 DAYS (missing) (missing) CULTURE, BLOOD #2 2025-03-19 12:31 [facility] NG5D NO GROWTH AFTER 5 DAYS (missing) (missing) Result panel 14 CREATININE 2025-03-20 04:12 [facility] 0.8 mg/dl As of January 2023 testing method has changed, this may include reference ranges. MEAN PLATELET VOLUME 2025-03-20 04:12 [facility] 10.1 fl (missing) CHLORIDE 2025-03-20 04:12 [facility] 101 mmol/l As of January 2023 testing method has changed, this may include reference ranges. GLUCOSE 2025-03-20 04:12 [facility] 117 mg/dl As of January 2023 testing method has changed, this may include reference ranges. SODIUM 2025-03-20 04:12 [facility] 139 mmol/l (missing) BUN - BLOOD UREA NITROGEN 2025-03-20 04:12 [facility] 17 mg/dl As of Jan testing method has changed, this may include reference ranges. RED CELL DISTRIBUTION WIDTH 2025-03-20 04:12 [facility] 19.0 % (mi ssing) MAGNESIUM 2025-03-20 04:12 [facility] 2.1 mg/dl As of January 2023 testing method has changed, this may include reference ranges. RED BLOOD COUNT 2025-03-20 04:12 [facility] 2.84 10 6/ul (missing) WHITE BLOOD COUNT 2025-03-20 04:12 [facility] 20.0 x10 3/ul (missing) PLT - PLATELET COUNT 2025-03-20 04:12 [facility] 230 10 3/ul (missing) HCT - HEMATOCRIT 2025-03-20 04:12 [facility] 26.6 % (missing) MEAN CORPUSCULAR HEMOGLOBIN 2025-03-20 04:12 [facility] 26.8 pg (missing) MEAN CORPUSCULAR HGB CONC 2025-03-20 04:12 [facility] 28.6 g/dl (missing) CARBON DIOXIDE - CO2 2025-03-20 04:12 [facility] 32 mmol/l As of January 2023 testing method has changed, this may include reference ranges. POTASSIUM 2025-03-20 04:12 [facility] 4.0 mmol/l As of January 2023 testing method has changed, this may include reference ranges. ANION GAP 2025-03-20 04:12 [facility] 6.0 (missing ) (missing) GFR - MDRD 2025-03-20 04:12 [facility] 68 (missin g) The IDNM-traceable MDRD Study Equation has been validated extensively in and populations between the ages of 18 and 70 with impaired kidney function (eGFR < 60 mL/min/1.73m2) and has shown good performance for patients with all common causes of kidney disease. Although this equation has not been validated for patients older than 70, an MDRD-derived eGFR may still be a useful tool for providers caring for patients older than 70. References: http://www.nkdep.n ih.gov/lab-evaluat ion/gfr/creatinine -stand ardization, last updated September 2011. HGB - HEMOGLOBIN 2025-03-20 04:12 [facility] 7.6 g /dl (missing) CALCIUM 2025-03-20 04:12 [facility] 8.7 mg/dl As of January 2023 testing method has changed, this may include reference ranges. MEAN CORPUSCULAR VOLUME 2025-03-20 04:12 [facility] 93.7 fl (missing) Result panel 15 MEAN PLATELET VOLUME 2025-03-20 15:12 [facility] 10.8 fl (missing) RED CELL DISTRIBUTION WIDTH 2025-03-20 15:12 [facility] 18.9 % (missing) WHITE BLOOD COUNT 2025-03-20 15:12 [facility] 23.5 x10 3/ul (missing) PLT - PLATELET COUNT 2025-03-20 15:12 [facility] 246 10 3/ul (missing) MEAN CORPUSCULAR HEMOGLOBIN 2025-03-20 15:12 [facility] 26.1 pg (missing) MEAN CORPUSCULAR HGB CONC 2025-03-20 15:12 [facility] 27 .9 g/dl (missing) HCT - HEMATOCRIT 2025-03-20 15:12 [facility] 29.0 % (missing) RED BLOOD COUNT 2025-03-20 15:12 [facility] 3.10 10 6/ul (missing) HGB - HEMOGLOBIN 2025-03-20 15:12 [facility] 8.1 g /dl (missing) MEAN CORPUSCULAR VOLUME 2025-03-20 15:12 [facility] 93.5 fl (missing) Result panel 16 CREATININE 2025-03-21 09:10 [facility] 1.0 mg/dl As of January 2023 testing method has changed, this may include reference ranges. MEAN PLATELET VOLUME 2025-03-21 09:10 [facility] 10.5 fl (missing) SODIUM 2025-03-21 09:10 [facility] 135 mmol/l (missing) GLUCOSE 2025-03-21 09:10 [facility] 162 mg/dl As of January 2023 testing method has changed, this may include reference ranges. RED CELL DISTRIBUTION WIDTH 2025-03-21 09:10 [facility] 18.4 % (mi ssing) BUN - BLOOD UREA NITROGEN 2025-03-21 09:10 [facility] 20 mg/dl As of Jan testing method has changed, this may include reference ranges. WHITE BLOOD COUNT 2025-03-21 09:10 [facility] 25.4 x10 3/ul (missing) PLT - PLATELET COUNT 2025-03-21 09:10 [facility] 259 10 3/ul (missing) MEAN CORPUSCULAR HEMOGLOBIN 2025-03-21 09:10 [facility] 26.9 pg (missing) HCT - HEMATOCRIT 2025-03-21 09:10 [facility] 28.2 % (missing) MEAN CORPUSCULAR HGB CONC 2025-03-21 09:10 [facility] 28.7 g/dl (missing) POTASSIUM 2025-03-21 09:10 [facility] 3.0 mmol/l As of January 2023 testing method has changed, this may include reference ranges. RED BLOOD COUNT 2025-03-21 09:10 [facility] 3.01 10 6/ul (missing) CARBON DIOXIDE - CO2 2025-03-21 09:10 [facility] 32 mmol/l As of January 2023 testing method has changed, this may include reference ranges. GFR - MDRD 2025-03-21 09:10 [facility] 53 (missin g) The IDMS-traceable MDRD Study Equation has been validated extensively in and populations between the ages of 18 and 70 with impaired kidney function (eGFR < 60 mL/min/1.73m2) and has shown good performance for patients with all common causes of kidney disease. Although this equation has not been validated for patients older than 70, an MDRD-derived eGFR may still be a useful tool for providers caring for patients older than 70. References: http://www.nkdep.n ih.gov/lab-evaluat ion/gfr/creatinine -stand ardization, last updated September 2011. ANION GAP 2025-03-21 09:10 [facility] 8.0 (missing ) (missing) HGB - HEMOGLOBIN 2025-03-21 09:10 [facility] 8.1 g /dl (missing) CALCIUM 2025-03-21 09:10 [facility] 8.7 mg/dl As of January 2023 testing method has changed, this may include reference ranges. MEAN CORPUSCULAR VOLUME 2025-03-21 09:10 [facility] 93.7 fl (missing) CHLORIDE 2025-03-21 09:10 [facility] 95 mmol/l As of January 2023 testing method has changed, this may include reference ranges. Result panel 17 TROPONIN I HIGH SENSITIVITY 2025-03-21 18:48 [facility] 11.4 ng/l A HIGH SE NSITIVITY TROPONIN result of >= 14.9 ng/L for females is considered POSITIVE. A HIGH SENSITIVITY TROPONIN result of >= 19.8 ng/L for males is considered POSITIVE. A HIGH SENSITIVITY TROPONIN result of >= 17.9 ng/L for unspecified is considered POSITIVE. Result panel 18 CREATININE 2025-03-22 05:39 [facility] 0.9 mg/dl As of January 2023 testing method has changed, this may include reference ranges. MEAN PLATELET VOLUME 2025-03-22 05:39 [facility] 10.3 fl (missing) SODIUM 2025-03-22 05:39 [facility] 137 mmol/l (missing) WHITE BLOOD COUNT 2025-03-22 05:39 [facility] 15.8 x10 3/ul (missing) RED CELL DISTRIBUTION WIDTH 2025-03-22 05:39 [facility] 18.1 % (mi ssing) MAGNESIUM 2025-03-22 05:39 [facility] 2.0 mg/dl As of January 2023 testing method has changed, this may include reference ranges. RED BLOOD COUNT 2025-03-22 05:39 [facility] 2.95 10 6/ul (missing) BUN - BLOOD UREA NITROGEN 2025-03-22 05:39 [facility] 20 mg/dl As of Jan testing method has changed, this may include reference ranges. PLT - PLATELET COUNT 2025-03-22 05:39 [facility] 219 10 3/ul (missing) MEAN CORPUSCULAR HEMOGLOBIN 2025-03-22 05:39 [facility] 26.4 pg (missing) HCT - HEMATOCRIT 2025-03-22 05:39 [facility] 27.8 % (missing) MEAN CORPUSCULAR HGB CONC 2025-03-22 05:39 [facility] 28.1 g/dl (missing) POTASSIUM 2025-03-22 05:39 [facility] 3.3 mmol/l As of January 2023 testing method has changed, this may include reference ranges. CARBON DIOXIDE - CO2 2025-03-22 05:39 [facility] 33 mmol/l As of January 2023 testing method has changed, this may include reference ranges. ANION GAP 2025-03-22 05:39 [facility] 5.0 (missing ) (missing) GFR - MDRD 2025-03-22 05:39 [facility] 60 (in g) The IDMS-traceable MDRD Study Equation has been validated extensively in and populations between the ages of 18 and 70 with impaired kidney function (eGFR < 60 mL/min/1.73m2) and has shown good performance for patients with all common causes of kidney disease. Although this equation has not been validated for patients older than 70, an MDRD-derived eGFR may still be a useful tool for providers caring for patients older than 70. References: http://www.nkdep.n ih.gov/lab-evaluat ion/gfr/creatinine -stand ardization, last updated September 2011. HGB - HEMOGLOBIN 2025-03-22 05:39 [facility] 7.8 g /dl (missing) CALCIUM 2025-03-22 05:39 [facility] 8.6 mg/dl As of January 2023 testing method has changed, this may include reference ranges. GLUCOSE 2025-03-22 05:39 [facility] 93 mg/dl As of January 2023 testing method has changed, this may include reference ranges. MEAN CORPUSCULAR VOLUME 2025-03-22 05:39 [facility] 94.2 fl (missing) CHLORIDE 2025-03-22 05:39 [facility] 99 mmol/l As of January 2023 testing method has changed, this may include reference ranges. Result panel 19 FOLATE RBC 2025-04-11 13:16 [facility] >2006 ng/ml Performed at: [facility] [address], [place], [place] [id number] Pill Coater: Teresa Simon MD, Phone: [phone] Performed at: [facility] [address], [place], [place] [id number] Pill Coater: Tee Ibrahim MD, Phone: [phone] FOLATE HEMOLYSATE 2025-04-11 13:16 [facility] >620.0 ng/ml (missing) ABNORMAL LYMPHS % (MANUAL) 2025-04-11 13:16 [facility] 0 % (missing) BASOPHILS # (MANUAL) 2025-04-11 13:16 [facility] 0.1 10 3/ul (missing) EOSINOPHILS # (MANUAL) 2025-04-11 13:16 [facility] 0.1 10 3/ul (missing) BASOPHILS # (AUTO) 2025-04-11 13:16 [facility] 0.1 10 3/ul (missing) EOSINOPHILS # (AUTO) 2025-04-11 13:16 [facility] 0.1 10 3/ul (missing) MONOCYTES # (MANUAL) 2025-04-11 13:16 [facility] 0.2 10 3/ul (missing) [id number] 2025-04-11 13:16 [facility] 0.4 g/dl (missing) [id number] 2025-04-11 13:16 [facility] 0.6 g/dl (missing) MONOCYTES # (AUTO) 2025-04-11 13:16 [facility] 0.7 10 3/ul (missing) CRP - C-REACTIVE PROTEIN 2025-04-11 13:16 [facility] 0.7 mg/dl As of January 2023 testing method has changed, this may include reference ranges. BILIRUBIN,TOTAL 2025-04-11 13:16 [facility] 0.8 mg/dl As of January 2023 testing method has changed, this may include reference ranges. BETA GLOBULIN 2025-04-11 13:16 [facility] 0.9 g/dl (missing) NRBC ABSOLUTE COUNT (AUTO) 2025-04-11 13:16 [facility] 0.98 x10 3/ul (missing) A/G RATIO 2025-04-11 13:16 [facility] 1.0 (missing ) (missing) CREATININE 2025-04-11 13:16 [facility] 1.0 mg/dl As of January 2023 testing method has changed, this may include reference ranges. KAPPA/LAMBDA RATIO SERUM 2025-04-11 13:16 [facility] 1.19 (missing ) Performed at: [facility] [address], [place], [place] [id number] Pill Coater: Teresa Simon MD, Phone: [phone] LYMPHOCYTES # (AUTO) 2025-04-11 13:16 [facility] 1.2 10 3/ul (missing) GAMMA GLOBULIN 2025-04-11 13:16 [facility] 1.2 g/dl (missing) ALBUMIN/GLOBULIN RATIO 2025-04-11 13:16 [facility] 1.4 (missing ) (missing) LYMPHOCYTES # (MANUAL) 2025-04-11 13:16 [facility] 1.9 10 3/ul (missing) MEAN PLATELET VOLUME 2025-04-11 13:16 [facility] 10.2 fl (missing) TOTAL CELLS COUNTED 2025-04-11 13:16 [facility] 100 (missing ) (missing) ALKALINE PHOSPHATASE 2025-04-11 13:16 [facility] 101 iu/l As of January 2023 testing method has changed, this may include reference ranges. CHLORIDE 2025-04-11 13:16 [facility] 103 mmol/l As of January 2023 testing method has changed, this may include reference ranges. WHITE BLOOD COUNT 2025-04-11 13:16 [facility] 11.3 x10 3/ul (missing) GLUCOSE 2025-04-11 13:16 [facility] 123 mg/dl As of January 2023 testing method has changed, this may include reference ranges. SODIUM 2025-04-11 13:16 [facility] 139 mmol/l Unknown IRON 2025-04-11 13:16 [facility] 144 ug/dl As of January 2023 testing method has changed, this may include reference ranges. ALT ALANINE AMINOTRANSFERASE 2025-04-11 13:16 [facility] 17 iu/l As of January 2023 testing method has changed, this may include reference ranges. BUN - BLOOD UREA NITROGEN 2025-04-11 13:16 [facility] 17 mg/dl As of January 2023 testing method has changed, this may include reference ranges. PLT - PLATELET COUNT 2025-04-11 13:16 [facility] 180 10 3/ul (missing) RED CELL DISTRIBUTION WIDTH 2025-04-11 13:16 [facility] 19.7 % (missing) BAND NEUTROPHILS % (MANUAL) 2025-04-11 13:16 [facility] 2 % (missing) GLOBULIN 2025-04-11 13:16 [facility] 2.7 g/dl (missing) ALBUMIN 2025-04-11 13:16 [facility] 2.9 g/dl (missing) TRANSFERRIN 2025-04-11 13:16 [facility] 243 mg/dl As of January 2023 testing method has changed, this may include reference ranges. MEAN CORPUSCULAR HEMOGLOBIN 2025-04-11 13:16 [facility] 25.8 pg (missing) IMMUNOGLOBULIN A (IGA) 2025-04-11 13:16 [facility] 255 mg/dl (missing) MEAN CORPUSCULAR HGB CONC 2025-04-11 13:16 [facility] 26.3 g/dl (missing) AST ASPARTATE AMINOTRANSFERASE 2025-04-11 13:16 [facility] 29 iu/l As of January 2023 testing method has changed, this may include reference ranges. RBC MORPHOLOGY (MULTIPLE) 2025-04-11 13:16 [facility] 3+ ANISOCYTOSIS (missing ) (missing) GLOBULIN TOTAL 2025-04-11 13:16 [facility] 3.1 g/dl (missing) RED BLOOD COUNT 2025-04-11 13:16 [facility] 3.26 10 6/ul (missing) ALBUMIN 2025-04-11 13:16 [facility] 3.7 g/dl As of January 2023 testing method has changed, this may include reference ranges. POTASSIUM 2025-04-11 13:16 [facility] 3.9 mmol/l As of January 2023 testing method has changed, this may include reference ranges. CARBON DIOXIDE - CO2 2025-04-11 13:16 [facility] 30 mmol/l As of January 2023 testing method has changed, this may include reference ranges. HEMATOCRIT 2025-04-11 13:16 [facility] 30.9 % (missing) HCT - HEMATOCRIT 2025-04-11 13:16 [facility] 31.9 % (missing) LDH - LACTATE DEHYDROGENASE 2025-04-11 13:16 [facility] 328 iu/l As of January 2023 testing method has changed, this may include reference ranges. LAMBDA FREE LT CHAINS SERUM 2025-04-11 13:16 [facility] 34.2 mg/l (missing) TOTAL IRON BINDING CAPACITY 2025-04-11 13:16 [facility] 340 ug/dl (missing) METAMYELOCYTES % (MANUAL) 2025-04-11 13:16 [facility] 4 % (missing) KAPPA FREE LT CHAINS SERUM 2025-04-11 13:16 [facility] 40.7 mg/l (missing) % IRON SATURATION 2025-04-11 13:16 [facility] 42 % (missing) FERRITIN 2025-04-11 13:16 [facility] 51.8 ng/ml (missing) GFR - MDRD 2025-04-11 13:16 [facility] 53 (missing ) The IDMS-traceable MDRD Study Equation has been validated extensively in and populations between the ages of 18 and 70 with impaired kidney function (eGFR < 60 mL/min/1.73m2) and has shown good performance for patients with all common causes of kidney disease. Although this equation has not been validated for patients older than 70, an MDRD-derived eGFR may still be a useful tool for providers caring for patients older than 70. References: http://www.nkdep.n ih.gov/lab-evaluat ion/gfr/creatinine -stand ardization, last updated September 2011. MYELOCYTES % (MANUAL) 2025-04-11 13:16 [facility] 6 % (missing) REACTIVE LYMPHS % (MANUAL) 2025-04-11 13:16 [facility] 6 % (missing) ANION GAP 2025-04-11 13:16 [facility] 6.0 (missing ) (missing) PROTEIN TOTAL 2025-04-11 13:16 [facility] 6.0 g/dl (missing) TOTAL PROTEIN 2025-04-11 13:16 [facility] 6.4 g/dl As of January 2023 testing method has changed, this may include reference ranges. NEUTROPHILS # (AUTO) 2025-04-11 13:16 [facility] 6.6 10 3/ul (missing) IMMUNOGLOBULIN M (IGM) 2025-04-11 13:16 [facility] 69 mg/dl (missing) HAPTOGLOBIN 2025-04-11 13:16 [facility] 69 mg/dl Performed at: [facility] [address], [place], [place] [id number] Pill Coater: Tee Ibrahim MD, Phone: [phone] NEUTROPHILS # (MANUAL) 2025-04-11 13:16 [facility] 7.8 10 3/ul (missing) HGB - HEMOGLOBIN 2025-04-11 13:16 [facility] 8.4 g/dl (missing) NUCLEATED RED BLOOD CELLS AUTO 2025-04-11 13:16 [facility] 8.7 /100wbc (missing) IMMUNOGLOBULIN G (IGG) 2025-04-11 13:16 [facility] 898 mg/dl (missing) NUCLEATED RBC (MANUAL) 2025-04-11 13:16 [facility] 9 % (missing) CALCIUM 2025-04-11 13:16 [facility] 9.2 mg/dl As of January 2023 testing method has changed, this may include reference ranges. MEAN CORPUSCULAR VOLUME 2025-04-11 13:16 [facility] 97.9 fl (missing) PLEASE NOTE 2025-04-11 13:16 [facility] Comment (missing ) Protein electrophoresis scan will follow via computer, mail, or drop wire operator delivery. Performed at: [facility] [address], [place], [place] [id number] Pill Coater: Tee Ibrahim MD, Phone: [phone] Performed at: [facility] [address], [place], [place] [id number] Pill Coater: Teresa Simon MD, Phone: [phone] IMMUNOFIXATION SERUM 2025-04-11 13:16 [facility] Comment (missing ) The immunofixation pattern appears unremarkable. Evidence of monoclonal protein is not apparent. DIFFERENTIAL COMMENT 2025-04-11 13:16 [facility] MANUAL DIFFERENTIAL (missing ) (missing) M-SPIKE 2025-04-11 13:16 [facility] Not Observed g/dl (missing) Result panel 20 BAND NEUTROPHILS % (MANUAL) 2025-05-17 07:54 [facility] 0 % (missing) BASOPHILS # (MANUAL) 2025-05-17 07:54 [facility] 0.0 10 3/ul (missing) MONOCYTES # (MANUAL) 2025-05-17 07:54 [facility] 0.2 10 3/ul (missing) BILIRUBIN,TOTAL 2025-05-17 07:54 [facility] 0.8 mg/dl As of January 2023 testing method has changed, this may include reference ranges. RBC MORPHOLOGY (MULTIPLE) 2025-05-17 07:54 [facility] 1+ ANISOCYTOSIS (miss ing) (missing) RBC MORPHOLOGY (MULTIPLE) 2025-05-17 07:54 [facility] 1+ POLYCHROMASIA (miss ing) (missing) WBC MORPHOLOGY (MULTIPLE) 2025-05-17 07:54 [facility] 1+ TOXIC GRANULATION (miss ing) (missing) CREATININE 2025-05-17 07:54 [facility] 1.1 mg/dl As of January 2023 testing method has changed, this may include reference ranges. EOSINOPHILS # (MANUAL) 2025-05-17 07:54 [facility] 1.3 10 3/ul (missing) ALBUMIN/GLOBULIN RATIO 2025-05-17 07:54 [facility] 1.5 (miss ing) (missing) TOTAL CELLS COUNTED 2025-05-17 07:54 [facility] 100 (miss ing) (missing) GLUCOSE 2025-05-17 07:54 [facility] 100 mg/dl As of January 2023 testing method has changed, this may include reference ranges. CHLORIDE 2025-05-17 07:54 [facility] 101 mmol/ l As of January 2023 testing method has changed, this may include reference ranges. ALKALINE PHOSPHATASE 2025-05-17 07:54 [facility] 102 iu/l As of January 2023 testing method has changed, this may include reference ranges. SODIUM 2025-05-17 07:54 [facility] 140 mmol/ l (missing) WHITE BLOOD COUNT 2025-05-17 07:54 [facility] 15.9 x10 3/ul (missing) ALT ALANINE AMINOTRANSFERASE 2025-05-17 07:54 [facility] 18 iu/l As of January 2023 testing method has changed, this may include reference ranges. RED CELL DISTRIBUTION WIDTH 2025-05-17 07:54 [facility] 18.3 % (missing) NUCLEATED RBC (MANUAL) 2025-05-17 07:54 [facility] 2 % (missing) RBC MORPHOLOGY (MULTIPLE) 2025-05-17 07:54 [facility] 2+ STOMATOCYTES (miss ing) (missing) GLOBULIN 2025-05-17 07:54 [facility] 2.6 g/dl (missing) BUN - BLOOD UREA NITROGEN 2025-05-17 07:54 [facility] 21 mg/dl As of January 2023 testing method has changed, this may include reference ranges. MEAN CORPUSCULAR HEMOGLOBIN 2025-05-17 07:54 [facility] 25.4 pg (missing) MEAN CORPUSCULAR HGB CONC 2025-05-17 07:54 [facility] 27.4 g/dl (missing) METAMYELOCYTES % (MANUAL) 2025-05-17 07:54 [facility] 3 % (missing) RBC MORPHOLOGY (MULTIPLE) 2025-05-17 07:54 [facility] 3+ HYPOCHROMASIA (miss ing) (missing) POTASSIUM 2025-05-17 07:54 [facility] 3.4 mmol/ l As of January 2023 testing method has changed, this may include reference ranges. RED BLOOD COUNT 2025-05-17 07:54 [facility] 3.50 10 6/ul (missing) ALBUMIN 2025-05-17 07:54 [facility] 3.9 g/dl As of January 2023 testing method has changed, this may include reference ranges. AST ASPARTATE AMINOTRANSFERASE 2025-05-17 07:54 [facility] 30 iu/l As of January 2023 testing method has changed, this may include reference ranges. HCT - HEMATOCRIT 2025-05-17 07:54 [facility] 32.5 % (missing) CARBON DIOXIDE - CO2 2025-05-17 07:54 [facility] 35 mmol/ l As of January 2023 testing method has changed, this may include reference ranges. ANION GAP 2025-05-17 07:54 [facility] 4.0 (miss ing) (missing) LYMPHOCYTES # (MANUAL) 2025-05-17 07:54 [facility] 4.6 10 3/ul (missing) PLT - PLATELET COUNT 2025-05-17 07:54 [facility] 408 10 3/ul (missing) GFR - MDRD 2025-05-17 07:54 [facility] 47 (miss ing) The IDMS-traceable MDRD Study Equation has been validated extensively in and populations between the ages of 18 and 70 with impaired kidney function (eGFR < 60 mL/min/1.73m2) and has shown good performance for patients with all common causes of kidney disease. Although this equation has not been validated for patients older than 70, an MDRD-derived eGFR may still be a useful tool for providers caring for patients older than 70. References: http://www.nkdep.ni h.gov/lab-evaluatio n/gfr/creatinine-st and ardization, last updated September 2011. TOTAL PROTEIN 2025-05-17 07:54 [facility] 6.5 g/dl As of January 2023 testing method has changed, this may include reference ranges. MYELOCYTES % (MANUAL) 2025-05-17 07:54 [facility] 7 % (missing) NEUTROPHILS # (MANUAL) 2025-05-17 07:54 [facility] 8.3 10 3/ul (missing) HGB - HEMOGLOBIN 2025-05-17 07:54 [facility] 8.9 g/dl (missing) ABNORMAL LYMPHS % (MANUAL) 2025-05-17 07:54 [facility] 9 % (missing) CALCIUM 2025-05-17 07:54 [facility] 9.4 mg/dl As of January 2023 testing method has changed, this may include reference ranges. MEAN PLATELET VOLUME 2025-05-17 07:54 [facility] 9.5 fl (missing) MEAN CORPUSCULAR VOLUME 2025-05-17 07:54 [facility] 92.9 fl (missing) FLOW COMMENT 2025-05-17 07:54 [facility] Comment (miss ing) 1. The findings are concerning for a high-grade primary myeloid neoplasm / evolving acute leukemia. Correlation with the patient?s complete clinical history is recommended; and assessment of a bone marrow specimen, with appropriate genetic and molecular studies will be required for more definitive evaluation. 2. Peripheral blood evaluation demonstrated 2% blasts in a background of left shifted granulocytes with dysplasia. - FLOW CYTOMETRY ANALYSIS: CD34+ myeloid blasts: 6.8% with partial dim expression of CD7, and CD56; mild drop in CD38; and normal expression of CD34, CD117, HLA-DR, CD13, CD33, and dim CD45. Granulocytes: 80.3% with left shift and partial aberrant expression of CD56, mild dyssynchronous maturational expression of CD13, and CD16; and loss of CD10. Monocytes: 1.2% Lymphocytes: 10.2% - B-cells: 1.9% with normal kappa:lambda ratio of 1.0. - T-cells: 73.8% with normal CD4:CD8 ratio of 2.5. - NK-cells: 20.5% Viability: 96.3% LEUKEMIA/LYMPHOMA COMMENT 2025-05-17 07:54 [facility] Comment (miss ing) Each antibody in this assay was utilized to assess for potential abnormalities of studied cell populations or to characterize identified abnormalities. This test was developed and its performance characteristics determined by [facility]. It has not been cleared or approved by the U.S. Food and Drug Administration. The FDA has determined that such clearance or approval is not necessary. This test is used for clinical purposes. It should not be regarded as investigational or for research. Performed at: [address] [id number] Pill Coater: Tee Ibrahim MD, Phone: [phone] SPECIMEN TYPE 2025-05-17 07:54 [facility] Comment (miss ing) Peripheral Blood RESULTING PATH NAME 2025-05-17 07:54 [facility] Comment (miss ing) Reviewed by: Jam Song MD, Pathologist NPI- [id number] FLOW INTERPRETATION 2025-05-17 07:54 [facility] Comment (miss ing) SPECIMEN TYPE: Peripheral Blood FLOW INTERPRETATION: Increased myeloid blasts, 6.8% by flow cytometry, with mild immunophenotypic alterations, and granulocytes with left shift and multiple immunophenotypic aberrancies, see comments. No monotypic B-cells or aberrant T-cell population. INDICATIONS FOR STUDY 2025-05-17 07:54 [facility] Comment (miss ing) The following antigens were evaluated: CD2, CD3, CD4, CD5, CD7, CD8, CD10, CD11b, CD11c, CD13, CD14, CD15, CD16, CD19, CD20, CD22, CD23, CD33, CD34, CD38, CD45, CD56, CD57, CD64, CD103, CD117, FMC-7, HLA-DR, kappa and lambda. DIFFERENTIAL COMMENT 2025-05-17 07:54 [facility] MANUAL DIFFERENTIAL (miss ing) (missing) PLATELET ESTIMATE, MANUAL 2025-05-17 07:54 [facility] NORMAL (130-450,000) (miss ing) (missing) PLATELET MORPHOLOGY 2025-05-17 07:54 [facility] NORMAL APPEARANCE (miss ing) (missing) CLINICAL INFORMATION 2025-05-17 07:54 [facility] TNP (miss ing) (missing) LAB 07:54 [facility] TNP (miss ing) (missing) Social History date description facility
[2025-05-18 23:46] LABS: HCT - HEMATOCRIT 25.4 % (37.0-47.0); MEAN PLATELET VOLUME 10.4 fL (7.9-10.8); PLT - PLATELET COUNT 361 10^3/uL (130-450); RED CELL DISTRIBUTION WIDTH 18.1 % (12.0-15.0)
[2025-05-18 23:48] LABS: HGB - HEMOGLOBIN 6.9 g/dL (12.0-16.0)
[2025-05-18 23:49] LABS: BASOPHILS # (MANUAL) 0.0 10^3/uL (0-0.1); MONOCYTES # (MANUAL) 0.0 10^3/uL (0.0-1.0)
[2025-05-19 00:04] LABS: ALT ALANINE AMINOTRANSFERASE 17.0 IU/L (10-60); AST ASPARTATE AMINOTRANSFERASE 30.0 IU/L (10-42); BUN - BLOOD UREA NITROGEN 43.0 mg/dL (6-20); CARBON DIOXIDE - CO2 30.0 mmol/L (21-32); CREATININE 1.0 mg/dL (0.6-1.3); GFR - MDRD 53.0 (>89)
[2025-05-19 00:21] LABS: ABNORMAL LYMPHS % (MANUAL) 2 %; BAND NEUTROPHILS % (MANUAL) 1 %; EOSINOPHILS # (MANUAL) 0.2 10^3/uL (0-0.7); LYMPHOCYTES # (MANUAL) 4.0 10^3/uL (1.5-3.5); LYMPHOCYTES % (MANUAL) 16 %; METAMYELOCYTES % (MANUAL) 1 %; MYELOCYTES % (MANUAL) 8 %; NEUTROPHILS # (MANUAL) 14.6 10^3/uL (1.5-6.6); NUCLEATED RBC (MANUAL) 10 %; PROMYELOCYTES % (MANUAL) 6 %
[2025-05-19 00:26] LABS: WBC MORPHOLOGY (MULTIPLE) 1+AGRANULA (NORMAL)
[2025-05-19 00:30] LABS: PLATELET ESTIMATE, MANUAL NORMAL (130-450,000) (NORMAL); PLATELET MORPHOLOGY 1+ LARGE PLATELETS (NORMAL)
--- NOTE | 2025-05-19 00:34 | ED Physician Documentation ---
History of Present Illness Stated complaint Stated Complaint: DARK STOOL Chief complaint Chief Complaint: General Additonal information Additional information: Patient is an 84-year-old female with recent endoscopy a couple days ago here at our hospital for workup of anemia. During that procedure they did find an oozing ulcer, which was clipped. She states that since that time, she had had ongoing discomfort that is hard for her to localize. She states that generally she feels bloated and uncomfortable, but has a hard time localizing what exactly is making her not feel well. She denies chest pain or shortness of breath. She denies orthopnea. She denies any increased lower extremity swelling. She states that the reason she came to the ER tonight is because she had a dark stool, and was concerned for potential GI bleeding. She denies fever, chills, nausea, vomiting. Denies hematemesis. She denies urination changes. Review of Systems Status of ROS: See HPI Meds/Allgy Home Medications Ambulatory Orders Medication Instructions Recorded Confirmed atorvastatin 40 mg tablet (Lipitor) 80 mg PO HS 05/17/25 acetaminophen 500 mg tablet 1,000 mg PO TID 10/29/23 1 (Acetaminophen Extra Strength) amlodipine 5 mg tablet 5 mg PO DAILY 01/14/2405/17 ondansetron 4 mg disintegrating 4 mg translingual Q12H PRN Nausea 01/14/24 05/17/25 tablet / Vomiting multivitamin with folic acid 400 1 tab PO DAILYWM 12/2505/17/25 mcg tablet (Thera) furosemide 20 mg tablet (Lasix) 20 mg PO DAILY #14 tab s 01/14/25 05/17/25 gabapentin 100 mg capsule 400 mg PO QPM 02/15/2505/17 trazodone 50 mg tablet 100 mg PO QPM PRN Insomnia 0 02/15/25 05/17/25 metoprolol succinate 25 mg 12.5 mg PO DAILY 03/18/25 1 tablet,extended release 24 hr diphenoxylate-atropine 2.5 1 - 2 tab PO Q6H PRN diarrh ea 03/19/25 05/17/25 mg-0.025 mg tablet pantoprazole 40 mg tablet,delayed 40 mg PO BIDAC #60 t abs 03/21/25 05/17/25 release oxycodone 5 mg tablet 5 mg PO Q8H PRN pain #14 tab s 03/22/25 05/17/25 sodium sul 1.479 gram-potas ch See Rx Instructions PO PER PKG DIR 04/23/25 05/17/25 0.188 gram-magnes sul 0.225 gram bowel prep #1 kit tablet (Sutab) Held on 05/17/25. Instructions: not having colonoscopy apixaban 5 mg tablet (Eliquis) 5 mg PO BID 05/11/25 pantoprazole 40 mg tablet,delayed 40 mg PO QDAY #30 ta bs 05/17/25 release sucralfate 100 mg/mL oral 10 ml PO QID 30 days #1,200 mL 05/17/25 suspension (Carafate) Allergies Allergies Allergy/AdvReac Type Severity Reaction Status Date / Time clopidogrel bisulfate * Allergy Severe Rash Verified 05/18/25 23:25 (From Plavix) erythromycin base Allergy Mild Rash Verified 05/18/25 23:25 (Erythromycin Base) Penicillins Allergy Mild Rash Verified 05/18/25 23:25 spironolactone Allergy Mild Rash Verified 05/18/25 23:25 diazepam (From Valium) AdvReac Mild Anxiety Verified 05/18/25 23:25 PFSH Active Problems All Active Problems (Updated 05/19/25 @ 02:00 by Jorge L Johnston MD) Anemia (Chronic) GI bleed (Acute) Rectal bleeding (Acute) Healthcare maintenance (Acute) Hepatosplenomegaly (Acute) Chronic pain (Acute) Leukocytosis (Acute) Complicated UTI (urinary tract infection) (Acute) Anemia (Acute) Pneumonia (Acute) Hematoma (Acute) Cellulitis of hand (Acute) Chronic sinusitis (Acute) Cat scratch of hand (Acute) Medical History Medical History Implantable loop recorder present GI bleed Nausea vomiting and diarrhea Food poisoning Bronchitis, asthmatic Accidental fall Fracture of greater tuberosity of humerus Vomiting Hot flashes Anemia Generalized weakness Near syncope Dyspnea Urinary tract infection Dehydration Open wound of abdomen ISTAP type 1 skin tear of right forearm Open wound of right wrist Left leg cellulitis Shortness of breath Dizziness Gastrointestinal hemorrhage Anemia due to acute blood loss Venous stasis ulcer of left lower leg with edema of left lower leg Atrial fibrillation Non-pressure chronic ulcer of skin of other sites with fat layer exposed Esophageal varices determined by endoscopy Hyperlipidemia HTN (hypertension) ETOH abuse Hx of cholecystitis GI bleed due to NSAIDs Surgical History Surgical History History of vertebroplasty (~1979) T-[address] Leahy History of tonsillectomy and adenoidectomy History of bilateral cataract extraction History of appendectomy Family History Family History Sister Breast cancer Father CVA (cerebral vascular accident) Dementia Mother ALS (amyotrophic lateral sclerosis) Son Diabetes Social History Social History Smoking Status: Former smoker If you are a former smoker, when did you quit? (Date/Year): 07/26/2008 Number of Years Smoked: 65 How many cigarettes a day do you smoke? (20 cigarettes=1 Pk): 1 Do you dip or chew tobacco?: No Do you vape?: No Patient requests smoking cessation consult: No Initiate information on smoking cessation: No Living arrangement: At home (family in area ) Living Condition: Alone Level: Assisted Do you feel safe in your home environment?: Yes History of physical, verbal, emotional, or financial abuse?: No ETOH Use: None Frequency: Occasional Substance Use: denies use POLST Patient has POLST: No POLST CPR Status: Attempt Resuscitation (CPR) Level of Medical Intervention: Full Treatment Exam Exam Vital Signs: Vital Signs x48h Temp Pulse Pulse Resp BP BP Pulse Ox 05/19/25 02:00 36.5 C 98 15 97/74 95 05/19/25 01:33 36.6 C 88 14 109/59 L 98 05/18/25 23:23 36.6 C 92 15 121/64 95 Constitutional normal general appearance Resting comfortably, no acute distress. Nontoxic, no diaphoresis, no pallor. HENMT normocephalic Eyes conjunctivae normal and no scleral icterus Neck/C-Spine cervical full ROM noted and supple Respiratory breath sounds equal bilaterally, normal respiratory effort, clear to auscultation bilaterally and no wheezes Clear to auscultation bilaterally, satting at 96% on room air. No increased respiratory effort Cardiovascular Heart rate in the low 90s, regular. Normal S1-S2, no murmurs. Radial pulses 2+ and symmetric Gastrointestinal abdomen soft to palpation, nontender to palpation and nontender to percussion Nontender to palpation. No guarding, no rigidity, no peritoneal signs. Mild distention. 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 terminal worker II-XII intact and GCS 15 Psychiatry mental status grossly normal and oriented x3 Skin skin color normal Results Vitals Vitals: Vital Signs - 24 hr 05/18/25 23:23 05/19/25 00:56 05/19/25 01:33 Temperature 36.6 C 36.6 C Temperature Source Temporal Artery Scan Temporal Artery Scan Pulse Rate 92 Pulse Rate [Monitoring electrodes] 88 Respiratory Rate 15 14 Blood Pressure 121/64 Blood Pressure [Right Automatic] 109/59 L O2 Saturation 95 98 O2 Source Room air Room air Sedation scale 0-Fully awake Pain Intensity 6 8 5 05/19/25 02:00 Temperature 36.5 C Temperature Source Temporal Artery Scan Pulse Rate Pulse Rate [Monitoring electrodes] 98 Respiratory Rate 15 Blood Pressure Blood Pressure [Right Automatic] 97/74 O2 Saturation 95 O2 Source Room air Sedation scale 0-Fully awake Pain Intensity 0 Oxygen O2 Source Room air Labs Labs: Laboratory Tests 05/18/25 05/18/25 05/18/25 23:42 23:42 23:42 WBC 22.1 H RBC 2.68 L Hgb 6.9 L* Hct 25.4 L MCV 94.8 MCH 25.7 L MCHC 27.2 L RDW 18.1 H Plt Count 361 MPV 10.4 Neut # (Auto) Not Reportable Lymph # (Auto) Not Reportable Hudson # (Auto) Not Reportable Eos # (Auto) Not Reportable Baso # (Auto) Not Reportable Absolute Nucleated RBC Not Reportable Total Counted 100 Band Neuts % (Manual) 1 Abnorm Lymph % (Manual) 2 Metamyelocytes % 1 H Myelocytes % 8 H Promyelocytes % 6 H Nucleated RBC % Not Reportable Neutrophils # (Manual) 14.6 H Lymphocytes # (Manual) 4.0 H Monocytes # (Manual) 0.0 Eosinophils # (Manual) 0.2 Basophils # (Manual) 0.0 Nucleated RBCs 10 Differential Comment MANUAL DIFFERENTIAL WBC Morphology 1+AGRANULA Platelet Estimate NORMAL (130-450,000) Platelet Morphology 1+ LARGE PLATELETS RBC Morph Micro Appear 1+ ANISOCYTOSIS 1+ MICROCYTOSIS 2+ HYPOCHROMASIA Sodium 138 Potassium 3.4 L Chloride 101 Carbon Dioxide 30 Anion Gap 7.0 BUN 43 H Creatinine 1.0 Estimated GFR (MDRD) 53 L Glucose 122 H Calcium 9.3 Total Bilirubin 1.0 AST 30 ALT 17 Alkaline Phosphatase 80 Troponin I High Sens 7.7 B-Natriuretic Peptide 203 H Total Protein 6.2 L Albumin 3.9 Globulin 2.3 Albumin/Globulin Ratio 1.7 Blood Type Antibody Screen Crossmatch IS Only 05/19/25 00:16 WBC RBC Hgb Hct MCV MCH MCHC RDW Plt Count MPV Neut # (Auto) Lymph # (Auto) Hudson # (Auto) Eos # (Auto) Baso # (Auto) Absolute Nucleated RBC Total Counted Band Neuts % (Manual) Abnorm Lymph % (Manual) Metamyelocytes % Myelocytes % Promyelocytes % Nucleated RBC % Neutrophils # (Manual) Lymphocytes # (Manual) Monocytes # (Manual) Eosinophils # (Manual) Basophils # (Manual) Nucleated RBCs Differential Comment WBC Morphology Platelet Estimate Platelet Morphology RBC Morph Micro Appear Sodium Potassium Chloride Carbon Dioxide Anion Gap BUN Creatinine Estimated GFR (MDRD) Glucose Calcium Total Bilirubin AST ALT Alkaline Phosphatase Troponin I High Sens B-Natriuretic Peptide Total Protein Albumin Globulin Albumin/Globulin Ratio Blood Type O POSITIVE Antibody Screen NEGATIVE Crossmatch IS Only See Detail PD Medical Decision Making ED course ED course: Assessment: Patient is is an 84-year-old female with multiple comorbidities presenting with concerns for GI bleed. She had clipping of a oozing ulcer in her stomach couple days ago here at our hospital. Since that time she states that she has had a dark tarry stool. Vital signs stable. Endorses some mild abdominal distention and vague discomfort that she cannot localize. Denies chest pain or shortness of breath. DDx: Includes but is not limited to, ACS, [place], NSTEMI, STEMI, gastritis, peptic ulcer disease, gastric ulcer, gastric perforation, GI bleed, anemia, electrolyte abnormality, etc. Workup: CBC with a white count of 22.1, hemoglobin 6.9. CMP with a potassium of 3.4, BUN is elevated at 43. Creatinine stable at 1.0. BNP is 203. Troponin not elevated at 7.7. Blood type O+. Chest x-ray without acute cardiopulmonary process, though cardiomegaly is present. There is no pleural effusions, pneumothorax, consolidations. No osseous abnormalities, stable appearance of diaphragm. Treatment: 1 unit PRBC, Tylenol 1000 milligrams, IV Protonix, Rocephin 1 g Discussion: I discussed patient's presentation with on-call surgeon, who thought that the leukocytosis was somewhat abnormal, and with a 2 point hemoglobin drop in the setting of recent endoscopy was reasonable to admit this patient, especially considering her significant comorbidities. On-call surgeon recommended medicine admission with surgical team consulting and available as needed for further procedures/potential endoscopy this weekend. I spoke with on-call hospitalist who agreed to admit patient to their service. Admitting diagnosis is GI bleeding in setting of recent endoscopy/gastric ulcer clipping. Patient tolerated blood transfusion without difficulty. Remained afebrile with stable blood pressure. During my shift she was transferred to the floor. Discharge Plan Discharge Patient Disposition: [facility] DC/Xfer Condition: Stable Clinical Impression: GI bleed, Anemia Interventions: ED Admission Assessment Last Done: 05/19/25 03:06
--- NOTE | 2025-05-19 00:50 | XRAY Report ---
PROCEDURE: XR Chest 2V INDICATIONS: SOB, syncopal symptoms TECHNIQUE: 2 views of the chest were acquired. COMPARISON: CXR 03/18/2025. FINDINGS: Surgical changes and devices: Left pacemaker. Clips in the upper abdomen. Coronary stents. Lungs and pleura: No pleural effusions or pneumothorax. No consolidation. Mild scarring in the right lung. Mediastinum: Mediastinal contours appear normal. Heart size is enlarged. Bones and chest wall: No suspicious bony lesions. Prior thoracic vertebroplasty. Overlying soft tissues appear unremarkable. IMPRESSION: No acute cardiopulmonary process. Cardiomegaly. Reviewed by: John Torrez MD on 05/19/2025 12:47 AM PDT Approved by: John Torrez MD on 05/19/2025 12:47 AM PDT Station ID: [id number]
[2025-05-19] MEDS: ACETAMINOPHEN 500 MG TABLET PO STA (00:56)
--- OUTSIDE RECORDS SUMMARY | 2025-05-19 02:29 | EXTERNAL MEDICAL SUMMARY RPT | Continuity of Care Document ---
Author Organization [place] Address [address] [address] Phone Problems date description facility 2025-03-10 20:09 Heart failure, unspecified [email or web address] 2025-03-12 11:27 Heart failure, unspecified [email or web address] 2025-03-13 09:36 Heart failure, unspecified [email or web address] 2025-03-13 09:36 Shortness of breath [facility] 2025-03-14 14:02 Abscess of tendon sheath, right lower leg [address] [facility] 2025-03-18 12:07 Abscess of tendon sheath, right lower leg [facility] 2025-03-18 13:55 Gastrointestinal hemorrhage, un specified [address] [facility] 2025-03-18 14:43 Gastrointestinal hemorrhage, un specified [facility] 2025-03-19 08:35 Acute posthemorrhagic anemia [facility] 2025-03-19 08:35 Hyperlipidemia, unspecified [facility]25-03-19 08:35 Essential (primary) hypertensio n [address] [facility] 2025-03-19 08:35 Unspecified atrial fibrillation [facility] 2025-03-19 08:35 Heart failure, unspecified [email or web address] 2025-03-19 08:35 Gastrointestinal hemorrhage, un specified [address] [facility] 2025-03-19 08:35 Shortness of breath [facility] 2025-03-21 09:44 Acute posthemorrhagic anemia Huan Xiong 2025-03-21 09:44 Elevated white blood cell count , unspecified [facility] 2025-03-21 09:44 Hyperlipidemia, unspecified i [employer] [facility] 2025-03-21 09:44 Essential (primary) hypertensio n [facility] 2025-03-21 09:44 Unspecified atrial fibrillation [address] [facility] 2025-03-21 09:44 Heart failure, unspecified Whanthony clark [facility] 2025-03-21 09:44 Gastrointestinal hemorrhage, un specified [facility] 2025-03-21 09:44 Shortness of breath [facility] 2025-03-21 12:05 [facility]orrh[facility] 2025-03-21 12:05 Elevated white blood cell count , unspecified [facility] 2025-03-21 12:05 Hyperlipidemia, unspecified i [facility] 2025-03-21 12:05 Essential (primary) hypertensio n [facility] 2025-03-21 12:05 Unspecified atrial fibrillation [facility] 2025-03-21 12:05 Heart failure, unspecified anthony [facility] 2025-03-21 12:05 Gastrointestinal hemorrhage, un specified [facility] 2025-03-21 12:05 Shortness of breath josefina [facility] 2025-03-21 12:06 Acute [facility]hemorrhagic anemia [facility] 2025-03-21 12:06 Elevated white blood cell count , unspecified [facility] 2025-03-21 12:06 Hyperlipidemia, unspecified [facility] 2025-03-21 12:06 Essential (primary) hypertensio n [facility] 2025-03-21 12:06 Unspecified atrial fibrillation [facility] 2025-03-21 12:06 Heart failure, unspecified anthony clark [facility] 2025-03-21 12:06 Gastrointestinal hemorrhage, un specified [facility] 2025-03-21 12:06 Shortness of breath [facility] 2025-03-22 12:48 Acute [facility]hemorrhagic anemia [facility] 2025-03-22 12:48 Elevated white blood cell count , unspecified [facility] 2025-03-22 12:48 Hyperlipidemia, unspecified i [facility] 2025-03-22 12:48 Essential (primary) hypertensio n [facility] 2025-03-22 12:48 Unspecified atrial fibrillation [facility]25-[facility]-22 12:48 Heart failure, unspecified id amber [facility] 2025-03-22 12:48 Gastrointestinal hemorrhage, un specified [facility] 2025-03-22 12:48 Shortness of breath [facility] Eldera [facility] 2025-03-22 13:33 Acute posthemorrhagic anemia id[facility] 2025-03-22 13:33 Elevated white blood cell count , unspecified [facility] 2025-03-22 13:33 Hyperlipidemia, unspecified i parth [facility] 2025-03-22 13:33 Essential (primary) hypertensio n [facility] 2025-03-22 13:33 Unspecified atrial fibrillation [facility] 2025-03-22 13:33 Heart failure, unspecified [facility]id [facility] 2025-03-22 13:33 Gastrointestinal hemorrhage, un specified idbey [facility] 2025-03-22 13:33 Shortness of breath anthonybeleno Friedmana [facility] 2025-03-22 14:47 Acute posthemorrhagic anemia [facility] 2025-03-22 14:47 Elevated white blood cell count , unspecified [facility] 2025-03-22 14:47 Hyperlipidemia, unspecified i [facility] 2025-03-22 14:47 Essential (primary) [facility]ensio n [facility] 2025-03-22 14:47 Unspecified atrial fibrillation [facility]osed[facility] 2025-03-22 14:47 Heart failure, unspecified id bey [facility] 2025-03-22 14:47 Gastrointestinal hemorrhage, un specified [facility] 2025-03-22 14:47 Shortness of breath josefina Friedmana [facility] 2025-04-11 11:58 Abscess of tendon sheath, right lower leg [facility] 2025-04-11 11:59 Abscess of tendon sheath, right lower leg [facility] 2025-04-11 12:00 Abscess of tendon sheath, right lower leg [facility] 2025-04-11 12:06 Abscess of tendon sheath, right lower leg [facility] 2025-04-11 13:02 Anemia, unspecified [facility] Hea [facility] 2025-04-11 13:02 Elevated white blood cell count , unspecified [facility] 2025-04-11 13:02 Hepatomegaly with sp lenomegaly, not elsewhere classified [facility] 2025-04-12 00:05 Anemia, unspecified [facility] 2025-04-12 06:59 Anemia, unspecified [facility] 2025-04-12 06:59 Elevated white blood cell count , unspecified [facility] 2025-04-12 06:59 Hepatomegaly with sp lenomegaly, not elsewhere classified [facility] 2025-04-12 08:13 Anemia, unspecified [facility] a [facility] 2025-04-12 08:56 Acute posthemorrhagic anemia [facility] 2025-04-12 08:56 Anemia, unspecified [facility] 2025-04-12 08:56 Elevated white blood cell count , unspecified [facility] 2025-04-12 08:56 Hyperlipidemia, unspecified i [facility] 2025-04-12 08:56 Other chronic pain [facility] 2025-04-12 08:56 Essential (primary) hypertensio n [facility] 2025-04-12 08:56 Unspecified atrial fibrillation [facility] 2025-04-12 08:56 Heart failure, unspecified [facility] 2025-04-12 08:56 Pneumonia, unspecified organism [facility] 2025-04-12 08:56 Gastrointestinal hemorrhage, un specified [facility] 2025-04-12 08:56 Pain in left knee [facility] 2025-04-12 08:56 Pain in left leg [facility] 2025-04-12 08:56 Shortness of breath [facility] 2025-04-12 08:56 Other specified symp toms and signs involving the circulatory and respiratory systems [facility] 2025-04-12 08:56 Hepatomegaly with sp lenomegaly, not elsewhere classified [facility] 2025-04-12 08:56 Other fecal abnormalities [facility] 2025-04-12 08:56 Weakness [facility] 2025-04-12 08:56 Other fatigue [facility] 2025-04-12 08:56 Laceration without f oreign body of right hand, initial encounter [facility] 2025-04-12 08:56 Unspecified injury of left hip, initial encounter [facility] 2025-04-12 08:57 Acute posthemorrhagic anemia [facility] 2025-04-12 08:57 Anemia, unspecified [facility] 2025-04-12 08:57 Elevated white blood cell count , unspecified [facility] 2025-04-12 08:57 Hyperlipidemia, unspecified i [facility] 2025-04-12 08:57 Other chronic pain [facility] 2025-04-12 08:57 Essential (primary) hypertensio n [facility] 2025-04-12 08:57 Unspecified atrial fibrillation [facility] 2025-04-12 08:57 Heart failure, unspecified [facility] 2025-04-12 08:57 Pneumonia, unspecified organism [facility] 2025-04-12 08:57 Gastrointestinal hemorrhage, un specified [facility] 2025-04-12 08:57 Pain in left knee [facility] 2025-04-12 08:57 Pain in left leg [facility] 2025-04-12 08:57 Shortness of breath [facility] 2025-04-12 08:57 Other specified symp toms and signs involving the circulatory and respiratory systems [facility] 2025-04-12 08:57 Hepatomegaly with sp lenomegaly, not elsewhere classified [facility] 2025-04-12 08:57 Other fecal abnormalities [facility] 2025-04-12 08:57 Weakness [facility] 2025-04-12 08:57 Other fatigue [facility] 2025-04-12 08:57 Laceration without f oreign body of right hand, initial encounter [facility] 2025-04-12 08:57 Unspecified injury of left hip, initial encounter [facility] 2025-04-16 13:26 Anemia, unspecified [facility] 2025-05-04 13:46 Anemia, unspecified [facility] 2025-05-05 00:01 Anemia, unspecified [facility] 2025-05-05 00:01 Elevated white blood cell count , unspecified [facility] 2025-05-05 00:01 Hepatomegaly with sp lenomegaly, not elsewhere classified [facility] 2025-05-08 16:17 Anemia, unspecified [facility] 2025-05-08 16:17 Elevated white blood cell count , unspecified [facility] 2025-05-08 16:17 Hepatomegaly with sp lenomegaly, not elsewhere classified [facility] 2025-05-17 07:48 Anemia, unspecified [facility] 2025-05-17 07:48 Elevated white blood cell count , unspecified [facility] 2025-05-17 08:23 Anemia, unspecified [facility] 2025-05-17 08:23 Elevated white blood cell count , unspecified [facility] 2025-05-18 00:03 Anemia, unspecified [facility] 2025-05-18 00:03 Elevated white blood cell count , unspecified [facility] 2025-05-18 10:58 Elevated white blood cell count , unspecified [facility] 2025-05-18 23:25 Elevated white blood cell count , unspecified [facility] Results/Labs test date facility value unit notes Result panel 1 ABNORMAL LYMPHS % (MANUAL) 2025-03-10 17:28 [email or web address] 0 % (missing) BASOPHILS # (MANUAL) 2025-03-10 17:28 [facility] 0.0 10 3/ul (missing) EOSINOPHILS # (MANUAL) 2025-03-10 17:28 [facility] 0.0 10 3/ul (missing) MONOCYTES # (MANUAL) 2025-03-10 17:28 [facility] 0.0 10 3/ul (missing) LYMPHOCYTES # (MANUAL) 2025-03-10 17:28 [facility] 0.6 10 3/ul (missing) METAMYELOCYTES % (MANUAL) 2025-03-10 17:28 [facility] 1 % (missing) NUCLEATED RBC (MANUAL) 2025-03-10 17:28 [facility] 1 % (missing) RBC MORPHOLOGY (MULTIPLE) 2025-03-10 17:28 [facility] 1+ ANISOCYTOSIS (reji ng) (missing) PLATELET MORPHOLOGY 2025-03-10 17:28 [facility] 1+ LARGE PLATELETS ([facility]) (missing) RBC MORPHOLOGY (MULTIPLE) 2025-03-10 17:28 [facility] 1+ MICROCYTOSIS (reji ng) (missing) RBC MORPHOLOGY (MULTIPLE) 2025-03-10 17:28 [facility] 1+ POLYCHROMASIA ([facility]) (missing) CREATININE 2025-03-10 17:28 [facility] 1.1 mg/dl As of January 2023 testing method has changed, this may include reference ranges. BILIRUBIN,TOTAL 2025-03-10 17: [facility] 1.2 mg/dl As of January 2023 testing method has changed, this may include reference ranges. ALBUMIN/GLOBULIN RATIO 2025-03-10 17: [facility] 1.3 (reji ng) (missing) NEUTROPHILS # (MANUAL) 2025-03-10 17: [facility] 10.2 10 3/ul (missing) MEAN PLATELET VOLUME 2025-03-10 17: [facility] 10.8 fl (missing) TROPONIN I HIGH SENSITIVITY 2025-03-10 17: [facility] 10.8 ng/l A HIGH SENSITIVITY TROPONIN result of >= 14.9 ng/L for females is considered POSITIVE. A HIGH SENSITIVITY TROPONIN result of >= 19.8 ng/L for males is considered POSITIVE. A HIGH SENSITIVITY TROPONIN result of >= 17.9 ng/L for unspecified is considered POSITIVE. TOTAL CELLS COUNTED 2025-03-10 17: [email or web address] ([facility]) (missing) CHLORIDE 2025-03-10 17:28 [facility] 103 mmol/l As of January 2023 testing method has changed, this may include reference ranges. WHITE BLOOD COUNT 2025-03-10 17: [facility] 11.6 x10 3/ul (missing) ALKALINE PHOSPHATASE 2025-03-10 17: [facility] 119 iu/l As of January 2023 testing method has changed, this may include reference ranges. SODIUM 2025-03-10 17:28 [facility] 137 mmol/l (missing) BUN - BLOOD UREA NITROGEN 2025-03-10 17:28 [facility] 17 mg/dl As of January 2023 testing method has changed, this may include reference ranges. RED CELL DISTRIBUTION WIDTH 2025-03-10 17:28 [email or web address] 17.2 % (missing) BAND NEUTROPHILS % (MANUAL) 2025-03-10 17:28 [email or web address] 2 % (missing) MYELOCYTES % (MANUAL) 2025-03-10 17:28 [email or web address] 2 % (missing) RBC MORPHOLOGY (MULTIPLE) 2025-03-10 17:28 [facility] 2+ BASO STIPPLING ([facility]) (missing) RBC MORPHOLOGY (MULTIPLE) 2025-03-10 17:28 [facility] 2+ HYPOCHROMASIA ([facility]) (missing) RED BLOOD COUNT 2025-03-10 17:28 [facility] 2.71 10 6/ul (missing) GLOBULIN 2025-03-10 17:28 [facility] 2.8 g/dl (missing) LIPASE 2025-03-10 17:28 [facility] 21 u/l As of January 2023 testing method has changed, this may include reference ranges. HCT - HEMATOCRIT 2025-03-10 17:28 [email or web address] 26.3 % (missing) MEAN CORPUSCULAR HEMOGLOBIN 2025-03-10 17:28 [facility] 26.9 pg (missing) CARBON DIOXIDE - CO2 2025-03-10 17:[facility] 27 mmol/l As of January 2023 testing method has changed, this may include reference ranges. MEAN CORPUSCULAR HGB CONC 2025-03-10 17:28 [facility] 27.8 g/dl (missing) ALT ALANINE AMINOTRANSFERASE 2025-03-10 17:28 [facility] 28 iu/l As of January 2023 testing method has changed, this may include reference ranges. ALBUMIN 2025-03-10 17:28 [email or web address] 3.5 g/dl As of January 2023 testing method has changed, this may include reference ranges. POTASSIUM 2025-03-10 17:28 [facility] 3.8 mmol/l As of January 2023 testing method has changed, this may include reference ranges. PLT - PLATELET COUNT 2025-03-10 17:28 [facility] 337 10 3/ul (missing) PROMYELOCYTES % (MANUAL) 2025-03-10 17:28 [facility] 4 % (missing) GFR - MDRD 2025-03-10 17:28 [facility] 47 (reji ng) The IDNV-traceable MDRD Study Equation has been validated extensively [...] older than 70. References: http://www.nkde p.nih.gov/lab-e valuation/gfr/c karli-oxana ardization, last updated September 2011. AST ASPARTATE AMINOTRANSFERASE 2025-03-10 17: [facility] 49 iu/l As of January 2023 testing method has changed, this may include reference ranges. BNP - B-NATRIURETIC PEPTIDE 2025-03-10 17: [facility] 563 pg/ml (missing) TOTAL PROTEIN 2025-03-10 17:28 [facility] 6.3 g/dl As of January 2023 testing method has changed, this may include reference ranges. ANION GAP 2025-03-10 17:28 [facility] 7.0 (reji ng) (missing) HGB - HEMOGLOBIN 2025-03-10 17:28 [facility] 7.3 g/dl (missing) CALCIUM 2025-03-10 17: [facility] 8.7 mg/dl As of January 2023 testing method has changed, this may include reference ranges. GLUCOSE 2025-03-10 17:28 [facility] 83 mg/dl As of January 2023 testing method has changed, this may include reference ranges. MEAN CORPUSCULAR VOLUME 2025-03-10 17:28 [facility] 97.0 fl (missing) SLIDE REVIEW? 2025-03-10 17:28 [facility] Indicated (reji ng) (missing) SLIDE SENT FOR PATH REVIEW? 2025-03-10 17:28 [facility] Indicated (reji ng) (missing) DIFFERENTIAL COMMENT 2025-03-10 17:28 [facility] MANUAL DIFFERENTIAL (reji ng) (missing) PLATELET ESTIMATE, MANUAL 2025-03-10 17:28 [facility] NORMAL (130-450,000) (reji ng) (missing) Result panel 2 PATHOLOGIST SLIDE COMMENTS 2025-03-10 18:14 [facility] SEE SEPARATE REPORT (missing) 03/10/25 [id number] [facility] Report faxed to the ordering physician and scanned to the patient's EMR. Pathologist Slide Review Performed At: [facility] [address] [place] [address], [address] [place] [address] CLIA# [id number] Result panel 3 ABNORMAL LYMPHS % (MANUAL) 2025-03-18 12:49 [facility] 0 % (missing) BASOPHILS # (MANUAL) 2025-03-18 12:49 [facility] 0.0 10 3/ul (missing) EOSINOPHILS # (MANUAL) 2025-03-18 12:49 [facility] 0.0 10 3/ul (missing) MONOCYTES # (MANUAL) 2025-03-18 12:49 [facility] 0.0 10 3/ul (missing) CREATININE 2025-03-18 12:49 [email or web address] 0.8 mg/dl As of January 2023 [...] 1.2 (reji ng) (missing) BILIRUBIN,TOTAL 2025-03-18 12:49 [facility] 1.3 mg/dl As of January 2023 testing method has changed, this may include reference ranges. MEAN PLATELET VOLUME 2025-03-18 12:49 [facility] 10.3 fl (missing) TOTAL CELLS COUNTED 2025-03-18 12:49 [facility] 100 (reji ng) (missing) CHLORIDE 2025-03-18 12:49 [facility] 102 mmol/l As of January 2023 testing method has changed, this may include reference ranges. ALKALINE PHOSPHATASE 2025-03-18 12:49 [facility] 105 iu/l As of January 2023 testing method has changed, this may include reference ranges. GLUCOSE 2025-03-18 12:49 [facility] 106 mg/dl As of January 2023 testing method has changed, this may include reference ranges. NUCLEATED RBC (MANUAL) 2025-03-18 12:49 [facility] 12 % (missing) MYELOCYTES % (MANUAL) 2025-03-18 12:49 [email or web address] 13 % (missing) SODIUM 2025-03-18 12:49 [email or web address] 140 mmol/l (missing) NEUTROPHILS # (MANUAL) 2025-03-18 12:49 [facility] 15.1 10 3/ul (missing) RED CELL DISTRIBUTION WIDTH 2025-03-18 12:49 [email or web address] 18.1 % (missing) BUN - BLOOD UREA NITROGEN 2025-03-18 12:49 [facility] 19 mg/dl As of January 2023 testing method has changed, this may include reference ranges. REACTIVE LYMPHS % (MANUAL) 2025-03-18 12:49 [facility] 2 % (missing) RBC MORPHOLOGY (MULTIPLE) 2025-03-18 12:49 [facility] 2+ HYPOCHROMASIA (reji ng) (missing) RBC MORPHOLOGY (MULTIPLE) 2025-03-18 12:49 [facility] 2+ MICROCYTOSIS (reji ng) (missing) MAGNESIUM 2025-03-18 12:49 [facility] 2.0 mg/dl As of January 2023 testing method has changed, this may include reference ranges. RED BLOOD COUNT 2025-03-18 12:49 [facility] 2.55 10 6/ul (missing) GLOBULIN 2025-03-18 12:49 [facility] 2.8 g/dl (missing) WHITE BLOOD COUNT 2025-03-18 12:49 [facility] 21.0 x10 3/ul (missing) HCT - HEMATOCRIT 2025-03-18 12:49 [facility] 24.7 % (missing) ALT ALANINE AMINOTRANSFERASE 2025-03-18 12:49 [facility] 26 iu/l As of January 2023 testing method has changed, this may include reference ranges. MEAN CORPUSCULAR HEMOGLOBIN 2025-03-18 12:49 [facility] 26.7 pg (missing) MEAN CORPUSCULAR HGB CONC 2025-03-18 12:49 [facility] 27.5 g/dl (missing) LYMPHOCYTES # (MANUAL) 2025-03-18 12:49 [facility] 3.2 10 3/ul (missing) ALBUMIN 2025-03-18 12:49 [facility] 3.3 g/dl As of January 2023 testing method has changed, this may include reference ranges. POTASSIUM 2025-03-18 12:49 [facility] 3.5 mmol/l As of January 2023 testing method has changed, this may include reference ranges. PLT - PLATELET COUNT 2025-03-18 12:49 [email or web address] 328 10 3/ul (missing) CARBON DIOXIDE - CO2 2025-03-18 12:49 [facility] 33 mmol/l As of January 2023 testing method has changed, this may include reference ranges. AST ASPARTATE AMINOTRANSFERASE 2025-03-18 12:49 [facility] 39 iu/l As of January 2023 testing method has changed, this may include reference ranges. BNP - B-NATRIURETIC PEPTIDE 2025-03-18 12:49 [facility] 482 pg/ml (missing) ANION GAP 2025-03-18 12:49 [facility] 5.0 (reji ng) (missing) TOTAL PROTEIN 2025-03-18 12:49 [facility] 6.1 g/dl As of January 2023 testing method has changed, this may include reference ranges. HGB - HEMOGLOBIN 2025-03-18 12:49 [facility] 6.8 g/dl Called to JORDYN Fong/SUJATHA/ED by Burt Echevarria M.T.(ASCP) at 1300 08/24/25. Read back(Y/N)? Y GFR - MDRD 2025-03-18 12:49 [facility] 68 (reji ng) The IDNV-traceable MDRD Study Equation has been validated extensively [...] older than 70. References: http://www.nkde p.nih.gov/lab-e valuation/gfr/c marinine-oxana ardization, last updated September 2011. CALCIUM 2025-03-18 12:49 [facility] 9.2 mg/dl As of January 2023 testing method has changed, this may include reference ranges. MEAN CORPUSCULAR VOLUME 2025-03-18 12:49 [facility] 96.9 fl (missing) DIFFERENTIAL COMMENT 2025-03-18 12:49 [facility] MANUAL DIFFERENTIAL (reji ng) (missing) Result panel 4 OCCULT BLOOD IN PAT. SINGLE 2025-03-18 13:05 [facility] 1ONE (missing) (missin g) OCCULT BLOOD IN PAT. SINGLE 2025-03-18 13:05 [facility] NEGREFERENCE RANGE: NEGATIVE (missing) (missing) OCCULT BLOOD IN PAT. SINGLE 2025-03-18 13:05 [facility] NO.CARDSNUMBER OF CARDS (missing) (missing) OCCULT BLOOD IN PAT. SINGLE 2025-03-18 13:05 [facility] OCCULTOCCULT BLOOD (missing) (missing) OCCULT BLOOD IN PAT. SINGLE 2025-03-18 13:05 [facility] PPOSITIVE (missing) (missin g) OCCULT BLOOD IN PAT. SINGLE 2025-03-18 13:05 [facility] RR.NEGRR.NEG (missing) (missin g) Result panel 5 BNP - B-NATRIURETIC PEPTIDE 2025-03-18 15:30 [facility] 403 pg/ml (missing) Result panel 6 RBC,URINE 2025-03-18 19:20 [facility] 0-5 /hpf (missing) UROBILINOGEN,URI NE 2025-03-18 19:20 [facility] 0.2 (NORMAL) e.u./dl (missing) SPECIFIC GRAVITY,URINE 2025-03-18 19:20 [facility] 1.015 (missing) (missing) WBC,URINE 2025-03-18 19:20 [facility] 6-10 /hpf (missing) PH,URINE 2025-03-18 19:20 [facility] 6.0 ph (missing) CLARITY,URINE 2025-03-18 19:20 [facility] HAZY (missing) (missing) SQUAMOUS EPITHELIAL CELL,UR 2025-03-18 19:20 [facility] MOD Squamous (missing) (missing) BACTERIA,URINE 2025-03-18 19:20 [facility] Moderate /hpf (missing) NITRITE,URINE 2025-03-18 19: [facility] NEGATIVE (missing) (missing) OCCULT BLOOD,URINE 2025-03-18 19:20 [facility] NEGATIVE (missing) (missing) BILIRUBIN,URINE 2025-03-18 19:20 [facility] NEGATIVE (missing) Bilirubin can be influenced by color interference. Please correlate positive results with clinical presentation GLUCOSE, URINE (UA) 2025-03-18 19: [facility] NEGATIVE mg/dl (missing) KETONES,URINE (UA) 2025-03-18 19: [facility] NEGATIVE mg/dl (missing) PROTEIN,URINE 2025-03-18 19:20 [facility] NEGATIVE mg/dl (missing) LEUKOCYTE ESTERASE, URINE 2025-03-18 19:20 [facility] TRACE (missing) (missing) COLOR,URINE 2025-03-18 19:20 [facility] YELLOW (missing) (missing) Result panel 7 UROBILINOGEN,URINE 2025-03-18 21:52 [facility] 0.2 (NORMAL) e.u./dl (missing) SPECIFIC GRAVITY,URINE 2025-03-18 21:52 [facility] 1.020 (missing) (missing) WBC,URINE 2025-03-18 21:52 [facility] 11-25 /hpf (missing) PH,URINE 2025-03-18 21:52 [email or web address] 5.0 ph (missing) CUL, URINE 2025-03-18 21:52 [email or web address] CXPCULTURE IN PROGRESS. RESULTS TO FOLLOW. (missing) (missing) SQUAMOUS EPITHELIAL CELL,UR 2025-03-18 21:52 [email or web address] FEW Squamous (missing) (missing) CLARITY,URINE 2025-03-18 21:52 [email or web address] HAZY (missing) (missing) UR CULTURE IF IND 2025-03-18 21:52 [email or web address] INDICATED (missing) (missing) LEUKOCYTE ESTERASE, URINE 2025-03-18 21:52 [email or web address] MODERATE (missing) (missing) BACTERIA,URINE 2025-03-18 21:52 [email or web address] Moderate /hpf (missing) NITRITE,URINE 2025-03-18 21:52 [email or web address] NEGATIVE (missing) (missing) OCCULT BLOOD,URINE 2025-03-18 21:52 [email or web address] NEGATIVE (missing) (missing) BILIRUBIN,URINE 2025-03-18 21:52 [email or web address] NEGATIVE (missing) Bilirubin can be influenced by color interference. Please correlate positive results with clinical presentation GLUCOSE, URINE (UA) 2025-03-18 21:52 [email or web address] NEGATIVE mg/dl (missing) KETONES,URINE (UA) 2025-03-18 21:52 [email or web address] NEGATIVE mg/dl (missing) CUL, URINE 2025-03-18 21:52 [facility] NGNo growth (missing) (missing) RBC,URINE 2025-03-18 21:52 [email or web address] None Seen /hpf (missing) PROTEIN,URINE 2025-03-18 21:52 [email or web address] TRACE mg/dl (missing) COLOR,URINE 2025-03-18 21:52 [email or web address] YELLOW (missing) URINE CLEAN CATCH Result panel 8 HCT - HEMATOCRIT 2025-03-18 22:02 [email or web address] 29.3 % (missing) HGB - HEMOGLOBIN 2025-03-18 22:02 [email or web address] 8.5 g /dl (missing) Result panel 9 HCT - HEMATOCRIT 2025-03-19 04:19 [facility] 28.0 % (missing) HGB - HEMOGLOBIN 2025-03-19 04:19 [facility] 8.1 g /dl (missing) Result panel 10 CREATININE 2025-03-19 08:20 [facility] 0.9 mg/dl As of January 2023 testing method has changed, this may include reference ranges. MEAN PLATELET VOLUME 2025-03-19 08:20 [facility] 10.1 fl (missing) CHLORIDE 2025-03-19 08:20 [facility] 100 mmol/l As of January 2023 testing method has changed, this may include reference ranges. GLUCOSE 2025-03-19 08:20 [facility] 122 mg/dl As of January 2023 testing method has changed, this may include reference ranges. SODIUM 2025-03-19 08:20 [facility] 139 mmol/l (missing) BUN - BLOOD UREA NITROGEN 2025-03-19 08:20 [facility] 17 mg/dl As of Jan testing method has changed, this may include reference ranges. RED CELL DISTRIBUTION WIDTH 2025-03-19 08:20 [facility] 19.0 % (mi ssing) MEAN CORPUSCULAR HEMOGLOBIN 2025-03-19 08:20 [facility] 26.5 pg (missing) WHITE BLOOD COUNT 2025-03-19 08:20 [facility] 27.2 x10 3/ul (missing) MEAN CORPUSCULAR HGB CONC 2025-03-19 08:20 [facility] 28.7 g/dl (missing) HCT - HEMATOCRIT 2025-03-19 08:20 [facility] 29.6 % (missing) PLT - PLATELET COUNT 2025-03-19 08:20 [facility] 293 10 3/ul (missing) RED BLOOD COUNT 2025-03-19 08:20 [facility] 3.21 10 6/ul (missing) CARBON DIOXIDE - CO2 2025-03-19 08:20 [facility] 31 mmol/l As of January 2023 testing method has changed, this may include reference ranges. POTASSIUM 2025-03-19 08:20 [facility] 4.1 mmol/l As of January 2023 testing method has changed, this may include reference ranges. GFR - MDRD 2025-03-19 08:20 [email or web address] 60 ([place]) The IDMS-traceable MDRD Study Equation has been [...] updated September 2011. ANION GAP 2025-03-19 08:20 [facility] 8.0 (missing ) (missing) HGB - HEMOGLOBIN 2025-03-19 08:20 [facility] 8.5 g /dl (missing) CALCIUM 2025-03-19 08:20 [facility] 9.3 mg/dl As of January 2023 testing method has changed, this may include reference ranges. MEAN CORPUSCULAR VOLUME 2025-03-19 08:20 [facility] 92.2 fl (missing) Result panel 11 CULTURE, BLOOD #1 2025-03-19 12:25 [facility] NG1D NO GROWTH AFTER 1 DAY (missing) (missing) CULTURE, BLOOD #1 2025-03-19 12:25 [facility] NG2D NO GROWTH AFTER 2 DAYS (missing) (missing) CULTURE, BLOOD #1 2025-03-19 12:25 [facility] NG5D NO GROWTH AFTER 5 DAYS (missing) (missing) Result panel 12 CULTURE, BLOOD #2 2025-03-19 12:31 [facility] NG1D NO GROWTH AFTER 1 DAY (missing) (missing) CULTURE, BLOOD #2 2025-03-19 12:31 [facility] NG2D NO GROWTH AFTER 2 DAYS (missing) (missing) CULTURE, BLOOD #2 2025-03-19 12:31 [facility] NG5D NO GROWTH AFTER 5 DAYS (missing) (missing) Result panel 13 CREATININE 2025-03-20 04:12 [facility] 0.8 mg/dl As of January 2023 testing method has changed, this may include reference ranges. MEAN PLATELET VOLUME 2025-03-20 04:12 [facility] 10.1 fl (missing) CHLORIDE 2025-03-20 04:12 [facility] 101 mmol/l As of January 2023 testing method has changed, this may include reference ranges. GLUCOSE 2025-03-20 04:12 [facility] 117 mg/dl As of January 2023 testing method has changed, this may include reference ranges. SODIUM 2025-03-20 04:12 [facility] 139 mmol/l (missing) BUN - BLOOD UREA NITROGEN 2025-03-20 04:12 [facility] 17 mg/dl As of Jan testing method has changed, this may include reference ranges. RED CELL DISTRIBUTION WIDTH 2025-03-20 04:12 [facility] 19.0 % (mi ssing) MAGNESIUM 2025-03-20 04:12 [facility] 2.1 mg/dl As of January 2023 testing method has changed, this may include reference ranges. RED BLOOD COUNT 2025-03-20 04:12 [facility] 2.84 10 6/ul (missing) WHITE BLOOD COUNT 2025-03-20 04:12 [facility] 20.0 x10 3/ul (missing) PLT - PLATELET COUNT 2025-03-20 04:12 [facility] 230 10 3/ul (missing) HCT - HEMATOCRIT 2025-03-20 04:12 [facility] 26.6 % (missing) MEAN CORPUSCULAR HEMOGLOBIN 2025-03-20 04:12 [facility] 26.8 pg (missing) MEAN CORPUSCULAR HGB CONC 2025-03-20 04:12 [facility] 28.6 g/dl (missing) CARBON DIOXIDE - CO2 2025-03-20 04:12 [facility] 32 mmol/l As of January 2023 testing method has changed, this may include reference ranges. POTASSIUM 2025-03-20 04:12 [facility] 4.0 mmol/l As of January 2023 testing method has changed, this may include reference ranges. ANION GAP 2025-03-20 04:12 [facility] 6.0 (missing ) (missing) GFR - MDRD 2025-03-20 04:12 [facility] 68 ([place]) The IDMS-traceable MDRD Study Equation has been [...] September 2011. HGB - HEMOGLOBIN 2025-03-20 04:12 [facility] 7.6 g /dl (missing) CALCIUM 2025-03-20 04:12 [facility] 8.7 mg/[facility] As of January 2023 testing method has changed, this may include reference ranges. MEAN CORPUSCULAR VOLUME 2025-03-20 04:12 [facility] 93.7 fl (missing) Result panel 14 MEAN PLATELET VOLUME 2025-03-20 15:12 [facility] 10.8 fl (missing) RED CELL DISTRIBUTION WIDTH 2025-03-20 15:12 [facility] 18.9 % (missing) WHITE BLOOD COUNT 2025-03-20 15:12 [facility] 23.5 x10 3/ul (missing) PLT - PLATELET COUNT 2025-03-20 15:12 [facility] 246 10 3/ul (missing) MEAN CORPUSCULAR HEMOGLOBIN 2025-03-20 15:12 [facility] 26.1 pg (missing) MEAN CORPUSCULAR HGB CONC 2025-03-20 15:12 [facility] 27 .9 g/dl (missing) HCT - HEMATOCRIT 2025-03-20 15:12 [facility] 29.0 % (missing) RED BLOOD COUNT 2025-03-20 15:12 [facility] 3.10 10 6/ul (missing) HGB - HEMOGLOBIN 2025-03-20 15:12 [facility] 8.1 g /dl (missing) MEAN CORPUSCULAR VOLUME 2025-03-20 15:12 [facility] 93.5 fl (missing) Result panel 15 CREATININE 2025-03-21 09:10 [facility] 1.0 mg/dl As of January 2023 testing method has changed, this may include reference ranges. MEAN PLATELET VOLUME 2025-03-21 09:10 [facility] 10.5 fl (missing) SODIUM 2025-03-21 09:10 [facility] 135 mmol/l (missing) GLUCOSE 2025-03-21 09:10 [facility] 162 mg/dl As of January 2023 testing method has changed, this may include reference ranges. RED CELL DISTRIBUTION WIDTH 2025-03-21 09:10 [facility] 18.4 % (mi ssing) BUN - BLOOD UREA NITROGEN 2025-03-21 09:10 [facility] 20 mg/dl As of Jan testing method has changed, this may include reference ranges. WHITE BLOOD COUNT 2025-03-21 09:10 [facility] 25.4 x10 3/ul (missing) PLT - PLATELET COUNT 2025-03-21 09:10 [facility] 259 10 3/ul (missing) MEAN CORPUSCULAR HEMOGLOBIN 2025-03-21 09:10 [facility] 26.9 pg (missing) HCT - HEMATOCRIT 2025-03-21 09:10 [facility] 28.2 % (missing) MEAN CORPUSCULAR HGB CONC 2025-03-21 09:10 [facility] 28.7 g/dl (missing) POTASSIUM 2025-03-21 09:10 [facility] 3.0 mmol/l As of January 2023 testing method has changed, this may include reference ranges. RED BLOOD COUNT 2025-03-21 09:10 [facility] 3.01 10 6/ul (missing) CARBON DIOXIDE - CO2 2025-03-21 09:10 [facility] 32 mmol/l As of January 2023 testing method has changed, this may include reference ranges. GFR - MDRD 2025-03-21 09:10 [facility] 53 (missin g) The IDMS-traceable MDRD Study [...] for patients older than 70. References: http://www.nkdep.n .gov/lab-evaluat ion/gfr/creatinine -stand ardization, last updated September 2011. ANION GAP 2025-03-21 09:10 [facility] 8.0 (missing ) (missing) HGB - HEMOGLOBIN 2025-03-21 09:10 [facility] 8.1 g /dl (missing) CALCIUM 2025-03-21 09:10 [facility] 8.7 mg/dl As of January 2023 testing method has changed, this may include reference ranges. MEAN CORPUSCULAR VOLUME 2025-03-21 09:10 [facility] 93.7 fl (missing) CHLORIDE 2025-03-21 09:10 [facility] 95 mmol/l As of January 2023 testing method has changed, this may include reference ranges. Result panel 16 TROPONIN I HIGH SENSITIVITY 2025-03-21 18:48 [facility] 11.4 ng/l A HIGH SE NSITIVITY TROPONIN result of >= 14.9 ng/L for females is considered POSITIVE. A HIGH SENSITIVITY TROPONIN result of >= 19.8 ng/L for males is considered POSITIVE. A HIGH SENSITIVITY TROPONIN result of >= 17.9 ng/L for unspecified is considered POSITIVE. Result panel 17 CREATININE 2025-03-22 05:39 [facility] 0.9 mg/dl As of January 2023 testing method has changed, this may include reference ranges. MEAN PLATELET VOLUME 2025-03-22 05:39 [facility] 10.3 fl (missing) SODIUM 2025-03-22 05:39 [facility] 137 mmol/l (missing) WHITE BLOOD COUNT 2025-03-22 05:39 [facility] 15.8 x10 3/ul (missing) RED CELL DISTRIBUTION WIDTH 2025-03-22 05:39 [facility] 18.1 % (mi ssing) MAGNESIUM 2025-03-22 05:39 [facility] 2.0 mg/dl As of January 2023 testing method has changed, this may include reference ranges. RED BLOOD COUNT 2025-03-22 05:39 [facility] 2.95 10 6/ul (missing) BUN - BLOOD UREA NITROGEN 2025-03-22 05:39 [facility] 20 mg/dl As of Jan testing method has changed, this may include reference ranges. PLT - PLATELET COUNT 2025-03-22 05:39 [facility] 219 10 3/ul (missing) MEAN CORPUSCULAR HEMOGLOBIN 2025-03-22 05:39 [facility] 26.4 pg (missing) HCT - HEMATOCRIT 2025-03-22 05:39 [facility] 27.8 % (missing) MEAN CORPUSCULAR HGB CONC 2025-03-22 05:39 [facility] 28.1 g/dl (missing) POTASSIUM 2025-03-22 05:39 [facility] 3.3 mmol/l As of January 2023 testing method has changed, this may include reference ranges. CARBON DIOXIDE - CO2 2025-03-22 05:39 [facility] 33 mmol/l As of January 2023 testing method has changed, this may include reference ranges. ANION GAP 2025-03-22 05:39 [facility] 5.0 (missing ) (missing) GFR - MDRD 2025-03-22 05:39 [facility] 60 (missin g) The IDNV-traceable MDRD Study Equation has been validated extensively [...] September 2011. HGB - HEMOGLOBIN 2025-03-22 05:39 [facility] 7.8 g /dl (missing) CALCIUM 2025-03-22 05:39 [facility] 8.6 mg/dl As of January 2023 testing method has changed, this may include reference ranges. GLUCOSE 2025-03-22 05:39 [facility] 93 mg/dl As of January 2023 testing method has changed, this may include reference ranges. MEAN CORPUSCULAR VOLUME 2025-03-22 05:39 [facility] 94.2 fl (missing) CHLORIDE 2025-03-22 05:39 [facility] 99 mmol/l As of January 2023 testing method has changed, this may include reference ranges. Result panel 18 FOLATE RBC 2025-04-11 13:16 [facility] >2006 ng/ml Performed at: [facility] [address], [place], [place] [id number] [employer] Supervisor: Teresa Simon MD, Phone: [phone] Performed at: [facility] [facility] [address], [place], [place] [id number] [employer] Supervisor: Tee Ibrahim MD, Phone: [phone] FOLATE HEMOLYSATE 2025-04-11 13:16 [facility] >620.0 [...] 13:16 [facility] 0.2 10 3/ul (missing) OSTCK-3-BHTDCOSU 2025-04-11 13:16 [facility] 0.4 g/dl (missing) TOSVX-3-XUXHHOMG 2025-04-11 13:16 [facility] 0.6 g/dl (missing) [...] [facility] 1.19 (missing ) Performed at: [address], [place], [place] [id number] [employer] Supervisor: Teresa Simon MD, Phone: [phone] LYMPHOCYTES # (AUTO) 2025-04-11 13:16 [facility] [...] reference ranges. WHITE BLOOD COUNT 2025-04-11 13:16 [facility] 11.3 x10 3/ul (missing) GLUCOSE 2025-04-11 13:16 [facility] 123 mg/dl As of January 2023 testing method has changed, this may include reference ranges. SODIUM 2025-04-11 13:16 [facility] 139 mmol/l Unknown IRON 2025-04-11 13:16 [facility] 144 ug/dl As of January 2023 testing method has changed, this may include reference ranges. ALT ALANINE AMINOTRANSFERASE 2025-04-11 13:16 [facility] 17 iu/l As of January 2023 testing method has changed, this may include reference ranges. BUN - BLOOD UREA NITROGEN 2025-04-11 13:16 [facility] 17 mg/dl As of January 2023 testing method has changed, this may include reference ranges. PLT - PLATELET COUNT 2025-04-11 13:16 [facility] 180 10 3/ul (missing) RED CELL DISTRIBUTION WIDTH 2025-04-11 13:16 [facility] 19.7 % (missing) BAND NEUTROPHILS % (MANUAL) 2025-04-11 13:16 [facility] 2 % (missing) GLOBULIN 2025-04-11 13:16 [facility] 2.7 g/dl (missing) ALBUMIN 2025-04-11 13:16 [facility] 2.9 g/dl (missing) TRANSFERRIN 2025-04-11 13:16 [facility] 243 mg/dl As of January 2023 testing method has changed, this may include reference ranges. MEAN CORPUSCULAR HEMOGLOBIN 2025-04-11 13:16 [facility] 25.8 pg (missing) IMMUNOGLOBULIN A (IGA) 2025-04-11 13:16 [facility] 255 mg/dl (missing) MEAN CORPUSCULAR HGB CONC 2025-04-11 13:16 [facility] 26.3 g/dl (missing) AST ASPARTATE AMINOTRANSFERASE 2025-04-11 13:16 [facility] 29 iu/l As of January 2023 testing method has changed, this may include reference ranges. RBC MORPHOLOGY (MULTIPLE) 2025-04-11 13:16 [facility] 3+ ANISOCYTOSIS (missing ) (missing) GLOBULIN TOTAL 2025-04-11 13:16 [facility] 3.1 g/dl (missing) RED BLOOD COUNT 2025-04-11 13:16 [facility] 3.26 10 6/ul (missing) ALBUMIN 2025-04-11 13:16 [facility] 3.7 g/dl As of January 2023 testing method has changed, this may include reference ranges. POTASSIUM 2025-04-11 13:16 [facility] 3.9 mmol/l As of January 2023 testing method has changed, this may include reference ranges. CARBON DIOXIDE - CO2 2025-04-11 13:16 [facility] 30 mmol/l As of January 2023 testing method has changed, this may include reference ranges. HEMATOCRIT 2025-04-11 13:16 [facility] 30.9 % (missing) HCT - HEMATOCRIT 2025-04-11 13:16 [facility] 31.9 % (missing) LDH - LACTATE DEHYDROGENASE 2025-04-11 13:16 [facility] 328 iu/l As of January 2023 testing method has changed, this may include reference ranges. LAMBDA FREE LT CHAINS SERUM 2025-04-11 13:16 [facility] 34.2 mg/l (missing) TOTAL IRON BINDING CAPACITY 2025-04-11 13:16 [facility] 340 ug/dl (missing) METAMYELOCYTES % (MANUAL) 2025-04-11 13:16 [facility] 4 % (missing) KAPPA FREE LT CHAINS SERUM 2025-04-11 13:16 [facility] 40.7 mg/l (missing) % IRON SATURATION 2025-04-11 13:16 [facility] 42 % (missing) FERRITIN 2025-04-11 13:16 [facility] 51.8 ng/ml (missing) GFR - MDRD 2025-04-11 13:16 [facility] 53 (missing ) The IDMS-traceable MDRD Study [...] September 2011. MYELOCYTES % (MANUAL) 2025-04-11 13:16 [facility] 6 % (missing) REACTIVE LYMPHS % (MANUAL) [...] 13:16 [facility] 69 mg/dl Performed at: [facility] [address], [place], [place] [id number] [employer] Supervisor: Tee Ibrahim MD, Phone: [phone] NEUTROPHILS # (MANUAL) 2025-04-11 13:16 [facility] [...] scan will follow via computer, mail, or venetian blind worker delivery. Performed at: [facility], [place], [place] [id number] [employer] Supervisor: Tee Ibrahim MD, Phone: [phone] Performed at: [facility] [address] [facility] [address], [place], [place] [id number] [employer] Supervisor: Teresa Simon MD, Phone: [phone] IMMUNOFIXATION SERUM 2025-04-11 13:16 [facility] Comment (missing ) The immunofixation pattern appears unremarkable. Evidence of monoclonal protein is not apparent. DIFFERENTIAL COMMENT 2025-04-11 13:16 [email or web address] MANUAL DIFFERENTIAL (missing ) (missing) M-SPIKE 2025-04-11 13:16 [email or web address] Not Observed g/dl (missing) Result panel 19 BAND NEUTROPHILS % (MANUAL) 2025-05-17 07:54 [facility] 100 (miss ing) (missing) GLUCOSE 2025-05-17 07:54 [facility] 100 mg/dl As of January 2023 testing method has changed, this may include reference ranges. CHLORIDE 2025-05-17 07:54 [facility] 101 mmol/ l As of January 2023 testing method has changed, this may include reference ranges. ALKALINE PHOSPHATASE 2025-05-17 07:54 [facility] 102 iu/l As of January 2023 testing method has changed, this may include reference ranges. SODIUM 2025-05-17 07:54 [facility] 140 mmol/ l (missing) WHITE BLOOD COUNT 2025-05-17 07:54 [facility] 15.9 x10 3/ul (missing) ALT ALANINE AMINOTRANSFERASE 2025-05-17 07:54 [facility] 18 iu/l As of January 2023 testing method has changed, this may include reference ranges. RED CELL DISTRIBUTION WIDTH 2025-05-17 07:54 [email or web address] 18.3 % (missing) NUCLEATED RBC (MANUAL) 2025-05-17 07:54 [facility] 2 % (missing) RBC MORPHOLOGY (MULTIPLE) 2025-05-17 07:54 [email or web address] 2+ STOMATOCYTES (miss ing) (missing) GLOBULIN 2025-05-17 07:54 [email or web address] 2.6 g/dl (missing) BUN - BLOOD UREA NITROGEN 2025-05-17 07:54 [facility] 21 mg/dl As of January 2023 testing method has changed, this may include reference ranges. MEAN CORPUSCULAR HEMOGLOBIN 2025-05-17 07:54 [email or web address] 25.4 pg (missing) MEAN CORPUSCULAR HGB CONC 2025-05-17 07:54 [facility] 27.4 g/dl (missing) METAMYELOCYTES % (MANUAL) 2025-05-17 07:54 [facility] 3 % (missing) RBC MORPHOLOGY (MULTIPLE) 2025-05-17 07:54 [facility] 3+ HYPOCHROMASIA (miss ing) (missing) POTASSIUM 2025-05-17 07:54 [facility] 3.4 mmol/ l As of January 2023 testing method has changed, this may include reference ranges. RED BLOOD COUNT 2025-05-17 07:54 [facility] 3.50 10 6/ul (missing) ALBUMIN 2025-05-17 07:54 [facility] 3.9 g/dl As of January 2023 testing method has changed, this may include reference ranges. AST ASPARTATE AMINOTRANSFERASE 2025-05-17 07:54 [facility] 30 iu/l As of January 2023 testing method has changed, this may include reference ranges. HCT - HEMATOCRIT 2025-05-17 07:54 [facility] 32.5 % (missing) CARBON DIOXIDE - CO2 2025-05-17 07:54 [facility] 35 mmol/ l As of January 2023 testing method has changed, this may include reference ranges. ANION GAP 2025-05-17 07:54 [facility] 4.0 ([facility]) (missing) LYMPHOCYTES # (MANUAL) 2025-05-17 07:54 [facility] 4.6 10 3/ul (missing) PLT - PLATELET COUNT 2025-05-17 07:54 [facility] 408 10 3/ul (missing) GFR - MDRD 2025-05-17 07:54 [facility] 47 ([facility]) The IDMS-traceable MDRD Study Equation has [...] updated September 2011. TOTAL PROTEIN 2025-05-17 07:54 [facility] 6.5 g/dl As of January 2023 testing method has changed, this may include reference ranges. MYELOCYTES % (MANUAL) 2025-05-17 07:54 [facility] 7 % (missing) NEUTROPHILS # (MANUAL) 2025-05-17 07:54 [facility] 8.3 10 3/ul (missing) HGB - HEMOGLOBIN 2025-05-17 07:54 [facility] 8.9 g/dl (missing) ABNORMAL LYMPHS % (MANUAL) 2025-05-17 07:54 [facility] 9 % (missing) CALCIUM 2025-05-17 07:54 [facility] 9.4 mg/dl As of January 2023 testing method has changed, this may include reference ranges. MEAN PLATELET VOLUME 2025-05-17 07:54 [facility] 9.5 fl (missing) MEAN CORPUSCULAR VOLUME 2025-05-17 07:54 [facility] 92.9 fl (missing) FLOW COMMENT 2025-05-17 07:54 [facility] Comment (miss ing) 1. The findings are [...] 20.5% Viability: 96.3% LEUKEMIA/LYMPHOMA COMMENT 2025-05-17 07:54 [facility] Comment (miss ing) Each antibody in this assay was utilized to assess for potential abnormalities of studied cell populations or to characterize identified abnormalities. This test was developed and its performance characteristics determined by [employer]. It has not been cleared or approved by the U.S. Food and Drug Administration. The FDA has determined that such clearance or approval is not necessary. This test is used for clinical purposes. It should not be regarded as investigational or for research. Performed at: [address] [id number] [employer] Supervisor: Tee Ibrahim MD, Phone: [phone] SPECIMEN TYPE 2025-05-17 07:54 [facility] Comment (miss ing) Peripheral Blood RESULTING PATH NAME 2025-05-17 07:54 [facility] Comment (miss ing) Reviewed by: Jam Song MD, Pathologist NPI- [id number] FLOW INTERPRETATION 2025-05-17 07:54 [facility] Comment (miss ing) SPECIMEN TYPE: Peripheral Blood FLOW INTERPRETATION: Increased myeloid blasts, 6.8% by flow cytometry, with mild immunophenotypic alterations, and granulocytes with left shift and multiple immunophenotypic aberrancies, see comments. No monotypic B-cells or aberrant T-cell population. INDICATIONS FOR STUDY 2025-05-17 07:54 [facility] Comment (miss ing) The following antigens were evaluated: CD2, CD3, CD4, CD5, CD7, CD8, CD10, CD11b, CD11c, CD13, CD14, CD15, CD16, CD19, CD20, CD22, CD23, CD33, CD34, CD38, CD45, CD56, CD57, CD64, CD103, CD117, [facility]-7, HLA-DR, kappa and lambda. DIFFERENTIAL COMMENT 2025-05-17 07:54 [facility] MANUAL DIFFERENTIAL (miss ing) (missing) PLATELET ESTIMATE, MANUAL 2025-05-17 07:54 [facility] NORMAL (130-450,000) (miss ing) (missing) PLATELET MORPHOLOGY 2025-05-17 07:54 [facility] NORMAL APPEARANCE (miss ing) (missing) CLINICAL INFORMATION 2025-05-17 07:54 [facility] TNP (miss ing) (missing) LAB 07:54 [facility] TNP (miss ing) (missing) Result panel 20 BASOPHILS # (MANUAL) 2025-05-18 23:42 [email or web address] 0.0 10 3/ul (missing) MONOCYTES # (MANUAL) 2025-05-18 23:42 [email or web address] 0.0 10 3/ul (missing) EOSINOPHILS # (MANUAL) 2025-05-18 23:42 [email or web address] 0.2 10 3/ul (missing) BAND NEUTROPHILS % (MANUAL) 2025-05-18 23:42 [facility] 1 % (missing) METAMYELOCYTES % (MANUAL) 2025-05-18 23:42 [email or web address] % (missing) RBC MORPHOLOGY (MULTIPLE) 2025-05-18 23:42 [facility] 1+ ANISOCYTOSIS (missing ) (missing) PLATELET MORPHOLOGY 2025-05-18 23:42 [email or web address] 1+ LARGE PLATELETS (missing ) (missing) RBC MORPHOLOGY (MULTIPLE) 2025-05-18 23:42 [facility] 1+ MICROCYTOSIS (missing ) (missing) WBC MORPHOLOGY (MULTIPLE) 2025-05-18 23:42 [facility] 1+AGRANULA (missing ) (missing) BILIRUBIN,TOTAL 2025-05-18 23:42 [facility] 1.0 mg/dl As of January 2023 testing method has changed, this may include reference ranges. CREATININE 2025-05-18 23:42 [facility] 1.0 mg/dl As of January 2023 testing method has changed, this may include reference ranges. ALBUMIN/GLOBULIN RATIO 2025-05-18 23:42 [facility] 1.7 (missing ) (missing) NUCLEATED RBC (MANUAL) 2025-05-18 23:42 [facility] 10 % (missing) MEAN PLATELET VOLUME 2025-05-18 23:42 [facility] 10.4 fl (missing) TOTAL CELLS COUNTED 2025-05-18 23:42 [facility] 100 (missing ) (missing) CHLORIDE 2025-05-18 23:42 [facility] 101 mmol/l As of January 2023 testing method has changed, this may include reference ranges. GLUCOSE 2025-05-18 23:42 [facility] 122 mg/dl As of January 2023 testing method has changed, this may include reference ranges. SODIUM 2025-05-18 23:42 [facility] 138 mmol/l (missing) NEUTROPHILS # (MANUAL) 2025-05-18 23:42 [facility] 14.6 10 3/ul (missing) ALT ALANINE AMINOTRANSFERASE 2025-05-18 23:42 [facility] 17 iu/l As of January 2023 testing method has changed, this may include reference ranges. RED CELL DISTRIBUTION WIDTH 2025-05-18 23:42 [facility] 18.1 % (missing) ABNORMAL LYMPHS % (MANUAL) 2025-05-18 23:42 [facility] 2 % (missing) RBC MORPHOLOGY (MULTIPLE) 2025-05-18 23:42 [facility] 2+ HYPOCHROMASIA (missing ) (missing) GLOBULIN 2025-05-18 23:42 [email or web address] 2.3 g/dl (missing) RED BLOOD COUNT 2025-05-18 23:42 [facility] 2.68 10 6/ul (missing) BNP - B-NATRIURETIC PEPTIDE 2025-05-18 23:42 [facility] 203 pg/ml (missing) WHITE BLOOD COUNT 2025-05-18 23:42 [facility] 22.1 x10 3/ul (missing) HCT - HEMATOCRIT 2025-05-18 23:42 [facility] 25.4 % (missing) MEAN CORPUSCULAR HEMOGLOBIN 2025-05-18 23:42 [facility] 25.7 pg (missing) MEAN CORPUSCULAR HGB CONC 2025-05-18 23:42 [facility] 27.2 g/dl (missing) POTASSIUM 2025-05-18 23:42 [facility] 3.4 mmol/l As of January 2023 testing method has changed, this may include reference ranges. ALBUMIN 2025-05-18 23:42 [facility] 3.9 g/dl As of January 2023 testing method has changed, this may include reference ranges. AST ASPARTATE AMINOTRANSFERASE 2025-05-18 23:42 [facility] 30 iu/l As of January 2023 testing method has changed, this may include reference ranges. CARBON DIOXIDE - CO2 2025-05-18 23:42 [facility] 30 mmol/l As of January 2023 testing method has changed, this may include reference ranges. PLT - PLATELET COUNT 2025-05-18 23:42 [facility] 361 10 3/ul (missing) LYMPHOCYTES # (MANUAL) 2025-05-18 23:42 [facility] 4.0 10 3/ul (missing) BUN - BLOOD UREA NITROGEN 2025-05-18 23:42 [facility] 43 mg/dl As of January 2023 testing method has changed, this may include reference ranges. GFR - MDRD 2025-05-18 23:42 [facility] 53 (missing ) The IDMS-traceable MDRD Study [...] valuation/gfr/c reatinine-stand ardization, last updated September 2011. PROMYELOCYTES % (MANUAL) 2025-05-18 23:42 [facility] 6 % (missing) TOTAL PROTEIN 2025-05-18 23:42 [facility] 6.2 g/dl As of January 2023 testing method has changed, this may include reference ranges. HGB - HEMOGLOBIN 2025-05-18 23:42 [facility] 6.9 g/dl Called to SERGIO Choudhary([employer] PANEL [employer]INTER) by Nicky Capone M.T.([facility]) at 2348 05/18/25. Read back(Y/N)?Y ANION GAP 2025-05-18 23:42 [facility] 7.0 (missing ) (missing) TROPONIN I HIGH SENSITIVITY 2025-05-18 23:42 [facility] 7.7 ng/l A HIGH SENSITIVITY TROPONIN result of >= 14.9 ng/L for females is considered POSITIVE. A HIGH SENSITIVITY TROPONIN result of >= 19.8 ng/L for males is considered POSITIVE. A HIGH SENSITIVITY TROPONIN result of >= 17.9 ng/L for unspecified is considered POSITIVE. MYELOCYTES % (MANUAL) 2025-05-18 23:42 [facility] 8 % (missing) ALKALINE PHOSPHATASE 2025-05-18 23:42 [facility] 80 iu/l As of January 2023 testing method has changed, this may include reference ranges. CALCIUM 2025-05-18 23[facility]42 [facility] As of January 2023 testing method has changed, this may include reference ranges. MEAN CORPUSCULAR VOLUME 2025-05-18 23:42 [facility] 94.8 fl (missing) DIFFERENTIAL COMMENT 2025-05-18 23:42 [facility] MANUAL DIFFERENTIAL (missing ) (missing) PLATELET ESTIMATE, MANUAL 2025-05-18 23:42 [facility] NORMAL (130-450,000) (missing ) (missing) Social History date description facility
[2025-05-19] MEDS: PANTOPRAZOLE 40 MG VIAL IVP STA ×2 (02:33→18:21)
--- NOTE | 2025-05-19 02:38 | HISTORY & PHYSICAL EXAMINATION ---
Chief Complaint Chief Complaint Chief Complaint: Dark coloured stool History of Present Illness History of Present Illness HPI Comment/Other: 84 y old female with PMH HTN, insomnia , PUD s/p EGD and clipping 2 days ago came with c/o dark colored stool. Pt also c/o abdominal discomfort in epigastric area. Denies hematemesis, fever, DEL TORO, cough, chest pain, SOB, symptoms Labs showed Hb 6.9, K 3.4, WBC 22 Chest X ray neg One unit of PRBC ordered by ER physician along with protonix iv As per ER physician ( Dr Kwon), he consulted with surgeon quality assurance consultant who rec admission under medicine Pt is admitted due to GI bleed and acute blood loss anemia Review of Systems Status of ROS: 10 or more systems reviewed and unremarkable except as noted in history and below PFSH Active Problems All Active Problems (Updated 05/19/25 @ 02:00 by Jorge L Johnston MD) Anemia (Chronic) GI bleed (Acute) Rectal bleeding (Acute) Healthcare maintenance (Acute) Hepatosplenomegaly (Acute) Chronic pain (Acute) Leukocytosis (Acute) Complicated UTI (urinary tract infection) (Acute) Anemia (Acute) Pneumonia (Acute) Hematoma (Acute) Cellulitis of hand (Acute) Chronic sinusitis (Acute) Cat scratch of hand (Acute) Medical History Medical History Implantable loop recorder present GI bleed Nausea vomiting and diarrhea Food poisoning Bronchitis, asthmatic Accidental fall Fracture of greater tuberosity of humerus Vomiting Hot flashes Anemia Generalized weakness Near syncope Dyspnea Urinary tract infection Dehydration Open wound of abdomen ISTAP type 1 skin tear of right forearm Open wound of right wrist Left leg cellulitis Shortness of breath Dizziness Gastrointestinal hemorrhage Anemia due to acute blood loss Venous stasis ulcer of left lower leg with edema of left lower leg Atrial fibrillation Non-pressure chronic ulcer of skin of other sites with fat layer exposed Esophageal varices determined by endoscopy Hyperlipidemia HTN (hypertension) ETOH abuse Hx of cholecystitis GI bleed due to NSAIDs Surgical History Surgical History History of vertebroplasty (~1979) T-[address] Leahy History of tonsillectomy and adenoidectomy History of bilateral cataract extraction History of appendectomy Family History Family History Sister Breast cancer Father CVA (cerebral vascular accident) Dementia Mother ALS (amyotrophic lateral sclerosis) Son Diabetes Social History Social History Smoking Status: Former smoker If you are a former smoker, when did you quit? (Date/Year): 07/26/2008 Number of Years Smoked: 65 How many cigarettes a day do you smoke? (20 cigarettes=1 Pk): 1 Do you dip or chew tobacco?: No Do you vape?: No Patient requests smoking cessation consult: No Initiate information on smoking cessation: No Living arrangement: At home (family in area ) Living Condition: Alone Level: Assisted Do you feel safe in your home environment?: Yes History of physical, verbal, emotional, or financial abuse?: No ETOH Use: None Frequency: Occasional Substance Use: denies use POLST Patient has POLST: No POLST CPR Status: Attempt Resuscitation (CPR) Level of Medical Intervention: Full Treatment Meds/Allgy Home Medications Ambulatory Orders Medication Instructions Recorded Confirmed atorvastatin 40 mg tablet (Lipitor) 80 mg PO HS 05/17/25 acetaminophen 500 mg tablet 1,000 mg PO TID 10/29/23 1 (Acetaminophen Extra Strength) amlodipine 5 mg tablet 5 mg PO DAILY 01/14/2405/17 ondansetron 4 mg disintegrating 4 mg translingual Q12H PRN Nausea 01/14/24 05/17/25 tablet / Vomiting multivitamin with folic acid 400 1 tab PO DAILYWM 12/2505/17/25 mcg tablet (Thera) furosemide 20 mg tablet (Lasix) 20 mg PO DAILY #14 tab s 01/14/25 05/17/25 gabapentin 100 mg capsule 400 mg PO QPM 02/15/2505/17 trazodone 50 mg tablet 100 mg PO QPM PRN Insomnia 0 02/15/25 05/17/25 metoprolol succinate 25 mg 12.5 mg PO DAILY 03/18/25 1 tablet,extended release 24 hr diphenoxylate-atropine 2.5 1 - 2 tab PO Q6H PRN diarrh ea 03/19/25 05/17/25 mg-0.025 mg tablet pantoprazole 40 mg tablet,delayed 40 mg PO BIDAC #60 t abs 03/21/25 05/17/25 release oxycodone 5 mg tablet 5 mg PO Q8H PRN pain #14 tab s 03/22/25 05/17/25 sodium sul 1.479 gram-potas ch See Rx Instructions PO PER PKG DIR 04/23/25 05/17/25 0.188 gram-magnes sul 0.225 gram bowel prep #1 kit tablet (Sutab) Held on 05/17/25. Instructions: not having colonoscopy apixaban 5 mg tablet (Eliquis) 5 mg PO BID 05/11/25 pantoprazole 40 mg tablet,delayed 40 mg PO QDAY #30 ta bs 05/17/25 release sucralfate 100 mg/mL oral 10 ml PO QID 30 days #1,200 mL 05/17/25 suspension (Carafate) Allergies Allergies Allergy/AdvReac Type Severity Reaction Status Date / Time clopidogrel bisulfate * Allergy Severe Rash Verified 05/18/25 23:25 (From Plavix) erythromycin base Allergy Mild Rash Verified 05/18/25 23:25 (Erythromycin Base) Penicillins Allergy Mild Rash Verified 05/18/25 23:25 spironolactone Allergy Mild Rash Verified 05/18/25 23:25 diazepam (From Valium) AdvReac Mild Anxiety Verified 05/18/25 23:25 Exam Exam Vital Signs: Vital Signs x48h Temp Pulse Pulse Resp BP BP Pulse Ox 05/19/25 02:19 36.5 C 99 14 114/62 97 05/19/25 02:00 36.5 C 98 15 97/74 95 05/19/25 01:33 36.6 C 88 14 109/59 L 98 05/18/25 23:23 36.6 C 92 15 121/64 95 Constitutional normal general appearance HENMT normocephalic Eyes PERRL Neck/C-Spine visual inspection normal Chest inspection of chest normal Respiratory breath sounds equal bilaterally Cardiovascular normal heart rate noted Gastrointestinal abdomen normal to inspection Extremities normal to inspection Neurology no focal motor deficit noted Psychiatry mental status grossly normal Skin skin color normal Conclusion/Plan Problem List (1) Anemia: Plan: A: GI bleeding Acute blood loss anemia Leukocytosis' Hypokalemia Dehydration HTN Insomnia H/O PUD s/p EGD and clipping two days ago Plan: Admit to med surg with tele NPO Start protonix 40 mg iv q12h Transfuse one unit of PRBC Monitor H/H As per ER physiciian ( Dr Kwon), he consulted surgeon quality assurance consultant for possible EGD in am Check UA, Blood cultures X 2 Start Rocephin emperically Replace K Start NS @ 100 cc/h DVT prophylaxic: SCD Full code Pt is admitted as inpatient as more than 2 midnight stay is expected Lab Results 05/18/25 23:42 05/18/25 23:42
[2025-05-19] MEDS: ONDANSETRON 4 MG/2 ML VIAL IVP PRN (06:18)
[2025-05-19] MEDS: SODIUM CHLORIDE 0.9% 1,000 ML IV SCH (06:21)
[2025-05-19 08:29] LABS: HCT - HEMATOCRIT 27.8 % (37.0-47.0); HGB - HEMOGLOBIN 7.8 g/dL (12.0-16.0); MEAN PLATELET VOLUME 9.8 fL (7.9-10.8); PLT - PLATELET COUNT 431.0 10^3/uL (130-450); RED CELL DISTRIBUTION WIDTH 17.5 % (12.0-15.0)
[2025-05-19 08:49] LABS: ALT ALANINE AMINOTRANSFERASE 18.0 IU/L (10-60); AST ASPARTATE AMINOTRANSFERASE 31.0 IU/L (10-42); BUN - BLOOD UREA NITROGEN 52.0 mg/dL (6-20); CARBON DIOXIDE - CO2 28.0 mmol/L (21-32); CREATININE 1.1 mg/dL (0.6-1.3); GFR - MDRD 47.0 (>89)
[2025-05-19] MEDS: cefTRIAXone 1 GM in SODIUM CHLORIDE 0.9% MINIBAG 100 ML IV SCH (09:11)
[2025-05-19] MEDS: PANTOPRAZOLE 40 MG VIAL IV SCH (09:12)
[2025-05-19] MEDS: SODIUM CHLORIDE FLUSH 0.9% 10 ML SYRINGE IVP SCH (09:12)
--- NOTE | 2025-05-19 11:26 | CONSULTATION NOTE ---
Referring Provider Name of Referring Provider:: Dr. Chandra Consult Date: 05/19/25 Chief Complaint Chief Complaint Chief Complaint: Dark stool History of Present Illness History Obtained From History obtained from: Patient History of Present Illness HPI Comment/Other: 84 y old female with PMH HTN, HLD, CAD, heart failure, COPD, atrial fibrillation (on Eliquis) and PUD s/p EGD with epi injection and clipping of 2 sites on 05/17 who presented to the ED on 05/19 with c/o dark colored stool. Pt also c/o abdominal discomfort in epigastric area. Denies hematemesis, fever, DEL TORO, cough, chest pain, SOB, symptoms. She was found in the ED to have Hgb of 6.9 from 8.9 prior to her endoscopy procedure. She was given 1U PRBC and then admitted to medicine. Hgb this morning with appropriate response to 7.8. She states that after her EGD she was unable to tow picker both the prescriptions that she was sent due to one being expensive. [facility] Active Problems All Active Problems (Updated 05/19/25 @ 02:00 by Jorge L Johnston MD) Anemia (Chronic) GI bleed (Acute) Rectal bleeding (Acute) Healthcare maintenance (Acute) Hepatosplenomegaly (Acute) Chronic pain (Acute) Leukocytosis (Acute) Complicated UTI (urinary tract infection) (Acute) Anemia (Acute) Pneumonia (Acute) Hematoma (Acute) Cellulitis of hand (Acute) Chronic sinusitis (Acute) Cat scratch of hand (Acute) Medical History Medical History Implantable loop recorder present GI bleed Nausea vomiting and diarrhea Food poisoning Bronchitis, asthmatic Accidental fall Fracture of greater tuberosity of humerus Vomiting Hot flashes Anemia Generalized weakness Near syncope Dyspnea Urinary tract infection Dehydration Open wound of abdomen ISTAP type 1 skin tear of right forearm Open wound of right wrist Left leg cellulitis Shortness of breath Dizziness Gastrointestinal hemorrhage Anemia due to acute blood loss Venous stasis ulcer of left lower leg with edema of left lower leg Atrial fibrillation Non-pressure chronic ulcer of skin of other sites with fat layer exposed Esophageal varices determined by endoscopy Hyperlipidemia HTN (hypertension) ETOH abuse Hx of cholecystitis GI bleed due to NSAIDs Surgical History Surgical History History of vertebroplasty (~1979) T-[address] Leahy History of tonsillectomy and adenoidectomy History of bilateral cataract extraction History of appendectomy Family History Family History Sister Breast cancer Father CVA (cerebral vascular accident) Dementia Mother ALS (amyotrophic lateral sclerosis) Son Diabetes Social History Social History Smoking Status: Former smoker If you are a former smoker, when did you quit? (Date/Year): 07/26/2008 Number of Years Smoked: 65 How many cigarettes a day do you smoke? (20 cigarettes=1 Pk): 1 Second hand tobacco smoke exposure: No Do you dip or chew tobacco?: No Do you vape?: No Patient requests smoking cessation consult: No Initiate information on smoking cessation: No Living arrangement: At home (family in area ) Living Condition: Alone Level: Independent Home Mobility Equipment: Wheeled walker Do you feel safe in your home environment?: Yes History of physical, verbal, emotional, or financial abuse?: No ETOH Use: None Frequency: Occasional Substance Use: denies use POLST Patient has POLST: No POLST CPR Status: Attempt Resuscitation (CPR) Level of Medical Intervention: Full Treatment Meds/Allgy Home Medications Ambulatory Orders Medication Instructions Recorded Confirmed atorvastatin 40 mg tablet (Lipitor) 80 mg PO HS 05/19/25 acetaminophen 500 mg tablet 1,000 mg PO TID PRN fever or pain 10/29/23 05/19/25 (Acetaminophen Extra Strength) amlodipine 5 mg tablet 5 mg PO DAILY 01/14/2405/19 ondansetron 4 mg disintegrating 4 mg translingual Q12H PRN Nausea 01/14/24 05/17/25 tablet / Vomiting multivitamin with folic acid 400 1 tab PO DAILYWM 12/2505/17/25 mcg tablet (Thera) furosemide 20 mg tablet (Lasix) 20 mg PO DAILY #14 tab s 01/14/25 05/19/25 gabapentin 100 mg capsule 400 mg PO QPM 02/15/2505/19 trazodone 50 mg tablet 100 mg PO QPM PRN Insomnia 0 02/15/25 05/17/25 metoprolol succinate 25 mg 12.5 mg PO DAILY 03/18/25 1 tablet,extended release 24 hr diphenoxylate-atropine 2.5 1 - 2 tab PO Q6H PRN diarrh ea 03/19/25 05/19/25 mg-0.025 mg tablet pantoprazole 40 mg tablet,delayed 40 mg PO BIDAC #60 t abs 03/21/25 05/17/25 release oxycodone 5 mg tablet 5 mg PO Q8H PRN pain #14 tab s 03/22/25 05/17/25 sodium sul 1.479 gram-potas ch See Rx Instructions PO PER PKG DIR 04/23/25 05/17/25 0.188 gram-magnes sul 0.225 gram bowel prep #1 kit tablet (Sutab) Held on 05/17/25. Instructions: not having colonoscopy apixaban 5 mg tablet (Eliquis) 5 mg PO BID 05/11/25 pantoprazole 40 mg tablet,delayed 40 mg PO QDAY #30 ta bs 05/17/25 release sucralfate 100 mg/mL oral 10 ml PO QID 30 days #1,200 mL 05/17/25 suspension (Carafate) Allergies Allergies Allergy/AdvReac Type Severity Reaction Status Date / Time clopidogrel bisulfate * Allergy Severe Rash Verified 05/18/25 23:25 (From Plavix) erythromycin base Allergy Mild Rash Verified 05/18/25 23:25 (Erythromycin Base) Penicillins Allergy Mild Rash Verified 05/18/25 23:25 spironolactone Allergy Mild Rash Verified 05/18/25 23:25 diazepam (From Valium) AdvReac Mild Anxiety Verified 05/18/25 23:25 Results Lab Results Lab results reviewed: Yes 05/19/25 08:15 05/19/25 08:15 Other Lab Results: Lab Results x24hrs 05/19/25 05/19/25 05/19/25 Range/Units 08:15 06:45 00:16 WBC 26.4 H (4.8-10.8) x10^3/uL RBC 3.02 L (4.20-5.40) 10^6/uL Hgb 7.8 L (12.0-16.0) g/dL Hct 27.8 L (37.0-47.0) % MCV 92.1 (81.0-99.0) fL MCH 25.8 L (27.0-31.0) pg MCHC 28.1 L (32.0-36.0) g/dL RDW 17.5 H (12.0-15.0) % Plt Count 431 (130-450) 10^3/uL MPV 9.8 (7.9-10.8) fL Neut # (Auto) Lymph # (Auto) Glades # (Auto) Eos # (Auto) Baso # (Auto) Absolute Nucleated RBC Total Counted Band Neuts % (Manual) (0 - 10) % Abnorm Lymph % (Manual) % Metamyelocytes % ( - 0) % Myelocytes % ( - 0) % Promyelocytes % ( - 0) % Nucleated RBC % Neutrophils # (Manual) (1.5-6.6) 10^3/uL Lymphocytes # (Manual) (1.5-3.5) 10^3/uL Monocytes # (Manual) (0.0-1.0) 10^3/uL Eosinophils # (Manual) (0-0.7) 10^3/uL Basophils # (Manual) (0-0.1) 10^3/uL Nucleated RBCs % Differential Comment WBC Morphology (NORMAL) Platelet Estimate (NORMAL) Platelet Morphology (NORMAL) RBC Morph Micro Appear (NORMAL) Sodium 141 (135-145) mmol/L Potassium 3.3 L (3.5-4.5) mmol/L Chloride 102 (101-111) mmol/L Carbon Dioxide 28 (21-32) mmol/L Anion Gap 11.0 (6-13) BUN 52 H (6-20) mg/dL Creatinine 1.1 (0.6-1.3) mg/dL Estimated GFR (MDRD) 47 L (>89) Glucose 142 H (74-104) mg/dL Lactic Acid 1.8 (0.5-2.2) mmol/L Calcium 9.4 (8.5-10.3) mg/dL Total Bilirubin 1.2 H (0.2-1.0) mg/dL AST 31 (10-42) IU/L ALT 18 (10-60) IU/L Alkaline Phosphatase 81 (42-121) IU/L Troponin I High Sens (2.3-14.8) ng/L B-Natriuretic Peptide (5-100) pg/mL Total Protein 6.5 (6.4-8.9) g/dL Albumin 4.1 (3.2-5.5) g/dL Globulin 2.4 (2.1-4.2) g/dL Albumin/Globulin Ratio 1.7 (1.0-2.2) Procalcitonin Immunoas 0.72 H (<0.5) ng/mL TSH 4.35 (0.34-5.60) uIU/mL Blood Type O POSITIVE Antibody Screen NEGATIVE Crossmatch IS Only See Detail 05/18/25 05/18/25 05/18/25 Range/Units 23:42 23:42 23:42 WBC 22.1 H (4.8-10.8) x10^3/uL RBC 2.68 L (4.20-5.40) 10^6/uL Hgb 6.9 L* (12.0-16.0) g/dL Hct 25.4 L (37.0-47.0) % MCV 94.8 (81.0-99.0) fL MCH 25.7 L (27.0-31.0) pg MCHC 27.2 L (32.0-36.0) g/dL RDW 18.1 H (12.0-15.0) % Plt Count 361 (130-450) 10^3/uL MPV 10.4 (7.9-10.8) fL Neut # (Auto) Not Reportable Lymph # (Auto) Not Reportable Glades # (Auto) Not Reportable Eos # (Auto) Not Reportable Baso # (Auto) Not Reportable Absolute Nucleated RBC Not Reportable Total Counted 100 Band Neuts % (Manual) 1 (0 - 10) % Abnorm Lymph % (Manual) 2 % Metamyelocytes % 1 H ( - 0) % Myelocytes % 8 H ( - 0) % Promyelocytes % 6 H ( - 0) % Nucleated RBC % Not Reportable Neutrophils # (Manual) 14.6 H (1.5-6.6) 10^3/uL Lymphocytes # (Manual) 4.0 H (1.5-3.5) 10^3/uL Monocytes # (Manual) 0.0 (0.0-1.0) 10^3/uL Eosinophils # (Manual) 0.2 (0-0.7) 10^3/uL Basophils # (Manual) 0.0 (0-0.1) 10^3/uL Nucleated RBCs 10 % Differential Comment MANUAL DIFFERENTIAL WBC Morphology 1+AGRANULA (NORMAL) Platelet Estimate NORMAL (130-450,000) (NORMAL) Platelet Morphology 1+ LARGE PLATELETS (NORMAL) RBC Morph Micro Appear 2+ HYPOCHROMASIA 1+ MICROCYTOSIS 1+ ANISOCYTOSIS (NORMAL) Sodium 138 (135-145) mmol/L Potassium 3.4 L (3.5-4.5) mmol/L Chloride 101 (101-111) mmol/L Carbon Dioxide 30 (21-32) mmol/L Anion Gap 7.0 (6-13) BUN 43 H (6-20) mg/dL Creatinine 1.0 (0.6-1.3) mg/dL Estimated GFR (MDRD) 53 L (>89) Glucose 122 H (74-104) mg/dL Lactic Acid (0.5-2.2) mmol/L Calcium 9.3 (8.5-10.3) mg/dL Total Bilirubin 1.0 (0.2-1.0) mg/dL AST 30 (10-42) IU/L ALT 17 (10-60) IU/L Alkaline Phosphatase 80 (42-121) IU/L Troponin I High Sens 7.7 (2.3-14.8) ng/L B-Natriuretic Peptide 203 H (5-100) pg/mL Total Protein 6.2 L (6.4-8.9) g/dL Albumin 3.9 (3.2-5.5) g/dL Globulin 2.3 (2.1-4.2) g/dL Albumin/Globulin Ratio 1.7 (1.0-2.2) Procalcitonin Immunoas (<0.5) ng/mL TSH (0.34-5.60) uIU/mL Blood Type Antibody Screen Crossmatch IS Only Diagnostic Imaging Results Diagnostic Imaging Results: positive Final report reviewed Review of Systems Status of ROS: 10 or more systems reviewed and unremarkable except as noted in history and below Exam Exam Vital Signs: Vital Signs x48h Temp Pulse Resp BP Pulse Ox 05/19/25 07:51 36.7 C 93 18 146/77 H 99 05/19/25 05:13 36.7 C 98 18 146/96 H 98 05/19/25 04:13 36.6 C 87 20 135/72 H 98 Constitutional normal general appearance and no apparent distress HENMT normocephalic and head/scalp atraumatic Eyes conjunctivae normal and no scleral icterus Neck/C-Spine visual inspection normal Respiratory normal respiratory effort Cardiovascular normal heart rate noted Gastrointestinal abdomen soft to palpation and nontender to palpation Neurology GCS 15 Psychiatry cooperative and affect normal Skin skin color normal Conclusion/Plan Problem List (1) Anemia: Plan: 84 y old female with PMH HTN, HLD, CAD, heart failure, COPD, atrial fibrillation (on Eliquis) and PUD s/p EGD with epi injection and clipping of 2 sites on 05/17 who presented to the ED on 05/19 with c/o dark colored stool and Hgb of 6.9 from 8.9 previously. Responded appropriately to PRBC and now 7.8. During her EGD she had active oozing ongoing during scope entry into the stomach from a small ulcer. This area bled throughout the procedure and required clip and injection of epi. She also had a biopsy site that bled requiring clip and injection of epi. If this had been ongoing for the days prior to her endoscopy it could explain her hgb drop. At this point her hgb has responded appropriately to her transfusion and I do not believe there is ongoing bleeding. Recommend continue protonix and carafate for ulcer disease and trend hgb. If continues to be stable then no further intervention needed, if she has another significant hgb drop will plan to repeat the EGD. - Continue protonix and carafate - Trend Hgb - Consider repeat EGD if hgb drops - Please ensure has RX for BID protonix and carafate on discharge - Rest of care per primary - Discussed with primary team (Dr. Chandra) and station captain surgeon (Dr. Montano) - Surgery will continue to follow Lab Results Lab results reviewed: Yes 05/19/25 08:15 05/19/25 08:15 Diagnostic Imaging Results Diagnostic Imaging Results: positive Final report reviewed
[2025-05-19] MEDS: METOPROLOL SUCCINATE 25 MG TABLET PO SCH (12:08)
[2025-05-19] MEDS: POTASSIUM CHLORIDE 20 MEQ TABLET PO ONE (12:18)
[2025-05-19 15:17] LABS: GLUCOSE, URINE (UA) NEGATIVE (NEGATIVE); KETONES,URINE (UA) NEGATIVE (NEGATIVE); OCCULT BLOOD,URINE TRACE-LYSED (NEGATIVE)
[2025-05-19 15:42] LABS: SQUAMOUS EPITHELIAL CELL,UR FEW Squamous (<= Few)
--- NOTE | 2025-05-19 15:42 | PHARMACY PROGRESS NOTE ---
Best Possible Medication History Admit Date and Time: 05/19/25 0205 Home Medications Medication Instructions Recorded Confirmed Type atorvastatin 40 mg tablet (Lipitor) 80 mg PO HS 05/19/25 History acetaminophen 500 mg tablet 1,000 mg PO TID PRN fever or pain 10/29/23 05/19/25 History (Acetaminophen Extra Strength) amlodipine 5 mg tablet 5 mg PO DAILY 01/14/2405/19 History ondansetron 4 mg disintegrating 4 mg translingual Q12H PRN Nausea 01/14/24 05/19/25 History tablet / Vomiting multivitamin with folic acid 400 1 tab PO DAILYWM 12/2505/19/25 Rx mcg tablet (Thera) furosemide 20 mg tablet (Lasix) 20 mg PO DAILY #14 tab s 01/14/25 05/19/25 Rx gabapentin 100 mg capsule 400 mg PO QPM 02/15/2505/19 History trazodone 50 mg tablet 100 mg PO QPM PRN Insomnia 0 02/15/25 05/19/25 History metoprolol succinate 25 mg 12.5 mg PO DAILY 03/18/25 1 History tablet,extended release 24 hr diphenoxylate-atropine 2.5 1 - 2 tab PO Q6H PRN diarrh ea 03/19/25 05/19/25 History mg-0.025 mg tablet pantoprazole 40 mg tablet,delayed 40 mg PO BIDAC #60 t abs 03/21/25 05/19/25 Rx release oxycodone 5 mg tablet 5 mg PO Q8H PRN pain #14 tab s 03/22/25 05/19/25 Rx sodium sul 1.479 gram-potas ch See Rx Instructions PO PER PKG DIR 04/23/25 05/17/25 Rx 0.188 gram-magnes sul 0.225 gram bowel prep #1 kit tablet (Sutab) Held on 05/17/25. Instructions: not having colonoscopy apixaban 5 mg tablet (Eliquis) 5 mg PO BID 05/11/25 History Processed by: Pharmacy Medications reviewed in ED?: No Medication History completed: Yes Patient Interview: Completed Secondary Source(s): Pharmacy records, Insurance records and Previous admit records [facility] Statement: As the person ultimately responsible for medication therapy, providers are able to order a medication from an existing home medication list in [facility] via the "Reconcile Routine" prior to Confirmation of that medication by shipping support clerk. Such practice is discouraged except when the physician, in their clinical judgment, deems that a medical need exists for a medication without regard to previous use.
[2025-05-19] MEDS: HYDROcod/ACETAM 5/325 MG TABLET PO PRN (16:15)
[2025-05-19] MEDS: GABAPENTIN 400 MG CAPSULE PO SCH (20:43)
[2025-05-19] MEDS: ATORVASTATIN 40 MG TABLET PO SCH (20:43)
[2025-05-19] MEDS: SUCRALFATE 1 GM/10 ML UDC PO SCH (21:50)
[2025-05-19] MEDS: ACETAMINOPHEN 325 MG TABLET PO PRN (22:05)
[2025-05-20] MEDS: SODIUM CHLORIDE FLUSH 0.9% 10 ML SYRINGE IVP PRN (04:18)
--- NOTE | 2025-05-20 07:39 | PROVIDER PROGRESS NOTE ---
Subjective Subjective Subjective: Patient is feeling a little better today. Her chronic back pain is acting up. She still has some mild shortness of breath, worsened with activity. She has not had a bowel movement so no blood in her stool. Denies any fevers or chills.She is having some abdominal pain which is intermittent. She states at home, she has high-volume diarrhea at all times. This has been ongoing for the last few years. She has never had a colonoscopy in the past. Current Medications Current Medications Current Medications: Current Medications Generic Name Dose Route Start Last Admin Trade Name Freq PRN Reason Stop Dose Admin Acetaminophen 650 mg 05/19/25 15:44 05/20/25 04:59 Acetaminophen 325 Mg Tablet PO 650 mg Q4HR PRN Administration Pain or Fever > 38C (100.4F) Al Hydroxide/Mg Hydroxide 30 ml 05/19/25 16:10 Mag Hydrox/Al Hydrox/Simeth 30 Ml Udc PO Q4HR PRN INDIGESTION Atorvastatin Calcium 80 mg 05/19/25 21:00 05/19/25 20:43 Atorvastatin 40 Mg Tablet PO 80 mg HS NELLY Administration Furosemide 20 mg 05/20/25 09:00 Furosemide 20 Mg Tablet PO DAILY NELLY Gabapentin 400 mg 05/19/25 21:00 05/19/25 20:43 Gabapentin 400 Mg Capsule PO 400 mg QPM NELLY Administration Ceftriaxone Sodium 1 gm/ 100 mls @ 200 mls/hr 05/19/25 09:00 05/19/25 11:31 Sodium Chloride IV Infused DAILY NELLY Infusion Metoprolol Succinate 12.5 mg 05/19/25 10:00 05/19/25 12:08 Metoprolol Succinate 25 Mg Tablet PO 12.5 mg DAILY NELLY Administration Multivitamins 1 tab 05/20/25 08:00 Multivitamin Tablet PO DAILYWM NELLY Ondansetron HCl 4 mg 05/19/25 05:52 05/20/25 04:17 Ondansetron 4 Mg/2 Ml Vial IVP 4 mg Q6HR PRN Administration Nausea / Vomiting Pantoprazole Sodium 40 mg 05/19/25 09:00 05/19/25 20:43 Pantoprazole 40 Mg Vial IV Not Given Q12H NELLY Sodium Chloride 10 ml 05/19/25 05:52 05/20/25 04:18 Sodium Chloride Flush 0.9% 10 Ml Syringe IVP 10 ml PRN PRN Administration NEEDED PER PROVIDER ORDERS Sodium Chloride 10 ml 05/19/25 09:00 05/19/25 23:36 Sodium Chloride Flush 0.9% 10 Ml Syringe IVP 10 ml 0100,0900,1700 NELLY Administration Sucralfate 1 gm 05/19/25 22:00 05/20/25 06:35 Sucralfate 1 Gm/10 Ml Udc PO 1 gm 0700,1100,1600,2200 NELLY Administration Objective Vital Signs/Intake & Output Reviewed Vital Signs: Yes Vital Signs: Vital Signs x48h Temp Pulse Resp BP Pulse Ox 05/20/25 04:46 98.1 F 84 20 123/68 96 Intake & Output: Intake & Output 05/17/25 05/18/25 05/19/25 05/20/25 23:59 23:59 23:59 23:59 Intake Total 2059 Output Total 600 / 600 Balance 1460 / 1460 Weight (kg) 64 kg 58.5 kg Objective General Appearance: positive No acute distress, Alert and Anxious Eyes Bilateral: positive Normal inspection, PERRL and EOMI ENT: positive ENT inspection nml, Pharynx nml and No signs of dehydration Neck: positive Nml inspection, Thyroid nml and No JVD Respiratory: positive Chest non-tender and No respiratory distress Cardiovascular: positive No murmur, No gallop and Irregularly irregular; negative Tachycardia or Systolic murmur Abdomen: positive Non-tender, No organomegaly and No distention; negative Guarding or Splenomegaly Back: positive Nml inspection; negative CVA tenderness (R) or CVA tenderness (L) Skin: positive Color nml, No rash, Warm and Dry Extremities: positive Non-tender, Full ROM, Nml appearance and Pedal edema (3+ to knee) Neurologic/Psychiatric: positive Oriented x3, Motor nml and Mood/affect nml Lab Results 05/20/25 08:57 05/20/25 08:57 Other Labs: Lab Results x24hrs 05/19/25 05/19/25 Range/Units 13:50 08:15 WBC 26.4 H (4.8-10.8) x10^3/uL RBC 3.02 L (4.20-5.40) 10^6/uL Hgb 7.8 L (12.0-16.0) g/dL Hct 27.8 L (37.0-47.0) % MCV 92.1 (81.0-99.0) fL MCH 25.8 L (27.0-31.0) pg MCHC 28.1 L (32.0-36.0) g/dL RDW 17.5 H (12.0-15.0) % Plt Count 431 (130-450) 10^3/uL MPV 9.8 (7.9-10.8) fL Sodium 141 (135-145) mmol/L Potassium 3.3 L (3.5-4.5) mmol/L Chloride 102 (101-111) mmol/L Carbon Dioxide 28 (21-32) mmol/L Anion Gap 11.0 (6-13) BUN 52 H (6-20) mg/dL Creatinine 1.1 (0.6-1.3) mg/dL Estimated GFR (MDRD) 47 L (>89) Glucose 142 H (74-104) mg/dL Calcium 9.4 (8.5-10.3) mg/dL Total Bilirubin 1.2 H (0.2-1.0) mg/dL AST 31 (10-42) IU/L ALT 18 (10-60) IU/L Alkaline Phosphatase 81 (42-121) IU/L Total Protein 6.5 (6.4-8.9) g/dL Albumin 4.1 (3.2-5.5) g/dL Globulin 2.4 (2.1-4.2) g/dL Albumin/Globulin Ratio 1.7 (1.0-2.2) Procalcitonin Immunoas 0.72 H (<0.5) ng/mL TSH 4.35 (0.34-5.60) uIU/mL Urine Color YELLOW Urine Clarity HAZY (CLEAR) Urine pH 6.0 (5.0-7.5) PH Ur Specific [place] 1.015 (1.002-1.030) Urine Protein NEGATIVE (NEGATIVE) mg/dL Urine Glucose (UA) NEGATIVE (NEGATIVE) mg/dL Urine Ketones NEGATIVE (NEGATIVE) mg/dL Urine Occult Blood TRACE-LYSED (NEGATIVE) Urine Nitrite NEGATIVE (NEGATIVE) Urine Bilirubin NEGATIVE (NEGATIVE) Urine Urobilinogen 0.2 (NORMAL) (NORMAL) E.U./dL Ur Leukocyte Esterase MODERATE H (NEGATIVE) Urine RBC 0-5 (0-5) /HPF Urine WBC 11-25 H (0-5) /HPF Ur Squamous Epith Cells FEW Squamous (<= Few) Urine Bacteria Moderate H (None Seen) /HPF Ur Microscopic Review INDICATED Urine Culture Comments INDICATED Assessment/Plan Problem List (1) Anemia: Qualifiers: Anemia type: unspecified type Qualified Code(s): D64.9 - Anemia, unspecified (2) Acute upper gastrointestinal bleeding: (3) Myelogenous leukemia: Impression: Patient presents with a hemoglobin of 6.9, improved to 7.8 after 1 unit of packed red blood cells. Now back down to 6.6. 1 unit of PRBCs has been ordered. Patient had an EGD done on 05/17this showed a small hiatal hernia, gastritis, oozing gastric ulcer with hemorrhage s/p clip placement, hemostatic clip in anterior wall of stomach following epinephrine injection after biopsy. General Surgery was consulted. Initially, anemia was attributed to acute blood loss. Plan was for repeat EGD to assess bleeding ulcers. This still may be playing a part in overall picture, and anemia is likely multifactorial. However, peripheral smear was reviewed, pathology report was received today. 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 First, I spoke with Michelle Ho, oncology [employer] who is on-call here. Patient does have a relationship with our oncologist here, and plan was for bone marrow biopsy in the outpatient setting as she has had persistent leukocytosis, anemia, nucleated red blood cells. She recommended speaking with oncologist at another facility that may offer induction chemotherapy. First, I spoke with Dr. Prajapati at [facility], as per patient preference. He recommended speaking with [facility] or [facility] as they have the capabilities to do induction chemotherapy inpatient. I then spoke with Dr. Rik Blanco, at [facility]. He does not think this patient needs urgent transfer for treatment. He does recommend a bone marrow biopsy, and then discussion with oncology here about outpatient follow-up and next steps. Likely because of her age, she will not be a candidate for induction chemotherapy. I spoke with radiology here, and they do have the capabilities of doing a bone marrow biopsy; there are no radiologists here today. Will touch base with them tomorrow about feasibility of doing this procedure. Qualifiers: Leukemia Active/Remission status: without remission Myeloid leukemia type: acute Qualified Code(s): C92.00 - Acute myeloblastic leukemia, not having achieved remission (4) CHF (congestive heart failure): Impression: Patient with a history of congestive heart failure - records were reviewed from 04/27/2025 EF was 60 to 65%, right and left atrium are severely dilated, and there is severe tricuspid regurgitation. Continue oral Lasix. Continue cardiac diet, daily intakes, strict ins and outs. Over the last few days, she has put out 700 cc of urine, then 1350, then 1000cc. Qualifiers: Heart failure chronicity: chronic Heart failure type: unspecified Q ualified Code(s): I50.9 - Heart failure, unspecified (5) Leukocytosis: Impression: Patient with persistent leukocytosis as above. Management as above. Likely do to underlying neoplastic process. Blood cultures were ordered. Tomorrow will be day 3/3 of Rocephin for UTI. Qualifiers: Leukocytosis type: unspecified Qualified Code(s): D72.829 - Elevated white blood cell count, unspecified (6) Shortness of breath: Impression: Likely multifactorial secondary to congestive heart failure exacerbation as well as anemia. Treatment as above. (7) Atrial fibrillation: Impression: Hold Eliquis at this time. Continue metoprolol. Qualifiers: Atrial fibrillation type: unspecified Qualified Code(s): I48.91 - Unspecified atrial fibrillation (8) Hyperlipidemia: Impression: Continue statin. Qualifiers: Hyperlipidemia type: unspecified Qualified Code(s): E78.5 - Hyperlipidemia, unspecified (9) HTN (hypertension): Impression: Hold antihypertensives in setting of active GI bleed. Qualifiers: Hypertension type: unspecified Qualified Code(s): I10 - Essential (primary) hypertension
[2025-05-20] MEDS: MULTIVITAMIN TABLET PO SCH (08:33)
[2025-05-20] MEDS: FUROSEMIDE 20 MG TABLET PO SCH (08:33)
[2025-05-20] MEDS: MAG HYDROX/AL HYDROX/SIMETH 30 ML UDC PO PRN (08:49)
[2025-05-20 09:04] LABS: HCT - HEMATOCRIT 24.4 % (37.0-47.0); MEAN PLATELET VOLUME 11.5 fL (7.9-10.8); PLT - PLATELET COUNT 320.0 10^3/uL (130-450); RED CELL DISTRIBUTION WIDTH 18.6 % (12.0-15.0)
[2025-05-20 09:08] LABS: HGB - HEMOGLOBIN 6.6 g/dL (12.0-16.0)
[2025-05-20 09:20] LABS: ALT ALANINE AMINOTRANSFERASE 19.0 IU/L (10-60); AST ASPARTATE AMINOTRANSFERASE 38.0 IU/L (10-42); BUN - BLOOD UREA NITROGEN 40.0 mg/dL (6-20); CARBON DIOXIDE - CO2 29.0 mmol/L (21-32); CREATININE 1.1 mg/dL (0.6-1.3); GFR - MDRD 47.0 (>89)
--- NOTE | 2025-05-20 11:17 | PROVIDER PROGRESS NOTE ---
Subjective General Admit Date: 05/19/25 Procedure Date: 05/17/25 Post Op Days: 3 Procedure Performed: EGD with clipping and injection of bleeding ulcer Review of Systems I did not perform a extensive review of systems today rather I did a extensive chart review finding the peripheral flow cytometry results. Exam Exam Vital Signs: Vital Signs x48h Temp Pulse Resp BP Pulse Ox 05/20/25 04:46 36.7 C 84 20 123/68 96 An targeted and observational examination was done today. General: 84-year old female, appears stated age, well developed, well nourished, pale HEENT: Normocephalic, atraumatic, extraocular movement intact, mucous membranes pink and moist, sclera anicteric and not injected Abdomen: Benign, no peritoneal findings Extremities: No gross neurovascular problem, no clubbing, or cyanosis Gait: No gross motor deficit Psychiatric: Alert and oriented to person place and time, asks and answers questions appropriately, mood and affect appropriate Impression/Plan Problem List (1) Anemia: (2) Myelogenous leukemia: Plan Review of the patient's peripheral flow cytometry shows increased myeloid blasts at 6.8 percent and it is stated that these findings are concerning for high- grade primary myeloid neoplasmevolving acute leukemia. This combined with the elevated free kappa and lambda chains to my mind makes leukemia the diagnosis. However, as a general surgeon this is not my area of expertise and I will defer to her oncologist Dr. Storey. With these findings I think that the patient's workup should and we will likely transition to treatment of her leukemia. With regards to the ulcer that had been clipped and injected by Dr. Riddle I would continue to maximize her antiulcer therapy and transfuse as necessary but would actively avoid a surgical intervention in the face of the above findings. Will follow as necessary as patient transitions to oncology. CPT 02177
--- NOTE | 2025-05-20 13:58 | ADVANCE CARE PLANNING NOTE ---
Advance Care Planning Planning Encounter Date: 05/20/25 Time: 15:53 Purpose: Establish goals of care, fill out POLST together. Parties in Attendance: Patient. Decisional Capacity of the Patient: Fully decisional. Diagnosis for Encounter (1) Anemia: Qualifiers: Anemia type: unspecified type Qualified Code(s): D64.9 - Anemia, unspecified Summary: Patient presents with a hemoglobin of 6.9, improved to 7.8 after 2 units of pRBCs. Patient had an EGD done on 05/17this showed a small hiatal hernia, gastritis, oozing gastric ulcer with hemorrhage s/p clip placement, hemostatic clip in anterior wall of stomach following epinephrine injection after biopsy. General Surgery was consulted. Initially, anemia was attributed to acute blood loss. Plan was for repeat EGD to assess bleeding ulcers. This still may be playing a part in overall picture, and anemia is likely multifactorial. However, peripheral smear was reviewed. 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 On 05/20, I spoke with Michelle Ho, oncology [employer]IE[employer] ENGINE[employer] who is on-call here. Patient does have a relationship with our oncologist here, and plan was for bone marrow biopsy in the outpatient setting as she has had persistent leukocytosis, anemia, nucleated red blood cells. She recommended speaking with oncologist at another facility that may offer induction chemotherapy. First, I spoke with Dr. Prajapati at [facility], as per patient preference. He recommended speaking with [facility] or [facility] as they have the capabilities to do induction chemotherapy inpatient. I then spoke with Dr. Rik Blanco, at [facility]. He does not think this patient needs urgent transfer for treatment. He does recommend a bone marrow biopsy, and then discussion with oncology here about outpatient follow-up and next steps. Likely because of her age, she will not be a candidate for induction chemotherapy. On 05/21, I spoke with our radiology team here, plan is for bone marrow biopsy inpatient. Will monitor closely after the fact, and then likely will be medically cleared for discharge on 05/22 with close follow-up with oncology. I have reached out to Dr. Storey, and awaiting callback. Encounter Additional Discussion: Patient is an 84-year-old female with a history of atrial fibrillation on Eliquis, worsening and persistent leukocytosis, and anemia. Early pathology suggests acute myelocytic anemia with increase in blasts. Patient states that she has lived a very full life. 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 She was twice, and her second about 5 years ago due to throat cancer. She currently lives with her daughter, son-in-law, grandchildren. She enjoys crocheting, reading. She is still mostly active, enjoys walks. We talked about her overall goals of care. She understands that she has underlying cardiac disease, and with her age, there may be limited chemotherapy options. She would like to have a conversation with her oncologist about what exactly the plan would be. She is very realistic with her goals. She would like to be a DO NOT RESUSCITATE. She is okay with medical treatment including ventilation, vasopressors if needed, IV fluids, antibiotics, etc. POLST completed. Code Status: Do Not Attempt Resuscitation Time spent on advance care plannin
[2025-05-20] MEDS: HYDROcod/ACETAM 5/325 MG TABLET PO PRN (14:03)
[2025-05-20] MEDS: oxyCODONE 5 MG TABLET PO PRN (16:46)
[2025-05-21 05:50] LABS: HCT - HEMATOCRIT 27.7 % (37.0-47.0); HGB - HEMOGLOBIN 7.8 g/dL (12.0-16.0); MEAN PLATELET VOLUME 10.6 fL (7.9-10.8); PLT - PLATELET COUNT 347.0 10^3/uL (130-450); RED CELL DISTRIBUTION WIDTH 19.2 % (12.0-15.0)
[2025-05-21 06:07] LABS: BUN - BLOOD UREA NITROGEN 33.0 mg/dL (6-20); CARBON DIOXIDE - CO2 29.0 mmol/L (21-32); CREATININE 1.1 mg/dL (0.6-1.3); GFR - MDRD 47.0 (>89)
[2025-05-21] MEDS ORDERED: LIDOCAINE-MPF 1% 5 ML VIAL ONE (08:56)
--- NOTE | 2025-05-21 09:24 | PROVIDER PROGRESS NOTE ---
Subjective Subjective Subjective: Patient is a 84-year-old female with a history of atrial fibrillation on Eliquis, gastric ulcerations s/p clipping recently who presented with generalized fatigue, 1 episode of dark stools. In the outpatient, she was getting worked up for her persistent leukocytosis and anemia. On 05/20 peripheral smear revealed findings concerning for primary myeloid neoplasm or evolving acute leukemia with 6.8% blasts. Plan is for bone marrow biopsy today, and then follow-up with oncology outpatient. Can likely discharge 05/22. Patient is feeling a little better today. Her chronic back pain is acting up but is improved with the oxycodone. She has not had a bowel movement so no blood in her stool. Denies any fevers or chills. She is having some abdominal pain which is intermittent. She states at home, she has high-volume diarrhea at all times. This has been ongoing for the last few years. She has never had a colonoscopy in the past. Yesterday, her daughter and herself are spoken with at length about this new diagnosis of possible AML, and she took the new well. She is unsure how aggressive she wants to be with treatment, but she knows she would like to talk with the oncologist about what the next episode look like, if she would even be a candidate for treatment, and how it would impact her quality of life. She is open to doing the bone marrow biopsy today, although she is nervous about it. See ACP discussion for further goals of care. Current Medications Current Medications Current Medications: Current Medications Generic Name Dose Route Start Last Admin Trade Name Freq PRN Reason Stop Dose Admin Acetaminophen 650 mg 05/19/25 15:44 05/20/25 19:04 Acetaminophen 325 Mg Tablet PO 650 mg Q4HR PRN Administration Pain or Fever > 38C (100.4F) Al Hydroxide/Mg Hydroxide 30 ml 05/19/25 16:10 05/20/25 08:49 Mag Hydrox/Al Hydrox/Simeth 30 Ml Udc PO 30 ml Q4HR PRN Administration INDIGESTION Atorvastatin Calcium 80 mg 05/19/25 21:00 05/20/25 21:08 Atorvastatin 40 Mg Tablet PO 80 mg HS NELLY Administration Furosemide 20 mg 05/20/25 09:00 05/21/25 07:50 Furosemide 20 Mg Tablet PO 20 mg DAILY NELLY Administration Gabapentin 400 mg 05/19/25 21:00 05/20/25 21:08 Gabapentin 400 Mg Capsule PO 400 mg QPM NELLY Administration Metoprolol Succinate 12.5 mg 05/19/25 10:00 05/21/25 07:50 Metoprolol Succinate 25 Mg Tablet PO 12.5 mg DAILY NELLY Administration Multivitamins 1 tab 05/20/25 08:00 05/21/25 07:50 Multivitamin Tablet PO 1 tab DAILYWM NELLY Administration Ondansetron HCl 4 mg 05/19/25 05:52 05/20/25 04:17 Ondansetron 4 Mg/2 Ml Vial IVP 4 mg Q6HR PRN Administration Nausea / Vomiting Oxycodone HCl 5 mg 05/20/25 15:15 05/21/25 07:50 Oxycodone 5 Mg Tablet PO 5 mg Q4HR PRN Administration Moderate Pain (Level 4-6) Pantoprazole Sodium 40 mg 05/19/25 09:00 05/21/25 07:49 Pantoprazole 40 Mg Vial IV 40 mg Q12H NELLY Administration Sodium Chloride 10 ml 05/19/25 05:52 05/20/25 04:18 Sodium Chloride Flush 0.9% 10 Ml Syringe IVP 10 ml PRN PRN Administration NEEDED PER PROVIDER ORDERS Sodium Chloride 10 ml 05/19/25 09:00 05/21/25 07:49 Sodium Chloride Flush 0.9% 10 Ml Syringe IVP 10 ml 0100,0900,1700 NELLY Administration Sucralfate 1 gm 05/19/25 22:00 05/21/25 07:11 Sucralfate 1 Gm/10 Ml Udc PO 1 gm 0700,1100,1600,2200 NELLY Administration Objective Vital Signs/Intake & Output Reviewed Vital Signs: Yes Vital Signs: Vital Signs x48h Temp Pulse Resp BP Pulse Ox 05/21/25 09:18 97.7 F 71 16 117/63 95 Intake & Output: Intake & Output 05/18/25 05/19/25 05/20/25 05/21/25 23:59 23:59 23:59 23:59 Intake Total 2059 / 2059 760 / 760 Output Total 600 / 600 Balance 1460 / 1460 760 / 760 Weight (kg) 64 kg 58.5 kg Objective General Appearance: positive No acute distress, Alert and Anxious Eyes Bilateral: positive Normal inspection, PERRL and EOMI ENT: positive ENT inspection nml, Pharynx nml and No signs of dehydration Neck: positive Nml inspection, Thyroid nml and No JVD Respiratory: positive Chest non-tender and No respiratory distress Cardiovascular: positive No murmur, No gallop and Irregularly irregular; negative Tachycardia or Systolic murmur Abdomen: positive Non-tender, No organomegaly and No distention; negative Guarding or Splenomegaly Back: positive Nml inspection; negative CVA tenderness (R) or CVA tenderness (L) Skin: positive Color nml, No rash, Warm and Dry Extremities: positive Non-tender, Full ROM, Nml appearance and Pedal edema (3+ to knee) Neurologic/Psychiatric: positive Oriented x3, Motor nml and Mood/affect nml Lab Results 05/21/25 05:36 05/21/25 05:36 Other Labs: Lab Results x24hrs 05/21/25 05/19/25 Range/Units 05:36 00:16 WBC 20.5 H (4.8-10.8) x10^3/uL RBC 2.95 L (4.20-5.40) 10^6/uL Hgb 7.8 L (12.0-16.0) g/dL Hct 27.7 L (37.0-47.0) % MCV 93.9 (81.0-99.0) fL MCH 26.4 L (27.0-31.0) pg MCHC 28.2 L (32.0-36.0) g/dL RDW 19.2 H (12.0-15.0) % Plt Count 347 (130-450) 10^3/uL MPV 10.6 (7.9-10.8) fL Sodium 140 (135-145) mmol/L Potassium 4.1 (3.5-4.5) mmol/L Chloride 105 (101-111) mmol/L Carbon Dioxide 29 (21-32) mmol/L Anion Gap 6.0 (6-13) BUN 33 H (6-20) mg/dL Creatinine 1.1 (0.6-1.3) mg/dL Estimated GFR (MDRD) 47 L (>89) Glucose 91 (74-104) mg/dL Calcium 9.3 (8.5-10.3) mg/dL Magnesium 2.2 (1.7-2.3) mg/dL Blood Type O POSITIVE Antibody Screen NEGATIVE Crossmatch IS Only See Detail Assessment/Plan Problem List (1) Anemia: Qualifiers: Anemia type: unspecified type Qualified Code(s): D64.9 - Anemia, unspecified (2) Acute upper gastrointestinal bleeding: (3) Myelogenous leukemia: Impression: Patient presents with a hemoglobin of 6.9, improved to 7.8 after 2 units of pRBCs. Patient had an EGD done on 05/17this showed a small hiatal hernia, gastritis, oozing gastric ulcer with hemorrhage s/p clip placement, hemostatic clip in anterior wall of stomach following epinephrine injection after biopsy. General Surgery was consulted. Initially, anemia was attributed to acute blood loss. Plan was for repeat EGD to assess bleeding ulcers. This still may be playing a part in overall picture, and anemia is likely multifactorial. However, peripheral smear was reviewed. 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 On 05/20, I spoke with Michelle Ho, oncology HELP DESK INTERN who is on-call here. Patient does have a relationship with our oncologist here, and plan was for bone marrow biopsy in the outpatient setting as she has had persistent leukocytosis, anemia, nucleated red blood cells. She recommended speaking with oncologist at another facility that may offer induction chemotherapy. First, I spoke with Dr. Prajapati at [facility], as per patient preference. He recommended speaking with [facility] or [facility] as they have the capabilities to do induction chemotherapy inpatient. I then spoke with Dr. Rik Blanco, at [facility]. He does not think this patient needs urgent transfer for treatment. He does recommend a bone marrow biopsy, and then discussion with oncology here about outpatient follow-up and next steps. Likely because of her age, she will not be a candidate for induction chemotherapy. On 05/21, I spoke with our radiology team here, plan is for bone marrow biopsy inpatient. Will monitor closely after the fact, and then likely will be medically cleared for discharge on 05/22 with close follow-up with oncology. I have reached out to Dr. Storey, and awaiting callback. Qualifiers: Myeloid leukemia type: acute Leukemia Active/Remission status: without remission Qualified Code(s): C92.00 - Acute myeloblastic leukemia, not having achieved remission (4) CHF (congestive heart failure): Impression: Well compensated at this time. Patient with a history of congestive heart failure - records were reviewed from 04/27/2025 EF was 60 to 65%, right and left atrium are severely dilated, and there is severe tricuspid regurgitation. Continue oral Lasix. Continue cardiac diet, daily intakes, strict ins and outs. Qualifiers: Heart failure chronicity: chronic Heart failure type: unspecified Q ualified Code(s): I50.9 - Heart failure, unspecified (5) Leukocytosis: Impression: Patient with persistent leukocytosis as above. Management as above. Likely do to underlying neoplastic process. Blood cultures were ordered, no growth to date. Received 3 days of IV Rocephin for possible UTI. Qualifiers: Leukocytosis type: unspecified Qualified Code(s): D72.829 - Elevated white blood cell count, unspecified (6) Shortness of breath: Impression: Resolved. Likely due to anemia. Treatment as above. (7) Atrial fibrillation: Impression: Hold Eliquis at this time. Likely indefinitely. She is already in talks with her brainer about possible Watchman procedure. Continue metoprolol. Qualifiers: Atrial fibrillation type: unspecified Qualified Code(s): I48.91 - Unspecified atrial fibrillation (8) Hyperlipidemia: Impression: Continue statin. Qualifiers: Hyperlipidemia type: unspecified Qualified Code(s): E78.5 - Hyperlipidemia, unspecified
[2025-05-21] MEDS: LIDOCAINE-MPF 1% 5 ML VIAL TD ONE (13:13)
[2025-05-21] MEDS ORDERED: HYDROmorphone 0.5 MG/0.5 ML SYRINGE IVP PRN (13:35)
--- NOTE | 2025-05-21 14:46 | CT Report ---
PROCEDURE: Bone Marrow Biopsy w/Asp Sedation analgesia for 0 minutes. 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 Informed written consent from the patient was obtained and placed in the chart. Continuous EKG and hemodynamic monitoring was started by trained personnel. For radiation dose reduction, the following was used: automated exposure control, adjustment of mA and/or kV according to patient size. The patient was brought to the CT suite and engraver ornamental design spiral CT imaging was performed with localization grid. The appropriate site for percutaneous access to the biopsy target was marked, was prepped and draped sterilely, and was infused with local anaesthesia. Under CT guidance, a bone marrow biopsy needle set was advanced to the biopsy target, and specimen(s) were obtained. The trocar and needle were then removed, and the patient was sent for post-procedure monitoring. radiology technologist was present during the procedure to process specimens. COMPARISON: CT abdomen and pelvis dated 03/21/2025 FINDINGS: Biopsy site: Left posterior ilium Needle: 11 gauge biopsy needle with introducer trocar. Number of passes: 1 Medications: 1% lidocaine for local anaesthesia. Conscious sedation was not performed secondary to patient medical history. Complications: None. IMPRESSION: Successful CT-guided marrow biopsy of left ilium. Reviewed by: Brennen Sanderson MD on 05/21/2025 2:42 PM PDT Approved by: Brennen Sanderson MD on 05/21/2025 2:42 PM PDT Station ID: [id number]
[2025-05-21] MEDS: HYDROmorphone 0.5 MG/0.5 ML SYRINGE IVP PRN (14:51)
--- NOTE | 2025-05-21 16:21 | Discharge Summary ---
"Discharge Summary Admit Date: 05/19/25 Discharge Date: 05/22/25 Discharging Provider: Dr. Uriel Julio Primary Care Provider: Dr. Dyllan Baugh Code Status: Do Not Attempt Resuscitation Discharge Facility Name: Home, self care DIAGNOSES Discharge Diagnoses with Status of Each Condition: Anemia, acute upper gastrointestinal bleedingm myelogenous leukemia Patient presented with a hemoglobin of 6.9, improved to 7.8 after 2 units of pRBCs. Patient had an EGD done on 05/17this showed a small hiatal hernia, gastritis, oozing gastric ulcer with hemorrhage s/p clip placement, hemostatic clip in anterior wall of stomach following epinephrine injection after biopsy. General Surgery was consulted. Initially, anemia was attributed to acute blood loss. Plan was for repeat EGD to assess bleeding ulcers. This still may be playing a part in overall picture, and anemia is likely multifactorial. However, peripheral smear was reviewed. 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 I spoke with Dr. Rik Blanco, at [facility], oncologist. He does not think this patient needs urgent transfer for treatment. He does recommend a bone marrow biopsy, and then discussion with oncology here about outpatient follow-up and next steps. Likely because of her age, she will not be a candidate for induction chemotherapy. Completed bone marrow biopsy inpatient. Has f/u with oncology on 06/06. CHF (congestive heart failure) Well compensated at this time. Patient with a history of congestive heart failure - records were reviewed from 04/27/2025 EF was 60 to 65%, right and left atrium are severely dilated, and there is severe tricuspid regurgitation. Continue oral Lasix. Continue cardiac diet, daily intakes, strict ins and outs. Leukocytosis Patient with persistent leukocytosis as above. Management as above. Likely do to underlying neoplastic process. Blood cultures were ordered, no growth to date. Received 3 days of IV Rocephin for possible UTI. Shortness of breath Resolved. Likely due to anemia. Treatment as above. Atrial fibrillation Hold Eliquis at this time. Likely indefinitely. 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 Continue metoprolol. Hyperlipidemia Continue statin. HPI History of Present Illness: Per Dr. Ana Manley: 84 y old female with PMH HTN, insomnia , PUD s/p EGD and clipping 2 days ago came with c/o dark colored stool. Pt also c/o abdominal discomfort in epigastric area. Denies hematemesis, fever, [place], cough, chest pain, SOB, symptoms Labs showed Hb 6.9, K 3.4, WBC 22 Chest X ray neg One unit of PRBC ordered by ER physician along with protonix iv As per ER physician ( Dr Kwon), he consulted with surgeon commissioned police officer who rec admission under medicine Pt is admitted due to GI bleed and acute blood loss anemia CONSULTS | PROCEDURES Consultations: General surgery, oncology Procedures: Bone marrow biopsycompleted 05/21. Chest x-ray05/19no acute cardiopulmonary process, cardiomegaly. HOSPITAL COURSE Hospital Course: Patient is a 84-year-old female with a history of atrial fibrillation on Eliquis, recent EGD with diagnosis of ulcers s/p clipping who presented with complaints of fatigue, as well as an episode of dark stool. Patient presented with a hemoglobin of 6.9, and this improved to 7.8 after 2 units of pRBCs. General Surgery was consulted. Initially, anemia was attributed to acute blood loss. Plan was for repeat EGD to assess bleeding ulcers. This still may be playing a part in overall picture, and anemia is likely multifactorial. However, peripheral smear was reviewed ([facility] pasted below for ease of access). 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 Dr. Chandra spoke with Dr. Rik Blanco, at [facility], oncologist. He does not think this patient needs urgent transfer for treatment. He does recommend a bone marrow biopsy, and then discussion with oncology here about outpatient follow-up and next steps. Likely because of her age, she will not be a candidate for induction chemotherapy. Completed bone marrow biopsy inpatient. Her hemoglobin is stable. Given her underlying neoplasm, she was given 1 additional unit of PRBC on day of discharge. Her hemoglobin prior to 1 unit of blood was 7.1. She will need close and continued follow-up with oncology and her primary care provider. She will be discharged home in stable condition. She was advised to continue her Protonix, and sucralfate was resent to the pharmacy (tabs, not suspension). Discussed extensively with the patient and her daughter that she should monitor for worsening symptoms of fatigue or if she has any acute blood loss she should contact her provider or return to the hospital. Overall, patient is realistic about her prognosis, but she wants to hear what options are available. She will meet with oncology, appointment is scheduled for 06/06. She may transition to a comfort focused approach if there are not reasonable therapy options. Her daughter is still coping with this information and is eager to hear about any possible treatment options. ALLERGIES Allergies Allergy/AdvReac Type Severity Reaction Status Date / Time clopidogrel bisulfate * Allergy Severe Rash Verified 05/18/25 23:25 (From Plavix) erythromycin base Allergy Mild Rash Verified 05/18/25 23:25 (Erythromycin Base) Penicillins Allergy Mild Rash Verified 05/18/25 23:25 spironolactone Allergy Mild Rash Verified 05/18/25 23:25 diazepam (From Valium) AdvReac Mild Anxiety Verified 05/18/25 23:25 MEDICATIONS Ambulatory Orders Medication Instructions Recorded Confirmed atorvastatin 40 mg tablet (Lipitor) 80 mg PO HS 05/19/25 acetaminophen 500 mg tablet 1,000 mg PO TID PRN fever or pain 10/29/23 05/19/25 (Acetaminophen Extra Strength) amlodipine 5 mg tablet 5 mg PO DAILY 01/14/2405/19 Held on 05/21/25. Instructions: Resume on 05/28/25. Hold until follow up PCP. Blood pressure normal to low while here. ondansetron 4 mg disintegrating 4 mg translingual Q12H PRN Nausea 01/14/24 05/19/25 tablet / Vomiting multivitamin with folic acid 400 1 tab PO DAILYWM 12/2505/19/25 mcg tablet (Thera) furosemide 20 mg tablet (Lasix) 20 mg PO DAILY #14 tab s 01/14/25 05/19/25 gabapentin 100 mg capsule 400 mg PO QPM 02/15/2505/19 trazodone 50 mg tablet 100 mg PO QPM PRN Insomnia 0 02/15/25 05/19/25 metoprolol succinate 25 mg 12.5 mg PO DAILY 03/18/25 1 tablet,extended release 24 hr diphenoxylate-atropine 2.5 1 - 2 tab PO Q6H PRN diarrh ea 03/19/25 05/19/25 mg-0.025 mg tablet pantoprazole 40 mg tablet,delayed 40 mg PO BIDAC #60 t abs 03/21/25 05/19/25 release oxycodone 5 mg tablet 5 mg PO Q8H PRN pain #14 tab s 03/22/25 05/19/25 apixaban 5 mg tablet (Eliquis) 5 mg PO BID 05/11/25 Held on 05/21/25. Instructions: Resume on 05/28/25. Hold likely indefinitely. sucralfate 1 gram tablet 1 g PO QACHS #120 tabs 05/21 acetaminophen 500 mg tablet 1,000 mg (2 x 500 mg) PO T ID #0 05/22/25 (Tylenol Extra Strength) tabs PHYSICAL EXAM AT DISCHARGE Vital Signs: Vital Signs x48h Temp Pulse Resp BP BP Pulse Ox 05/22/25 17:07 36.6 C 64 18 122/65 96 05/22/25 17:07 36.6 C 64 18 122/65 96 05/22/25 16:01 36.4 C L 76 18 120/66 98 05/22/25 15:31 36.4 C L 70 18 120/66 96 05/22/25 14:31 36.4 C L 18 110/62 95 Physical Exam Other/Comments: GEN: No acute distress, sitting upright. Doing a puzzle. HEENT: NC/AT, normal appearance of external ears and nose. Hearing baseline. Cardiac: Regular rate and rhythm, no murmurs. Pulm: Lungs CTA bilaterally, no cough, no wheezes. Normal effort on room air. Abdomen: Soft, nontender, nondistended. No rebound or guarding Extremities: Moves all 4 extremities equally. Normal tone. Senile purpura. Ecchymosis on bilateral upper extremities. Neuro: Face symmetric, CN II through XII intact grossly. Gait exam deferred Psych: Mood euthymic. Affect normal. Reasonable insight. LABS 05/22/25 04:58 05/22/25 04:58 Other Lab Results: LEUKEMIA/LYMPHO | | | | | FLOW INTERP | | Comment | | |. | SPECIMEN TYPE: Peripheral Blood | FLOW INTERPRETATION: | Increased myeloid blasts, 6.8% by flow cytometry, with mild | immunophenotypic alterations, and granulocytes with left | shift and multiple immunophenotypic aberrancies, see | comments. | No monotypic B-cells or aberrant T-cell population. FLOW COMMENT | | Comment | | |. | 1. The findings are concerning for a high-grade primary | myeloid neoplasm / evolving acute leukemia. Correlation with | the patient?s complete clinical history is recommended; and | assessment of a bone marrow specimen, with appropriate | genetic and molecular studies will be required for more | definitive evaluation. | 2. Peripheral blood evaluation demonstrated 2% blasts in a | background of left shifted granulocytes with dysplasia. | - | FLOW CYTOMETRY ANALYSIS: | CD34+ myeloid blasts: 6.8% with partial dim expression of | CD7, and CD56; mild drop in CD38; and normal expression of | CD34, CD117, HLA-DR, CD13, CD33, and dim CD45. | Granulocytes: 80.3% with left shift and partial aberrant | expression of CD56, mild dyssynchronous maturational | expression of CD13, and CD16; and loss of CD10. | Monocytes: 1.2% | Lymphocytes: 10.2% | - B-cells: 1.9% with normal kappa:lambda ratio of 1.0. | - T-cells: 73.8% with normal CD4:CD8 ratio of 2.5. | - NK-cells: 20.5% | Viability: 96.3% LAB CASE NUMBER | Test not performed | | |. CLINICAL INFO | Test not performed | | |. SPECIMEN TYPE | | Comment | | |. | Peripheral Blood RESULTING PATH | | Comment | | |. | Reviewed by: Jam Song MD, Pathologist | NPI- [id number] INDICATIONS | | Comment | | |. | The following antigens were evaluated: CD2, CD3, CD4, CD5, | CD7, CD8, CD10, CD11b, CD11c, CD13, CD14, CD15, CD16, CD19, | CD20, CD22, CD23, CD33, CD34, CD38, CD45, CD56, CD57, CD64, | CD103, CD117, FMC-7, HLA-DR, kappa and lambda. COMMENT | | Comment | | |. DIAGNOSTIC IMAGING Diagnostic Imaging Results: Final report reviewed and Read independently FOLLOW UP Follow Up: Follow up oncology scheduled for 06/06 Follow up PCP scheduled form 05/28 TIME SPENT Time Spent in Discharge (Minutes): 41 Discharge Plan Discharge Patient Disposition: 01 Home, Self Care Condition: Stable Medically Cleared Date:: 05/22/25 Prescriptions: New sucralfate 1 gram tablet 1 g PO QACHS Qty: 120 0RF acetaminophen [Tylenol Extra Strength] 500 mg Tablet 1,000 mg PO TID Qty: 0 0RF Continued atorvastatin [Lipitor] 40 MG tablet 80 mg PO HS trazodone 50 mg tablet 100 mg PO QPM PRN (Reason: Insomnia) gabapentin 100 mg capsule 400 mg PO QPM acetaminophen [Acetaminophen Extra Strength] 500 MG tablet 1,000 mg PO TID PRN (Reason: fever or pain) ondansetron 4 MG tablet,disintegrating 4 mg translingual Q12H PRN (Reason: Nausea / Vomiting) multivitamin with folic acid [Thera] 1 TAB tablet 1 tab PO DAILYWM 0RF furosemide [Lasix] 20 mg tablet 20 mg PO DAILY Qty: 14 0RF metoprolol succinate 25 mg tablet extended release 24 hr 12.5 mg PO DAILY Patient Comments: TAKE 1/2 TABLET BY MOUTH ONCE DAILY diphenoxylate-atropine 2.5-0.025 mg tablet 1 - 2 tab PO Q6H PRN (Reason: diarrhea) Patient Comments: TAKE 1 TO 2 TABLETS BY MOUTH EVERY SIX HOURS NEEDED, up to 8 tablets daily pantoprazole 40 mg Tablet,Delayed Release (Dr/Ec) 40 mg PO BIDAC Qty: 60 0RF oxycodone 5 mg tablet 5 mg PO Q8H PRN (Reason: pain) Qty: 14 0RF Held amlodipine 5 MG tablet 5 mg PO DAILY Hold Instructions: Resume on 05/28/25. Hold until follow up PCP. Blood pressure normal to low while here. Eliquis 5 mg tablet 5 mg PO BID Hold Instructions: Resume on 05/28/25. Hold likely indefinitely. Discontinued Sutab 1.479-0.188- 0.225 gram tablet See Rx Instructions PO PER PKG DIR Qty: 1 0RF Rx Instructions: PO PER PKG DIR Activity Restrictions: Activity as Tolerated Diet: Soft Health Concerns: You came in because you were feeling tired and fatigued after your recent EGD. Initially, there were concerns that you were bleeding from the ulcers that we know are in your stomach. Your blood levels were indeed very low, and you required transfusions. However, we got your pathology report back while you were here. This shows a possibility of you having a acute leukemia, or blood cancer. I spoke with an oncologist who recommended completing a bone marrow biopsy, which you received while you were here, and tolerated very well. You will need close follow up with your oncologist, Dr. Storey, for ongoing treatment. In the meantime, please adhere to the following: Following your bone marrow biopsy, you are having some pain. I recommend taking scheduled Tylenol, 2 extra strength Tylenol 3 times a day for the next 5 to 7 days. Avoid taking over 4000 mg of Tylenol in any 24-hour period, this is equivalent to 8 extra strength Tylenol. * You can take oral oxycodone as needed for any breakthrough pain. * I expect your pain to improve over the next 2 to 3 days following your procedure. Infection Prevention - Your immune system is weak, so you are at high risk for infections. - Wash your hands often and avoid people who are sick. - Avoid crowded places and wear a mask if you must go out. - Check your temperature twice a day. If you have a fever (100.4F/38C or higher), chills, or feel unwell, call your doctor or go to the emergency room right away. Bleeding Precautions You are at increased risk for bleeding. Given this, I recommend that we stop taking Eliquis at this time. Your risk of stroke is calculated over the course of a year. It is not trivial, but the risks of anticoagulation at this time likely outweigh the benefit. - Avoid activities that could cause injury or bruising. - Use a soft toothbrush and avoid flossing if your gums bleed. - If you notice unusual bruising, bleeding, blood in your urine or stool, or severe headaches, contact your doctor immediately. - Continue taking sucralfate for your stomach ulcers. Symptom Monitoring - Watch for new or worsening symptoms such as shortness of breath, chest pain, severe fatigue, confusion, or severe headaches. - Report any new symptoms to your healthcare team promptly. Blood Transfusions Please follow your symptoms, and if you are feeling more tired and fatigued you should have your hemoglobin levels checked to make sure you do not need another blood transfusion. You may need blood or platelet transfusions. These are safe and help manage symptoms of anemia or low platelets. When to Seek Emergency Care - Fever of 100.4F (38C) or higher. - Uncontrolled bleeding or severe bruising. - Trouble breathing or chest pain. - Severe headache, confusion, or vision changes. I know this is all happening very fast, but like you said, we will take this one day at a time. Please continue very close follow-up with your oncologist, as well as your primary care provider. We are glad you are feeling better, and that you have a great support system around you. Thank you for allowing us to take care of you. Print Language: Syriac Patient Instructions: Bone Marrow Aspiration and Biopsy Follow-up Care: Dyllan Baugh MD [Primary Care Provider, Internal Medicine] Cindy Storey MD [Provider Admit Priv/Credential, Oncology/Hematology] - 1 Week Vitals documented within 30 minutes of discharge?: Yes"
[2025-05-21] MEDS: PANTOPRAZOLE 40 MG TABLET PO SCH (20:47)
[2025-05-22 05:09] LABS: HCT - HEMATOCRIT 24.2 % (37.0-47.0); HGB - HEMOGLOBIN 7.1 g/dL (12.0-16.0); MEAN PLATELET VOLUME 10.2 fL (7.9-10.8); PLT - PLATELET COUNT 279.0 10^3/uL (130-450); RED CELL DISTRIBUTION WIDTH 19.3 % (12.0-15.0)
[2025-05-22 05:22] LABS: BUN - BLOOD UREA NITROGEN 27.0 mg/dL (6-20); CARBON DIOXIDE - CO2 30.0 mmol/L (21-32); CREATININE 1.0 mg/dL (0.6-1.3); GFR - MDRD 53.0 (>89)
[2025-05-22] MEDS: ACETAMINOPHEN 500 MG TABLET PO SCH (13:35)
[2025-05-22 17:08] VITALS: BP 122/65; TEMP 97.9; O2SAT 96
== END 2025-05-22 17:12 | disposition home or self-care (01) | DRG 811 ==
LOC: ED 23:15 → SUATTDRO 05-19 02:05 → MS3 05-19 02:05 → MS2 05-19 20:36
PROVIDERS: ADMIT Internal Medicine; ATTEND Student in an Organized Health Care Education/Training Program
DX: G47.00 Insomnia, unspecified; Z87.891 Personal history of nicotine dependence; E86.0 Dehydration; K25.4 Chronic or unspecified gastric ulcer with hemorrhage; K44.9 Diaphragmatic hernia without obstruction or gangrene; I50.9 Heart failure, unspecified; I07.1 Rheumatic tricuspid insufficiency; Z79.01 Long term (current) use of anticoagulants; K92.2 Gastrointestinal hemorrhage, unspecified; E87.6 Hypokalemia; I48.91 Unspecified atrial fibrillation; I11.0 Hypertensive heart disease with heart failure; D63.0 Anemia in neoplastic disease; D64.9 Anemia, unspecified; E78.5 Hyperlipidemia, unspecified; C92.00 Acute myeloblastic leukemia, not having achieved remission; D62 Acute posthemorrhagic anemia

== ENCOUNTER 2025-06-17 15:10 | Observation (INO) ==
--- NOTE | 2025-06-17 15:26 | ED Physician Documentation ---
PD HPI ABD PAIN Stated complaint Stated Complaint: SHARP PX, History obtained from History obtained from: Patient Meds/Allgy Home Medications Ambulatory Orders Medication Instructions Recorded Confirmed atorvastatin 40 mg tablet (Lipitor) 80 mg PO HS 06/14/25 amlodipine 5 mg tablet 5 mg PO DAILY 01/14/2406/14 Held on 05/21/25. Instructions: Resume on 05/28/25. Hold until follow up PCP. Blood pressure normal to low while here. ondansetron 4 mg disintegrating 4 mg translingual Q12H PRN Nausea 01/14/24 06/14/25 tablet / Vomiting multivitamin with folic acid 400 1 tab PO DAILYWM 12/2506/14/25 mcg tablet (Thera) furosemide 20 mg tablet (Lasix) 20 mg PO DAILY #14 tab s 01/14/25 06/14/25 gabapentin 100 mg capsule 200 mg PO QPM 02/15/2506/14 metoprolol succinate 25 mg 12.5 mg PO DAILY 03/18/25 1 08/14/24 tablet,extended release 24 hr diphenoxylate-atropine 2.5 1 - 2 tab PO Q6H PRN diarrh ea 03/19/25 06/14/25 mg-0.025 mg tablet apixaban 5 mg tablet (Eliquis) 5 mg PO BID 05/11/25 Held on 05/21/25. Instructions: Resume on 05/28/25. Hold likely indefinitely. cholecalciferol (vitamin D3) 25 2,000 unit PO DAILY 06/14/25 mcg (1,000 unit) capsule (Vitamin D3) ferrous sulfate 325 mg (65 mg 325 mg PO DAILY 06/14/25 06/14/25 iron) tablet (Feosol) lidocaine 5 % topical patch 1 patch topical DAILY PRN pain 06/14/25 06/14/25 morphine 30 mg capsule,extended 30 mg PO DAILY 5 06/14/25 release 24 hr multiphase (Avinza) oxycodone-acetaminophen 10 mg-325 1 - 2 tab PO Q6HR ME N pain 06/14/25 06/14/25 mg tablet pantoprazole 40 mg tablet,delayed 40 mg PO DAILY 06/1406/14/25 release temazepam 22.5 mg capsule 22.5 mg PO .qhs 06/14/25 Allergies Allergies Allergy/AdvReac Type Severity Reaction Status Date / Time clopidogrel bisulfate * Allergy Severe Rash Verified 06/14/25 11:51 (From Plavix) erythromycin base Allergy Mild Rash Verified 06/14/25 11:51 (Erythromycin Base) Penicillins Allergy Mild Rash Verified 06/14/25 11:51 spironolactone Allergy Mild Rash Verified 06/14/25 11:51 diazepam (From Valium) AdvReac Mild Anxiety Verified 06/14/25 11:51 PFSH Active Problems All Active Problems (Updated 06/06/25 @ 20:33 by Cindy Storey MD) Poor intravenous access (Acute) Encounter for antineoplastic chemotherapy (Acute) Gastric ulcer (Acute) Myelodysplastic syndrome with excess blasts-1 (Acute) Anemia (Chronic) Rectal bleeding (Acute) Healthcare maintenance (Acute) Hepatosplenomegaly (Acute) Chronic pain (Acute) Complicated UTI (urinary tract infection) (Acute) Anemia (Acute) Pneumonia (Acute) Hematoma (Acute) Cellulitis of hand (Acute) Chronic sinusitis (Acute) Cat scratch of hand (Acute) Medical History Medical History (Updated 06/06/25 @ 20:33 by Cindy Storey MD) Leukocytosis Implantable loop recorder present GI bleed Nausea vomiting and diarrhea Food poisoning Bronchitis, asthmatic Accidental fall Fracture of greater tuberosity of humerus Vomiting Hot flashes Anemia Generalized weakness Near syncope Dyspnea Urinary tract infection Dehydration Open wound of abdomen ISTAP type 1 skin tear of right forearm Open wound of right wrist Left leg cellulitis Shortness of breath Dizziness Gastrointestinal hemorrhage Anemia due to acute blood loss Venous stasis ulcer of left lower leg with edema of left lower leg Atrial fibrillation Non-pressure chronic ulcer of skin of other sites with fat layer exposed Esophageal varices determined by endoscopy Hyperlipidemia HTN (hypertension) ETOH abuse Hx of cholecystitis GI bleed due to NSAIDs Surgical History Surgical History History of vertebroplasty (~1979) T-[address] Leahy History of tonsillectomy and adenoidectomy History of bilateral cataract extraction History of appendectomy Family History Family History Sister Breast cancer Father CVA (cerebral vascular accident) Dementia Mother ALS (amyotrophic lateral sclerosis) Son Diabetes Social History Social History (Updated 06/14/25 @ 11:48 by Tabby Yoo RN) Smoking Status: Former smoker If you are a former smoker, when did you quit? (Date/Year): 07/26/2008 Number of Years Smoked: 65 How many cigarettes a day do you smoke? (20 cigarettes=1 Pk): 1 Second hand tobacco smoke exposure: No Do you dip or chew tobacco?: No Do you vape?: No Patient requests smoking cessation consult: No Initiate information on smoking cessation: No Living arrangement: At home (family in area ) Living Condition: Alone Level: Independent Do you feel safe in your home environment?: Yes History of physical, verbal, emotional, or financial abuse?: No ETOH Use: None Frequency: Occasional Substance Use: denies use POLST Patient has POLST: No POLST CPR Status: Attempt Resuscitation (CPR) Level of Medical Intervention: Full Treatment Results Vitals Vitals: Oxygen O2 Source Room air Discharge Plan Discharge Prescriptions: No Action atorvastatin [Lipitor] 40 MG tablet 80 mg PO HS gabapentin 100 mg capsule 200 mg PO QPM amlodipine 5 MG tablet 5 mg PO DAILY ondansetron 4 MG tablet,disintegrating 4 mg translingual Q12H PRN (Reason: Nausea / Vomiting) multivitamin with folic acid [Thera] 1 TAB tablet 1 tab PO DAILYWM 0RF furosemide [Lasix] 20 mg tablet 20 mg PO DAILY Qty: 14 0RF metoprolol succinate 25 mg tablet extended release 24 hr 12.5 mg PO DAILY Patient Comments: TAKE 1/2 TABLET BY MOUTH ONCE DAILY diphenoxylate-atropine 2.5-0.025 mg tablet 1 - 2 tab PO Q6H PRN (Reason: diarrhea) Patient Comments: TAKE 1 TO 2 TABLETS BY MOUTH EVERY SIX HOURS NEEDED, up to 8 tablets daily Eliquis 5 mg tablet 5 mg PO BID pantoprazole 40 mg Tablet,Delayed Release (Dr/Ec) 40 mg PO DAILY ferrous sulfate [Feosol] 325 mg (65 mg iron) tablet 325 mg PO DAILY lidocaine 5 % adhesive patch,medicated 1 patch topical DAILY PRN (Reason: pain) Rx Instructions: leave on most painful area for up to 12 hrs temazepam 22.5 mg capsule 22.5 mg PO .qhs morphine [Avinza] 30 mg capsule, ER multiphase 24 hr 30 mg PO DAILY oxycodone-acetaminophen 10-325 mg tablet 1 - 2 tab PO Q6HR PRN (Reason: pain) cholecalciferol (vitamin D3) [Vitamin D3] 25 mcg (1,000 unit) capsule 2,000 unit PO DAILY Print Language: Djiboutian
--- OUTSIDE RECORDS SUMMARY | 2025-06-17 15:38 | EXTERNAL MEDICAL SUMMARY RPT | Continuity of Care Document ---
Author Organization [place] Address [address] [address] Phone Problems date description facility 2025-03-14 14:02 Abscess of tendon sheath, right lower leg [facility] 2025-03-18 12:07 Abscess of tendon sheath, right lower leg [facility] 2025-03-19 08:35 Acute posthemorrhagic anemia [facility] 2025-03-19 08:35 Hyperlipidemia, unspecified [facility] 2025-03-19 08:35 Essential (primary) hypertensio n [facility] 2025-03-19 08:35 Unspecified atrial fibrillation [facility] 2025-03-19 08:35 Heart failure, unspecified [facility] 2025-03-19 08:35 Gastrointestinal hemorrhage, un specified [facility] 2025-03-19 08:35 Shortness of breath [facility] 2025-03-21 09:44 Acute posthemorrhagic anemia [facility] 2025-03-21 09:44 Elevated white blood cell count , unspecified [facility] 2025-03-21 09:44 Hyperlipidemia, unspecified [facility] 2025-03-21 09:44 Essential (primary) hypertensio n [facility] 2025-03-21 09:44 Unspecified atrial fibrillation [facility] 2025-03-21 09:44 Heart failure, unspecified [facility] 2025-03-21 09:44 Gastrointestinal hemorrhage, un specified [facility] 2025-03-21 09:44 Shortness of breath [facility] 2025-03-21 12:05 Acute posthemorrhagic anemia [facility] 2025-03-21 12:05 Elevated white blood cell count , unspecified [facility] 2025-03-21 12:05 Hyperlipidemia, unspecified [facility] 2025-03-21 12:05 [facility] 12:05 Unspecified atrial fibrillation [facility] 2025-03-21 12:05 Heart failure, unspecified id [facility] 2025-03-21 12:05 Gastrointestinal hemorrhage, un specified [facility] 2025-03-21 12:05 Shortness of breath [facility] 2025-03-21 12:06 Acute posthemorrhagic anemia [facility] 2025-03-21 12:06 Elevated white blood cell count , unspecified [facility] 2025-03-21 12:06 Hyperlipidemia, unspecified [facility] 2025-03-21 12:06 Essential (primary) [facility]ensio n [facility] 2025-[facility]-21 12:06 Unspecified atrial fibrillation [facility] 2025-03-21 12:06 Heart failure, unspecified [facility] 2025-03-21 12:06 Gastrointestinal hemorrhage, un specified [facility] 2025-03-21 12:06 [facility]ness [facility] breath [facility] 2025-03-22 12:48 [facility]hemorrhagic [facility] 2025-03-22 12:48 Elevated white blood cell count , unspecified [facility] 2025-03-22 12:48 Hyperlipidemia, unspecified [facility] 2025-03-22 12:48 Essential (primary) hypertensio n [facility] 2025-03-22 12:48 Unspecified atrial fibrillation [facility] 2025-03-22 12:48 Heart failure, unspecified [facility] 2025-03-22 12:48 Gastrointestinal hemorrhage, un specified [facility] 2025-03-22 12:48 Shortness of breath [facility] 2025-03-22 13:33 [facility]orrh[facility]25-[facility]-22 13:33 Elevated white blood cell count , unspecified [facility] 2025-03-22 13:33 Hyperlipidemia, unspecified [facility] 2025-03-22 13:33 Essential (primary) hypertensio n [facility] 2025-03-22 13:33 Unspecified atrial fibrillation [facility] 2025-03-22 13:33 Heart failure, unspecified id [facility] 2025-03-22 13:33 Gastrointestinal hemorrhage, un specified [facility] 2025-03-22 13:33 Shortness of breath [facility] 2025-03-22 14:47 Acute posthemorrhagic anemia [facility] 2025-03-22 14:47 Elevated white blood cell count , unspecified [facility] 2025-03-22 14:47 Hyperlipidemia, unspecified i [facility] 2025-03-22 14:47 Essential (primary) hypertensio n [facility] 2025-03-22 14:47 Unspecified atrial fibrillation [facility] 2025-03-22 14:47 Heart failure, unspecified [facility] 2025-03-22 14:47 Gastrointestinal hemorrhage, un specified [facility] 2025-03-22 14:47 [facility]ness of breath [facility]25-[facility]-11 11:58 Abscess of tendon sheath, right lower leg [facility] 2025-04-11 11:59 Abscess of tendon sheath, right lower leg [facility] 2025-04-11 12:00 Abscess of tendon sheath, right lower leg [facility] 2025-04-11 12:06 Abscess of tendon sheath, right lower leg [facility] 2025-04-11 13:02 Anemia, unspecified [facility] 2025-04-11 13:02 Elevated white blood cell count , unspecified [facility] 2025-04-11 13:02 Hepatomegaly with sp lenomegaly, not elsewhere classified [facility] 2025-04-12 00:05 Anemia, unspecified [facility] 2025-04-12 06:59 Anemia, unspecified [facility] 2025-04-12 06:59 Elevated white blood cell count , unspecified [facility] 2025-04-12 06:59 Hepatomegaly with sp lenomegaly, not elsewhere classified [facility] 2025-04-12 08:13 Anemia, unspecified [facility] 2025-04-12 08:56 Acute posthemorrhagic anemia [facility] 2025-04-12 08:56 Anemia, unspecified [facility] 2025-04-12 08:56 Elevated white blood cell count , unspecified [facility] 2025-04-12 08:56 Hyperlipidemia, unspecified i [facility] 2025-04-12 08:56 Other chronic pain [facility] 2025-04-12 08:56 Essential (primary) hypertensio n [facility] 2025-04-12 08:56 Unspecified atrial fibrillation [facility] 2025-04-12 08:56 Heart failure, unspecified [facility] 2025-04-12 08:56 Pneumonia, unspecified organism [facility] 2025-04-12 08:56 Gastrointestinal hemorrhage, un specified [facility] 2025-04-12 08:56 Pain in left knee [facility] 2025-04-12 08:56 Pain in left leg [facility] 2025-04-12 08:56 Shortness of breath [facility] 2025-04-12 08:56 Other specified symp toms and signs involving the circulatory and respiratory systems [facility] 2025-04-12 08:56 Hepatomegaly with sp lenomegaly, not elsewhere classified [facility] 2025-04-12 08:56 Other fecal abnormalities [facility] 2025-04-12 08:56 Weakness [facility] 2025-04-12 08:56 Other fatigue [facility] 2025-04-12 08:56 Laceration without f oreign body of right hand, initial encounter [facility] 2025-04-12 08:56 Unspecified injury of left hip, initial encounter [facility] 2025-04-12 08:57 Acute posthemorrhagic anemia [facility] 2025-04-12 08:57 Anemia, unspecified [facility] 2025-04-12 08:57 Elevated white blood cell count , unspecified [facility] 2025-04-12 08:57 Hyperlipidemia, unspecified [facility] 2025-04-12 08:57 Other chronic pain [facility] 2025-04-12 08:57 Essential (primary) hypertensio n [facility] 2025-04-12 08:57 Unspecified atrial fibrillation [facility] 2025-04-12 08:57 Heart failure, unspecified [facility] 2025-04-12 08:57 Pneumonia, unspecified organism [facility] 2025-04-12 08:57 Gastrointestinal hemorrhage, un specified [facility] 2025-04-12 08:57 [facility] 08:57 Pain in left leg [facility] 2025-04-12 08:57 Shortness of breath [facility] 2025-04-12 08:57 Other specified symp toms and signs involving the circulatory and respiratory systems [facility] 2025-04-12 08:57 Hepatomegaly with sp lenomegaly, not elsewhere classified [facility] 2025-04-12 08:57 Other fecal abnormalities [facility] 2025-04-12 08:57 Weakness [facility] 2025-04-12 08:57 Other fatigue [facility] 2025-04-12 08:57 Laceration without f oreign body of right hand, initial encounter [facility] 2025-04-12 08:57 Unspecified injury of left hip, initial encounter [facility] 2025-04-16 13:26 Anemia, unspecified cassidyy [facility] 2025-05-04 13:46 Anemia, unspecified [employer]y [facility] 2025-05-05 00:01 Anemia, unspecified [facility] 2025-05-05 00:01 Elevated white blood cell count , [facility] 2025-05-05 00:01 Hepatomegaly with sp lenomegaly, not elsewhere classified [facility] 2025-05-08 16:17 Anemia, unspecified [facility] 2025-05-08 16:17 Elevated white blood cell count , unspecified [facility] 2025-05-08 16:17 Hepatomegaly with sp lenomegaly, not elsewhere classified [facility] 2025-05-17 07:48 Anemia, unspecified [facility] 2025-05-17 07:48 Elevated white blood cell count , unspecified [facility] 2025-05-17 08:23 Anemia, unspecified [facility] 2025-05-17 08:23 Elevated white blood cell count , unspecified [facility] 2025-05-18 00:03 Anemia, unspecified [facility] 2025-05-18 00:03 Elevated white blood cell count , unspecified [facility] 2025-05-18 10:58 Elevated white blood cell count , unspecified [facility] 2025-05-18 23:25 Elevated white blood cell count , unspecified [facility] 2025-05-19 02:26 Anemia, unspecified [facility] 2025-05-19 03:30 Anemia, unspecified [facility] 2025-05-19 12:48 Anemia, unspecified [facility] 2025-05-19 20:36 Anemia, unspecified [facility] 2025-05-21 07:31 Acute myeloblastic l eukemia, not having achieved remission [employer] 2025-05-21 07:31 Myeloid leukemia, un specified, not having achieved remission [employer] 2025-05-21 07:31 Anemia, unspecified [facility] 2025-05-21 07:31 Elevated white blood cell count , unspecified [facility]25-[facility]-21 07:31 Hyperlipidemia, unspecified [facility] 2025-05-21 07:31 Essential (primary) hypertensio n [facility] 2025-[facility]-21 07:31 Unspecified atrial fibrillation [facility] 2025-05-21 07:31 Heart failure, unspecified [employer] [facility] [employer] 2025-05-21 07:31 Gastrointestinal hemorrhage, un specified [facility] 2025-05-21 07:31 Shortness of breath [facility] 2025-05-21 16:21 Acute myeloblastic l eukemia, not having achieved remission [facility] 2025-05-21 16:21 Myeloid leukemia, un specified, not having achieved remission [employer] 2025-05-21 16:21 Anemia, unspecified [facility] 2025-05-21 16:21 Elevated white blood cell count , unspecified [facility] 2025-05-21 16:21 [facility], [facility]-21 16:21 Essential (primary) hypertensio n [facility] 2025-05-21 16:21 Unspecified atrial fibrillation [facility] 2025-05-21 16:21 Heart failure, unspecified [facility] 2025-05-21 16:21 Gastrointestinal hemorrhage, un specified [facility] 2025-05-21 16:21 Shortness of breath [facility] 2025-05-21 16:38 Acute myeloblastic l eukemia, not having achieved remission [facility] 2025-05-21 16:38 Myeloid leukemia, un specified, not having achieved remission [facility] 2025-05-21 16:38 Anemia, unspecified [facility] 2025-05-21 16:38 Elevated white blood cell count , unspecified [facility] 2025-05-21 16:38 Hyperlipidemia, unspecified i [facility] 2025-05-21 16:38 Essential (primary) hypertensio n [facility] 2025-05-21 16:38 Unspecified atrial fibrillation [facility] 2025-05-21 16:38 Heart failure, unspecified [facility] 2025-05-21 16:38 Gastrointestinal hemorrhage, un specified [facility] 2025-05-21 16:38 Shortness of breath [facility] 2025-05-21 16:56 Acute myeloblastic l eukemia, not having achieved remission [facility] 2025-05-21 16:56 Myeloid leukemia, un specified, not having achieved remission [facility] 2025-05-21 16:56 Anemia, unspecified [facility] 2025-05-21 16:56 Elevated white blood cell count , unspecified [facility] 2025-05-21 16:56 Hyperlipidemia, unspecified i [facility] 2025-05-21 16:56 Essential (primary) hypertensio n [facility] 2025-05-21 16:56 Unspecified atrial fibrillation [facility] 2025-05-21 16:56 Heart failure, unspecified id [facility] 2025-05-21 16:56 Gastrointestinal hemorrhage, un specified [facility] [facility] 2025-05-21 16:56 Shortness of breath [facility] 2025-05-22 07:06 Acute myeloblastic l eukemia, not having achieved remission [facility] 2025-05-22 07:06 Myeloid leukemia, un specified, not having achieved remission [facility] [facility] 2025-05-22 07:06 Anemia, unspecified [facility] 2025-05-22 07:06 Elevated white blood cell count , unspecified [facility] [facility] 2025-05-22 07:06 Hyperlipidemia, unspecified [facility] 2025-05-22 07:06 Essential (primary) hypertensio n [facility] [facility] 2025-05-22 07:06 Unspecified atrial fibrillation [facility] [facility] 2025-05-22 07:06 Heart failure, unspecified [employer] 2025-05-22 07:06 Gastrointestinal hemorrhage, un specified [facility] [facility] 2025-05-22 07:06 Shortness of breath [facility] 2025-05-22 10:35 Iron deficiency anemia, unspeci fied [facility] [facility] 2025-05-22 12:09 Acute myeloblastic l eukemia, not having achieved remission [facility] [facility] 2025-05-22 12:09 Myeloid leukemia, un specified, not having achieved remission [facility] [facility] 2025-05-22 12:09 Anemia, unspecified [facility] 2025-05-22 12:09 Elevated white blood cell count , unspecified [facility] [facility] 2025-05-22 12:09 Hyperlipidemia, unspecified i [facility] 2025-05-22 12:09 Essential (primary) hypertensio n [facility] [facility] 2025-05-22 12:09 Unspecified atrial fibrillation [facility] 2025-05-22 12:09 Heart failure, unspecified id [facility] 2025-05-22 12:09 Gastrointestinal hemorrhage, un specified [facility] [facility] 2025-05-22 12:09 Shortness of breath [facility]onybeleno [facility] 2025-05-22 17:45 Acute myeloblastic l eukemia, not having achieved remission [facility] [facility] 2025-05-22 17:45 Myeloid leukemia, un specified, not having achieved remission [facility] [facility] 2025-05-22 17:45 Anemia, unspecified [facility] 2025-05-22 17:45 Elevated white blood cell count , unspecified [facility] 2025-05-22 17:45 Hyperlipidemia, unspecified i [facility] 2025-05-22 17:45 Essential (primary) hypertensio n [facility] 2025-05-22 17:45 Unspecified atrial fibrillation [facility] 2025-05-22 17:45 Heart failure, unspecified id [facility] 2025-05-22 17:45 Gastrointestinal hemorrhage, un specified [facility] [facility] 2025-05-22 17:45 Shortness of breath [facility] 2025-05-23 13:41 Acute myeloblastic l eukemia, not having achieved remission [facility] [facility] 2025-05-23 13:41 Myeloid leukemia, un specified, not having achieved remission [facility] [facility] 2025-05-23 13:41 Anemia, unspecified [facility] 2025-05-23 13:41 Elevated white blood cell count , unspecified [facility] [facility] 2025-05-23 13:41 Hyperlipidemia, unspecified i [facility] 2025-05-23 13:41 Essential (primary) hypertensio n [facility] 2025-05-23 13:41 Unspecified atrial fibrillation [facility] 2025-05-23 13:41 Heart failure, unspecified id [facility] 2025-05-23 13:41 Gastrointestinal hemorrhage, un specified [facility] [facility] 2025-05-23 13:41 Shortness of breath [facility] 2025-05-23 13:41 Other fecal abnormalities [facility] 2025-05-23 13:47 Acute myeloblastic l eukemia, not having achieved remission [facility] [facility] 2025-05-23 13:47 Myeloid leukemia, un specified, not having achieved remission [facility] 2025-05-23 13:47 Anemia, unspecified [facility] 2025-05-23 13:47 Elevated white blood cell count , unspecified [facility] 2025-05-23 13:47 Hyperlipidemia, unspecified i [facility] 2025-05-23 13:47 Essential (primary) hypertensio n [facility] 2025-05-23 13:47 Unspecified atrial fibrillation [facility] 2025-05-23 13:47 Heart failure, unspecified id [facility] 2025-05-23 13:47 Gastrointestinal hemorrhage, un specified [facility] 2025-05-23 13:47 Shortness of breath [facility] 2025-05-23 13:47 Other fecal abnormalities [facility] 2025-05-24 13:19 Other fecal abnormalities [facility] 2025-05-24 13:20 Other fecal abnormalities [facility] 2025-05-24 14:52 Acute myeloblastic l eukemia, not having achieved remission [facility] 2025-05-24 14:52 Myeloid leukemia, un specified, not having achieved remission [facility] 2025-05-24 14:52 Anemia, unspecified [facility] 2025-05-24 14:52 Elevated white blood cell count , unspecified [facility] 2025-05-24 14:52 Hyperlipidemia, unspecified i [facility] 2025-05-24 14:52 Essential (primary) hypertensio n [facility] 2025-05-24 14:52 Unspecified atrial fibrillation [facility] 2025-05-24 14:52 Heart failure, unspecified id [facility] 2025-05-24 14:52 Shortness of breath [facility] 2025-05-24 14:52 Other fecal abnormalities [facility] 2025-05-25 13:36 Anemia, unspecified [facility] 2025-05-25 13:38 Anemia, unspecified [facility] 2025-05-26 00:03 Anemia, unspecified [facility] 2025-06-04 12:44 Iron deficiency anemia, [facility]ied [facility] 2025-06-06 13:43 Anemia, unspecified [facility] 2025-06-08 09:11 Acute myeloblastic l eukemia, not having achieved remission [facility] 2025-06-08 09:11 Myeloid leukemia, un specified, not having achieved remission [facility] 2025-06-08 09:11 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 [facility] 2025-06-08 09:11 Acute posthemorrhagic anemia [facility] 2025-06-08 09:11 Anemia, unspecified [facility] 2025-06-08 09:11 Elevated white blood cell count , unspecified [facility] 2025-06-08 09:11 Hyperlipidemia, unspecified [facility] 2025-06-08 09:11 Other chronic pain [facility] 2025-06-08 09:11 Essential (primary) hypertensio n [facility] 2025-06-08 09:11 Unspecified atrial fibrillation [facility] 2025-06-08 09:11 Heart failure, unspecified [facility] 2025-06-08 09:11 Pneumonia, unspecified organism [facility] 2025-06-08 09:11 Acute gastric ulcer with hemorr richi [facility] 2025-06-08 09:11 Gastrointestinal hemorrhage, un specified [facility] 2025-06-08 09:11 Pain in left knee [facility] 2025-06-08 09:11 Pain in left leg [facility] 2025-06-08 09:11 Shortness of breath [facility] 2025-06-08 09:11 Other specified symp toms and signs involving the circulatory and respiratory systems [facility] 2025-06-08 09:11 Other fecal abnormalities [facility] 2025-06-08 09:11 Weakness [facility] 2025-06-08 09:11 Other fatigue [facility] 2025-06-08 09:11 Laceration without f oreign body of right hand, [facility] 2025-06-08 09:11 Unspecified injury of left hip, initial encounter [facility] 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 [facility] 2025-06-08 09:13 Acute posthemorrhagic anemia [facility] 2025-06-08 09:13 Anemia, unspecified [facility] 2025-06-08 09:13 Elevated white blood cell count , unspecified [facility] 2025-06-08 09:13 Hyperlipidemia, unspecified [facility] 2025-06-08 09:13 Other chronic pain [facility] 2025-06-08 09:13 Essential (primary) hypertensio n [facility] 2025-06-08 09:13 Unspecified atrial fibrillation [facility] 2025-06-08 09:13 Heart failure, unspecified [facility] 2025-06-08 09:13 Pneumonia, unspecified organism [facility] 2025-06-08 09:13 Acute gastric ulcer with hemorr richi [facility] 2025-06-08 09:13 Gastrointestinal hemorrhage, un specified [facility] 2025-06-08 09:13 Pain in left knee [facility] [facility] 2025-06-08 09:13 Pain in left leg [facility] 2025-06-08 09:13 Shortness of breath [facility] 2025-06-08 09:13 Other specified symp toms and signs involving the circulatory and respiratory systems [facility] 2025-06-08 09:13 Other fecal abnormalities [facility] 2025-06-08 09:13 Weakness [facility] 2025-06-08 09:13 Other fatigue [facility] 2025-06-08 09:13 Laceration without f oreign body of right hand, initial encounter [facility] 2025-06-08 09:13 Unspecified [facility] left hip, [facility] 09:13 Encounter for genera l adult medical examination without abnormal [facility]08 09:13 Encounter for antineoplastic ch emotherapy [facility] 2025-06-08 09:13 Other specified health status [facility] 2025-06-08 13:32 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 [facility] 2025-06-08 13:32 Acute gastric ulcer with hemorr richi [facility] 2025-[facility]08 13:32 Encounter for genera l adult medical examination without abnormal [facility]25-[facility]08 13:32 [facility] 2025-[facility]08 13:32 Other specified health status [facility] 2025-06-08 15:44 Iron deficiency anemia, unspeci fied [facility] 2025-06-13 10:12 Acute myeloblastic l eukemia, not having achieved remission [facility] 2025-06-13 10:12 Myeloid leukemia, un specified, not having achieved remission [facility] 2025-06-13 10:12 [facility] 10:12 Anemia, unspecified [facility] 2025-06-13 10:12 Elevated white blood cell count , unspecified [facility] 2025-06-13 10:12 Hyperlipidemia, unspecified [facility] 2025-06-13 10:12 Other chronic pain [facility] 2025-06-13 10:12 Essential (primary) hypertensio n [facility] 2025-06-13 10:12 Unspecified atrial fibrillation [facility] 2025-06-13 10:12 Heart failure, unspecified [facility] 2025-06-13 10:12 Pneumonia, unspecified organism [facility] 2025-06-13 10:12 Gastrointestinal hemorrhage, un specified [facility] 2025-06-13 10:12 Pain in left knee [facility] 2025-06-13 10:12 [facility] 2025-06-13 10:12 [facility]25-06-13 10:12 Other specified symp toms and signs involving the circulatory and respiratory systems [facility] 2025-06-13 10:12 Other fecal abnormalities [facility] 2025-06-13 10:12 [facility]ness [facility] 2025-[facility]13 10:12 Other [facility] 2025-06-13 10:12 Laceration without f oreign body of right hand, [facility] 2025-06-13 10:12 Unspecified injury of left hip, [facility] 2025-06-14 11:51 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 RESULTS TO FOLLOW. (missing) (missing) CUL, URINE 2025-03-18 21:52 [facility] NGNo growth (miss ing) (missing) Result panel 2 HCT - HEMATOCRIT 2025-03-19 04:19 [facility] 28.0 % (missing) HGB - HEMOGLOBIN 2025-03-19 04:19 [facility] 8.1 g /dl (missing) Result panel 3 CREATININE 2025-03-19 08:20 [facility] 0.9 mg/dl As of January 2023 testing method has changed, this may include reference ranges. MEAN PLATELET VOLUME 2025-03-19 08:20 [facility] 10.1 fl (missing) CHLORIDE 2025-03-19 08:20 [facility] 100 mmol/l As of January 2023 testing method has changed, this may include reference ranges. GLUCOSE 2025-03-19 08:20 [facility] 122 mg/dl As of January 2023 testing method has changed, this may include reference ranges. SODIUM 2025-03-19 08:20 [facility] 139 mmol/l (missing) BUN - BLOOD UREA NITROGEN 2025-03-19 08:20 [facility] 17 mg/dl As of Jan testing method has changed, this may include reference ranges. RED CELL DISTRIBUTION WIDTH 2025-03-19 08:20 [facility] 19.0 % (mi ssing) MEAN CORPUSCULAR HEMOGLOBIN 2025-03-19 08:20 [facility] 26.5 pg (missing) WHITE BLOOD COUNT 2025-03-19 08:20 [facility] 27.2 x10 3/ul (missing) MEAN CORPUSCULAR HGB CONC 2025-03-19 08:20 [facility] 28.7 g/dl (missing) HCT - HEMATOCRIT 2025-03-19 08:20 [facility] 29.6 % (missing) PLT - PLATELET COUNT 2025-03-19 08:20 [facility] 293 10 3/ul (missing) RED BLOOD COUNT 2025-03-19 08:20 [facility] 3.21 10 6/ul (missing) CARBON DIOXIDE - CO2 2025-03-19 08:20 [facility] 31 mmol/l As of January 2023 testing method has changed, this may include reference ranges. POTASSIUM 2025-03-19 08:20 [facility] 4.1 mmol/l As of January 2023 testing method has changed, this may include reference ranges. GFR - MDRD 2025-03-19 08:20 [facility] 60 (missin g) The IDMS-traceable MDRD Study [...] updated September 2011. ANION GAP 2025-03-19 08:20 [facility] 8.0 (missing ) (missing) HGB - HEMOGLOBIN 2025-03-19 08:20 [facility] 8.5 g /dl (missing) CALCIUM 2025-03-19 08:20 [facility] 9.3 mg/dl As of January 2023 testing method has changed, this may include reference ranges. MEAN CORPUSCULAR VOLUME 2025-03-19 08:20 [facility] 92.2 fl (missing) Result panel 4 CULTURE, BLOOD #1 2025-03-19 12:25 [facility] NG1D NO GROWTH AFTER 1 DAY (missing) (missing) CULTURE, BLOOD #1 2025-03-19 12:25 [facility] NG2D NO GROWTH AFTER 2 DAYS (missing) (missing) CULTURE, BLOOD #1 2025-03-19 12:25 [facility] NG5D NO GROWTH AFTER 5 DAYS (missing) (missing) Result panel 5 CULTURE, BLOOD #2 2025-03-19 12:31 [facility] NG1D NO GROWTH AFTER 1 DAY (missing) (missing) CULTURE, BLOOD #2 2025-03-19 12:31 [facility] NG2D NO GROWTH AFTER 2 DAYS (missing) (missing) CULTURE, BLOOD #2 2025-03-19 12:31 [facility] NG5D NO GROWTH AFTER 5 DAYS (missing) (missing) Result panel 6 CREATININE 2025-03-20 04:12 [facility] 0.8 mg/dl As of January 2023 testing method has changed, this may include reference ranges. MEAN PLATELET VOLUME 2025-03-20 04:12 [facility] 10.1 fl (missing) CHLORIDE 2025-03-20 04:12 [facility] 101 mmol/l As of January 2023 testing method has changed, this may include reference ranges. GLUCOSE 2025-03-20 04:12 [facility] 117 mg/dl As of January 2023 testing method has changed, this may include reference ranges. SODIUM 2025-03-20 04:12 [facility] 139 mmol/l (missing) BUN - BLOOD UREA NITROGEN 2025-03-20 04:12 [facility] 17 mg/dl As of Jan testing method has changed, this may include reference ranges. RED CELL DISTRIBUTION WIDTH 2025-03-20 04:12 [facility] 19.0 % (mi ssing) MAGNESIUM 2025-03-20 04:12 [facility] 2.1 mg/dl As of January 2023 testing method has changed, this may include reference ranges. RED BLOOD COUNT 2025-03-20 04:12 [facility] 2.84 10 6/ul (missing) WHITE BLOOD COUNT 2025-03-20 04:12 [facility] 20.0 x10 3/ul (missing) PLT - PLATELET COUNT 2025-03-20 04:12 [facility] 230 10 3/ul (missing) HCT - HEMATOCRIT 2025-03-20 04:12 [facility] 26.6 % (missing) MEAN CORPUSCULAR HEMOGLOBIN 2025-03-20 04:12 [facility] 26.8 pg (missing) MEAN CORPUSCULAR HGB CONC 2025-03-20 04:12 [facility] 28.6 g/dl (missing) CARBON DIOXIDE - CO2 2025-03-20 04:12 [facility] 32 mmol/l As of January 2023 testing method has changed, this may include reference ranges. POTASSIUM 2025-03-20 04:12 [facility] 4.0 mmol/l As of January 2023 testing method has changed, this may include reference ranges. ANION GAP 2025-03-20 04:12 [facility] 6.0 (missing ) (missing) GFR - MDRD 2025-03-20 04:12 [facility] 68 (jaquelin g) The IDMS-traceable MDRD Study Equation has [...] September 2011. HGB - HEMOGLOBIN 2025-03-20 04:12 [facility] 7.6 g /dl (missing) CALCIUM 2025-03-20 04:12 [facility] 8.7 mg/dl As of January 2023 testing method has changed, this may include reference ranges. MEAN CORPUSCULAR VOLUME 2025-03-20 04:12 [facility] 93.7 fl (missing) Result panel 7 MEAN PLATELET VOLUME 2025-03-20 15:12 [facility] 10.8 fl (missing) RED CELL DISTRIBUTION WIDTH 2025-03-20 15:12 [facility] 18.9 % (missing) WHITE BLOOD COUNT 2025-03-20 15:12 [facility] 23.5 x10 3/ul (missing) PLT - PLATELET COUNT 2025-03-20 15:12 [facility] 246 10 3/ul (missing) MEAN CORPUSCULAR HEMOGLOBIN 2025-03-20 15:12 [facility] 26.1 pg (missing) MEAN CORPUSCULAR HGB CONC 2025-03-20 15:12 [facility] 27 .9 g/dl (missing) HCT - HEMATOCRIT 2025-03-20 15:12 [facility] 29.0 % (missing) RED BLOOD COUNT 2025-03-20 15:12 [facility] 3.10 10 6/ul (missing) HGB - HEMOGLOBIN 2025-03-20 15:12 [facility] 8.1 g /dl (missing) MEAN CORPUSCULAR VOLUME 2025-03-20 15:12 [facility] 93.5 fl (missing) Result panel 8 CREATININE 2025-03-21 09:10 [facility] 1.0 mg/dl As of January 2023 testing method has changed, this may include reference ranges. MEAN PLATELET VOLUME 2025-03-21 09:10 [facility] 10.5 fl (missing) SODIUM 2025-03-21 09:10 [facility] 135 mmol/l (missing) GLUCOSE 2025-03-21 09:10 [facility] 162 mg/dl As of January 2023 testing method has changed, this may include reference ranges. RED CELL DISTRIBUTION WIDTH 2025-03-21 09:10 [facility] 18.4 % (mi ssing) BUN - BLOOD UREA NITROGEN 2025-03-21 09:10 [facility] 20 mg/dl As of Jan testing method has changed, this may include reference ranges. WHITE BLOOD COUNT 2025-03-21 09:10 [facility] 25.4 x10 3/ul (missing) PLT - PLATELET COUNT 2025-03-21 09:10 [facility] 259 10 3/ul (missing) MEAN CORPUSCULAR HEMOGLOBIN 2025-03-21 09:10 [facility] 26.9 pg (missing) HCT - HEMATOCRIT 2025-03-21 09:10 [facility] 28.2 % (missing) MEAN CORPUSCULAR HGB CONC 2025-03-21 09:10 [facility] 28.7 g/dl (missing) POTASSIUM 2025-03-21 09:10 [facility] 3.0 mmol/l As of January 2023 testing method has changed, this may include reference ranges. RED BLOOD COUNT 2025-03-21 09:10 [facility] 3.01 10 6/ul (missing) CARBON DIOXIDE - CO2 2025-03-21 09:10 [facility] 32 mmol/l As of January 2023 testing method has changed, this may include reference ranges. GFR - MDRD 2025-03-21 09:10 [facility] 53 (in g) The IDMS-traceable MDRD Study Equation [...] updated September 2011. ANION GAP 2025-03-21 09:10 [facility] 8.0 (missing ) (missing) HGB - HEMOGLOBIN 2025-03-21 09:10 [facility] 8.1 g /dl (missing) CALCIUM 2025-03-21 09:10 [facility] 8.7 mg/dl As of January 2023 testing method has changed, this may include reference ranges. MEAN CORPUSCULAR VOLUME 2025-03-21 09:10 [facility] [employer] 93.7 fl (missing) CHLORIDE 2025-03-21 09:10 [facility] 95 mmol/l As of January 2023 testing method has changed, this may include reference ranges. Result panel 9 TROPONIN I HIGH SENSITIVITY 2025-03-21 18:48 [facility] 11.4 ng/l A HIGH SE NSITIVITY TROPONIN result of >= 14.9 ng/L for females is considered POSITIVE. A HIGH SENSITIVITY TROPONIN result of >= 19.8 ng/L for males is considered POSITIVE. A HIGH SENSITIVITY TROPONIN result of >= 17.9 ng/L for unspecified is considered POSITIVE. Result panel 10 CREATININE 2025-03-22 05:39 [facility] 0.9 mg/dl As of January 2023 testing method has changed, this may include reference ranges. MEAN PLATELET VOLUME 2025-03-22 05:39 [employer] [facility] 10.3 fl (missing) SODIUM 2025-03-22 05:39 [employer] [facility] 137 mmol/l (missing) WHITE BLOOD COUNT 2025-03-22 05:39 [employer] [facility] 15.8 x10 3/ul (missing) RED CELL DISTRIBUTION WIDTH 2025-03-22 05:39 [facility] 18.1 % (mi ssing) MAGNESIUM 2025-03-22 05:39 [facility] 2.0 mg/dl As of January 2023 testing method has changed, this may include reference ranges. RED BLOOD COUNT 2025-03-22 05:39 [facility] 2.95 10 6/ul (missing) BUN - BLOOD UREA NITROGEN 2025-03-22 05:39 [facility] 20 mg/dl As of Jan testing method has changed, this may include reference ranges. PLT - PLATELET COUNT 2025-03-22 05:39 [facility] 219 10 3/ul (missing) MEAN CORPUSCULAR HEMOGLOBIN 2025-03-22 05:39 [facility] 26.4 pg (missing) HCT - HEMATOCRIT 2025-03-22 05:39 [facility] 27.8 % (missing) MEAN CORPUSCULAR HGB CONC 2025-03-22 05:39 [facility] 28.1 g/dl (missing) POTASSIUM 2025-03-22 05:39 [facility] 3.3 mmol/l As of January 2023 testing method has changed, this may include reference ranges. CARBON DIOXIDE - CO2 2025-03-22 05:39 [facility] 33 mmol/l As of January 2023 testing method has changed, this may include reference ranges. ANION GAP 2025-03-22 05:39 [facility] 5.0 (missing ) (missing) GFR - MDRD 2025-03-22 05:39 [facility] 60 (missin g) The IDMS-traceable MDRD Study [...] September 2011. HGB - HEMOGLOBIN 2025-03-22 05:39 [facility] 7.8 g /dl (missing) CALCIUM 2025-03-22 05:39 [facility] 8.6 mg/dl As of January 2023 testing method has changed, this may include reference ranges. GLUCOSE 2025-03-22 05:39 [facility] 93 mg/dl As of January 2023 testing method has changed, this may include reference ranges. MEAN CORPUSCULAR VOLUME 2025-03-22 05:39 [facility] 94.2 fl (missing) CHLORIDE 2025-03-22 05:39 [facility] 99 mmol/l As of January 2023 testing method has changed, this may include reference ranges. Result panel 11 FOLATE RBC 2025-04-11 13:16 [facility] >2006 ng/ml Performed at: [facility] [address], [place], [place] [id number] Mill Washer: Teresa Simon MD, Phone: [phone] Performed at: [facility] - [facility] [address] [id number] Mill Washer: Tee Ibrahim MD, Phone: [phone] FOLATE HEMOLYSATE 2025-04-11 13:16 [facility] >620.0 [...] 13:16 [facility] 0.2 10 3/ul (missing) [id number] 2025-04-11 13:16 [facility] 0.4 g/dl (missing) [id number] 2025-04-11 13:16 [facility] 0.6 g/dl (missing) [...] [facility] 1.19 (missing ) Performed at: [facility] [address], [place], [place] [id number] Mill Washer: Teresa Simon MD, Phone: [phone] LYMPHOCYTES # (AUTO) 2025-04-11 13:16 [facility] [...] [facility] 139 mmol/l Unknown IRON 2025-04-11 13:16 [facility] 144 ug/dl As of January 2023 testing method has changed, this may include reference ranges. ALT ALANINE AMINOTRANSFERASE 2025-04-11 13:16 [facility] 17 iu/l As of January 2023 testing method has changed, this may include reference ranges. BUN - BLOOD UREA NITROGEN 2025-04-11 13:16 [facility] 17 mg/dl As of January 2023 testing method has changed, this may include reference ranges. PLT - PLATELET COUNT 2025-04-11 13:16 [facility] 180 10 3/ul (missing) RED CELL DISTRIBUTION WIDTH 2025-04-11 13:16 [facility] 19.7 % (missing) BAND NEUTROPHILS % (MANUAL) 2025-04-11 13:16 [facility] 2 % (missing) GLOBULIN 2025-04-11 13:16 [facility] 2.7 g/dl (missing) ALBUMIN 2025-04-11 13:16 [facility] 2.9 g/dl (missing) TRANSFERRIN 2025-04-11 13:16 [facility] 243 mg/dl As of January 2023 testing method has changed, this may include reference ranges. MEAN CORPUSCULAR HEMOGLOBIN 2025-04-11 13:16 [facility] 25.8 pg (missing) IMMUNOGLOBULIN A (IGA) 2025-04-11 13:16 [facility] 255 mg/dl (missing) MEAN CORPUSCULAR HGB CONC 2025-04-11 13:16 [facility] 26.3 g/dl (missing) AST ASPARTATE AMINOTRANSFERASE 2025-04-11 13:16 [facility] 29 iu/l As of January 2023 testing method has changed, this may include reference ranges. RBC MORPHOLOGY (MULTIPLE) 2025-04-11 13:16 [facility] 3+ ANISOCYTOSIS (missing ) (missing) GLOBULIN TOTAL 2025-04-11 13:16 [facility] 3.1 g/dl (missing) RED BLOOD COUNT 2025-04-11 13:16 [facility] 3.26 10 6/ul (missing) ALBUMIN 2025-04-11 13:16 [facility] 3.7 g/dl As of January 2023 testing method has changed, this may include reference ranges. POTASSIUM 2025-04-11 13:16 [facility] 3.9 mmol/l As of January 2023 testing method has changed, this may include reference ranges. CARBON DIOXIDE - CO2 2025-04-11 13:16 [facility] 30 mmol/l As of January 2023 testing method has changed, this may include reference ranges. HEMATOCRIT 2025-04-11 13:16 [facility] 30.9 % (missing) HCT - HEMATOCRIT 2025-04-11 13:16 [facility] 31.9 % (missing) LDH - LACTATE DEHYDROGENASE 2025-04-11 13:16 [facility] 328 iu/l As of January 2023 testing method has changed, this may include reference ranges. LAMBDA FREE LT CHAINS SERUM 2025-04-11 13:16 [facility] 34.2 mg/l (missing) TOTAL IRON BINDING CAPACITY 2025-04-11 13:16 [facility] 340 ug/dl (missing) METAMYELOCYTES % (MANUAL) 2025-04-11 13:16 [facility] 4 % (missing) KAPPA FREE LT CHAINS SERUM 2025-04-11 13:16 [facility] 40.7 mg/l (missing) % IRON SATURATION 2025-04-11 13:16 [facility] 42 % (missing) FERRITIN 2025-04-11 13:16 [facility] 51.8 ng/ml (missing) GFR - MDRD 2025-04-11 13:16 [facility] 53 (missing ) The IDMS-traceable MDRD Study [...] September 2011. MYELOCYTES % (MANUAL) 2025-04-11 13:16 [facility] 6 % (missing) REACTIVE LYMPHS % (MANUAL) 2025-04-11 13:16 [facility] 6 % (missing) ANION GAP 2025-04-11 13:16 [facility] 6.0 (missing ) (missing) PROTEIN TOTAL 2025-04-11 13:16 [facility] 6.0 g/dl (missing) TOTAL PROTEIN 2025-04-11 13:16 [facility] 6.4 g/dl As of January 2023 testing method has changed, this may include reference ranges. NEUTROPHILS # (AUTO) 2025-04-11 13:16 [facility] 6.6 10 3/ul (missing) IMMUNOGLOBULIN M (IGM) 2025-04-11 13:16 [facility] 69 mg/dl (missing) HAPTOGLOBIN 2025-04-11 13:16 [facility] 69 mg/dl Performed at: [address], [place] [id number] Mill Washer: Tee Ibrahim MD, Phone: [phone] NEUTROPHILS # (MANUAL) 2025-04-11 13:16 [facility] [...] scan will follow via computer, mail, or gate cutter delivery. Performed at: [address], [place], [place] [id number] Mill Washer: Tee Ibrahim MD, Phone: [phone] Performed at: [facility] [address] [facility] [address], [place], [place] [id number] Mill Washer: Teresa Simon MD, Phone: [phone] IMMUNOFIXATION SERUM 2025-04-11 13:16 [facility] Comment (missing ) The immunofixation pattern appears unremarkable. Evidence of monoclonal protein is not apparent. DIFFERENTIAL COMMENT 2025-04-11 13:16 [facility] MANUAL DIFFERENTIAL (missing ) (missing) M-SPIKE 2025-04-11 13:16 [facility] Not Observed g/dl (missing) Result panel 12 BAND NEUTROPHILS % (MANUAL) 2025-05-17 07:54 [facility] [...] l (missing) WHITE BLOOD COUNT 2025-05-17 07:54 [facility] 15.9 x10 3/ul (missing) ALT ALANINE AMINOTRANSFERASE 2025-05-17 07:54 [facility] 18 iu/l As of January 2023 testing method has changed, this may include reference ranges. RED CELL DISTRIBUTION WIDTH 2025-05-17 07:54 [facility] 18.3 % (missing) NUCLEATED RBC (MANUAL) 2025-05-17 07:54 [facility] 2 % (missing) RBC MORPHOLOGY (MULTIPLE) 2025-05-17 07:54 [facility] 2+ STOMATOCYTES (miss ing) (missing) GLOBULIN 2025-05-17 07:54 [facility] 2.6 g/dl (missing) BUN - BLOOD UREA NITROGEN 2025-05-17 07:54 [facility] 21 mg/dl As of January 2023 testing method has changed, this may include reference ranges. MEAN CORPUSCULAR HEMOGLOBIN 2025-05-17 07:54 [facility] 25.4 pg (missing) MEAN CORPUSCULAR HGB CONC 2025-05-17 07:54 [facility] 27.4 g/dl (missing) METAMYELOCYTES % (MANUAL) 2025-05-17 07:54 [facility] 3 % (missing) RBC MORPHOLOGY (MULTIPLE) 2025-05-17 07:54 [facility] 3+ HYPOCHROMASIA (miss ing) (missing) POTASSIUM 2025-05-17 07:54 [facility] 3.4 mmol/ l As of January 2023 testing method has changed, this may include reference ranges. RED BLOOD COUNT 2025-05-17 07:54 [facility] 3.50 10 6/ul (missing) ALBUMIN 2025-05-17 07:54 [facility] 3.9 g/dl As of January 2023 testing method has changed, this may include reference ranges. AST ASPARTATE AMINOTRANSFERASE 2025-05-17 07:54 [facility] 30 iu/l As of January 2023 testing method has changed, this may include reference ranges. HCT - HEMATOCRIT 2025-05-17 07:54 [facility] 32.5 % (missing) CARBON DIOXIDE - CO2 2025-05-17 07:54 [facility] 35 mmol/ l As of January 2023 testing method has changed, this may include reference ranges. ANION GAP 2025-05-17 07:54 [facility] 4.0 (miss ing) (missing) LYMPHOCYTES # (MANUAL) 2025-05-17 07:54 [facility] 4.6 10 3/ul (missing) PLT - PLATELET COUNT 2025-05-17 07:54 [facility] 408 10 3/ul (missing) GFR - MDRD 2025-05-17 07:54 [facility] 47 (miss ing) The IDMS-traceable MDRD Study [...] updated September 2011. TOTAL PROTEIN 2025-05-17 07:54 [facility] 6.5 g/dl As of January 2023 testing method has changed, this may include reference ranges. MYELOCYTES % (MANUAL) 2025-05-17 07:54 [facility] 7 % (missing) NEUTROPHILS # (MANUAL) 2025-05-17 07:54 [facility] 8.3 10 3/ul (missing) HGB - HEMOGLOBIN 2025-05-17 07:54 [facility] 8.9 g/dl (missing) ABNORMAL LYMPHS % (MANUAL) 2025-05-17 07:54 [facility] 9 % (missing) CALCIUM 2025-05-17 07:54 [facility] 9.4 mg/dl As of January 2023 testing method has changed, this may include reference ranges. MEAN PLATELET VOLUME 2025-05-17 07:54 [facility] 9.5 fl (missing) MEAN CORPUSCULAR VOLUME 2025-05-17 07:54 [facility] 92.9 fl (missing) FLOW COMMENT 2025-05-17 07:54 [facility] Comment (miss ing) 1. The findings are [...] 20.5% Viability: 96.3% LEUKEMIA/LYMPHOMA COMMENT 2025-05-17 07:54 [facility] Comment (miss ing) Each antibody in this assay was utilized to assess for potential abnormalities of studied cell populations or to characterize identified abnormalities. This test was developed and its performance characteristics determined by [facility]. It has not been cleared or approved by the U.S. Food and Drug Administration. The FDA has determined that such clearance or approval is not necessary. This test is used for clinical purposes. It should not be regarded as investigational or for research. Performed at: [address] [id number] Mill Washer: Tee Ibrahim MD, Phone: [phone] SPECIMEN TYPE 2025-05-17 07:54 [facility] Comment (miss ing) Peripheral Blood RESULTING PATH NAME 2025-05-17 07:54 [facility] Comment (miss ing) Reviewed by: Jam Song MD, Pathologist NPI- [id number] FLOW INTERPRETATION 2025-05-17 07:54 [facility] Comment (miss ing) SPECIMEN TYPE: Peripheral Blood FLOW INTERPRETATION: Increased myeloid blasts, 6.8% by flow cytometry, with mild immunophenotypic alterations, and granulocytes with left shift and multiple immunophenotypic aberrancies, see comments. No monotypic B-cells or aberrant T-cell population. INDICATIONS FOR STUDY 2025-05-17 07:54 [facility] Comment (miss ing) The following antigens were evaluated: CD2, CD3, CD4, CD5, CD7, CD8, CD10, CD11b, CD11c, CD13, CD14, CD15, CD16, CD19, CD20, CD22, CD23, CD33, CD34, CD38, CD45, CD56, CD57, CD64, CD103, CD117, FMC-7, HLA-DR, kappa and lambda. DIFFERENTIAL COMMENT 2025-05-17 07:54 [facility] MANUAL DIFFERENTIAL (miss ing) (missing) PLATELET ESTIMATE, MANUAL 2025-05-17 07:54 [facility] NORMAL (130-450,000) (miss ing) (missing) PLATELET MORPHOLOGY 2025-05-17 07:54 [facility] NORMAL APPEARANCE (miss ing) (missing) CLINICAL INFORMATION 2025-05-17 07:54 [facility] TNP (miss ing) (missing) LAB 07:54 [facility] TNP (miss ing) (missing) Result panel 13 BASOPHILS # (MANUAL) 2025-05-18 23:42 [facility] 0.0 10 3/ul (missing) MONOCYTES # (MANUAL) 2025-05-18 23:42 [facility] 0.0 10 3/ul (missing) EOSINOPHILS # (MANUAL) 2025-05-18 23:42 [facility] 0.2 10 3/ul (missing) BAND NEUTROPHILS % (MANUAL) 2025-05-18 23:42 [facility] 1 % (missing) METAMYELOCYTES % (MANUAL) 2025-05-18 23:42 [facility] 1 % (missing) RBC MORPHOLOGY (MULTIPLE) 2025-05-18 23:42 [facility] 1+ ANISOCYTOSIS (missing ) (missing) PLATELET MORPHOLOGY 2025-05-18 23:42 [facility] 1+ LARGE PLATELETS (missing ) (missing) RBC MORPHOLOGY (MULTIPLE) 2025-05-18 23:42 [facility] 1+ MICROCYTOSIS (missing ) (missing) WBC MORPHOLOGY (MULTIPLE) 2025-05-18 23:42 [facility] 1+AGRANULA (missing ) (missing) BILIRUBIN,TOTAL 2025-05-18 23:42 [facility] 1.0 mg/dl As of January 2023 testing method has changed, this may include reference ranges. CREATININE 2025-05-18 23:42 [facility] 1.0 mg/dl As of January 2023 testing method has changed, this may include reference ranges. ALBUMIN/GLOBULIN RATIO 2025-05-18 23:42 [facility] 1.7 (missing ) (missing) NUCLEATED RBC (MANUAL) 2025-05-18 23:42 [facility] 10 % (missing) MEAN PLATELET VOLUME 2025-05-18 23:42 [facility] 10.4 fl (missing) TOTAL CELLS COUNTED 2025-05-18 23:42 [facility] 100 (missing ) (missing) CHLORIDE 2025-05-18 23:42 [facility] 101 mmol/l As of January 2023 testing method has changed, this may include reference ranges. GLUCOSE 2025-05-18 23:42 [facility] 122 mg/dl As of January 2023 testing method has changed, this may include reference ranges. SODIUM 2025-05-18 23:42 [facility] 138 mmol/l (missing) NEUTROPHILS # (MANUAL) 2025-05-18 23:42 [facility] 14.6 10 3/ul (missing) ALT ALANINE AMINOTRANSFERASE 2025-05-18 23:42 [facility] 17 iu/l As of January 2023 testing method has changed, this may include reference ranges. RED CELL DISTRIBUTION WIDTH 2025-05-18 23:42 [facility] 18.1 % (missing) ABNORMAL LYMPHS % (MANUAL) 2025-05-18 23:42 [facility] 2 % (missing) RBC MORPHOLOGY (MULTIPLE) 2025-05-18 23:42 [facility] 2+ HYPOCHROMASIA (missing ) (missing) GLOBULIN 2025-05-18 23:42 [facility] 2.3 g/dl (missing) RED BLOOD COUNT 2025-05-18 23:42 [facility] 2.68 10 6/ul (missing) BNP - B-NATRIURETIC PEPTIDE 2025-05-18 23:42 [facility] 203 pg/ml (missing) WHITE BLOOD COUNT 2025-05-18 23:42 [facility] 22.1 x10 3/ul (missing) HCT - HEMATOCRIT 2025-05-18 23:42 [facility] 25.4 % (missing) MEAN CORPUSCULAR HEMOGLOBIN 2025-05-18 23:42 [facility] 25.7 pg (missing) MEAN CORPUSCULAR HGB CONC 2025-05-18 23:42 [facility] 27.2 g/dl (missing) POTASSIUM 2025-05-18 23:42 [facility] 3.4 mmol/l As of January 2023 testing method has changed, this may include reference ranges. ALBUMIN 2025-05-18 23:42 [facility] 3.9 g/dl As of January 2023 testing method has changed, this may include reference ranges. AST ASPARTATE AMINOTRANSFERASE 2025-05-18 23:42 [facility] 30 iu/l As of January 2023 testing method has changed, this may include reference ranges. CARBON DIOXIDE - CO2 2025-05-18 23:42 [facility] 30 mmol/l As of January 2023 testing method has changed, this may include reference ranges. PLT - PLATELET COUNT 2025-05-18 23:42 [facility] 361 10 3/ul (missing) LYMPHOCYTES # (MANUAL) 2025-05-18 23:42 [facility] 4.0 10 3/ul (missing) BUN - BLOOD UREA NITROGEN 2025-05-18 23:42 [facility] 43 mg/dl As of January 2023 testing method has changed, this may include reference ranges. GFR - MDRD 2025-05-18 23:42 [facility] 53 (missing ) The IDMS-traceable MDRD Study [...] September 2011. PROMYELOCYTES % (MANUAL) 2025-05-18 23:42 [facility] 6 % (missing) TOTAL PROTEIN 2025-05-18 23:42 [facility] 6.2 g/dl As of January 2023 testing method has changed, this may include reference ranges. HGB - HEMOGLOBIN 2025-05-18 23:42 [facility] 6.9 g/dl Called to SERGIO Choudhary(METAL CNC OPERATOR) by Nicky Capone M.T.([facility]) at 2348 05/18/25. Read back(Y/N)?Y ANION GAP 2025-05-18 23:42 [facility] 7.0 (missing ) (missing) TROPONIN I HIGH SENSITIVITY 2025-05-18 23:42 [facility] 7.7 ng/l A HIGH SENSITIVITY TROPONIN result of >= 14.9 ng/L for females is considered POSITIVE. A HIGH SENSITIVITY TROPONIN result of >= 19.8 ng/L for males is considered POSITIVE. A HIGH SENSITIVITY TROPONIN result of >= 17.9 ng/L for unspecified is considered POSITIVE. MYELOCYTES % (MANUAL) 2025-05-18 23:42 [facility] 8 % (missing) ALKALINE PHOSPHATASE 2025-05-18 23:42 [facility] 80 iu/l As of January 2023 testing method has changed, this may include reference ranges. CALCIUM 2025-05-18 23:42 [facility] 9.3 mg/dl As of January 2023 testing method has changed, this may include reference ranges. MEAN CORPUSCULAR VOLUME 2025-05-18 23:42 [facility] 94.8 fl (missing) DIFFERENTIAL COMMENT 2025-05-18 23:42 [facility] MANUAL DIFFERENTIAL (missing ) (missing) PLATELET ESTIMATE, MANUAL 2025-05-18 23:42 [facility] NORMAL (130-450,000) (missing ) (missing) Result panel 14 LACTIC ACID, VENOUS 2025-05-19 06:45 [facility] 1.8 mmol/l N As of January 2023 testing method has changed, this may include reference ranges. Result panel 15 PROCALCITONIN 2025-05-19 08:15 [facility] 0.72 ng/ml PCT Concentration (n g/mL) Children >72hrs old and Adults Interpretation <0.5 Low risk of severe sepsis and/or septic shock >2.0 High risk of severe sepsis and/or septic shock Concentrations under 0.5 ng/mL do not exclude local infections or systemic infections in their initial stages (e.g. under six hours from onset of illness). PCT concentrations between 0.5 and 2.0 ng/mL should be interpreted with consideration of the patient's history. In this range, it is recommended to retest PCT within 6 to 24hours. CREATININE 2025-05-19 08:15 [facility] 1.1 mg/dl As of January 2023 test ing method has changed, this may include reference ranges. BILIRUBIN,TOTAL 2025-05-19 08:15 [facility] 1.2 mg/dl As of January 2023 test ing method has changed, this may include reference ranges. ALBUMIN/GLOBULIN RATIO 2025-05-19 08:15 [facility] 1.7 (missing ) (missing) CHLORIDE 2025-05-19 08:15 [facility] 102 mmol/l As of January 2023 test ing method has changed, this may include reference ranges. ANION GAP 2025-05-19 08:15 [facility] 11.0 (missing ) (missing) SODIUM 2025-05-19 08:15 [facility] 141 mmol/l Unknown GLUCOSE 2025-05-19 08:15 [facility] 142 mg/dl As of January 2023 test ing method has changed, this may include reference ranges. RED CELL DISTRIBUTION WIDTH 2025-05-19 08:15 [facility] 17.5 % (missing) ALT ALANINE AMINOTRANSFERASE 2025-05-19 08:15 [facility] 18 iu/l As of January 2023 test ing method has changed, this may include reference ranges. GLOBULIN 2025-05-19 08:15 [facility] 2.4 g/dl (missing) MEAN CORPUSCULAR HEMOGLOBIN 2025-05-19 08:15 [facility] 25.8 pg (missing) WHITE BLOOD COUNT 2025-05-19 08:15 [facility] 26.4 x10 3/ul (missing) HCT - HEMATOCRIT 2025-05-19 08:15 [facility] 27.8 % (missing) CARBON DIOXIDE - CO2 2025-05-19 08:15 [facility] 28 mmol/l As of January 2023 test ing method has changed, this may include reference ranges. MEAN CORPUSCULAR HGB CONC 2025-05-19 08:15 [facility] 28.1 g/dl (missing) RED BLOOD COUNT 2025-05-19 08:15 [facility] 3.02 10 6/ul (missing) POTASSIUM 2025-05-19 08:15 [facility] 3.3 mmol/l As of January 2023 test ing method has changed, this may include reference ranges. AST ASPARTATE AMINOTRANSFERASE 2025-05-19 08:15 [facility] 31 iu/l As of January 2023 test ing method has changed, this may include reference ranges. ALBUMIN 2025-05-19 08:15 [facility] 4.1 g/dl As of January 2023 test ing method has changed, this may include reference ranges. THYROID STIMULATING HORMONE 2025-05-19 08:15 [facility] 4.35 uiu/ml (missing) PLT - PLATELET COUNT 2025-05-19 08:15 [facility] 431 10 3/ul (missing) GFR - MDRD 2025-05-19 08:15 [facility] 47 (missing ) The IDMS-traceable MDRD Study Equation [...] caring for patients older than 70. References: http://www.nkdep.nih.gov/lab- evaluation/gfr/creatinine-sta nd ardization, last updated September 2011. BUN - BLOOD UREA NITROGEN 2025-05-19 08:15 [facility] 52 mg/dl As of January 2023 test ing method has changed, this may include reference ranges. TOTAL PROTEIN 2025-05-19 08:15 [facility] 6.5 g/dl As of January 2023 test ing method has changed, this may include reference ranges. HGB - HEMOGLOBIN 2025-05-19 08:15 [facility] 7.8 g/dl (missing) ALKALINE PHOSPHATASE 2025-05-19 08:15 [facility] 81 iu/l As of January 2023 test ing method has changed, this may include reference ranges. CALCIUM 2025-05-19 08:15 [facility] 9.4 mg/dl As of January 2023 test ing method has changed, this may include reference ranges. MEAN PLATELET VOLUME 2025-05-19 08:15 [facility] 9.8 fl (missing) MEAN CORPUSCULAR VOLUME 2025-05-19 08:15 [facility] 92.1 fl (missing) Result panel 16 CULTURE, BLOOD #1 2025-05-19 11:55 [facility] NG1D NO GROWTH AFTER 1 DAY (missing) (missing) CULTURE, BLOOD #1 2025-05-19 11:55 [facility] NG2D NO GROWTH AFTER 2 DAYS (missing) (missing) CULTURE, BLOOD #1 2025-05-19 11:55 [facility] NG5D NO GROWTH AFTER 5 DAYS (missing) (missing) Result panel 17 CULTURE, BLOOD #2 2025-05-19 11:56 [facility] NG1D NO GROWTH AFTER 1 DAY (missing) (missing) CULTURE, BLOOD #2 2025-05-19 11:56 [facility] NG2D NO GROWTH AFTER 2 DAYS (missing) (missing) CULTURE, BLOOD #2 2025-05-19 11:56 [facility] NG5D NO GROWTH AFTER 5 DAYS (missing) (missing) Result panel 18 RBC,URINE 2025-05-19 13:50 [facility] 0-5 /hpf (missing) UROBILINOGEN,URIN E 2025-05-19 13:50 [facility] 0.2 (NORMAL) e.u./dl (missing) SPECIFIC GRAVITY,URINE 2025-05-19 13:50 [facility] 1.015 (missing) (missing) WBC,URINE 2025-05-19 13:50 [facility] 11-25 /hpf (missing) PH,URINE 2025-05-19 13:50 [facility] 6.0 ph (missing) CUL, URINE 2025-05-19 13:50 [facility] CXPCULTURE IN PROGRESS. RESULTS TO FOLLOW. (missing) (missing) SQUAMOUS EPITHELIAL CELL,UR 2025-05-19 13:50 [facility] FEW Squamous (missing) (missing) CLARITY,URINE 2025-05-19 13:50 [facility] HAZY (missing) (missing) UR CULTURE IF IND 2025-05-19 13:50 [facility] INDICATED (missing) (missing) URINE MICROSCOPIC INDICATED? 2025-05-19 13:50 [facility] INDICATED (missing) (missing) CUL, URINE 2025-05-19 13:50 [facility] LUGFLess Than 10,000 COLONIES/ML UROGENITAL JONNIE (missing) (missing) LEUKOCYTE ESTERASE, URINE 2025-05-19 13:50 [facility] MODERATE (missing) (missing) BACTERIA,URINE 2025-05-19 13:50 [facility] Moderate /hpf (missing) NITRITE,URINE 2025-05-19 13:50 [facility] NEGATIVE (missing) (missing) BILIRUBIN,URINE 2025-05-19 13:50 [facility] NEGATIVE (missing) Bilirubin can be influenced by color interference. Please correlate positive results with clinical presentation GLUCOSE, URINE (UA) 2025-05-19 13:50 [facility] NEGATIVE mg/dl (missing) KETONES,URINE (UA) 2025-05-19 13:50 [facility] NEGATIVE mg/dl (missing) PROTEIN,URINE 2025-05-19 13:50 [facility] NEGATIVE mg/dl (missing) OCCULT BLOOD,URINE 2025-05-19 13:50 [facility] TRACE-LYSED (missing) (missing) COLOR,URINE 2025-05-19 13:50 [facility] YELLOW (missing) (missing) Result panel 19 BILIRUBIN,TOTAL 2025-05-20 08:57 [facility] 0.9 mg/dl As of January 2023 testing method has changed, this may include reference ranges. CREATININE 2025-05-20 08:57 [facility] 1.1 mg/dl As of January 2023 testing method has changed, this may include reference ranges. ALBUMIN/GLOBULIN RATIO 2025-05-20 08:57 [facility] 1.7 (missing) (missing) CHLORIDE 2025-05-20 08:57 [facility] 104 mmol/l As of January 2023 testing method has changed, this may include reference ranges. MEAN PLATELET VOLUME 2025-05-20 08:57 [facility] 11.5 fl (missing) GLUCOSE 2025-05-20 08:57 [facility] 110 mg/dl As of January 2023 testing method has changed, this may include reference ranges. SODIUM 2025-05-20 08:57 [facility] 139 mmol/l (missing) RED CELL DISTRIBUTION WIDTH 2025-05-20 08:57 [facility] 18.6 % (missing) ALT ALANINE AMINOTRANSFERASE 2025-05-20 08:57 [facility] 19 iu/l As of January 2023 testing method has changed, this may include reference ranges. MAGNESIUM 2025-05-20 08:57 [facility] 2.0 mg/dl As of January 2023 testing method has changed, this may include reference ranges. GLOBULIN 2025-05-20 08:57 [facility] 2.3 g/dl (missing) RED BLOOD COUNT 2025-05-20 08:57 [facility] 2.54 10 6/ul (missing) WHITE BLOOD COUNT 2025-05-20 08:57 [facility] 22.1 x10 3/ul (missing) HCT - HEMATOCRIT 2025-05-20 08:57 [facility] 24.4 % (missing) MEAN CORPUSCULAR HEMOGLOBIN 2025-05-20 08:57 [facility] 26.0 pg (missing) MEAN CORPUSCULAR HGB CONC 2025-05-20 08:57 [facility] 27.0 g/dl (missing) CARBON DIOXIDE - CO2 2025-05-20 08:57 [facility] 29 mmol/l As of January 2023 testing method has changed, this may include reference ranges. POTASSIUM 2025-05-20 08:57 [facility] 3.6 mmol/l As of January 2023 testing method has changed, this may include reference ranges. ALBUMIN 2025-05-20 08:57 [facility] 3.9 g/dl As of January 2023 testing method has changed, this may include reference ranges. PLT - PLATELET COUNT 2025-05-20 08:57 [facility] 320 10 3/ul (missing) AST ASPARTATE AMINOTRANSFERASE 2025-05-20 08:57 [facility] 38 iu/l As of January 2023 testing method has changed, this may include reference ranges. BUN - BLOOD UREA NITROGEN 2025-05-20 08:57 [facility] 40 mg/dl As of January 2023 testing method has changed, this may include reference ranges. GFR - MDRD 2025-05-20 08:57 [facility] 47 (missing) The IDMS-traceable MDRD Study Equation has been [...] caring for patients older than 70. References: http://www.nkdep. nih.gov/lab-evalu ation/gfr/creatin ine-stand ardization, last updated September 2011. ANION GAP 2025-05-20 08:57 [facility] 6.0 (missing) (missing) TOTAL PROTEIN 2025-05-20 08:57 [facility] 6.2 g/dl As of January 2023 testing method has changed, this may include reference ranges. HGB - HEMOGLOBIN 2025-05-20 08:57 [facility] 6.6 g/dl Called to Katherine Springer RN MS2 by Jasbir Cooper MLS([facility]) at 0906 05/20/25. Read back(Y/N)?Y ALKALINE PHOSPHATASE 2025-05-20 08:57 [facility] 80 iu/l As of January 2023 testing method has changed, this may include reference ranges. CALCIUM 2025-05-20 08:57 [facility] 9.5 mg/dl As of January 2023 testing method has changed, this may include reference ranges. MEAN CORPUSCULAR VOLUME 2025-05-20 08:57 [facility] 96.1 fl (missing) Result panel 20 CREATININE 2025-05-21 05:36 [facility] 1.1 mg/dl As of January 2023 testing method has changed, this may include reference ranges. MEAN PLATELET VOLUME 2025-05-21 05:36 [facility] 10.6 fl (missing) CHLORIDE 2025-05-21 05:36 [facility] 105 mmol/l As of January 2023 testing method has changed, this may include reference ranges. SODIUM 2025-05-21 05:36 [facility] 140 mmol/l (missing) RED CELL DISTRIBUTION WIDTH 2025-05-21 05:36 [facility] 19.2 % (mi ssing) MAGNESIUM 2025-05-21 05:36 [facility] 2.2 mg/dl As of January 2023 testing method has changed, this may include reference ranges. RED BLOOD COUNT 2025-05-21 05:36 [facility] 2.95 10 6/ul (missing) WHITE BLOOD COUNT 2025-05-21 05:36 [facility] 20.5 x10 3/ul (missing) MEAN CORPUSCULAR HEMOGLOBIN 2025-05-21 05:36 [facility] 26.4 pg (missing) HCT - HEMATOCRIT 2025-05-21 05:36 [facility] 27.7 % (missing) MEAN CORPUSCULAR HGB CONC 2025-05-21 05:36 [facility] 28.2 g/dl (missing) CARBON DIOXIDE - CO2 2025-05-21 05:36 [facility] 29 mmol/l As of January 2023 testing method has changed, this may include reference ranges. BUN - BLOOD UREA NITROGEN 2025-05-21 05:36 [facility] 33 mg/dl As of Jan testing method has changed, this may include reference ranges. PLT - PLATELET COUNT 2025-05-21 05:36 [facility] 347 10 3/ul (missing) POTASSIUM 2025-05-21 05:36 [facility] 4.1 mmol/l As of January 2023 testing method has changed, this may include reference ranges. GFR - MDRD 2025-05-21 05:36 [facility] 47 ([place]) The IDMS-traceable MDRD Study Equation [...] ardization, last updated September 2011. ANION GAP 2025-05-21 05:36 [facility] 6.0 (missing ) (missing) HGB - HEMOGLOBIN 2025-05-21 05:36 [facility] 7.8 g /dl (missing) CALCIUM 2025-05-21 05:36 [facility] 9.3 mg/dl As of January 2023 testing method has changed, this may include reference ranges. GLUCOSE 2025-05-21 05:36 [facility] 91 mg/dl As of January 2023 testing method has changed, this may include reference ranges. MEAN CORPUSCULAR VOLUME 2025-05-21 05:36 [facility] 93.9 fl (missing) Result panel 21 CREATININE 2025-05-22 04:58 [facility] 1.0 mg/dl As of January 2023 testing method has changed, this may include reference ranges. MEAN PLATELET VOLUME 2025-05-22 04:58 [facility] 10.2 fl (missing) CHLORIDE 2025-05-22 04:58 [facility] 105 mmol/l As of January 2023 testing method has changed, this may include reference ranges. SODIUM 2025-05-22 04:58 [facility] 138 mmol/l (missing) WHITE BLOOD COUNT 2025-05-22 04:58 [facility] 17.8 x10 3/ul (missing) RED CELL DISTRIBUTION WIDTH 2025-05-22 04:58 [facility] 19.3 % (mi ssing) MAGNESIUM 2025-05-22 04:58 [facility] 2.1 mg/dl As of January 2023 testing method has changed, this may include reference ranges. RED BLOOD COUNT 2025-05-22 04:58 [facility] 2.57 10 6/ul (missing) HCT - HEMATOCRIT 2025-05-22 04:58 [facility] 24.2 % (missing) BUN - BLOOD UREA NITROGEN 2025-05-22 04:58 [facility] 27 mg/dl As of Jan testing method has changed, this may include reference ranges. MEAN CORPUSCULAR HEMOGLOBIN 2025-05-22 04:58 [facility] 27.6 pg (missing) PLT - PLATELET COUNT 2025-05-22 04:58 [facility] 279 10 3/ul (missing) MEAN CORPUSCULAR HGB CONC 2025-05-22 04:58 [facility] 29.3 g/dl (missing) ANION GAP 2025-05-22 04:58 [facility] 3.0 (missing ) (missing) POTASSIUM 2025-05-22 04:58 [facility] 3.4 mmol/l As of January 2023 testing method has changed, this may include reference ranges. CARBON DIOXIDE - CO2 2025-05-22 04:58 [facility] 30 mmol/l As of January 2023 testing method has changed, this may include reference ranges. GFR - MDRD 2025-05-22 04:58 [facility] 53 (jaquelin g) The IDMS-traceable MDRD Study Equation has [...] last updated September 2011. HGB - HEMOGLOBIN 2025-05-22 04:58 [facility] 7.1 g /dl (missing) CALCIUM 2025-05-22 04:58 [facility] 8.6 mg/dl As of January 2023 testing method has changed, this may include reference ranges. GLUCOSE 2025-05-22 04:58 [facility] 90 mg/dl As of January 2023 testing method has changed, this may include reference ranges. MEAN CORPUSCULAR VOLUME 2025-05-22 04:58 [facility] 94.2 fl (missing) Result panel 22 ABNORMAL LYMPHS % (MANUAL) 2025-05-25 13:50 [facility] 0 % (missing) EOSINOPHILS # (MANUAL) 2025-05-25 13:50 [facility] 0.0 10 3/ul (missing) BASOPHILS # (MANUAL) 2025-05-25 13:50 [facility] 0.3 10 3/ul (missing) MONOCYTES # (MANUAL) 2025-05-25 13:50 [facility] 0.8 10 3/ul (missing) RBC MORPHOLOGY (MULTIPLE) 2025-05-25 13:50 [facility] 1+ ANISOCYTOSIS (missin g) (missing) RBC MORPHOLOGY (MULTIPLE) 2025-05-25 13:50 [facility] 1+ OVALOCYTES (missin g) (missing) NUCLEATED RBC (MANUAL) 2025-05-25 13:50 [facility] 10 % (missing) MEAN PLATELET VOLUME 2025-05-25 13:50 [facility] 10.0 fl (missing) TOTAL CELLS COUNTED 2025-05-25 13:50 [facility] 100 (missin g) (missing) NEUTROPHILS # (MANUAL) 2025-05-25 13:50 [facility] 16.5 10 3/ul (missing) RED CELL DISTRIBUTION WIDTH 2025-05-25 13:50 [facility] 19.0 % (missing) OTHER CELLS % (MANUAL) 2025-05-25 13:50 [facility] 2 % (missing) RBC MORPHOLOGY (MULTIPLE) 2025-05-25 13:50 [facility] 2+ HYPOCHROMASIA (missin g) (missing) RBC MORPHOLOGY (MULTIPLE) 2025-05-25 13:50 [facility] 2+ POLYCHROMASIA (missin g) (missing) MEAN CORPUSCULAR HEMOGLOBIN 2025-05-25 13:50 [facility] 26.0 pg (missing) WHITE BLOOD COUNT 2025-05-25 13:50 [facility] 27.0 x10 3/ul (missing) MEAN CORPUSCULAR HGB CONC 2025-05-25 13:50 [facility] 27.4 g/dl (missing) HCT - HEMATOCRIT 2025-05-25 13:50 [facility] 28.8 % (missing) METAMYELOCYTES % (MANUAL) 2025-05-25 13:50 [facility] 3 % (missing) BLAST CELLS % (MANUAL) 2025-05-25 13:50 [facility] 3 % Called to JE TIJERINA by Josee Long M.T.([facility]) at 1452 05/25/25. Read back(Y/N)? Y RED BLOOD COUNT 2025-05-25 13:50 [facility] 3.04 10 6/ul (missing) PLT - PLATELET COUNT 2025-05-25 13:50 [facility] 332 10 3/ul (missing) LYMPHOCYTES # (MANUAL) 2025-05-25 13:50 [facility] 4.3 10 3/ul (missing) BAND NEUTROPHILS % (MANUAL) 2025-05-25 13:50 [facility] 5 % (missing) PROMYELOCYTES % (MANUAL) 2025-05-25 13:50 [facility] 5 % (missing) MYELOCYTES % (MANUAL) 2025-05-25 13:50 [facility] 6 % (missing) HGB - HEMOGLOBIN 2025-05-25 13:50 [facility] 7.9 g/dl (missing) MEAN CORPUSCULAR VOLUME 2025-05-25 13:50 [facility] 94.7 fl (missing) DIFFERENTIAL COMMENT 2025-05-25 13:50 [facility] MANUAL DIFFERENTIAL (missin g) (missing) Social History date description facility
--- NOTE | 2025-06-17 15:55 | ED Physician Documentation ---
PD HPI DYSPNEA Stated complaint Stated Complaint: SHARP PX, Chief complaint Chief Complaint: Resp History obtained from History obtained from: Patient (The patient states she has had a cough and congestion with feeling of dyspnea and difficulty deep breathing for the past s everal days to week. She had been diagnosed with a myeloid dysplasia and is due to get a port placed in 2 days. Has not noticed any edema. Some general aches but no fever.) and Family (daughter) History of Present Illness Timing - onset: How many days ago (several days of cough and congestion with feeling of dyspnea. ) Timing - onset during: Light activity Timing - details: Gradual onset (The patient has had some cough and shortness of breath with activity over the last several days increasingly. No noted edema. No fever or chills per se but does feel general aches. No chest pain. She did also note onset of a lumbar back pain when lifting a small case of water 2 days ago.) and Still present Meds/Allgy Home Medications Ambulatory Orders Medication Instructions Recorded Confirmed atorvastatin 40 mg tablet (Lipitor) 80 mg PO HS 06/14/25 amlodipine 5 mg tablet 5 mg PO DAILY 01/14/2406/14 Held on 05/21/25. Instructions: Resume on 05/28/25. Hold until follow up PCP. Blood pressure normal to low while here. ondansetron 4 mg disintegrating 4 mg translingual Q12H PRN Nausea 01/14/24 06/14/25 tablet / Vomiting multivitamin with folic acid 400 1 tab PO DAILYWM 12/2506/14/25 mcg tablet (Thera) furosemide 20 mg tablet (Lasix) 20 mg PO DAILY #14 tab s 01/14/25 06/14/25 gabapentin 100 mg capsule 200 mg PO QPM 02/15/2506/14 metoprolol succinate 25 mg 12.5 mg PO DAILY 03/18/25 1 08/14/24 tablet,extended release 24 hr diphenoxylate-atropine 2.5 1 - 2 tab PO Q6H PRN diarrh ea 03/19/25 06/14/25 mg-0.025 mg tablet apixaban 5 mg tablet (Eliquis) 5 mg PO BID 05/11/25 Held on 05/21/25. Instructions: Resume on 05/28/25. Hold likely indefinitely. cholecalciferol (vitamin D3) 25 2,000 unit PO DAILY 06/14/25 mcg (1,000 unit) capsule (Vitamin D3) ferrous sulfate 325 mg (65 mg 325 mg PO DAILY 06/14/25 06/14/25 iron) tablet (Feosol) lidocaine 5 % topical patch 1 patch topical DAILY PRN pain 06/14/25 06/14/25 morphine 30 mg capsule,extended 30 mg PO DAILY 5 06/14/25 release 24 hr multiphase (Avinza) oxycodone-acetaminophen 10 mg-325 1 - 2 tab PO Q6HR AL N pain 06/14/25 06/14/25 mg tablet pantoprazole 40 mg tablet,delayed 40 mg PO DAILY 06/1406/14/25 release temazepam 22.5 mg capsule 22.5 mg PO .qhs 06/14/25 calcitonin (salmon) 200 1 spray intranasal (ALT) AUGUSTUS LY 06/17/25 unit/actuation nasal spray #3.7 mL dexamethasone 2 mg tablet 2 mg PO DAILY #5 tabs oxycodone 5 mg tablet 5 mg PO TID PRN pain #20 tab s 06/17/25 Allergies Allergies Allergy/AdvReac Type Severity Reaction Status Date / Time clopidogrel bisulfate * Allergy Severe Rash Verified 06/17/25 17:38 (From Plavix) erythromycin base Allergy Mild Rash Verified 06/17/25 17:38 (Erythromycin Base) Penicillins Allergy Mild Rash Verified 06/17/25 17:38 spironolactone Allergy Mild Rash Verified 06/17/25 17:38 diazepam (From Valium) AdvReac Mild Anxiety Verified 06/17/25 17:38 PFSH Active Problems All Active Problems (Updated 06/17/25 @ 17:44 by Nader Romero MD) Upper respiratory infection (Acute) Congestive heart failure (Acute) Compression fracture of lumbar vertebra (Acute) Acute lumbar back pain (Acute) Acute dyspnea (Acute) Poor intravenous access (Acute) Encounter for antineoplastic chemotherapy (Acute) Gastric ulcer (Acute) Myelodysplastic syndrome with excess blasts-1 (Acute) Anemia (Chronic) Rectal bleeding (Acute) Healthcare maintenance (Acute) Hepatosplenomegaly (Acute) Chronic pain (Acute) Complicated UTI (urinary tract infection) (Acute) Anemia (Acute) Pneumonia (Acute) Hematoma (Acute) Cellulitis of hand (Acute) Chronic sinusitis (Acute) Cat scratch of hand (Acute) Medical History Medical History (Updated 06/17/25 @ 17:44 by Nader Romero MD) Leukocytosis Implantable loop recorder present GI bleed Nausea vomiting and diarrhea Food poisoning Bronchitis, asthmatic Accidental fall Fracture of greater tuberosity of humerus Vomiting Hot flashes Anemia Generalized weakness Near syncope Dyspnea Urinary tract infection Dehydration Open wound of abdomen ISTAP type 1 skin tear of right forearm Open wound of right wrist Left leg cellulitis Shortness of breath Dizziness Gastrointestinal hemorrhage Anemia due to acute blood loss Venous stasis ulcer of left lower leg with edema of left lower leg Atrial fibrillation Non-pressure chronic ulcer of skin of other sites with fat layer exposed Esophageal varices determined by endoscopy Hyperlipidemia HTN (hypertension) ETOH abuse Hx of cholecystitis GI bleed due to NSAIDs Surgical History Surgical History History of vertebroplasty (~1979) T-[address] Leahy History of tonsillectomy and adenoidectomy History of bilateral cataract extraction History of appendectomy Family History Family History Sister Breast cancer Father CVA (cerebral vascular accident) Dementia Mother ALS (amyotrophic lateral sclerosis) Son Diabetes Social History Social History (Updated 06/14/25 @ 11:48 by Tabby Yoo RN) Smoking Status: Former smoker If you are a former smoker, when did you quit? (Date/Year): 07/26/2008 Number of Years Smoked: 65 How many cigarettes a day do you smoke? (20 cigarettes=1 Pk): 1 Second hand tobacco smoke exposure: No Do you dip or chew tobacco?: No Do you vape?: No Patient requests smoking cessation consult: No Initiate information on smoking cessation: No Living arrangement: At home (family in area ) Living Condition: Alone Level: Independent Do you feel safe in your home environment?: Yes History of physical, verbal, emotional, or financial abuse?: No ETOH Use: None Frequency: Occasional Substance Use: denies use POLST Patient has POLST: No POLST CPR Status: Attempt Resuscitation (CPR) Level of Medical Intervention: Full Treatment Exam Exam Vital Signs: Vital Signs x48h Temp Pulse Resp BP Pulse Ox O2 Flow Rate 06/17/25 18:02 4 06/17/25 18:00 75 20 120/77 91 L 4 06/17/25 17:56 73 20 118/71 93 4 06/17/25 16:52 73 18 06/17/25 15:43 78 18 105/59 L 91 L 4 06/17/25 15:15 37 C 78 18 110/66 98 Oxygen saturation is above 92% on room air. She is able to talk in complete sentences. Respiratory rate is not rapid. Constitutional normal general appearance, distress noted (mild) (due to back pain with movement, and also seems some dyspnea. ) and average body habitus Neck/C-Spine supple and no meningeal signs Lymph no lymphadenopathy noted Respiratory abnormal respiratory effort (shallow breathing) (mild), auscultation abnormal (diminished breath sound), wheezing noted (expiratory wheezes), rales noted (base) and no use of accessory muscles Cardiovascular normal heart rate noted, regular rhythm noted, murmur noted (diastolic) and (II/) and no edema Gastrointestinal abdomen soft to palpation, nontender to palpation and nondistended Back/Pelvis no thoracic spine tenderness, lumbar spine tenderness noted (Some tenderness noted at the upper lumbar area to palpation and percussion.) and thoracic spine ROM normal Neurology no focal motor deficit noted and no sensory deficits noted Results Vitals Vitals: Vital Signs - 24 hr 06/17/25 15:15 06/17/25 15:43 06/17/25 16:52 Temperature 37 C Temperature Source Temporal Artery Scan Pulse Rate 78 78 73 Respiratory Rate 18 18 18 Blood Pressure 110/66 105/59 L O2 Saturation 98 91 L Oxygen Delivery Method O2 Source Room air Nasal cannula If not protocol: Oxygen Flow, liters/minute 4 Pain Intensity 10 8 06/17/25 17:42 06/17/25 17:42 06/17/25 17:56 Temperature Temperature Source Pulse Rate 73 Respiratory Rate 20 Blood Pressure 118/71 O2 Saturation 93 Oxygen Delivery Method O2 Source Nasal cannula If not protocol: Oxygen Flow, liters/minute 4 Pain Intensity 8 8 10 06/17/25 18:00 06/17/25 18:02 Temperature Temperature Source Pulse Rate 75 Respiratory Rate 20 Blood Pressure 120/77 O2 Saturation 91 L Oxygen Delivery Method Nasal Cannula O2 Source Nasal cannula If not protocol: Oxygen Flow, liters/minute 4 4 Pain Intensity 10 Oxygen O2 Source Nasal cannula Labs Labs: Laboratory Tests 06/17/25 06/17/25 06/17/25 17:26 17:26 17:26 WBC 37.6 H* RBC 2.73 L Hgb 6.5 L* Hct 24.9 L MCV 91.2 MCH 23.8 L MCHC 26.1 L RDW 18.9 H Plt Count 214 MPV 10.5 Neut # (Auto) Not Reportable Lymph # (Auto) Not Reportable Jenkins # (Auto) Not Reportable Eos # (Auto) Not Reportable Baso # (Auto) Not Reportable Absolute Nucleated RBC Not Reportable Total Counted 100 Band Neuts % (Manual) 11 H Abnorm Lymph % (Manual) 0 Metamyelocytes % 3 H Myelocytes % 6 H Promyelocytes % 2 H Blast Cells % 4 H* Nucleated RBC % Not Reportable Neutrophils # (Manual) 24.1 H Lymphocytes # (Manual) 6.8 H Monocytes # (Manual) 0.8 Eosinophils # (Manual) 0.4 Basophils # (Manual) 0.0 Nucleated RBCs 24 Differential Comment MANUAL DIFFERENTIAL Platelet Estimate NORMAL (130-450,000) RBC Morph Micro Appear 3+ ANISOCYTOSIS 2+ HYPOCHROMASIA 1+ STOMATOCYTES Sodium Potassium Chloride Carbon Dioxide Anion Gap BUN Creatinine Estimated GFR (MDRD) Glucose Calcium Magnesium Total Bilirubin AST ALT Alkaline Phosphatase B-Natriuretic Peptide Total Protein Albumin Globulin Albumin/Globulin Ratio Lipase 06/17/25 06/17/25 06/17/25 17:26 17:26 17:26 WBC RBC Hgb Hct MCV MCH MCHC RDW Plt Count MPV Neut # (Auto) Lymph # (Auto) Jenkins # (Auto) Eos # (Auto) Baso # (Auto) Absolute Nucleated RBC Total Counted Band Neuts % (Manual) Abnorm Lymph % (Manual) Metamyelocytes % Myelocytes % Promyelocytes % Blast Cells % Nucleated RBC % Neutrophils # (Manual) Lymphocytes # (Manual) Monocytes # (Manual) Eosinophils # (Manual) Basophils # (Manual) Nucleated RBCs Differential Comment Platelet Estimate RBC Morph Micro Appear 1+ POLYCHROMASIA 1+ TEARDROP CELLS 2+ OVALOCYTES Sodium Potassium Chloride Carbon Dioxide Anion Gap BUN Creatinine Estimated GFR (MDRD) Glucose Calcium Magnesium Total Bilirubin AST ALT Alkaline Phosphatase B-Natriuretic Peptide Total Protein Albumin Globulin Albumin/Globulin Ratio Lipase 06/17/25 17:26 WBC RBC Hgb Hct MCV MCH MCHC RDW Plt Count MPV Neut # (Auto) Lymph # (Auto) Jenkins # (Auto) Eos # (Auto) Baso # (Auto) Absolute Nucleated RBC Total Counted Band Neuts % (Manual) Abnorm Lymph % (Manual) Metamyelocytes % Myelocytes % Promyelocytes % Blast Cells % Nucleated RBC % Neutrophils # (Manual) Lymphocytes # (Manual) Monocytes # (Manual) Eosinophils # (Manual) Basophils # (Manual) Nucleated RBCs Differential Comment Platelet Estimate RBC Morph Micro Appear 1+ SCHISTOCYTES Sodium 131 L Potassium 4.8 H Chloride 101 Carbon Dioxide 24 Anion Gap 6.0 BUN 16 Creatinine 1.3 Estimated GFR (MDRD) 39 L Glucose 129 H Calcium 8.7 Magnesium 2.0 Total Bilirubin 1.8 H AST 71 H ALT 23 Alkaline Phosphatase 121 B-Natriuretic Peptide 864 H Total Protein 6.2 L Albumin 3.6 Globulin 2.6 Albumin/Globulin Ratio 1.4 Lipase 20 Rads (name of study) chest xray: Relevant Findings:: Final report received and EMP independent interpretation of test Interpretation: EXAM: [id number] XR/[id number] ([id number]) PROCEDURE: XR Chest 1V INDICATIONS: cough and dyspnea TECHNIQUE: Single frontal view of the chest was obtained COMPARISON: 05/18/2025 FINDINGS: Instrumentation: Left-sided dual-chamber pacemaker Heart size, mediastinum and pulmonary vasculature: Cardiomegaly and mild vascular congestion Lungs and pleural spaces: Scattered atelectasis and or infiltrate. Pleural spaces clear. Osseous structures: Unremarkable IMPRESSION: Cardiomegaly and mild vascular congestion. Atherosclerotic vascular calcif ication noted in the aortic arch. Scattered atelectasis and or infiltrate Reviewed by: Randall Redmond MD on 06/17/2025 4:[address]: Relevant Findings:: Final report received and EMP independent interpretation of test (mild L2 anterior compression fx.) Interpretation: EXAM: [id number] CT/LSPWO ([id number]) PROCEDURE: CT Lumbar Spine WO INDICATIONS: pop and pain lumbar area lifting case of water. TECHNIQUE: Helical axial CT of the lumbar spine was obtained without contrast and reformatted in multiple planes. COMPARISON: CT abdomen pelvis 03/21/2025 FINDINGS: Bones: There is normal bony alignment. No acute vertebral body compression fra ctures. No suspicious lytic or blastic bony lesions. L2 compression fracture with less than 5% height loss, new from prior exam. No retropulsed fracture fragment Soft tissues: 3.6 cm infrarenal abdominal aortic aneurysm with mural calcification. 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 Severe central stenosis L4-5 IMPRESSION: Acute L2 compression fracture with less than 5% height loss and no retropulsed fracture fragment. Degenerative disc disease and arthropathy associated with severe central stenosis at L4-5. Infrarenal abdominal aortic aneurysm, 3.6 cm. Stable Reviewed by: Randall Redmond MD on 06/17/2025 4:15 PM AKST [facility] Medical Decision Making ED course ED course: The patient states she has had a cough and congestion with feeling of dyspnea an d difficulty deep breathing for the past several days to week. She had been diagnosed with a myeloid dysplasia and is due to get a port placed in 2 days. Has not noticed any edema. Some general aches but no fever. She does have a history of some heart disease in the past and is on Lasix normally. She has not noticed edema per se. She denies oxygen or inhaler use at home. She does have wheezing sounds diffusely. No noted leg edema. Perhaps some fine crackles at the bases on exam. Minimal heart murmurs heard. We can get a chest x-ray to evaluate. Respiratory panel is obtained. Will also check blood test to see her CBC and chemistry panel as well as a BNP to distinguish between a viral type illness and respiratory airflow issues versus heart failure. She had also felt an abrupt pain in her back a couple of days ago when lifting a case of water. She has been hurting there since with pain on ambulating. Denies leg numbness or weakness. She does have some pain in the left hip area which has been pre-existing. Initial test back are showing a chest x-ray with some diffuse interstitial changes which may be inflammatory. No focal infiltrates nor effusion noted. Lumbar CT scan showed an acute L2 compression fracture with the anterior vertebral body height loss of 5% only. Her CBC is resulting showing an expected elevated white count given her myelodysplastic disease and is comparable to recent white counts. Her hemoglobin is 6.5 and she would benefit from transfusion of a unit of blood similar to recent. She does have history of heart disease and could have some element of congestive failure though she does not really have leg swelling but does have some faint crackles in the bases. She was given Lasix IV to help with some of the dyspnea but also in preparation for receiving a unit of blood transfusion. She did feel of fair improvement after the nebulizer treatment so I do believe an element of her dyspnea is related to likely of viral respiratory illness. The respiratory panel is still pending. I did obtain it myself for nursing staff. The patient was given IV pain medication of hydromorphone for her lumbar back. This did occur 3 days ago and she has been ambulatory though with discomfort so this should not prohibit her subsequent discharge. She will need to be prescribed some pain medicine however. Care to Dr. Sung at change of shift. We are noting now that the patient is appearing hypoxic. Still able to talk in sentences. We can repeat the nebulizer treatment but currently she is on nasal cannula. Discharge Plan Discharge Condition: Stable Clinical Impression: Acute dyspnea, Acute lumbar back pain, Compression fracture of lumbar vertebra, Congestive heart failure, Upper respiratory infection, Myelodysplastic syndrome with excess blasts-1 Anemia Qualifiers: Anemia type: unspecified type Qualified Code(s): D64.9 - Anemia, unspecified Prescriptions: New oxycodone 5 mg tablet 5 mg PO TID PRN (Reason: pain) Qty: 20 0RF calcitonin (salmon) 200 unit/actuation spray,non-aerosol 1 spray intranasal (ALT) DAILY Qty: 3.7 0RF dexamethasone 2 mg tablet 2 mg PO DAILY Qty: 5 0RF No Action atorvastatin [Lipitor] 40 MG tablet 80 mg PO HS gabapentin 100 mg capsule 200 mg PO QPM amlodipine 5 MG tablet 5 mg PO DAILY ondansetron 4 MG tablet,disintegrating 4 mg translingual Q12H PRN (Reason: Nausea / Vomiting) multivitamin with folic acid [Thera] 1 TAB tablet 1 tab PO DAILYWM 0RF furosemide [Lasix] 20 mg tablet 20 mg PO DAILY Qty: 14 0RF metoprolol succinate 25 mg tablet extended release 24 hr 12.5 mg PO DAILY Patient Comments: TAKE 1/2 TABLET BY MOUTH ONCE DAILY diphenoxylate-atropine 2.5-0.025 mg tablet 1 - 2 tab PO Q6H PRN (Reason: diarrhea) Patient Comments: TAKE 1 TO 2 TABLETS BY MOUTH EVERY SIX HOURS NEEDED, up to 8 tablets daily Eliquis 5 mg tablet 5 mg PO BID pantoprazole 40 mg Tablet,Delayed Release (Dr/Ec) 40 mg PO DAILY ferrous sulfate [Feosol] 325 mg (65 mg iron) tablet 325 mg PO DAILY lidocaine 5 % adhesive patch,medicated 1 patch topical DAILY PRN (Reason: pain) Rx Instructions: leave on most painful area for up to 12 hrs temazepam 22.5 mg capsule 22.5 mg PO .qhs morphine [Avinza] 30 mg capsule, ER multiphase 24 hr 30 mg PO DAILY oxycodone-acetaminophen 10-325 mg tablet 1 - 2 tab PO Q6HR PRN (Reason: pain) cholecalciferol (vitamin D3) [Vitamin D3] 25 mcg (1,000 unit) capsule 2,000 unit PO DAILY Print Language: Bengali Stand Alone Forms: PCP List
[2025-06-17] MEDS: IPRATROPIUM/ALBUTEROL 3 ML NEB INH STA (16:48)
--- NOTE | 2025-06-17 17:07 | XRAY Report ---
PROCEDURE: XR Chest 1V INDICATIONS: cough and dyspnea TECHNIQUE: Single frontal view of the chest was obtained COMPARISON: 05/18/2025 FINDINGS: Instrumentation: Left-sided dual-chamber pacemaker Heart size, mediastinum and pulmonary vasculature: Cardiomegaly and mild vascular congestion Lungs and pleural spaces: Scattered atelectasis and or infiltrate. Pleural spaces clear. Osseous structures: Unremarkable IMPRESSION: Cardiomegaly and mild vascular congestion. Atherosclerotic vascular calcification noted in the aortic arch. Scattered atelectasis and or infiltrate Reviewed by: Randall Redmond MD on 06/17/2025 4:04 PM AKST Approved by: Randall Redmond MD on 06/17/2025 4:04 PM [facility] Station ID: [id number]
[2025-06-17] MEDS: FUROSEMIDE 40 MG/4 ML VIAL IVP STA (17:16)
--- NOTE | 2025-06-17 17:19 | CT Report ---
PROCEDURE: CT Lumbar Spine WO INDICATIONS: pop and pain lumbar area lifting case of water. TECHNIQUE: Helical axial CT of the lumbar spine was obtained without contrast and reformatted in multiple planes. COMPARISON: CT abdomen pelvis 03/21/2025 FINDINGS: Bones: There is normal bony alignment. No acute vertebral body compression fractures. No suspicious lytic or blastic bony lesions. L2 compression fracture with less than 5% height loss, new from prior exam. No retropulsed fracture fragment Soft tissues: 3.6 cm infrarenal abdominal aortic aneurysm with mural calcification. 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 Severe central stenosis L4-5 IMPRESSION: Acute L2 compression fracture with less than 5% height loss and no retropulsed fracture fragment. Degenerative disc disease and arthropathy associated with severe central stenosis at L4-5. Infrarenal abdominal aortic aneurysm, 3.6 cm. Stable Reviewed by: Randall Redmond MD on 06/17/2025 4:15 PM AK[facility] Approved by: Randall Redmond MD on 06/17/2025 4:15 PM [facility] Station ID: [id number]
[2025-06-17 17:36] LABS: HCT - HEMATOCRIT 24.9 % (37.0-47.0); MEAN PLATELET VOLUME 10.5 fL (7.9-10.8); PLT - PLATELET COUNT 214 10^3/uL (130-450); RED CELL DISTRIBUTION WIDTH 18.9 % (12.0-15.0)
[2025-06-17 17:40] LABS: ABNORMAL LYMPHS % (MANUAL) 0 %; BASOPHILS # (MANUAL) 0.0 10^3/uL (0-0.1); HGB - HEMOGLOBIN 6.5 g/dL (12.0-16.0)
[2025-06-17] MEDS: KETOROLAC 15 MG/ML VIAL IVP STA (17:42)
[2025-06-17] MEDS: HYDROmorphone 1 MG/ML CARPUJECT IVP STA ×2 (17:42→18:29)
[2025-06-17 17:50] LABS: ALT ALANINE AMINOTRANSFERASE 23.0 IU/L (10-60); AST ASPARTATE AMINOTRANSFERASE 71.0 IU/L (10-42); BUN - BLOOD UREA NITROGEN 16.0 mg/dL (6-20); CARBON DIOXIDE - CO2 24.0 mmol/L (21-32); CREATININE 1.3 mg/dL (0.6-1.3); GFR - MDRD 39.0 (>89)
--- NOTE | 2025-06-17 18:02 | ED Physician Documentation ---
ED Addendum Addendum Addendum: Care from Dr. Romero at 6 PM shift change. Briefly this is an 84-year-old woman who was lifting a case of water and developed sharp low back pain and on imaging today has been found to have an acute L2 compression fracture without spinal cord compromise. She is seeing Dr. Storey and was has myelodysplastic syndrome. Her hemoglobin today is low enough at 6.5 to mandate a 1 L transfusion and this is pending on signout. I think she will be able to go home with pain management after that. I do note that she is, at the time of signout, on 4 L of oxygen. She does not wear oxygen at home. Nurse feels like this may be due to to a uncooperative pulse oximeter and we will try to adjust. 1v CXR: Cardiomegaly and mild vascular congestion. Atherosclerotic vascular calcification noted in the aortic arch. Scattered atelectasis and or infiltrate I reviewed Dr. Storey's note, her blood has to be CMV negative and irradiated. I could not alter the order, but called the blood bank to clarify. Blood will have to be ordered from [facility] I have low suspicion for PE causing her hypoxemia, more likely this is high- output heart failure from her anemia which is corroborated by her chest x-ray and elevated BNP. On my evaluation she has already received some Lasix and a b reathing treatment. Discharge Plan Discharge Patient Disposition: [facility] DC/Xfer Condition: Serious Clinical Impression: Hypoxia, Acute dyspnea, Acute lumbar back pain, Compression fracture of lumbar vertebra, Congestive heart failure, Myelodysplastic syndrome with excess blasts- 1, Acute bronchitis due to Rhinovirus Anemia Qualifiers: Anemia type: unspecified type Qualified Code(s): D64.9 - Anemia, unspecified Prescriptions: New oxycodone 5 mg tablet 5 mg PO TID PRN (Reason: pain) Qty: 20 0RF calcitonin (salmon) 200 unit/actuation spray,non-aerosol 1 spray intranasal (ALT) DAILY Qty: 3.7 0RF dexamethasone 2 mg tablet 2 mg PO DAILY Qty: 5 0RF No Action atorvastatin [Lipitor] 40 MG tablet 80 mg PO HS gabapentin 100 mg capsule 200 mg PO QPM amlodipine 5 MG tablet 5 mg PO DAILY ondansetron 4 MG tablet,disintegrating 4 mg translingual Q12H PRN (Reason: Nausea / Vomiting) multivitamin with folic acid [Thera] 1 TAB tablet 1 tab PO DAILYWM 0RF furosemide [Lasix] 20 mg tablet 20 mg PO DAILY Qty: 14 0RF metoprolol succinate 25 mg tablet extended release 24 hr 12.5 mg PO DAILY Patient Comments: TAKE 1/2 TABLET BY MOUTH ONCE DAILY diphenoxylate-atropine 2.5-0.025 mg tablet 1 - 2 tab PO Q6H PRN (Reason: diarrhea) Patient Comments: TAKE 1 TO 2 TABLETS BY MOUTH EVERY SIX HOURS NEEDED, up to 8 tablets daily Eliquis 5 mg tablet 5 mg PO BID pantoprazole 40 mg Tablet,Delayed Release (Dr/Ec) 40 mg PO DAILY ferrous sulfate [Feosol] 325 mg (65 mg iron) tablet 325 mg PO DAILY lidocaine 5 % adhesive patch,medicated 1 patch topical DAILY PRN (Reason: pain) Rx Instructions: leave on most painful area for up to 12 hrs temazepam 22.5 mg capsule 22.5 mg PO .qhs morphine [Avinza] 30 mg capsule, ER multiphase 24 hr 30 mg PO DAILY oxycodone-acetaminophen 10-325 mg tablet 1 - 2 tab PO Q6HR PRN (Reason: pain) cholecalciferol (vitamin D3) [Vitamin D3] 25 mcg (1,000 unit) capsule 2,000 unit PO DAILY Print Language: Slovak
[2025-06-17 18:04] LABS: BAND NEUTROPHILS % (MANUAL) 11 %; EOSINOPHILS # (MANUAL) 0.4 10^3/uL (0-0.7); LYMPHOCYTES # (MANUAL) 6.8 10^3/uL (1.5-3.5); LYMPHOCYTES % (MANUAL) 18 %; METAMYELOCYTES % (MANUAL) 3 %; MONOCYTES # (MANUAL) 0.8 10^3/uL (0.0-1.0); MYELOCYTES % (MANUAL) 6 %; NEUTROPHILS # (MANUAL) 24.1 10^3/uL (1.5-6.6); PROMYELOCYTES % (MANUAL) 2 %
[2025-06-17 18:05] LABS: BLAST CELLS % (MANUAL) 4 %; NUCLEATED RBC (MANUAL) 24 %
[2025-06-17 18:07] LABS: PLATELET ESTIMATE, MANUAL NORMAL (130-450,000) (NORMAL)
[2025-06-17] MEDS ORDERED: ONDANSETRON 4 MG/2 ML VIAL IVP PRN (18:26)
[2025-06-17] MEDS ORDERED: TEMAZEPAM 15 MG CAPSULE PO PRN (18:26)
[2025-06-17 18:42] LABS: B. PARAPERTUSSIS- RESP PCR PAN NOT DETECTED; B. PERTUSSIS- RESP PCR PANEL NOT DETECTED; C. PNEUMONIAE- RESP PCR PANEL NOT DETECTED; CORONAVIRUS 229E-RESP PCR NOT DETECTED; CORONAVIRUS HKU1-RESP PCR NOT DETECTED; CORONAVIRUS NL63-RESP PCR NOT DETECTED; CORONAVIRUS OC43-RESP PCR NOT DETECTED; HUMAN METAPNEUMOVIRUS NOT DETECTED; INFLUENZA A- RESP PCR PANEL NOT DETECTED; INFLUENZA B - RESP PCR PANEL NOT DETECTED; M. PNEUMONIAE- RESP PCR PANEL NOT DETECTED; PARAINFLUENZA VIRUS 1 NOT DETECTED; PARAINFLUENZA VIRUS 2 NOT DETECTED; PARAINFLUENZA VIRUS 4 NOT DETECTED; RHINOVIRUS/ENTEROVIRUS DETECTED; RSV- RESP PCR PANEL NOT DETECTED; SARS-CoV-2 -RESP PCR PANEL NOT DETECTED
[2025-06-17] MEDS: FUROSEMIDE 20 MG/2 ML VIAL IVP SCH (19:37)
[2025-06-17] MEDS: APIXABAN 5 MG TABLET PO SCH (20:10)
[2025-06-17] MEDS: ATORVASTATIN 40 MG TABLET PO SCH (20:10)
--- NOTE | 2025-06-17 21:49 | ED Physician Documentation ---
ED Addendum Addendum Addendum: Patient was handed off to me by Dr. Archibald at shift change on 06/17 at 2200 hrs. This patient presented with acute back pain and was found to have a lumbar fracture likely sustained earlier today when she was lifting water at [employer]. However during her evaluation she was found to be anemic. She does have a history of myelodysplastic syndrome. She received a unit of CMV negative, irradiated blood. On repeat labs this morning, her hemoglobin is still low at 6.9. Therefore, I discussed her presentation with blood bank, who are reaching out to nearby hospital to obtain additional units of CMV negative and leukoreduced blood. Disposition at time of handoff is boarding in ER awaiting admission to the hospital. Discharge Plan Discharge Patient Disposition: 66 [facility] DC/Xfer Condition: Serious Clinical Impression: Hypoxia, Acute dyspnea, Acute lumbar back pain, Compression fracture of lumbar vertebra, Congestive heart failure, Myelodysplastic syndrome with excess blasts- 1, Acute bronchitis due to Rhinovirus Anemia Qualifiers: Anemia type: unspecified type Qualified Code(s): D64.9 - Anemia, unspecified Prescriptions: New oxycodone 5 mg tablet 5 mg PO TID PRN (Reason: pain) Qty: 20 0RF calcitonin (salmon) 200 unit/actuation spray,non-aerosol 1 spray intranasal (ALT) DAILY Qty: 3.7 0RF dexamethasone 2 mg tablet 2 mg PO DAILY Qty: 5 0RF No Action atorvastatin [Lipitor] 40 MG tablet 80 mg PO HS gabapentin 100 mg capsule 200 mg PO QPM amlodipine 5 MG tablet 5 mg PO DAILY ondansetron 4 MG tablet,disintegrating 4 mg translingual Q12H PRN (Reason: Nausea / Vomiting) multivitamin with folic acid [Thera] 1 TAB tablet 1 tab PO DAILYWM 0RF furosemide [Lasix] 20 mg tablet 20 mg PO DAILY Qty: 14 0RF metoprolol succinate 25 mg tablet extended release 24 hr 12.5 mg PO DAILY Patient Comments: TAKE 1/2 TABLET BY MOUTH ONCE DAILY diphenoxylate-atropine 2.5-0.025 mg tablet 1 - 2 tab PO Q6H PRN (Reason: diarrhea) Patient Comments: TAKE 1 TO 2 TABLETS BY MOUTH EVERY SIX HOURS NEEDED, up to 8 tablets daily Eliquis 5 mg tablet 5 mg PO BID pantoprazole 40 mg Tablet,Delayed Release (/Ec) 40 mg PO DAILY ferrous sulfate [Feosol] 325 mg (65 mg iron) tablet 325 mg PO DAILY lidocaine 5 % adhesive patch,medicated 1 patch topical DAILY PRN (Reason: pain) Rx Instructions: leave on most painful area for up to 12 hrs temazepam 22.5 mg capsule 22.5 mg PO .qhs morphine [Avinza] 30 mg capsule, ER multiphase 24 hr 30 mg PO DAILY oxycodone-acetaminophen 10-325 mg tablet 1 - 2 tab PO Q6HR PRN (Reason: pain) cholecalciferol (vitamin D3) [Vitamin D3] 25 mcg (1,000 unit) capsule 2,000 unit PO DAILY Print Language: Nigerien
[2025-06-17] MEDS: ACETAMINOPHEN 500 MG TABLET PO PRN (22:21)
[2025-06-17] MEDS: IPRATROPIUM/ALBUTEROL 3 ML NEB INH SCH (23:01)
[2025-06-17] MEDS ORDERED: IPRATROPIUM/ALBUTEROL 3 ML NEB INH PRN (23:09)
[2025-06-18] MEDS: oxyCODONE 5 MG TABLET PO PRN (00:33)
[2025-06-18] MEDS: MELATONIN 3 MG TABLET PO SCH (00:33)
[2025-06-18 05:32] LABS: HCT - HEMATOCRIT 25.8 % (37.0-47.0); MEAN PLATELET VOLUME 11.7 fL (7.9-10.8); PLT - PLATELET COUNT 160 10^3/uL (130-450); RED CELL DISTRIBUTION WIDTH 18.6 % (12.0-15.0)
[2025-06-18 05:38] LABS: HGB - HEMOGLOBIN 6.9 g/dL (12.0-16.0)
[2025-06-18 05:40] LABS: ABNORMAL LYMPHS % (MANUAL) 0 %
[2025-06-18 05:41] LABS: BUN - BLOOD UREA NITROGEN 20.0 mg/dL (6-20); CARBON DIOXIDE - CO2 25.0 mmol/L (21-32); CREATININE 1.4 mg/dL (0.6-1.3); GFR - MDRD 36.0 (>89)
[2025-06-18] MEDS: PANTOPRAZOLE 40 MG TABLET PO SCH (06:26)
[2025-06-18 06:54] LABS: BAND NEUTROPHILS % (MANUAL) 5 %; BASOPHILS # (MANUAL) 0.3 10^3/uL (0-0.1); BASOPHILS % (MANUAL) 1 %; EOSINOPHILS # (MANUAL) 0.9 10^3/uL (0-0.7); LYMPHOCYTES # (MANUAL) 1.8 10^3/uL (1.5-3.5); LYMPHOCYTES % (MANUAL) 6 %; METAMYELOCYTES % (MANUAL) 2 %; MONOCYTES # (MANUAL) 2.4 10^3/uL (0.0-1.0); MYELOCYTES % (MANUAL) 3 %; NEUTROPHILS # (MANUAL) 20.9 10^3/uL (1.5-6.6); NUCLEATED RBC (MANUAL) 16 %; PROMYELOCYTES % (MANUAL) 1 %
[2025-06-18 07:02] LABS: PLATELET ESTIMATE, MANUAL NORMAL (130-450,000) (NORMAL)
[2025-06-18 07:04] LABS: BLAST CELLS % (MANUAL) 6 %
[2025-06-18 07:05] LABS: PLATELET MORPHOLOGY NORMAL APP (NORMAL)
--- NOTE | 2025-06-18 08:23 | ED Physician Documentation ---
ED Addendum Addendum Addendum: The patient is appearing comfortable at this time. She is pleasant and smiling. She is feeling hungry for breakfast. She states her breathing has improved overnight. She is still on nasal cannula oxygen at 95% 3 L. We can try decreasing it some. Her lungs still had a touch of wheezing but generally improved. She states she had had improvement with the nebulizer treatments initially but did not feel that as much overnight and they were discontinued so she was able to sleep. We can have the min as a as needed. Her blood count had improved with the 1 L 1 unit of blood from yesterday to 6.9. It was ordered to give another transfusion and that is coming from the [facility]. She still has her same diagnoses though they are improving but she will still likely need hospitalization once beds become available later today. There is still edema in both legs. Mild crackles at the bases. She may benefit from a dose of Lasix again today. Discharge Plan Discharge Patient Disposition: 66 [facility] DC/Xfer Condition: Serious Clinical Impression: Hypoxia, Acute dyspnea, Acute lumbar back pain, Compression fracture of lumbar vertebra, Congestive heart failure, Myelodysplastic syndrome with excess blasts- 1, Acute bronchitis due to Rhinovirus Anemia Qualifiers: Anemia type: unspecified type Qualified Code(s): D64.9 - Anemia, unspecified Prescriptions: New oxycodone 5 mg tablet 5 mg PO TID PRN (Reason: pain) Qty: 20 0RF calcitonin (salmon) 200 unit/actuation spray,non-aerosol 1 spray intranasal (ALT) DAILY Qty: 3.7 0RF dexamethasone 2 mg tablet 2 mg PO DAILY Qty: 5 0RF No Action atorvastatin [Lipitor] 40 MG tablet 80 mg PO HS gabapentin 100 mg capsule 200 mg PO QPM amlodipine 5 MG tablet 5 mg PO DAILY ondansetron 4 MG tablet,disintegrating 4 mg translingual Q12H PRN (Reason: Nausea / Vomiting) multivitamin with folic acid [Thera] 1 TAB tablet 1 tab PO DAILYWM 0RF furosemide [Lasix] 20 mg tablet 20 mg PO DAILY Qty: 14 0RF metoprolol succinate 25 mg tablet extended release 24 hr 12.5 mg PO DAILY Patient Comments: TAKE 1/2 TABLET BY MOUTH ONCE DAILY diphenoxylate-atropine 2.5-0.025 mg tablet 1 - 2 tab PO Q6H PRN (Reason: diarrhea) Patient Comments: TAKE 1 TO 2 TABLETS BY MOUTH EVERY SIX HOURS NEEDED, up to 8 tablets daily Eliquis 5 mg tablet 5 mg PO BID pantoprazole 40 mg Tablet,Delayed Release (Dr/Ec) 40 mg PO DAILY ferrous sulfate [Feosol] 325 mg (65 mg iron) tablet 325 mg PO DAILY lidocaine 5 % adhesive patch,medicated 1 patch topical DAILY PRN (Reason: pain) Rx Instructions: leave on most painful area for up to 12 hrs temazepam 22.5 mg capsule 22.5 mg PO .qhs morphine [Avinza] 30 mg capsule, ER multiphase 24 hr 30 mg PO DAILY oxycodone-acetaminophen 10-325 mg tablet 1 - 2 tab PO Q6HR PRN (Reason: pain) cholecalciferol (vitamin D3) [Vitamin D3] 25 mcg (1,000 unit) capsule 2,000 unit PO DAILY Print Language: Cymraes
[2025-06-18] MEDS: METOPROLOL SUCCINATE 25 MG TABLET PO SCH (09:00)
[2025-06-18] MEDS: ACETAMINOPHEN 325 MG TABLET PO SCH (09:00)
[2025-06-18 09:50] LABS: GLUCOSE, URINE (UA) NEGATIVE (NEGATIVE); KETONES,URINE (UA) NEGATIVE (NEGATIVE); OCCULT BLOOD,URINE NEGATIVE (NEGATIVE)
[2025-06-18 09:58] LABS: CASTS, URINE 3-5 Hyaline Casts /LPF; SQUAMOUS EPITHELIAL CELL,UR FEW Squamous (<= Few)
[2025-06-18] MEDS: ACETAMINOPHEN 500 MG TABLET PO SCH (13:45)
--- NOTE | 2025-06-18 15:27 | HISTORY & PHYSICAL EXAMINATION ---
<Statement entered by Uriel Julio, DO - 06/18/25 17:45> I was present with the [employer] student on the hospitalist service. I personally verified the history of present illness and performed the physical examination and medical decision making. I have verified the students documentation for this encounter and agree with the plan of care below. In addition very pleasant 84 yo female recently seen at this hospital, discharged a month ago. She has a new diagnosis of myelodysplastic syndrome which is fairly aggressive, she has required transfusions before for this. She presents after an acute respiratory illness for the last several days. She says her son had a cold previous to this. Compounding her symptoms, she injured her low back while lifting a jug of water. She has an acute L2 compression fracture with less than 5% height loss. Her back pain is her biggest concern. In the ED, she was found to have hemoglobin of 6.5 down down from 7.9 on 05/25. She has been transfused 1 unit which brought her from 6.5-6.9. Second unit is planned. Of note, after discussing with the blood bank, she likely does not need special CMV seronegative blood. She needs leukoreduced and irradiated blood. This can be done here without transferring blood from the [facility] which was done earlier today in order to get CMV antibody negative blood. - I discussed with the ED provider, Dr. Romero, and have elected to admit this patient to observation status to complete her transfusions - Continue second unit of PRBC - CBC to follow, transfuse third unit if Hgb less than 8 - Pain management for back pain including scheduled Tylenol, as needed narcotics and lidocaine patch - Consideration to continue on steroids for pain management - She is now on room air, was able to wean during her interview - Continue to monitor oxygen saturations, goal sat greater than 92% - Suspect med ready in 1 to 2 days - Will keep n.p.o. if surgery opts to put her port in tomorrow, if her blood counts come up, she is medically appropriate - SCD for VTE prophylaxis I spent a total of 52 minutes in the care of this patient today. This time was spent reviewing labs, vital signs, imaging, interviewing and examining the patient, and discussing plan of care with them and their other care providers. Patient has a critical anemia as a result of her exacerbation of a chronic illness that poses threat to life. We made the decision to admit to observation status. [address] Goals of care were discussed on admission. She agrees with her prior POLST from last month. She is DNR/full treatment. Her daughter is her surrogate decision maker. Chief Complaint Chief Complaint Chief Complaint: Upper respiratory infection (Acute), Anemia (Acute) CPT Codes:: 52703 History of Present Illness Admitted From Admitted From:: Emergency Dept History Obtained From Records Reviewed: Yes History obtained from: Patient, ED Exam Limitations: None History of Present Illness HPI Comment/Other: Pt presents with c/c of dyspnea, cough, and congestion ongoing for several days, urged by daughter to come into the ER as condition worsened. On intake, she was found to be acutely anemic with a Hgb of 6.5., and tested positive for rhinovirus/enterovirus on swab, with leukocytosis of 37.6. CXR showed cardiomegaly with scattered atelectasis or infiltrate and no appreciable consolidation. She also complains of lower back pain secondary to a lifting injury and relates she felt a pop and pain. She received a lumbar spine CT which demonstrated a new L2 compression fx with no retropulsion and <5% height loss. Pt also has history of MDS which is being managed by Dr. Storey and for which she had received a bone marrow biopsy 05/21 of this year for formal dx of same. Pt is due to receive a PICC line for chemo infusion, referral for [facility] for same. Meds/Allgy Home Medications Ambulatory Orders Medication Instructions Recorded Confirmed atorvastatin 40 mg tablet (Lipitor) 80 mg PO HS 06/18/25 Held on 06/18/25. Instructions: Per Provider amlodipine 5 mg tablet 5 mg PO DAILY 01/14/2406/18 Held on 05/21/25. Instructions: Resume on 05/28/25. Hold until follow up PCP. Blood pressure normal to low while here. ondansetron 4 mg disintegrating 4 mg translingual Q12H PRN Nausea 01/14/24 06/18/25 tablet / Vomiting multivitamin with folic acid 400 1 tab PO DAILYWM 12/2506/18/25 mcg tablet (Thera) metoprolol succinate 25 mg 12.5 mg PO DAILY 03/18/25 1 08/18/24 tablet,extended release 24 hr diphenoxylate-atropine 2.5 1 - 2 tab PO Q6H PRN diarrh ea 03/19/25 06/18/25 mg-0.025 mg tablet apixaban 5 mg tablet (Eliquis) 5 mg PO BID 05/11/25 Held on 05/21/25. Instructions: Resume on 05/28/25. Hold likely indefinitely. cholecalciferol (vitamin D3) 25 2,000 unit PO DAILY 06/18/25 mcg (1,000 unit) capsule (Vitamin D3) ferrous sulfate 325 mg (65 mg 325 mg PO DAILY 06/14/25 06/18/25 iron) tablet (Feosol) lidocaine 5 % topical patch 1 patch topical DAILY PRN pain 06/14/25 06/18/25 oxycodone-acetaminophen 10 mg-325 1 tab PO Q6HR PRN pa in 06/14/25 06/18/25 mg tablet pantoprazole 40 mg tablet,delayed 40 mg PO DAILY 06/1406/18/25 release temazepam 22.5 mg capsule 22.5 mg PO HS 06/14/2506/18 calcitonin (salmon) 200 1 spray intranasal (ALT) AUGUSTUS LY 06/17/25 unit/actuation nasal spray #3.7 mL dexamethasone 2 mg tablet 2 mg PO DAILY #5 tabs oxycodone 5 mg tablet 5 mg PO TID PRN pain #20 tab s 06/17/25 duloxetine 60 mg capsule,delayed 60 mg PO DAILY 06/18/25 release (Cymbalta) furosemide 20 mg tablet (Lasix) 20 mg PO BID 06/18/25 06/18/25 gabapentin 400 mg capsule 400 mg PO BID 06/18/2506/18 hydrocodone 10 mg-acetaminophen 2 tab PO Q6H PRN pain 06/18/25 06/18/25 325 mg tablet ipratropium bromide 42 mcg (0.06 2 spray intranasal TI D allergy 06/18/25 06/18/25 %) nasal spray symptoms morphine 30 mg tablet,extended 30 mg PO DAILY 06/18/25 06/18/25 release sucralfate 1 gram tablet 1 g PO QACHS 06/18/25 trazodone 100 mg tablet 200 mg PO HS 06/18/25 Allergies Allergies Allergy/AdvReac Type Severity Reaction Status Date / Time clopidogrel bisulfate * Allergy Severe Rash Verified 06/17/25 17:38 (From Plavix) erythromycin base Allergy Mild Rash Verified 06/17/25 17:38 (Erythromycin Base) Penicillins Allergy Mild Rash Verified 06/17/25 17:38 spironolactone Allergy Mild Rash Verified 06/17/25 17:38 diazepam (From Valium) AdvReac Mild Anxiety Verified 06/17/25 17:38 [facility] Active Problems All Active Problems (Updated 06/18/25 @ 16:00 by Marcelo Broussard) Myelodysplastic disease (Acute) Anemia, chronic disease (Chronic) Compression fracture of L2 lumbar vertebra (Acute) Upper respiratory infection, viral (Acute) Acute bronchitis due to Rhinovirus (Acute) Hypoxia (Acute) Congestive heart failure (Acute) Compression fracture of lumbar vertebra (Acute) Acute lumbar back pain (Acute) Acute dyspnea (Acute) Poor intravenous access (Acute) Encounter for antineoplastic chemotherapy (Acute) Gastric ulcer (Acute) Myelodysplastic syndrome with excess blasts-1 (Acute) Anemia (Chronic) Rectal bleeding (Acute) Healthcare maintenance (Acute) Hepatosplenomegaly (Acute) Chronic pain (Acute) Complicated UTI (urinary tract infection) (Acute) Anemia (Acute) Pneumonia (Acute) Hematoma (Acute) Cellulitis of hand (Acute) Chronic sinusitis (Acute) Cat scratch of hand (Acute) Medical History Medical History (Updated 06/18/25 @ 16:00 by Marcelo Broussard) Leukocytosis Implantable loop recorder present GI bleed Nausea vomiting and diarrhea Food poisoning Bronchitis, asthmatic Accidental fall Fracture of greater tuberosity of humerus Vomiting Hot flashes Anemia Generalized weakness Near syncope Dyspnea Urinary tract infection Dehydration Open wound of abdomen ISTAP type 1 skin tear of right forearm Open wound of right wrist Left leg cellulitis Shortness of breath Dizziness Gastrointestinal hemorrhage Anemia due to acute blood loss Venous stasis ulcer of left lower leg with edema of left lower leg Atrial fibrillation Non-pressure chronic ulcer of skin of other sites with fat layer exposed Esophageal varices determined by endoscopy Hyperlipidemia HTN (hypertension) ETOH abuse Hx of cholecystitis GI bleed due to NSAIDs Surgical History Surgical History History of vertebroplasty (~1979) T-10 isaiah Leahy History of tonsillectomy and adenoidectomy History of bilateral cataract extraction History of appendectomy Family History Family History Sister Breast cancer Father CVA (cerebral vascular accident) Dementia Mother ALS (amyotrophic lateral sclerosis) Son Diabetes Social History Social History (Updated 06/14/25 @ 11:48 by Tabby Yoo, SUJATHA) Smoking Status: Former smoker If you are a former smoker, when did you quit? (Date/Year): 07/26/2008 Number of Years Smoked: 65 How many cigarettes a day do you smoke? (20 cigarettes=1 Pk): 1 Second hand tobacco smoke exposure: No Do you dip or chew tobacco?: No Do you vape?: No Patient requests smoking cessation consult: No Initiate information on smoking cessation: No Living arrangement: At home (family in area ) Living Condition: Alone Level: Assisted Home Mobility Equipment: Walker Do you feel safe in your home environment?: No History of physical, verbal, emotional, or financial abuse?: No ETOH Use: None Frequency: Occasional Substance Use: denies use POLST Patient has POLST: No POLST CPR Status: Attempt Resuscitation (CPR) (Pt verbally endorses DNR, but does not have a POLST on file yet. ) Level of Medical Intervention: Full Treatment Review of Systems Constitutional Denies: Fatigue, Fever, Chills, Malaise, Weakness, Diaphoresis, Night sweats, Changes in appetite or eating habits, Poor appetite, Weight gain, Weight loss or Change in sleep pattern Cardiovascular Reports: swelling of feet/ankles; Denies: chest pain, Syncope or lightheadedness Respiratory Reports: Wheezing (Low grade end expiratory wheezing); Denies: SOB at rest Gastrointestinal Denies: Abdominal pain, Abdominal distention, Nausea or Vomiting Musculoskeletal Reports: Back pain Neurological Denies: Headache or General weakness Endocrine Denies: Fatigue Hematologic/Lymphatic Reports: Anemia Allergic/Immunologic Reports: Wheezing (Low grade end expiratory wheezing) Exam Exam Vital Signs: Vital Signs x48h Temp Pulse Pulse Pulse Resp BP BP 06/18/25 16:18 36.5 C 73 18 113/55 L 06/18/25 14:45 36.1 C L 64 19 118/100 H 06/18/25 14:28 36.3 C L 69 19 136/68 H 06/18/25 13:15 36.6 C 62 16 113/58 L 06/18/25 12:45 60 18 118/76 06/18/25 12:00 60 16 116/63 06/18/25 11:00 60 14 116/63 06/18/25 10:00 61 18 112/60 Pulse Ox O2 Flow Rate 06/18/25 16:18 95 06/18/25 14:45 97 2 06/18/25 14:28 95 2 06/18/25 13:15 99 2 06/18/25 12:45 96 3 06/18/25 12:00 94 3 06/18/25 11:00 93 3 06/18/25 10:00 95 3 Constitutional normal general appearance, no apparent distress and alert HENMT normocephalic Eyes PERRL Neck/C-Spine visual inspection normal Respiratory breath sounds equal bilaterally, normal respiratory effort, no wheezes (Mild end expiratory wheezes bilaterally) and no use of accessory muscles Cardiovascular regular rhythm noted Gastrointestinal abdomen normal to inspection, abdomen firm to palpation, nontender to palpation, nondistended, normoactive bowel sounds, no hepatosplenomegaly, no masses, no pulsatile mass, no ascites and no hernia Genitourinary no CVA tenderness and bladder normal to palpation Extremities no tenderness 2+ pitting edema in bilateral lower extremities, negative Naseem sign, no cords noted. Neurology speech normal and GCS 15 Skin skin color normal Conclusion/Plan Problem List (1) Anemia, chronic disease: Plan: Condition: Pt presents with acute anemia, presumed to be of chronic disease origin. Pt clinical presentation good despite degree of anemia, with good mentation, normovolemia, and no pallor noted nor fatigue endorsed. Assistance: Blood products transfusion and CBC/CMP monitoring. Risk: Risk of transfusion-related sequelae, exacerbation of current condition, DVT. Expected LOS: ~2-3 midnights Monitor: CBC w/ diff continual monitoring, with labs Qday. At lowest value, Hgb was 6.5, continues to remain under 7. Evaluate: Pt BP and clinical presentation actually quite good given degree of anemia, but will continue to monitor course closely as blood products are administered, as well as for transfusion reactions. Assess/add: Microcytic and hypochromic anemia, presumed chronic disease source. Will continue to trend CBC and CMP to monitor for infusion efficacy and any organ function or electrolytic derangements. Treat: Pt received 2 units of leukoreduced pRBCs so far, further transfusion orders cancelled pending f/u labs. (2) Upper respiratory infection, viral: Plan: Monitor: Pt continues to sat well on RA to high 90's. Supportive care for viral PNA, no indication for antiviral therapy at this time. Evaluate: Dyspnea largely resolved at this time. Pt was given x1 albuterol tx with resolution of symptoms the night prior, and has denied any acute SOB latent at time of inpatient exam. Pt had been on 3LPM via CA, but related she didn't feel the need for it anymore and was discontinued.Continue to assess respiratory function and effort, including reinitiation of oxygen therapy if needed. Assess/add: No indication at this time to add any respiratory specific testing to current management. Treat: No current indications for medication therapy, will consider duoneb, steroidal, or oxygen therapy if condition deteriorates. Condition: Currently improved, no respiratory distress or increased WOB endorsed or noted during pt encounter. Assistance: Monitoring and medication intervention as needed. Expected LOS: Dependent on time to PICC placement; prospectively ~2/3 midnights. (3) Compression fracture of L2 lumbar vertebra: Plan: Monitor: Pt has a nondisplaced L2 compression fracture with less than 5% height loss and no retropulsion into the spinal canal. Evaluate: Monitor for pain mgmt PRN, pt denies any significant losss of mobility secondary to this complaint. Discharge instructions will include activity modification to reduce chances of nonunion or continued compression. Assess/add: Pt pn currently well controlled on low dose Oxycodone, will modify/DC/change medication PRN. Treat: Oxycodone 5mg PRN, modify to acetaminophen/ibuprofen if indicated. Plan Monitor condition as supportive care progresses for viral PNA, transfusions to correct anemia are administered, and as PICC line placement procedure is performed. Lab Results 06/18/25 05:17 06/18/25 05:17 Diagnostic Imaging Results Diagnostic Imaging Results: positive Final report reviewed and Read independently Core Measures Anticipated LOS I expect patient to be DC'd or transferred within 96 hours.: Yes DVT/VTE - Prophylaxis VTE/DVT Device ordered at admit?: Yes VTE/DVT Prophylaxis med ordered at admit?: No Not Ordered - Medical Reason: Contraindicated (Anemia) Stroke - Rehab Assessment Rehab services assessment to be ordered?: No Not Ordered - Medical Reason: Not indicated AMI - Statin at Admit Aspirin Prescribed on Admit: No Not Ordered - Medical Reason: Not indicated
--- NOTE | 2025-06-18 16:09 | PHARMACY PROGRESS NOTE ---
Best Possible Medication History Admit Date and Time: 06/18/25 196092 Home Medications Medication Instructions Recorded Confirmed Type atorvastatin 40 mg tablet (Lipitor) 80 mg PO HS 06/18/25 History Held on 06/18/25. Instructions: Per Provider amlodipine 5 mg tablet 5 mg PO DAILY 01/14/2406/18 History Held on 05/21/25. Instructions: Resume on 05/28/25. Hold until follow up PCP. Blood pressure normal to low while here. ondansetron 4 mg disintegrating 4 mg translingual Q12H PRN Nausea 01/14/24 06/18/25 History tablet / Vomiting multivitamin with folic acid 400 1 tab PO DAILYWM 12/2506/18/25 Rx mcg tablet (Thera) metoprolol succinate 25 mg 12.5 mg PO DAILY 03/18/25 1 08/18/24 History tablet,extended release 24 hr diphenoxylate-atropine 2.5 1 - 2 tab PO Q6H PRN diarrh ea 03/19/25 06/18/25 History mg-0.025 mg tablet apixaban 5 mg tablet (Eliquis) 5 mg PO BID 05/11/25 History Held on 05/21/25. Instructions: Resume on 05/28/25. Hold likely indefinitely. cholecalciferol (vitamin D3) 25 2,000 unit PO DAILY 06/18/25 History mcg (1,000 unit) capsule (Vitamin D3) ferrous sulfate 325 mg (65 mg 325 mg PO DAILY 06/14/25 06/18/25 History iron) tablet (Feosol) lidocaine 5 % topical patch 1 patch topical DAILY PRN pain 06/14/25 06/18/25 History oxycodone-acetaminophen 10 mg-325 1 tab PO Q6HR PRN pa in 06/14/25 06/18/25 History mg tablet pantoprazole 40 mg tablet,delayed 40 mg PO DAILY 06/1406/18/25 History release temazepam 22.5 mg capsule 22.5 mg PO HS 06/14/2506/18 History calcitonin (salmon) 200 1 spray intranasal (ALT) AUGUSTUS LY 06/17/25 Rx unit/actuation nasal spray #3.7 mL dexamethasone 2 mg tablet 2 mg PO DAILY #5 tabs Rx oxycodone 5 mg tablet 5 mg PO TID PRN pain #20 tab s 06/17/25 Rx duloxetine 60 mg capsule,delayed 60 mg PO DAILY 06/18/25 History release (Cymbalta) furosemide 20 mg tablet (Lasix) 20 mg PO BID 06/18/25 06/18/25 History gabapentin 400 mg capsule 400 mg PO BID 06/18/2506/18 History hydrocodone 10 mg-acetaminophen 2 tab PO Q6H PRN pain 06/18/25 06/18/25 History 325 mg tablet ipratropium bromide 42 mcg (0.06 2 spray intranasal TI D allergy 06/18/25 06/18/25 History %) nasal spray symptoms morphine 30 mg tablet,extended 30 mg PO DAILY 06/18/25 06/18/25 History release sucralfate 1 gram tablet 1 g PO QACHS 06/18/25 History trazodone 100 mg tablet 200 mg PO HS 06/18/25 History Processed by: Pharmacy (Medication reconciliation completed by Regional Facilities ManagerNikki) Medications reviewed in ED?: No Medication History completed: Yes Patient Interview: Completed Secondary Source(s): Pharmacy records (From [facility]) and Insurance records [facility] Statement: As the person ultimately responsible for medication therapy, providers are able to order a medication from an existing home medication list in [facility] via the "Reconcile Routine" prior to Confirmation of that medication by security support analyst. Such practice is discouraged except when the physician, in their clinical judgment, deems that a medical need exists for a medication without regard to previous use.
[2025-06-18] MEDS ORDERED: SODIUM CHLORIDE FLUSH 0.9% 10 ML SYRINGE IVP PRN (16:25)
[2025-06-18] MEDS: SODIUM CHLORIDE FLUSH 0.9% 10 ML SYRINGE IVP SCH (17:32)
[2025-06-18 19:08] LABS: HCT - HEMATOCRIT 35.0 % (37.0-47.0); HGB - HEMOGLOBIN 9.8 g/dL (12.0-16.0); MEAN PLATELET VOLUME 10.9 fL (7.9-10.8); PLT - PLATELET COUNT 196 10^3/uL (130-450); RED CELL DISTRIBUTION WIDTH 18.6 % (12.0-15.0)
[2025-06-18 19:26] LABS: BASOPHILS # (MANUAL) 0.0 10^3/uL (0-0.1)
[2025-06-18 19:31] LABS: BAND NEUTROPHILS % (MANUAL) 2 %; EOSINOPHILS # (MANUAL) 1.1 10^3/uL (0-0.7); LYMPHOCYTES % (MANUAL) 12 %; METAMYELOCYTES % (MANUAL) 4 %; MONOCYTES # (MANUAL) 0.4 10^3/uL (0.0-1.0); MYELOCYTES % (MANUAL) 5 %; NEUTROPHILS # (MANUAL) 24.8 10^3/uL (1.5-6.6)
[2025-06-18 19:32] LABS: ABNORMAL LYMPHS % (MANUAL) 3 %; LYMPHOCYTES # (MANUAL) 5.4 10^3/uL (1.5-3.5); NUCLEATED RBC (MANUAL) 18 %; PLATELET ESTIMATE, MANUAL NORMAL (130-450,000) (NORMAL); PLATELET MORPHOLOGY NORMAL APPEARANCE (NORMAL); WBC MORPHOLOGY (MULTIPLE) 1+ TOXIC GRANULATION (NORMAL)
[2025-06-18 19:34] LABS: BLAST CELLS % (MANUAL) 3 %
[2025-06-19 05:47] LABS: ALT ALANINE AMINOTRANSFERASE 21.0 IU/L (10-60); AST ASPARTATE AMINOTRANSFERASE 55.0 IU/L (10-42); BUN - BLOOD UREA NITROGEN 21.0 mg/dL (6-20); CARBON DIOXIDE - CO2 27.0 mmol/L (21-32); CREATININE 1.1 mg/dL (0.6-1.3); GFR - MDRD 47.0 (>89)
[2025-06-19] MEDS: PANTOPRAZOLE 40 MG TABLET PO SCH (06:27)
[2025-06-19] MEDS ORDERED: TEMAZEPAM 15 MG CAPSULE PO PRN (06:47)
[2025-06-19] MEDS ORDERED: BUPIVACAINE 0.25% PF 30 ML VIAL ONE (07:10)
[2025-06-19 07:14] LABS: HCT - HEMATOCRIT 32.7 % (37.0-47.0); HGB - HEMOGLOBIN 9.4 g/dL (12.0-16.0); MEAN PLATELET VOLUME 11.7 fL (7.9-10.8); PLT - PLATELET COUNT 166 10^3/uL (130-450); RED CELL DISTRIBUTION WIDTH 18.9 % (12.0-15.0)
[2025-06-19 07:26] LABS: PLATELET ESTIMATE, MANUAL NORMAL (130-450,000) (NORMAL)
[2025-06-19 07:27] LABS: ABNORMAL LYMPHS % (MANUAL) 0 %; BASOPHILS # (MANUAL) 0.0 10^3/uL (0-0.1); EOSINOPHILS # (MANUAL) 0.0 10^3/uL (0-0.7); MONOCYTES # (MANUAL) 0.0 10^3/uL (0.0-1.0)
[2025-06-19 07:44] LABS: BAND NEUTROPHILS % (MANUAL) 4 %; LYMPHOCYTES # (MANUAL) 4.0 10^3/uL (1.5-3.5); LYMPHOCYTES % (MANUAL) 8 %; METAMYELOCYTES % (MANUAL) 7 %; MYELOCYTES % (MANUAL) 5 %; NEUTROPHILS # (MANUAL) 23.8 10^3/uL (1.5-6.6); REACTIVE LYMPHS % (MANUAL) 4 %
[2025-06-19 07:49] LABS: BLAST CELLS % (MANUAL) 4 %; NUCLEATED RBC (MANUAL) 14 %
[2025-06-19 07:50] LABS: RBC MORPHOLOGY (MULTIPLE) 4+ ANISOCYTOSIS (NORMAL)
--- NOTE | 2025-06-19 08:13 | ANESTHESIA PROCEDURE NOTE ---
Pre-Anesthesia VS, & Labs Diagnosis Surgical Diagnosis:: MDS Procedure Procedure: port placement Vitals Vital Signs: Temp Pulse Resp BP Pulse Ox O2 Flow Rate 36.6 C 70 18 128/74 96 2 06/19/25 05:00 06/19/25 05:00 06/19/25 05:00 06/19/25 05:00 06/19/25 05:00 06/19/25 00:47 NPO NPO: >8 hours Is Patient ?: No Lab Results Current Lab Results: Laboratory Tests 06/19/25 05:17: WBC 33.1 H, RBC 3.73 L, Hgb 9.4 L, Hct 32.7 L, MCV 87.7, MCH 25.2 L, MCHC 28.7 L, RDW 18.9 H, Plt Count 166, MPV 11.7 H, Neut # (Auto) Not Reportable, Lymph # (Auto) Not Reportable, Dewey # (Auto) Not Reportable, Eos # (Auto) Not Reportable, Baso # (Auto) Not Reportable, Absolute Nucleated RBC Not Reportable, Total Counted 100, Band Neuts % (Manual) 4, Reactive Lymphs % (Man) 4, Abnorm Lymph % (Manual) 0, Metamyelocytes % 7 H, Myelocytes % 5 H, Blast Cells % 4 H*, Nucleated RBC % Not Reportable, Neutrophils # (Manual) 23.8 H, L ymphocytes # (Manual) 4.0 H, Monocytes # (Manual) 0.0, Eosinophils # (Manual) 0.0, Basophils # (Manual) 0.0, Nucleated RBCs 14, Differential Comment MANUAL DIFFERENTIAL, Platelet Estimate NORMAL (130-450,000), RBC Morph Micro Appear 4+ ANISOCYTOSIS, Sodium 132 L, Potassium 5.1 H, Chloride 100 L, Carbon Dioxide 27, Anion Gap 5.0 L, BUN 21 H, Creatinine 1.1, Estimated GFR (MDRD) 47 L, Glucose 146 H, Calcium 8.5, Total Bilirubin 1.6 H, AST 55 H, ALT 21, Alkaline Phosphatase 121, Total Protein 5.9 L, Albumin 3.4, Globulin 2.5, Albumin/Globulin Ratio 1.4 06/18/25 18:54: RBC Morph Micro Appear 1+ TEARDROP CELLS 06/18/25 18:54: RBC Morph Micro Appear 1+ STOMATOCYTES 06/18/25 18:54: RBC Morph Micro Appear 1+ SCHISTOCYTES 06/18/25 18:54: RBC Morph Micro Appear 1+ POLYCHROMASIA 06/18/25 18:54: RBC Morph Micro Appear 2+ HYPOCHROMASIA 06/18/25 18:54: WBC 36.0 H*, RBC 3.98 L, Hgb 9.8 L, Hct 35.0 L, MCV 87.9, MCH 24.6 L, MCHC 28.0 L, RDW 18.6 H, Plt Count 196, MPV 10.9 H, Neut # (Auto) Not Reportable, Lymph # (Auto) Not Reportable, Dewey # (Auto) Not Reportable, Eos # (Auto) Not Reportable, Baso # (Auto) Not Reportable, Absolute Nucleated RBC Not Reportable, Total Counted 100, Band Neuts % (Manual) 2, Abnorm Lymph % (Manual) 3, Metamyelocytes % 4 H, Myelocytes % 5 H, Blast Cells % 3 H*, Nucleated RBC % Not Reportable, Neutrophils # (Manual) 24.8 H, Lymphocytes # (Manual) 5.4 H, Monocytes # (Manual) 0.4, Eosinophils # (Manual) 1.1 H, Basophils # (Manual) 0.0, Nucleated RBCs 18, Differential Comment MANUAL DIFFERENTIAL, WBC Morphology 1+ TOXIC GRANULATION, Platelet Estimate NORMAL (130-450,000), Platelet Morphology NORMAL APPEARANCE, RBC Morph Micro Appear 3+ ANISOCYTOSIS 06/18/25 05:17: RBC Morph Micro Appear 2+ HYPOCHROMASIA, Sodium 133 L, Potassium 4.4, Chloride 103, Carbon Dioxide 25, Anion Gap 5.0 L, BUN 20, Creatinine 1.4 H, Estimated GFR (MDRD) 36 L, Glucose 111 H, Calcium 8.3 L 06/18/25 05:17: RBC Morph Micro Appear 1+ BASO STIPPLING 06/18/25 05:17: RBC Morph Micro Appear 3+ POLYCHROMASIA 06/18/25 05:17: WBC 29.9 H, RBC 2.86 L, Hgb 6.9 L*, Hct 25.8 L, MCV 90.2, MCH 24.1 L, MCHC 26.7 L, RDW 18.6 H, Plt Count 160, MPV 11.7 H, Neut # (Auto) Not Reportable, Lymph # (Auto) Not Reportable, Dewey # (Auto) Not Reportable, Eos # (Auto) Not Reportable, Baso # (Auto) Not Reportable, Absolute Nucleated RBC Not Reportable, Total Counted 100, Band Neuts % (Manual) 5, Abnorm Lymph % (Manual) 0, Metamyelocytes % 2 H, Myelocytes % 3 H, Promyelocytes % 1 H, Blast Cells % 6 H*, Nucleated RBC % Not Reportable, Neutrophils # (Manual) 20.9 H, Lymphocytes # (Manual) 1.8, Monocytes # (Manual) 2.4 H, Eosinophils # (Manual) 0.9 H, B asophils # (Manual) 0.3 H, Nucleated RBCs 16, Differential Comment MANUAL DIFFERENTIAL, Platelet Estimate NORMAL (130-450,000), Platelet Morphology NORMAL SHAW, RBC Morph Micro Appear 4+ ANISOCYTOSIS 06/17/25 17:53: Blood Type O POSITIVE, Antibody Screen NEGATIVE, Crossmatch IS Only See Detail 06/17/25 17:26: RBC Morph Micro Appear 1+ SCHISTOCYTES, Sodium 131 L, Potassium 4.8 H, Chloride 101, Carbon Dioxide 24, Anion Gap 6.0, BUN 16, Creatinine 1.3, E stimated GFR (MDRD) 39 L, Glucose 129 H, Calcium 8.7, Magnesium 2.0, Total Bilirubin 1.8 H, AST 71 H, ALT 23, Alkaline Phosphatase 121, B-Natriuretic Peptide 864 H, Total Protein 6.2 L, Albumin 3.6, Globulin 2.6, Albumin/Globulin Ratio 1.4, Lipase 20 06/17/25 17:26: RBC Morph Micro Appear 2+ OVALOCYTES 06/17/25 17:26: RBC Morph Micro Appear 1+ TEARDROP CELLS 06/17/25 17:26: RBC Morph Micro Appear 1+ POLYCHROMASIA 06/17/25 17:26: RBC Morph Micro Appear 1+ STOMATOCYTES 06/17/25 17:26: RBC Morph Micro Appear 2+ HYPOCHROMASIA 06/17/25 17:26: WBC 37.6 H*, RBC 2.73 L, Hgb 6.5 L*, Hct 24.9 L, MCV 91.2, MCH 23.8 L, MCHC 26.1 L, RDW 18.9 H, Plt Count 214, MPV 10.5, Neut # (Auto) Not Reportable, Lymph # (Auto) Not Reportable, Dewey # (Auto) Not Reportable, Eos # (Auto) Not Reportable, Baso # (Auto) Not Reportable, Absolute Nucleated RBC Not Reportable, Total Counted 100, Band Neuts % (Manual) 11 H, Abnorm Lymph % (Manual) 0, Metamyelocytes % 3 H, Myelocytes % 6 H, Promyelocytes % 2 H, Blast Cells % 4 H*, Nucleated RBC % Not Reportable, Neutrophils # (Manual) 24.1 H, L ymphocytes # (Manual) 6.8 H, Monocytes # (Manual) 0.8, Eosinophils # (Manual) 0.4, Basophils # (Manual) 0.0, Nucleated RBCs 24, Differential Comment MANUAL DIFFERENTIAL, Platelet Estimate NORMAL (130-450,000), RBC Morph Micro Appear 3+ ANISOCYTOSIS 06/19/25 05:17 06/19/25 05:17 Meds/Allgy Home Medications Ambulatory Orders Medication Instructions Recorded Confirmed atorvastatin 40 mg tablet (Lipitor) 80 mg PO HS 06/18/25 Held on 06/18/25. Instructions: Per Provider amlodipine 5 mg tablet 5 mg PO DAILY 01/14/2406/18 Held on 05/21/25. Instructions: Resume on 05/28/25. Hold until follow up PCP. Blood pressure normal to low while here. ondansetron 4 mg disintegrating 4 mg translingual Q12H PRN Nausea 01/14/24 06/18/25 tablet / Vomiting multivitamin with folic acid 400 1 tab PO DAILYWM 12/2506/18/25 mcg tablet (Thera) metoprolol succinate 25 mg 12.5 mg PO DAILY 03/18/25 1 08/18/24 tablet,extended release 24 hr diphenoxylate-atropine 2.5 1 - 2 tab PO Q6H PRN diarrh ea 03/19/25 06/18/25 mg-0.025 mg tablet apixaban 5 mg tablet (Eliquis) 5 mg PO BID 05/11/25 Held on 05/21/25. Instructions: Resume on 05/28/25. Hold likely indefinitely. cholecalciferol (vitamin D3) 25 2,000 unit PO DAILY 06/18/25 mcg (1,000 unit) capsule (Vitamin D3) ferrous sulfate 325 mg (65 mg 325 mg PO DAILY 06/14/25 06/18/25 iron) tablet (Feosol) lidocaine 5 % topical patch 1 patch topical DAILY PRN pain 06/14/25 06/18/25 oxycodone-acetaminophen 10 mg-325 1 tab PO Q6HR PRN pa in 06/14/25 06/18/25 mg tablet pantoprazole 40 mg tablet,delayed 40 mg PO DAILY 06/1406/18/25 release temazepam 22.5 mg capsule 22.5 mg PO HS 06/14/2506/18 calcitonin (salmon) 200 1 spray intranasal (ALT) AUGUSTUS LY 06/17/25 unit/actuation nasal spray #3.7 mL dexamethasone 2 mg tablet 2 mg PO DAILY #5 tabs oxycodone 5 mg tablet 5 mg PO TID PRN pain #20 tab s 06/17/25 duloxetine 60 mg capsule,delayed 60 mg PO DAILY 06/18/25 release (Cymbalta) furosemide 20 mg tablet (Lasix) 20 mg PO BID 06/18/25 06/18/25 gabapentin 400 mg capsule 400 mg PO BID 06/18/2506/18 hydrocodone 10 mg-acetaminophen 2 tab PO Q6H PRN pain 06/18/25 06/18/25 325 mg tablet ipratropium bromide 42 mcg (0.06 2 spray intranasal TI D allergy 06/18/25 06/18/25 %) nasal spray symptoms morphine 30 mg tablet,extended 30 mg PO DAILY 06/18/25 06/18/25 release sucralfate 1 gram tablet 1 g PO QACHS 06/18/25 trazodone 100 mg tablet 200 mg PO HS 06/18/25 Allergies Allergies Allergy/AdvReac Type Severity Reaction Status Date / Time clopidogrel bisulfate * Allergy Severe Rash Verified 06/17/25 17:38 (From Plavix) erythromycin base Allergy Mild Rash Verified 06/17/25 17:38 (Erythromycin Base) Penicillins Allergy Mild Rash Verified 06/17/25 17:38 spironolactone Allergy Mild Rash Verified 06/17/25 17:38 diazepam (From Valium) AdvReac Mild Anxiety Verified 06/17/25 17:38 PFS Active Problems All Active Problems (Updated 06/18/25 @ 16:00 by Marcelo Broussard) Myelodysplastic disease (Acute) Anemia, chronic disease (Chronic) Compression fracture of L2 lumbar vertebra (Acute) Upper respiratory infection, viral (Acute) Acute bronchitis due to Rhinovirus (Acute) Hypoxia (Acute) Congestive heart failure (Acute) Compression fracture of lumbar vertebra (Acute) Acute lumbar back pain (Acute) Acute dyspnea (Acute) Poor intravenous access (Acute) Encounter for antineoplastic chemotherapy (Acute) Gastric ulcer (Acute) Myelodysplastic syndrome with excess blasts-1 (Acute) Anemia (Chronic) Rectal bleeding (Acute) Healthcare maintenance (Acute) Hepatosplenomegaly (Acute) Chronic pain (Acute) Complicated UTI (urinary tract infection) (Acute) Anemia (Acute) Pneumonia (Acute) Hematoma (Acute) Cellulitis of hand (Acute) Chronic sinusitis (Acute) Cat scratch of hand (Acute) Medical History Medical History (Updated 06/18/25 @ 16:00 by Marcelo Broussard) Leukocytosis Implantable loop recorder present GI bleed Nausea vomiting and diarrhea Food poisoning Bronchitis, asthmatic Accidental fall Fracture of greater tuberosity of humerus Vomiting Hot flashes Anemia Generalized weakness Near syncope Dyspnea Urinary tract infection Dehydration Open wound of abdomen ISTAP type 1 skin tear of right forearm Open wound of right wrist Left leg cellulitis Shortness of breath Dizziness Gastrointestinal hemorrhage Anemia due to acute blood loss Venous stasis ulcer of left lower leg with edema of left lower leg Atrial fibrillation Non-pressure chronic ulcer of skin of other sites with fat layer exposed Esophageal varices determined by endoscopy Hyperlipidemia HTN (hypertension) ETOH abuse Hx of cholecystitis GI bleed due to NSAIDs Surgical History Surgical History History of vertebroplasty (~1979) T-[address] Leahy History of tonsillectomy and adenoidectomy History of bilateral cataract extraction History of appendectomy Family History Family History Sister Breast cancer Father CVA (cerebral vascular accident) Dementia Mother ALS (amyotrophic lateral sclerosis) Son Diabetes Social History Social History (Updated 06/14/25 @ 11:48 by Tabby Yoo RN) Smoking Status: Former smoker If you are a former smoker, when did you quit? (Date/Year): 07/26/2008 Number of Years Smoked: 65 How many cigarettes a day do you smoke? (20 cigarettes=1 Pk): 1 Second hand tobacco smoke exposure: No Do you dip or chew tobacco?: No Do you vape?: No Patient requests smoking cessation consult: No Initiate information on smoking cessation: No Living arrangement: At home (family in area ) Living Condition: Alone Level: Assisted Home Mobility Equipment: Walker Do you feel safe in your home environment?: No History of physical, verbal, emotional, or financial abuse?: No ETOH Use: None Frequency: Occasional Substance Use: denies use POLST Patient has POLST: No POLST CPR Status: Attempt Resuscitation (CPR) (Pt verbally endorses DNR, but does not have a POLST on file yet. ) Level of Medical Intervention: Full Treatment Exam Exam Vital Signs: Vital Signs x48h Temp Pulse Resp BP Pulse Ox O2 Flow Rate 06/19/25 05:00 36.6 C 70 18 128/74 96 06/19/25 00:47 36.5 C 61 14 129/68 99 2 Plan Problem List (1) Anemia, chronic disease: Plan: Condition: Pt presents with acute anemia, presumed to be of chronic disease origin. Pt clinical presentation good despite degree of anemia, with good mentation, normovolemia, and no pallor noted nor fatigue endorsed. Assistance: Blood products transfusion and CBC/CMP monitoring. Risk: Risk of transfusion-related sequelae, exacerbation of current condition, DVT. Expected LOS: ~2-3 midnights Monitor: CBC w/ diff continual monitoring, with labs Qday. At lowest value, Hgb was 6.5, continues to remain under 7. Evaluate: Pt BP and clinical presentation actually quite good given degree of anemia, but will continue to monitor course closely as blood products are administered, as well as for transfusion reactions. Assess/add: Microcytic and hypochromic anemia, presumed chronic disease source. Will continue to trend CBC and CMP to monitor for infusion efficacy and any organ function or electrolytic derangements. Treat: Pt received 2 units of leukoreduced pRBCs so far, further transfusion orders cancelled pending f/u labs. (2) Upper respiratory infection, viral: Plan: Monitor: Pt continues to sat well on RA to high 90's. Supportive care for viral PNA, no indication for antiviral therapy at this time. Evaluate: Dyspnea largely resolved at this time. Pt was given x1 albuterol tx with resolution of symptoms the night prior, and has denied any acute SOB latent at time of inpatient exam. Pt had been on 3LPM via NC, but related she didn't feel the need for it anymore and was discontinued.Continue to assess respiratory function and effort, including reinitiation of oxygen therapy if needed. Assess/add: No indication at this time to add any respiratory specific testing to current management. Treat: No current indications for medication therapy, will consider duoneb, steroidal, or oxygen therapy if condition deteriorates. Condition: Currently improved, no respiratory distress or increased WOB endorsed or noted during pt encounter. Assistance: Monitoring and medication intervention as needed. Expected LOS: Dependent on time to PICC placement; prospectively ~2/3 midnights. (3) Compression fracture of L2 lumbar vertebra: Plan: Monitor: Pt has a nondisplaced L2 compression fracture with less than 5% height loss and no retropulsion into the spinal canal. Evaluate: Monitor for pain mgmt PRN, pt denies any significant losss of mobility secondary to this complaint. Discharge instructions will include activity modification to reduce chances of nonunion or continued compression. Assess/add: Pt pn currently well controlled on low dose Oxycodone, will modify/DC/change medication PRN. Treat: Oxycodone 5mg PRN, modify to acetaminophen/ibuprofen if indicated. Plan Monitor condition as supportive care progresses for viral PNA, transfusions to correct anemia are administered, and as PICC line placement procedure is performed. Plan Anesthesia Type: MAC and Total IV Consent for Procedure(s) Verified and Reviewed: Yes Code Status: Attempt Resuscitation ASA Classification ASA classification: 4-Incapacitating disease Is this case an emergency?: No
[2025-06-19] MEDS: FERROUS SULFATE 325 MG TABLET PO SCH (08:14)
[2025-06-19] MEDS: CHOLECALCIFEROL 25 MCG TABLET PO SCH (08:14)
--- NOTE | 2025-06-19 08:18 | CONSULTATION NOTE ---
Chief Complaint Chief Complaint Chief Complaint: Port placement today History of Present Illness History Obtained From History obtained from: Patient History of Present Illness HPI Comment/Other: 84 yo F who was admitted with URI, lumbar fx and anemia on 06/18 to the medicine service. She has been recovering and feeling well overall but on my discussion with her this morning she states that she does not want to go her outpatient port placement as previously scheduled for today. She feels that she is too weak right now as she recovers from her respiratory illness and does not want to make things worse by undergoing a procedure. She would rather delay the procedure and continue to recover and plan for port placement in the next 1-2 weeks. REPLACED BY [facility] Active Problems All Active Problems (Updated 06/18/25 @ 16:00 by Mareclo Broussard) Myelodysplastic disease (Acute) Anemia, chronic disease (Chronic) Compression fracture of L2 lumbar vertebra (Acute) Upper respiratory infection, viral (Acute) Acute bronchitis due to Rhinovirus (Acute) Hypoxia (Acute) Congestive heart failure (Acute) Compression fracture of lumbar vertebra (Acute) Acute lumbar back pain (Acute) Acute dyspnea (Acute) Poor intravenous access (Acute) Encounter for antineoplastic chemotherapy (Acute) Gastric ulcer (Acute) Myelodysplastic syndrome with excess blasts-1 (Acute) Anemia (Chronic) Rectal bleeding (Acute) Healthcare maintenance (Acute) Hepatosplenomegaly (Acute) Chronic pain (Acute) Complicated UTI (urinary tract infection) (Acute) Anemia (Acute) Pneumonia (Acute) Hematoma (Acute) Cellulitis of hand (Acute) Chronic sinusitis (Acute) Cat scratch of hand (Acute) Medical History Medical History (Updated 06/18/25 @ 16:00 by Marcelo Broussard) Leukocytosis Implantable loop recorder present GI bleed Nausea vomiting and diarrhea Food poisoning Bronchitis, asthmatic Accidental fall Fracture of greater tuberosity of humerus Vomiting Hot flashes Anemia Generalized weakness Near syncope Dyspnea Urinary tract infection Dehydration Open wound of abdomen ISTAP type 1 skin tear of right forearm Open wound of right wrist Left leg cellulitis Shortness of breath Dizziness Gastrointestinal hemorrhage Anemia due to acute blood loss Venous stasis ulcer of left lower leg with edema of left lower leg Atrial fibrillation Non-pressure chronic ulcer of skin of other sites with fat layer exposed Esophageal varices determined by endoscopy Hyperlipidemia HTN (hypertension) ETOH abuse Hx of cholecystitis GI bleed due to NSAIDs Surgical History Surgical History History of vertebroplasty (~1979) T-[address] Leahy History of tonsillectomy and adenoidectomy History of bilateral cataract extraction History of appendectomy Family History Family History Sister Breast cancer Father CVA (cerebral vascular accident) Dementia Mother ALS (amyotrophic lateral sclerosis) Son Diabetes Social History Social History (Updated 06/14/25 @ 11:48 by Tabby Yoo RN) Smoking Status: Former smoker If you are a former smoker, when did you quit? (Date/Year): 07/26/2008 Number of Years Smoked: 65 How many cigarettes a day do you smoke? (20 cigarettes=1 Pk): 1 Second hand tobacco smoke exposure: No Do you dip or chew tobacco?: No Do you vape?: No Patient requests smoking cessation consult: No Initiate information on smoking cessation: No Living arrangement: At home (family in area ) Living Condition: Alone Level: Assisted Home Mobility Equipment: Walker Do you feel safe in your home environment?: No History of physical, verbal, emotional, or financial abuse?: No ETOH Use: None Frequency: Occasional Substance Use: denies use POLST Patient has POLST: No POLST CPR Status: Attempt Resuscitation (CPR) (Pt verbally endorses DNR, but does not have a POLST on file yet. ) Level of Medical Intervention: Full Treatment Meds/Allgy Home Medications Ambulatory Orders Medication Instructions Recorded Confirmed atorvastatin 40 mg tablet (Lipitor) 80 mg PO HS 06/18/25 Held on 06/18/25. Instructions: Per Provider amlodipine 5 mg tablet 5 mg PO DAILY 01/14/2406/18 Held on 05/21/25. Instructions: Resume on 05/28/25. Hold until follow up PCP. Blood pressure normal to low while here. ondansetron 4 mg disintegrating 4 mg translingual Q12H PRN Nausea 01/14/24 06/18/25 tablet / Vomiting multivitamin with folic acid 400 1 tab PO DAILYWM 12/2506/18/25 mcg tablet (Thera) metoprolol succinate 25 mg 12.5 mg PO DAILY 03/18/25 1 08/18/24 tablet,extended release 24 hr diphenoxylate-atropine 2.5 1 - 2 tab PO Q6H PRN diarrh ea 03/19/25 06/18/25 mg-0.025 mg tablet apixaban 5 mg tablet (Eliquis) 5 mg PO BID 05/11/25 Held on 05/21/25. Instructions: Resume on 05/28/25. Hold likely indefinitely. cholecalciferol (vitamin D3) 25 2,000 unit PO DAILY 06/18/25 mcg (1,000 unit) capsule (Vitamin D3) ferrous sulfate 325 mg (65 mg 325 mg PO DAILY 06/14/25 06/18/25 iron) tablet (Feosol) lidocaine 5 % topical patch 1 patch topical DAILY PRN pain 06/14/25 06/18/25 oxycodone-acetaminophen 10 mg-325 1 tab PO Q6HR PRN pa in 06/14/25 06/18/25 mg tablet pantoprazole 40 mg tablet,delayed 40 mg PO DAILY 06/1406/18/25 release temazepam 22.5 mg capsule 22.5 mg PO HS 06/14/2506/18 calcitonin (salmon) 200 1 spray intranasal (ALT) AUGUSTUS LY 06/17/25 unit/actuation nasal spray #3.7 mL dexamethasone 2 mg tablet 2 mg PO DAILY #5 tabs oxycodone 5 mg tablet 5 mg PO TID PRN pain #20 tab s 06/17/25 duloxetine 60 mg capsule,delayed 60 mg PO DAILY 06/18/25 release (Cymbalta) furosemide 20 mg tablet (Lasix) 20 mg PO BID 06/18/25 06/18/25 gabapentin 400 mg capsule 400 mg PO BID 06/18/2506/18 hydrocodone 10 mg-acetaminophen 2 tab PO Q6H PRN pain 06/18/25 06/18/25 325 mg tablet ipratropium bromide 42 mcg (0.06 2 spray intranasal TI D allergy 06/18/25 06/18/25 %) nasal spray symptoms morphine 30 mg tablet,extended 30 mg PO DAILY 06/18/25 06/18/25 release sucralfate 1 gram tablet 1 g PO QACHS 06/18/25 trazodone 100 mg tablet 200 mg PO HS 06/18/25 Allergies Allergies Allergy/AdvReac Type Severity Reaction Status Date / Time clopidogrel bisulfate * Allergy Severe Rash Verified 06/17/25 17:38 (From Plavix) erythromycin base Allergy Mild Rash Verified 06/17/25 17:38 (Erythromycin Base) Penicillins Allergy Mild Rash Verified 06/17/25 17:38 spironolactone Allergy Mild Rash Verified 06/17/25 17:38 diazepam (From Valium) AdvReac Mild Anxiety Verified 06/17/25 17:38 Results Lab Results Lab results reviewed: Yes 06/19/25 05:17 06/19/25 05:17 Other Lab Results: Lab Results x24hrs 06/19/25 06/18/25 06/18/25 Range/Units 05:17 18:54 18:54 WBC 33.1 H (4.8-10.8) x10^3/uL RBC 3.73 L (4.20-5.40) 10^6/uL Hgb 9.4 L (12.0-16.0) g/dL Hct 32.7 L (37.0-47.0) % MCV 87.7 (81.0-99.0) fL MCH 25.2 L (27.0-31.0) pg MCHC 28.7 L (32.0-36.0) g/dL RDW 18.9 H (12.0-15.0) % Plt Count 166 (130-450) 10^3/uL MPV 11.7 H (7.9-10.8) fL Neut # (Auto) Not Reportable Lymph # (Auto) Not Reportable [place] # (Auto) Not Reportable Eos # (Auto) Not Reportable Baso # (Auto) Not Reportable Absolute Nucleated RBC Not Reportable Total Counted 100 Band Neuts % (Manual) 4 (0 - 10) % Reactive Lymphs % (Man) 4 % Abnorm Lymph % (Manual) 0 % Metamyelocytes % 7 H ( - 0) % Myelocytes % 5 H ( - 0) % Blast Cells % 4 H* % Nucleated RBC % Not Reportable Neutrophils # (Manual) 23.8 H (1.5-6.6) 10^3/uL Lymphocytes # (Manual) 4.0 H (1.5-3.5) 10^3/uL Monocytes # (Manual) 0.0 (0.0-1.0) 10^3/uL Eosinophils # (Manual) 0.0 (0-0.7) 10^3/uL Basophils # (Manual) 0.0 (0-0.1) 10^3/uL Nucleated RBCs 14 % Differential Comment MANUAL DIFFERENTIAL WBC Morphology (NORMAL) Platelet Estimate NORMAL (130-450,000) (NORMAL) Platelet Morphology (NORMAL) RBC Morph Micro Appear 4+ ANISOCYTOSIS 1+ TEARDROP CELLS 1+ STOMATOCYTES (NORMAL) Sodium 132 L (135-145) mmol/L Potassium 5.1 H (3.5-4.5) mmol/L Chloride 100 L (101-111) mmol/L Carbon Dioxide 27 (21-32) mmol/L Anion Gap 5.0 L (6-13) BUN 21 H (6-20) mg/dL Creatinine 1.1 (0.6-1.3) mg/dL Estimated GFR (MDRD) 47 L (>89) Glucose 146 H (74-104) mg/dL Calcium 8.5 (8.5-10.3) mg/dL Total Bilirubin 1.6 H (0.2-1.0) mg/dL AST 55 H (10-42) IU/L ALT 21 (10-60) IU/L Alkaline Phosphatase 121 (42-121) IU/L Total Protein 5.9 L (6.4-8.9) g/dL Albumin 3.4 (3.2-5.5) g/dL Globulin 2.5 (2.1-4.2) g/dL Albumin/Globulin Ratio 1.4 (1.0-2.2) Urine Color Urine Clarity (CLEAR) Urine pH (5.0-7.5) PH Ur Specific [place] (1.002-1.030) Urine Protein (NEGATIVE) mg/dL Urine Glucose (UA) (NEGATIVE) mg/dL Urine Ketones (NEGATIVE) mg/dL Urine Occult Blood (NEGATIVE) Urine Nitrite (NEGATIVE) Urine Bilirubin (NEGATIVE) Urine Urobilinogen (NORMAL) E.U./dL Ur Leukocyte Esterase (NEGATIVE) Urine RBC (0-5) /HPF Urine WBC (0-5) /HPF Ur Squamous Epith Cells (<= Few) Urine Bacteria (None Seen) /HPF Urine Casts /LPF Urine Culture Comments Blood Type Antibody Screen Crossmatch IS Only 06/18/25 06/18/25 06/18/25 Range/Units 18:54 18:54 18:54 WBC (4.8-10.8) x10^3/uL RBC (4.20-5.40) 10^6/uL Hgb (12.0-16.0) g/dL Hct (37.0-47.0) % MCV (81.0-99.0) fL MCH (27.0-31.0) pg MCHC (32.0-36.0) g/dL RDW (12.0-15.0) % Plt Count (130-450) 10^3/uL MPV (7.9-10.8) fL Neut # (Auto) Lymph # (Auto) [place] # (Auto) Eos # (Auto) Baso # (Auto) Absolute Nucleated RBC Total Counted Band Neuts % (Manual) (0 - 10) % Reactive Lymphs % (Man) % Abnorm Lymph % (Manual) % Metamyelocytes % ( - 0) % Myelocytes % ( - 0) % Blast Cells % % Nucleated RBC % Neutrophils # (Manual) (1.5-6.6) 10^3/uL Lymphocytes # (Manual) (1.5-3.5) 10^3/uL Monocytes # (Manual) (0.0-1.0) 10^3/uL Eosinophils # (Manual) (0-0.7) 10^3/uL Basophils # (Manual) (0-0.1) 10^3/uL Nucleated RBCs % Differential Comment WBC Morphology (NORMAL) Platelet Estimate (NORMAL) Platelet Morphology (NORMAL) RBC Morph Micro Appear 1+ SCHISTOCYTES 1+ POLYCHROMASIA 2+ HYPOCHROMASIA (NORMAL) Sodium (135-145) mmol/L Potassium (3.5-4.5) mmol/L Chloride (101-111) mmol/L Carbon Dioxide (21-32) mmol/L Anion Gap (6-13) BUN (6-20) mg/dL Creatinine (0.6-1.3) mg/dL Estimated GFR (MDRD) (>89) Glucose (74-104) mg/dL Calcium (8.5-10.3) mg/dL Total Bilirubin (0.2-1.0) mg/dL AST (10-42) IU/L ALT (10-60) IU/L Alkaline Phosphatase (42-121) IU/L Total Protein (6.4-8.9) g/dL Albumin (3.2-5.5) g/dL Globulin (2.1-4.2) g/dL Albumin/Globulin Ratio (1.0-2.2) Urine Color Urine Clarity (CLEAR) Urine pH (5.0-7.5) PH Ur Specific [place] (1.002-1.030) Urine Protein (NEGATIVE) mg/dL Urine Glucose (UA) (NEGATIVE) mg/dL Urine Ketones (NEGATIVE) mg/dL Urine Occult Blood (NEGATIVE) Urine Nitrite (NEGATIVE) Urine Bilirubin (NEGATIVE) Urine Urobilinogen (NORMAL) E.U./dL Ur Leukocyte Esterase (NEGATIVE) Urine RBC (0-5) /HPF Urine WBC (0-5) /HPF Ur Squamous Epith Cells (<= Few) Urine Bacteria (None Seen) /HPF Urine Casts /LPF Urine Culture Comments Blood Type Antibody Screen Crossmatch IS Only 06/18/25 06/17/25 06/17/25 Range/Units 18:54 17:53 09:40 WBC 36.0 H* (4.8-10.8) x10^3/uL RBC 3.98 L (4.20-5.40) 10^6/uL Hgb 9.8 L (12.0-16.0) g/dL Hct 35.0 L (37.0-47.0) % MCV 87.9 (81.0-99.0) fL MCH 24.6 L (27.0-31.0) pg MCHC 28.0 L (32.0-36.0) g/dL RDW 18.6 H (12.0-15.0) % Plt Count 196 (130-450) 10^3/uL MPV 10.9 H (7.9-10.8) fL Neut # (Auto) Not Reportable Lymph # (Auto) Not Reportable [place] # (Auto) Not Reportable Eos # (Auto) Not Reportable Baso # (Auto) Not Reportable Absolute Nucleated RBC Not Reportable Total Counted 100 Band Neuts % (Manual) 2 (0 - 10) % Reactive Lymphs % (Man) % Abnorm Lymph % (Manual) 3 % Metamyelocytes % 4 H ( - 0) % Myelocytes % 5 H ( - 0) % Blast Cells % 3 H* % Nucleated RBC % Not Reportable Neutrophils # (Manual) 24.8 H (1.5-6.6) 10^3/uL Lymphocytes # (Manual) 5.4 H (1.5-3.5) 10^3/uL Monocytes # (Manual) 0.4 (0.0-1.0) 10^3/uL Eosinophils # (Manual) 1.1 H (0-0.7) 10^3/uL Basophils # (Manual) 0.0 (0-0.1) 10^3/uL Nucleated RBCs 18 % Differential Comment MANUAL DIFFERENTIAL WBC Morphology 1+ TOXIC GRANULATION (NORMAL) Platelet Estimate NORMAL (130-450,000) (NORMAL) Platelet Morphology NORMAL APPEARANCE (NORMAL) RBC Morph Micro Appear 3+ ANISOCYTOSIS (NORMAL) Sodium (135-145) mmol/L Potassium (3.5-4.5) mmol/L Chloride (101-111) mmol/L Carbon Dioxide (21-32) mmol/L Anion Gap (6-13) BUN (6-20) mg/dL Creatinine (0.6-1.3) mg/dL Estimated GFR (MDRD) (>89) Glucose (74-104) mg/dL Calcium (8.5-10.3) mg/dL Total Bilirubin (0.2-1.0) mg/dL AST (10-42) IU/L ALT (10-60) IU/L Alkaline Phosphatase (42-121) IU/L Total Protein (6.4-8.9) g/dL Albumin (3.2-5.5) g/dL Globulin (2.1-4.2) g/dL Albumin/Globulin Ratio (1.0-2.2) Urine Color DARK YELLOW Urine Clarity CLEAR (CLEAR) Urine pH 6.0 (5.0-7.5) PH Ur Specific [place] 1.020 (1.002-1.030) Urine Protein TRACE (NEGATIVE) mg/dL Urine Glucose (UA) NEGATIVE (NEGATIVE) mg/dL Urine Ketones NEGATIVE (NEGATIVE) mg/dL Urine Occult Blood NEGATIVE (NEGATIVE) Urine Nitrite NEGATIVE (NEGATIVE) Urine Bilirubin SMALL H (NEGATIVE) Urine Urobilinogen 0.2 (NORMAL) (NORMAL) E.U./dL Ur Leukocyte Esterase TRACE H (NEGATIVE) Urine RBC 0-5 (0-5) /HPF Urine WBC 6-10 H (0-5) /HPF Ur Squamous Epith Cells FEW Squamous (<= Few) Urine Bacteria Few (None Seen) /HPF Urine Casts 3-5 Hyaline Casts /LPF Urine Culture Comments INDICATED Blood Type O POSITIVE Antibody Screen NEGATIVE Crossmatch IS Only See Detail Review of Systems Status of ROS: 10 or more systems reviewed and unremarkable except as noted in history and below Exam Exam Vital Signs: Vital Signs x48h Temp Pulse Resp BP Pulse Ox O2 Flow Rate 06/19/25 05:00 36.6 C 70 18 128/74 96 06/19/25 00:47 36.5 C 61 14 129/68 99 2 Constitutional normal general appearance and no apparent distress HENMT normocephalic and head/scalp atraumatic Eyes conjunctivae normal and no scleral icterus Neck/C-Spine visual inspection normal Respiratory Mildly labored breathing after walking this morning, saturating well on room air. Cardiovascular normal heart rate noted and regular rhythm noted Extremities normal to inspection Neurology GCS 15 Psychiatry cooperative and affect normal Skin skin color abnormal (pale) Conclusion/Plan Problem List (1) Anemia, chronic disease: (2) Upper respiratory infection, viral: (3) Compression fracture of L2 lumbar vertebra: Plan 84 yo F who was admitted with URI, lumbar fx and anemia on 06/18 to the medicine service. She has been recovering and feeling well overall but on my discussion with her this morning she states that she does not want to go her outpatient port placement as previously scheduled for today. She feels that she is too weak right now as she recovers from her respiratory illness and does not want to make things worse by undergoing a procedure. She would rather delay the procedure and continue to recover and plan for port placement in the next 1-2 weeks. - Spoke to the OR to cancel the case - Reached out to the office staff to reschedule her for next 1-2 weeks - Rest of care per primary - Surgery will not continue to follow, please call with questions and/or concerns Lab Results Lab results reviewed: Yes 06/19/25 05:17 06/19/25 05:17
--- NOTE | 2025-06-19 09:07 | Discharge Summary ---
Discharge Summary ALLERGIES Allergies Allergy/AdvReac Type Severity Reaction Status Date / Time clopidogrel bisulfate * Allergy Severe Rash Verified 06/17/25 17:38 (From Plavix) erythromycin base Allergy Mild Rash Verified 06/17/25 17:38 (Erythromycin Base) Penicillins Allergy Mild Rash Verified 06/17/25 17:38 spironolactone Allergy Mild Rash Verified 06/17/25 17:38 diazepam (From Valium) AdvReac Mild Anxiety Verified 06/17/25 17:38 MEDICATIONS Ambulatory Orders Medication Instructions Recorded Confirmed atorvastatin 40 mg tablet (Lipitor) 80 mg PO HS 06/18/25 Held on 06/18/25. Instructions: Per Provider amlodipine 5 mg tablet 5 mg PO DAILY 01/14/2406/18 Held on 05/21/25. Instructions: Resume on 05/28/25. Hold until follow up PCP. Blood pressure normal to low while here. ondansetron 4 mg disintegrating 4 mg translingual Q12H PRN Nausea 01/14/24 06/18/25 tablet / Vomiting multivitamin with folic acid 400 1 tab PO DAILYWM 12/2506/18/25 mcg tablet (Thera) metoprolol succinate 25 mg 12.5 mg PO DAILY 03/18/25 1 08/18/24 tablet,extended release 24 hr diphenoxylate-atropine 2.5 1 - 2 tab PO Q6H PRN diarrh ea 03/19/25 06/18/25 mg-0.025 mg tablet apixaban 5 mg tablet (Eliquis) 5 mg PO BID 05/11/25 Held on 05/21/25. Instructions: Resume on 05/28/25. Hold likely indefinitely. cholecalciferol (vitamin D3) 25 2,000 unit PO DAILY 06/18/25 mcg (1,000 unit) capsule (Vitamin D3) ferrous sulfate 325 mg (65 mg 325 mg PO DAILY 06/14/25 06/18/25 iron) tablet (Feosol) lidocaine 5 % topical patch 1 patch topical DAILY PRN pain 06/14/25 06/18/25 oxycodone-acetaminophen 10 mg-325 1 tab PO Q6HR PRN pa in 06/14/25 06/18/25 mg tablet pantoprazole 40 mg tablet,delayed 40 mg PO DAILY 06/1406/18/25 release temazepam 22.5 mg capsule 22.5 mg PO HS 06/14/2506/18 calcitonin (salmon) 200 1 spray intranasal (ALT) AUGUSTUS LY 06/17/25 unit/actuation nasal spray #3.7 mL dexamethasone 2 mg tablet 2 mg PO DAILY #5 tabs oxycodone 5 mg tablet 5 mg PO TID PRN pain #20 tab s 06/17/25 duloxetine 60 mg capsule,delayed 60 mg PO DAILY 06/18/25 release (Cymbalta) furosemide 20 mg tablet (Lasix) 20 mg PO BID 06/18/25 06/18/25 gabapentin 400 mg capsule 400 mg PO BID 06/18/2506/18 hydrocodone 10 mg-acetaminophen 2 tab PO Q6H PRN pain 06/18/25 06/18/25 325 mg tablet ipratropium bromide 42 mcg (0.06 2 spray intranasal TI D allergy 06/18/25 06/18/25 %) nasal spray symptoms morphine 30 mg tablet,extended 30 mg PO DAILY 06/18/25 06/18/25 release sucralfate 1 gram tablet 1 g PO QACHS 06/18/25 trazodone 100 mg tablet 200 mg PO HS 06/18/25 PHYSICAL EXAM AT DISCHARGE Vital Signs: Vital Signs x48h Temp Pulse Resp BP Pulse Ox 06/19/25 05:00 36.6 C 70 18 128/74 96 LABS 06/19/25 05:17 06/19/25 05:17 Discharge Plan Discharge Condition: Serious Prescriptions: New oxycodone 5 mg tablet 5 mg PO TID PRN (Reason: pain) Qty: 20 0RF calcitonin (salmon) 200 unit/actuation spray,non-aerosol 1 spray intranasal (ALT) DAILY Qty: 3.7 0RF dexamethasone 2 mg tablet 2 mg PO DAILY Qty: 5 0RF No Action atorvastatin [Lipitor] 40 MG tablet 80 mg PO HS amlodipine 5 MG tablet 5 mg PO DAILY ondansetron 4 MG tablet,disintegrating 4 mg translingual Q12H PRN (Reason: Nausea / Vomiting) multivitamin with folic acid [Thera] 1 TAB tablet 1 tab PO DAILYWM 0RF metoprolol succinate 25 mg tablet extended release 24 hr 12.5 mg PO DAILY Patient Comments: TAKE 1/2 TABLET BY MOUTH ONCE DAILY diphenoxylate-atropine 2.5-0.025 mg tablet 1 - 2 tab PO Q6H PRN (Reason: diarrhea) Patient Comments: TAKE 1 TO 2 TABLETS BY MOUTH EVERY SIX HOURS NEEDED, up to 8 tablets daily Eliquis 5 mg tablet 5 mg PO BID pantoprazole 40 mg Tablet,Delayed Release (Dr/Ec) 40 mg PO DAILY ferrous sulfate [Feosol] 325 mg (65 mg iron) tablet 325 mg PO DAILY lidocaine 5 % adhesive patch,medicated 1 patch topical DAILY PRN (Reason: pain) Rx Instructions: leave on most painful area for up to 12 hrs temazepam 22.5 mg capsule 22.5 mg PO HS oxycodone-acetaminophen 10-325 mg tablet 1 tab PO Q6HR PRN (Reason: pain) cholecalciferol (vitamin D3) [Vitamin D3] 25 mcg (1,000 unit) capsule 2,000 unit PO DAILY trazodone 100 mg tablet 200 mg PO HS hydrocodone-acetaminophen 10-325 mg tablet 2 tab PO Q6H PRN (Reason: pain) ipratropium bromide 42 mcg (0.06 %) spray,non-aerosol 2 spray intranasal TID Rx Instructions: administer into each nostril sucralfate 1 gram tablet 1 g PO QACHS duloxetine [Cymbalta] 60 mg capsule,delayed release(DR/EC) 60 mg PO DAILY furosemide [Lasix] 20 mg tablet 20 mg PO BID gabapentin 400 mg capsule 400 mg PO BID morphine 30 mg tablet extended release 30 mg PO DAILY Print Language: Irish Patient Instructions: Surg Dc Stand Alone Forms: PCP List Follow-up Care: Dyllan Baugh MD [Primary Care Provider, Internal Medicine] Vitals documented within 30 minutes of discharge?: Yes
[2025-06-19] MEDS: ONDANSETRON ODT 4 MG TABLET TL PRN (09:36)
[2025-06-19] MEDS: APIXABAN 5 MG TABLET PO SCH (09:37)
[2025-06-19] MEDS: oxyCODONE 5 MG TABLET PO SCH (09:37)
[2025-06-19] MEDS: oxyCODONE 5 MG TABLET PO STA (12:45)
[2025-06-19] MEDS: PROCHLORPERAZINE 5 MG TABLET PO PRN (12:45)
--- NOTE | 2025-06-19 14:03 | PROVIDER PROGRESS NOTE ---
Subjective Prog Note Date Prog Note Date: 06/19/25 Prog Note Time: 14:03 Subjective Subjective: Pt reported feeling much better this AM in regards to her respiratory s/s and WOB, and had related she felt as though a discharge plan later same day was indicated. At approximately 1130, pt's daughter related to the [employer] student concerns that her mother was now vomiting and coughing worse than before, and that she had worries about her own ability to care for her mother at home if she continued to be ill or if her condition declined. Per pt, she related she does want to discharge to home and Current Medications Current Medications Current Medications: Current Medications Generic Name Dose Route Start Last Admin Trade Name Freq PRN Reason Stop Dose Admin Acetaminophen 1,000 mg 06/18/25 14:00 06/19/25 05:34 Acetaminophen 500 Mg Tablet PO 1,000 mg TID NELLY Administration Albuterol/Ipratropium 3 ml 06/17/25 23:09 Ipratropium/Albuterol 3 Ml Neb INH PRN PRN PER PHYSICIAN ORDER Amlodipine Besylate 5 mg 06/18/25 09:00 06/19/25 08:14 Amlodipine 5 Mg Tablet PO 5 mg DAILY NELLY Administration Apixaban 5 mg 06/19/25 10:00 06/19/25 09:37 Apixaban 5 Mg Tablet PO 5 mg BID NELLY Administration Atorvastatin Calcium 80 mg 06/17/25 21:00 06/18/25 22:39 Atorvastatin 40 Mg Tablet PO 80 mg QPM NELLY Administration Cholecalciferol 50 mcg 06/19/25 09:00 06/19/25 08:14 Cholecalciferol 25 Mcg Tablet PO 50 mcg DAILY NELLY Administration Duloxetine HCl 60 mg 06/19/25 09:00 06/19/25 08:14 Duloxetine 60 Mg Capsule PO 60 mg DAILY NELLY Administration Ferrous Sulfate 325 mg 06/19/25 09:00 06/19/25 08:14 Ferrous Sulfate 325 Mg Tablet PO 325 mg DAILY NELLY Administration Guaifenesin 10 ml 06/18/25 13:35 Guaifenesin/Dextromethorphan 10 Ml Udc PO Q6HR PRN Cough Lidocaine 1 patch 06/18/25 17:00 06/18/25 17:31 Lidocaine Patch 4% TOP 1 patch Q24H NELLY Administration Melatonin 3 mg 06/18/25 00:25 06/18/25 22:39 Melatonin 3 Mg Tablet PO 3 mg QPM NELLY Administration Metoprolol Succinate 12.5 mg 06/18/25 09:00 06/19/25 08:14 Metoprolol Succinate 25 Mg Tablet PO 12.5 mg DAILY NELLY Administration Ondansetron HCl 4 mg 06/17/25 18:26 Ondansetron 4 Mg/2 Ml Vial IVP Q6HR PRN Nausea / Vomiting Ondansetron HCl 4 mg 06/18/25 16:25 06/19/25 09:36 Ondansetron Odt 4 Mg Tablet TL 4 mg Q6HR PRN Administration Nausea / Vomiting Oxycodone HCl 5 mg 06/19/25 10:00 06/19/25 09:37 Oxycodone 5 Mg Tablet PO 5 mg TID NELLY Administration Pantoprazole Sodium 40 mg 06/19/25 07:00 06/19/25 06:27 Pantoprazole 40 Mg Tablet PO 40 mg QDAC NELLY Administration Prochlorperazine Maleate 5 mg 06/19/25 12:25 06/19/25 12:45 Prochlorperazine 5 Mg Tablet PO 5 mg Q6HR PRN Administration Nausea / Vomiting Sodium Chloride 10 ml 06/18/25 16:25 Sodium Chloride Flush 0.9% 10 Ml Syringe IVP PRN PRN NEEDED PER PROVIDER ORDERS Sodium Chloride 10 ml 06/18/25 17:00 06/19/25 08:14 Sodium Chloride Flush 0.9% 10 Ml Syringe IVP 10 ml 0100,0900,1700 NELLY Administration Temazepam 15 mg 06/19/25 06:47 Temazepam 15 Mg Capsule PO QPM PRN Insomnia Trazodone HCl 200 mg 06/18/25 13:36 Trazodone 50 Mg Tablet PO HS PRN Insomnia Objective Vital Signs/Intake & Output Vital Signs: Vital Signs x48h Temp Pulse Resp BP BP Pulse Ox 06/19/25 10:46 36.1 C L 98 16 150/103 H 174/98 H 97 06/19/25 08:35 36.5 C 71 16 159/82 H 94 Intake & Output: Intake & Output 06/16/25 06/17/25 06/18/25 06/19/25 23:59 23:59 23:59 23:59 Intake Total 0 / 0 1040 / 1040 400 / 400 Output Total 215 / 215 Balance 0 / 0 1040 / 1040 185 / 185 Weight (kg) 74.3 kg 74.3 kg Lab Results 06/19/25 05:17 06/19/25 05:17 Other Labs: Lab Results x24hrs 06/19/25 06/18/25 06/18/25 Range/Units 05:17 18:54 18:54 WBC 33.1 H (4.8-10.8) x10^3/uL RBC 3.73 L (4.20-5.40) 10^6/uL Hgb 9.4 L (12.0-16.0) g/dL Hct 32.7 L (37.0-47.0) % MCV 87.7 (81.0-99.0) fL MCH 25.2 L (27.0-31.0) pg MCHC 28.7 L (32.0-36.0) g/dL RDW 18.9 H (12.0-15.0) % Plt Count 166 (130-450) 10^3/uL MPV 11.7 H (7.9-10.8) fL Neut # (Auto) Not Reportable Lymph # (Auto) Not Reportable [place] # (Auto) Not Reportable Eos # (Auto) Not Reportable Baso # (Auto) Not Reportable Absolute Nucleated RBC Not Reportable Total Counted 100 Band Neuts % (Manual) 4 (0 - 10) % Reactive Lymphs % (Man) 4 % Abnorm Lymph % (Manual) 0 % Metamyelocytes % 7 H ( - 0) % Myelocytes % 5 H ( - 0) % Blast Cells % 4 H* % Nucleated RBC % Not Reportable Neutrophils # (Manual) 23.8 H (1.5-6.6) 10^3/uL Lymphocytes # (Manual) 4.0 H (1.5-3.5) 10^3/uL Monocytes # (Manual) 0.0 (0.0-1.0) 10^3/uL Eosinophils # (Manual) 0.0 (0-0.7) 10^3/uL Basophils # (Manual) 0.0 (0-0.1) 10^3/uL Nucleated RBCs 14 % Differential Comment MANUAL DIFFERENTIAL WBC Morphology (NORMAL) Platelet Estimate NORMAL (130-450,000) (NORMAL) Platelet Morphology (NORMAL) RBC Morph Micro Appear 4+ ANISOCYTOSIS 1+ TEARDROP CELLS 1+ STOMATOCYTES (NORMAL) Sodium 132 L (135-145) mmol/L Potassium 5.1 H (3.5-4.5) mmol/L Chloride 100 L (101-111) mmol/L Carbon Dioxide 27 (21-32) mmol/L Anion Gap 5.0 L (6-13) BUN 21 H (6-20) mg/dL Creatinine 1.1 (0.6-1.3) mg/dL Estimated GFR (MDRD) 47 L (>89) Glucose 146 H (74-104) mg/dL Calcium 8.5 (8.5-10.3) mg/dL Total Bilirubin 1.6 H (0.2-1.0) mg/dL AST 55 H (10-42) IU/L ALT 21 (10-60) IU/L Alkaline Phosphatase 121 (42-121) IU/L Total Protein 5.9 L (6.4-8.9) g/dL Albumin 3.4 (3.2-5.5) g/dL Globulin 2.5 (2.1-4.2) g/dL Albumin/Globulin Ratio 1.4 (1.0-2.2) Blood Type Antibody Screen Crossmatch IS Only 06/18/25 06/18/25 06/18/25 Range/Units 18:54 18:54 18:54 WBC (4.8-10.8) x10^3/uL RBC (4.20-5.40) 10^6/uL Hgb (12.0-16.0) g/dL Hct (37.0-47.0) % MCV (81.0-99.0) fL MCH (27.0-31.0) pg MCHC (32.0-36.0) g/dL RDW (12.0-15.0) % Plt Count (130-450) 10^3/uL MPV (7.9-10.8) fL Neut # (Auto) Lymph # (Auto) [place] # (Auto) Eos # (Auto) Baso # (Auto) Absolute Nucleated RBC Total Counted Band Neuts % (Manual) (0 - 10) % Reactive Lymphs % (Man) % Abnorm Lymph % (Manual) % Metamyelocytes % ( - 0) % Myelocytes % ( - 0) % Blast Cells % % Nucleated RBC % Neutrophils # (Manual) (1.5-6.6) 10^3/uL Lymphocytes # (Manual) (1.5-3.5) 10^3/uL Monocytes # (Manual) (0.0-1.0) 10^3/uL Eosinophils # (Manual) (0-0.7) 10^3/uL Basophils # (Manual) (0-0.1) 10^3/uL Nucleated RBCs % Differential Comment WBC Morphology (NORMAL) Platelet Estimate (NORMAL) Platelet Morphology (NORMAL) RBC Morph Micro Appear 1+ SCHISTOCYTES 1+ POLYCHROMASIA 2+ HYPOCHROMASIA (NORMAL) Sodium (135-145) mmol/L Potassium (3.5-4.5) mmol/L Chloride (101-111) mmol/L Carbon Dioxide (21-32) mmol/L Anion Gap (6-13) BUN (6-20) mg/dL Creatinine (0.6-1.3) mg/dL Estimated GFR (MDRD) (>89) Glucose (74-104) mg/dL Calcium (8.5-10.3) mg/dL Total Bilirubin (0.2-1.0) mg/dL AST (10-42) IU/L ALT (10-60) IU/L Alkaline Phosphatase (42-121) IU/L Total Protein (6.4-8.9) g/dL Albumin (3.2-5.5) g/dL Globulin (2.1-4.2) g/dL Albumin/Globulin Ratio (1.0-2.2) Blood Type Antibody Screen Crossmatch IS Only 06/18/25 06/17/25 Range/Units 18:54 17:53 WBC 36.0 H* (4.8-10.8) x10^3/uL RBC 3.98 L (4.20-5.40) 10^6/uL Hgb 9.8 L (12.0-16.0) g/dL Hct 35.0 L (37.0-47.0) % MCV 87.9 (81.0-99.0) fL MCH 24.6 L (27.0-31.0) pg MCHC 28.0 L (32.0-36.0) g/dL RDW 18.6 H (12.0-15.0) % Plt Count 196 (130-450) 10^3/uL MPV 10.9 H (7.9-10.8) fL Neut # (Auto) Not Reportable Lymph # (Auto) Not Reportable [place] # (Auto) Not Reportable Eos # (Auto) Not Reportable Baso # (Auto) Not Reportable Absolute Nucleated RBC Not Reportable Total Counted 100 Band Neuts % (Manual) 2 (0 - 10) % Reactive Lymphs % (Man) % Abnorm Lymph % (Manual) 3 % Metamyelocytes % 4 H ( - 0) % Myelocytes % 5 H ( - 0) % Blast Cells % 3 H* % Nucleated RBC % Not Reportable Neutrophils # (Manual) 24.8 H (1.5-6.6) 10^3/uL Lymphocytes # (Manual) 5.4 H (1.5-3.5) 10^3/uL Monocytes # (Manual) 0.4 (0.0-1.0) 10^3/uL Eosinophils # (Manual) 1.1 H (0-0.7) 10^3/uL Basophils # (Manual) 0.0 (0-0.1) 10^3/uL Nucleated RBCs 18 % Differential Comment MANUAL DIFFERENTIAL WBC Morphology 1+ TOXIC GRANULATION (NORMAL) Platelet Estimate NORMAL (130-450,000) (NORMAL) Platelet Morphology NORMAL APPEARANCE (NORMAL) RBC Morph Micro Appear 3+ ANISOCYTOSIS (NORMAL) Sodium (135-145) mmol/L Potassium (3.5-4.5) mmol/L Chloride (101-111) mmol/L Carbon Dioxide (21-32) mmol/L Anion Gap (6-13) BUN (6-20) mg/dL Creatinine (0.6-1.3) mg/dL Estimated GFR (MDRD) (>89) Glucose (74-104) mg/dL Calcium (8.5-10.3) mg/dL Total Bilirubin (0.2-1.0) mg/dL AST (10-42) IU/L ALT (10-60) IU/L Alkaline Phosphatase (42-121) IU/L Total Protein (6.4-8.9) g/dL Albumin (3.2-5.5) g/dL Globulin (2.1-4.2) g/dL Albumin/Globulin Ratio (1.0-2.2) Blood Type O POSITIVE Antibody Screen NEGATIVE Crossmatch IS Only See Detail Assessment/Plan Problem List (1) Anemia, chronic disease: (2) Upper respiratory infection, viral: (3) Compression fracture of L2 lumbar vertebra:
--- NOTE | 2025-06-19 15:25 | Discharge Summary ---
"<Statement entered by Uriel Julio DO - 06/19/25 19:23> I was present with the [employer] student on the hospitalist service. I personally verified the history of present illness and performed the physical examination and medical decision making. I have verified the students documentation for this encounter and agree with the plan of care below. In addition this is an 84-year-old female with recent diagnosis of myelodysplastic syndrome who presented initially for malaise and low back pain. She was found to have an acute L2 compression fracture and rhinovirus with a recent known sick contact. However, additionally her labs in the ED revealed her to have an acute on chronic anemia. Her hemoglobin on admission was 6.5. There was some confusion about what type of blood products she needed, and she had CMV antibody negative blood shipped up from [place]. On further discussion with the blood bank, leukoreduced and irradiated blood is appropriate for this patient. After the first unit of blood she received, her hemoglobin only increased to 6.7. She received a second unit which post H/H revealed to be 9.4. This held steady on day of discharge. She feels well with regard to her anemia. Her back pain is persistent. She has been started on scheduled Tylenol, oxycodone. Lidocaine patches if she finds them helpful. Additionally calcitonin has been sent in by the ED to the pharmacy though this is not expected to help for several days. Avoiding NSAIDs and steroids as this will slow bone healing. She was able to work with PT on the day of discharge, they recommend outpatient management. A brace may be helpful for her and was recommended though she is reticent to use. She is post be getting a port placed by general surgery for treatment of her MDS, there was consideration of doing that during this hospitalization as she was scheduled for it on 06/19. She was feeling unwell enough on the day prior to procedure that she opted to forego the procedure this week and general surgery will try and do it next week. Recommend ongoing vigilant monitoring of her blood counts at 2 weeks time and then every 2 weeks or monthly until stability is achieved. Discharge Summary Admit Date: 06/18/25 Discharge Date: 06/19/25 Discharging Provider: Uriel Julio DO Primary Care Provider: Dyllan Baugh Code Status: Do Not Attempt Resuscitation Discharge Facility Name: [facility] DIAGNOSES Discharge Diagnoses with Status of Each Condition: # Acute on chronic anemia, improved Hgb 6.5 on arrival improved to 9.4 with 2U PRBC. Likely multifactorial in etiology. Known gastric ulcers but no acute bleeding. Mostly contributed to by MDS. Notably she was in the hospital 1 month ago with similar presentation. - Continue PPI - F/u general surgery who scoped her in April. - CBC in 2 weeks, continue to monitor as she starts treatment for MDS, below - Needs LR/IRR blood per oncology for future transfusions # Acute hypoxemic respiratory failure, resolved # Rhinovirus infection, improved On initial presentation was requiring 1 to 2 L of oxygen in the ED. This normalized by the time she reached the floor. She had was positive for rhinovirus on her viral respiratory panel. She had recent sick contact with her son. On day of discharge, she is not having any fevers. No significant cough. She is satting fine on room air while ambulating. # Acute L2 spinal compression fracture, stable # Lumbar back pain Lifted a pack of water in the days preceding admission. [place] a twinge in her back. Unclear if malignancy may have played a role, but unlikely. Pain management required scheduled tylenol, oxycodone, and lidocaine patch. C/B opioid induced nausea- this was responsive to compazine. PT evaluated prior to discharge. - Pain management With scheduled Tylenol, oxycodone, lidocaine patches - Calcitonin was sent in by ED, recommend continuing - PT says okay for home, sending skilled nurse, PT # MDS, stable Recent diagnosis - F/U with surgery regarding port placement as early as next week - Continue holding DOAC HPI History of Present Illness: 84 yo female recently seen at this hospital, discharged a month ago. She has a new diagnosis of myelodysplastic syndrome which is fairly aggressive, she has required transfusions before for this. She presents after an acute respiratory illness for the last several days. She says her son had a cold previous to this. Compounding her symptoms, she injured her low back while lifting a jug of water. She has an acute L2 compression fracture with less than 5% height loss. Her back pain is her biggest concern. In the ED, she was found to have hemoglobin of 6.5 down down from 7.9 on 05/25. She has been transfused 1 unit which brought her from 6.5-6.9. After second unit, Hgb raised to 9.4. Pt remained vitally stable with one transient episode of presumed pain-related hypertension ~170 systolic, during an acute episode of pain and vomiting x3. Pt nausea and pain controlled at this time with Compazine 5mg PO x1 and an additional PO Oxycodone 5mg PO x1 for breakthrough pain. PT will be sent with these medications for pain and nausea control as well as her current home medications. CONSULTS | PROCEDURES Consultations: Blood bank, GenSurg Procedures: Lumbar spine CT 06/17 HOSPITAL COURSE Hospital Course: Patient presented with acute on chronic anemia. She received 1U PRBC in the ED which did not significantly change her hgb (6.5>6.7). Tolerated a second unit and repeat hgb was >8. She remained stable overnight with stable vital signs. Morning labs revealed hgb of 9.4. Discussed with blood bank. She does not need CMV Ab negative blood, she just needs LR/IRR blood for future transfusions. Her course was complicated by a concurrent acute L2 compression fracture that required scheduled APAP, oxycodone, lidocaine patch to control. We do not have [place] calcitonin in the hospital but this was prescribed at discharge. She should expect to feel better over the coming weeks. PT evaluated and recommend no further in patient rehab. She walks with a walker at baseline. She would benefit from a brace to limit trunk rotation. Between her pain and narcotics, she did experience some nausea. Previously not responsive to ondansetron, this also was less effective here. She responeded well to compazine. Prescribed at discharge. She finally has a acute rhinovirus. She was back to room air by the time of admission, and did not require further o2 support during her stay. Patient was seen and evaluated on day of discharge. She was seen by PT who recommends no further inpatient rehab needed. Multiple discussions with patient's family on day of discharge. Patient feels comfortable going home, daughter is nervous about taking her home. Her pain is well-managed at the time of discharge and she is no longer nauseous. She is able to ambulate with the assistance of a walker which she has at home. She is on room air. ALLERGIES Allergies Allergy/AdvReac Type Severity Reaction Status Date / Time clopidogrel bisulfate * Allergy Severe Rash Verified 06/17/25 17:38 (From Plavix) erythromycin base Allergy Mild Rash Verified 06/17/25 17:38 (Erythromycin Base) Penicillins Allergy Mild Rash Verified 06/17/25 17:38 spironolactone Allergy Mild Rash Verified 06/17/25 17:38 diazepam (From Valium) AdvReac Mild Anxiety Verified 06/17/25 17:38 MEDICATIONS Ambulatory Orders Medication Instructions Recorded Confirmed atorvastatin 40 mg tablet (Lipitor) 80 mg PO HS 06/18/25 amlodipine 5 mg tablet 5 mg PO DAILY 01/14/2406/18 ondansetron 4 mg disintegrating 4 mg translingual Q12H PRN Nausea 01/14/24 06/18/25 tablet / Vomiting multivitamin with folic acid 400 1 tab PO DAILYWM 12/2506/18/25 mcg tablet (Thera) metoprolol succinate 25 mg 12.5 mg PO DAILY 03/18/25 1 08/18/24 tablet,extended release 24 hr diphenoxylate-atropine 2.5 1 - 2 tab PO Q6H PRN diarrh ea 03/19/25 06/18/25 mg-0.025 mg tablet apixaban 5 mg tablet (Eliquis) 5 mg PO BID 05/11/25 Held on 06/19/25. Instructions: Resume on 06/27/25. Hold until follow-up with general surgery cholecalciferol (vitamin D3) 25 2,000 unit PO DAILY 06/18/25 mcg (1,000 unit) capsule (Vitamin D3) ferrous sulfate 325 mg (65 mg 325 mg PO DAILY 06/14/25 06/18/25 iron) tablet (Feosol) lidocaine 5 % topical patch 1 patch topical DAILY PRN pain 06/14/25 06/18/25 oxycodone-acetaminophen 10 mg-325 1 tab PO Q6HR PRN pa in 06/14/25 06/18/25 mg tablet pantoprazole 40 mg tablet,delayed 40 mg PO DAILY 06/1406/18/25 release temazepam 22.5 mg capsule 22.5 mg PO HS 06/14/2506/18 Held on 06/19/25. Instructions: Resume on 06/27/25. Avoid taking while on opiates calcitonin (salmon) 200 1 spray intranasal (ALT) AUGUSTUS LY 06/17/25 unit/actuation nasal spray #3.7 mL dexamethasone 2 mg tablet 2 mg PO DAILY #5 tabs oxycodone 5 mg tablet 5 mg PO TID PRN pain #20 tab s 06/17/25 duloxetine 60 mg capsule,delayed 60 mg PO DAILY 06/18/25 release (Cymbalta) furosemide 20 mg tablet (Lasix) 20 mg PO BID 06/18/25 06/18/25 gabapentin 400 mg capsule 400 mg PO BID 06/18/2506/18 hydrocodone 10 mg-acetaminophen 2 tab PO Q6H PRN pain 06/18/25 06/18/25 325 mg tablet ipratropium bromide 42 mcg (0.06 2 spray intranasal TI D allergy 06/18/25 06/18/25 %) nasal spray symptoms morphine 30 mg tablet,extended 30 mg PO DAILY 06/18/25 06/18/25 release sucralfate 1 gram tablet 1 g PO QACHS 06/18/25 trazodone 100 mg tablet 200 mg PO HS 06/18/25 acetaminophen 500 mg tablet 1,000 mg (2 x 500 mg) PO T ID #0 06/19/25 (Tylenol Extra Strength) tabs lidocaine 4 % topical patch 1 patch topical Q24H #15 e a 06/19/25 oxycodone 5 mg tablet 5 mg PO TID #20 tabs 5 prochlorperazine maleate 5 mg 5 mg PO Q6HR PRN Nausea / Vomiting 06/19/25 tablet #25 tabs PHYSICAL EXAM AT DISCHARGE Vital Signs: Vital Signs x48h Temp Pulse Resp BP BP Pulse Ox 06/19/25 16:55 36.6 C 74 18 167/95 H 93 06/19/25 15:50 36.4 C L 79 20 169/100 H 178/101 H 95 General Appearance: positive No acute distress and Alert Respiratory: positive No respiratory distress Skin: positive Color nml Neurologic/Psychiatric: positive Oriented x3 LABS 06/19/25 05:17 06/19/25 05:17 DIAGNOSTIC IMAGING Diagnostic Imaging Results: Final report reviewed and Read independently SEPSIS Current Stage of Sepsis: Ruled out TIME SPENT Time Spent in Discharge (Minutes): 42 Discharge Plan Discharge Patient Disposition: 01 Home, Self Care Condition: Good Medically Cleared Date:: 06/19/25 Prescriptions: New oxycodone 5 mg tablet 5 mg PO TID PRN (Reason: pain) Qty: 20 0RF calcitonin (salmon) 200 unit/actuation spray,non-aerosol 1 spray intranasal (ALT) DAILY Qty: 3.7 0RF dexamethasone 2 mg tablet 2 mg PO DAILY Qty: 5 0RF lidocaine 4 % Adhesive Patch,Medicated 1 patch topical Q24H Qty: 15 0RF prochlorperazine maleate 5 mg Tablet 5 mg PO Q6HR PRN (Reason: Nausea / Vomiting) Qty: 25 0RF oxycodone 5 mg Tablet 5 mg PO TID Qty: 20 0RF acetaminophen [Tylenol Extra Strength] 500 mg Tablet 1,000 mg PO TID Qty: 0 0RF Continued atorvastatin [Lipitor] 40 MG tablet 80 mg PO HS amlodipine 5 MG tablet 5 mg PO DAILY ondansetron 4 MG tablet,disintegrating 4 mg translingual Q12H PRN (Reason: Nausea / Vomiting) multivitamin with folic acid [Thera] 1 TAB tablet 1 tab PO DAILYWM 0RF metoprolol succinate 25 mg tablet extended release 24 hr 12.5 mg PO DAILY Patient Comments: TAKE 1/2 TABLET BY MOUTH ONCE DAILY diphenoxylate-atropine 2.5-0.025 mg tablet 1 - 2 tab PO Q6H PRN (Reason: diarrhea) Patient Comments: TAKE 1 TO 2 TABLETS BY MOUTH EVERY SIX HOURS NEEDED, up to 8 tablets daily pantoprazole 40 mg Tablet,Delayed Release (Dr/Ec) 40 mg PO DAILY ferrous sulfate [Feosol] 325 mg (65 mg iron) tablet 325 mg PO DAILY lidocaine 5 % adhesive patch,medicated 1 patch topical DAILY PRN (Reason: pain) Rx Instructions: leave on most painful area for up to 12 hrs oxycodone-acetaminophen 10-325 mg tablet 1 tab PO Q6HR PRN (Reason: pain) cholecalciferol (vitamin D3) [Vitamin D3] 25 mcg (1,000 unit) capsule 2,000 unit PO DAILY trazodone 100 mg tablet 200 mg PO HS hydrocodone-acetaminophen 10-325 mg tablet 2 tab PO Q6H PRN (Reason: pain) ipratropium bromide 42 mcg (0.06 %) spray,non-aerosol 2 spray intranasal TID Rx Instructions: administer into each nostril sucralfate 1 gram tablet 1 g PO QACHS duloxetine [Cymbalta] 60 mg capsule,delayed release(DR/EC) 60 mg PO DAILY furosemide [Lasix] 20 mg tablet 20 mg PO BID gabapentin 400 mg capsule 400 mg PO BID morphine 30 mg tablet extended release 30 mg PO DAILY Held Eliquis 5 mg tablet 5 mg PO BID Hold Instructions: Resume on 06/27/25. Hold until follow-up with general surgery temazepam 22.5 mg capsule 22.5 mg PO HS Hold Instructions: Resume on 06/27/25. Avoid taking while on opiates Diet: Regular Interventions: Belongings Inventory Last Done: 06/18/25 13:44 Discharge Last Done: 06/19/25 17:08 Discharge Checklist - Nursing Last Done: 06/19/25 17:05 Discharge Vital Signs (30 Minutes) Last Done: 06/19/25 16:55 Health Concerns: You admitted the hospital with rhinovirus, a new L2 compression fracture, and worsened red blood cell counts. You were admitted primarily for your worsening anemia. He received 2 units of red blood cells during this hospitalization and your hemoglobin is now up over 9. You had significant pain from your lumbar spinal fracture which is expected to get better over the coming days. Would expect you to feel better within the next 2 weeks. You have been prescribed calcitonin already by the ER physician. This is already at the pharmacy. I am also sending you some opiates and recommend you continue to take scheduled Tylenol daily. In order to continue to get better I recommend the following: * Continue taking medications as prescribed * Wear a brace as needed to limit your pain * Avoid taking any benzodiazepines such as temazepam while you are on narcotics * Avoid any heavy lifting for the next 4 weeks * Follow-up with your primary care doctor as you may need more pain medications moving forward Reasonable that you have opted not to pursue the port placement while you are in the hospital this hospitalization. Keep in contact with general surgery who can consider placing the port as early as next week. Continue holding your Apixaban until you follow-up with them for the port. Finally with regard to your anemia, you should have regular blood work every 2 to 4 weeks to make sure that your blood counts are remaining stable. It has been a pleasure taking care of you during this hospitalization. Please follow-up with your primary care doctor in the next 2 weeks Print Language: Polish Patient Instructions: Calcitonin, Compression Fx Follow-up Care: Dyllan Baugh MD [Primary Care Provider, Internal Medicine] Vitals documented within 30 minutes of discharge?: Yes"
[2025-06-19 17:06] VITALS: BP 167/95; TEMP 97.9; O2SAT 93
--- NOTE | 2025-06-19 17:14 | PT Plan of Care ---
PT Plan of Care Physical Therapy Plan of Care: Diagnosis Diagnosis rhinovirus Diagnosis L2 compression fx Referring Provider Uriel Julio Patient Status Observation Chief Complaint Chief Complaint back pain, cough Onset of Chief Complaint ESTHETICIAN SPA Medical History (Updated 06/18/25 @ 16:00 by Marcelo Broussard) Leukocytosis Implantable loop recorder present GI bleed Nausea vomiting and diarrhea Food poisoning Bronchitis, asthmatic Accidental fall Fracture of greater tuberosity of humerus Vomiting Hot flashes Anemia Generalized weakness Near syncope Dyspnea Urinary tract infection Dehydration Open wound of abdomen ISTAP type 1 skin tear of right forearm Open wound of right wrist Left leg cellulitis Shortness of breath Dizziness Gastrointestinal hemorrhage Anemia due to acute blood loss Venous stasis ulcer of left lower leg with edema of left lower leg Atrial fibrillation Non-pressure chronic ulcer of skin of other sites with fat layer exposed Esophageal varices determined by endoscopy Hyperlipidemia HTN (hypertension) ETOH abuse Hx of cholecystitis GI bleed due to NSAIDs Surgical History (Updated 04/20/25 @ 10:58 by Robyn Morel MA) History of vertebroplasty (~1979) T-[address] Leahy History of tonsillectomy and adenoidectomy History of bilateral cataract extraction History of appendectomy Balance/ Functional Results Sitting Balance Good Standing Balance Fair Assessment Assessment Pt is a pleasant 84yo F referred for PT eval d/t acute L2 compression fx. Admitted with fx and found to have rhinovirus. PMH includes recent dx of MDS. Please see medical record for further hx. Cleared for eval by hospitalist, pt agrees to participate. Per hospitalist, pt may benefit from lumbar brace but is cleared to mobilize without. Pt reports she has been ambulatory with FWW and nsg during acute stay. Transfers to R EOB with logroll technique without cueing, STS with FWW and SBA and amb up to 40' with same. Pt reports pain but able to participate well. Limited by cough > fatigue. Pt may benefit from 1-2 additional PT sessions in acute setting to ensure functional indep prior to dc home. When medically clear, PT rec dc home with increased CG support. Do not anticipate continued rehab need at dc. Goals Improve gait ability to: Ind Assistive Device Used: Front Wheeled Walker PT Plan of Care Duration 1-2 more sessions Discharge Recommendations Discharge Location Previous Living Situation Support/Services Needed With assist Other possible FWW Transport Needs at Discharge Personal vehicle
== END 2025-06-19 17:05 | disposition home or self-care (01) ==
LOC: MS2 15:10 → ED 15:10 → MS2 06-18 12:50
PROVIDERS: ADMIT Student in an Organized Health Care Education/Training Program; ATTEND Student in an Organized Health Care Education/Training Program